=== PATIENT | female | born 1960 | race Two or more races ===

== ENCOUNTER 2025-06-08 12:53 | Inpatient (IN) | payer MEDICARE, MEDICAID ==
[2025-06-08] VITALS (7 sets, daily range): BP systolic 100–117; BP diastolic 58–71; PULSE 76–99; RESP 15–21; TEMP 97.5–98.2; O2SAT 94–99
[~2025-06-08] VITALS: Ht 160 cm; Wt 138.5 kg
[~2025-06-08 12:53] MED LIST: SILD20TA41 PO; TIMO0.5S32 EACHEYE; [UNRECOGNIZED DRUG - CODE] EACHEYE
--- NOTE | 2025-06-08 13:14 | ED.PDOC ---
SOB-HPI HPI Comments HPI: 65 year old female presents to the emergency department via EMS with a chief complaint of shortness of breath onset 1 month. Per EMS, patient has been experiencing shortness of breath for the past month as well as bilateral feet swelling, abdominal distention, worsens with exertion. Today, shortness of breath worsened, 911 was called. Upon EMS arrival, O2 sat was 85% on RA, was placed on 2L O2, sat improved to 97%. Patient experienced similar episode July 2024, was admitted for about 2 weeks. Denies chest pain, dizziness, fever, chills, cough, cold, congestion, numbness/tingling. No other symptoms or modifying factors present at this time. Initial Vitals BP: 105/60 HR: 70 RR: 17 O2 Sat: 97% on 2L Temp: 98.2 F Past Medical history: CHF, anemia, a-fib, pulmonary HTN Past Surgical history: Denies Medications: Lasix Social History: Denies smoking, ETOH, and drug use. Allergies: NKDA HPI: Poor Historian. REVIEW OF SYSTEMS: CONSTITUTIONAL: Denies acute: fever, diaphoresis, chills, generalized weakness. HEAD: Denies acute: headache, photophobia Eyes: Denies acute: Double vision, vision loss, eye pain, eye discharge. EARS: Denies acute: tinnitus, hearing loss, ear discharge, ear pain, THROAT: Denies acute: sore throat, swelling, difficulty swallowing , pain with swallowing, change in voice. NECK: Denies acute: neck pain, neck swelling, stiff neck. HEART: Denies acute : chest pain, palpitations, LUNGS: Denies acute: wheezing, cough, hemoptysis ABDOMEN: Denies acute: abdominal pain, Nausea, Vomiting, diarrhea, melena , hematemesis, hematochezia SKIN: Denies acute: rash, redness, lesions, itchiness. EXTREMITIES: Denies acute: calf pain, numbness, tingling, weakness, denies pain in extremity. Denies acute: Low back pain. Neuro: Denies acute: focal neurological deficit, motor or sensory focal neurological deficit, tremors, seizure like activity, confusion, dizziness, change in mental status, loss of bowel or bladder function, cauda equina like symptoms. : Denies acute: dysuria, hematuria, flank pain, increase in urinary frequency. PSYCH: Denies acute: hallucination, suicidal ideation, homicidal ideation. FEMALE: Denies acute: abnormal vaginal bleeding, foul odor, unusual discharge. PHYSICAL EXAM: General: ----moderate---acute distress, awake and alert. Head: normocephalic, atraumatic. Neck: supple, trachea is midline, no swelling. Throat: Normal phonation. Eyes:, no erythema, no purulent discharge, no proptosis, no icterus. Heart: regular rate, regular rhythm, mild murmur noted. Lungs: Moderate apparent respiratory distress, Able to speak in full sentences. No wheezing, no rhonchi, no crackles. No stridors Clear to auscultation bilaterally. Abdomen: non tender to palpation, non distended, soft, no guarding, no rebound, + bowel sounds. Obese Neuro: Awake, Alert, oriented to name, self, situation, follows commands GCS=15. Speech is normal. Skin: no petechia, no purpura, no cyanosis, non-pale, not jaundice. Lower extremities: --3/4 b/l - Pitting edema no deformity, no focal swelling, no calf TTP. Makes eye contact. moves all four extremities. Face: no apparent facial droop. ED COURSE: DISCLAIMER: This medical document was created using an electronic medical record system with voice recognition software and computerized dictation system. Although this document has been carefully reviewed, there might still be some phonetic and typographical errors. Occasional wrong-word or "sound-alike" substitutions may have occurred due to the inherent limitations of voice recognition software. These areas are purely typographical due to imperfections of the software programs and do not reflect any compromise in the patient's medical care. Please read the chart carefully and recognize, using context, where these substitutions have occurred. Time Seen by MD: 13:00 Reviewed notes: Medications, Allergies Information Source: Patient, Emergency Med Personnel Mode of Arrival: EMS Severity: Moderate Timing: Months Duration: Since onset Context: With Light Exertion PE Risk Factors: None History of: CHF Prehospital treatment: Oxygen Modifying Factors: Nothing Associated Signs and Symptoms: Leg Swelling Past Medical History PAST MEDICAL HISTORY: AFIB, Anemia, CHF Past Medical History (Other): pulmonary HTN Surgical History: Denies all surgeries COMPETITIVE INTELLIGENCE ANALYST History: No Pertinent COMPETITIVE INTELLIGENCE ANALYST History Family History Family History: Reviewed,noncontributory to illness, No family hx of Cancer, No family hx of DM, No family hx of Heart april, No family hx of HTN, No family hx ofKidney april, No family hx of Liver april, No family hx of Lung april, No family hx of Stroke Social History Smoker: Non-Smoker Alcohol: Denies ETOH Use Drugs: Denies Drug Use Lives In: Home Was a procedure done? Was a procedure done?: No Differential Dx Differential Diagnosis: Other (DDx include ACS, unstable angina, anxiety, PE, pneumothroax, neoplasm, cardiac ischemia, COPD, asthma, CHF, pleural effusion, tobacco abuse, pneumonia, hypoxia, hypercapnia, anemia., infection/sepsis., pulmonary edema. Asthma, Cardiac tamponade, infection.) X-Ray, Labs, Meds, VS Vital Signs Date Time Temp Pulse Resp B/P (MAP) Pulse Ox O2 Delivery O2 Flow Rate FiO2 06/08/25 15:30 99 15 115/58 (77) 95 06/08/25 14:15 111/44 06/08/25 13:39 96 Nasal Cannula* 2 28 06/08/25 13:20 82 21 96 Nasal Cannula* 2 28 06/08/25 13:20 98.0 82 21 106/55 (72) 96 98.0 06/08/25 12:59 88 06/08/25 12:55 98.2 70 17 105/60 97 98.2 Lab Test 06/08/25 14:41 06/08/25 14:17 06/08/25 13:24 Range/Units Troponin I High Sensitivity 21 25 </=34 ng/L Urine Color Light-yellow Yellow Urine Clarity Clear Clear Urine pH 5.5 5.0-9.0 Urine Specific [place] 1.013 1.001-1.035 Urine Protein Trace H Negative Urine Ketones Negative Negative Urine Blood Negative Negative /uL Urine Nitrite Negative Negative Urine Bilirubin Negative Negative Urine Urobilinogen Normal Negative mg/dL Urine Leukocyte Esterase Trace Negative /uL Urine RBC None seen 0 - 4 /hpf Urine Microscopic WBC 8 H 0-5 /HPF Urine Squamous Epithelial Cells Few <5 /hpf Urine Bacteria None seen None Seen /hpf Urine Glucose 3+ H Normal mg/dL Urine Opiates Screen Neg NEGATIVE Urine Fentanyl Screen Neg NEGATIVE Urine Barbiturates Screen Neg NEGATIVE Urine Phencyclidine Screen Neg NEGATIVE Urine Amphetamines Screen Neg NEGATIVE Urine Benzodiazepines Screen Neg NEGATIVE Urine Cocaine Screen Neg NEGATIVE Urine Cannabinoids Screen Neg NEGATIVE White Blood Count 2.2 L 4.4-10.8 10^3/uL Red Blood Count 3.18 L 4.0-5.20 10^6/uL Hemoglobin 7.9 L 12.2-16.2 g/dL Hematocrit 25.6 L 36.0-46.0 % Mean Corpuscular Volume 80.5 80.0-100.0 fL Mean Corpuscular Hemoglobin 24.7 L 28.0-32.0 pg Mean Corpuscular Hemoglobin Concent 30.7 L 32.0-36.0 g/dL Red Cell Distribution Width 17.4 H 11.8-14.3 % Platelet Count 55 L 140-450 10^3/uL Mean Platelet Volume 7.8 6.9-10.8 fL Neutrophils (%) (Auto) 65.5 37.0-80.0 % Lymphocytes (%) (Auto) 14.3 10.0-50.0 % Monocytes (%) (Auto) 17.2 H 0.0-12.0 % Eosinophils (%) (Auto) 2.7 0.0-7.0 % Basophils (%) (Auto) 0.3 0.0-2.0 % Neutrophils # (Auto) 1.5 L 1.6-8.6 10 ^3/uL Lymphocytes # (Auto) 0.3 L 0.4-5.4 10 ^3/uL Monocytes # (Auto) 0.4 0-1.3 10 ^3/uL Eosinophils # (Auto) 0.1 0-0.8 10 ^3/uL Basophils # (Auto) 0 0-0.2 10 ^3/uL Nucleated Red Blood Cells 0.0 % D-Dimer, Quantitative 1.69 H 0.0-0.49 mg/L FEU Sodium Level 140 136-145 mmol/L Potassium Level 5.2 H 3.5-5.1 mmol/L Chloride Level 107 98-107 mmol/L Carbon Dioxide Level 24 20-31 mmol/L Anion Gap 9 5-15 Blood Urea Nitrogen 57 H 9-23 mg/dL Creatinine 1.58 H 0.550-1.02 mg/dL Glomerular Filtration Rate Calc 36 >90 mL/min BUN/Creatinine Ratio 36.1 H 10.0-20.0 Serum Glucose 120 H 74-106 mg/dL Hemoglobin A1c < 3.8 <5.7 % A1C Calcium Level 8.9 8.7-10.4 mg/dL Magnesium Level 2.7 H 1.6-2.6 mg/dL Iron Level 30 L 50-170 ug/dL Total Iron Binding Capacity 440 H 250-425 ug/dL Percent Iron Saturation 6.8 L 15-50 % Ferritin 13.2 10-291 ng/mL Total Bilirubin 0.9 0.2-1.0 mg/dL Aspartate Amino Transferase (AST) 14 13-40 U/L Alanine Aminotransferase (ALT) < 9 7-40 U/L Alkaline Phosphatase 66 46-116 U/L B-Type Natriuretic Peptide 182.49 0-100 pg/mL Total Protein 7.6 5.7-8.2 g/dL Albumin 4.3 3.2-4.8 g/dL Triglycerides Level 80 < 150 mg/dL Cholesterol Level 93 < 200 mg/dL LDL Cholesterol 51 < 100 mg/dL HDL Cholesterol 33 L 40-59 mg/dL Vitamin B12 Level 1119 H 211-911 pg/mL Vitamin D 25-Hydroxy 59.1 30.0-100 ng/mL Folic Acid 10.69 >5.38 ng/mL Thyroid Stimulating Hormone (TSH) 2.81 0.55-4.78 uIU/mL [place] [id number] Ph: [phone] DIAGNOSTIC IMAGING Diagnostic Imaging Report : [id number] Signed PATIENT: RAIZA TUCKER ACCT: [id number] UNIT: [id number] : 1960 LOC: ER ROOM / BED: / AGE / SEX: 65 / F ADM STATUS: REG ER SERVICE 1254 ORDERING PHYSICIAN: NADEGE LICEA DO PROCEDURE(s): CXRP - CHEST PORTABLE REASON: sob ORDER NUMBER(s): [id number], ACCESSION NUMBER(s): [id number] EXAM: XY CHEST PORTABLE Indication: sob Technique: Single frontal view of the chest was obtained Comparison: None FINDINGS: Lines and Tubes: None Lungs: No focal consolidation. Pulmonary vascular congestion. Pleura: No effusion. No pneumothorax. Cardiomediastinal contours: Cardiomegaly. Bones: No acute osseous abnormality. IMPRESSION: Cardiomegaly with pulmonary vascular congestion. ATED BY: ODESSA HILL MD DICTATED DATE/TIME: 06/08/25 1342 SIGNED BY: ODESSA HILL MD SIGNED DATE/TIME: 06/08/25 1342 CC: Time of 1ST Reevaluation: 13:30 Reevaluation 1ST: Unchanged Patient Education/Counseling: Diagnosis, Treatment Family Education/Counseling: No Family Present Comments MDM: patient presented with the above HPI.---dyspnea--workup was initiated. patient was found with the above mentioned diagnosis. the following medications were ordered: please refer to order lists of meds and tests obtained by myself Dr. Licea. Patient ED course and VS have been stabilized. Patient has been reassessed in the ED and remained in a stable condition. Pertinent incidental findings were discussed with the patient and/or family. Patient/family voices understanding and is agreeable with plan. Patient has been observed in the ED adequate length of time to insure improvement/stability. Escalation of care considered: Consideration of escalation to observation or admission Patient was ADMITTED to the medicine team for further evaluation and treatment of their presentation. All the reports of any imaging studies that were ordered by myself were reviewed by myself. Departure 1 Departure Time of Disposition: 13:49 Impression: Primary Impression: CHF exacerbation Additional Impressions: Anemia Thrombocytopenia Hypoxemia Disposition: ADMITTED INPATIENT Admit to: Tele Condition: Guarded e-Prescriptions Ferrous Sulfate (FERROUS SULFATE) 325 Mg Tb 1 TAB PO DAILY for 30 Days, #30 TAB 1 Refill Prov: CHRIS ROQUE 06/12/25 Albuterol Sulfate (Albuterol Sulfate Hfa) 108 Mcg/Act Aer 108 MCG IN Q6HP PRN for 30 Days, #1 AER Prov: CHRIS ROQUE 06/12/25 Furosemide (Lasix) 40 Mg Tab 40 MG PO BID for 30 Days, #60 TAB Prov: CHRIS ROQUE 06/12/25 Discharged With: Self Critical Care Note Critical Care Time?: Yes (45 min-critical care time only) Heart Score Heart Score: Heart Score Response (Comments) Value History Slightly Suspicious 0 EKG Normal 0 Age >65 2 Risk Factors 1 or 2 risk factors 1 Troponin Normal limit 0 Total 3 I personally scribed for NADEGE LICEA DO ([email or web address]) on 06/08/25 at 13:14. Electronically submitted by Edith Bhagat ([email or web address]). I personally scribed for NADEGE LICEA DO ([email or web address]) on 06/08/25 at 14:00. Electronically submitted by Edith Bhagat ([email or web address]). NADEGE LICEA DO Jun 08, 2025 13:14
[2025-06-08 13:38] LABS: Mean Corpuscular Hemoglobin 24.7 pg (28.0-32.0)
[2025-06-08 13:40] LABS: Hematocrit 25.6 % (36.0-46.0); Hemoglobin 7.9 g/dL (12.2-16.2); Mean Corpuscular Volume 80.5 fL (80.0-100.0); Nucleated Red Blood Cells % 0.0 %
--- NOTE | 2025-06-08 13:44 | DVH ---
EXAM: XY CHEST PORTABLE Indication: sob Technique: Single frontal view of the chest was obtained Comparison: None FINDINGS: Lines and Tubes: None Lungs: No focal consolidation. Pulmonary vascular congestion. Pleura: No effusion. No pneumothorax. Cardiomediastinal contours: Cardiomegaly. Bones: No acute osseous abnormality. IMPRESSION: Cardiomegaly with pulmonary vascular congestion.
[2025-06-08 13:50] LABS: Albumin 4.3 g/dL (3.2-4.8); Alkaline Phosphatase 66 U/L (46-116); Anion Gap 9 (5-15); BUN/Creatinine Ratio 36.1 (10.0-20.0); Bilirubin, Total 0.9 mg/dL (0.2-1.0); Calcium 8.9 mg/dL (8.7-10.4); Carbon Dioxide 24 mmol/L (20-31); Chloride 107 mmol/L (98-107); Sodium 140 mmol/L (136-145); Total Protein 7.6 g/dL (5.7-8.2)
[2025-06-08 13:57] LABS: Blood Urea Nitrogen 57 mg/dL (9-23); Glucose 120 mg/dL (74-106); Potassium 5.2 mmol/L (3.5-5.1)
[2025-06-08 13:58] LABS: Alanine Aminotransferase < 9 U/L (7-40)
[2025-06-08] MEDS: FUROSEMIDE 100 MG/10ML VIAL IV ONE (14:15)
[2025-06-08 14:44] LABS: Urine Protein, UAD TRACE (Negative)
[2025-06-08] MEDS ORDERED: FUROSEMIDE 40 MG/4 ML VIAL IV SCH ×2 (16:15→16:30)
--- NOTE | 2025-06-08 16:23 | DVHHP2 ---
History of Present Illness History of Present Illness Patient is 65 years old female with past medical history of CHF, pulmonary hypertension, obstructive sleep apnea, use CPAP at night at home, atrial fibrillation not taking anticoagulant due to history of recurrent blood transfusion due to severe anemia, anemia came with a complaint of shortness of breaths. As per patient she has been having shortness of breaths for last 1-2 months which has been getting worse gradually. Patient also reported bilateral leg swelling that has been going for 3 months and also abdominal distention for the same duration. Patient reported she gets shortness of breaths when she goes from bedroom to the kitchen. Patient denied any chest pain, palpitation, diarrhea, PND or orthopnea. Patient uses CPAP at night at home. Patient reported history of several blood transfusion due to severe anemia, hemoglobin was as low as 4. Patient also mentioned that she saw hemato oncologist but hardik araiza could find out what was the reason for her pancytopenia/severe anemia. Patient also had a colonoscopy and endoscopy last year in July in 2023 at [facility], nothing abdominal noted as per patient. Patient also reported due to severe anemia patient could not be on Eliquis and her mounter and PCP took her off Eliquis. Initial lab workup revealed leukopenia with a WBC 2.2, thrombocytopenia with a platelet 55, [id number] anemia with a hemoglobin 7.9, RDW 17.4, potassium 4.2, serum creatinine 1.58, GFR 36, BUN 57, BNP 182, troponin I 25. Urinalysis glucose 3+, chest x-ray cardiomegaly with vascular congestion. PMH-CHF, pulmonary hypertension, atrial fibrillation not taking anticoagulant due to history of recurrent blood transfusion due to severe anemia, anemia PSH- x3 Allergy- NKDA Personal History/ Social History- denies smoking/alcoholism/drug abuse, lives at home with son. Review of other system Cardiovascular- deny acute cough or palpitation Gastrointestinal- denies any rectal bleeding, nausea or vomiting Musculoskeletal-denies acute joint swelling or tenderness or redness Neurological- denies acute dysarthria, dysphagia, change in vision Psychiatry- denies depression or SI or HI Skin- denies acute rash or purpura Review of Systems Allergies: Coded Allergies: NO KNOWN ALLERGIES (Unverified , 06/08/25) Medications Current Medications Medications Dose Ordered Sig/Erum Route Start Time Stop Time Status Last Admin Dose Admin Furosemide 40 mg BIDD IV 06/08/25 16:15 UNV Sildenafil Citrate 20 mg TID@08,14,20 PO 06/08/25 20:00 UNV Spironolactone 25 mg DAILY PO 06/09/25 10:00 UNV Pantoprazole Sodium 40 mg DAILY@0600 PO 06/09/25 06:00 UNV Carvedilol 6.25 mg Q12HR PO 06/08/25 22:00 UNV Exam Vital Signs Vital Signs Date Time Temp Pulse Resp B/P (MAP) Pulse Ox O2 Delivery O2 Flow Rate FiO2 06/08/25 15:30 99 15 115/58 (77) 95 06/08/25 13:39 Nasal Cannula* 2 28 06/08/25 13:20 98.0 98.0 Exam General examination- , mild respiratory distress HEENT- PEERLA, no acute nasal discharge Cardiovascular- S1-S2 audible, rate and rhythm irregular, no murmur Respiratory- bilateral lung crackles+ Gastrointestinal-nontender, bowel sound+. Nondistended Musculoskeletal-no acute joint swelling or tenderness or redness Lower extremity- bilateral leg edema+++, varicose vein bilaterally present Neurological- cranial nerves intact, no acute dysarthria or dysphagia Psychiatry- denies depression or SI or HI Skin- no acute rash or purpura Labs/Xrays Labs Test 06/08/25 14:41 06/08/25 14:17 06/08/25 13:24 Range/Units Troponin I High Sensitivity 21 </=34 ng/L Urine Color Light-yellow Yellow Urine Clarity Clear Clear Urine pH 5.5 5.0-9.0 Urine Specific [place] 1.013 1.001-1.035 Urine Protein Trace H Negative Urine Ketones Negative Negative Urine Blood Negative Negative /uL Urine Nitrite Negative Negative Urine Bilirubin Negative Negative Urine Urobilinogen Normal Negative mg/dL Urine Leukocyte Esterase Trace Negative /uL Urine RBC None seen 0 - 4 /hpf Urine Microscopic WBC 8 H 0-5 /HPF Urine Squamous Epithelial Cells Few <5 /hpf Urine Bacteria None seen None Seen /hpf Urine Glucose 3+ H Normal mg/dL White Blood Count 2.2 L 4.4-10.8 10^3/uL Red Blood Count 3.18 L 4.0-5.20 10^6/uL Hemoglobin 7.9 L 12.2-16.2 g/dL Hematocrit 25.6 L 36.0-46.0 % Mean Corpuscular Volume 80.5 80.0-100.0 fL Mean Corpuscular Hemoglobin 24.7 L 28.0-32.0 pg Mean Corpuscular Hemoglobin Concent 30.7 L 32.0-36.0 g/dL Red Cell Distribution Width 17.4 H 11.8-14.3 % Platelet Count 55 L 140-450 10^3/uL Mean Platelet Volume 7.8 6.9-10.8 fL Neutrophils (%) (Auto) 65.5 37.0-80.0 % Lymphocytes (%) (Auto) 14.3 10.0-50.0 % Monocytes (%) (Auto) 17.2 H 0.0-12.0 % Eosinophils (%) (Auto) 2.7 0.0-7.0 % Basophils (%) (Auto) 0.3 0.0-2.0 % Neutrophils # (Auto) 1.5 L 1.6-8.6 10 ^3/uL Lymphocytes # (Auto) 0.3 L 0.4-5.4 10 ^3/uL Monocytes # (Auto) 0.4 0-1.3 10 ^3/uL Eosinophils # (Auto) 0.1 0-0.8 10 ^3/uL Basophils # (Auto) 0 0-0.2 10 ^3/uL Nucleated Red Blood Cells 0.0 % Sodium Level 140 136-145 mmol/L Potassium Level 5.2 H 3.5-5.1 mmol/L Chloride Level 107 98-107 mmol/L Carbon Dioxide Level 24 20-31 mmol/L Anion Gap 9 5-15 Blood Urea Nitrogen 57 H 9-23 mg/dL Creatinine 1.58 H 0.550-1.02 mg/dL Glomerular Filtration Rate Calc 36 >90 mL/min BUN/Creatinine Ratio 36.1 H 10.0-20.0 Serum Glucose 120 H 74-106 mg/dL Calcium Level 8.9 8.7-10.4 mg/dL Total Bilirubin 0.9 0.2-1.0 mg/dL Aspartate Amino Transferase (AST) 14 13-40 U/L Alanine Aminotransferase (ALT) < 9 7-40 U/L Alkaline Phosphatase 66 46-116 U/L B-Type Natriuretic Peptide 182.49 0-100 pg/mL Total Protein 7.6 5.7-8.2 g/dL Albumin 4.3 3.2-4.8 g/dL SEPSIS Sepsis Screen Date sepsis recognized/suspect: Jun 08, 2025 Time Sepsis recognized/suspect: 1319 Recent Procedure: No On Antibiotic Therapy: No Respiratory Rate >20: Yes Heart Rate >90: No Temp<36 C (96.8 F) or >38.3 C: No SBP <90 or MAP <65 mmHG: No New Acute Mental Status Change: No Is the patient on CPAP, BIPAP,: No Physician Orders Remanufacturing Technician (06/08/25 ) Chest Portable (06/08/25 12:59) Electrocardigram (06/08/25 12:59) Troponin-I Hs (06/08/25 15:59) Electrocardigram (06/08/25 13:59) Electrocardigram (06/08/25 15:59) Admit (06/08/25 15:38) Allergies (06/08/25 15:38) Code Status (06/08/25 15:38) Renal Standard(2gna,3gk,Lopho) (06/08/25 Dinner) Complete Blood Count (06/09/25 04:00) Comprehensive Metabolic Panel (06/09/25 04:00) Cardiac Diet-2gna,Lofat,Lochol (06/08/25 Dinner) Condition: Unstable (06/08/25 15:38) Oxygen By Nasal Cannula (06/08/25 15:38) Notify Md Of Changes From Base (06/08/25 15:38) Crowning Hammer Operator For 24 Hours (06/08/25 15:38) * Cardiology Consult (06/08/25 15:59) Thyroid Stimulating Hormone (06/08/25 16:03) Lipid Panel (06/08/25 16:03) Hemoglobin A1c (06/08/25 16:03) Magnesium (06/08/25 16:03) Drug Screen (06/08/25 16:03) Furosemide Injection (Lasix Injection) (06/08/25 16:15) Sildenafil Citrate (Revatio) (06/08/25 20:00) Daily Weight (06/08/25 16:06) BIPAP (06/08/25 16:14) Spironolactone (Aldactone) (06/09/25 10:00) Pantoprazole Tablet (Protonix Tablet) (06/09/25 06:00) Bilat Lower Dvt (06/08/25 16:14) Carvedilol Tablet (Coreg Tablet) (06/08/25 22:00) Iron Panel (06/08/25 16:18) Ferritin (06/08/25 16:18) Swartz Stain Slide (06/08/25 16:18) Vitamin B12 (06/08/25 16:18) Vitamin D, 25-Hydroxy (06/08/25 16:18) Folate (Folic Acid) (06/08/25 16:18) Furosemide Injection (Lasix Injection) (06/08/25 16:30) Vital Signs Date Time Temp Pulse Resp B/P (MAP) Pulse Ox O2 Delivery O2 Flow Rate FiO2 06/08/25 15:30 99 15 115/58 (77) 95 06/08/25 14:15 111/44 06/08/25 13:39 96 Nasal Cannula* 2 28 06/08/25 13:20 82 21 96 Nasal Cannula* 2 28 06/08/25 13:20 98.0 82 21 106/55 (72) 96 98.0 06/08/25 12:59 88 06/08/25 12:55 98.2 70 17 105/60 97 98.2 Laboratory Tests Test 06/08/25 13:24 White Blood Count 2.2 10^3/uL (4.4-10.8) L Medications Medications Dose Ordered Sig/Erum Route Start Time Stop Time Status Last Admin Dose Admin Ceftriaxone Sodium 50 ml @ 100 mls/hr ONCE ONCE IV 06/08/25 15:30 06/08/25 15:59 DC 06/08/25 16:10 100 MLS/HR Furosemide 60 mg ONCE ONCE IV 06/08/25 13:00 06/08/25 13:01 DC 06/08/25 14:15 60 MG Assessment/Plan Assessment/Plan Assessment and plan # acute hypoxic respiratory failure likely due to CHF systolic versus diastolic # pulmonary hypertension # bilateral leg swelling, rule out DVT -continue Lasix 40 mg IV daily -carvedilol 6.25 mg p.o. b.i.d. -spironolactone 25 mg p.o. daily -sildenafil as prescribed -pending echo 2D -pending Doppler study of the lower extremity to rule out DVT -pending cardiology consult # atrial fibrillation with controlled ventricular rate -restarted home medication carvedilol -continue telemetry # pancytopenia # severe anemia under evaluation # leukopenia # thrombocytopenia -ordered stool for occult blood test -peripheral blood smear -iron profile -monitor CBC # obstetric sleep apnea -patient is a CPAP tonight at home -ordered BiPAP at night # RUDDY likely due to VMN -avoid dehydration and nephrotoxic drugs -monitor CMP Goals of care, Code status ; discussed with >15 minutes PUD prophylaxis: Pantoprazole DVT prophylaxis: SCD Plan discussed with Dr. Murphy , nursing staff, Total time spent on patient evaluation, chart review, assessment and plan, discussion discussion >35 minutes Plan discussed with: Patient, Other (RN) My Orders Orders - CHRIS ROQUE RESIDENT Procedure Category Date Status Time Admit ADMIT 06/08/25 Transmitted 15:38 Allergies GILDARDO 06/08/25 In Process 15:38 Code Status CODE 06/08/25 Transmitted 15:38 Renal DIET 06/08/25 Transmitted Standard(2gna,3gk,Lopho) Dinner Complete Blood Count LAB 06/09/25 Verified 04:00 Comprehensive LAB 06/09/25 Verified Metabolic Panel 04:00 Cardiac DIET 06/08/25 Transmitted Diet-2gna,Lofat,Lochol Dinner Condition: Unstable GILDARDO 06/08/25 In Process 15:38 Oxygen By Nasal RT 06/08/25 Transmitted Cannula 15:38 Notify Of Changes [facility] 06/08/25 In Process From Base 15:38 Crowning Hammer Operator For [facility] 06/08/25 In Process 24 Hours 15:38 * Cardiology Consult CONS 06/08/25 Transmitted 15:59 Furosemide Injection PHA 06/08/25 Logged (Lasix Injection) 16:15 Sildenafil Citrate PHA 06/08/25 Logged (Revatio) 20:00 Daily Weight GILDARDO 06/08/25 In Process 16:06 BIPAP RT 06/08/25 Logged 16:14 Spironolactone PHA 06/09/25 Logged (Aldactone) 10:00 Pantoprazole Tablet PHA 06/09/25 Logged (Protonix Tablet) 06:00 Bilat Lower Dvt US 06/08/25 Logged 16:14 Carvedilol Tablet PHA 06/08/25 Logged (Coreg Tablet) 22:00 Iron Panel LAB 06/08/25 Logged 16:18 Ferritin LAB 06/08/25 Logged 16:18 Swartz Stain Slide LAB 06/08/25 Logged 16:18 Vitamin B12 LAB 06/08/25 Logged 16:18 Vitamin D, 25-Hydroxy LAB 06/08/25 Logged 16:18 Folate (Folic Acid) LAB 06/08/25 Logged 16:18 Furosemide Injection PHA 06/08/25 Transmitted (Lasix Injection) 16:30 Date of Service: Jun 08, 2025 Billing Provider: MELISA MURPHY MD Common Visit Codes: 87551-[id number] INP/OBS CARE (HIGH) Secondary Visit Codes: 83316-[id number] CARE PLAN 30 MINUTES CHRIS ROQUE RESIDENT Jun 08, 2025 16:23
--- NOTE | 2025-06-08 16:59 | DVH ---
BILATERAL LOWER EXTREMITY VENOUS DUPLEX REASON FOR EXAMINATION: Bilateral lower extremity pain and edema. COMPARISON: None TECHNIQUE: Using real-time freeze-frame technique with a high-frequency transducer, multiple longitu dinal and transverse sections were obtained. Simultaneous color flow and spectral Doppler imaging wa s performed. FINDINGS: There is good visualization of the deep venous system with no intraluminal filling defects identified. Normal venous compressibility is seen and there is flow augmentation. Color flow Doppler imaging is unremarkable. There is a complex casper's cyst in the left popliteal fossa measuring 4.1 x 3.2 x 6.3 cm. IMPRESSION: NO EVIDENCE OF DEEP VENOUS THROMBOSIS.
--- NOTE | 2025-06-08 17:00 | DVHINCON2 ---
Date Seen: Jun 08, 2025 Referring Physician MD Breanne resident Reason for Consultation Shortness of breath, bilateral lower extremity edema History of Present Illness This is a 65-year-old female patient who presents to the emergency room with chief complaint of worsening shortness of breath and generalized edema for over one month. She now comes to the emergency room for further evaluation of symptoms. Cardiology has been consulted at this time. Initial twelve electrocardiogram reveals atrial fibrillation with artifact in multiple leads ( poor quality ECG). Patient remains in atrial fibrillation with controlled rate on monitoring coordinator at time of assessment. The patient denies any chest pain. Initial troponin level of 25ng/L. Significant past medical history includes congestive heart failure, atrial fibrillation (off anticoagulation), hypertension, pulmonary hypertension, obstructive sleep apnea with CPAP use at night, liver cirrhosis, chronic anemia, and obesity. The patient reports that she follows up with a care consultant at [facility]. She reports undergoing a coronary angiogram approximately 2-3 years ago without any catheter based intervention. She also reports that she was started on warfarin therapy for her atrial fibrillation but developed severe anemia requiring packed red blood cell transfusions and was subsequently taken off of warfarin therapy. Past Medical History Past medical history reviewed. No other significant than mentioned above. Past Surgical History Family History Family history reviewed. Social History Denies the use of tobacco, alcohol or illicit drugs. Allergies: Coded Allergies: NO KNOWN ALLERGIES (Unverified , 06/08/25) Home Meds Home medications reviewed. Current Medications Current Medications Medications (Trade) Dose Ordered Sig/Erum Route PRN Reason Start Time Stop Time Status Last Admin Furosemide (Lasix Injection) 40 mg BIDD IV 06/08/25 16:15 06/08/25 16:21 DC Sildenafil Citrate (Revatio) 20 mg TID@08,14,20 PO 06/08/25 20:00 UNV Spironolactone (Aldactone) 25 mg DAILY PO 06/09/25 10:00 UNV Pantoprazole Sodium (Protonix Tablet) 40 mg DAILY@0600 PO 06/09/25 06:00 UNV Carvedilol (Coreg Tablet) 6.25 mg Q12HR PO 06/08/25 22:00 UNV Furosemide (Lasix Injection) 40 mg DAILY IV 06/08/25 16:30 UNV Review of Systems Constitutional: No symptom reported Ears, Nose, & Throat: No symptom reported Eyes: No symptom reported Neurological: No symptoms reported Pulmonary/Respiratory: Shortness of breath Cardiovascular: Bilateral lower extremity edema Gastrointestinal: No symptom reported Genitourinary: No symptom reported Musculoskeletal: No symptom reported Skin: No symptom reported Psychiatric: No symptom reported Endocrine: No symptom reported Hematologic/Lymphatic: No symptom reported Vital Signs Vital Signs Date Time Temp Pulse Resp B/P (MAP) Pulse Ox O2 Delivery O2 Flow Rate FiO2 06/08/25 15:30 99 15 115/58 (77) 95 06/08/25 13:39 Nasal Cannula* 2 28 06/08/25 13:20 98.0 98.0 Physical Exam General Appearance: Cooperative. Morbidly obese Pulmonary/Respiratory: Diminished bilateral bases Cardiovascular/Chest: Irregularly irregular rate and rhythm. Peripheral Pulses: 2+ Radial (R). 2+ Radial (L). 2+ Pedal (R). 2+ Pedal (L) Abdominal Exam: Normal bowel sounds. Ankle Exam: 2+ pitting edema Lower extremities: 2+ pitting edema Neuro/Mental Status: A/OX4, coherent. Thoughts/Psych: Normal thought pattern. Appropriate mood and affect. Good judgment and insight. Appearance: No acute distress. Skin Exam: Normal inspection. Normal color. Warm and dry. BLE varicose veins noted. Labs/Diagnostic Data Labs Test 06/08/25 14:41 06/08/25 14:17 06/08/25 13:24 Range/Units Troponin I High Sensitivity 21 </=34 ng/L Urine Color Light-yellow Yellow Urine Clarity Clear Clear Urine pH 5.5 5.0-9.0 Urine Specific Roberts 1.013 1.001-1.035 Urine Protein Trace H Negative Urine Ketones Negative Negative Urine Blood Negative Negative /uL Urine Nitrite Negative Negative Urine Bilirubin Negative Negative Urine Urobilinogen Normal Negative mg/dL Urine Leukocyte Esterase Trace Negative /uL Urine RBC None seen 0 - 4 /hpf Urine Microscopic WBC 8 H 0-5 /HPF Urine Squamous Epithelial Cells Few <5 /hpf Urine Bacteria None seen None Seen /hpf Urine Glucose 3+ H Normal mg/dL White Blood Count 2.2 L 4.4-10.8 10^3/uL Red Blood Count 3.18 L 4.0-5.20 10^6/uL Hemoglobin 7.9 L 12.2-16.2 g/dL Hematocrit 25.6 L 36.0-46.0 % Mean Corpuscular Volume 80.5 80.0-100.0 fL Mean Corpuscular Hemoglobin 24.7 L 28.0-32.0 pg Mean Corpuscular Hemoglobin Concent 30.7 L 32.0-36.0 g/dL Red Cell Distribution Width 17.4 H 11.8-14.3 % Platelet Count 55 L 140-450 10^3/uL Mean Platelet Volume 7.8 6.9-10.8 fL Neutrophils (%) (Auto) 65.5 37.0-80.0 % Lymphocytes (%) (Auto) 14.3 10.0-50.0 % Monocytes (%) (Auto) 17.2 H 0.0-12.0 % Eosinophils (%) (Auto) 2.7 0.0-7.0 % Basophils (%) (Auto) 0.3 0.0-2.0 % Neutrophils # (Auto) 1.5 L 1.6-8.6 10 ^3/uL Lymphocytes # (Auto) 0.3 L 0.4-5.4 10 ^3/uL Monocytes # (Auto) 0.4 0-1.3 10 ^3/uL Eosinophils # (Auto) 0.1 0-0.8 10 ^3/uL Basophils # (Auto) 0 0-0.2 10 ^3/uL Nucleated Red Blood Cells 0.0 % Sodium Level 140 136-145 mmol/L Potassium Level 5.2 H 3.5-5.1 mmol/L Chloride Level 107 98-107 mmol/L Carbon Dioxide Level 24 20-31 mmol/L Anion Gap 9 5-15 Blood Urea Nitrogen 57 H 9-23 mg/dL Creatinine 1.58 H 0.550-1.02 mg/dL Glomerular Filtration Rate Calc 36 >90 mL/min BUN/Creatinine Ratio 36.1 H 10.0-20.0 Serum Glucose 120 H 74-106 mg/dL Calcium Level 8.9 8.7-10.4 mg/dL Total Bilirubin 0.9 0.2-1.0 mg/dL Aspartate Amino Transferase (AST) 14 13-40 U/L Alanine Aminotransferase (ALT) < 9 7-40 U/L Alkaline Phosphatase 66 46-116 U/L B-Type Natriuretic Peptide 182.49 0-100 pg/mL Total Protein 7.6 5.7-8.2 g/dL Albumin 4.3 3.2-4.8 g/dL Assessment Rule out structural heart disease Atrial fibrillation with controlled rate, unspecified type (off anticoagulation) Hypertension Pulmonary hypertension, severe degree Obstructive sleep apnea with CPAP use Acute on chronic anemia Thrombocytopenia Acute kidney injury Liver cirrhosis Morbid obesity Plan/Recommendation We will continue with the following plan/recommendations (Dr. Zhang): We will proceed with obtaining a transthoracic echocardiogram to evaluate cardiac function. Continue patient's home guideline directed medical therapy for CHF. We will recommend to hold spironolactone at this given borderline hyperkalemia and acute kidney injury. Strict intake and output, daily weights, maintain fluid restriction and low-sodium diet. [id number] VASc score: 4 points, HAS-BLED score: 3 points. Continue with beta-adalgisa for rate control. Avoid antiarrhythmic agent given unknown duration of atrial fibrillation. Unable to initiate anticoagulation at this time given anemia and thrombocytopenia. Patient reports previously being prescribed warfarin which caused active bleeding and required multiple red blood cell transfusions. Initiate SCDs while inpatient if lower extremity ultrasound negative for DVTs. Continue with close cardiac surveillance. Thank you for allowing us to care for this patient. Please call with any questions or concerns. Critical care time spent: 44 minutes This medical document was created using an electronic medical record system with voice recognition software and computerized dictation system. Although this document has been carefully reviewed, there might still be some phonetic and typographical errors. Occasional wrong-word or ``sound-alike substitutions may have occurred due to the inherent limitations of voice recognition software. These areas are purely typographical due to imperfections of the software programs and do not reflect any compromise in the patient's medical care. Please read the chart carefully and recognize, using context, where these substitutions have occurred. Plan discussed with: Patient NYHA Physical activity limitations: NA Date of Service: Jun 08, 2025 Billing Provider: IVKKI BABCOCK Cardiology Common Codes: [id number] INP/OBS CARE (High) Cardiology Consultation Codes: 26020-[id number] CONSULT <45MIN VIKKI BABCOCK Jun 08, 2025 17:00
[2025-06-08 17:06] LABS: Triglycerides 80.0 mg/dL (< 150)
[2025-06-08 17:07] LABS: Iron 30.0 ug/dL (50-170); Total Iron Binding Capacity 440.0 ug/dL (250-425)
[2025-06-08 17:08] LABS: Cholesterol 93.0 mg/dL (< 200)
[2025-06-08 17:13] LABS: HDL Cholesterol 33.0 mg/dL (40-59); Magnesium 2.7 mg/dL (1.6-2.6)
[2025-06-08 17:16] LABS: Ferritin 13.2 ng/mL (10-291)
[2025-06-08] MEDS: FUROSEMIDE 40 MG/4 ML VIAL IV SCH (18:19)
[2025-06-08] MEDS ORDERED: CARV6.2551 PO (18:21)
[2025-06-08] MEDS ORDERED: DAPA1TAB4 PO (18:21)
[2025-06-08] MEDS ORDERED: FURO40TA4 PO (18:21)
[2025-06-08] MEDS ORDERED: SPIR25TA8 PO (18:21)
[2025-06-08] MEDS ORDERED: AMBR5TAB3 PO (18:21)
[2025-06-08 19:33] LABS: Barbiturate Scree,Urine Neg (NEGATIVE); Benzodiazephine Screen, Urine Neg (NEGATIVE); Cannabinoid Screen, Urine Neg (NEGATIVE); Cocaine Screen, Urine Neg (NEGATIVE); Opiate Scree,Urine Neg (NEGATIVE); Phencyclidine Screen, Urine Neg (NEGATIVE)
[2025-06-08 20:03] LABS: Amphetamine Screen, Urine Neg (NEGATIVE)
[2025-06-08] MEDS: SILDENAFIL CITRATE 20 MG TAB PO SCH (20:42)
[2025-06-08] MEDS ORDERED: CARVEDILOL 3.125 MG TAB PO SCH (22:00)
[2025-06-08] MEDS: CARVEDILOL 3.125 MG TAB PO SCH (22:27)
[2025-06-09] VITALS (19 sets, daily range): BP systolic 99–120; BP diastolic 39–62; PULSE 62–87; RESP 17–22; TEMP 98–98.9; O2SAT 85–100
[2025-06-09] MEDS: PANTOPRAZOLE 40 MG TAB PO SCH (06:25)
--- NOTE | 2025-06-09 06:25 | ECG ---
[facility] Test Date: 2025-06-08 Test Time: 12:59:25 Pat Name: RAIZA TUCKER Department: [facility] ED Patient ID: [facility]-[id number] Room: 0287T Gender: F Supervisor Title: ER : 1960 Requested By: NADEGE LICEA Order Number: [id number] Reading MD: Dalton Zhang Measurements Intervals Economy Rate: 88 P: 0 NC: 0 QRS: 47 QRSD: 140 T: 83 QT: 391 QTc: 473 Interpretive Statements Atrial fibrillation IVCD, consider atypical RBBB Electronically Signed On 06-16-2025 21:34:03 PDT by Dalton Zhang Please click the below link to view image of tracing.
[2025-06-09 07:13] LABS: Hematocrit 21.9 % (36.0-46.0); Mean Corpuscular Hemoglobin 25.6 pg (28.0-32.0); Mean Corpuscular Volume 79.8 fL (80.0-100.0); Nucleated Red Blood Cells % 0.1 %
[2025-06-09 07:20] LABS: Hemoglobin 7.0 g/dL (12.2-16.2)
[2025-06-09 07:21] LABS: Alkaline Phosphatase 57 U/L (46-116); Calcium 8.8 mg/dL (8.7-10.4); Carbon Dioxide 24 mmol/L (20-31)
[2025-06-09 07:22] LABS: BUN/Creatinine Ratio 45.1 (10.0-20.0)
[2025-06-09 07:23] LABS: Anion Gap 9 (5-15)
[2025-06-09 07:25] LABS: Blood Urea Nitrogen 65 mg/dL (9-23); Chloride 105 mmol/L (98-107); Glucose 98 mg/dL (74-106); Potassium 5.5 mmol/L (3.5-5.1); Sodium 138 mmol/L (136-145)
[2025-06-09 07:27] LABS: Alanine Aminotransferase < 9 U/L (7-40); Albumin 4.1 g/dL (3.2-4.8); Bilirubin, Total 0.7 mg/dL (0.2-1.0); Magnesium 2.6 mg/dL (1.6-2.6); Total Protein 7.2 g/dL (5.7-8.2)
[2025-06-09] MEDS: IRON SUCROSE COMPLEX 110 ML IV ONE (07:27)
[2025-06-09] MEDS: EMPAGLIFLOZIN 10 MG TAB PO SCH ×2 (09:23→13:00)
[2025-06-09] MEDS: AMBRISENTAN 5 MG PO SCH (09:52)
[2025-06-09] MEDS ORDERED: SPIRONOLACTONE 25 MG TAB PO SCH (10:00)
[2025-06-09] MEDS ORDERED: ALBUTEROL SULF 2.5 MG/0.5ML(0.5%) NEB SOLN NEB SCH ×2 (10:15→12:00)
[2025-06-09] MEDS: METOCLOPRAMIDE HCL 5MG/ml INJ 2ml VIAL IV ONE (10:15)
[2025-06-09] MEDS ORDERED: IPRATROPIUM BROM 0.5 MG/2.5ML INH SOL NEB SCH ×2 (10:20→12:00)
--- NOTE | 2025-06-09 12:54 | DVHPNRES ---
Progress Note Date Seen: Jun 09, 2025 Resident Creating Document: CHRIS ROQUE RESIDENT Medical Necessity Reason Pt with a Central, PICC or Fol: No Subjective Review of Systems Patient is 65 years old female with past medical history of CHF, pulmonary hypertension, obstructive sleep apnea, use CPAP at night at home, atrial fibrillation not taking anticoagulant due to history of recurrent blood transfusion due to severe anemia, anemia came with a complaint of shortness of breaths. As per patient she has been having shortness of breaths for last 1-2 months which has been getting worse gradually. Patient also reported bilateral leg swelling that has been going for 3 months and also abdominal distention for the same duration. Patient reported she gets shortness of breaths when she goes from bedroom to the kitchen. Patient denied any chest pain, palpitation, diarrhea, PND or orthopnea. Patient uses CPAP at night at home. Patient reported history of several blood transfusion due to severe anemia, hemoglobin was as low as 4. Patient also mentioned that she saw hemato oncologist but nobody could find out what was the reason for her pancytopenia/severe anemia. Patient also had a colonoscopy and endoscopy last year in July in 2023 at [facility], nothing abdominal noted as per patient. Patient also reported due to severe anemia patient could not be on Eliquis and her medical planner and PCP took her off Eliquis. Initial lab workup revealed leukopenia with a WBC 2.2, thrombocytopenia with a platelet 55, [id number]-[id number] anemia with a hemoglobin 7.9, RDW 17.4, potassium 4.2, serum creatinine 1.58, GFR 36, BUN 57, BNP 182, troponin I 25. Urinalysis glucose 3+, chest x-ray cardiomegaly with vascular congestion. Lower extremity Doppler study negative for DVT PMH-CHF, pulmonary hypertension, atrial fibrillation not taking anticoagulant due to history of recurrent blood transfusion due to severe anemia, anemia PSH- x3 Allergy- NKDA Personal History/ Social History- denies smoking/alcoholism/drug abuse, lives at home with son. Patient was seen today at bedside. Labs and chart reviewed. Patient reported feeling better today. Patient was seen by Cardiology, recommendation reviewed and appreciated. Patient had vomiting after taking Jardiance, hold Jardiance for now. Pending echo 2D report. Patient's hemoglobin dropped down to 7.0, ordered 1 unit of blood transfusion. Patient's serum creatinine trending down. Objective vital signs Vital Sign Date Time Temp Pulse Resp B/P (MAP) Pulse Ox O2 Delivery O2 Flow Rate FiO2 06/09/25 12:40 71 18 100 06/09/25 11:14 98.9 104/39 98.9 06/09/25 08:00 Room Air* 0 21 Total Intake and Output 06/08/25 06/08/25 06/09/25 15:00 23:00 07:00 Intake Total 170 ml 650 ml Output Total 1000 ml 1700 ml Balance -830 ml -1050 ml medications Current Medications Medications Dose Ordered Sig/Erum Route Start Time Stop Time Status Last Admin Dose Admin Sildenafil Citrate 20 mg TID@08,14,20 PO 06/08/25 20:00 Hold 06/08/25 20:42 20 MG Pantoprazole Sodium 40 mg DAILY@0600 PO 06/09/25 06:00 06/09/25 06:25 40 MG Carvedilol 6.25 mg Q12HR PO 06/08/25 22:00 Cancel Furosemide 40 mg DAILY IV 06/08/25 16:30 Cancel Furosemide 40 mg BIDD IV 06/08/25 18:00 06/09/25 06:26 40 MG Carvedilol 3.125 mg Q12HR PO 06/08/25 22:00 06/09/25 09:23 3.125 MG Empaglifozin 10 mg DAILY PO 06/09/25 10:00 06/09/25 09:23 10 MG Patient Own Medication 5 mg DAILY PO 06/09/25 10:00 Albuterol 2.5 mg Q6H NEB 06/09/25 18:00 Ipratropium [place] 0.5 mg Q6H NEB 06/09/25 18:00 Examination General examination- , mild respiratory distress HEENT- PEERLA, no acute nasal discharge Cardiovascular- S1-S2 audible, rate and rhythm irregular, no murmur Respiratory- bilateral lung crackles+ Gastrointestinal-nontender, bowel sound+. Nondistended Musculoskeletal-no acute joint swelling or tenderness or redness Lower extremity- bilateral leg edema+++, varicose vein bilaterally present Neurological- cranial nerves intact, no acute dysarthria or dysphagia Psychiatry- denies depression or SI or HI Skin- no acute rash or purpura laboratory and microbiology Laboratory Tests 06/09/25 04:36 Test 06/09/25 04:36 Range/Units Serum Glucose 98 74-106 mg/dL Problem List/Assessment/Plan Problem List/Assessment/Plan Assessment/Plan-plan is to resume sildenafil after blood transfusion if no volume well. Assessment and plan # acute hypoxic respiratory failure likely due to CHF systolic versus diastolic # pulmonary hypertension # bilateral leg swelling, rule out DVT -continue Lasix 40 mg IV bid -carvedilol 6.25 mg p.o. b.i.d. -spironolactone 25 mg p.o. daily -sildenafil as prescribed -pending echo 2D report -Doppler study of the lower extremity negative for DVT - cardiology consult reviewed and appreciated -hold Jardiance as patient had vomiting could not tolerate Jardiance - will hold sildenafil for now # atrial fibrillation with controlled ventricular rate -restarted home medication carvedilol -continue telemetry # pancytopenia # severe anemia under evaluation # leukopenia # thrombocytopenia -ordered 1 unit of blood transfusion for severe anemia, hemoglobin 7.0 -ordered stool for occult blood test -peripheral blood smear -iron profile-serum iron 30, ferritin 13.2 -ordered IV iron 1 time -plan is to continue ferrous sulfate 325 mg p.o. daily -monitor CBC # obstetric sleep apnea -patient is a CPAP tonight at home -ordered BiPAP at night # RUDDY likely due to cardiorenal syndrome -avoid dehydration and nephrotoxic drugs -monitor CMP Goals of care, Code status ; discussed with >15 minutes PUD prophylaxis: Pantoprazole DVT prophylaxis: SCD Plan discussed with Dr. Pizano , nursing staff, Total time spent on patient evaluation, chart review, assessment and plan, discussion discussion >35 minutes Plan discussed with: Patient, Other (RN) Plan discussed with: Patient, Other (RN) My Orders My Orders Orders - CHRIS ROQUE RESIDENT Procedure Category Date Status Time Admit ADMIT 06/08/25 Transmitted 15:38 Allergies GILDARDO 06/08/25 In Process 15:38 Code Status CODE 06/08/25 Transmitted 15:38 Renal DIET 06/08/25 Transmitted Standard(2gna,3gk,Lopho) Dinner Cardiac DIET 06/08/25 Transmitted Diet-2gna,Lofat,Lochol Dinner Condition: Unstable GILDARDO 06/08/25 In Process 15:38 Oxygen By Nasal RT 06/08/25 Transmitted Cannula 15:38 Notify Of Changes GILDARDO 06/08/25 In Process From Base 15:38 Stemhole Borer And Topper For GILDARDO 06/08/25 In Process 24 Hours 15:38 * Cardiology Consult CONS 06/08/25 Transmitted 15:59 Sildenafil Citrate PHA 06/08/25 In Process (Revatio) 20:00 Daily Weight GILDARDO 06/08/25 In Process 16:06 BIPAP RT 06/08/25 Logged 16:14 Pantoprazole Tablet PHA 06/09/25 In Process (Protonix Tablet) 06:00 Bilat Lower Dvt US 06/08/25 Resulted 16:14 Stool Occult Blood LAB 06/08/25 Logged 16:31 (Nf) Ambrisentan PHA 06/09/25 In Process 10:00 Albuterol Medneb PHA 06/09/25 In Process (Ventolin Medneb) 18:00 Ipratropium Medneb PHA 06/09/25 In Process (Atrovent Medneb) 18:00 Date of Service: Jun 09, 2025 Billing Provider: MELISA PIZANO MD Common Visit Codes: [id number] INP/OBS CARE (HIGH) CHRIS ROQUE RESIDENT Jun 09, 2025 12:54 MELISA PIZANO MD Jun 15, 2025 22:49
[2025-06-09] MEDS: SODIUM ZIRCONIUM CYCL 10 GM PAK PO ONE (14:33)
[2025-06-09] MEDS: CALCIUM GLUC 1,000mg/50ml-NS 50 ML IV ONE (14:33)
[2025-06-09 17:56] LABS: Hematocrit 22.8 % (36.0-46.0); Hemoglobin 7.1 g/dL (12.2-16.2); Mean Corpuscular Hemoglobin 25.1 pg (28.0-32.0); Mean Corpuscular Volume 81.1 fL (80.0-100.0); Nucleated Red Blood Cells % 0.0 %
[2025-06-09] MEDS: ALBUTEROL SULF 2.5 MG/0.5ML(0.5%) NEB SOLN NEB SCH (18:34)
[2025-06-09] MEDS: IPRATROPIUM BROM 0.5 MG/2.5ML INH SOL NEB SCH (18:35)
[2025-06-09] MEDS: LACTULOSE 20Gm/30ML SOLN PO ONE (23:56)
[2025-06-10] VITALS (17 sets, daily range): BP systolic 108–125; BP diastolic 50–81; PULSE 64–98; RESP 16–19; TEMP 97.6–99; O2SAT 90–100
[2025-06-10 04:37] LABS: Hemoglobin 7.2 g/dL (12.2-16.2)
[2025-06-10 04:40] LABS: Hematocrit 22.3 % (36.0-46.0); Mean Corpuscular Hemoglobin 25.7 pg (28.0-32.0); Mean Corpuscular Volume 80.0 fL (80.0-100.0)
[2025-06-10 05:03] LABS: Alanine Aminotransferase < 9 U/L (7-40); Albumin 3.8 g/dL (3.2-4.8); Alkaline Phosphatase 55 U/L (46-116); Anion Gap 10 (5-15); BUN/Creatinine Ratio 42.5 (10.0-20.0); Bilirubin, Total 0.9 mg/dL (0.2-1.0); Blood Urea Nitrogen 65 mg/dL (9-23); Calcium 9.1 mg/dL (8.7-10.4); Carbon Dioxide 26 mmol/L (20-31); Chloride 105 mmol/L (98-107); Glucose 110 mg/dL (74-106); Magnesium 2.4 mg/dL (1.6-2.6); Potassium 4.6 mmol/L (3.5-5.1); Sodium 141 mmol/L (136-145); Total Protein 6.7 g/dL (5.7-8.2)
[2025-06-10 05:23] LABS: Total Cells Counted 100.0 (100)
[2025-06-10 05:24] LABS: Ovalocytes FEW
--- NOTE | 2025-06-10 09:05 | DVHPNRES ---
Progress Note Date Seen: Jun 10, 2025 Resident Creating Document: CHRIS ROQUE RESIDENT Medical Necessity Reason Pt with a Central, PICC or Fol: No Subjective Review of Systems Patient is 65 years old female with past medical history of CHF, pulmonary hypertension, obstructive sleep apnea, use CPAP at night at home, atrial fibrillation not taking anticoagulant due to history of recurrent blood transfusion due to severe anemia, anemia came with a complaint of shortness of breaths. As per patient she has been having shortness of breaths for last 1-2 months which has been getting worse gradually. Patient also reported bilateral leg swelling that has been going for 3 months and also abdominal distention for the same duration. Patient reported she gets shortness of breaths when she goes from bedroom to the kitchen. Patient denied any chest pain, palpitation, diarrhea, PND or orthopnea. Patient uses CPAP at night at home. Patient reported history of several blood transfusion due to severe anemia, hemoglobin was as low as 4. Patient also mentioned that she saw hemato oncologist but nobody could find out what was the reason for her pancytopenia/severe anemia. Patient also had a colonoscopy and endoscopy last year in July in 2023 at [facility], nothing abdominal noted as per patient. Patient also reported due to severe anemia patient could not be on Eliquis and her barrow worker and PCP took her off Eliquis. Initial lab workup revealed leukopenia with a WBC 2.2, thrombocytopenia with a platelet 55, [id number] anemia with a hemoglobin 7.9, RDW 17.4, potassium 4.2, serum creatinine 1.58, GFR 36, BUN 57, BNP 182, troponin I 25. Urinalysis glucose 3+, chest x-ray cardiomegaly with vascular congestion. Lower extremity Doppler study negative for DVT PMH-CHF, pulmonary hypertension, atrial fibrillation not taking anticoagulant due to history of recurrent blood transfusion due to severe anemia, anemia PSH- x3 Allergy- NKDA Personal History/ Social History- denies smoking/alcoholism/drug abuse, lives at home with son. Patient was seen today at bedside. Labs and chart reviewed. Patient reported feeling better today. Patient with pancytopenia, Hemoglobin 7.2, WBC 2.1, platelets 53. Serum creatinine mildly trending up today. 1.44> 1.53. Patient has a negative output balance of 3300 over last 24 hours. Hyperkalemia resolved. Stool occult blood test positive. Patient was seen by Cardiology, recommendation reviewed and appreciated. Objective vital signs Vital Sign Date Time Temp Pulse Resp B/P (MAP) Pulse Ox O2 Delivery O2 Flow Rate FiO2 06/10/25 05:59 108/60 06/10/25 04:50 97.8 75 18 92 97.8 06/09/25 20:53 Nasal Cannula* 2 28 Total Intake and Output 06/09/25 06/09/25 06/10/25 15:00 23:00 07:00 Intake Total 460 ml 1150 ml 125 ml Output Total 2400 ml 2650 ml Balance 460 ml -1250 ml -2525 ml medications Current Medications Medications Dose Ordered Sig/Erum Route Start Time Stop Time Status Last Admin Dose Admin Sildenafil Citrate 20 mg TID@08,14,20 PO 06/08/25 20:00 Hold 06/08/25 20:42 20 MG Pantoprazole Sodium 40 mg DAILY@0600 PO 06/09/25 06:00 06/10/25 05:58 40 MG Carvedilol 6.25 mg Q12HR PO 06/08/25 22:00 Cancel Furosemide 40 mg DAILY IV 06/08/25 16:30 Cancel Furosemide 40 mg BIDD IV 06/08/25 18:00 06/10/25 05:59 40 MG Carvedilol 3.125 mg Q12HR PO 06/08/25 22:00 06/09/25 21:20 3.125 MG Patient Own Medication 5 mg DAILY PO 06/09/25 10:00 Albuterol 2.5 mg Q6H NEB 06/09/25 18:00 06/10/25 00:22 2.5 MG Ipratropium [place] 0.5 mg Q6H NEB 06/09/25 18:00 06/10/25 00:23 0.5 MG Empaglifozin 10 mg DAILY PO 06/09/25 13:00 Hold Examination General examination- , mild respiratory distress HEENT- PEERLA, no acute nasal discharge Cardiovascular- S1-S2 audible, rate and rhythm irregular, no murmur Respiratory- bilateral lung crackles+ Gastrointestinal-nontender, bowel sound+. Nondistended Musculoskeletal-no acute joint swelling or tenderness or redness Lower extremity- bilateral leg edema+++, varicose vein bilaterally present Neurological- cranial nerves intact, no acute dysarthria or dysphagia Psychiatry- denies depression or SI or HI Skin- no acute rash or purpura laboratory and microbiology Laboratory Tests 06/10/25 04:02 Test 06/10/25 04:02 Range/Units Serum Glucose 110 H 74-106 mg/dL Problem List/Assessment/Plan Problem List/Assessment/Plan Assessment/Plan Assessment and plan # acute hypoxic respiratory failure likely due to CHF systolic versus diastolic # pulmonary hypertension # bilateral leg swelling, rule out DVT -continue Lasix 40 mg IV b.i.d. -carvedilol 6.25 mg p.o. b.i.d. -spironolactone 25 mg p.o. daily -sildenafil as prescribed -pending echo 2D report -Doppler study of the lower extremity negative for DVT - cardiology consult reviewed and appreciated -hold Jardiance as patient had vomiting could not tolerate Jardiance - will hold sildenafil for now # atrial fibrillation with controlled ventricular rate -restarted home medication carvedilol -cardiology recommendation reviewed and appreciated basilar-as per Cardiology Avoid antiarrhythmic agent given unknown duration of atrial fibrillation. [id number] VASc score: 4 points, HAS-BLED score: 3 points # pancytopenia # severe anemia under evaluation # leukopenia # thrombocytopenia -ordered another units of blood transfusion today - stool for occult blood test -peripheral blood smear -iron profile-serum iron 30, ferritin 13.2 -ordered IV iron 1 time -plan is to continue ferrous sulfate 325 mg p.o. daily -monitor CBC -continue current management # obstetric sleep apnea -patient is a CPAP tonight at home -ordered BiPAP at night # RUDDY likely due to cardiorenal syndrome -avoid dehydration and nephrotoxic drugs -monitor CMP Goals of care, Code status ; discussed with >15 minutes PUD prophylaxis: Pantoprazole DVT prophylaxis: SCD Plan discussed with Dr. Pizano , nursing staff, Total time spent on patient evaluation, chart review, assessment and plan, discussion discussion >35 minutes Plan discussed with: Patient, Other (RN) Plan discussed with: Other (RN) My Orders My Orders Orders - CHRIS ROQUE RESIDENT Procedure Category Date Status Time Albuterol Medneb PHA 06/09/25 In Process (Ventolin Medneb) 18:00 Ipratropium Medneb PHA 06/09/25 In Process (Atrovent Medneb) 18:00 Empagliflozin PHA 06/09/25 In Process (Jardiance) 13:00 Date of Service: Jun 10, 2025 Billing Provider: MELISA PIZANO MD Common Visit Codes: [id number] INP/OBS CARE(HIGH) CHRIS ROQUE RESIDENT Jun 10, 2025 09:05 MELISA PIZANO MD Jun 15, 2025 23:19
--- NOTE | 2025-06-10 12:50 | DVHSR ---
APPROVED REPORT EXAM: Two-dimensional and M-mode echocardiogram with Doppler and color Doppler. Blood Pressure: 111/44 mmHg INDICATION CHF RISK FACTORS Height: 63, Weight: 320 DIMENSIONS LVDd5.5 (3.8-5.7cm)LA (2D)5.8 (1.9-4.0cm)Aortic Root3.3 (2.0-3.7cm) LVDs3.5 (2.5-4.0cm)LA (MM) (1.9-4.0cm)Aortic Cusp Exc1.7 (1.5-2.0cm) EF (%) 65.0 (55-70%)Rt. Atrium6.3 (1.9-4.0cm)Asc. Aorta cm IVSd1.1 (0.7-1.1cm)RV (D) (1.8-2.4cm) PWd1.7 (0.7-1.1cm) Mitral Valve MitralMitral Stenosis E wave1.38m/sMV Mean GR.mmHg A wavem/sMV Peak GR.84mmHg E/A ratio0.02D MVAcm2 Aortic Valve Aortic ValveAortic Stenosis V11.05m/Jake Mean GR.6mmHg V21.64m/Jake Peak GR.11mmHg LVOT Diameter1.9 (1.8-2.4cm)Doppler AVA1.81cm2 Pulmonic Valve V21.05m/s Tricuspid Valve TR Velocity3.88m/s [id number] Conclusion Atrial fibrillation. Biatrial enlargement. Interventricular septal doming consistent with pulmonary hypertension and dila julieth inferior vena cava. Moderate thickening of the anterior and posterior mitral leaflets. Thickening of the papillary muscl es. The aortic and tricuspid are structurally normal. Left ventricular function appears preserved at 50% with normal RV function. Moderate mitral insufficiency. Severe tricuspid regurgitation. RVSP of 86 mmHg consistent with lawrence re No pericardial effusion masses or vegetations.
--- NOTE | 2025-06-10 13:12 | DVHPN2 ---
Consult Progress Note Date Seen: Jun 10, 2025 Subjective Review of Systems: CVS:Normal, RESPIRATORY:Normal, NEURO:Normal Objective vital signs Vital Sign Date Time Temp Pulse Resp B/P (MAP) Pulse Ox O2 Delivery O2 Flow Rate FiO2 06/10/25 12:02 71 18 100 06/10/25 11:54 Room Air* 0 21 06/10/25 09:39 117/50 06/10/25 09:00 98.1 98.1 Total Intake and Output 06/09/25 06/09/25 06/10/25 15:00 23:00 07:00 Intake Total 460 ml 1150 ml 125 ml Output Total 2400 ml 2650 ml Balance 460 ml -1250 ml -2525 ml medications Current Medications Medications Dose Ordered Sig/Erum Route Start Time Stop Time Status Last Admin Dose Admin Sildenafil Citrate 20 mg TID@08,14,20 PO 06/08/25 20:00 Hold 06/08/25 20:42 Pantoprazole Sodium 40 mg DAILY@0600 PO 06/09/25 06:00 06/10/25 05:58 Carvedilol 6.25 mg Q12HR PO 06/08/25 22:00 Cancel Furosemide 40 mg DAILY IV 06/08/25 16:30 Cancel Furosemide 40 mg BIDD IV 06/08/25 18:00 06/10/25 05:59 Carvedilol 3.125 mg Q12HR PO 06/08/25 22:00 06/10/25 09:39 Patient Own Medication 5 mg DAILY PO 06/09/25 10:00 Albuterol 2.5 mg Q6H NEB 06/09/25 18:00 06/10/25 11:53 Ipratropium [place] 0.5 mg Q6H NEB 06/09/25 18:00 06/10/25 11:53 Empaglifozin 10 mg DAILY PO 06/09/25 13:00 Hold Examination: LUNGS:Normal, CVS:Normal, MSK:Abnormal (RLE edema), NEURO:Normal laboratory and microbiology Laboratory Tests 06/10/25 04:02 Test 06/10/25 04:02 Range/Units Serum Glucose 110 H 74-106 mg/dL Problem List/Assessment/Plan Problem List/Assessment/Plan Atrial fibrillation with controlled rate, unspecified type (off anticoagulation) Pulmonary hypertension, severe degree Obstructive sleep apnea with CPAP use Acute on chronic anemia, +FOBT Thrombocytopenia Acute kidney injury Hypertension Liver cirrhosis Morbid obesity Plan/Recommendation (Dr. Zhang) Transthoracic echocardiogram revealed LVEF 50% with normal RV function. RVSP 86 mmHg consistent with severe pulmonary hypertension. Continue guideline directed medical therapy for CHF, avoid mineralocorticoid given high risk of hyperkalemia. Strict intake and output, daily weights, maintain fluid restriction and low-sodium diet. Continue with beta-adalgisa for rate control. Avoid antiarrhythmic agent given unknown duration of atrial fibrillation. [id number] VASc score: 4 points, HAS-BLED score: 3 points. Unable to initiate anticoagulation given severe anemia, thrombocytopenia, and positive FOBT. Patient is at high risk for a CVA, she can benefit from a left atrial appendage closure as outpatient. DVT/VTE prophylaxis: SCDs. There no further cardiac workup indicated at this time. Kindly call if in need to re-consult. Thank you for allowing us to care for this patient. This medical document was created using an electronic medical record system with voice recognition software and computerized dictation system. Although this document has been carefully reviewed, there might still be some phonetic and typographical errors. Occasional wrong-word or ``sound-alike substitutions may have occurred due to the inherent limitations of voice recognition software. These areas are purely typographical due to imperfections of the software programs and do not reflect any compromise in the patient's medical care. Please read the chart carefully and recognize, using context, where these substitutions have occurred. Plan discussed with: Patient, Other Date of Service: Jun 10, 2025 Billing Provider: RUBEN GIVENS Cardiology Common Codes: [id number] HOSP CARE(High RUBEN GIVENS Jun 10, 2025 13:12
[2025-06-10] MEDS: diphenhdrAMINE HCL 12.5 MG/5 ML UD PO ONE (17:01)
--- NOTE | 2025-06-10 17:06 | DVH ---
ABDOMINAL ULTRASOUND CLINICAL HISTORY: Cirrhosis of liver, looking for ascites TECHNIQUE: Multiple grayscale and color Doppler ultrasound images were obtained of the abdomen. WID: COMPARISON: None FINDINGS: Liver and Biliary System: Heterogeneous echotexture, increased echogenicity and nodular contour mild ly increased in size measuring 19.5 cm. No focal hepatic observations. No intrahepatic bile duct di latation. The common duct measures 0.65 cm at the nati hepatis. The gallbladder is contracted w ith mild wall thickening measuring 3.6 mm there is cholelithiasis. The main portal vein is patent dem onstrating hepatopetal blood flow. Pancreas: Visualized portions are unremarkable. Spleen: is within normal limits. Kidneys: The right kidney is 9.5 cm . No hydronephrosis, increased echogenicity, shadowing stone, o r focal lesion. Additional images were obtained of the pelvis which demonstrates a heterogeneous structure which is e nlarged measuring 10.7 x 10.4 x 12.2 cm. Distended IVC measures 5 cm. Mildly prominent main portal vein measuring 1.7 cm. Images of the quadra nts demonstrate no ascites. IMPRESSION: 1. Cirrhotic morphology of the liver. 2. Cholelithiasis. No biliary ductal dilatation or acute cholecystitis. 3. No ascites. 4. Enlarged heterogeneous structure in the lower abdomen and pelvis not optimally evaluated. This cou ld reflect an adenomatous or myomatous uterus. Consider obtaining contrast-enhanced CT abdomen and pe lvis or pelvic ultrasound for characterization.
[2025-06-10 23:09] LABS: Hemoglobin 7.6 g/dL (12.2-16.2); Mean Corpuscular Volume 80.6 fL (80.0-100.0)
[2025-06-10 23:12] LABS: Hematocrit 23.6 % (36.0-46.0); Mean Corpuscular Hemoglobin 25.9 pg (28.0-32.0); Nucleated Red Blood Cells % 0.1 %
[2025-06-11] VITALS (14 sets, daily range): BP systolic 97–148; BP diastolic 55–67; PULSE 62–83; RESP 16–20; TEMP 98.1–98.5; O2SAT 91–100
[2025-06-11 06:15] LABS: Hemoglobin 8.2 g/dL (12.2-16.2)
[2025-06-11 06:18] LABS: Hematocrit 25.4 % (36.0-46.0); Mean Corpuscular Hemoglobin 26.0 pg (28.0-32.0); Mean Corpuscular Volume 80.8 fL (80.0-100.0); Nucleated Red Blood Cells % 0.1 %
[2025-06-11 06:35] LABS: Albumin 4.1 g/dL (3.2-4.8); Alkaline Phosphatase 58 U/L (46-116); Anion Gap 12 (5-15); BUN/Creatinine Ratio 38.6 (10.0-20.0); Bilirubin, Total 1.0 mg/dL (0.2-1.0); Calcium 9.1 mg/dL (8.7-10.4); Carbon Dioxide 25 mmol/L (20-31); Chloride 103 mmol/L (98-107); Magnesium 2.3 mg/dL (1.6-2.6); Potassium 4.7 mmol/L (3.5-5.1); Sodium 140 mmol/L (136-145); Total Protein 7.3 g/dL (5.7-8.2)
[2025-06-11 06:37] LABS: Alanine Aminotransferase < 9 U/L (7-40); Blood Urea Nitrogen 56 mg/dL (9-23); Glucose 144 mg/dL (74-106)
--- NOTE | 2025-06-11 11:33 | DVH ---
INDICATION: mass TECHNIQUE: Multiple real-time grayscale transabdominal sonographic images along with color and duplex Doppler of the uterus and ovaries were obtained. COMPARISON: None FINDINGS: The uterus is not visualized. Right ovary is not visualized. Left ovary measures 6.9 x 5.0 x 4.7 cm with normal Doppler color flow. Heterogeneous soft-tissue structure in the midline of the pelvis measures 11.4 x 10.1 x 13.4 cm. Examination is limited secondary to patient body habitus. IMPRESSION: Heterogeneous soft-tissue structure in the midline of the pelvis measures 11.4 x 10.1 x 13.4 cm. This is nonspecific and may represent a large uterine fibroid or other mass. Recommend further evaluation with CT or MRI.
--- NOTE | 2025-06-11 15:38 | DVHPNRES ---
Progress Note Date Seen: Jun 11, 2025 Resident Creating Document: FAMILIA PETERS RESIDENT Medical Necessity Reason Pt with a Central, PICC or Fol: No Subjective Review of Systems Patient is 65 years old female with past medical history of CHF, pulmonary hypertension, obstructive sleep apnea, use CPAP at night at home, atrial fibrillation not taking anticoagulant due to history of recurrent blood transfusion due to severe anemia, anemia came with a complaint of shortness of breaths. As per patient she has been having shortness of breaths for last 1-2 months which has been getting worse gradually. Patient also reported bilateral leg swelling that has been going for 3 months and also abdominal distention for the same duration. Patient reported she gets shortness of breaths when she goes from bedroom to the kitchen. Patient denied any chest pain, palpitation, diarrhea, PND or orthopnea. Patient uses CPAP at night at home. Patient reported history of several blood transfusion due to severe anemia, hemoglobin was as low as 4. Patient also mentioned that she saw hemato oncologist but nobody could find out what was the reason for her pancytopenia/severe anemia. Patient also had a colonoscopy and endoscopy last year in July in 2023 at [facility], nothing abdominal noted as per patient. Patient also reported due to severe anemia patient could not be on Eliquis and her cylinder handler and PCP took her off Eliquis. Initial lab workup revealed leukopenia with a WBC 2.2, thrombocytopenia with a platelet 55, [id number] anemia with a hemoglobin 7.9, RDW 17.4, potassium 4.2, serum creatinine 1.58, GFR 36, BUN 57, BNP 182, troponin I 25. Urinalysis glucose 3+, chest x-ray cardiomegaly with vascular congestion. Lower extremity Doppler study negative for DVT PMH-CHF, pulmonary hypertension, atrial fibrillation not taking anticoagulant due to history of recurrent blood transfusion due to severe anemia, anemia PSH- x3 Allergy- NKDA Personal History/ Social History- denies smoking/alcoholism/drug abuse, lives at home with son. 06/10/2025 Patient was seen today at bedside. Labs and chart reviewed. Patient reported feeling better today. Patient with pancytopenia, Hemoglobin 7.2, WBC 2.1, platelets 53. Serum creatinine mildly trending up today. 1.44> 1.53. Patient has a negative output balance of 3300 over last 24 hours. Hyperkalemia resolved. Stool occult blood test positive. Patient was seen by Cardiology, recommendation reviewed and appreciated. 06/11/2025 was seen at the bedside today. Sildenafil was resumed. Ultrasound of the liver and ultrasound of the pelvis results reviewed. MRI of the pelvis has been ordered to further evaluate pelvic mass. Possible discharge tomorrow if reports are normal. Objective vital signs Vital Sign Date Time Temp Pulse Resp B/P (MAP) Pulse Ox O2 Delivery O2 Flow Rate FiO2 06/11/25 13:03 98.3 75 16 148/67 (94) 97 98.3 06/11/25 11:56 Room Air* 0 21 21 Total Intake and Output 06/10/25 06/10/25 06/11/25 15:00 23:00 07:00 Intake Total 556 ml 830 ml 0 ml Output Total 4200 ml Balance 556 ml 830 ml -4200 ml medications Current Medications Medications Dose Ordered Sig/Erum Route Start Time Stop Time Status Last Admin Dose Admin Sildenafil Citrate 20 mg TID@08,14,20 PO 06/08/25 20:00 06/11/25 08:42 20 MG Pantoprazole Sodium 40 mg DAILY@0600 PO 06/09/25 06:00 06/11/25 05:24 40 MG Carvedilol 6.25 mg Q12HR PO 06/08/25 22:00 Cancel Furosemide 40 mg DAILY IV 06/08/25 16:30 Cancel Furosemide 40 mg BIDD IV 06/08/25 18:00 06/11/25 05:24 40 MG Carvedilol 3.125 mg Q12HR PO 06/08/25 22:00 06/11/25 09:39 3.125 MG Patient Own Medication 5 mg DAILY PO 06/09/25 10:00 Albuterol 2.5 mg Q6H NEB 06/09/25 18:00 06/11/25 11:56 2.5 MG Ipratropium [place] 0.5 mg Q6H NEB 06/09/25 18:00 06/11/25 11:56 0.5 MG Empaglifozin 10 mg DAILY PO 06/09/25 13:00 Hold Examination General examination- , mild respiratory distress HEENT- PEERLA, no acute nasal discharge Cardiovascular- S1-S2 audible, rate and rhythm irregular, no murmur Respiratory- bilateral lung crackles+ Gastrointestinal-nontender, bowel sound+. Nondistended Musculoskeletal-no acute joint swelling or tenderness or redness Lower extremity- bilateral leg edema+++, varicose vein bilaterally present Neurological- cranial nerves intact, no acute dysarthria or dysphagia Psychiatry- denies depression or SI or HI Skin- no acute rash or purpura laboratory and microbiology Laboratory Tests 06/11/25 04:45 Test 06/11/25 04:45 Range/Units Serum Glucose 144 H 74-106 mg/dL Labs and/or images reviewed: Labs reviewed by me, Image(s) reviewed by me Problem List/Assessment/Plan Problem List/Assessment/Plan # acute hypoxic respiratory failure likely due to CHF systolic versus diastolic # pulmonary hypertension # bilateral leg swelling, rule out DVT -continue Lasix 40 mg IV b.i.d. -carvedilol 6.25 mg p.o. b.i.d. -spironolactone 25 mg p.o. daily -sildenafil as prescribed -pending echo 2D report -Doppler study of the lower extremity negative for DVT - cardiology consult reviewed and appreciated -hold Jardiance as patient had vomiting could not tolerate Jardiance - will hold sildenafil for now # atrial fibrillation with controlled ventricular rate -restarted home medication carvedilol -cardiology recommendation reviewed and appreciated basilar-as per Cardiology Avoid antiarrhythmic agent given unknown duration of atrial fibrillation. [id number] VASc score: 4 points, HAS-BLED score: 3 points # pancytopenia # severe anemia under evaluation # leukopenia # thrombocytopenia -ordered another units of blood transfusion today - stool for occult blood test -peripheral blood smear -iron profile-serum iron 30, ferritin 13.2 -ordered IV iron 1 time -plan is to continue ferrous sulfate 325 mg p.o. daily -monitor CBC -continue current management # obstetric sleep apnea -patient is a CPAP tonight at home -ordered BiPAP at night # RUDDY likely due to cardiorenal syndrome -avoid dehydration and nephrotoxic drugs -monitor CMP #Pelvic mass -seen on ultrasound liver: Enlarged heterogeneous structure in the lower abdomen and pelvis not optimally evaluated. This could reflect an adenomatous or myomatous uterus. Consider obtaining contrast-enhanced CT abdomen and pelvis or pelvic ultrasound for characterization. -ultrasound pelvis shows- Heterogeneous soft-tissue structure in the midline of the pelvis measures 11.4 x 10.1 x 13.4 cm. This is nonspecific and may represent a large uterine fibroid or other mass. Recommend further evaluation with CT or MRI. -follow up outpatient with obgyn -MRI of the pelvis, pending PUD prophylaxis: Pantoprazole DVT prophylaxis: SCD Plan discussed with Dr. Pizano , nursing staff, Total time spent on patient evaluation, chart review, assessment and plan, discussion discussion >35 minutes Plan discussed with: Patient Dietary Evaluation Review Recommendations by RD: Dietary education by RD Comments: 1) Continue cardiac diet. Encourage optimal PO intake 2) Refer to outpatient RD for weight management 3) Follow-up with cardiology, pulmonology, nephrology, and hematology 4) Continue to monitor I&O, labs, and skin integrity Expected Outcomes/Goals: 1) appetite and labs to improve 2) gradual wt loss 3) f/u in 3-5 days Date of Service: Jun 11, 2025 Billing Provider: MELISA PIZANO MD Common Visit Codes: [id number] INP/OBS CARE(HIGH) FAMILIA PETERS RESIDENT Jun 11, 2025 15:38 MELISA PIZANO MD Jun 15, 2025 23:37
[2025-06-12] VITALS (10 sets, daily range): BP systolic 100–169; BP diastolic 48–97; PULSE 72–110; RESP 16–21; TEMP 37.1; O2SAT 91–99
[2025-06-12 06:30] LABS: Hemoglobin 8.3 g/dL (12.2-16.2)
[2025-06-12 06:40] LABS: Anion Gap 9 (5-15); Carbon Dioxide 29 mmol/L (20-31); Chloride 104 mmol/L (98-107); Hematocrit 25.9 % (36.0-46.0); Mean Corpuscular Hemoglobin 26.0 pg (28.0-32.0); Mean Corpuscular Volume 81.4 fL (80.0-100.0); Nucleated Red Blood Cells % 0.1 %; Potassium 4.1 mmol/L (3.5-5.1); Sodium 142 mmol/L (136-145)
[2025-06-12 06:42] LABS: Calcium 9.1 mg/dL (8.7-10.4)
[2025-06-12 06:46] LABS: BUN/Creatinine Ratio 32.9 (10.0-20.0)
[2025-06-12 07:03] LABS: Blood Urea Nitrogen 57 mg/dL (9-23); Glucose 152 mg/dL (74-106)
--- NOTE | 2025-06-12 08:40 | DVH ---
EXAM: MRI PELVIS WO CONTRAST HISTORY: Week ultrasound shows mass COMPARISON: US PELVIC on DOS: 06/11/25 TECHNIQUE: Multiplanar, multisequence MRI was performed. FINDINGS: There is a 12 x 11 cm pedunculated fibroid arising from the uterine fundus extending superiorly into the lower half of the abdomen. Other smaller intramural fibroids are present under a cm in size. Endometrial thickness normal. No adnexal masses. No enlarged lymph nodes Abreu catheter in the urinary bladder. No free fluid. Large umbilical hernia containing fat. IMPRESSION: 1. Lower midline abdominal masses and pedunculated uterine fibroid off the uterine fundus 2. Incidental note made of a large umbilical hernia containing fat
--- NOTE | 2025-06-12 14:58 | DVHDSRES ---
Discharge Summary Date of Admission Resident Creating Document: FAMILIA PETERS RESIDENT Jun 08, 2025 at 15:38 Date of Discharge: Jun 12, 2025 Admitting Diagnosis Acute hypoxic respiratory failure Bilateral leg swelling Labs/Diagnostic Data: Laboratory Results Test 06/12/25 05:44 06/11/25 04:45 06/10/25 04:02 06/10/25 01:25 White Blood Count 2.0 10^3/uL (4.4-10.8) Red Blood Count 3.19 10^6/uL (4.0-5.20) Hemoglobin 8.3 g/dL (12.2-16.2) Hematocrit 25.9 % (36.0-46.0) Mean Corpuscular Volume 81.4 fL (80.0-100.0) Mean Corpuscular Hemoglobin 26.0 pg (28.0-32.0) Mean Corpuscular Hemoglobin Concent 31.9 g/dL (32.0-36.0) Red Cell Distribution Width 17.4 % (11.8-14.3) Platelet Count 58 10^3/uL (140-450) Mean Platelet Volume 8.2 fL (6.9-10.8) Neutrophils (%) (Auto) 60.9 % (37.0-80.0) Lymphocytes (%) (Auto) 18.7 % (10.0-50.0) Monocytes (%) (Auto) 15.6 % (0.0-12.0) Eosinophils (%) (Auto) 4.2 % (0.0-7.0) Basophils (%) (Auto) 0.6 % (0.0-2.0) Neutrophils # (Auto) 1.2 10 ^3/uL (1.6-8.6) Lymphocytes # (Auto) 0.4 10 ^3/uL (0.4-5.4) Monocytes # (Auto) 0.3 10 ^3/uL (0-1.3) Eosinophils # (Auto) 0.1 10 ^3/uL (0-0.8) Basophils # (Auto) 0 10 ^3/uL (0-0.2) Nucleated Red Blood Cells 0.1 % Sodium Level 142 mmol/L (136-145) Potassium Level 4.1 mmol/L (3.5-5.1) Chloride Level 104 mmol/L (98-107) Carbon Dioxide Level 29 mmol/L (20-31) Anion Gap 9 (5-15) Blood Urea Nitrogen 57 mg/dL (9-23) Creatinine 1.73 mg/dL (0.550-1.02) Glomerular Filtration Rate Calc 32 mL/min (>90) BUN/Creatinine Ratio 32.9 (10.0-20.0) Serum Glucose 152 mg/dL (74-106) Calcium Level 9.1 mg/dL (8.7-10.4) Magnesium Level 2.3 mg/dL (1.6-2.6) Total Bilirubin 1.0 mg/dL (0.2-1.0) Aspartate Amino Transferase (AST) 15 U/L (13-40) Alanine Aminotransferase (ALT) < 9 U/L (7-40) Alkaline Phosphatase 58 U/L (46-116) Total Protein 7.3 g/dL (5.7-8.2) Albumin 4.1 g/dL (3.2-4.8) Differential Total Cells Counted 100.0 (100) Neutrophils % (Manual) 65 (37.0-80.0) Band Neutrophils % (Manual) 0 Lymphocytes % (Manual) 16 (10.0-50.0) Monocytes % (Manual) 16 (0-12) Eosinophils % (Manual) 3 (0-7) Basophils % (Manual) 0 (0.0-2.0) Metamyelocytes % (manual) 0 Myelocytes % (Manual) 0 Promyelocytes % (Manual) 0 Blast Cells % (Manual) 0 Reactive Lymphocytes 0 Platelet Estimate Decreased Ovalocytes Few Stool Occult Blood Positive (Negative) Stool Occult Blood Sample #3 (Negative) Test 06/08/25 17:51 06/08/25 16:30 06/08/25 14:17 06/08/25 13:24 Lactic Acid Level 0.6 mmol/L (0.4-2.0) Troponin I High Sensitivity 23 ng/L (</=34) Urine Color Light-yellow (Yellow) Urine Clarity Clear (Clear) Urine pH 5.5 (5.0-9.0) Urine Specific [place] 1.013 (1.001-1.035) Urine Protein Trace (Negative) Urine Ketones Negative (Negative) Urine Blood Negative /uL (Negative) Urine Nitrite Negative (Negative) Urine Bilirubin Negative (Negative) Urine Urobilinogen Normal mg/dL (Negative) Urine Leukocyte Esterase Trace /uL (Negative) Urine RBC None seen /hpf (0 - 4) Urine Microscopic WBC 8 /HPF (0-5) Urine Squamous Epithelial Cells Few /hpf (<5) Urine Bacteria None seen /hpf (None Seen) Urine Glucose 3+ mg/dL (Normal) Urine Opiates Screen Neg (NEGATIVE) Urine Fentanyl Screen Neg (NEGATIVE) Urine Barbiturates Screen Neg (NEGATIVE) Urine Phencyclidine Screen Neg (NEGATIVE) Urine Amphetamines Screen Neg (NEGATIVE) Urine Benzodiazepines Screen Neg (NEGATIVE) Urine Cocaine Screen Neg (NEGATIVE) Urine Cannabinoids Screen Neg (NEGATIVE) D-Dimer, Quantitative 1.69 mg/L FEU (0.0-0.49) Hemoglobin A1c < 3.8 % A1C (<5.7) Iron Level 30 ug/dL (50-170) Total Iron Binding Capacity 440 ug/dL (250-425) Percent Iron Saturation 6.8 % (15-50) Ferritin 13.2 ng/mL (10-291) B-Type Natriuretic Peptide 182.49 pg/mL (0-100) Triglycerides Level 80 mg/dL (< 150) Cholesterol Level 93 mg/dL (< 200) LDL Cholesterol 51 mg/dL (< 100) HDL Cholesterol 33 mg/dL (40-59) Vitamin B12 Level 1119 pg/mL (211-911) Vitamin D 25-Hydroxy 59.1 ng/mL (30.0-100) Folic Acid 10.69 ng/mL (>5.38) Thyroid Stimulating Hormone (TSH) 2.81 uIU/mL (0.55-4.78) Other Laboratory Tests 06/12/25 05:44 Brief Hx & Hospital Course: Patient is 65 years old female with past medical history of CHF, pulmonary hypertension, obstructive sleep apnea, use CPAP at night at home, atrial fibrillation not taking anticoagulant due to history of recurrent blood transfusion due to severe anemia, anemia came with a complaint of shortness of breaths. As per patient she has been having shortness of breaths for last 1-2 months which has been getting worse gradually. Patient also reported bilateral leg swelling that has been going for 3 months and also abdominal distention for the same duration. Patient reported she gets shortness of breaths when she goes from bedroom to the kitchen. Patient denied any chest pain, palpitation, diarrhea, PND or orthopnea. Patient uses CPAP at night at home. Patient reported history of several blood transfusion due to severe anemia, hemoglobin was as low as 4. Patient also mentioned that she saw hemato oncologist but nobody could find out what was the reason for her pancytopenia/severe anemia. Patient also had a colonoscopy and endoscopy last year in July in 2023 at [facility], nothing abdominal noted as per patient. Patient also reported due to severe anemia patient could not be on Eliquis and her sheet rock sander and PCP took her off Eliquis. Initial lab workup revealed leukopenia with a WBC 2.2, thrombocytopenia with a platelet 55, [id number] anemia with a hemoglobin 7.9, RDW 17.4, potassium 4.2, serum creatinine 1.58, GFR 36, BUN 57, BNP 182, troponin I 25. Urinalysis glucose 3+, chest x-ray cardiomegaly with vascular congestion. Lower extremity Doppler study negative for DVT. Heterogeneous soft-tissue structure in the midline of the pelvis measures 11.4 x 10.1 x 13.4 cm. This is nonspecific and may represent a large uterine fibroid or other mass. MRI of the abdomen- Lower midline abdominal masses and pedunculated uterine fibroid off the uterine fundus. Incidental note made of a large umbilical hernia containing fat. Single organ ultrasound- Cirrhotic morphology of the liver. Cholelithiasis. No biliary ductal dilatation or acute cholecystitis. No ascites. Enlarged heterogeneous structure in the lower abdomen and pelvis not optimally evaluated. This could reflect an adenomatous or myomatous uterus. Patient is treated conservatively with IV Lasix. Patient also had 2 units of blood transfusion due to severe anemia from likely cirrhosis of liver with pancytopenia. Stool occult blood test was positive. Patient has cardiology consult, started patient on Jardiance but patient could not tolerated. Ultrasound of the abdomen revealed fibroid uterus. patient was advised to follow up with the turning machine set up operator for further evaluation and care of fibroid uterus. Patient's symptoms improved with conservative management. Patient patient was advised to follow up with the primary care physician and with sheet rock sander in 1-2 weeks for further evaluation and care. Patient also advised to follow up with the supervisor front in 1-2 weeks for further evaluation and care of cirrhosis of liver with pancytopenia. Patient was also advised to follow up with the discharge clinic on 06/17/2025. Patient's meds were sent to the pharmacy electronically. Patient was hemodynamically stable on discharge. Consults/Reason for consult Patient Name: RAIZA TUCKER Acct: [id number] Room: [address] [place] [address] /Bed: A Attending Physician: CHRIS ROQUE RESIDENT Loc: [facility] Unit: [id number] CONSULTATION REPORT . ................................................................................ ............................................................................... Date Seen: Jun 08, 2025 Referring Physician MD Breanne resident Reason for Consultation Shortness of breath, bilateral lower extremity edema History of Present Illness This is a 65-year-old female patient who presents to the emergency room with chief complaint of worsening shortness of breath and generalized edema for over one month. She now comes to the emergency room for further evaluation of symptoms. Cardiology has been consulted at this time. Initial twelve electrocardiogram reveals atrial fibrillation with artifact in multiple leads (poor quality ECG). Patient remains in atrial fibrillation with controlled rate on satellite project site monitor at time of assessment. The patient denies any chest pain. Initial troponin level of 25ng/L. Significant past medical history includes congestive heart failure, atrial fibrillation (off anticoagulation), hypertension, pulmonary hypertension, obstructive sleep apnea with CPAP use at night, liver cirrhosis, chronic anemia, and obesity. The patient reports that she follows up with a sheet rock sander at [facility]. She reports undergoing a coronary angiogram approximately 2-3 years ago without any catheter based intervention. She also reports that she was started on warfarin therapy for her atrial fibrillation but developed severe anemia requiring packed red blood cell transfusions and was subsequently taken off of warfarin therapy. Past Medical History Past medical history reviewed. No other significant than mentioned above. Past Surgical History Family History Family history reviewed. Social History Denies the use of tobacco, alcohol or illicit drugs. Allergies: Coded Allergies: NO KNOWN ALLERGIES (Unverified , 06/08/25) Home Meds Home medications reviewed. Current Medications Current Medications Medications (Trade) Dose Ordered Sig/Erum Route PRN Reason Start Time Stop Time Status Last Admin Furosemide (Lasix Injection) 40 mg BIDD IV 06/08/25 16:15 06/08/25 16:21 DC Sildenafil Citrate (Revatio) 20 mg TID@08,14,20 PO 06/08/25 20:00 UNV Spironolactone (Aldactone) 25 mg DAILY PO 06/09/25 10:00 UNV Pantoprazole Sodium (Protonix Tablet) 40 mg DAILY@0600 PO 06/09/25 06:00 UNV Carvedilol (Coreg Tablet) 6.25 mg Q12HR PO 06/08/25 22:00 UNV Furosemide (Lasix Injection) 40 mg DAILY IV 06/08/25 16:30 UNV Review of Systems Constitutional: No symptom reported Ears, Nose, & Throat: No symptom reported Eyes: No symptom reported Neurological: No symptoms reported Pulmonary/Respiratory: Shortness of breath Cardiovascular: Bilateral lower extremity edema Gastrointestinal: No symptom reported Genitourinary: No symptom reported Musculoskeletal: No symptom reported Skin: No symptom reported Psychiatric: No symptom reported Endocrine: No symptom reported Hematologic/Lymphatic: No symptom reported Vital Signs Vital Signs Date Time Temp Pulse Resp B/P (MAP) Pulse Ox O2 Delivery O2 Flow Rate FiO2 06/08/25 15:30 99 15 115/58 (77) 95 06/08/25 13:39 Nasal Cannula* 2 28 06/08/25 13:20 98.0 98.0 Physical Exam General Appearance: Cooperative. Morbidly obese Pulmonary/Respiratory: Diminished bilateral bases Cardiovascular/Chest: Irregularly irregular rate and rhythm. Peripheral Pulses: 2+ Radial (R). 2+ Radial (L). 2+ Pedal (R). 2+ Pedal (L) Abdominal Exam: Normal bowel sounds. Ankle Exam: 2+ pitting edema Lower extremities: 2+ pitting edema Neuro/Mental Status: A/OX4, coherent. Thoughts/Psych: Normal thought pattern. Appropriate mood and affect. Good judgment and insight. Appearance: No acute distress. Skin Exam: Normal inspection. Normal color. Warm and dry. BLE varicose veins noted. Labs/Diagnostic Data Labs Test 06/08/25 14:41 06/08/25 14:17 06/08/25 13:24 Range/Units Troponin I High Sensitivity 21 </=34 ng/L Urine Color Light-yellow Yellow Urine Clarity Clear Clear Urine pH 5.5 5.0-9.0 Urine Specific [place] 1.013 1.001-1.035 Urine Protein Trace H Negative Urine Ketones Negative Negative Urine Blood Negative Negative /uL Urine Nitrite Negative Negative Urine Bilirubin Negative Negative Urine Urobilinogen Normal Negative mg/dL Urine Leukocyte Esterase Trace Negative /uL Urine RBC None seen 0 - 4 /hpf Urine Microscopic WBC 8 H 0-5 /HPF Urine Squamous Epithelial Cells Few <5 /hpf Urine Bacteria None seen None Seen /hpf Urine Glucose 3+ H Normal mg/dL White Blood Count 2.2 L 4.4-10.8 10^3/uL Red Blood Count 3.18 L 4.0-5.20 10^6/uL Hemoglobin 7.9 L 12.2-16.2 g/dL Hematocrit 25.6 L 36.0-46.0 % Mean Corpuscular Volume 80.5 80.0-100.0 fL Mean Corpuscular Hemoglobin 24.7 L 28.0-32.0 pg Mean Corpuscular Hemoglobin Concent 30.7 L 32.0-36.0 g/dL Red Cell Distribution Width 17.4 H 11.8-14.3 % Platelet Count 55 L 140-450 10^3/uL Mean Platelet Volume 7.8 6.9-10.8 fL Neutrophils (%) (Auto) 65.5 37.0-80.0 % Lymphocytes (%) (Auto) 14.3 10.0-50.0 % Monocytes (%) (Auto) 17.2 H 0.0-12.0 % Eosinophils (%) (Auto) 2.7 0.0-7.0 % Basophils (%) (Auto) 0.3 0.0-2.0 % Neutrophils # (Auto) 1.5 L 1.6-8.6 10 ^3/uL Lymphocytes # (Auto) 0.3 L 0.4-5.4 10 ^3/uL Monocytes # (Auto) 0.4 0-1.3 10 ^3/uL Eosinophils # (Auto) 0.1 0-0.8 10 ^3/uL Basophils # (Auto) 0 0-0.2 10 ^3/uL Nucleated Red Blood Cells 0.0 % Sodium Level 140 136-145 mmol/L Potassium Level 5.2 H 3.5-5.1 mmol/L Chloride Level 107 98-107 mmol/L Carbon Dioxide Level 24 20-31 mmol/L Anion Gap 9 5-15 Blood Urea Nitrogen 57 H 9-23 mg/dL Creatinine 1.58 H 0.550-1.02 mg/dL Glomerular Filtration Rate Calc 36 >90 mL/min BUN/Creatinine Ratio 36.1 H 10.0-20.0 Serum Glucose 120 H 74-106 mg/dL Calcium Level 8.9 8.7-10.4 mg/dL Total Bilirubin 0.9 0.2-1.0 mg/dL Aspartate Amino Transferase (AST) 14 13-40 U/L Alanine Aminotransferase (ALT) < 9 7-40 U/L Alkaline Phosphatase 66 46-116 U/L B-Type Natriuretic Peptide 182.49 0-100 pg/mL Total Protein 7.6 5.7-8.2 g/dL Albumin 4.3 3.2-4.8 g/dL Assessment Rule out structural heart disease Atrial fibrillation with controlled rate, unspecified type (off anticoagulation) Hypertension Pulmonary hypertension, severe degree Obstructive sleep apnea with CPAP use Acute on chronic anemia Thrombocytopenia Acute kidney injury Liver cirrhosis Morbid obesity Plan/Recommendation We will continue with the following plan/recommendations (Dr. Richey): We will proceed with obtaining a transthoracic echocardiogram to evaluate cardiac function. Continue patient's home guideline directed medical therapy for CHF. We will recommend to hold spironolactone at this given borderline hyperkalemia and acute kidney injury. Strict intake and output, daily weights, maintain fluid restriction and low-sodium diet. [id number] VASc score: 4 points, HAS-BLED score: 3 points. Continue with beta-adalgisa for rate control. Avoid antiarrhythmic agent given unknown duration of atrial fibrillation. Unable to initiate anticoagulation at this time given anemia and thrombocytopenia. Patient reports previously being prescribed warfarin which caused active bleeding and required multiple red blood cell transfusions. Initiate SCDs while inpatient if lower extremity ultrasound negative for DVTs. Continue with close cardiac surveillance. Thank you for allowing us to care for this patient. Please call with any questions or concerns. Critical care time spent: 44 minutes This medical document was created using an electronic medical record system with voice recognition software and computerized dictation system. Although this document has been carefully reviewed, there might still be some phonetic and typographical errors. Occasional wrong-word or ``sound-alike substitutions may have occurred due to the inherent limitations of voice recognition software. These areas are purely typographical due to imperfections of the software programs and do not reflect any compromise in the patient's medical care. Please read the chart carefully and recognize, using context, where these substitutions have occurred. Plan discussed with: Patient NYHA 2 Physical activity limitations: NA Date of Service: Jun 08, 2025 Billing Provider: VIKKI BABCOCK Cardiology Common Codes: 21752-HNSSRTL INP/OBS CARE (High) Cardiology Consultation Codes: 43028-TWHPTAIJW CONSULT <45MIN VIKKI BABCOCK Jun 08, 2025 17:00 DICTATED BY:VIKKI BABCOCK DICTATED DATE/TIME:06/08/25 1700 ELECTRONICALLY SIGNED BY:VIKKI BABCOCK 06/08/25 1700 ELECTRONICALLY CO-SIGNED BY: [place] [id number] Ph: [phone] DIAGNOSTIC IMAGING Diagnostic Imaging Report : [id number] Signed PATIENT: RAIZA TUCKER ACCT: [id number] UNIT: [id number] : 1960 LOC: [facility] AGE / SEX: 65 / F ADM STATUS: ADM IN SERVICE 1538 ORDERING PHYSICIAN: CHRIS ROQUE RESIDENT PROCEDURE(s): ECIDC - ECHO 2D MODE CARDIAC DOP REASON: CHF ORDER NUMBER(s): [id number], ACCESSION NUMBER(s): [id number] APPROVED REPORT EXAM: Two-dimensional and M-mode echocardiogram with Doppler and color Doppler. Blood Pressure: 111/44 mmHg INDICATION CHF RISK FACTORS Height: 63, Weight: 320 DIMENSIONS LVDd 5.5 (3.8-5.7cm) LA (2D) 5.8 (1.9-4.0cm) Aortic Root 3.3 (2.0- 3.7cm) LVDs 3.5 (2.5-4.0cm) LA (MM) (1.9-4.0cm) Aortic Cusp Exc 1.7 (1.5- 2.0cm) EF (%) 65.0 (55-70%) Rt. Atrium 6.3 (1.9-4.0cm) Asc. Aorta cm IVSd 1.1 (0.7-1.1cm) RV (D) (1.8-2.4cm) PWd 1.7 (0.7-1.1cm) Mitral Valve Mitral Mitral Stenosis E wave 1.38m/s MV Mean GR. mmHg A wave m/s MV Peak GR. 84mmHg E/A ratio 0.0 2D MVA cm2 Aortic Valve Aortic Valve Aortic Stenosis V1 1.05m/s AO Mean GR. 6mmHg V2 1.64m/s AO Peak GR. 11mmHg LVOT Diameter 1.9 (1.8-2.4cm) Doppler ANDI 1.81cm2 Pulmonic Valve V2 1.05m/s Tricuspid Valve TR Velocity 3.88m/s RVSP 86mmHg Conclusion Atrial fibrillation. Biatrial enlargement. Interventricular septal doming consistent with pulmonary hypertension and dilated inferior vena cava. Moderate thickening of the anterior and posterior mitral leaflets. Thickening of the papillary muscles. The aortic and tricuspid are structurally normal. Left ventricular function appears preserved at 50% with normal RV function. Moderate mitral insufficiency. Severe tricuspid regurgitation. RVSP of 86 mmHg consistent with severe No pericardial effusion masses or vegetations. SIGNED BY: GEORGE RICHEY Sr., MD SIGNED DATE/TIME: 06/10/25 1250 CC: Operations or Procedures [place] [id number] Ph: [phone] DIAGNOSTIC IMAGING Diagnostic Imaging Report : [id number] Signed PATIENT: RAIZA TUCKER ACCT: [id number] UNIT: [id number] : 1960 LOC: [facility] AGE / SEX: 65 / F ADM STATUS: ADM IN SERVICE 1538 ORDERING PHYSICIAN: FAMILIA PETERS RESIDENT PROCEDURE(s): MPELV - PELVIS WO CONTRAST REASON: Week ultrasound shows mass ORDER NUMBER(s): [id number], ACCESSION NUMBER(s): [id number] EXAM: MRI PELVIS WO CONTRAST HISTORY: Week ultrasound shows mass COMPARISON: US PELVIC on DOS: 06/11/25 TECHNIQUE: Multiplanar, multisequence MRI was performed. FINDINGS: There is a 12 x 11 cm pedunculated fibroid arising from the uterine fundus extending superiorly into the lower half of the abdomen. Other smaller intramural fibroids are present under a cm in size. Endometrial thickness normal. No adnexal masses. No enlarged lymph nodes Abreu catheter in the urinary bladder. No free fluid. Large umbilical hernia containing fat. IMPRESSION: 1. Lower midline abdominal masses and pedunculated uterine fibroid off the uterine fundus 2. Incidental note made of a large umbilical hernia containing fat ATED BY: MATIAS KELLOGG MD DICTATED DATE/TIME: 06/12/25837 SIGNED BY: MATIAS KELLOGG MD SIGNED DATE/TIME: 06/12/25837 CC: [place] [id number] Ph: [phone] DIAGNOSTIC IMAGING Diagnostic Imaging Report : [id number] Signed PATIENT: RAIZA TUCKER ACCT: [id number] UNIT: [id number] : 1960 LOC: [facility] ROOM / BED: [address] [place] [address] A AGE / SEX: 65 / F ADM STATUS: ADM IN SERVICE 1538 ORDERING PHYSICIAN: FAMILIA PETERS RESIDENT PROCEDURE(s): MPELV - PELVIS WO CONTRAST REASON: Week ultrasound shows mass ORDER NUMBER(s): [id number], ACCESSION NUMBER(s): [id number] EXAM: MRI PELVIS WO CONTRAST HISTORY: Week ultrasound shows mass COMPARISON: US PELVIC on DOS: 06/11/25 TECHNIQUE: Multiplanar, multisequence MRI was performed. FINDINGS: There is a 12 x 11 cm pedunculated fibroid arising from the uterine fundus extending superiorly into the lower half of the abdomen. Other smaller intramural fibroids are present under a cm in size. Endometrial thickness normal. No adnexal masses. No enlarged lymph nodes Abreu catheter in the urinary bladder. No free fluid. Large umbilical hernia containing fat. IMPRESSION: 1. Lower midline abdominal masses and pedunculated uterine fibroid off the uterine fundus 2. Incidental note made of a large umbilical hernia containing fat ATED BY: MATIAS KELLOGG MD DICTATED DATE/TIME: 06/12/25837 SIGNED BY: MATIAS KELLOGG MD SIGNED DATE/TIME: 06/12/25837 CC: [place] [address] Ph: [phone] DIAGNOSTIC IMAGING Diagnostic Imaging Report : [id number] Signed PATIENT: RAIZA TUCKER ACCT: [id number] UNIT: [id number] : 1960 LOC: [facility]GE / SEX: 65 / F ADM STATUS: ADM IN SERVICE 1449 ORDERING PHYSICIAN: CHRIS ROQUE RESIDENT PROCEDURE(s): ABDL - ABDOMEN LIMITED REASON: Cirrhosis of liver, looking for ascites ORDER NUMBER(s): [id number], ACCESSION NUMBER(s): [id number] ABDOMINAL ULTRASOUND CLINICAL HISTORY: Cirrhosis of liver, looking for ascites TECHNIQUE: Multiple grayscale and color Doppler ultrasound images were obtained of the abdomen. WID: COMPARISON: None FINDINGS: Liver and Biliary System: Heterogeneous echotexture, increased echogenicity and nodular contour mildly increased in size measuring 19.5 cm. No focal hepatic observations. No intrahepatic bile duct dilatation. The common duct measures 0.65 cm at the nati hepatis. The gallbladder is contracted with mild wall thickening measuring 3.6 mm there is cholelithiasis. The main portal vein is patent demonstrating hepatopetal blood flow. Pancreas: Visualized portions are unremarkable. Spleen: is within normal limits. Kidneys: The right kidney is 9.5 cm . No hydronephrosis, increased echogenicity, shadowing stone, or focal lesion. Additional images were obtained of the pelvis which demonstrates a heterogeneous structure which is enlarged measuring 10.7 x 10.4 x 12.2 cm. Distended IVC measures 5 cm. Mildly prominent main portal vein measuring 1.7 cm. Images of the quadrants demonstrate no ascites. IMPRESSION: 1. Cirrhotic morphology of the liver. 2. Cholelithiasis. No biliary ductal dilatation or acute cholecystitis. 3. No ascites. 4. Enlarged heterogeneous structure in the lower abdomen and pelvis not optimally evaluated. This could reflect an adenomatous or myomatous uterus. Consider obtaining contrast-enhanced CT abdomen and pelvis or pelvic ultrasound for characterization. ATED BY: BROOKLYN SHEA MD DICTATED DATE/TIME: 06/10/251703 SIGNED BY: BROOKLYN SHEA MD SIGNED DATE/TIME: 06/10/251703 CC: [place] [id number] Ph: [phone] DIAGNOSTIC IMAGING Diagnostic Imaging Report : [id number] Signed PATIENT: RAIZA TUCKER ACCT: [id number] UNIT: [id number] : 1960 LOC: [facility] ROOM / BED: [address] [place] [address] AGE / SEX: 65 / F ADM STATUS: ADM IN SERVICE 13 ORDERING PHYSICIAN: CHRIS ROQUE RESIDENT PROCEDURE(s): BLDVT - BiLat Lower DVT REASON: LEG SWELLING ORDER NUMBER(s): [id number], ACCESSION NUMBER(s): [id number] BILATERAL LOWER EXTREMITY VENOUS DUPLEX REASON FOR EXAMINATION: Bilateral lower extremity pain and edema. COMPARISON: None TECHNIQUE: Using real-time freeze-frame technique with a high-frequency transducer, multiple longitudinal and transverse sections were obtained. Simultaneous color flow and spectral Doppler imaging was performed. FINDINGS: There is good visualization of the deep venous system with no intraluminal filling defects identified. Normal venous compressibility is seen and there is flow augmentation. Color flow Doppler imaging is unremarkable. There is a complex casper's cyst in the left popliteal fossa measuring 4.1 x 3.2 x 6.3 cm. IMPRESSION: NO EVIDENCE OF DEEP VENOUS THROMBOSIS. ATED BY: MARGARITA DONALD MD DICTATED DATE/TIME: 06/08/251656 SIGNED BY: MARGARITA DONALD MD SIGNED DATE/TIME: 06/08/251656 CC: [place] [id number] Ph: [phone] DIAGNOSTIC IMAGING Diagnostic Imaging Report : [id number] Signed PATIENT: RAIZA TUCKER ACCT: [id number] UNIT: [id number] : 1960 LOC: ER ROOM / BED: / AGE / SEX: 65 / F ADM STATUS: REG ER SERVICE 1259 ORDERING PHYSICIAN: NADEGE LICEA DO PROCEDURE(s): CXRP - CHEST PORTABLE REASON: sob ORDER NUMBER(s): [id number], ACCESSION NUMBER(s): [id number] EXAM: XY CHEST PORTABLE Indication: sob Technique: Single frontal view of the chest was obtained Comparison: None FINDINGS: Lines and Tubes: None Lungs: No focal consolidation. Pulmonary vascular congestion. Pleura: No effusion. No pneumothorax. Cardiomediastinal contours: Cardiomegaly. Bones: No acute osseous abnormality. IMPRESSION: Cardiomegaly with pulmonary vascular congestion. ATED BY: ODESSA MESA MD DICTATED DATE/TIME: 06/08/25 1342 SIGNED BY: ODESSA MESA MD SIGNED DATE/TIME: 06/08/25 1342 CC: Condition at Discharge: Stable Final Diagnosis/Problems List # acute hypoxic respiratory failure likely due to CHF systolic versus diastolic # pulmonary hypertension # bilateral leg swelling, ruleD out DVT # atrial fibrillation with controlled ventricular rate # pancytopenia # severe anemia # leukopenia # thrombocytopenia # obstetric sleep apnea # RUDDY likely due to cardiorenal syndrome # fibroid uterus # cirrhosis of liver # cholelithiasis, no acute cholecystitis Discharge Disposition: Home Discharge Instruct/Medications Diet: Consistent carbohydrate, Cardiac 2g Na,low cholest Follow Up/Referral: Please follow up with the primary care physician in 1 week Please follow up with the discharge clinic on 06/17/[address] Murphy Please follow up with the sheet rock sander in 1-2 weeks for further evaluation and care Please follow up with the supervisor front for cirrhosis of liver with pancytopenia also fecal occult blood test positive. Please follow up with the turning machine set up operator and social media content manager for fibroid uterus for further evaluation and care Avoid nephrotoxic drugs, avoid NSAIDs Medications: Lasix 40 mg p.o. b.i.d. Please resume home medication sildenafil and ambrisentan Carvedilol 3.125 mg p.o. q.12 hours Pantoprazole 20 mg p.o. daily Ferrous sulfate 325 mg p.o. daily Albuterol inhaler PRN Scheduled Ambrisentan (Ambrisentan), 5 MG PO DAILY, (Reported) Carvedilol (Carvedilol), 1 TAB PO DAILY, (Reported) Dapagliflozin Propanediol (Farxiga), 10 MG PO DAILY, (Reported) Ferrous Sulfate (Ferrous Sulfate), 1 TAB PO DAILY Furosemide (Furosemide), 40 MG PO DAILY, (Reported) Furosemide (Lasix), 40 MG PO BID Latanoprost-Timolol Maleate (Timolol/Latanoprost 0.005-0.5 %), 1 TAHMINA EACHEYE HS, (Reported) Sildenafil Citrate (Sildenafil Citrate), 1 TAB PO TID, (Reported) Spironolactone (Spironolactone), 1 TAB PO DAILY, (Reported) Timolol Maleate (Ophth) (Timolol Maleate), 1 DROP EACHEYE QAM, (Reported) Scheduled PRN Albuterol Sulfate (Albuterol Sulfate Hfa), 108 MCG IN Q6HP PRN Discharge Statement: "Patient was advised to return to the ER or call 911 if any headaches, dizziness, shortness of breath, chest pain, abdominal pain, bleeding, fevers, or worsening of medical condition. Patient was counseled about treatment plan, medications, possible side effects, patientverbalized understanding. All questions were answered to the best of my ability. This discharge took greater then 30 minutes in planning, reviewing documentation, counseling the patient, and discussing with other team members." ASSESSMENT ASSESSMENT Assessment Date of Service: Jun 12, 2025 Billing Provider: MELISA MURPHY MD Common Visit Codes: 42185-MRN/OBS DISCH DAY >30min CHRIS ROQUE Jun 12, 2025 14:58 MELISA MURPHY MD Jun 15, 2025 23:47
[2025-06-12] MEDS ORDERED: ALBU108A5 IN (15:40)
[2025-06-12] MEDS ORDERED: FURO1TAB31 PO (15:40)
[2025-06-12] MEDS ORDERED: FER325T PO (16:40)
== END 2025-06-12 16:55 | disposition home or self-care (01) | DRG 291 ==
LOC: EDBD 12:53 → ER 12:53 → OVERFLOW 15:38 → TELE-WESTW 17:09
PROVIDERS: ADMIT Student in an Organized Health Care Education/Training Program; ATTEND Student in an Organized Health Care Education/Training Program
PROC: 5A09357 Assistance with Respiratory Ventilation, Less than 24 Consecutive Hours, Continuous Positive Airway Pressure (ICD-10-PCS; 2025-06-08)
PROC: 30233N1 Transfusion of Nonautologous Red Blood Cells into Peripheral Vein, Percutaneous Approach (ICD-10-PCS; principal; 2025-06-09)
PROC: 5A09357 Assistance with Respiratory Ventilation, Less than 24 Consecutive Hours, Continuous Positive Airway Pressure (ICD-10-PCS; 2025-06-09)
PROC: 5A09357 Assistance with Respiratory Ventilation, Less than 24 Consecutive Hours, Continuous Positive Airway Pressure (ICD-10-PCS; 2025-06-11)
DX: I13.0 Hypertensive heart and chronic kidney disease with heart failure and stage 1 through stage 4 chronic kidney disease, or unspecified chronic kidney disease (principal); I50.43 Acute on chronic combined systolic (congestive) and diastolic (congestive) heart failure; J96.01 Acute respiratory failure with hypoxia; D61.818 Other pancytopenia; N17.9 Acute kidney failure, unspecified; Z68.43 Body mass index [BMI] 50.0-59.9, adult; Z79.899 Other long term (current) drug therapy; I27.20 Pulmonary hypertension, unspecified; I48.91 Unspecified atrial fibrillation; K74.60 Unspecified cirrhosis of liver; E66.01 Morbid (severe) obesity due to excess calories; G47.33 Obstructive sleep apnea (adult) (pediatric); E87.5 Hyperkalemia; D25.9 Leiomyoma of uterus, unspecified; K42.9 Umbilical hernia without obstruction or gangrene; K80.20 Calculus of gallbladder without cholecystitis without obstruction; N18.9 Chronic kidney disease, unspecified
CPT/HCPCS: 36415; 71045; 72195; 76705; 76856; 80048; 80053; 80061; 80307; 81001; 82270; 82306; 82607; 82728; 82746; 83036; 83540; 83550; 83605; 83735; 83880; 84132; 84443; 84484; 85007; 85025; 85027; 85379; 86850; 86900; 86901; 86920; 93005; 93306; 93970; 94640; 94660; 96365; 96375; G0378; J1756

== ENCOUNTER 2025-08-15 19:13 | Inpatient (IN) | payer MEDICARE, MEDICAID ==
[~2025-08-15] VITALS: Ht 160 cm; Wt 142.2 kg
[~2025-08-15 19:13] MED LIST changes: +ALBU108A5 IN; +AMBR5TAB3 PO; +CARV6.2551 PO; +DAPA1TAB4 PO; +FER325T PO; +FURO1TAB31 PO; +FURO40TA4 PO; +SPIR25TA8 PO
--- NOTE | 2025-08-15 19:23 | ECG ---
[facility] Test Date: 2025-08-15 Test Time: 19:12:56 Pat Name: RAIZA TUCKER Department: ED Room: [address] [place] [address] Gender: F Body Trimmer: SHALINI : 1960 Requested By: EMERGENCY EMERGENCY Order Number: [id number] Reading MD: Dalton Zhang Measurements Intervals [place] Rate: 88 P: 0 AL: 0 QRS: 148 QRSD: 145 T: 92 QT: 393 QTc: 476 Interpretive Statements Atrial fibrillation IVCD, consider atypical RBBB Electronically Signed On 08-16-2025 15:07:58 PST by Dalton Zhang Please click the below link to view image of tracing.
--- NOTE | 2025-08-15 19:45 | ED.PDOC ---
History of Present Illness HPI Comments 65-year-old, morbidly obese female is brought in by EMS from prior residence for chief complaint of constant shortness of breath and bilateral leg swelling. Per EMS personnel report, patient has a significant history for AFib, CHF - on spironolactone furosemide, and hypertension. She endorses 1 month history of symptoms, which has been progressively getting worse over the past 2 weeks amid compliancy with her medications. She was found with initial at home O2 sat of 90% on room air, with lung sounds clear to auscultation, bilaterally. No history of home oxygen use. She was placed on 2 L via nasal cannula, with O2 sat improving to 92% but dropping following mild, light exertion. Patient comments on her symptoms feeling similar to a CHF exacerbation. No recent changes to her medications, with the exception of her night dose of furosemide being changed from 40 mg to 20 mg at night (usually, takes 40 mg of the medication in the morning and night for a total daily dose of 80 mg). She denies any chest pain, fever, cough, nausea, vomiting, congestion, or further acute symptoms. Chief Complaint: Shortness of Breath Time Seen by MD: 19:30 Reviewed Notes: Nurses Notes, Pvc Loader Notes, Medications, Allergies Allergies: Coded Allergies: NO KNOWN ALLERGIES (Unverified , 06/08/25) Home Meds Active Scripts Ferrous Sulfate (FERROUS SULFATE) 325 Mg Tb, 1 TAB PO DAILY for 30 Days, #30 TAB 1 [facility]/12/25 Albuterol Sulfate (Albuterol Sulfate Hfa) 108 Mcg/Act Aer, 108 MCG IN Q6HP PRN for 30 Days, #1 [facility]ER Prov:[facility] 06/12/25 Furosemide (Lasix) 40 Mg Tab, 40 MG PO BID for 30 Days, #60 TAB Prov:[facility] 06/12/25 Reported Medications Sildenafil Citrate (Sildenafil Citrate) 20 Mg Tab, 1 TAB PO TID for 90 Days, #27 0 06/09/25 Timolol Maleate (Ophth) (Timolol Maleate) 0.5 % [place]mina, 1 DROP EACHEYE QAM for 50 Days, #5 06/09/25 Latanoprost-Timolol Maleate (Timolol/Latanoprost 0.005-0.5 %) 1 Tahmina Tahmina, 1 TAHMINA EACHEYE HS for 50 Days, #5 06/08/25 Ambrisentan (Ambrisentan) 5 Mg Tab, 5 MG PO DAILY, TAB 06/08/25 Furosemide (Furosemide) 40 Mg Tab, 40 MG PO DAILY for 30 Days 06/08/25 Spironolactone (Spironolactone) 25 Mg Tab, 1 TAB PO DAILY, #90 TAB 1 Refill 06/08/25 Dapagliflozin Propanediol (Farxiga) 10 Mg Tab, 10 MG PO DAILY, TAB 06/08/25 Carvedilol (Carvedilol) 6.25 Mg Tab, 1 TAB PO DAILY, #180 TAB 1 Refill 06/08/25 Information Source: Patient, Emergency Med Personnel Mode of Arrival: EMS Severity: Moderate Timing: Weeks Duration: Since onset Prehospital treatment: 12 Lead EKG, Accucheck (136), Content Editor, Oxygen (2 L/min) Past Medical History PAST MEDICAL HISTORY: AFIB, Anemia, CHF (on spironolactone and furosemide), HTN (On carvedilol) Past Medical History (Other): At home albuterol inhaler he has Surgical History: Denies all surgeries DOCK SUPERINTENDENT History: No Pertinent DOCK SUPERINTENDENT History Family History Family History: Reviewed,noncontributory to illness, No family hx of Cancer, No family hx of DM, No family hx of Heart april, No family hx of HTN, No family hx ofKidney april, No family hx of Liver april, No family hx of Lung april, No family hx of Stroke Social History Smoker: Non-Smoker Alcohol: Denies ETOH Use Drugs: Denies Drug Use Lives In: Home, Assisted Care All Other Systems: Reviewed and Negative (Comprehensive review of systems are negative unless otherwise stated in HPI) Physical Exam General Appearance: Mild Distress, Obese HEENT: Normal ENT Inspection, Pharynx Normal, TMs Normal Neck: Full Range of Motion, Non-Tender, Normal, Normal Inspection Respiratory: Chest Non-Tender, Lungs Clear, No Accessory Muscle Use, Normal Breath Sounds, Respiratory Distress (Moderate), Other (Tachypneic) Cardiovascular: Irregular (Irregularly, irregular heart rate), No Edema, No JVD, No Murmur, No Gallop, Normal Peripheral Pulses Breast Exam: Deferred Gastrointestinal: No Organomegaly, Non Tender, No Pulsatile Mass, Normal Bowel Sounds, Soft Genitalia: Deferred Pelvic: Deferred Rectal: Deferred Extremities: Leg edema (Anasarca to the thighs ), No calf tenderness, Normal capillary refill, Normal range of motion, Non-tender, Swelling (Anasarca to the thighs ) Musculoskeletal : Apperance: Normal Neurologic: Alert, rotor blade installer II-XII nml as Tested, No Motor Deficits, Normal Affect, Normal Mood, No Sensory Deficits Cerebellar Function: Normal Reflexes: Normal Skin: Dry, Normal Color, Warm Lymphatic: No Adenopathy Was a procedure done? Was a procedure done?: No EKG EKG : Pulse Rate (adult): 88 [place]: Normal Cardiac Rhythm: Afib Block: None Hypertrophy: None ST: Normal Differential Dx Considerations may include: Acute CHF exacerbation, fluid retention, [place], PE, ACS, URI, pneumonia, viral syndrome, arrhythmia, among others X-Ray, Labs, Meds, VS Vital Signs Date Time Temp Pulse Resp B/P (MAP) Pulse Ox O2 Delivery O2 Flow Rate FiO2 08/15/25 20:34 96 Nasal Cannula* 2 28 08/15/25 19:55 97.6 75 22 104/52 (69) 96 97.6 08/15/25 19:45 88 08/15/25 19:25 97.8 77 18 116/58 92 97.8 08/15/25 19:18 88 Lab Test 08/15/25 20:10 08/15/25 19:17 Range/Units Troponin I High Sensitivity 24 28 </=34 ng/L White Blood Count 1.9 L 4.4-10.8 10^3/uL Red Blood Count 2.79 L 4.0-5.20 10^6/uL Hemoglobin 7.1 L 12.2-16.2 g/dL Hematocrit 23.5 L 36.0-46.0 % Mean Corpuscular Volume 84.4 80.0-100.0 fL Mean Corpuscular Hemoglobin 25.6 L 28.0-32.0 pg Mean Corpuscular Hemoglobin Concent 30.3 L 32.0-36.0 g/dL Red Cell Distribution Width 22.4 H 11.8-14.3 % Platelet Count 52 L 140-450 10^3/uL Mean Platelet Volume 8.2 6.9-10.8 fL Neutrophils (%) (Auto) 69.2 37.0-80.0 % Lymphocytes (%) (Auto) 13.6 10.0-50.0 % Monocytes (%) (Auto) 14.1 H 0.0-12.0 % Eosinophils (%) (Auto) 2.6 0.0-7.0 % Basophils (%) (Auto) 0.5 0.0-2.0 % Neutrophils # (Auto) 1.3 L 1.6-8.6 10 ^3/uL Lymphocytes # (Auto) 0.3 L 0.4-5.4 10 ^3/uL Monocytes # (Auto) 0.3 0-1.3 10 ^3/uL Eosinophils # (Auto) 0 0-0.8 10 ^3/uL Basophils # (Auto) 0 0-0.2 10 ^3/uL Nucleated Red Blood Cells 0.3 % Platelet Estimate Decreased Anisocytosis (manual) Slight Sodium Level 141 136-145 mmol/L Potassium Level 6.3 *H 3.5-5.1 mmol/L Chloride Level 107 98-107 mmol/L Carbon Dioxide Level 25 20-31 mmol/L Anion Gap 9 5-15 Blood Urea Nitrogen 84 *H 9-23 mg/dL Creatinine 2.14 H 0.550-1.02 mg/dL Glomerular Filtration Rate Calc 25 >90 mL/min BUN/Creatinine Ratio 39.3 H 10.0-20.0 Serum Glucose 126 H 74-106 mg/dL Calcium Level 8.9 8.7-10.4 mg/dL B-Type Natriuretic Peptide 207.44 0-100 pg/mL Lipase 178 H 12-53 U/L Current Medications Medications (Trade) Dose Ordered Sig/Erum Route Start Time Stop Time Status Last Admin Insulin Human Regular (InsuLIN R) 5 units ONCE ONCE IV 08/15/25 20:30 08/15/25 20:31 DC 08/15/25 21:27 Dextrose 100 ml ONCE ONCE IV 08/15/25 20:30 08/15/25 20:31 DC 08/15/25 21:27 Sodium Bicarbonate 50 ml ONCE ONCE IV 08/15/25 20:30 08/15/25 20:31 DC 08/15/25 21:25 Albuterol (Ventolin Medneb) 5 mg ONCE ONCE NEB 08/15/25 20:30 08/15/25 20:31 DC 08/15/25 20:42 Furosemide (Lasix Injection) 40 mg ONCE ONCE IV 08/15/25 20:30 08/15/25 20:31 DC 08/15/25 22:07 Zirconium Oxide (Lokelma) 10 gm ONCE ONCE PO 08/15/25 20:30 08/15/25 20:31 DC 08/15/25 21:[address] [address] Ph: [phone] DIAGNOSTIC IMAGING Diagnostic Imaging Report : [id number] Signed PATIENT: RAIZA TUCKER ACCT: [id number] UNIT: [id number] : 1960 LOC: ER ROOM / BED: / AGE / SEX: 65 / F ADM STATUS: REG ER SERVICE 33 ORDERING PHYSICIAN: ZO SCHAFFER MD PROCEDURE(s): CXRP - CHEST PORTABLE REASON: SOB ORDER NUMBER(s): [id number], ACCESSION NUMBER(s): [id number] INDICATION: SOB TECHNIQUE: Frontal view of the chest. COMPARISON: XY CHEST PORTABLE on DOS: 06/08/25 FINDINGS/IMPRESSION: Hazy opacities are seen throughout the right lung. Unchanged enlargement of the cardiomediastinal silhouette. No pleural effusion or pneumothorax. No acute osseous abnormality. ATED BY: VAZQUEZ CEDEÑO MD DICTATED DATE/TIME: 08/15/251949 SIGNED BY: VAZQUEZ CEDEÑO MD SIGNED DATE/TIME: 08/15/251949 CC: X-Ray, Labs, Meds, VS Comment Patient presenting with shortness of breath and lower extremity edema in the setting of decrease Lasix dosage for the past month. Patient hypoxic on arrival in moderate respiratory distress and tachypneic. Lab work (CBC, BMP) to evaluate for evidence of severe anemia, electrolyte abnormality including hypokalemia, hyperkalemia, hypernatremia, hyponatremia, hyperglycemia, hypoglycemia, etc. EKG and troponin to evaluate for evidence of arrhythmia, ACS, AMI Chest x-ray to evaluate for pneumonia, pneumothorax with volume overload IV Lasix Re-evaluate Social determinant surveillance affecting care: Social determinants of health that will affect the patient's care: Poor health literacy (additional time provided an explanation) Poor access to outpatient care/followup (provided outpatient resources) Time of 1ST Reevaluation: 20:20 Reevaluation 1ST: Unchanged Patient Education/Counseling: Diagnosis, Treatment, Other (Need for hospital admission) Family Education/Counseling: No Family Present SEPSIS Sepsis Screen Date sepsis recognized/suspect: Aug 15, 2025 Time Sepsis recognized/suspect: 1916 Recent Procedure: No On Antibiotic Therapy: No Respiratory Rate >20: No Heart Rate >90: No Temp<36 C (96.8 F) or >38.3 C: No SBP <90 or MAP <65 mmHG: No New Acute Mental Status Change: No Is the patient on CPAP, BIPAP,: No Physician Orders Urinalysis (08/15/25 UNK) Chest Portable (08/15/25 19:34) Vital Signs Date Time Temp Pulse Resp B/P (MAP) Pulse Ox O2 Delivery O2 Flow Rate FiO2 08/15/25 20:34 96 Nasal Cannula* 2 28 08/15/25 19:55 97.6 75 22 104/52 (69) 96 97.6 08/15/25 19:45 88 08/15/25 19:25 97.8 77 18 116/58 92 97.8 08/15/25 19:18 88 Laboratory Tests Test 08/15/25 19:17 White Blood Count 1.9 10^3/uL (4.4-10.8) L Medications Medications Dose Ordered Sig/Erum Route Start Time Stop Time Status Last Admin Dose Admin Albuterol 5 mg ONCE ONCE NEB 08/15/25 20:30 08/15/25 20:31 DC 08/15/25 20:42 Dextrose 100 ml ONCE ONCE IV 08/15/25 20:30 08/15/25 20:31 DC 08/15/25 21:27 Furosemide 40 mg ONCE ONCE IV 08/15/25 20:30 08/15/25 20:31 DC 08/15/25 22:07 Insulin Human Regular 5 units ONCE ONCE IV 08/15/25 20:30 08/15/25 20:31 DC 08/15/25 21:27 Sodium Bicarbonate 50 ml ONCE ONCE IV 08/15/25 20:30 08/15/25 20:31 DC 08/15/25 21:25 Zirconium Oxide 10 gm ONCE ONCE PO 08/15/25 20:30 08/15/25 20:31 DC 08/15/25 21:25 Departure 1 Departure Time of Disposition: 20:32 (On reassessment, patient found to have an elevated creatinine, hyperkalemia, volume overload on chest x-ray. Given hyperkalemia cocktail and IV Lasix. We will admit for CHF exacerbation, hyperkalemia, acute renal failure.) Impression: Primary Impression: Acute on chronic heart failure Qualified Codes: I50.9 - Heart failure, unspecified Additional Impressions: Hypoxic respiratory failure Qualified Codes: J96.01 - Acute respiratory failure with hypoxia Acute renal failure Qualified Codes: N17.9 - Acute kidney failure, unspecified Acute hyperkalemia Acute dyspnea Anasarca Disposition: ADMITTED INPATIENT Admit to: Tele Condition: Guarded Critical Care Note Critical Care Time?: Yes (35 min-critical care time only) Critical care comment: Critical care time for hypoxia and CHF Stability Stability form required: No Heart Score Heart Score: Heart Score Response (Comments) Value History Moderate Suspicious 1 EKG Repolarization Disturb 1 Age >65 2 Risk Factors >3 or Hx ASHD 2 Troponin 1-2 x's Normal limit 1 Total 7 I personally scribed for ZO SCHAFFER MD ([email or web address]) on 08/15/25 at 19:45. Electronically submitted by Gamal White ([email or web address]). I personally scribed for ZO SCHAFFER MD ([email or web address]) on 08/15/25 at 20:32. Electronically submitted by Gamal White ([email or web address]). I personally scribed for ZO SCHAFFER MD ([email or web address]) on 08/15/25 at 20:48. Electronically submitted by Gamal White ([email or web address]). ZO SCHAFFER MD Aug 15, 2025 19:45
[2025-08-15 19:52] LABS: Sodium 141 mmol/L (136-145)
[2025-08-15 19:53] LABS: Anion Gap 9 (5-15); Calcium 8.9 mg/dL (8.7-10.4); Carbon Dioxide 25 mmol/L (20-31); Hemoglobin 7.1 g/dL (12.2-16.2); Mean Corpuscular Hemoglobin 25.6 pg (28.0-32.0)
--- NOTE | 2025-08-15 19:53 | DVH ---
INDICATION: SOB TECHNIQUE: Frontal view of the chest. COMPARISON: XY CHEST PORTABLE on DOS: 06/08/25 FINDINGS/IMPRESSION: Hazy opacities are seen throughout the right lung. Unchanged enlargement of the cardiomediastinal silhouette. No pleural effusion or pneumothorax. No acute osseous abnormality.
[2025-08-15 19:55] LABS: Hematocrit 23.5 % (36.0-46.0); Mean Corpuscular Volume 84.4 fL (80.0-100.0); Nucleated Red Blood Cells % 0.3 %
[2025-08-15 19:58] LABS: BUN/Creatinine Ratio 39.3 (10.0-20.0)
[2025-08-15 20:09] LABS: Chloride 107 mmol/L (98-107); Glucose 126 mg/dL (74-106); Lipase 178 U/L (12-53)
[2025-08-15 20:11] LABS: Potassium 6.3 mmol/L (3.5-5.1)
[2025-08-15 20:12] LABS: Blood Urea Nitrogen 84 mg/dL (9-23)
[2025-08-15 20:34] VITALS: O2SAT 96
[2025-08-15] MEDS: ALBUTEROL SULF 2.5 MG/0.5ML(0.5%) NEB SOLN NEB ONE (20:42)
[2025-08-15] MEDS ORDERED: NITROGLYCERIN 0.4 MG SL TAB SL PRN (20:45)
[2025-08-15] MEDS ORDERED: MORPHINE SULFATE INJ 2 MG/ml SYRG IV PRN (20:45)
[2025-08-15 20:55] LABS: Anisocytosis Slight
[2025-08-15] MEDS: ALBUMIN 25% 100 ML IV ONE (21:20)
[2025-08-15] MEDS: SODIUM ZIRCONIUM CYCL 10 GM PAK PO ONE (21:25)
[2025-08-15] MEDS: SODIUM BICARB 8.4% 50Meq/50ml SYR Vial IV ONE (21:25)
[2025-08-15] MEDS: InsuLIN REG 1unit/0.01ml Soln (100units/ml) IV ONE (21:27)
[2025-08-15] MEDS: DEXTROSE (50%) 50ML SYRG IV ONE (21:27)
[2025-08-15] MEDS: CARVEDILOL 3.125 MG TAB PO SCH (22:00)
[2025-08-15] MEDS: FUROSEMIDE 40 MG/4 ML VIAL IV ONE (22:07)
--- NOTE | 2025-08-15 22:18 | DVHHP2 ---
History of Present Illness Reason for Visit: Shortness for breath History of Present Illness 65-year-old female presents for evaluation of shortness for breath. Patient reports a two week history of worsening shortness for breath with associated lower extremity swelling. Denies chest pain or pressure. No fever or chills. Past Medical History Anemia, atrial fibrillation, congestive heart failure, hypertension, pulmonary hypertension Past Surgical History Denies Family History Noncontributory Smoke: No ALCOHOL: none Drugs: None Lives: with Family Review of Systems Review of Systems Review of systems are currently negative otherwise addressed in HPI. Allergies: Coded Allergies: NO KNOWN ALLERGIES (Unverified , 06/08/25) Medications Current Medications Medications Dose Ordered Sig/Erum Route Start Time Stop Time Status Last Admin Dose Admin Nitroglycerin 0.4 mg Q5MINP PRN SL 08/15/25 20:45 Morphine Sulfate 2 mg Q30M PRN IV 08/15/25 20:45 Furosemide 20 mg BIDD IV 08/16/25 06:00 UNV Carvedilol 6.25 mg Q12HR PO 08/15/25 22:00 UNV Sildenafil Citrate 20 mg TID@08,14,20 PO 08/16/25 08:00 UNV Ferrous Sulfate 325 mg BIDWM PO 08/16/25 08:00 UNV Albuterol 2.5 mg Q6HPRN PRN NEB 08/15/25 21:45 UNV Azithromycin 250 ml @ 125 mls/hr DAILY IV 08/16/25 10:00 UNV Ondansetron HCl 4 mg Q4HP PRN IV 08/15/25 22:15 UNV Acetaminophen 650 mg Q6HP PRN PO 08/15/25 22:15 UNV Exam Vital Signs Vital Signs Date Time Temp Pulse Resp B/P (MAP) Pulse Ox O2 Delivery O2 Flow Rate FiO2 08/15/25 22:07 112/51 08/15/25 22:00 79 13 95 08/15/25 20:43 Nasal Cannula* 2 28 08/15/25 19:55 97.6 97.6 Exam Gen: 65-year-old female in mild distress, morbidly obese Skin: Warm, dry, normal color and texture, no rash. HEENT: Normocephalic atraumatic, mucous membranes moist and pink. Neck: Cervical and supraclavicular nodes normal without enlargement, trachea is midline, thyroid gland is normal without masses. Pulmonary: Clear to auscultation and percussion bilaterally. Cardiac: Regular rate and rhythm. No murmur Abdomen: Soft, nontender, nondistended, bowel sounds present all 4 quadrants, no guarding, no rigidity, no organomegaly. Extremities: No cyanosis, clubbing, plus two bilateral Neuro: Cranial nerves II through XII grossly intact, normal affect and speech, no focal motor deficits. Labs/Xrays ORDERING PHYSICIAN: ZO SCHAFFER MD PROCEDURE(s): CXRP - CHEST PORTABLE REASON: SOB ORDER NUMBER(s): [id number], ACCESSION NUMBER(s): [id number] INDICATION: SOB TECHNIQUE: Frontal view of the chest. COMPARISON: XY CHEST PORTABLE on DOS: 06/08/25 FINDINGS/IMPRESSION: Hazy opacities are seen throughout the right lung. Unchanged enlargement of the cardiomediastinal silhouette. No pleural effusion or pneumothorax. No acute osseous abnormality. Labs Test 08/15/25 20:10 08/15/25 19:17 Range/Units Troponin I High Sensitivity 24 </=34 ng/L White Blood Count 1.9 L 4.4-10.8 10^3/uL Red Blood Count 2.79 L 4.0-5.20 10^6/uL Hemoglobin 7.1 L 12.2-16.2 g/dL Hematocrit 23.5 L 36.0-46.0 % Mean Corpuscular Volume 84.4 80.0-100.0 fL Mean Corpuscular Hemoglobin 25.6 L 28.0-32.0 pg Mean Corpuscular Hemoglobin Concent 30.3 L 32.0-36.0 g/dL Red Cell Distribution Width 22.4 H 11.8-14.3 % Platelet Count 52 L 140-450 10^3/uL Mean Platelet Volume 8.2 6.9-10.8 fL Neutrophils (%) (Auto) 69.2 37.0-80.0 % Lymphocytes (%) (Auto) 13.6 10.0-50.0 % Monocytes (%) (Auto) 14.1 H 0.0-12.0 % Eosinophils (%) (Auto) 2.6 0.0-7.0 % Basophils (%) (Auto) 0.5 0.0-2.0 % Neutrophils # (Auto) 1.3 L 1.6-8.6 10 ^3/uL Lymphocytes # (Auto) 0.3 L 0.4-5.4 10 ^3/uL Monocytes # (Auto) 0.3 0-1.3 10 ^3/uL Eosinophils # (Auto) 0 0-0.8 10 ^3/uL Basophils # (Auto) 0 0-0.2 10 ^3/uL Nucleated Red Blood Cells 0.3 % Platelet Estimate Decreased Anisocytosis (manual) Slight Sodium Level 141 136-145 mmol/L Potassium Level 6.3 *H 3.5-5.1 mmol/L Chloride Level 107 98-107 mmol/L Carbon Dioxide Level 25 20-31 mmol/L Anion Gap 9 5-15 Blood Urea Nitrogen 84 *H 9-23 mg/dL Creatinine 2.14 H 0.550-1.02 mg/dL Glomerular Filtration Rate Calc 25 >90 mL/min BUN/Creatinine Ratio 39.3 H 10.0-20.0 Serum Glucose 126 H 74-106 mg/dL Calcium Level 8.9 8.7-10.4 mg/dL B-Type Natriuretic Peptide 207.44 0-100 pg/mL Lipase 178 H 12-53 U/L SEPSIS Sepsis Screen Date sepsis recognized/suspect: Aug 15, 2025 Time Sepsis recognized/suspect: 2199 Recent Procedure: No On Antibiotic Therapy: No Respiratory Rate >20: Yes Heart Rate >90: No Temp<36 C (96.8 F) or >38.3 C: No SBP <90 or MAP <65 mmHG: No New Acute Mental Status Change: No Is the patient on CPAP, BIPAP,: No Physician Orders Urinalysis (08/15/25 UNK) Chest Portable (08/15/25 19:34) Admit (08/15/25 20:38) Nitroglycerin Sublingual (Ntrostat Subli (08/15/25 20:45) Morphine Sulfate Injection (08/15/25 20:45) Stat Ekg For Chest Pain (08/15/25 20:38) Notify Of Changes From Base (08/15/25 20:38) Motor Pool Clerk For 24 Hours (08/15/25 20:38) Emergency Dysrhythmia Protocol (08/15/25 20:38) Rhythm Strips Once Every Shift (08/15/25 20:38) Oxygen By Nasal Cannula (08/15/25 20:38) Lactic Acid W/ Reflex Order (08/15/25 21:36) Furosemide Injection (Lasix Injection) (08/16/25 06:00) Carvedilol Tablet (Coreg Tablet) (08/15/25 22:00) Sildenafil Citrate (Revatio) (08/16/25 08:00) Ferrous Sulfate Tablet (08/16/25 08:00) *Dr. Angelo [facility] (08/15/25 21:36) Basic Metabolic Panel (08/16/25 04:00) Albuterol Medneb (Ventolin Medneb) (08/15/25 21:45) Azithromycin 500mg/250ml (Zithromax 500m (08/16/25 10:00) Azithromycin 500mg/250ml (Zithromax 500m (08/15/25 21:45) Renal Standard(2gna,3gk,Lopho) (08/16/25 Breakfast) Ondansetron Hcl (Zofran) (08/15/25 22:15) Complete Blood Count (08/16/25 04:00) Condition: Fair (08/15/25 22:04) Acetaminophen Tablet (Tylenol Tablet) (08/15/25 22:15) Bedrest With Bathroom Privileg (08/15/25 22:04) Vital Signs Date Time Temp Pulse Resp B/P (MAP) Pulse Ox O2 Delivery O2 Flow Rate FiO2 08/15/25 22:07 112/51 08/15/25 22:00 79 13 112/51 (71) 95 08/15/25 20:43 14 95 Nasal Cannula* 2 28 08/15/25 20:34 96 Nasal Cannula* 2 28 08/15/25 19:55 97.6 75 22 104/52 (69) 96 97.6 08/15/25 19:45 88 08/15/25 19:25 97.8 77 18 116/58 92 97.8 08/15/25 19:18 88 Laboratory Tests Test 08/15/25 19:17 Lactic Acid Level Pending White Blood Count 1.9 10^3/uL (4.4-10.8) L Medications Medications Dose Ordered Sig/Erum Route Start Time Stop Time Status Last Admin Dose Admin Albumin Human 100 ml @ 100 mls/hr ONCE ONCE IV 08/15/25 21:00 08/15/25 21:59 DC 08/15/25 21:20 100 MLS/HR Albuterol 5 mg ONCE ONCE NEB 08/15/25 20:30 08/15/25 20:31 DC 08/15/25 20:42 5 MG Dextrose 100 ml ONCE ONCE IV 08/15/25 20:30 08/15/25 20:31 DC 08/15/25 21:27 100 ML Furosemide 40 mg ONCE ONCE IV 08/15/25 20:30 08/15/25 20:31 DC 08/15/25 22:07 40 MG Insulin Human Regular 5 units ONCE ONCE IV 08/15/25 20:30 08/15/25 20:31 DC 08/15/25 21:27 5 UNITS Sodium Bicarbonate 50 ml ONCE ONCE IV 08/15/25 20:30 08/15/25 20:31 DC 08/15/25 21:25 50 ML Zirconium Oxide 10 gm ONCE ONCE PO 08/15/25 20:30 08/15/25 20:31 DC 08/15/25 21:25 10 GM Assessment/Plan Assessment/Plan Assessment Acute on chronic respiratory failure Acute on chronic renal failure Pulmonary hypertension Heart failure secondary to the above Questionable pneumonia Morbid obesity Pancytopenia Plan Admit the patient to telemetry to the hospitalist Nephrology consultation IV Lasix Resume home medications Continue treatment per orders. Plan discussed with: Patient My Orders Orders - ALINA COVINGTON AGACNP Procedure Category Date Status Time Admit ADMIT 08/15/25 Transmitted 20:38 Nitroglycerin PHA 08/15/25 In Process Sublingual (Ntrostat 20:45 Morphine Sulfate PHA 08/15/25 In Process Injection 20:45 Stat Ekg For Chest GILDARDO 08/15/25 In Process Pain 20:38 Notify Of Changes GILDARDO 08/15/25 In Process From Base 20:38 Motor Pool Clerk For GILDARDO 08/15/25 In Process 24 Hours 20:38 Emergency Dysrhythmia GILDARDO 08/15/25 In Process Protocol 20:38 Rhythm Strips Once GILDARDO 08/15/25 In Process Every Shift 20:38 Oxygen By Nasal RT 08/15/25 Transmitted Cannula 20:38 Lactic Acid W/ Reflex LAB 08/15/25 In Process Order 21:36 Furosemide Injection PHA 08/16/25 Logged (Lasix Injection) 06:00 Carvedilol Tablet PHA 08/15/25 Logged (Coreg Tablet) 22:00 Sildenafil Citrate PHA 08/16/25 Logged (Revatio) 08:00 Ferrous Sulfate Tablet PHA 08/16/25 Logged 08:00 *Dr. Angelo [facility] CONS 08/15/25 Transmitted -[place] 21:36 Basic Metabolic Panel LAB 08/16/25 Verified 04:00 Albuterol Medneb PHA 08/15/25 Logged (Ventolin Medneb) 21:45 Azithromycin PHA 08/16/25 Logged 500mg/250ml 10:00 Azithromycin PHA 08/15/25 Logged 500mg/250ml 21:45 Renal DIET 08/16/25 Transmitted Standard(2gna,3gk,Lopho) Breakfast Ondansetron Hcl PHA 08/15/25 Logged (Zofran) 22:15 Complete Blood Count LAB 08/16/25 Verified 04:00 Condition: Fair GILDARDO 08/15/25 In Process 22:04 Acetaminophen Tablet PHA 08/15/25 Logged (Tylenol Tablet) 22:15 Bedrest With Bathroom GILDARDO 08/15/25 In Process Privileg 22:04 Date of Service: Aug 15, 2025 Billing Provider: ALINA COVINGTON Common Visit Codes: [id number] INP/OBS CARE (HIGH) ALINA COVINGTON Aug 15, 2025 22:18
[2025-08-15 22:28] VITALS: O2SAT 95
[2025-08-15 22:29] VITALS: BP 112/51; PULSE 79; RESP 13; TEMP 97.6; O2SAT 95
[2025-08-15] MEDS: AZITHROMYCIN 500MG/250ML 250 ML IV ONE (23:28)
[2025-08-16] VITALS (12 sets, daily range): BP systolic 109–178; BP diastolic 32–71; PULSE 75–91; RESP 12–20; TEMP 97.8–98.5; O2SAT 92–100
[2025-08-16] MEDS: ALBUTEROL SULF 2.5 MG/0.5ML(0.5%) NEB SOLN NEB PRN (00:17)
[2025-08-16 03:39] LABS: Hematocrit 21.5 % (36.0-46.0); Mean Corpuscular Volume 83.9 fL (80.0-100.0)
[2025-08-16 03:42] LABS: Mean Corpuscular Hemoglobin 25.6 pg (28.0-32.0)
[2025-08-16 03:51] LABS: Hemoglobin 6.5 g/dL (12.2-16.2)
[2025-08-16 03:59] LABS: Anion Gap 10 (5-15); Calcium 9.0 mg/dL (8.7-10.4); Carbon Dioxide 24 mmol/L (20-31); Chloride 107 mmol/L (98-107); Sodium 141 mmol/L (136-145)
[2025-08-16 04:05] LABS: BUN/Creatinine Ratio 39.6 (10.0-20.0)
[2025-08-16 04:09] LABS: Glucose 114 mg/dL (74-106)
[2025-08-16 04:11] LABS: Blood Urea Nitrogen 80 mg/dL (9-23); Potassium 6.0 mmol/L (3.5-5.1)
[2025-08-16 04:48] LABS: Urine Protein, UAD TRACE (Negative); Urine WBC Clumps PRESENT /hpf (None Seen)
[2025-08-16] MEDS: SODIUM ZIRCONIUM CYCL 10 GM PAK PO ONE (05:04)
[2025-08-16] MEDS: DEXTROSE (50%) 50ML SYRG IV ONE (05:04)
[2025-08-16] MEDS: CALCIUM GLUC 1,000mg/50ml-NS 50 ML IV ONE (05:04)
[2025-08-16] MEDS: SODIUM BICARB 8.4% 50Meq/50ml SYR Vial IV ONE (05:04)
[2025-08-16] MEDS: InsuLIN REG 1unit/0.01ml Soln (100units/ml) IV ONE (05:10)
[2025-08-16 05:20] LABS: Anisocytosis Slight; Ovalocytes FEW; Total Cells Counted 100.0 (100)
[2025-08-16] MEDS: PANTOPRAZOLE 40 MG TAB PO SCH (06:15)
[2025-08-16] MEDS: FUROSEMIDE 20 MG/2 ML VIAL IV SCH (06:15)
--- NOTE | 2025-08-16 08:50 | DVHINCON2 ---
Date of service: Aug 16, 2025 Referring Physician Librado Hubbard, nurse practitioner Reason for Consultation Acute kidney injury History of Present Illness Patient is 65-year-old morbidly obese female with past medical history significant for AFIB, Anemia, CHF, liver cirrhosis and HTN is admitted for progressive shortness of breath and bilateral lower extremity swelling. On admission patient found to have elevated BUN creatinine nephrology is consulted for acute kidney injury Past Medical History AFIB, Anemia, CHF, HTN Liver cirrhosis Past Surgical History Patient denies Allergies: Coded Allergies: NO KNOWN ALLERGIES (Unverified , 06/08/25) Home Meds Active Scripts Ferrous Sulfate (FERROUS SULFATE) 325 Mg Tb, 1 TAB PO DAILY for 30 Days, #30 TAB 1 Refill Prov:CHRIS ROQUE RESIDENT 06/12/25 Albuterol Sulfate (Albuterol Sulfate Hfa) 108 Mcg/Act Aer, 108 MCG IN Q6HP PRN for 30 Days, #1 AER Prov:CHRIS ROQUE RESIDENT 06/12/25 Furosemide (Lasix) 40 Mg Tab, 40 MG PO BID for 30 Days, #60 TAB Prov[facility] 06/12/25 Reported Medications Sildenafil Citrate (Sildenafil Citrate) 20 Mg Tab, 1 TAB PO TID for 90 Days, #2 70 06/09/25 Timolol Maleate (Ophth) (Timolol Maleate) 0.5 % Sara, 1 DROP EACHEYE QAM for 50 Days, #5 06/09/25 Latanoprost-Timolol Maleate (Timolol/Latanoprost 0.005-0.5 %) 1 Sara Sara, 1 SARA EACHEYE HS for 50 Days, #5 06/08/25 Ambrisentan (Ambrisentan) 5 Mg Tab, 5 MG PO DAILY, TAB 06/08/25 Furosemide (Furosemide) 40 Mg Tab, 40 MG PO DAILY for 30 Days 06/08/25 Spironolactone (Spironolactone) 25 Mg Tab, 1 TAB PO DAILY, #90 TAB 1 Refill 06/08/25 Dapagliflozin Propanediol (Farxiga) 10 Mg Tab, 10 MG PO DAILY, TAB 06/08/25 Carvedilol (Carvedilol) 6.25 Mg Tab, 1 TAB PO DAILY, #180 TAB 1 Refill 06/08/25 Current Medications Current Medications Medications (Trade) Dose Ordered Sig/Erum Route PRN Reason Start Time Stop Time Status Last Admin Nitroglycerin (Ntrostat Sublingual) 0.4 mg Q5MINP PRN SL FOR CHEST PAIN 08/15/25 20:45 Morphine Sulfate 2 mg Q30M PRN IV FOR CHEST PAIN 08/15/25 20:45 Furosemide (Lasix Injection) 20 mg BIDD IV 08/16/25 06:00 08/16/25 06:15 Carvedilol (Coreg Tablet) 6.25 mg Q12HR PO 08/15/25 22:00 08/16/25 09:01 Sildenafil Citrate (Revatio) 20 mg TID@08,14,20 PO 08/16/25 08:00 08/16/25 09:00 Ferrous Sulfate 325 mg BIDWM PO 08/16/25 08:00 08/16/25 09:02 Albuterol (Ventolin Medneb) 2.5 mg Q6HPRN PRN NEB SHORTNESS OF BREATH 08/15/25 21:45 08/16/25 00:17 Azithromycin 250 ml @ 125 mls/hr DAILY IV 08/16/25 10:00 08/16/25 09:01 Ondansetron HCl (Zofran) 4 mg Q4HP PRN IV NAUSEA / VOMITING 08/15/25 22:15 Acetaminophen (Tylenol Tablet) 650 mg Q6HP PRN PO PAIN SCALE 1-3 OR TEMP>100.4 08/15/25 22:15 Pantoprazole Sodium (Protonix Tablet) 40 mg DAILY@0600 PO 08/16/25 06:00 08/16/25 06:15 Dopamine HCl/ Dextrose 250 ml @ 9.975 mls/ hr Q24H IV 08/16/25 08:45 08/16/25 10:19 Albumin Human 100 ml @ 100 mls/hr Q8H IV 08/16/25 08:45 08/17/25 01:44 08/16/25 09:36 Octreotide Acetate (SandoSTATIN) 100 mcg TID SUBCUT 08/16/25 14:00 08/16/25 14:00 Midodrine (Proamatine Tablet) 10 mg TID@0600,1200,1800 PO 08/16/25 09:00 08/16/25 09:34 Bumetanide (Bumex Injection) 1 mg BIDD IV 08/16/25 11:00 08/16/25 11:00 Family History: Patient reports no known family medical history. Review of Systems All 12 item review of systems reviewed with the patient nonsignificant except what is mentioned in the history of present illness H&P Exam Vital Signs/I&O Vital Sign Date Time Temp Pulse Resp B/P (MAP) Pulse Ox O2 Delivery O2 Flow Rate FiO2 08/16/25 13:00 97.9 80 15 134/32 97.9 08/16/25 13:00 92 08/16/25 11:30 Nasal Cannula* 1 24 Intake and Output 08/15/25 08/16/25 19:00 07:00 Intake Total 350 ml Balance 350 ml Intake IV Total 350 ml Physical Exam Obese female O2 nasal cannula Lungs clear to auscultation bilaterally Cardiac exam regular rate and rhythm GI soft bowel sounds are present normal BS+ Extremity 1+ edema Neuro nonfocal Labs/Diagnostic Data Labs/Diagnostic Data Laboratory Tests Test 08/16/25 11:00 08/16/25 04:10 08/16/25 03:21 08/15/25 22:13 Range/Units Vitamin D 25-Hydroxy 59.6 30.0-100 ng/mL Urine Color Colorless Yellow Urine Clarity Turbid H Clear Urine pH 5.0 5.0-9.0 Urine Specific [place] 1.010 1.001-1.035 Urine Protein Trace H Negative Urine Ketones Negative Negative Urine Blood 2+ H Negative /uL Urine Nitrite Negative Negative Urine Bilirubin Negative Negative Urine Urobilinogen Normal Negative mg/dL Urine Leukocyte Esterase 3+ Negative /uL Urine RBC 243 0 - 4 /hpf Urine WBC Clumps Present None Seen /hpf Urine Microscopic WBC 285 H 0-5 /HPF Urine Squamous Epithelial Cells Few <5 /hpf Urine Bacteria Few H None Seen /hpf Urine Hyaline Casts Many 0 - 2 /lpf Urine Glucose Normal Normal mg/dL White Blood Count 1.9 L 4.4-10.8 10^3/uL Red Blood Count 2.56 L 4.0-5.20 10^6/uL Hemoglobin 6.5 *L 12.2-16.2 g/dL Hematocrit 21.5 L 36.0-46.0 % Mean Corpuscular Volume 83.9 80.0-100.0 fL Mean Corpuscular Hemoglobin 25.6 L 28.0-32.0 pg Mean Corpuscular Hemoglobin Concent 30.5 L 32.0-36.0 g/dL Red Cell Distribution Width 22.0 H 11.8-14.3 % Platelet Count 46 L 140-450 10^3/uL Mean Platelet Volume 7.8 6.9-10.8 fL Neutrophils (%) (Auto) 37.0-80.0 % Lymphocytes (%) (Auto) 10.0-50.0 % Monocytes (%) (Auto) 0.0-12.0 % Basophils (%) (Auto) 0.0-2.0 % Neutrophils # (Auto) 1.6-8.6 10 ^3/uL Lymphocytes # (Auto) 0.4-5.4 10 ^3/uL Monocytes # (Auto) 0-1.3 10 ^3/uL Differential Total Cells Counted 100.0 100 Neutrophils % (Manual) 62 37.0-80.0 Band Neutrophils % (Manual) 0 Lymphocytes % (Manual) 20 10.0-50.0 Monocytes % (Manual) 15 H 0-12 Eosinophils % (Manual) 2 0-7 Basophils % (Manual) 0 0.0-2.0 Metamyelocytes % (manual) 1 Myelocytes % (Manual) 0 Promyelocytes % (Manual) 0 Blast Cells % (Manual) 0 Reactive Lymphocytes 0 Platelet Estimate Decreased Anisocytosis (manual) Slight Ovalocytes Few Sodium Level 141 136-145 mmol/L Potassium Level 6.0 *H 3.5-5.1 mmol/L Chloride Level 107 98-107 mmol/L Carbon Dioxide Level 24 20-31 mmol/L Anion Gap 10 5-15 Blood Urea Nitrogen 80 *H 9-23 mg/dL Creatinine 2.02 H 0.550-1.02 mg/dL Glomerular Filtration Rate Calc 27 >90 mL/min BUN/Creatinine Ratio 39.6 H 10.0-20.0 Serum Glucose 114 H 74-106 mg/dL Calcium Level 9.0 8.7-10.4 mg/dL Phosphorus Level 5.0 2.4-5.1 mg/dL Magnesium Level 3.1 H 1.6-2.6 mg/dL Parathyroid Hormone (Intact) 186.8 H 18.4-80.1 pg/mL Lactic Acid Level 0.9 0.4-2.0 mmol/L Test 08/15/25 20:10 08/15/25 19:17 Range/Units Troponin I High Sensitivity 24 28 </=34 ng/L White Blood Count 1.9 L 4.4-10.8 10^3/uL Red Blood Count 2.79 L 4.0-5.20 10^6/uL Hemoglobin 7.1 L 12.2-16.2 g/dL Hematocrit 23.5 L 36.0-46.0 % Mean Corpuscular Volume 84.4 80.0-100.0 fL Mean Corpuscular Hemoglobin 25.6 L 28.0-32.0 pg Mean Corpuscular Hemoglobin Concent 30.3 L 32.0-36.0 g/dL Red Cell Distribution Width 22.4 H 11.8-14.3 % Platelet Count 52 L 140-450 10^3/uL Mean Platelet Volume 8.2 6.9-10.8 fL Neutrophils (%) (Auto) 69.2 37.0-80.0 % Lymphocytes (%) (Auto) 13.6 10.0-50.0 % Monocytes (%) (Auto) 14.1 H 0.0-12.0 % Eosinophils (%) (Auto) 2.6 0.0-7.0 % Basophils (%) (Auto) 0.5 0.0-2.0 % Neutrophils # (Auto) 1.3 L 1.6-8.6 10 ^3/uL Lymphocytes # (Auto) 0.3 L 0.4-5.4 10 ^3/uL Monocytes # (Auto) 0.3 0-1.3 10 ^3/uL Eosinophils # (Auto) 0 0-0.8 10 ^3/uL Basophils # (Auto) 0 0-0.2 10 ^3/uL Nucleated Red Blood Cells 0.3 % Platelet Estimate Decreased Anisocytosis (manual) Slight Sodium Level 141 136-145 mmol/L Potassium Level 6.3 *H 3.5-5.1 mmol/L Chloride Level 107 98-107 mmol/L Carbon Dioxide Level 25 20-31 mmol/L Anion Gap 9 5-15 Blood Urea Nitrogen 84 *H 9-23 mg/dL Creatinine 2.14 H 0.550-1.02 mg/dL Glomerular Filtration Rate Calc 25 >90 mL/min BUN/Creatinine Ratio 39.3 H 10.0-20.0 Serum Glucose 126 H 74-106 mg/dL Calcium Level 8.9 8.7-10.4 mg/dL B-Type Natriuretic Peptide 207.44 0-100 pg/mL Lipase 178 H 12-53 U/L Assessment Acute kidney injury superimposed Chronic Kidney Disease secondary hemodynamic mediated Congestive heart failure exacerbation Pancytopenia Liver cirrhosis Acute pancreatitis high BUN creatinine likely due to GI bleeding Hyperkalemia Recommendations Closely monitor fluid and electrolytes Avoid nephrotoxic medications Strict I&Os I agree with diuresis Albumin 25% IV piggyback Low-dose dopamine Octreotide Midodrine Emergent medical treatment for hyperkalemia Packed red blood cell transfusion as needed GI consult Hematology consult Check urine electrolytes and protein excretion Check kidney ultrasound We will continue to follow Patient seen and examined by myself in the ER. I discussed my plan of care with the patient and primary nurse at the bedside I would like to thank Librado for the consult, will follow up Plan discussed with: Patient RAYNA BLAIR MD Aug 16, 2025 08:50
[2025-08-16] MEDS: SILDENAFIL CITRATE 20 MG TAB PO SCH (09:00)
[2025-08-16] MEDS: AZITHROMYCIN 500MG/250ML 250 ML IV SCH (09:01)
[2025-08-16] MEDS: FERROUS SULFATE 325mg EC TAB PO SCH (09:02)
[2025-08-16] MEDS: MIDODRINE HCL 10 MG TAB PO SCH (09:34)
[2025-08-16] MEDS: ALBUMIN 25% 100 ML IV SCH (09:36)
--- NOTE | 2025-08-16 09:45 | DVH ---
INDICATION: ezekiel TECHNIQUE: Multiple real-time sonographic images of the abdomen were obtained. COMPARISON: US ABDOMEN LIMITED on DOS: 06/10/25 FINDINGS: The liver is homogenous in echogenicity. No intrahepatic biliary ductal dilatation is noted. No hepatic masses were seen. The gallbladder wall measures 0.3 cm and is normal in size. Gallstones are noted. The common duct measures nonvisualized. The right kidney measures 9cm and is normal in size. The right renal echogenicity, contour and cortical thickness are within normal limits. No hydronephrosis or large masses are seen. The left kidney measures 10cm and is normal in size. The left renal echogenicity, contour, and cortical thickness are within normal limits. No hydronephrosis or large masses are seen. The spleen measures 18cm, within normal limits. The echogenicity is within normal limits. The pancreas is not well visualized. The visualized portions of the IVC and aorta are grossly unremarkable. IMPRESSION: Mild asites . Hepatosplenomegaly. Gallstones.
[2025-08-16 10:04] LABS: Magnesium 3.1 mg/dL (1.6-2.6)
[2025-08-16] MEDS: DOPamine 1600MCG/ML D5W 250 ML IV SCH (10:19)
[2025-08-16] MEDS: BUMETANIDE 1mg/4ml VIAL (0.25mg/ml) IV SCH (11:00)
--- NOTE | 2025-08-16 13:48 | DVHPN2 ---
Subjective some sob Reviewed: H&P Changes from previous H/P or p: No Changes Objective Vitals Vital Signs Date Time Temp Pulse Resp B/P (MAP) Pulse Ox O2 Delivery O2 Flow Rate FiO2 08/16/25 13:00 97.9 80 15 134/32 97.9 08/16/25 13:00 92 08/16/25 08:06 Nasal Cannula* 1 24 Intake/Output Intake and Output 08/16/25 07:00 Intake Total 350 ml Balance 350 ml Intake IV Total 350 ml General Appearance: Alert, Oriented X3 HEENT: Atraumatic Cardiovascular: Regular rate, Normal S1, Normal S2 Medications Current Medications Medications Dose Ordered Sig/Erum Route Start Time Stop Time Status Last Admin Dose Admin Nitroglycerin 0.4 mg Q5MINP PRN SL 08/15/25 20:45 Morphine Sulfate 2 mg Q30M PRN IV 08/15/25 20:45 Furosemide 20 mg BIDD IV 08/16/25 06:00 08/16/25 06:15 20 MG Carvedilol 6.25 mg Q12HR PO 08/15/25 22:00 08/16/25 09:01 6.25 MG Sildenafil Citrate 20 mg TID@08,14,20 PO 08/16/25 08:00 08/16/25 09:00 20 MG Ferrous Sulfate 325 mg BIDWM PO 08/16/25 08:00 08/16/25 09:02 325 MG Albuterol 2.5 mg Q6HPRN PRN NEB 08/15/25 21:45 08/16/25 00:17 2.5 MG Azithromycin 250 ml @ 125 mls/hr DAILY IV 08/16/25 10:00 08/16/25 09:01 125 MLS/HR Ondansetron HCl 4 mg Q4HP PRN IV 08/15/25 22:15 Acetaminophen 650 mg Q6HP PRN PO 08/15/25 22:15 Pantoprazole Sodium 40 mg DAILY@0600 PO 08/16/25 06:00 08/16/25 06:15 40 MG Dopamine HCl/ Dextrose 250 ml @ 9.975 mls/ hr Q24H IV 08/16/25 08:45 08/16/25 10:19 9.975 MLS/HR Albumin Human 100 ml @ 100 mls/hr Q8H IV 08/16/25 08:45 08/17/25 01:44 08/16/25 09:36 100 MLS/HR Octreotide Acetate 100 mcg TID SUBCUT 08/16/25 14:00 Midodrine 10 mg TID@0600,1200,1800 PO 08/16/25 09:00 08/16/25 09:34 10 MG Bumetanide 1 mg BIDD IV 08/16/25 11:00 08/16/25 11:00 1 MG Laboratory Results Laboratory Tests 08/16/25 03:21 Chemistry Test 08/15/25 19:17 08/16/25 03:21 Calcium Level 8.9 mg/dL (8.7-10.4) 9.0 mg/dL (8.7-10.4) Magnesium Level 3.1 mg/dL (1.6-2.6) H Phosphorus Level 5.0 mg/dL (2.4-5.1) Lipid panel Test 08/15/25 19:17 Lipase 178 U/L (12-53) H Cardiac Markers Test 08/15/25 19:17 B-Type Natriuretic Peptide 207.44 pg/mL (0-100) Urinalysis Test 08/16/25 04:10 Urine Color Colorless (Yellow) Urine Clarity Turbid (Clear) H Urine pH 5.0 (5.0-9.0) Urine Specific [place] 1.010 (1.001-1.035) Urine Protein Trace (Negative) H Urine Ketones Negative (Negative) Urine Blood 2+ /uL (Negative) H Urine Nitrite Negative (Negative) Urine Bilirubin Negative (Negative) Urine Urobilinogen Normal mg/dL (Negative) Urine Leukocyte Esterase 3+ /uL (Negative) Urine RBC 243 /hpf (0 - 4) Urine WBC Clumps Present /hpf (None Seen) Urine Microscopic WBC 285 /HPF (0-5) H Urine Squamous Epithelial Cells Few /hpf (<5) Urine Bacteria Few /hpf (None Seen) H Urine Hyaline Casts Many /lpf (0 - 2) Urine Glucose Normal mg/dL (Normal) Assessment/Plan Assessment/Plan Acute on chronic respiratory failure Acute on chronic renal failure Pulmonary hypertension Heart failure secondary to the above Questionable pneumonia Morbid obesity Pancytopenia Plan Admit the patient to telemetry to the hospitalist Nephrology consultation IV Lasix Resume home medications Continue treatment per orders. Plan discussed with: Patient Date of Service: Aug 16, 2025 Billing Provider: DOMENIC UP MD Common Visit Codes: [id number] INP/OBS CARE(HIGH) DOMENIC UP MD Aug 16, 2025 13:48
[2025-08-16] MEDS: OCTREOTIDE ACETATE 100 MCG/ML VL SUBCUT SCH (14:00)
[2025-08-16] MEDS: ACETAMINOPHEN 325 MG TAB PO PRN (22:11)
[2025-08-17] VITALS (17 sets, daily range): BP systolic 95–110; BP diastolic 35–72; PULSE 77–93; RESP 12–20; TEMP 97.1–98.3; O2SAT 92–100
[2025-08-17 00:18] LABS: Protein, Urine 30.8 mg/dL (1-14)
[2025-08-17] MEDS: ONDANSETRON HCL 4 MG/2 ML VIAL IV PRN (02:28)
[2025-08-17 06:27] LABS: Hemoglobin 7.1 g/dL (12.2-16.2)
[2025-08-17 06:31] LABS: Hematocrit 23.4 % (36.0-46.0)
[2025-08-17 06:35] LABS: Anion Gap 8 (5-15); Carbon Dioxide 27 mmol/L (20-31); Sodium 142 mmol/L (136-145)
[2025-08-17 06:36] LABS: Calcium 9.3 mg/dL (8.7-10.4)
[2025-08-17 06:41] LABS: BUN/Creatinine Ratio 37.9 (10.0-20.0)
[2025-08-17 06:48] LABS: Chloride 107 mmol/L (98-107); Glucose 124 mg/dL (74-106); Magnesium 3.0 mg/dL (1.6-2.6)
[2025-08-17 06:50] LABS: Blood Urea Nitrogen 80 mg/dL (9-23); Potassium 6.2 mmol/L (3.5-5.1)
[2025-08-17] MEDS: FUROSEMIDE 40 MG/4 ML VIAL IV ONE ×3 (08:28→17:17)
[2025-08-17] MEDS: InsuLIN REG 1unit/0.01ml Soln (100units/ml) IV ONE ×3 (09:45→23:27)
--- NOTE | 2025-08-17 09:55 | DVHPN2 ---
Progress Note Date Seen: Aug 17, 2025 Medical Necessity Reason Pt with a Central, PICC or Fol: No Subjective Patient reports: No new complaints Other Systems: Patient seen and examined by myself today in follow-up Objective vital signs Vital Sign Date Time Temp Pulse Resp B/P (MAP) Pulse Ox O2 Delivery O2 Flow Rate FiO2 08/17/25 09:00 98.3 93 14 105/59 (74) 98 98.3 08/17/25 07:59 Nasal Cannula* 6 44 Total Intake and Output 08/16/25 08/16/25 08/17/25 15:00 23:00 07:00 Intake Total 425 ml 629.925 ml 480 ml Output Total 200 ml 800 ml Balance 425 ml 429.925 ml -320 ml medications Current Medications Medications Dose Ordered Sig/Erum Route Start Time Stop Time Status Last Admin Dose Admin Nitroglycerin 0.4 mg Q5MINP PRN SL 08/15/25 20:45 Morphine Sulfate 2 mg Q30M PRN IV 08/15/25 20:45 Carvedilol 6.25 mg Q12HR PO 08/15/25 22:00 08/16/25 22:07 6.25 MG Sildenafil Citrate 20 mg TID@08,14,20 PO 08/16/25 08:00 08/16/25 09:00 20 MG Ferrous Sulfate 325 mg BIDWM PO 08/16/25 08:00 08/16/25 09:02 325 MG Albuterol 2.5 mg Q6HPRN PRN NEB 08/15/25 21:45 08/17/25 04:21 2.5 MG Azithromycin 250 ml @ 125 mls/hr DAILY IV 08/16/25 10:00 08/16/25 09:01 125 MLS/HR Ondansetron HCl 4 mg Q4HP PRN IV 08/15/25 22:15 08/17/25 05:44 4 MG Acetaminophen 650 mg Q6HP PRN PO 08/15/25 22:15 Pantoprazole Sodium 40 mg DAILY@0600 PO 08/16/25 06:00 08/17/25 05:32 40 MG Dopamine HCl/ Dextrose 250 ml @ 9.975 mls/ hr Q24H IV 08/16/25 08:45 08/16/25 10:19 9.975 MLS/HR Octreotide Acetate 100 mcg TID SUBCUT 08/16/25 14:00 08/16/25 14:00 100 MCG Bumetanide 1 mg BIDD IV 08/16/25 11:00 08/17/25 05:32 1 MG Zirconium Oxide 10 gm TID PO 08/17/25 14:00 08/19/25 06:01 UNV Midodrine 15 mg TID@0600,1200,1800 PO 08/17/25 10:00 UNV Examination: LUNGS:Normal, CVS:Normal, MSK:Abnormal laboratory and microbiology Laboratory Tests 08/17/25 06:04 08/16/25 03:21 Test 08/17/25 06:04 Range/Units Serum Glucose 124 H 74-106 mg/dL Problem List/Assessment/Plan Problem List/Assessment/Plan Acute kidney injury superimposed Chronic Kidney Disease secondary hemodynamic mediated, FeNa > 2% Acute respiratory failure, high flow oxygen Congestive heart failure exacerbation Hepatic encephalopathy Pancytopenia Liver cirrhosis Acute pancreatitis high BUN/creatinine ratio likely due to GI bleeding Secondary hyperparathyroidism Hyperphosphatemia Hyperkalemia Recommendations Kidney function slightly worsened today Increased urine output Strict I&Os Bumex 1 mg IV b.i.d. Albumin 25% IV piggyback Low-dose dopamine Octreotide 100 mcg subQ t.i.d. Midodrine 15 mg p.o. t.i.d. Calcitriol 0.25 mcg p.o. q.day Renvela 800 mg p.o. t.i.d. with meals Lactulose Emergent medical treatment for hyperkalemia Packed red blood cell transfusion as needed GI consult Hematology consult kidney ultrasound reported normal kidneys We will continue to follow Plan discussed with: Patient My Orders My Orders Orders - RAYNA BLAIR MD Procedure Category Date Status Time Potassium LAB 08/17/25 Logged 13:43 Insulin R (Human) PHA 08/17/25 Logged (Insulin R) 09:45 Dextrose 50% Syringe PHA 08/17/25 Logged 09:45 Albuterol Medneb PHA 08/17/25 Logged (Ventolin Medneb) 09:45 Furosemide Injection PHA 08/17/25 Logged (Lasix Injection) 09:45 Calcium Gluc PHA 08/17/25 Logged 1,000mg/50ml-Ns 09:45 Sodium Zirconium PHA 08/17/25 Logged Cyclosilicate 14:00 Renal Specific DIET 08/17/25 Transmitted Diet(Renal) Lunch Midodrine Tablet PHA 08/17/25 Logged (Proamatine Tablet) 10:00 CC Plasma Assessment Blood Product Administration S: [id number] RAYNA BLAIR MD Aug 17, 2025 09:55
[2025-08-17] MEDS: CALCIUM GLUC 1,000mg/50ml-NS 50 ML IV ONE ×3 (10:28→22:34)
[2025-08-17] MEDS: DEXTROSE (50%) 50ML SYRG IV ONE ×3 (10:29→23:25)
[2025-08-17] MEDS: ALBUTEROL SULF 2.5 MG/0.5ML(0.5%) NEB SOLN NEB ONE ×2 (10:29→16:52)
[2025-08-17] MEDS: CALCITRIOL 0.25 MCG CAP PO SCH (10:49)
[2025-08-17] MEDS: SODIUM ZIRCONIUM CYCL 10 GM PAK PO SCH ×2 (10:49→22:00)
[2025-08-17] MEDS: MIDODRINE HCL 10 MG TAB PO SCH (12:37)
[2025-08-17] MEDS: SEVELAMER 800 MG TAB PO SCH (12:43)
--- NOTE | 2025-08-17 12:59 | DVHPN2 ---
Subjective some sob Reviewed: H&P Changes from previous H/P or p: No Changes Objective Vitals Vital Signs Date Time Temp Pulse Resp B/P (MAP) Pulse Ox O2 Delivery O2 Flow Rate FiO2 08/17/25 10:42 113/60 08/17/25 10:39 85 16 98 08/17/25 10:29 Nasal Cannula* 6 44 08/17/25 09:00 98.3 98.3 Intake/Output Intake and Output 08/17/25 05:00 Intake Total 1534.925 ml Output Total 1000 ml Balance 534.925 ml Intake Oral 480 ml IV Total 125 ml Tube Feeding 0 ml Blood Product 900 ml Other 29.925 ml Output Urine Total 1000 ml Stool Total 0 ml Urine/Stool Mix 0 ml Gastric Drainage Total 0 ml Emesis 0 ml Chest Tube Drainage Total 0 ml Drainage Total 0 ml Blood Draw 0 ml Other 0 ml General Appearance: Alert, Oriented X3 HEENT: Atraumatic Cardiovascular: Regular rate, Normal S1, Normal S2 Medications Current Medications Medications Dose Ordered Sig/Erum Route Start Time Stop Time Status Last Admin Dose Admin Nitroglycerin 0.4 mg Q5MINP PRN SL 08/15/25 20:45 Morphine Sulfate 2 mg Q30M PRN IV 08/15/25 20:45 Carvedilol 6.25 mg Q12HR PO 08/15/25 22:00 08/16/25 22:07 6.25 MG Sildenafil Citrate 20 mg TID@08,14,20 PO 08/16/25 08:00 08/16/25 09:00 20 MG Ferrous Sulfate 325 mg BIDWM PO 08/16/25 08:00 08/16/25 09:02 325 MG Albuterol 2.5 mg Q6HPRN PRN NEB 08/15/25 21:45 08/17/25 04:21 2.5 MG Azithromycin 250 ml @ 125 mls/hr DAILY IV 08/16/25 10:00 08/17/25 10:47 125 MLS/HR Ondansetron HCl 4 mg Q4HP PRN IV 08/15/25 22:15 08/17/25 05:44 4 MG Acetaminophen 650 mg Q6HP PRN PO 08/15/25 22:15 Pantoprazole Sodium 40 mg DAILY@0600 PO 08/16/25 06:00 08/17/25 05:32 40 MG Dopamine HCl/ Dextrose 250 ml @ 9.975 mls/ hr Q24H IV 08/16/25 08:45 08/16/25 10:19 9.975 MLS/HR Octreotide Acetate 100 mcg TID SUBCUT 08/16/25 14:00 08/16/25 14:00 100 MCG Bumetanide 1 mg BIDD IV 08/16/25 11:00 08/17/25 05:32 1 MG Zirconium Oxide 10 gm TID PO 08/17/25 14:00 08/19/25 06:01 08/17/25 10:49 10 GM Midodrine 15 mg TID@0600,1200,1800 PO 08/17/25 12:00 08/17/25 12:37 15 MG Sevelamer HCl 800 mg TIDWM PO 08/17/25 12:00 08/17/25 12:43 800 MG Calcitriol 0.25 mcg DAILY PO 08/17/25 10:00 08/17/25 10:49 0.25 MCG Laboratory Results Laboratory Tests 08/16/25 03:21 08/17/25 06:04 Chemistry Test 08/17/25 06:04 Calcium Level 9.3 mg/dL (8.7-10.4) Magnesium Level 3.0 mg/dL (1.6-2.6) H Urinalysis Test 08/16/25 04:10 Urine Color Colorless (Yellow) Urine Clarity Turbid (Clear) H Urine pH 5.0 (5.0-9.0) Urine Specific [place] 1.010 (1.001-1.035) Urine Protein Trace (Negative) H Urine Ketones Negative (Negative) Urine Blood 2+ /uL (Negative) H Urine Nitrite Negative (Negative) Urine Bilirubin Negative (Negative) Urine Urobilinogen Normal mg/dL (Negative) Urine Leukocyte Esterase 3+ /uL (Negative) Urine RBC 243 /hpf (0 - 4) Urine WBC Clumps Present /hpf (None Seen) Urine Microscopic WBC 285 /HPF (0-5) H Urine Squamous Epithelial Cells Few /hpf (<5) Urine Bacteria Few /hpf (None Seen) H Urine Hyaline Casts Many /lpf (0 - 2) Urine Creatinine 50.59 mg/dL (30.0-125.0) Urine Protein/Creatinine Ratio 0.61 Urine Sodium 46 mmol/L (40-220) Urine Glucose Normal mg/dL (Normal) Urine Total Protein 30.8 mg/dL (1-14) H Assessment/Plan Assessment/Plan Acute on chronic respiratory failure Acute on chronic renal failure Pulmonary hypertension Heart failure secondary to the above Questionable pneumonia Morbid obesity Pancytopenia Plan Nephrology consultation IV Lasix Resume home medications Continue treatment per orders. 08/17 hyperkalemia, getting lasix Plan discussed with: Patient Date of Service: Aug 17, 2025 Billing Provider: DOMENIC UP MD Common Visit Codes: [id number] INP/OBS CARE(HIGH) DOMENIC UP MD Aug 17, 2025 12:59
[2025-08-17] MEDS: SODIUM BICARB 8.4% 50Meq/50ml SYR INJ IV ONE (17:05)
[2025-08-17] MEDS: ALBUTEROL SULF 2.5 MG/0.5ML(0.5%) NEB SOLN ONE (17:05)
[2025-08-17] MEDS: BUMETANIDE 1mg/4ml VIAL (0.25mg/ml) IV SCH (17:14)
[2025-08-17] MEDS ORDERED: SODIUM ZIRCONIUM CYCL 10 GM PAK PO ONE (21:30)
[2025-08-17] MEDS: SODIUM BICARB 8.4% 50Meq/50ml SYR Vial IV ONE (22:18)
[2025-08-18] VITALS (68 sets, daily range): BP systolic 94–131; BP diastolic 20–101; PULSE 79–110; RESP 13–30; TEMP 97.4–99.1; O2SAT 88–98
[2025-08-18 09:43] LABS: Base Excess -3.8 mmol/L (-2.0-3.0)
[2025-08-18 09:54] LABS: Hemoglobin 7.3 g/dL (12.2-16.2); Mean Corpuscular Volume 87.6 fL (80.0-100.0); Nucleated Red Blood Cells % 0.1 %
[2025-08-18 09:57] LABS: Hematocrit 24.6 % (36.0-46.0); Mean Corpuscular Hemoglobin 26.0 pg (28.0-32.0)
[2025-08-18 10:16] LABS: Alkaline Phosphatase 53 U/L (46-116); Anion Gap 12 (5-15); BUN/Creatinine Ratio 25.2 (10.0-20.0); Calcium 9.4 mg/dL (8.7-10.4); Carbon Dioxide 24 mmol/L (20-31); Chloride 106 mmol/L (98-107); Sodium 142 mmol/L (136-145); Total Protein 7.8 g/dL (5.7-8.2)
[2025-08-18 10:17] LABS: Albumin 4.5 g/dL (3.2-4.8); Bilirubin, Total 0.9 mg/dL (0.2-1.0)
[2025-08-18 10:18] LABS: Alanine Aminotransferase < 9 U/L (7-40); Blood Urea Nitrogen 73 mg/dL (9-23); Glucose 114 mg/dL (74-106)
[2025-08-18 10:19] LABS: Potassium 6.1 mmol/L (3.5-5.1)
[2025-08-18 10:22] LABS: INR 1.29 (0.9-1.15); Partial Thromboplastin Time 28.1 SEC (24.5-34.5); Prothrombin Time 13.3 sec (9.3-11.8)
--- NOTE | 2025-08-18 12:04 | DVHPN2 ---
Progress Note Date Seen: Aug 18, 2025 Medical Necessity Reason Pt with a Central, PICC or Fol: No Subjective Review of Systems: RESPIRATORY:Abnormal Other Systems: Patient seen and examined by myself today in f/u Patient transferred to ICU on BiPAP Objective vital signs Vital Sign Date Time Temp Pulse Resp B/P (MAP) Pulse Ox O2 Delivery O2 Flow Rate FiO2 08/18/25 11:04 88 106/47 92 Facial BiPAP Mask 35 08/18/25 10:00 4.0 08/18/25 08:39 98.1 19 98.1 Total Intake and Output 08/17/25 08/17/25 08/18/25 15:00 23:00 07:00 Intake Total 300 ml 290 ml 0 ml Output Total 300 ml 200 ml Balance 300 ml -10 ml -200 ml medications Current Medications Medications Dose Ordered Sig/Erum Route Start Time Stop Time Status Last Admin Dose Admin Nitroglycerin 0.4 mg Q5MINP PRN SL 08/15/25 20:45 Hold Morphine Sulfate 2 mg Q30M PRN IV 08/15/25 20:45 Carvedilol 6.25 mg Q12HR PO 08/15/25 22:00 08/16/25 22:07 6.25 MG Sildenafil Citrate 20 mg TID@08,14,20 PO 08/16/25 08:00 08/17/25 15:13 20 MG Ferrous Sulfate 325 mg BIDWM PO 08/16/25 08:00 08/17/25 17:10 325 MG Albuterol 2.5 mg Q6HPRN PRN NEB 08/15/25 21:45 08/17/25 04:21 2.5 MG Azithromycin 250 ml @ 125 mls/hr DAILY IV 08/16/25 10:00 08/18/25 11:50 125 MLS/HR Ondansetron HCl 4 mg Q4HP PRN IV 08/15/25 22:15 08/17/25 05:44 4 MG Acetaminophen 650 mg Q6HP PRN PO 08/15/25 22:15 Pantoprazole Sodium 40 mg DAILY@0600 PO 08/16/25 06:00 08/17/25 05:32 40 MG Dopamine HCl/ Dextrose 250 ml @ 9.975 mls/ hr Q24H IV 08/16/25 08:45 08/18/25 08:51 9.975 MLS/HR Octreotide Acetate 100 mcg TID SUBCUT 08/16/25 14:00 08/17/25 15:13 100 MCG Midodrine 15 mg TID@0600,1200,1800 PO 08/17/25 12:00 08/17/25 17:08 15 MG Sevelamer HCl 800 mg TIDWM PO 08/17/25 12:00 08/17/25 17:08 800 MG Calcitriol 0.25 mcg DAILY PO 08/17/25 10:00 08/17/25 10:49 0.25 MCG Zirconium Oxide 10 gm TID PO 08/17/25 22:00 08/19/25 14:01 Bumetanide 2 mg BIDD IV 08/17/25 16:30 08/18/25 06:00 2 MG Examination: LUNGS:Normal, CVS:Normal, MSK:Abnormal laboratory and microbiology Laboratory Tests 08/18/25 09:35 Test 08/18/25 09:35 Range/Units Serum Glucose 114 H 74-106 mg/dL Microbiology Date/Time Source Procedure Growth Status 08/16/25 04:10 Urine - [place] Urine Culture - Preliminary Resulted Problem List/Assessment/Plan Problem List/Assessment/Plan Acute kidney injury superimposed Chronic Kidney Disease secondary hemodynamic mediated, FeNa > 2% Acute respiratory failure, BIPAP Congestive heart failure exacerbation Hepatic encephalopathy Pancytopenia Liver cirrhosis Acute pancreatitis high BUN/creatinine ratio likely due to GI bleeding Secondary hyperparathyroidism Hyperphosphatemia Hyperkalemia, Recommendations Kidney function slightly worsened today Increased urine output Consents for tunnel HD catheter and HD HD after catheter placement Strict I&Os Bumex 1 mg IV b.i.d. Albumin 25% IV piggyback Low-dose dopamine Octreotide 100 mcg subQ t.i.d. Midodrine 15 mg p.o. t.i.d. Calcitriol 0.25 mcg p.o. q.day Renvela 800 mg p.o. t.i.d. with meals Lactulose Emergent medical treatment for hyperkalemia Packed red blood cell transfusion as needed GI consult Hematology consult kidney ultrasound reported normal kidneys We will continue to follow Plan discussed with: Patient My Orders My Orders Orders - RAYNA BLAIR MD Procedure Category Date Status Time Sodium Zirconium PHA 08/17/25 In Process Cyclosilicate 22:00 Bumetanide Injection PHA 08/17/25 In Process (Bumex Injection) 16:30 Obtain Consent For: ORDERS 08/18/25 Transmitted 11:54 * Radiologist Consult CONS 08/18/25 Transmitted 11:54 Creatine Kinase LAB 08/18/25 Transmitted 11:54 CC Plasma Assessment Blood Product Administration S: [id number] RAYNA BLAIR MD Aug 18, 2025 12:04
[2025-08-18] MEDS: ALBUTEROL SULF 2.5 MG/0.5ML(0.5%) NEB SOLN NEB ONE ×2 (12:15→18:37)
[2025-08-18 12:17] LABS: Base Excess -3.3 mmol/L (-2.0-3.0)
[2025-08-18] MEDS: DEXTROSE (50%) 50ML SYRG IV ONE ×2 (12:52→17:38)
[2025-08-18] MEDS: SODIUM BICARB 8.4% 50Meq/50ml SYR INJ IV ONE (12:52)
[2025-08-18] MEDS: NOREPINEPHRINE 8 MG/250ML KIT 250 ML IV SCH ×2 (12:54→17:15)
[2025-08-18] MEDS: CALCIUM GLUC 1,000mg/50ml-NS 50 ML IV ONE (12:54)
[2025-08-18] MEDS: InsuLIN REG 1unit/0.01ml Soln (100units/ml) IV ONE ×2 (12:57→17:39)
[2025-08-18] MEDS: FUROSEMIDE 40 MG/4 ML VIAL IV ONE (13:31)
[2025-08-18 14:08] LABS: Base Excess -3.1 mmol/L (-2.0-3.0)
[2025-08-18] MEDS: SODIUM ZIRCONIUM CYCL 10 GM PAK PO SCH (14:37)
--- NOTE | 2025-08-18 15:21 | DVHPN2 ---
Subjective some sob and lethargic today Reviewed: H&P Changes from previous H/P or p: No Changes Objective Vitals Vital Signs Date Time Temp Pulse Resp B/P (MAP) Pulse Ox O2 Delivery O2 Flow Rate FiO2 08/18/25 13:31 112/56 08/18/25 12:50 81 23 92 08/18/25 12:25 Facial BiPAP Mask 30 08/18/25 10:00 4.0 08/18/25 08:39 98.1 98.1 Intake/Output Intake and Output 08/18/25 07:00 Intake Total 590 ml Output Total 500 ml Balance 90 ml Intake Oral 240 ml IV Total 350 ml Output Urine Total 500 ml General Appearance: Alert, Oriented X3 HEENT: Atraumatic Cardiovascular: Regular rate, Normal S1, Normal S2 Medications Current Medications Medications Dose Ordered Sig/Erum Route Start Time Stop Time Status Last Admin Dose Admin Nitroglycerin 0.4 mg Q5MINP PRN SL 08/15/25 20:45 Hold Morphine Sulfate 2 mg Q30M PRN IV 08/15/25 20:45 Carvedilol 6.25 mg Q12HR PO 08/15/25 22:00 Hold 08/16/25 22:07 6.25 MG Sildenafil Citrate 20 mg TID@08,14,20 PO 08/16/25 08:00 08/17/25 15:13 20 MG Ferrous Sulfate 325 mg BIDWM PO 08/16/25 08:00 08/17/25 17:10 325 MG Albuterol 2.5 mg Q6HPRN PRN NEB 08/15/25 21:45 08/17/25 04:21 2.5 MG Azithromycin 250 ml @ 125 mls/hr DAILY IV 08/16/25 10:00 08/18/25 11:50 125 MLS/HR Ondansetron HCl 4 mg Q4HP PRN IV 08/15/25 22:15 08/18/25 14:37 4 MG Acetaminophen 650 mg Q6HP PRN PO 08/15/25 22:15 Pantoprazole Sodium 40 mg DAILY@0600 PO 08/16/25 06:00 08/17/25 05:32 40 MG Dopamine HCl/ Dextrose 250 ml @ 9.975 mls/ hr Q24H IV 08/16/25 08:45 08/18/25 08:51 9.975 MLS/HR Octreotide Acetate 100 mcg TID SUBCUT 08/16/25 14:00 08/18/25 14:36 100 MCG Midodrine 15 mg TID@0600,1200,1800 PO 08/17/25 12:00 08/17/25 17:08 15 MG Sevelamer HCl 800 mg TIDWM PO 08/17/25 12:00 08/17/25 17:08 800 MG Calcitriol 0.25 mcg DAILY PO 08/17/25 10:00 08/17/25 10:49 0.25 MCG Bumetanide 2 mg BIDD IV 08/17/25 16:30 08/18/25 06:00 2 MG Norepinephrine Bitartrate 250 ml @ 3.75 mls/hr Q24H IV 08/18/25 12:15 08/18/25 12:54 3.75 MLS/HR Zirconium Oxide 10 gm TID PO 08/18/25 14:00 08/20/25 06:01 Laboratory Results Laboratory Tests 08/18/25 09:35 Chemistry Test 08/18/25 09:35 Albumin 4.5 g/dL (3.2-4.8) Calcium Level 9.4 mg/dL (8.7-10.4) Magnesium Level 3.1 mg/dL (1.6-2.6) H Total Protein 7.8 g/dL (5.7-8.2) Coagulation Test 08/18/25 09:35 Prothrombin Time 13.3 sec (9.3-11.8) H Prothrombin Time INR 1.29 (0.9-1.15) H Activated Partial Thromboplast Time 28.1 SEC (24.5-34.5) LFT Test 08/18/25 09:35 Alanine Aminotransferase (ALT) < 9 U/L (7-40) Alkaline Phosphatase 53 U/L (46-116) Aspartate Amino Transferase (AST) 17 U/L (13-40) Total Bilirubin 0.9 mg/dL (0.2-1.0) Urinalysis Test 08/16/25 04:10 Urine Color Colorless (Yellow) Urine Clarity Turbid (Clear) H Urine pH 5.0 (5.0-9.0) Urine Specific [place] 1.010 (1.001-1.035) Urine Protein Trace (Negative) H Urine Ketones Negative (Negative) Urine Blood 2+ /uL (Negative) H Urine Nitrite Negative (Negative) Urine Bilirubin Negative (Negative) Urine Urobilinogen Normal mg/dL (Negative) Urine Leukocyte Esterase 3+ /uL (Negative) Urine RBC 243 /hpf (0 - 4) Urine WBC Clumps Present /hpf (None Seen) Urine Microscopic WBC 285 /HPF (0-5) H Urine Squamous Epithelial Cells Few /hpf (<5) Urine Bacteria Few /hpf (None Seen) H Urine Hyaline Casts Many /lpf (0 - 2) Urine Creatinine 50.59 mg/dL (30.0-125.0) Urine Protein/Creatinine Ratio 0.61 Urine Sodium 46 mmol/L (40-220) Urine Glucose Normal mg/dL (Normal) Urine Total Protein 30.8 mg/dL (1-14) H Blood Gas Results Test 08/18/25 09:32 08/18/25 12:08 08/18/25 14:00 Arterial Blood pH 7.218 (7.350-7.450) 7.196 (7.350-7.450) 7.237 (7.350-7.450) FiO2 % 32.0 35.0 30.0 Microbiology Microbiology Date/Time Source Procedure Growth Status 08/16/25 04:10 Urine - [place] Urine Culture - Preliminary Resulted Assessment/Plan Assessment/Plan Acute on chronic respiratory failure Acute on chronic renal failure Pulmonary hypertension Heart failure secondary to the above Questionable pneumonia Morbid obesity Pancytopenia Plan Nephrology consultation IV Lasix Resume home medications Continue treatment per orders. 12 hyperkalemia, getting lasix 08/18 More hypoxic and lethargic, K 6.1 creat worse 2.9 transferred to ICU on bipap nephrology planning on HD emergently Consult pulmonary Critical care time 79 minutes Plan discussed with: Patient My Orders Orders - DOMENIC UP MD Procedure Category Date Status Time Transfer Orders XFER 08/18/25 Transmitted 09:32 BIPAP RT 08/18/25 Logged 11:00 Abg W/ Co-Ox RT 08/18/25 Logged 12:00 *Consult CONS 08/18/25 Transmitted 13:03 Mrsa Screen APRYL 08/18/25 In Process 10:55 Abg W/ Co-Ox RT 08/18/25 Logged 14:00 Date of Service: Aug 18, 2025 Billing Provider: DOMENIC UP MD Common Visit Codes: [id number] CARE 30-74 MIN DOMENIC UP MD Aug 18, 2025 15:21
[2025-08-18] MEDS: SODIUM BICARB 8.4% 50Meq/50ml SYR Vial IV ONE (17:37)
[2025-08-18] MEDS: BUMETANIDE INJECTION 12.5 MG in GIVE UN-DILUTED 0 ML IV SCH (18:21)
--- NOTE | 2025-08-18 23:59 | DVHPN2 ---
Subjective DOS: 08/18/2025 Patient seen and examined at bedside. Currently on BiPAP Overnight events reviewed. Reviewed: H&P Changes from previous H/P or p: No Changes Objective Vitals Vital Signs Date Time Temp Pulse Resp B/P (MAP) Pulse Ox O2 Delivery O2 Flow Rate FiO2 08/18/25 22:36 99 22 115/46 94 35.0 08/18/25 22:22 Nasal BiPAP Mask 35 08/18/25 16:15 98.2 98.2 Intake/Output Intake and Output 08/18/25 07:00 Intake Total 590 ml Output Total 500 ml Balance 90 ml Intake Oral 240 ml IV Total 350 ml Output Urine Total 500 ml Exam Gen.: Patient lying in bed in no apparent distress. On BiPAP Head: Normocephalic, atraumatic. Eyes: EOMI/PERRLA. Ears: Normal hearing. Normal anatomy. Neck/trachea: Trachea midline, supple. Nose: Normal external anatomy. Mouth: Moist mucous membranes. Chest: Decreased air entry bilaterally. No wheezing or rhonchi. Cardiovascular: Positive S1, positive S2. Regular rate and rhythm. Abdomen: Positive bowel sounds in all 4 quadrants. Soft, non-tender, non- distended. : Deferred. Rectal: Deferred. Skin: Warm, dry. Intact. Extremities: 2+ radial pulses bilaterally. No lower extremity edema. Neuro: Awake, alert, oriented x3. No gross motor or sensory deficits. Cranial nerves II through XII intact. Gait not assessed. General Appearance: Alert, Oriented X3 HEENT: Atraumatic Cardiovascular: Regular rate, Normal S1, Normal S2 Medications Current Medications Medications Dose Ordered Sig/Erum Route Start Time Stop Time Status Last Admin Dose Admin Nitroglycerin 0.4 mg Q5MINP PRN SL 08/15/25 20:45 Hold Morphine Sulfate 2 mg Q30M PRN IV 08/15/25 20:45 Carvedilol 6.25 mg Q12HR PO 08/15/25 22:00 Hold 08/16/25 22:07 6.25 MG Sildenafil Citrate 20 mg TID@08,14,20 PO 08/16/25 08:00 08/17/25 15:13 20 MG Ferrous Sulfate 325 mg BIDWM PO 08/16/25 08:00 08/17/25 17:10 325 MG Albuterol 2.5 mg Q6HPRN PRN NEB 08/15/25 21:45 08/17/25 04:21 2.5 MG Azithromycin 250 ml @ 125 mls/hr DAILY IV 08/16/25 10:00 08/18/25 11:50 125 MLS/HR Ondansetron HCl 4 mg Q4HP PRN IV 08/15/25 22:15 08/18/25 14:37 4 MG Acetaminophen 650 mg Q6HP PRN PO 08/15/25 22:15 Pantoprazole Sodium 40 mg DAILY@0600 PO 08/16/25 06:00 08/17/25 05:32 40 MG Dopamine HCl/ Dextrose 250 ml @ 9.975 mls/ hr Q24H IV 08/16/25 08:45 08/18/25 08:51 9.975 MLS/HR Octreotide Acetate 100 mcg TID SUBCUT 08/16/25 14:00 08/18/25 22:03 100 MCG Midodrine 15 mg TID@0600,1200,1800 PO 08/17/25 12:00 08/17/25 17:08 15 MG Sevelamer HCl 800 mg TIDWM PO 08/17/25 12:00 08/17/25 17:08 800 MG Calcitriol 0.25 mcg DAILY PO 08/17/25 10:00 08/17/25 10:49 0.25 MCG Zirconium Oxide 10 gm TID PO 08/18/25 14:00 08/20/25 06:01 Norepinephrine Bitartrate 250 ml @ 3.75 mls/hr Q24H IV 08/18/25 17:15 Bumetanide 12.5 mg/Miscellaneous 50 ml @ 2 mls/hr Q24H IV 08/18/25 17:15 08/18/25 18:21 2 MLS/HR Lactulose 300 ml Q6HR MS 08/19/25 00:00 Laboratory Results Laboratory Tests 08/18/25 09:35 08/18/25 21:33 Chemistry Test 08/18/25 09:35 Albumin 4.5 g/dL (3.2-4.8) Calcium Level 9.4 mg/dL (8.7-10.4) Magnesium Level 3.1 mg/dL (1.6-2.6) H Total Protein 7.8 g/dL (5.7-8.2) Coagulation Test 08/18/25 09:35 Prothrombin Time 13.3 sec (9.3-11.8) H Prothrombin Time INR 1.29 (0.9-1.15) H Activated Partial Thromboplast Time 28.1 SEC (24.5-34.5) LFT Test 08/18/25 09:35 Alanine Aminotransferase (ALT) < 9 U/L (7-40) Alkaline Phosphatase 53 U/L (46-116) Aspartate Amino Transferase (AST) 17 U/L (13-40) Total Bilirubin 0.9 mg/dL (0.2-1.0) Urinalysis Test 08/16/25 04:10 Urine Color Colorless (Yellow) Urine Clarity Turbid (Clear) H Urine pH 5.0 (5.0-9.0) Urine Specific [place] 1.010 (1.001-1.035) Urine Protein Trace (Negative) H Urine Ketones Negative (Negative) Urine Blood 2+ /uL (Negative) H Urine Nitrite Negative (Negative) Urine Bilirubin Negative (Negative) Urine Urobilinogen Normal mg/dL (Negative) Urine Leukocyte Esterase 3+ /uL (Negative) Urine RBC 243 /hpf (0 - 4) Urine WBC Clumps Present /hpf (None Seen) Urine Microscopic WBC 285 /HPF (0-5) H Urine Squamous Epithelial Cells Few /hpf (<5) Urine Bacteria Few /hpf (None Seen) H Urine Hyaline Casts Many /lpf (0 - 2) Urine Creatinine 50.59 mg/dL (30.0-125.0) Urine Protein/Creatinine Ratio 0.61 Urine Sodium 46 mmol/L (40-220) Urine Glucose Normal mg/dL (Normal) Urine Total Protein 30.8 mg/dL (1-14) H Blood Gas Results Test 08/18/25 09:32 08/18/25 12:08 08/18/25 14:00 Arterial Blood pH 7.218 (7.350-7.450) 7.196 (7.350-7.450) 7.237 (7.350-7.450) FiO2 % 32.0 35.0 30.0 Microbiology Microbiology Date/Time Source Procedure Growth Status 08/16/25 04:10 Urine - [place] Urine Culture - Preliminary Resulted Assessment/Plan Assessment/Plan Impression: Acute on chronic hypoxic respiratory failure On NIPPV Pulmonary hypertension Congestive heart failure Morbid obesity Acute on chronic renal failure Pancytopenia Plan: Patient is more hypoxic and lethargic Transferred to ICU on BiPAP Nephrology planning on HD emergently Continue on BiPAP Titrate to keep O2 sats above 92%. Monitor respiratory status closely ABG reviewed, notable for acidemia Continue bronchodilators. Continue antibiotics Follow up Nephrology recs - plan for HD Diurese with Lasix as tolerated Monitor renal function. Monitor electrolytes. Supplement as necessary. Monitor hyperkalemia - K 6.1 Monitor ins and outs. DVT prophylaxis. Prognosis: Poor given patient's multiple co-morbidities. Condition: Critical Rest of plan per hospitalist and other consultants. A total of 35 minutes of critical care time was spent reviewing the patient record, examining the patient, making a diagnostic and therapeutic plan, discussing this plan with the medical personnel, following up on diagnostic studies and following the patient for clinical stability excluding any and all procedures. At least 50% of this time was spent in direct, [id number] contact. Thank you, Dr. Longo, for allowing me to participate in this patient's care. Further recommendations will depend on the patient's clinical course. Please do not hesitate to contact me if you have any questions or concerns. This medical document was created using an electronic medical record system with [employer] computerized dictation system. Although these documentations are being carefully reviewed, there may still be some phonetic and typographical changes. The errors are purely typographical, due to imperfection on the software program, and do not reflect any compromise in the patient's medical care. Plan discussed with: Other (RYAN Bower) Visit Coding Pulmonary Billing Provider: SILVIA RIVAS MD Date of Service if different f: Aug 18, 2025 Common Visit Codes: [id number] INP/OBS CARE(HIGH), [id number] CARE 30-74 MIN SILVIA RIVAS MD Aug 18, 2025 23:59
[2025-08-19] VITALS (115 sets, daily range): BP systolic 62–135; BP diastolic 21–97; PULSE 81–139; RESP 9–27; TEMP 97.6–99; O2SAT 88–100
[2025-08-19] MEDS: LACTULOSE 10g/15ml SOLN 473ML PR SCH
[2025-08-19 04:11] LABS: Hematocrit 25.2 % (36.0-46.0); Hemoglobin 7.7 g/dL (12.2-16.2); Mean Corpuscular Hemoglobin 26.3 pg (28.0-32.0); Mean Corpuscular Volume 86.2 fL (80.0-100.0); Nucleated Red Blood Cells % 0.3 %
[2025-08-19 04:39] LABS: Albumin 4.3 g/dL (3.2-4.8); Alkaline Phosphatase 52 U/L (46-116); Anion Gap 13 (5-15); BUN/Creatinine Ratio 30.6 (10.0-20.0); Calcium 9.3 mg/dL (8.7-10.4); Carbon Dioxide 26 mmol/L (20-31); Chloride 105 mmol/L (98-107); Sodium 144 mmol/L (136-145); Total Protein 7.4 g/dL (5.7-8.2)
[2025-08-19 04:46] LABS: Alanine Aminotransferase < 9 U/L (7-40); Bilirubin, Total 1.3 mg/dL (0.2-1.0); Glucose 145 mg/dL (74-106); Magnesium 3.0 mg/dL (1.6-2.6)
[2025-08-19 04:47] LABS: Blood Urea Nitrogen 91 mg/dL (9-23); Potassium 5.8 mmol/L (3.5-5.1)
[2025-08-19] MEDS: MORPHINE SULFATE 4 MG/ML SYR/VIAL IV ONE (08:05)
[2025-08-19] MEDS: MORPHINE SULFATE INJ 2 MG/ml SYRG ONE (08:22)
--- NOTE | 2025-08-19 08:56 | DVHNC2 ---
Procedure - Temporary dialysis catheter placement After obtaining consent patient, attempt was made to place a temporary HD catheter right IJ while able to cannula length of vein, difficulty was advancing wire passed 15 cm. Patient also continued to move her right upper extremity procedure. Decision was made to attempt placement to right femoral vein. Severe difficulty found tremendous amount of adipose as well as macerated groin. After sterilizing the area and medication the patient with morphine 2 mg, patient continued to complain and move her lower extremity. Decision was made to abort Procedure given patient inability to maintain proper positioning and follow commands procedure. ALBINO STEVENS ASSOCIATE PROFESSOR OF GEOLOGY Aug 19, 2025 08:56
[2025-08-19] MEDS ORDERED: MORPHINE SULFATE 4 MG/ML SYR/VIAL IV PRN (09:15)
[2025-08-19] MEDS: BUMETANIDE INJECTION 12.5 MG in GIVE UN-DILUTED 0 ML IV SCH (09:30)
[2025-08-19] MEDS: PANTOPRAZOLE 40 MG/10 ML VIAL INJ IV SCH (10:00)
[2025-08-19 10:17] LABS: Base Excess -0.6 mmol/L (-2.0-3.0)
--- NOTE | 2025-08-19 11:23 | DVHPN2 ---
Progress Note Date Seen: Aug 19, 2025 Medical Necessity Reason Pt with a Central, PICC or Fol: No Subjective Review of Systems: RESPIRATORY:Abnormal Other Systems: Patient seen and examined by myself today in follow-up, patient remained high flow oxygen/BiPAP Objective vital signs Vital Sign Date Time Temp Pulse Resp B/P (MAP) Pulse Ox O2 Delivery O2 Flow Rate FiO2 08/19/25 10:47 97 Nasal Cannula 1.0 08/19/25 10:47 24 08/19/25 10:25 101 120/47 08/19/25 09:45 15 08/19/25 08:00 98.2 98.2 Total Intake and Output 08/18/25 08/18/25 08/19/25 15:00 23:00 07:00 Intake Total 336.375 ml 111.425 ml 70 ml Output Total 450 ml 1400 ml Balance 336.375 ml -338.575 ml -1330 ml medications Current Medications Medications Dose Ordered Sig/Erum Route Start Time Stop Time Status Last Admin Dose Admin Nitroglycerin 0.4 mg Q5MINP PRN SL 08/15/25 20:45 Hold Carvedilol 6.25 mg Q12HR PO 08/15/25 22:00 Hold 08/16/25 22:07 6.25 MG Sildenafil Citrate 20 mg TID@08,14,20 PO 08/16/25 08:00 08/17/25 15:13 20 MG Ferrous Sulfate 325 mg BIDWM PO 08/16/25 08:00 08/17/25 17:10 325 MG Albuterol 2.5 mg Q6HPRN PRN NEB 08/15/25 21:45 08/17/25 04:21 2.5 MG Azithromycin 250 ml @ 125 mls/hr DAILY IV 08/16/25 10:00 08/18/25 11:50 125 MLS/HR Ondansetron HCl 4 mg Q4HP PRN IV 08/15/25 22:15 08/19/25 06:35 4 MG Acetaminophen 650 mg Q6HP PRN PO 08/15/25 22:15 Dopamine HCl/ Dextrose 250 ml @ 9.975 mls/ hr Q24H IV 08/16/25 08:45 08/19/25 02:49 9.975 MLS/HR Octreotide Acetate 100 mcg TID SUBCUT 08/16/25 14:00 08/19/25 06:42 100 MCG Midodrine 15 mg TID@0600,1200,1800 PO 08/17/25 12:00 08/17/25 17:08 15 MG Sevelamer HCl 800 mg TIDWM PO 08/17/25 12:00 08/17/25 17:08 800 MG Calcitriol 0.25 mcg DAILY PO 08/17/25 10:00 08/17/25 10:49 0.25 MCG Zirconium Oxide 10 gm TID PO 08/18/25 14:00 08/20/25 06:01 Norepinephrine Bitartrate 250 ml @ 3.75 mls/hr Q24H IV 08/18/25 17:15 08/19/25 02:49 18.75 MLS/HR Lactulose 300 ml Q6HR NH 08/19/25 00:00 08/19/25 00:00 300 ML Morphine Sulfate 2 mg Q30M PRN IV 08/19/25 09:15 Pantoprazole Sodium 40 mg BID IV 08/19/25 10:00 Bumetanide 12.5 mg/Miscellaneous 50 ml @ 4 mls/hr [id number] IV 08/19/25 09:30 Examination: LUNGS:Normal, CVS:Normal, MSK:Abnormal laboratory and microbiology Laboratory Tests 08/19/25 03:25 Test 08/19/25 03:25 Range/Units Serum Glucose 145 H 74-106 mg/dL Microbiology Date/Time Source Procedure Growth Status 08/16/25 04:10 Urine - [place] Urine Culture - Preliminary Resulted Problem List/Assessment/Plan Problem List/Assessment/Plan Acute kidney injury superimposed Chronic Kidney Disease secondary hemodynamic mediated, FeNa > 2% Acute respiratory failure, BIPAP Congestive heart failure exacerbation Hepatic encephalopathy Pancytopenia Liver cirrhosis Acute pancreatitis high BUN/creatinine ratio likely due to GI bleeding Secondary hyperparathyroidism Hyperphosphatemia Persistent hyperkalemia resistant to medical treatment Recommendations Continue with gentle 1st hemodialysis Use no heparin Strict I&Os Discontinue Bumex drip Albumin 25% IV piggyback Low-dose dopamine Octreotide 100 mcg subQ t.i.d. Midodrine 15 mg p.o. t.i.d. Calcitriol 0.25 mcg p.o. q.day Renvela 800 mg p.o. t.i.d. with meals Lactulose Emergent medical treatment for hyperkalemia Packed red blood cell transfusion as needed GI consult Hematology consult kidney ultrasound reported normal kidneys We will continue to follow I discussed my plan of care with the son and the daughter at the bedside Plan discussed with: Patient, Daughter, Son My Orders My Orders Orders - RAYNA BLAIR MD Procedure Category Date Status Time Obtain Consent For: ORDERS 08/18/25 Transmitted 11:54 * Radiologist Consult CONS 08/18/25 Transmitted 11:54 Sodium Zirconium PHA 08/18/25 In Process Cyclosilicate 14:00 Corrosion Engineer: Obtain ORDERS 08/18/25 Transmitted Consent For: 15:59 Norepinephrine 8 PHA 08/18/25 In Process Mg/250ml Kit 17:15 Communication Order ORDERS 08/18/25 Transmitted 20:12 Give Un-Diluted PHA 08/19/25 In Process (Gi... W/Bumetanide 09:30 * Picc Line Consult CONS 08/19/25 Transmitted 10:17 CC Plasma Assessment Blood Product Administration S: [id number] RAYNA BLAIR MD Aug 19, 2025 11:23
--- NOTE | 2025-08-19 12:46 | DVHNC2 ---
Procedure - ULTRASOUND-GUIDED RIGHT Subclavian CENTRAL VENOUS CANNULATION for Jose M (Large Bore) Catheter placement CPT Codes: 86590 (ultrasound guidance) 63134 (insertion of non-tunneled centrally inserted central venous catheter) 32048 (CXR interpretation) DATE: 08/19/25 Time: 1145 am PHYSICIAN: Silvia Puga Applications Consultant: Dr Pacheco, PGY 1 PREOPERATIVE DIAGNOSIS: Acute renal failure, requiring hemodialysis POSTOPERATIVE DIAGNOSIS: Acute renal failure, requiring hemodialysis PROCEDURE PERFORMED: Limited Ultrasound-guided Right Subclavian large-bore central line (Jose M) placement. ANESTHESIA: 2 mL of 1% lidocaine plain. ESTIMATED BLOOD LOSS: less than 5 mL. SPECIMENS: None. COMPLICATIONS: None. INDICATIONS FOR PROCEDURE: The patient is in need of large bore IV access for hemodialysis due to acute renal failure DESCRIPTION OF PROCEDURE IN DETAIL: The patient was lying in the Trendelenburg position with head turned 30 degrees away from the insertion site. The skin was thoroughly sponged with chlorhexidine and allowed to dry. All persons involved were shielded with hair nets, face masks and sterile gowns. With sterile-gloved hands the right neck area was draped with the large disposable sterile field provided in the pre-manufactured kit. The skin and subcutaneous tissues superficial to the RIGHT Subclavian vein were anesthetized with 2 mL of 1% lidocaine. The RIGHT Subclavian vein was identified on ultrasound from the angle of the mandible down into the supraclavicular fossa using the linear ultrasound probe in the transverse orientation. The carotid artery was identified and avoided utilizing color-flow. The Subclavian vein was then placed in the center of the ultrasound field and compressed for patency. A movement artifact was identified as the needle was advanced through the skin and advanced toward the vessel. A real time hyperechoic signal revealed visualization of vascular needle entry into the lumen as blood was noted to flashback in the syringe. The needle was then held in place while the guide wire was advanced. The needle was then removed. Direct visualization of guide wire location within the vein was noted on ultrasound indicating proper placement and was documented in the electronic medical record chart. A skin dilator was advanced over the guidewire and removed. A larger bore skin dilator was advanced over the guidewire and removed. The double-lumen Jose M catheter was then advanced over the guide wire into proper position. The guide wire was removed and discarded. The ports were aspirated which showed good blood return and then carefully flushed with normal saline. Heparin 1.4 mL were placed into each port. The catheter was stabilized and sutured to the skin with 2-0 Prolene at 2 anchor points. A sterile bio-patch and dressing was placed over the catheter, including the insertion site. The patient tolerated the procedure well. A chest x-ray was ordered for position confirmation. I reviewed the image immediately after it was taken at bedside. Post-procedure chest x-ray demonstrates the Jose M catheter line in the superior vena and no evidence of any pneumothorax. An image print out of the guidewire within the lumen of the right Subclavian vein accompanies the chart. Visit Coding Pulmonary Billing Provider: SILVIA PUGA MD Date of Service if different f: Aug 19, 2025 Common Visit Codes: PROCEDURE ONLY Procedure Codes: [id number] NON-TUNNEL CV CATH, 94132-LE GUIDE VASCULAR ACCESS SILVIA PUGA MD Aug 19, 2025 12:46
--- NOTE | 2025-08-19 13:25 | DVH ---
CHEST RADIOGRAPH Indication: raissa catheter placement, r/o pneumothorax; Right SCV Technique: Single frontal view of the chest was obtained COMPARISON: XY CHEST PORTABLE on DOS: 08/15/25, XY CHEST PORTABLE on DOS: 06/08/25 FINDINGS: Lines and Tubes: Right central venous catheter in satisfactory position. Lungs: Unchanged pulmonary vascular congestion. Pleura: No effusion. No appreciable pneumothorax. Cardiomediastinal contours: Cardiomegaly. Bones: Unremarkable IMPRESSION: Right central venous catheter in satisfactory position. No appreciable pneumothorax.
[2025-08-19] MEDS: LIDOCAINE 1% (LOCAL ANESTH.) PF 5ml SDV ID ONE (14:10)
[2025-08-19] MEDS: ROCURONIUM 10MG/ML 10ML VIAL IV ONE ×2 (15:08→15:30)
[2025-08-19] MEDS: ETOMIDATE (2MG/ML) 20ML VIAL IV ONE ×2 (15:08→15:28)
--- NOTE | 2025-08-19 15:20 | DVH ---
CHEST RADIOGRAPH Indication: PICC Line Placement Technique: Single frontal view of the chest was obtained Comparison: XY CHEST XRAY 1 VIEW on DOS: 08/19/25, XY CHEST PORTABLE on DOS: 08/15/25, XY CHEST PORTABLE on DOS: 06/08/25 FINDINGS: Lines and Tubes: Right-sided central venous catheter at the cavoatrial junction significantly changed from earlier chest x-ray. There is now a PICC line in place from the right arm with the tip at the cavoatrial junction. Lungs: No focal consolidation. Pleura: No effusion. No pneumothorax. Cardiomediastinal contours: Cardiomegaly appears stable when compared to chest x-ray of 08/19/2025 at 1:01 p.m. Bones: No acute osseous abnormality. IMPRESSION: 1. Central venous catheter in place not significantly changed. 2. PICC line in place from the left arm with the tip at the cavoatrial junction
[2025-08-19] MEDS: PHENYLEPHRINE IV 250 ML IV ONE (15:23)
[2025-08-19] MEDS: VASOPRESSIN 20 UNIT/ML ONE (15:24)
[2025-08-19] MEDS ORDERED: VASOPRESSIN 40 UNITS in D5W 5% 198 ML IV SCH (15:30)
--- NOTE | 2025-08-19 15:35 | DVHPN2 ---
Subjective On bipap this morning had some dark stool this morning Reviewed: H&P Changes from previous H/P or p: No Changes Objective Vitals Vital Signs Date Time Temp Pulse Resp B/P (MAP) Pulse Ox O2 Delivery O2 Flow Rate FiO2 08/19/25 13:31 103 22 96 08/19/25 12:01 97.6 97.6 08/19/25 12:00 Bi-Pap+ 0 30 Oxymizer 30 Intake/Output Intake and Output 08/19/25 05:00 Intake Total 507.800 ml Output Total 450 ml Balance 57.800 ml Intake Oral 0 ml IV Total 507.800 ml Output Urine Total 450 ml Stool Total 0 ml General Appearance: Alert, moderate distress HEENT: Atraumatic Lungs: Clear to auscultation Cardiovascular: Regular rate, Normal S1, Normal S2 Abdomen: Normal bowel sounds Medications Current Medications Medications Dose Ordered Sig/Erum Route Start Time Stop Time Status Last Admin Dose Admin Nitroglycerin 0.4 mg Q5MINP PRN SL 08/15/25 20:45 Hold Carvedilol 6.25 mg Q12HR PO 08/15/25 22:00 Hold 08/16/25 22:07 6.25 MG Sildenafil Citrate 20 mg TID@08,14,20 PO 08/16/25 08:00 08/17/25 15:13 20 MG Ferrous Sulfate 325 mg BIDWM PO 08/16/25 08:00 08/17/25 17:10 325 MG Albuterol 2.5 mg Q6HPRN PRN NEB 08/15/25 21:45 08/19/25 12:47 2.5 MG Azithromycin 250 ml @ 125 mls/hr DAILY IV 08/16/25 10:00 08/18/25 11:50 125 MLS/HR Ondansetron HCl 4 mg Q4HP PRN IV 08/15/25 22:15 08/19/25 06:35 4 MG Acetaminophen 650 mg Q6HP PRN PO 08/15/25 22:15 Dopamine HCl/ Dextrose 250 ml @ 9.975 mls/ hr Q24H IV 08/16/25 08:45 08/19/25 02:49 9.975 MLS/HR Octreotide Acetate 100 mcg TID SUBCUT 08/16/25 14:00 08/19/25 06:42 100 MCG Midodrine 15 mg TID@0600,1200,1800 PO 08/17/25 12:00 08/17/25 17:08 15 MG Sevelamer HCl 800 mg TIDWM PO 08/17/25 12:00 08/17/25 17:08 800 MG Calcitriol 0.25 mcg DAILY PO 08/17/25 10:00 08/17/25 10:49 0.25 MCG Zirconium Oxide 10 gm TID PO 08/18/25 14:00 08/20/25 06:01 Norepinephrine Bitartrate 250 ml @ 3.75 mls/hr Q24H IV 08/18/25 17:15 08/19/25 02:49 18.75 MLS/HR Lactulose 300 ml Q6HR MN 08/19/25 00:00 08/19/25 00:00 300 ML Morphine Sulfate 2 mg Q30M PRN IV 08/19/25 09:15 Pantoprazole Sodium 40 mg BID IV 08/19/25 10:00 Bumetanide 12.5 mg/Miscellaneous 50 ml @ 4 mls/hr [id number] IV 08/19/25 09:30 Sodium Chloride 10 ml QSHIFT@10,22 IV 08/19/25 22:00 Phenylephrine HCl 250 ml @ 30 mls/hr Q8H20M IV 08/19/25 15:30 UNV Vasopressin 40 units/Dextrose 200 ml @ 60 mls/hr Q3H20M IV 08/19/25 15:30 UNV Laboratory Results Laboratory Tests 08/19/25 03:25 Chemistry Test 08/19/25 03:25 Albumin 4.3 g/dL (3.2-4.8) Calcium Level 9.3 mg/dL (8.7-10.4) Magnesium Level 3.0 mg/dL (1.6-2.6) H Total Protein 7.4 g/dL (5.7-8.2) LFT Test 08/19/25 03:25 Alanine Aminotransferase (ALT) < 9 U/L (7-40) Alkaline Phosphatase 52 U/L (46-116) Aspartate Amino Transferase (AST) 15 U/L (13-40) Total Bilirubin 1.3 mg/dL (0.2-1.0) H Urinalysis Test 08/16/25 04:10 Urine Color Colorless (Yellow) Urine Clarity Turbid (Clear) H Urine pH 5.0 (5.0-9.0) Urine Specific [place] 1.010 (1.001-1.035) Urine Protein Trace (Negative) H Urine Ketones Negative (Negative) Urine Blood 2+ /uL (Negative) H Urine Nitrite Negative (Negative) Urine Bilirubin Negative (Negative) Urine Urobilinogen Normal mg/dL (Negative) Urine Leukocyte Esterase 3+ /uL (Negative) Urine RBC 243 /hpf (0 - 4) Urine WBC Clumps Present /hpf (None Seen) Urine Microscopic WBC 285 /HPF (0-5) H Urine Squamous Epithelial Cells Few /hpf (<5) Urine Bacteria Few /hpf (None Seen) H Urine Hyaline Casts Many /lpf (0 - 2) Urine Creatinine 50.59 mg/dL (30.0-125.0) Urine Protein/Creatinine Ratio 0.61 Urine Sodium 46 mmol/L (40-220) Urine Glucose Normal mg/dL (Normal) Urine Total Protein 30.8 mg/dL (1-14) H Blood Gas Results Test 08/19/25 10:10 Arterial Blood pH 7.257 (7.350-7.450) FiO2 % 41.0 Microbiology Microbiology Date/Time Source Procedure Growth Status 08/18/25 10:55 Nose MRSA Screen - Final Complete 08/16/25 04:10 Urine - [place] [place] Urine Culture - Preliminary Escherichia coli - ESBL Resulted Assessment/Plan Assessment/Plan #Acute on chronic respiratory failure #Acute on chronic renal failure #Pulmonary hypertension #Heart failure secondary to the above #Pneumonia due to gram negative rods #Acute hypercapneic respiratory failure ABG showed Co2 retention On bipap and wean as able Repeat ABG #Acute GI bleeding PPI BID Transfuse 2 U PRBC Consult GI H and H q 6 hours #Acute hypovolemic shock Started pressors today with levophed #Acute kidney injury due to hypovolemic shock Creatinine worsening Consult nephrology>pending HD Morbid obesity Pancytopenia Critical care time 79 minutes Plan discussed with: Patient, Son My Orders Orders - DOMENIC UP MD Procedure Category Date Status Time * Radiologist Consult CONS 08/19/25 Transmitted 09:11 Stool Occult Blood LAB 08/19/25 Logged 09:11 Pantoprazole PHA 08/19/25 In Process (Protonix) 10:00 Abg W/ Co-Ox RT 08/19/25 Logged 10:09 Hemoglobin & LAB 08/19/25 Logged Hematocrit 14:54 Phenylephrine Iv PHA 08/19/25 Logged (Phenylephrine/Ns) 15:30 D5w 5% (Dextrose 5%) PHA 08/19/25 Logged W/Vasopressin 15:30 Date of Service: Aug 19, 2025 Billing Provider: DOMENIC UP MD Common Visit Codes: [id number] CARE 30-74 MIN DOMENIC UP MD Aug 19, 2025 15:35
--- NOTE | 2025-08-19 16:16 | DVHNC2 ---
Procedure - Procedure: Endotracheal Intubation INDICATION: Acute respiratory failure, accessory muscle usage Physician: Silvia Puga MD Clay Transporter: Rosita Jack RN, Dr Pacheco PGY1 CONSENT: Emergent procedure. Implied. Date: 08/19/2025 Time out time: 1533 pm. Patient medications and allergies reviewed. Patient identification and proposed procedure were verified prior to the procedure by the physician, and a nurse in the patient's room. The heart rate, respiratory rate, oxygen saturations, blood pressure, adequacy of pulmonary ventilation, and response to care were monitored throughout the procedure. The physical status of the patient was reassessed after the procedure. PROCEDURE SUMMARY: A time out was performed. My hands were washed immediately prior to the procedure. I wore a surgical cap, mask with protective eyewear, gown and gloves throughout the procedure. The patient was placed on a sap data analyst including continuous pulse oximetry. The patient received 16 mg Etomidate and 100 mg rocuronium for induction. Cricoid pressure was maintained from time induction agent was given to time of cuff balloon inflation. Using a MAC 4 GlideoScope and a size 8.0 endotracheal tube with stylet, the patient was intubated on the 1 attempt. The stylet was removed and cuff balloon was inflated. Appropriate endotracheal tube position was confirmed by direct visualization of vocal cord passage, fogging of the tube, CO2 colorimetric indicator and symmetric breath sounds. The tube was secured at 22 cm at the lips. Post intubation chest x-ray is demonstrates the ETT between 2-6 cm above the dex. CPT Code: 51716 Visit Coding Pulmonary Billing Provider: SILVIA PUGA MD Date of Service if different f: Aug 19, 2025 Common Visit Codes: PROCEDURE ONLY Procedure Codes: [id number] SILVIA PUGA MD Aug 19, 2025 16:16
[2025-08-19 16:26] LABS: Hematocrit 21.7 % (36.0-46.0)
[2025-08-19 16:28] LABS: Albumin 3.6 g/dL (3.2-4.8); Anion Gap 9 (5-15); BUN/Creatinine Ratio 32.4 (10.0-20.0); Calcium 8.8 mg/dL (8.7-10.4); Carbon Dioxide 29 mmol/L (20-31); Total Protein 6.2 g/dL (5.7-8.2)
[2025-08-19 16:29] LABS: Bilirubin, Total 1.1 mg/dL (0.2-1.0)
[2025-08-19 16:35] LABS: Alanine Aminotransferase < 9 U/L (7-40); Alkaline Phosphatase 44 U/L (46-116); Chloride 109 mmol/L (98-107); Glucose 142 mg/dL (74-106); Sodium 147 mmol/L (136-145)
[2025-08-19 16:36] LABS: Hemoglobin 7.0 g/dL (12.2-16.2)
[2025-08-19 16:36] LABS: Blood Urea Nitrogen 94 mg/dL (9-23); Potassium 5.9 mmol/L (3.5-5.1)
[2025-08-19] MEDS: SODIUM CHL 0.9% 1000 ML BAG XX ONE (16:37)
[2025-08-19] MEDS: PROPOFOL 100 ML IV ONE (16:41)
[2025-08-19] MEDS: PROPOFOL 100 ML IV SCH (16:44)
[2025-08-19] MEDS: fentaNYL Drip 2500mCg/250mlNS 250 ML IV SCH (16:45)
--- NOTE | 2025-08-19 16:50 | DVH ---
EXAM: XY CHEST PORTABLE HISTORY: INTUBATION TECHNIQUE: 1 view of the chest COMPARISON: XY CHEST PORTABLE on DOS: 08/19/25 FINDINGS/IMPRESSION: LUNGS: Central pulmonary vascular congestion . suprahilar cephalization. Volume overload. Retrocardiac possible opacification. MEDIASTINUM: [id number] cardiomegaly. BONES: No acute osseous abnormality. OTHER: Endotracheal tube 4 cm above the dex right-sided central venous catheter with distal tip of the cavoatrial junction.
[2025-08-19] MEDS: AMIODARONE BOLUS KIT 100 ML IV ONE ×2 (16:51→17:00)
[2025-08-19] MEDS: VASOPRESSIN 20 UNITS in SODIUM CHL 0.9% 99 ML IV SCH (17:05)
[2025-08-19] MEDS: PHENYLEPHRINE IV 250 ML IV SCH (17:22)
[2025-08-19 17:31] LABS: INR 1.43 (0.9-1.15); Partial Thromboplastin Time 26.5 SEC (24.5-34.5); Prothrombin Time 14.6 sec (9.3-11.8)
[2025-08-19] MEDS ORDERED: VASOPRESSIN 20 UNITS in SODIUM CHL 0.9% 99 ML IV SCH ×2 (17:45→18:15)
[2025-08-19] MEDS ORDERED: LACTULOSE 20Gm/30ML SOLN PO SCH (18:00)
[2025-08-19] MEDS: OCTREOTIDE ACETATE 100 MCG in SODIUM CHL 0.9% 50 ML IV ONE (18:30)
[2025-08-19] MEDS: OCTREOTIDE ACETATE 500 MCG in SODIUM CHL 0.9% 99 ML IV SCH (18:34)
[2025-08-19] MEDS: PANTOPRAZOLE 40mg/50ML NS AE 50 ML IV SCH (18:39)
--- NOTE | 2025-08-19 19:45 | DVHPN2 ---
Subjective DOS: 08/19/2025 Patient seen and examined at bedside. Sedated, intubated on mechanical ventilator. Overnight events reviewed. Reviewed: H&P Changes from previous H/P or p: Changes Objective Vitals Vital Signs Date Time Temp Pulse Resp B/P (MAP) Pulse Ox O2 Delivery O2 Flow Rate FiO2 08/19/25 18:20 97.6 110 20 127/53 97.6 08/19/25 18:00 100 08/19/25 18:00 90 08/19/25 18:00 Mechanical Ventilator+ 0 Intake/Output Intake and Output 08/19/25 07:00 Intake Total 517.800 ml Output Total 1850 ml Balance -1332.200 ml Intake Oral 0 ml IV Total 517.800 ml Output Urine Total 1850 ml Stool Total 0 ml Exam Gen.: Patient lying in bed in medical ICU. Sedated, intubated on mechanical ventilator. Head: Normocephalic, atraumatic. Eyes: PERRLA. Ears: Normal external anatomy. Throat: Endotracheal tube and orogastric tube in place. Neck: Supple, trachea midline. Chest: Transmitted breath sounds bilaterally. Decreased air entry bilaterally. No wheezing. Bibasilar crackles. Cardiovascular: Positive S1, positive S2. Regular rate and rhythm. Abdomen: Positive bowel sounds in all 4 quadrants. Soft, nontender, nondistended. : Abreu in place. Normal external genitalia. Rectal: Deferred. Skin: Warm, dry. Intact. Extremities: 2+ radial pulses bilaterally. No lower extremity edema. Neuro: Sedated. HEENT: Atraumatic Lungs: Other (On mechanical ventilator) Cardiovascular: Regular rate, Normal S1, Normal S2 Abdomen: Normal bowel sounds Medications Current Medications Medications Dose Ordered Sig/Erum Route Start Time Stop Time Status Last Admin Dose Admin Nitroglycerin 0.4 mg Q5MINP PRN SL 08/15/25 20:45 Hold Carvedilol 6.25 mg Q12HR PO 08/15/25 22:00 Hold 08/16/25 22:07 6.25 MG Sildenafil Citrate 20 mg TID@08,14,20 PO 08/16/25 08:00 08/17/25 15:13 20 MG Albuterol 2.5 mg Q6HPRN PRN NEB 08/15/25 21:45 08/19/25 12:47 2.5 MG Azithromycin 250 ml @ 125 mls/hr DAILY IV 08/16/25 10:00 08/18/25 11:50 125 MLS/HR Ondansetron HCl 4 mg Q4HP PRN IV 08/15/25 22:15 08/19/25 06:35 4 MG Acetaminophen 650 mg Q6HP PRN PO 08/15/25 22:15 Sevelamer HCl 800 mg TIDWM PO 08/17/25 12:00 08/17/25 17:08 800 MG Calcitriol 0.25 mcg DAILY PO 08/17/25 10:00 08/17/25 10:49 0.25 MCG Norepinephrine Bitartrate 250 ml @ 3.75 mls/hr Q24H IV 08/18/25 17:15 08/19/25 02:49 18.75 MLS/HR Morphine Sulfate 2 mg Q30M PRN IV 08/19/25 09:15 Sodium Chloride 10 ml QSHIFT@10,22 IV 08/19/25 22:00 Phenylephrine HCl 250 ml @ 30 mls/hr Q8H20M IV 08/19/25 15:30 08/19/25 17:22 30 MLS/HR Octreotide Acetate 500 mcg/ Sodium Chloride 100 ml @ 10 mls/hr Q10H IV 08/19/25 16:15 08/19/25 18:34 10 MLS/HR Propofol 100 ml @ 4.497 mls/ hr [id number] IV 08/19/25 16:45 08/19/25 16:44 4.497 MLS/HR Fentanyl Citrate 250 ml @ 2.5 mls/hr Q24H IV 08/19/25 16:45 Amiodarone HCl 250 ml @ 16.66 mls/ hr Q15H1M IV 08/19/25 23:00 Vasopressin 20 units/Sodium Chloride 100 ml @ 9 mls/hr Q11H7M IV 08/19/25 18:30 08/19/25 17:05 9 MLS/HR Pantoprazole Sodium 50 ml @ 10 mls/hr Q5H IV 08/19/25 18:30 08/19/25 18:39 10 MLS/HR Laboratory Results Laboratory Tests 08/19/25 03:25 08/19/25 14:57 08/19/25 16:00 Chemistry Test 08/19/25 03:25 08/19/25 14:57 Albumin 4.3 g/dL (3.2-4.8) 3.6 g/dL (3.2-4.8) Calcium Level 9.3 mg/dL (8.7-10.4) 8.8 mg/dL (8.7-10.4) Magnesium Level 3.0 mg/dL (1.6-2.6) H Total Protein 7.4 g/dL (5.7-8.2) 6.2 g/dL (5.7-8.2) Coagulation Test 08/19/25 16:00 Prothrombin Time 14.6 sec (9.3-11.8) H Prothrombin Time INR 1.43 (0.9-1.15) H Activated Partial Thromboplast Time 26.5 SEC (24.5-34.5) LFT Test 08/19/25 03:25 08/19/25 14:57 Alanine Aminotransferase (ALT) < 9 U/L (7-40) < 9 U/L (7-40) Alkaline Phosphatase 52 U/L (46-116) 44 U/L (46-116) L Aspartate Amino Transferase (AST) 15 U/L (13-40) 11 U/L (13-40) L Total Bilirubin 1.3 mg/dL (0.2-1.0) H 1.1 mg/dL (0.2-1.0) H Urinalysis Test 08/16/25 04:10 Urine Color Colorless (Yellow) Urine Clarity Turbid (Clear) H Urine pH 5.0 (5.0-9.0) Urine Specific [place] 1.010 (1.001-1.035) Urine Protein Trace (Negative) H Urine Ketones Negative (Negative) Urine Blood 2+ /uL (Negative) H Urine Nitrite Negative (Negative) Urine Bilirubin Negative (Negative) Urine Urobilinogen Normal mg/dL (Negative) Urine Leukocyte Esterase 3+ /uL (Negative) Urine RBC 243 /hpf (0 - 4) Urine WBC Clumps Present /hpf (None Seen) Urine Microscopic WBC 285 /HPF (0-5) H Urine Squamous Epithelial Cells Few /hpf (<5) Urine Bacteria Few /hpf (None Seen) H Urine Hyaline Casts Many /lpf (0 - 2) Urine Creatinine 50.59 mg/dL (30.0-125.0) Urine Protein/Creatinine Ratio 0.61 Urine Sodium 46 mmol/L (40-220) Urine Glucose Normal mg/dL (Normal) Urine Total Protein 30.8 mg/dL (1-14) H Blood Gas Results Test 08/19/25 10:10 Arterial Blood pH 7.257 (7.350-7.450) FiO2 % 41.0 Microbiology Microbiology Date/Time Source Procedure Growth Status 08/18/25 10:55 Nose MRSA Screen - Final Complete 08/16/25 04:10 Urine - [place]breu [place] Urine Culture - Final Escherichia coli - ESBL Complete Assessment/Plan Assessment/Plan Impression: Acute on chronic hypoxic respiratory failure On mechanical ventilator Pulmonary hypertension Congestive heart failure Morbid obesity Acute on chronic renal failure Pancytopenia Events: Patient was emergently intubated and placed on mechanical ventilator She was noted to have massive bloody bowel movement. Rapid transfusion of 2 units PRBC was performed. Right subclavian vein Jose M catheter placed. See separate procedure note for details. Continue to monitor hemoglobin Protonix BID Started on Sandostatin drip Consult GI for evaluation. Continue vent support On AC mode; RR 20, VT 450, PEEP 8, FiO2 100% Taper FiO2 as tolerated Pressors for hemodynamic support Levophed 20 mcg/min and vasopressin. Dopamine 2 mcg/min Titrate to keep mean arterial pressure greater than 65 mmHg. Hemodialysis planned. Continue bronchodilators. Continue antibiotics Plan: S/p intubation on mechanical ventilator. On AC mode; RR 20, VT 450, PEEP 8, FiO2 100% Titrate FIO2 to keep O2 saturation above 90%. VAP bundle. Daily ABG and CXR while intubated Sedate for ventilator synchrony Pressors for hemodynamic support Titrate to keep mean arterial pressure greater than 65 mmHg Continue bronchodilators. Continue antibiotics Follow up Nephrology recs HD per Nephrology Diurese to euvolemia Monitor renal function. Monitor electrolytes. Supplement as necessary. Monitor hyperkalemia; K 6.1 -->5.9 Monitor ins and outs. DVT prophylaxis. Prognosis: Poor given patient's multiple co-morbidities. Condition: Critical Rest of plan per hospitalist and other consultants. A total of 35 minutes of critical care time was spent reviewing the patient record, examining the patient, making a diagnostic and therapeutic plan, discussing this plan with the medical personnel, following up on diagnostic studies and following the patient for clinical stability excluding any and all procedures. At least 50% of this time was spent in direct, [id number] contact. Thank you, Dr. Longo, for allowing me to participate in this patient's care. Further recommendations will depend on the patient's clinical course. Please do not hesitate to contact me if you have any questions or concerns. This medical document was created using an electronic medical record system with [employer] dictation system. Although these documentations are being carefully reviewed, there may still be some phonetic and typographical changes. The errors are purely typographical, due to imperfection on the software program, and do not reflect any compromise in the patient's medical care. Plan discussed with: Other (RYAN Sarah/Rosita) My Orders Orders - SILVIA RIVAS MD Procedure Category Date Status Time Chest Xray 1 View XY 08/19/25 Resulted 12:43 Chest Portable XY 08/19/25 Resulted 15:36 Type And Screen BBK 08/19/25 In Process 15:46 Ventilator Setup RT 08/19/25 Logged 15:45 Abg W/ Co-Ox RT 08/19/25 Logged 16:30 Electrocardigram EKG 08/19/25 Logged 16:04 Sodium Chl 0.9% PHA 08/19/25 In Process (So... W/Octreotide 16:15 * [facility] [employer] CONS 08/19/25 Transmitted 16:05 Propofol (Diprivan) PHA 08/19/25 In Process 16:45 Fentanyl Drip PHA 08/19/25 In Process 2500mcg/250mlns 16:45 Communication Order ORDERS 08/19/25 Transmitted 16:38 Visit Coding Pulmonary Billing Provider: SILVIA RIVAS MD Date of Service if different f: Aug 19, 2025 Common Visit Codes: [id number] INP/OBS CARE(HIGH), [id number] CARE 30-74 MIN SILVIA RIVAS MD Aug 19, 2025 19:45
[2025-08-19 20:46] LABS: Base Excess -0.6 mmol/L (-2.0-3.0)
[2025-08-19] MEDS: EPOETIN ALFA-EPBX 10,000 UNIT/1ML VIAL SC ONE (21:05)
[2025-08-19] MEDS: SODIUM CHLOR 0.9% PF (SALINE LOCK) 10ML VIAL/SYR IV SCH (21:06)
[2025-08-19] MEDS ORDERED: PANTOPRAZOLE 40 MG/10 ML VIAL INJ IV SCH (22:00)
[2025-08-19 22:54] LABS: Nucleated Red Blood Cells % 0.2 %
[2025-08-19 22:57] LABS: Hematocrit 20.4 % (36.0-46.0); Mean Corpuscular Hemoglobin 27.1 pg (28.0-32.0); Mean Corpuscular Volume 84.5 fL (80.0-100.0)
[2025-08-19 22:59] LABS: Hemoglobin 6.6 g/dL (12.2-16.2)
[2025-08-19 23:13] LABS: Anion Gap 10 (5-15); BUN/Creatinine Ratio 32.2 (10.0-20.0); Carbon Dioxide 26 mmol/L (20-31); Chloride 107 mmol/L (98-107); Potassium 3.9 mmol/L (3.5-5.1); Sodium 143 mmol/L (136-145)
[2025-08-19 23:17] LABS: Alanine Aminotransferase < 9 U/L (7-40); Albumin 3.2 g/dL (3.2-4.8); Alkaline Phosphatase 41 U/L (46-116); Bilirubin, Total 1.8 mg/dL (0.2-1.0); Blood Urea Nitrogen 57 mg/dL (9-23); Calcium 7.4 mg/dL (8.7-10.4); Glucose 199 mg/dL (74-106); Total Protein 5.4 g/dL (5.7-8.2)
[2025-08-19] MEDS: NOREPINEPHRINE BITARTRATE 32 MG in SODIUM CHL 0.9% 218 ML IV SCH (23:30)
[2025-08-19] MEDS: PHENYLEPHRINE INJ 80 MG in SODIUM CHL 0.9% 242 ML IV SCH (23:30)
[2025-08-20] VITALS (126 sets, daily range): BP systolic 103–145; BP diastolic 23–67; PULSE 60–92; RESP 15–28; TEMP 98.1–99.5; O2SAT 67–100
[2025-08-20 07:10] LABS: Base Excess 0.2 mmol/L (-2.0-3.0)
[2025-08-20 09:22] LABS: Hematocrit 22.1 % (36.0-46.0); Hemoglobin 7.2 g/dL (12.2-16.2); Mean Corpuscular Hemoglobin 26.9 pg (28.0-32.0); Mean Corpuscular Volume 82.5 fL (80.0-100.0); Nucleated Red Blood Cells % 0.1 %
[2025-08-20 09:37] LABS: INR 1.45 (0.9-1.15); Partial Thromboplastin Time 26.5 SEC (24.5-34.5); Prothrombin Time 14.8 sec (9.3-11.8)
[2025-08-20 09:41] LABS: Alanine Aminotransferase 11 U/L (7-40); Albumin 3.6 g/dL (3.2-4.8); Alkaline Phosphatase 49 U/L (46-116); Anion Gap 13 (5-15); BUN/Creatinine Ratio 28.1 (10.0-20.0); Calcium 8.8 mg/dL (8.7-10.4); Carbon Dioxide 27 mmol/L (20-31); Chloride 105 mmol/L (98-107); Magnesium 2.3 mg/dL (1.6-2.6); Potassium 4.6 mmol/L (3.5-5.1); Sodium 145 mmol/L (136-145); Total Protein 6.2 g/dL (5.7-8.2)
[2025-08-20 09:43] LABS: Bilirubin, Total 2.1 mg/dL (0.2-1.0); Blood Urea Nitrogen 65 mg/dL (9-23); Glucose 159 mg/dL (74-106)
--- NOTE | 2025-08-20 10:13 | DVH ---
AP portable chest CLINICAL INDICATION: PLEURAL EFFUSIONS Comparison: 08/19/2025 FINDINGS: The heart size is enlarged. There is an endotracheal tube with its tip 4.5 cm above the dex. There is consolidation and effusion in the left lung base. IMPRESSION: 1. Compared to previous exam improving congestive changes. There is some consolidation and effusion in the left lung base
--- NOTE | 2025-08-20 10:39 | ECG ---
[facility] Test Date: 2025-08-19 Test Time: 16:02:24 Pat Name: RAIZA TUCKER Department: ICU Room: [address] [place] [address] A Gender: F Mems Engineer: SHEYLA : 1960 Requested By: SILVIA RIVAS Order Number: [id number] Reading MD: Dalton Zhang Measurements Intervals [place] Rate: 120 P: 0 DE: 0 QRS: 145 QRSD: 116 T: 58 QT: 349 QTc: 494 Interpretive Statements Atrial fibrillation IRBBB and LPFB Low voltage, precordial leads Electronically Signed On 08-25-2025 18:20:06 PST by Daltno Zhang Please click the below link to view image of tracing.
--- NOTE | 2025-08-20 10:41 | DVHPN2 ---
Progress Note Date Seen: Aug 20, 2025 Medical Necessity Reason Pt with a Central, PICC or Fol: No Subjective Review of Systems: RESPIRATORY:Abnormal Other Systems: Patient seen and examined by myself today in follow-up, patient intubated on ventilator Patient examined hemodialysis, blood pressure stable Objective vital signs Vital Sign Date Time Temp Pulse Resp B/P (MAP) Pulse Ox O2 Delivery O2 Flow Rate FiO2 08/20/25 10:00 50 08/20/25 09:00 130/55 08/20/25 08:14 72 26 98 08/20/25 07:33 98.9 98.9 08/20/25 05:32 Mechanical Ventilator+ 08/20/25 00:00 0 Total Intake and Output 08/19/25 08/19/25 08/20/25 15:00 23:00 07:00 Intake Total 79.2 ml 2073.42 ml 1824.809 ml Output Total 100 ml 325 ml Balance 79.2 ml 1973.42 ml 1499.809 ml medications Current Medications Medications Dose Ordered Sig/Erum Route Start Time Stop Time Status Last Admin Dose Admin Nitroglycerin 0.4 mg Q5MINP PRN SL 08/15/25 20:45 Hold Carvedilol 6.25 mg Q12HR PO 08/15/25 22:00 Hold 08/16/25 22:07 6.25 MG Sildenafil Citrate 20 mg TID@08,14,20 PO 08/16/25 08:00 08/17/25 15:13 20 MG Albuterol 2.5 mg Q6HPRN PRN NEB 08/15/25 21:45 08/19/25 12:47 2.5 MG Azithromycin 250 ml @ 125 mls/hr DAILY IV 08/16/25 10:00 08/20/25 08:45 125 MLS/HR Ondansetron HCl 4 mg Q4HP PRN IV 08/15/25 22:15 08/19/25 06:35 4 MG Acetaminophen 650 mg Q6HP PRN PO 08/15/25 22:15 Sevelamer HCl 800 mg TIDWM PO 08/17/25 12:00 08/17/25 17:08 800 MG Calcitriol 0.25 mcg DAILY PO 08/17/25 10:00 08/17/25 10:49 0.25 MCG Morphine Sulfate 2 mg Q30M PRN IV 08/19/25 09:15 Sodium Chloride 10 ml QSHIFT@10,22 IV 08/19/25 22:00 08/20/25 08:45 10 ML Octreotide Acetate 500 mcg/ Sodium Chloride 100 ml @ 10 mls/hr Q10H IV 08/19/25 16:15 08/20/25 01:38 10 MLS/HR Propofol 100 ml @ 4.497 mls/ hr [id number] IV 08/19/25 16:45 08/20/25 07:13 22.485 MLS/HR Fentanyl Citrate 250 ml @ 2.5 mls/hr Q24H IV 08/19/25 16:45 08/19/25 20:23 2.5 MLS/HR Amiodarone HCl 250 ml @ 16.66 mls/ hr Q15H1M IV 08/19/25 23:00 08/19/25 23:51 16.66 MLS/HR Vasopressin 20 units/Sodium Chloride 100 ml @ 9 mls/hr Q11H7M IV 08/19/25 18:30 08/20/25 09:00 12 MLS/HR Pantoprazole Sodium 50 ml @ 10 mls/hr Q5H IV 08/19/25 18:30 08/20/25 06:20 10 MLS/HR Phenylephrine HCl 80 mg/Sodium Chloride 250 ml @ 7.5 mls/hr Q24H IV 08/19/25 19:45 08/19/25 23:30 19.688 MLS/HR Norepinephrine Bitartrate 32 mg/ Sodium Chloride 250 ml @ 0.938 mls/ hr Q24H IV 08/19/25 19:45 08/19/25 23:30 14.063 MLS/HR Examination: LUNGS:Abnormal, CVS:Normal, MSK:Abnormal laboratory and microbiology Laboratory Tests 08/20/25 09:03 Test 08/20/25 09:03 Range/Units Serum Glucose 159 H 74-106 mg/dL Microbiology Date/Time Source Procedure Growth Status 08/18/25 10:55 Nose MRSA Screen - Final Complete 08/16/25 04:10 Urine - Abreu [place] Urine Culture - Final Escherichia coli - ESBL Complete Problem List/Assessment/Plan Problem List/Assessment/Plan Acute kidney injury superimposed Chronic Kidney Disease secondary hemodynamic mediated, FeNa > 2% Acute respiratory failure, patient intubated on ventilator Congestive heart failure exacerbation Hepatic encephalopathy GI bleeding Pancytopenia Liver cirrhosis Acute pancreatitis high BUN/creatinine ratio likely due to GI bleeding Secondary hyperparathyroidism Hyperphosphatemia Persistent hyperkalemia resistant to medical treatment, resolved Recommendations Continue with UF to 3 L as tolerated Albumin 25% p.r.n. hemodialysis Use no heparin Epogen 10064 subQ 3 times weekly Strict I&Os Discontinue Bumex drip Albumin 25% IV piggyback Low-dose dopamine Octreotide 100 mcg subQ t.i.d. Midodrine 15 mg p.o. t.i.d. Calcitriol 0.25 mcg p.o. q.day Renvela 800 mg p.o. t.i.d. with meals Lactulose Packed red blood cell transfusion as needed kidney ultrasound reported normal kidneys We will continue to follow I discussed my plan of care with the son and the daughter at the bedside Plan discussed with: Son, Other (Nurse) My Orders My Orders Orders - RAYNA BLAIR MD Procedure Category Date Status Time Hemodialysis Orders ORDERS 08/19/25 Transmitted 11:23 Dialysis Nursing [facility] 08/19/25 In Process Message 11:23 Document Fluid Input [facility] 08/19/25 In Process And Outpu 11:23 Chest Portable XY 08/19/25 Resulted 14:30 Change Dressing Prn [facility] 08/19/25 In Process 14:44 Sodium Chloride Lock PHA 08/19/25 In Process (Saline Lock Ns) 22:00 Do Not Use Picc For [facility] 08/19/25 In Process Blood Cult 14:44 May Draw Blood From [facility] 08/19/25 In Process Picc 14:44 Ok To Use Picc [facility] 08/19/25 In Process 14:44 Change Picc Dressing [facility] 08/19/25 In Process Q7 Days 14:44 Sodium Chl 0.9% PHA 08/19/25 In Process (So... W/Vasopressin 18:30 Hemodialysis Orders ORDERS 08/20/25 Verified 10:37 Dialysis Nursing [facility] 08/20/25 Verified Message 10:37 Heparin Sodium PHA 08/20/25 Verified (Porcine) 10:45 Sodium Chloride 0.9% PHA 08/20/25 Verified 10:45 Document Fluid Input [facility] 08/20/25 Verified And Outpu 10:37 Retacrit 10,000unit PHA 08/20/25 Verified Sc Xone 21:00 CC Plasma Assessment Blood Product Administration S: [id number] RAYNA BLAIR MD Aug 20, 2025 10:41
[2025-08-20] MEDS: SODIUM CHL 0.9% 1000 ML BAG XX ONE (10:45)
[2025-08-20] MEDS: ALBUMIN 25% 100 ML IV ONE (12:00)
[2025-08-20] MEDS: ALBUMIN 25% 200 ML IV ONE (12:11)
--- NOTE | 2025-08-20 12:20 | DVHINCON2 ---
Date of service: Aug 20, 2025 Reason for Consultation Rectal bleed History of Present Illness 65 y/o F pt with PMH of cirrhosis admitted with SOB and edema, acute resp failure, on vent. GI team consulted last evening with hematochezia. I spoke with RN in detail. Pt was being treated for acute resp failure, was on BiPAP, noted to have rectal bleed yesterday PM, I was contacted. Pt was intubated and on 3 pressors. No hematemesis or melena noted. Family unsure of previous GI procedures. Wishes to be full code. Chart reviewed Past Medical History Reviewed Past Surgical History Reviewed Family History: Patient reports no known family medical history. Allergies: Coded Allergies: NO KNOWN ALLERGIES (Unverified , 06/08/25) Home Meds Active Scripts Ferrous Sulfate (FERROUS SULFATE) 325 Mg Tb, 1 TAB PO DAILY for 30 Days, #30 TAB 1 [facility] 06/12/25 Albuterol Sulfate (Albuterol Sulfate Hfa) 108 Mcg/Act Aer, 108 MCG IN Q6HP PRN for 30 Days, #1 AER [facility] 06/12/25 Furosemide (Lasix) 40 Mg Tab, 40 MG PO BID for 30 Days, #60 TAB Prov:[facility] 06/12/25 Reported Medications Sildenafil Citrate (Sildenafil Citrate) 20 Mg Tab, 1 TAB PO BID for 90 Days, #270 06/09/25 Ambrisentan (Ambrisentan) 5 Mg Tab, 5 MG PO DAILY, TAB 06/08/25 Spironolactone (Spironolactone) 25 Mg Tab, 1 TAB PO DAILY, #90 TAB 1 Refill 06/08/25 Dapagliflozin Propanediol (Farxiga) 10 Mg Tab, 10 MG PO DAILY, TAB 06/08/25 Carvedilol (Carvedilol) 6.25 Mg Tab, 1 TAB PO DAILY, #180 TAB 1 Refill 06/08/25 Current Medications Current Medications Medications (Trade) Dose Ordered Sig/Erum Route PRN Reason Start Time Stop Time Status Last Admin Sodium Chloride (Saline Lock Ns) 10 ml QSHIFT@10,22 IV 08/19/25 22:00 08/20/25 08:45 Phenylephrine HCl 250 ml @ 30 mls/hr Q8H20M IV 08/19/25 15:30 08/20/25 02:47 DC 08/19/25 17:22 Vasopressin 40 units/Dextrose 200 ml @ 60 mls/hr Q3H20M IV 08/19/25 15:30 08/19/25 17:39 DC Pantoprazole Sodium (Protonix) 40 mg BID IV 08/19/25 22:00 08/19/25 18:31 DC Octreotide Acetate 500 mcg/ Sodium Chloride 100 ml @ 10 mls/hr Q10H IV 08/19/25 16:15 08/20/25 11:49 Propofol 100 ml @ 4.497 mls/ hr [id number] IV 08/19/25 16:45 08/20/25 07:13 Fentanyl Citrate 250 ml @ 2.5 mls/hr Q24H IV 08/19/25 16:45 08/19/25 20:23 Amiodarone HCl 250 ml @ 16.66 mls/ hr Q15H1M IV 08/19/25 23:00 08/19/25 23:51 Vasopressin 20 units/Sodium Chloride 100 ml @ 9 mls/hr Q11H7M IV 08/19/25 17:45 08/19/25 18:15 DC Lactulose 30 ml Q6HR PO 08/19/25 18:00 08/19/25 18:30 DC Vasopressin 20 units/Sodium Chloride 100 ml @ 9 mls/hr Q11H7M IV 08/19/25 18:15 08/19/25 18:25 DC Vasopressin 20 units/Sodium Chloride 100 ml @ 9 mls/hr Q11H7M IV 08/19/25 18:30 08/20/25 09:00 Pantoprazole Sodium 50 ml @ 10 mls/hr Q5H IV 08/19/25 18:30 08/20/25 06:20 Phenylephrine HCl 80 mg/Sodium Chloride 250 ml @ 7.5 mls/hr Q24H IV 08/19/25 19:45 08/19/25 23:30 Norepinephrine Bitartrate 32 mg/ Sodium Chloride 250 ml @ 0.938 mls/ hr Q24H IV 08/19/25 19:45 08/19/25 23:30 Review of Systems Unable to obtain due to clinical condition Vital Signs Vital Signs Date Time Temp Pulse Resp B/P (MAP) Pulse Ox O2 Delivery O2 Flow Rate FiO2 08/20/25 12:00 62 08/20/25 12:00 40 08/20/25 12:00 26 98 Mechanical Ventilator+ 0 08/20/25 11:15 117/34 (61) 08/20/25 08:00 98.9 98.9 Physical Exam GE: on vent and sedated CVS: S1S2+ Lungs: clear Abdomen: distended, non-tender, BS+ Labs/Diagnostic Data Labs Test 08/20/25 09:03 08/20/25 07:04 08/19/25 23:00 08/19/25 20:37 Range/Units White Blood Count 8.2 # 4.4-10.8 10^3/uL Red Blood Count 2.68 L 4.0-5.20 10^6/uL Hemoglobin 7.2 L 12.2-16.2 g/dL Hematocrit 22.1 L 36.0-46.0 % Mean Corpuscular Volume 82.5 80.0-100.0 fL Mean Corpuscular Hemoglobin 26.9 L 28.0-32.0 pg Mean Corpuscular Hemoglobin Concent 32.6 32.0-36.0 g/dL Red Cell Distribution Width 18.5 H 11.8-14.3 % Platelet Count 43 L 140-450 10^3/uL Mean Platelet Volume 7.2 6.9-10.8 fL Neutrophils (%) (Auto) 71.1 37.0-80.0 % Lymphocytes (%) (Auto) 11.0 10.0-50.0 % Monocytes (%) (Auto) 13.9 H 0.0-12.0 % Eosinophils (%) (Auto) 3.7 0.0-7.0 % Basophils (%) (Auto) 0.3 0.0-2.0 % Neutrophils # (Auto) 5.9 1.6-8.6 10 ^3/uL Lymphocytes # (Auto) 0.9 0.4-5.4 10 ^3/uL Monocytes # (Auto) 1.1 0-1.3 10 ^3/uL Eosinophils # (Auto) 0.3 0-0.8 10 ^3/uL Basophils # (Auto) 0 0-0.2 10 ^3/uL Nucleated Red Blood Cells 0.1 % Prothrombin Time 14.8 H 9.3-11.8 sec Prothrombin Time INR 1.45 H 0.9-1.15 Activated Partial Thromboplast Time 26.5 24.5-34.5 SEC Sodium Level 145 136-145 mmol/L Potassium Level 4.6 3.5-5.1 mmol/L Chloride Level 105 98-107 mmol/L Carbon Dioxide Level 27 20-31 mmol/L Anion Gap 13 5-15 Blood Urea Nitrogen 65 H 9-23 mg/dL Creatinine 2.31 #H 0.550-1.02 mg/dL Glomerular Filtration Rate Calc 23 >90 mL/min BUN/Creatinine Ratio 28.1 H 10.0-20.0 Serum Glucose 159 H 74-106 mg/dL Calcium Level 8.8 8.7-10.4 mg/dL Magnesium Level 2.3 1.6-2.6 mg/dL Total Bilirubin 2.1 H 0.2-1.0 mg/dL Aspartate Amino Transferase (AST) 20 13-40 U/L Alanine Aminotransferase (ALT) 11 7-40 U/L Alkaline Phosphatase 49 46-116 U/L Total Protein 6.2 5.7-8.2 g/dL Albumin 3.6 3.2-4.8 g/dL Blood Gas Specimen Type Arterial Blood Gas Sample Site Right radial Blood Gas Patient Temperature 37.0 Arterial Blood Date Drawn [id number] Arterial Blood pH 7.419 7.350-7.450 Arterial Blood Partial Pressure CO2 38.9 32.0-45.0 mmHg Arterial Blood Partial Pressure O2 184.2 H 83.0-108.0 mmHg Arterial Blood HCO3 24.6 21.0-28.0 mmol/L Arterial Blood Oxygen Saturation 99.0 H 94.0-98.0 % Arterial Blood Base Excess 0.2 -2.0-3.0 mmol/L Arterial Blood Oxyhemoglobin 97.6 94.0-98.0 % Arterial Blood Carboxyhemoglobin 1.1 0.5-1.5 % Arterial Blood Methemoglobin 0.3 0.0-1.5 % Arterial Blood Deoxyhemoglobin 1.0 0.0-5.0 % George Test Modified Blood Gas Total Hemoglobin 7.90 L 12.0-16.0 g/dL Blood Gas Set Respiration Rate 24.0 Blood Gas Modality Vent - ac FiO2 % 70.0 Blood Gas Tidal Volume 450.0 Blood Gas PEEP or CPAP 8.0 Stool Occult Blood Positive Negative Stool Occult Blood Sample #3 Negative Specimen Drawn By Blood Gas Critical Value Read Back yes Blood Gas Notified Whom jean bolden md Blood Gas Notified Time [id number] Blood Gas Notified By Test 08/19/25 16:00 08/19/25 10:10 08/18/25 14:00 08/18/25 09:35 Range/Units POC Glucose 153 H 70-106 mg/dl Lactic Acid Level 1.2 0.4-2.0 mmol/L Ammonia 355 *H 11-32 umol/L Blood Gas Liter Flow 4.00 Blood Gas Spontaneous Rate 24 Blood Gas Spontaneous Tidal Volume 417 Blood Gas EPAP 5 Blood Gas IPAP 18 Creatine Kinase 49 34-145 U/L Test 08/16/25 11:00 08/16/25 04:10 08/16/25 03:21 08/15/25 20:10 Range/Units Vitamin D 25-Hydroxy 59.6 30.0-100 ng/mL Urine Color Colorless Yellow Urine Clarity Turbid H Clear Urine pH 5.0 5.0-9.0 Urine Specific [place] 1.010 1.001-1.035 Urine Protein Trace H Negative Urine Ketones Negative Negative Urine Blood 2+ H Negative /uL Urine Nitrite Negative Negative Urine Bilirubin Negative Negative Urine Urobilinogen Normal Negative mg/dL Urine Leukocyte Esterase 3+ Negative /uL Urine RBC 243 0 - 4 /hpf Urine WBC Clumps Present None Seen /hpf Urine Microscopic WBC 285 H 0-5 /HPF Urine Squamous Epithelial Cells Few <5 /hpf Urine Bacteria Few H None Seen /hpf Urine Hyaline Casts Many 0 - 2 /lpf Urine Creatinine 50.59 30.0-125.0 mg/dL Urine Protein/Creatinine Ratio 0.61 Urine Sodium 46 40-220 mmol/L Urine Glucose Normal Normal mg/dL Urine Total Protein 30.8 H 1-14 mg/dL Differential Total Cells Counted 100.0 100 Neutrophils % (Manual) 62 37.0-80.0 Band Neutrophils % (Manual) 0 Lymphocytes % (Manual) 20 10.0-50.0 Monocytes % (Manual) 15 H 0-12 Eosinophils % (Manual) 2 0-7 Basophils % (Manual) 0 0.0-2.0 Metamyelocytes % (manual) 1 Myelocytes % (Manual) 0 Promyelocytes % (Manual) 0 Blast Cells % (Manual) 0 Reactive Lymphocytes 0 Platelet Estimate Decreased Anisocytosis (manual) Slight Ovalocytes Few Phosphorus Level 5.0 2.4-5.1 mg/dL Parathyroid Hormone (Intact) 186.8 H 18.4-80.1 pg/mL Troponin I High Sensitivity 24 </=34 ng/L Test 08/15/25 19:17 Range/Units B-Type Natriuretic Peptide 207.44 0-100 pg/mL Lipase 178 H 12-53 U/L Microbiology Date/Time Source Procedure Growth Status 08/18/25 10:55 Nose MRSA Screen - Final Complete 08/16/25 04:10 Urine - Abreu [place] Urine Culture - Final Escherichia coli - ESBL Complete Assessment #Hematochezia #Anemia #Hemorrhagic shock #Cirrhosis #Acute resp failure, on vent #ESRD on HD -Monitor Hb, keep >7. INR 1.5 and PLT >50K -Octreotide and PPI drip, IV Rocephin if not on any IV antibiotics -Pt is unstable for GI procedures yesterday and today. Continue supportive care. Check CTAP angio/mesenteric angiogram. Plan EGD to r/o variceal bleeding only if clinically stable. Poor prognosis. -Family wishes on full code for now -Nephrology team on board -Will follow. Care plan discussed in detail with RN over phone Thank you for the consult Plan discussed with: Other SHANON ARREOLA MD Aug 20, 2025 12:20
--- NOTE | 2025-08-20 13:49 | DVHPN2 ---
Subjective intubated and sedated Reviewed: H&P Changes from previous H/P or p: No Changes Objective Vitals Vital Signs Date Time Temp Pulse Resp B/P (MAP) Pulse Ox O2 Delivery O2 Flow Rate FiO2 08/20/25 13:08 126/46 08/20/25 12:19 71 26 99 40 08/20/25 12:00 Mechanical Ventilator+ 0 08/20/25 08:00 98.9 98.9 Intake/Output Intake and Output 08/20/25 07:00 Intake Total 3977.429 ml Output Total 425 ml Balance 3552.429 ml IV Total 935.429 ml Blood Product 2742 ml Other 300 ml Output Urine Total 425 ml # Bowel Movements 10 General Appearance: Other (intubated and sedated) HEENT: Atraumatic Lungs: Other (On mechanical ventilator) Cardiovascular: Regular rate, Normal S1, Normal S2 Abdomen: Normal bowel sounds Medications Current Medications Medications Dose Ordered Sig/Erum Route Start Time Stop Time Status Last Admin Dose Admin Nitroglycerin 0.4 mg Q5MINP PRN SL 08/15/25 20:45 Hold Carvedilol 6.25 mg Q12HR PO 08/15/25 22:00 Hold 08/16/25 22:07 6.25 MG Sildenafil Citrate 20 mg TID@08,14,20 PO 08/16/25 08:00 08/17/25 15:13 20 MG Albuterol 2.5 mg Q6HPRN PRN NEB 08/15/25 21:45 08/19/25 12:47 2.5 MG Azithromycin 250 ml @ 125 mls/hr DAILY IV 08/16/25 10:00 08/20/25 08:45 125 MLS/HR Ondansetron HCl 4 mg Q4HP PRN IV 08/15/25 22:15 08/19/25 06:35 4 MG Acetaminophen 650 mg Q6HP PRN PO 08/15/25 22:15 Sevelamer HCl 800 mg TIDWM PO 08/17/25 12:00 08/17/25 17:08 800 MG Calcitriol 0.25 mcg DAILY PO 08/17/25 10:00 08/17/25 10:49 0.25 MCG Morphine Sulfate 2 mg Q30M PRN IV 08/19/25 09:15 Sodium Chloride 10 ml QSHIFT@,22 IV 08/19/25 22:00 12/6/25 08:45 10 ML Octreotide Acetate 500 mcg/ Sodium Chloride 100 ml @ 10 mls/hr Q10H IV 08/19/25 16:15 08/20/25 11:49 10 MLS/HR Propofol 100 ml @ 4.497 mls/ hr [id number] IV 08/19/25 16:45 08/20/25 07:13 22.485 MLS/HR Fentanyl Citrate 250 ml @ 2.5 mls/hr Q24H IV 08/19/25 16:45 08/20/25 13:08 15 MLS/HR Amiodarone HCl 250 ml @ 16.66 mls/ hr Q15H1M IV 08/19/25 23:00 08/19/25 23:51 16.66 MLS/HR Vasopressin 20 units/Sodium Chloride 100 ml @ 9 mls/hr Q11H7M IV 08/19/25 18:30 08/20/25 09:00 12 MLS/HR Pantoprazole Sodium 50 ml @ 10 mls/hr Q5H IV 08/19/25 18:30 08/20/25 12:44 10 MLS/HR Phenylephrine HCl 80 mg/Sodium Chloride 250 ml @ 7.5 mls/hr Q24H IV 08/19/25 19:45 08/19/25 23:30 19.688 MLS/HR Norepinephrine Bitartrate 32 mg/ Sodium Chloride 250 ml @ 0.938 mls/ hr Q24H IV 08/19/25 19:45 08/19/25 23:30 14.063 MLS/HR Meropenem 50 ml @ 17 mls/hr Q8HR IV 08/20/25 14:00 UNV Laboratory Results Laboratory Tests 08/20/25 09:03 Chemistry Test 08/19/25 14:57 08/19/25 22:44 08/20/25 09:03 Albumin 3.6 g/dL (3.2-4.8) 3.2 g/dL (3.2-4.8) 3.6 g/dL (3.2-4.8) Calcium Level 8.8 mg/dL (8.7-10.4) 7.4 mg/dL (8.7-10.4) L 8.8 mg/dL (8.7-10.4) Total Protein 6.2 g/dL (5.7-8.2) 5.4 g/dL (5.7-8.2) L 6.2 g/dL (5.7-8.2) Magnesium Level 2.3 mg/dL (1.6-2.6) Coagulation Test 08/19/25 16:00 08/20/25 09:03 Prothrombin Time 14.6 sec (9.3-11.8) H 14.8 sec (9.3-11.8) H Prothrombin Time INR 1.43 (0.9-1.15) H 1.45 (0.9-1.15) H Activated Partial Thromboplast Time 26.5 SEC (24.5-34.5) 26.5 SEC (24.5-34.5) LFT Test 08/19/25 14:57 08/19/25 22:44 08/20/25 09:03 Alanine Aminotransferase (ALT) < 9 U/L (7-40) < 9 U/L (7-40) 11 U/L (7-40) Alkaline Phosphatase 44 U/L (46-116) L 41 U/L (46-116) L 49 U/L (46-116) Aspartate Amino Transferase (AST) 11 U/L (13-40) L 21 U/L (13-40) 20 U/L (13-40) Total Bilirubin 1.1 mg/dL (0.2-1.0) H 1.8 mg/dL (0.2-1.0) H 2.1 mg/dL (0.2-1.0) H Urinalysis Test 08/16/25 04:10 Urine Color Colorless (Yellow) Urine Clarity Turbid (Clear) H Urine pH 5.0 (5.0-9.0) Urine Specific [place] 1.010 (1.001-1.035) Urine Protein Trace (Negative) H Urine Ketones Negative (Negative) Urine Blood 2+ /uL (Negative) H Urine Nitrite Negative (Negative) Urine Bilirubin Negative (Negative) Urine Urobilinogen Normal mg/dL (Negative) Urine Leukocyte Esterase 3+ /uL (Negative) Urine RBC 243 /hpf (0 - 4) Urine WBC Clumps Present /hpf (None Seen) Urine Microscopic WBC 285 /HPF (0-5) H Urine Squamous Epithelial Cells Few /hpf (<5) Urine Bacteria Few /hpf (None Seen) H Urine Hyaline Casts Many /lpf (0 - 2) Urine Creatinine 50.59 mg/dL (30.0-125.0) Urine Protein/Creatinine Ratio 0.61 Urine Sodium 46 mmol/L (40-220) Urine Glucose Normal mg/dL (Normal) Urine Total Protein 30.8 mg/dL (1-14) H Blood Gas Results Test 08/19/25 20:37 08/20/25 07:04 Arterial Blood pH 7.226 (7.350-7.450) 7.419 (7.350-7.450) FiO2 % 100.0 70.0 Microbiology Microbiology Date/Time Source Procedure Growth Status 08/18/25 10:55 Nose MRSA Screen - Final Complete 08/16/25 04:10 Urine - [place] Urine Culture - Final Escherichia coli - ESBL Complete Assessment/Plan Assessment/Plan #Acute on chronic respiratory failure #Acute on chronic renal failure #Pulmonary hypertension #Heart failure secondary to the above #Pneumonia due to gram negative rods #Acute hypercapneic respiratory failure Intubated and sedated vent settings per information technology program manager IV abx #Acute GI bleeding #Acute blood loss anemia #Acute thrombocytopenia PPI BID IV octreotride s/p 3U PRBC 4 FFP and 1 platelets Hb stable continue to monitor q 6 hours GI consulted #Acute hypovolemic shock On vasopressin and levophed #Acute kidney injury due to hypovolemic shock Creatinine worsening Consult nephrology>on HD now and tolerating Morbid obesity Pancytopenia Critical care time 79 minutes Plan discussed with: Son My Orders Orders - DOMENIC UP MD Procedure Category Date Status Time Apply Z-Guard GILDARDO 08/19/25 In Process 11:36 * Dietary Consult CONS 08/19/25 Transmitted 19:05 Sodium Chl 0.9% PHA 08/19/25 In Process (Ns... 19:45 Sodium Chl 0.9% PHA 08/19/25 In Process (Ns... 19:45 Pheresis Platelets BBK 08/20/25 Logged 09:48 Pheresis Platelets BBK 08/20/25 Logged 10:05 Pheresis Platelets BBK 08/20/25 Logged 10:08 Npo (Nothing By DIET 08/20/25 Transmitted Mouth) Diet Lunch Date of Service: Aug 20, 2025 Billing Provider: DOMENIC UP MD Common Visit Codes: [id number] CARE 30-74 MIN DOMENIC UP MD Aug 20, 2025 13:49
[2025-08-20] MEDS: MEROPENEM 1GM IVPB 50 ML IV SCH (16:11)
[2025-08-20] MEDS: EPOETIN ALFA-EPBX 10,000 UNIT/1ML VIAL SC ONE (20:43)
--- NOTE | 2025-08-20 23:59 | DVHPN2 ---
Subjective DOS: 08/20/2025 Patient seen and examined at bedside. Sedated, intubated on mechanical ventilator. Overnight events reviewed. Reviewed: H&P Changes from previous H/P or p: No Changes Objective Vitals Vital Signs Date Time Temp Pulse Resp B/P (MAP) Pulse Ox O2 Delivery O2 Flow Rate FiO2 08/20/25 23:45 74 26 133/36 (68) 95 08/20/25 23:31 Mechanical Ventilator+ 0 35 35 08/20/25 20:15 99.5 99.5 Intake/Output Intake and Output 08/20/25 07:00 Intake Total 4023.089 ml Output Total 425 ml Balance 3598.089 ml IV Total 981.089 ml Blood Product 2742 ml Other 300 ml Output Urine Total 425 ml # Bowel Movements 10 Exam Gen.: Patient lying in bed in medical ICU. Sedated, intubated on mechanical ventilator. Head: Normocephalic, atraumatic. Eyes: PERRLA. Ears: Normal external anatomy. Throat: Endotracheal tube and orogastric tube in place. Neck: Supple, trachea midline. Chest: Transmitted breath sounds bilaterally. Decreased air entry bilaterally. No wheezing. Bibasilar crackles. Cardiovascular: Positive S1, positive S2. Regular rate and rhythm. Abdomen: Positive bowel sounds in all 4 quadrants. Soft, nontender, nondistended. : Abreu in place. Normal external genitalia. Rectal: Deferred. Skin: Warm, dry. Intact. Extremities: 2+ radial pulses bilaterally. No lower extremity edema. Neuro: Sedated. General Appearance: Other (intubated and sedated) HEENT: Atraumatic Lungs: Other (On mechanical ventilator) Cardiovascular: Regular rate, Normal S1, Normal S2 Abdomen: Normal bowel sounds Medications Current Medications Medications Dose Ordered Sig/Erum Route Start Time Stop Time Status Last Admin Dose Admin Nitroglycerin 0.4 mg Q5MINP PRN SL 08/15/25 20:45 Hold Carvedilol 6.25 mg Q12HR PO 08/15/25 22:00 Hold 08/16/25 22:07 6.25 MG Sildenafil Citrate 20 mg TID@08,14,20 PO 08/16/25 08:00 08/17/25 15:13 20 MG Albuterol 2.5 mg Q6HPRN PRN NEB 08/15/25 21:45 12//25 12:47 2.5 MG Azithromycin 250 ml @ 125 mls/hr DAILY IV 08/16/25 10:00 08/20/25 08:45 125 MLS/HR Ondansetron HCl 4 mg Q4HP PRN IV 08/15/25 22:15 08/19/25 06:35 4 MG Acetaminophen 650 mg Q6HP PRN PO 08/15/25 22:15 Sevelamer HCl 800 mg TIDWM PO 08/17/25 12:00 08/17/25 17:08 800 MG Calcitriol 0.25 mcg DAILY PO 08/17/25 10:00 08/17/25 10:49 0.25 MCG Morphine Sulfate 2 mg Q30M PRN IV 08/19/25 09:15 Sodium Chloride 10 ml QSHIFT@10,22 IV 08/19/25 22:00 08/20/25 20:43 10 ML Octreotide Acetate 500 mcg/ Sodium Chloride 100 ml @ 10 mls/hr Q10H IV 08/19/25 16:15 08/20/25 20:43 10 MLS/HR Propofol 100 ml @ 4.497 mls/ hr [id number] IV 08/19/25 16:45 08/20/25 07:13 22.485 MLS/HR Fentanyl Citrate 250 ml @ 2.5 mls/hr Q24H IV 08/19/25 16:45 08/20/25 13:08 15 MLS/HR Amiodarone HCl 250 ml @ 16.66 mls/ hr Q15H1M IV 08/19/25 23:00 08/20/25 18:15 16.66 MLS/HR Vasopressin 20 units/Sodium Chloride 100 ml @ 9 mls/hr Q11H7M IV 08/19/25 18:30 08/20/25 18:16 12 MLS/HR Pantoprazole Sodium 50 ml @ 10 mls/hr Q5H IV 08/19/25 18:30 08/20/25 21:36 10 MLS/HR Phenylephrine HCl 80 mg/Sodium Chloride 250 ml @ 7.5 mls/hr Q24H IV 08/19/25 19:45 08/19/25 23:30 19.688 MLS/HR Norepinephrine Bitartrate 32 mg/ Sodium Chloride 250 ml @ 0.938 mls/ hr Q24H IV 08/19/25 19:45 08/20/25 16:07 11.25 MLS/HR Meropenem 50 ml @ 17 mls/hr Q12HR IV 08/20/25 14:00 08/20/25 21:36 17 MLS/HR Laboratory Results Laboratory Tests 08/20/25 09:03 Chemistry Test 08/20/25 09:03 Albumin 3.6 g/dL (3.2-4.8) Calcium Level 8.8 mg/dL (8.7-10.4) Magnesium Level 2.3 mg/dL (1.6-2.6) Total Protein 6.2 g/dL (5.7-8.2) Coagulation Test 08/20/25 09:03 Prothrombin Time 14.8 sec (9.3-11.8) H Prothrombin Time INR 1.45 (0.9-1.15) H Activated Partial Thromboplast Time 26.5 SEC (24.5-34.5) LFT Test 08/20/25 09:03 Alanine Aminotransferase (ALT) 11 U/L (7-40) Alkaline Phosphatase 49 U/L (46-116) Aspartate Amino Transferase (AST) 20 U/L (13-40) Total Bilirubin 2.1 mg/dL (0.2-1.0) H Urinalysis Test 08/16/25 04:10 Urine Color Colorless (Yellow) Urine Clarity Turbid (Clear) H Urine pH 5.0 (5.0-9.0) Urine Specific [place] 1.010 (1.001-1.035) Urine Protein Trace (Negative) H Urine Ketones Negative (Negative) Urine Blood 2+ /uL (Negative) H Urine Nitrite Negative (Negative) Urine Bilirubin Negative (Negative) Urine Urobilinogen Normal mg/dL (Negative) Urine Leukocyte Esterase 3+ /uL (Negative) Urine RBC 243 /hpf (0 - 4) Urine WBC Clumps Present /hpf (None Seen) Urine Microscopic WBC 285 /HPF (0-5) H Urine Squamous Epithelial Cells Few /hpf (<5) Urine Bacteria Few /hpf (None Seen) H Urine Hyaline Casts Many /lpf (0 - 2) Urine Creatinine 50.59 mg/dL (30.0-125.0) Urine Protein/Creatinine Ratio 0.61 Urine Sodium 46 mmol/L (40-220) Urine Glucose Normal mg/dL (Normal) Urine Total Protein 30.8 mg/dL (1-14) H Blood Gas Results Test 08/20/25 07:04 Arterial Blood pH 7.419 (7.350-7.450) FiO2 % 70.0 Microbiology Microbiology Date/Time Source Procedure Growth Status 08/18/25 10:55 Nose MRSA Screen - Final Complete 08/16/25 04:10 Urine - [place] Urine Culture - Final Escherichia coli - ESBL Complete Assessment/Plan Assessment/Plan Impression: Acute on chronic hypoxic respiratory failure On mechanical ventilator Pulmonary hypertension Congestive heart failure Morbid obesity Acute on chronic renal failure Pancytopenia Events: Patient was emergently intubated and placed on mechanical ventilator on 08/19/25 She was noted to have massive bloody bowel movement; had rapid transfusion of 2 units PRBC Right subclavian vein Jose M catheter placed. See separate procedure note for details. Continue vent support On AC mode; RR 26, VT 450, PEEP 8, FiO2 100-->40% Taper FiO2 as tolerated; improved FiO2 requirements No further bloody bowel movements. Continue to monitor hemoglobin - 7.2 g/dL Protonix BID Sandostatin drip GI recs appreciated. S/p 1 unit of platelets transfusion. Pressors for hemodynamic support Levophed 26 mcg/min and vasopressin 0.04 units/min. Titrate to keep mean arterial pressure greater than 65 mmHg. Off Shankar-Synephrine Dopamine 2 mcg/min On amiodarone drip. Monitor heart rate Cardiology recs appreciated Hemodialysis planned for today. Continue bronchodilators. Continue antibiotics Plan: S/p intubation on mechanical ventilator. On AC mode; RR 26, VT 450, PEEP 8, FiO2 40% Titrate FIO2 to keep O2 saturation above 90%. VAP bundle. Daily ABG and CXR while intubated Sedate for ventilator synchrony Pressors for hemodynamic support Titrate to keep mean arterial pressure greater than 65 mmHg Continue bronchodilators. Continue antibiotics Follow up Nephrology recs HD per Nephrology Diurese to euvolemia Monitor renal function. Monitor electrolytes. Supplement as necessary. Hyperkalemia resolved Monitor ins and outs. DVT prophylaxis. Prognosis: Poor given patient's multiple co-morbidities. Condition: Critical Rest of plan per hospitalist and other consultants. A total of 35 minutes of critical care time was spent reviewing the patient record, examining the patient, making a diagnostic and therapeutic plan, discussing this plan with the medical personnel, following up on diagnostic studies and following the patient for clinical stability excluding any and all procedures. At least 50% of this time was spent in direct, [id number] contact. Thank you, Dr. Longo, for allowing me to participate in this patient's care. Further recommendations will depend on the patient's clinical course. Please do not hesitate to contact me if you have any questions or concerns. This medical document was created using an electronic medical record system with [employer] dictation system. Although these documentations are being carefully reviewed, there may still be some phonetic and typographical changes. The errors are purely typographical, due to imperfection on the software program, and do not reflect any compromise in the patient's medical care. Plan discussed with: Other (RYAN Castro) My Orders Orders - SILVIA RIVAS MD Procedure Category Date Status Time Abg W/ Co-Ox RT 08/20/25 Logged 07:00 Chest Portable XY 08/20/25 Resulted 08:26 Meropenem 1gm Ivpb PHA 08/20/25 In Process (Merrem 1gm/50ml) 14:00 Respiratory Culture APRYL 08/20/25 Logged W/ Gs 16:50 Chest Xray 1 View XY 08/21/25 Logged 04:00 Visit Coding Pulmonary Billing Provider: SILVIA RIVAS MD Date of Service if different f: Aug 20, 2025 Common Visit Codes: [id number] INP/OBS CARE(HIGH), [id number] CARE 30-74 MIN SILVIA RIVAS MD Aug 20, 2025 23:59
[2025-08-21] VITALS (126 sets, daily range): BP systolic 103–146; BP diastolic 26–104; PULSE 50–79; RESP 12–27; TEMP 96.9–98.9; O2SAT 92–100
[2025-08-21 03:41] LABS: Hematocrit 18.4 % (36.0-46.0); Mean Corpuscular Hemoglobin 28.0 pg (28.0-32.0); Mean Corpuscular Volume 82.4 fL (80.0-100.0); Nucleated Red Blood Cells % 0.0 %
[2025-08-21 03:54] LABS: Albumin 3.7 g/dL (3.2-4.8); Anion Gap 13 (5-15); BUN/Creatinine Ratio 26.4 (10.0-20.0); Calcium 8.7 mg/dL (8.7-10.4); Carbon Dioxide 29 mmol/L (20-31); Chloride 104 mmol/L (98-107); Magnesium 2.2 mg/dL (1.6-2.6); Potassium 3.8 mmol/L (3.5-5.1); Total Protein 6.2 g/dL (5.7-8.2)
[2025-08-21 05:01] LABS: Alanine Aminotransferase < 9 U/L (7-40); Alkaline Phosphatase 45 U/L (46-116); Bilirubin, Total 2.5 mg/dL (0.2-1.0); Blood Urea Nitrogen 48 mg/dL (9-23); Glucose 129 mg/dL (74-106); Sodium 146 mmol/L (136-145)
[2025-08-21 05:19] LABS: Hemoglobin 6.3 g/dL (12.2-16.2)
--- NOTE | 2025-08-21 05:52 | DVH ---
MEDICAL RECORDS NUMBER: [id number] PROCEDURE: XY CHEST XRAY 1 VIEW DATE: 08/21/2025 05:23 AM HISTORY: ON VENTILATOR Views:1 COMPARISON: XY CHEST PORTABLE on DOS: 08/20/25, XY CHEST PORTABLE on DOS: 08/19/25, XY CHEST PORTABLE on DOS: 08/19/25, XY CHEST XRAY 1 VIEW on DOS: 08/19/25, XY CHEST PORTABLE on DOS: 08/15/25 FINDINGS/IMPRESSION: Lungs: Bilateral infiltrates are questioned. No large consolidation is seen. Mediastinum: Mediastinal structures appear unremarkable.A endotracheal tube is seen with the tip projecting approximately 2 cm above the dex. NG tube courses through the films. Skeletal: The skeletal structures appear unremarkable.
--- NOTE | 2025-08-21 05:52 | DVH ---
Exam: US US GUIDED VASCULAR ACCESS Date: 08/19/2025 02:53 PM Clinical History: PICC Line insertion Comparison: None Findings: Targeted sonographic evaluation of the basilic vein was obtained utilizing grayscale and color Doppler imaging. IMPRESSION: Sonographic assistance for central line placement. Please refer to procedural report for detailed findings.
[2025-08-21 07:35] LABS: Ovalocytes FEW; Tear Drop Cells FEW
[2025-08-21 09:00] LABS: Base Excess -1.0 mmol/L (-2.0-3.0)
--- NOTE | 2025-08-21 12:40 | DVHPN2 ---
Progress Note Date Seen: Aug 21, 2025 Medical Necessity Reason Pt with a Central, PICC or Fol: No Subjective Review of Systems: RESPIRATORY:Abnormal Other Systems: Patient seen and examined by myself today in follow-up Patient remained intubated on the ventilator Objective vital signs Vital Sign Date Time Temp Pulse Resp B/P (MAP) Pulse Ox O2 Delivery O2 Flow Rate FiO2 08/21/25 12:15 62 26 127/43 (71) 98 30 08/21/25 12:00 Mechanical Ventilator+ 0 08/21/25 11:27 97.2 97.2 Total Intake and Output 08/20/25 08/20/25 08/21/25 15:00 23:00 07:00 Intake Total 1253.30 ml 2139.80 ml 290.713 ml Output Total 850 ml 750 ml Balance 1253.30 ml 1289.80 ml -459.287 ml medications Current Medications Medications Dose Ordered Sig/Erum Route Start Time Stop Time Status Last Admin Dose Admin Nitroglycerin 0.4 mg Q5MINP PRN SL 08/15/25 20:45 Hold Carvedilol 6.25 mg Q12HR PO 08/15/25 22:00 Hold 08/16/25 22:07 6.25 MG Sildenafil Citrate 20 mg TID@08,14,20 PO 08/16/25 08:00 08/17/25 15:13 20 MG Albuterol 2.5 mg Q6HPRN PRN NEB 08/15/25 21:45 08/19/25 12:47 2.5 MG Azithromycin 250 ml @ 125 mls/hr DAILY IV 08/16/25 10:00 08/21/25 09:01 125 MLS/HR Ondansetron HCl 4 mg Q4HP PRN IV 08/15/25 22:15 08/19/25 06:35 4 MG Acetaminophen 650 mg Q6HP PRN PO 08/15/25 22:15 Sevelamer HCl 800 mg TIDWM PO 08/17/25 12:00 08/17/25 17:08 800 MG Calcitriol 0.25 mcg DAILY PO 08/17/25 10:00 08/17/25 10:49 0.25 MCG Morphine Sulfate 2 mg Q30M PRN IV 08/19/25 09:15 Sodium Chloride 10 ml QSHIFT@,22 IV 08/19/25 22:00 127/25 10:22 10 ML Octreotide Acetate 500 mcg/ Sodium Chloride 100 ml @ 10 mls/hr Q10H IV 08/19/25 16:15 08/21/25 05:50 10 MLS/HR Propofol 100 ml @ 4.497 mls/ hr [id number] IV 08/19/25 16:45 08/21/25 10:08 22.485 MLS/HR Fentanyl Citrate 250 ml @ 2.5 mls/hr Q24H IV 08/19/25 16:45 08/21/25 02:33 20 MLS/HR Amiodarone HCl 250 ml @ 16.66 mls/ hr Q15H1M IV 08/19/25 23:00 08/20/25 18:15 16.66 MLS/HR Vasopressin 20 units/Sodium Chloride 100 ml @ 9 mls/hr Q11H7M IV 08/19/25 18:30 08/21/25 10:21 12 MLS/HR Pantoprazole Sodium 50 ml @ 10 mls/hr Q5H IV 08/19/25 18:30 08/21/25 10:18 10 MLS/HR Phenylephrine HCl 80 mg/Sodium Chloride 250 ml @ 7.5 mls/hr Q24H IV 08/19/25 19:45 08/19/25 23:30 19.688 MLS/HR Norepinephrine Bitartrate 32 mg/ Sodium Chloride 250 ml @ 0.938 mls/ hr Q24H IV 08/19/25 19:45 08/20/25 16:07 11.25 MLS/HR Meropenem 50 ml @ 17 mls/hr DAILY@2200 IV 08/21/25 22:00 Examination: LUNGS:Normal, CVS:Normal, MSK:Abnormal laboratory and microbiology Laboratory Tests 08/21/25 02:55 Test 08/21/25 02:55 Range/Units Serum Glucose 129 H 74-106 mg/dL Microbiology Date/Time Source Procedure Growth Status 08/18/25 10:55 Nose MRSA Screen - Final Complete 08/16/25 04:10 Urine - [place] Urine Culture - Final Escherichia coli - ESBL Complete Problem List/Assessment/Plan Problem List/Assessment/Plan Acute kidney injury superimposed Chronic Kidney Disease secondary hemodynamic mediated, FeNa > 2% Acute respiratory failure, patient intubated on ventilator Congestive heart failure exacerbation Hepatic encephalopathy GI bleeding Pancytopenia Liver cirrhosis Acute pancreatitis high BUN/creatinine ratio likely due to GI bleeding Secondary hyperparathyroidism Hyperphosphatemia Persistent hyperkalemia resistant to medical treatment, resolved Recommendations Dialysis tomorrow, use no heparin Albumin 25% p.r.n. hemodialysis Use no heparin Epogen 53742 subQ 3 times weekly Strict I&Os Discontinue Bumex drip Albumin 25% IV piggyback Low-dose dopamine Octreotide 100 mcg subQ t.i.d. Midodrine 15 mg p.o. t.i.d. Calcitriol 0.25 mcg p.o. q.day Renvela 800 mg p.o. t.i.d. with meals Lactulose Packed red blood cell transfusion as needed kidney ultrasound reported normal kidneys We will continue to follow I discussed my plan of care with the son and the daughter at the bedside Plan discussed with: Son, Other (Nurse) My Orders My Orders Orders - RAYNA BLAIR MD Procedure Category Date Status Time Hepatitis B Surface LAB 08/20/25 In Process Antigen 12:36 Hepatitis B Surface LAB 08/20/25 In Process Antibody 12:36 CC Plasma Assessment Blood Product Administration S: [id number] RAYNA BLAIR MD Aug 21, 2025 12:40
[2025-08-21 13:24] LABS: Hematocrit 18.4 % (36.0-46.0)
[2025-08-21 13:28] LABS: Hemoglobin 6.2 g/dL (12.2-16.2)
--- NOTE | 2025-08-21 14:29 | DVHPN2 ---
Subjective intubated and sedated no further bleeding in stool Reviewed: H&P Changes from previous H/P or p: No Changes Objective Vitals Vital Signs Date Time Temp Pulse Resp B/P (MAP) Pulse Ox O2 Delivery O2 Flow Rate FiO2 08/21/25 13:00 70 26 136/39 (71) 96 08/21/25 12:15 30 08/21/25 12:00 97.2 97.2 08/21/25 12:00 Mechanical Ventilator+ 0 Intake/Output Intake and Output 08/21/25 05:00 Intake Total 3756.123 ml Output Total 1175 ml Balance 2581.123 ml IV Total 1132.123 ml Blood Product 2016 ml Other 608 ml Output Urine Total 1175 ml General Appearance: Other (intubated and sedated) HEENT: Atraumatic Lungs: Other (On mechanical ventilator) Cardiovascular: Regular rate, Normal S1, Normal S2 Abdomen: Normal bowel sounds Medications Current Medications Medications Dose Ordered Sig/Erum Route Start Time Stop Time Status Last Admin Dose Admin Nitroglycerin 0.4 mg Q5MINP PRN SL 08/15/25 20:45 Hold Carvedilol 6.25 mg Q12HR PO 08/15/25 22:00 Hold 08/16/25 22:07 6.25 MG Sildenafil Citrate 20 mg TID@08,14,20 PO 08/16/25 08:00 08/17/25 15:13 20 MG Albuterol 2.5 mg Q6HPRN PRN NEB 08/15/25 21:45 08/19/25 12:47 2.5 MG Azithromycin 250 ml @ 125 mls/hr DAILY IV 08/16/25 10:00 08/21/25 09:01 125 MLS/HR Ondansetron HCl 4 mg Q4HP PRN IV 08/15/25 22:15 08/19/25 06:35 4 MG Acetaminophen 650 mg Q6HP PRN PO 08/15/25 22:15 Sevelamer HCl 800 mg TIDWM PO 08/17/25 12:00 08/17/25 17:08 800 MG Calcitriol 0.25 mcg DAILY PO 08/17/25 10:00 08/17/25 10:49 0.25 MCG Morphine Sulfate 2 mg Q30M PRN IV 08/19/25 09:15 Sodium Chloride 10 ml QSHIFT@,22 IV 08/19/25 22:00 08/21/25 10:22 10 ML Octreotide Acetate 500 mcg/ Sodium Chloride 100 ml @ 10 mls/hr Q10H IV 08/19/25 16:15 08/21/25 05:50 10 MLS/HR Propofol 100 ml @ 4.497 mls/ hr [id number] IV 08/19/25 16:45 08/21/25 14:09 22.485 MLS/HR Fentanyl Citrate 250 ml @ 2.5 mls/hr Q24H IV 08/19/25 16:45 08/21/25 14:10 20 MLS/HR Amiodarone HCl 250 ml @ 16.66 mls/ hr Q15H1M IV 08/19/25 23:00 08/20/25 18:15 16.66 MLS/HR Vasopressin 20 units/Sodium Chloride 100 ml @ 9 mls/hr Q11H7M IV 08/19/25 18:30 08/21/25 10:21 12 MLS/HR Pantoprazole Sodium 50 ml @ 10 mls/hr Q5H IV 08/19/25 18:30 08/21/25 10:18 10 MLS/HR Phenylephrine HCl 80 mg/Sodium Chloride 250 ml @ 7.5 mls/hr Q24H IV 08/19/25 19:45 08/19/25 23:30 19.688 MLS/HR Norepinephrine Bitartrate 32 mg/ Sodium Chloride 250 ml @ 0.938 mls/ hr Q24H IV 08/19/25 19:45 08/20/25 16:07 11.25 MLS/HR Meropenem 50 ml @ 17 mls/hr DAILY@2200 IV 08/21/25 22:00 Laboratory Results Laboratory Tests 08/21/25 02:55 08/21/25 13:04 Chemistry Test 08/21/25 02:55 Albumin 3.7 g/dL (3.2-4.8) Calcium Level 8.7 mg/dL (8.7-10.4) Magnesium Level 2.2 mg/dL (1.6-2.6) Total Protein 6.2 g/dL (5.7-8.2) LFT Test 08/21/25 02:55 Alanine Aminotransferase (ALT) < 9 U/L (7-40) Alkaline Phosphatase 45 U/L (46-116) L Aspartate Amino Transferase (AST) 21 U/L (13-40) Total Bilirubin 2.5 mg/dL (0.2-1.0) H Urinalysis Test 08/16/25 04:10 Urine Color Colorless (Yellow) Urine Clarity Turbid (Clear) H Urine pH 5.0 (5.0-9.0) Urine Specific [place] 1.010 (1.001-1.035) Urine Protein Trace (Negative) H Urine Ketones Negative (Negative) Urine Blood 2+ /uL (Negative) H Urine Nitrite Negative (Negative) Urine Bilirubin Negative (Negative) Urine Urobilinogen Normal mg/dL (Negative) Urine Leukocyte Esterase 3+ /uL (Negative) Urine RBC 243 /hpf (0 - 4) Urine WBC Clumps Present /hpf (None Seen) Urine Microscopic WBC 285 /HPF (0-5) H Urine Squamous Epithelial Cells Few /hpf (<5) Urine Bacteria Few /hpf (None Seen) H Urine Hyaline Casts Many /lpf (0 - 2) Urine Creatinine 50.59 mg/dL (30.0-125.0) Urine Protein/Creatinine Ratio 0.61 Urine Sodium 46 mmol/L (40-220) Urine Glucose Normal mg/dL (Normal) Urine Total Protein 30.8 mg/dL (1-14) H Blood Gas Results Test 08/21/25 06:47 Arterial Blood pH 7.465 (7.350-7.450) FiO2 % 35.0 Microbiology Microbiology Date/Time Source Procedure Growth Status 08/18/25 10:55 Nose MRSA Screen - Final Complete 08/16/25 04:10 Urine - [place] Urine Culture - Final Escherichia coli - ESBL Complete Assessment/Plan Assessment/Plan #Acute on chronic respiratory failure #Acute on chronic renal failure #Pulmonary hypertension #Heart failure secondary to the above #Pneumonia due to gram negative rods #Acute hypercapneic respiratory failure Intubated and sedated vent settings per chief librarian branch IV abx #Acute GI bleeding #Acute blood loss anemia #Acute thrombocytopenia PPI BID IV octreotride s/p 3U PRBC 4 FFP and 1 platelets Hb stable 6.2 today>transfuse 2 U PRBC continue to monitor q 6 hours GI consulted #Acute hypovolemic shock On vasopressin and levophed #Acute kidney injury due to hypovolemic shock Creatinine worsening Consult nephrology>on HD now and tolerating Morbid obesity Pancytopenia Critical care time 79 minutes Plan discussed with: Son Date of Service: Aug 21, 2025 Billing Provider: DOMENIC UP MD Common Visit Codes: 10101-[id number] CARE 30-74 MIN DOMENIC UP MD Aug 21, 2025 14:28
--- NOTE | 2025-08-21 21:03 | DVHPN2 ---
Progress Note - Dictate Date Seen: Aug 21, 2025 Medical Necessity Reason Pt with a Central, PICC or Fol: No Subjective No rectal bleed today. NGT was placed during intubated, to suction today showed no blood per RN. Remains on vent and pressors requirement improving vital signs Vital Sign Date Time Temp Pulse Resp B/P (MAP) Pulse Ox O2 Delivery O2 Flow Rate FiO2 08/21/25 20:31 63 22 131/54 (79) 95 30 08/21/25 18:00 Mechanical Ventilator+ 0 08/21/25 18:00 97.7 97.7 Total Intake and Output 08/20/25 08/20/25 08/21/25 15:00 23:00 07:00 Intake Total 1253.30 ml 2139.80 ml 314.463 ml Output Total 850 ml 750 ml Balance 1253.30 ml 1289.80 ml -435.537 ml medications Current Medications Medications Dose Ordered Sig/Erum Route Start Time Stop Time Status Last Admin Dose Admin Nitroglycerin 0.4 mg Q5MINP PRN SL 08/15/25 20:45 Hold Carvedilol 6.25 mg Q12HR PO 08/15/25 22:00 Hold 08/16/25 22:07 6.25 MG Sildenafil Citrate 20 mg TID@08,14,20 PO 08/16/25 08:00 08/17/25 15:13 20 MG Albuterol 2.5 mg Q6HPRN PRN NEB 08/15/25 21:45 08/21/25 16:11 2.5 MG Azithromycin 250 ml @ 125 mls/hr DAILY IV 08/16/25 10:00 08/21/25 09:01 125 MLS/HR Ondansetron HCl 4 mg Q4HP PRN IV 08/15/25 22:15 08/19/25 06:35 4 MG Acetaminophen 650 mg Q6HP PRN PO 08/15/25 22:15 Sevelamer HCl 800 mg TIDWM PO 08/17/25 12:00 08/17/25 17:08 800 MG Calcitriol 0.25 mcg DAILY PO 08/17/25 10:00 08/17/25 10:49 0.25 MCG Morphine Sulfate 2 mg Q30M PRN IV 08/19/25 09:15 Sodium Chloride 10 ml QSHIFT@10,22 IV 08/19/25 22:00 08/21/25 10:22 10 ML Octreotide Acetate 500 mcg/ Sodium Chloride 100 ml @ 10 mls/hr Q10H IV 08/19/25 16:15 08/21/25 15:55 10 MLS/HR Propofol 100 ml @ 4.497 mls/ hr [id number] IV 08/19/25 16:45 08/21/25 18:02 22.485 MLS/HR Fentanyl Citrate 250 ml @ 2.5 mls/hr Q24H IV 08/19/25 16:45 08/21/25 14:10 20 MLS/HR Amiodarone HCl 250 ml @ 16.66 mls/ hr Q15H1M IV 08/19/25 23:00 08/20/25 18:15 16.66 MLS/HR Vasopressin 20 units/Sodium Chloride 100 ml @ 9 mls/hr Q11H7M IV 08/19/25 18:30 08/21/25 15:56 12 MLS/HR Pantoprazole Sodium 50 ml @ 10 mls/hr Q5H IV 08/19/25 18:30 08/21/25 18:46 10 MLS/HR Phenylephrine HCl 80 mg/Sodium Chloride 250 ml @ 7.5 mls/hr Q24H IV 08/19/25 19:45 08/19/25 23:30 19.688 MLS/HR Norepinephrine Bitartrate 32 mg/ Sodium Chloride 250 ml @ 0.938 mls/ hr Q24H IV 08/19/25 19:45 08/20/25 16:07 11.25 MLS/HR Meropenem 50 ml @ 17 mls/hr DAILY@2200 IV 08/21/25 22:00 objective Remains on vent and sedated laboratory and microbiology Laboratory Tests 08/21/25 13:04 08/21/25 02:55 Test 08/21/25 02:55 Range/Units Serum Glucose 129 H 74-106 mg/dL Assessment/Plan #Hematochezia, likely lower GIB, r/o variceal bleed #Anemia #Hemorrhagic shock #Cirrhosis, MELD Na #Acute resp failure, on vent #ESRD on HD -Monitor Hb, keep >7. INR 1.5 and PLT >50K -Octreotide and switch PPI drip to IV BID, IV Rocephin if not on any IV antibiotics -Pt is unstable for GI procedures yesterday and today. Continue supportive care. Check CTAP angio/mesenteric angiogram if bleeding persists and unstable for GI intervention. Plan EGD to r/o variceal bleeding only if clinically stable. Guarded prognosis. -Family wishes on full code for now -Nephrology team on board -Care plan discussed in detail with RN. Dr Elena will follow from tomorrow and plan GI intervention, based on clinical condition and indication. Thank you for allowing me to participate in the care of this patient Plan discussed with: Other CC Plasma Assessment Blood Product Administration S: [id number] SHANON ARREOLA MD Aug 21, 2025 21:03
[2025-08-21] MEDS: EPOETIN ALFA-EPBX 10,000 UNIT/1ML VIAL IV ONE (22:25)
--- NOTE | 2025-08-21 23:23 | DVHPN2 ---
Subjective DOS: 08/21/2025 Patient seen and examined at bedside. Sedated, intubated on mechanical ventilator. Overnight events reviewed. Reviewed: H&P Changes from previous H/P or p: No Changes Objective Vitals Vital Signs Date Time Temp Pulse Resp B/P (MAP) Pulse Ox O2 Delivery O2 Flow Rate FiO2 08/21/25 22:46 98.0 64 22 131/42 98.0 08/21/25 22:36 97 30 08/21/25 20:00 Mechanical Ventilator+ 0 Intake/Output Intake and Output 08/21/25 07:00 Intake Total 3707.563 ml Output Total 1600 ml Balance 2107.563 ml IV Total 1083.563 ml Blood Product 2016 ml Other 608 ml Output Urine Total 1600 ml Exam Gen.: Patient lying in bed in medical ICU. Sedated, intubated on mechanical ventilator. Head: Normocephalic, atraumatic. Eyes: PERRLA. Ears: Normal external anatomy. Throat: Endotracheal tube and orogastric tube in place. Neck: Supple, trachea midline. Chest: Transmitted breath sounds bilaterally. Decreased air entry bilaterally. No wheezing. Bibasilar crackles. Cardiovascular: Positive S1, positive S2. Regular rate and rhythm. Abdomen: Positive bowel sounds in all 4 quadrants. Soft, nontender, nondistended. : Abreu in place. Normal external genitalia. Rectal: Deferred. Skin: Warm, dry. Intact. Extremities: 2+ radial pulses bilaterally. No lower extremity edema. Neuro: Sedated. General Appearance: Other (intubated and sedated) HEENT: Atraumatic Lungs: Other (On mechanical ventilator) Cardiovascular: Regular rate, Normal S1, Normal S2 Abdomen: Normal bowel sounds Medications Current Medications Medications Dose Ordered Sig/Erum Route Start Time Stop Time Status Last Admin Dose Admin Nitroglycerin 0.4 mg Q5MINP PRN SL 08/15/25 20:45 Hold Carvedilol 6.25 mg Q12HR PO 08/15/25 22:00 Hold 08/16/25 22:07 6.25 MG Sildenafil Citrate 20 mg TID@08,14,20 PO 08/16/25 08:00 08/17/25 15:13 20 MG Albuterol 2.5 mg Q6HPRN PRN NEB 08/15/25 21:45 08/21/25 16:11 2.5 MG Azithromycin 250 ml @ 125 mls/hr DAILY IV 08/16/25 10:00 08/21/25 09:01 125 MLS/HR Ondansetron HCl 4 mg Q4HP PRN IV 08/15/25 22:15 08/19/25 06:35 4 MG Acetaminophen 650 mg Q6HP PRN PO 08/15/25 22:15 Sevelamer HCl 800 mg TIDWM PO 08/17/25 12:00 08/17/25 17:08 800 MG Calcitriol 0.25 mcg DAILY PO 08/17/25 10:00 08/17/25 10:49 0.25 MCG Morphine Sulfate 2 mg Q30M PRN IV 08/19/25 09:15 Sodium Chloride 10 ml QSHIFT@10,22 IV 08/19/25 22:00 08/21/25 10:22 10 ML Octreotide Acetate 500 mcg/ Sodium Chloride 100 ml @ 10 mls/hr Q10H IV 08/19/25 16:15 08/21/25 15:55 10 MLS/HR Propofol 100 ml @ 4.497 mls/ hr [id number] IV 08/19/25 16:45 08/21/25 21:53 22.485 MLS/HR Fentanyl Citrate 250 ml @ 2.5 mls/hr Q24H IV 08/19/25 16:45 08/21/25 14:10 20 MLS/HR Amiodarone HCl 250 ml @ 16.66 mls/ hr Q15H1M IV 08/19/25 23:00 08/20/25 18:15 16.66 MLS/HR Vasopressin 20 units/Sodium Chloride 100 ml @ 9 mls/hr Q11H7M IV 08/19/25 18:30 08/21/25 15:56 12 MLS/HR Pantoprazole Sodium 50 ml @ 10 mls/hr Q5H IV 08/19/25 18:30 08/21/25 18:46 10 MLS/HR Phenylephrine HCl 80 mg/Sodium Chloride 250 ml @ 7.5 mls/hr Q24H IV 08/19/25 19:45 08/19/25 23:30 19.688 MLS/HR Norepinephrine Bitartrate 32 mg/ Sodium Chloride 250 ml @ 0.938 mls/ hr Q24H IV 08/19/25 19:45 08/20/25 16:07 11.25 MLS/HR Meropenem 50 ml @ 17 mls/hr DAILY@2200 IV 08/21/25 22:00 Laboratory Results Laboratory Tests 08/21/25 02:55 08/21/25 13:04 Chemistry Test 08/21/25 02:55 Albumin 3.7 g/dL (3.2-4.8) Calcium Level 8.7 mg/dL (8.7-10.4) Magnesium Level 2.2 mg/dL (1.6-2.6) Total Protein 6.2 g/dL (5.7-8.2) LFT Test 08/21/25 02:55 Alanine Aminotransferase (ALT) < 9 U/L (7-40) Alkaline Phosphatase 45 U/L (46-116) L Aspartate Amino Transferase (AST) 21 U/L (13-40) Total Bilirubin 2.5 mg/dL (0.2-1.0) H Urinalysis Test 08/16/25 04:10 Urine Color Colorless (Yellow) Urine Clarity Turbid (Clear) H Urine pH 5.0 (5.0-9.0) Urine Specific [place] 1.010 (1.001-1.035) Urine Protein Trace (Negative) H Urine Ketones Negative (Negative) Urine Blood 2+ /uL (Negative) H Urine Nitrite Negative (Negative) Urine Bilirubin Negative (Negative) Urine Urobilinogen Normal mg/dL (Negative) Urine Leukocyte Esterase 3+ /uL (Negative) Urine RBC 243 /hpf (0 - 4) Urine WBC Clumps Present /hpf (None Seen) Urine Microscopic WBC 285 /HPF (0-5) H Urine Squamous Epithelial Cells Few /hpf (<5) Urine Bacteria Few /hpf (None Seen) H Urine Hyaline Casts Many /lpf (0 - 2) Urine Creatinine 50.59 mg/dL (30.0-125.0) Urine Protein/Creatinine Ratio 0.61 Urine Sodium 46 mmol/L (40-220) Urine Glucose Normal mg/dL (Normal) Urine Total Protein 30.8 mg/dL (1-14) H Blood Gas Results Test 08/21/25 06:47 Arterial Blood pH 7.465 (7.350-7.450) FiO2 % 35.0 Microbiology Microbiology Date/Time Source Procedure Growth Status 08/18/25 10:55 Nose MRSA Screen - Final Complete 08/16/25 04:10 Urine - [place] Urine Culture - Final Escherichia coli - ESBL Complete Assessment/Plan Assessment/Plan Impression: Acute on chronic hypoxic respiratory failure On mechanical ventilator Pulmonary hypertension Congestive heart failure Morbid obesity Acute on chronic renal failure Pancytopenia Events: Patient was emergently intubated and placed on mechanical ventilator on 08/19/25 She was noted to have massive bloody bowel movement; had rapid transfusion of 2 units PRBC Right subclavian vein Jose M catheter placed. See separate procedure note for details. Continue vent support On AC mode; RR 26, VT 450, PEEP 8, FiO2 40-->30% Taper FiO2 as tolerated; improved FiO2 requirements ABG reviewed, notable for alkalemia. RR was reduced to 22. No further bloody bowel movements. Monitor hemoglobin - trended down to 6.3 g/dL Plan for 2 units PRBC transfusion. S/p 1 unit platelet transfusion yesterday. Protonix BID Sandostatin drip Follow up GI recs appreciated. Plan for hemodialysis today F/u Nephrology recs Pressors for hemodynamic support Levophed 26 mcg/min and vasopressin 0.04 units/min. Titrate to keep mean arterial pressure greater than 65 mmHg. Dopamine 2 mcg/min On amiodarone drip. Monitor heart rate Cardiology recs appreciated Continue bronchodilators. Continue antibiotics Plan: S/p intubation on mechanical ventilator. On AC mode; RR 26-->22, VT 450, PEEP 8, FiO2 30% Titrate FIO2 to keep O2 saturation above 90%. VAP bundle. Daily ABG and CXR while intubated Sedate for ventilator synchrony Pressors for hemodynamic support Titrate to keep mean arterial pressure greater than 65 mmHg Continue bronchodilators. Continue antibiotics Follow up Nephrology recs HD per Nephrology Diurese to euvolemia Monitor renal function. Monitor electrolytes. Supplement as necessary. Hyperkalemia resolved Monitor ins and outs. DVT prophylaxis. Prognosis: Poor given patient's multiple co-morbidities. Condition: Critical Rest of plan per hospitalist and other consultants. A total of 35 minutes of critical care time was spent reviewing the patient record, examining the patient, making a diagnostic and therapeutic plan, discussing this plan with the medical personnel, following up on diagnostic studies and following the patient for clinical stability excluding any and all procedures. At least 50% of this time was spent in direct, [id number] contact. Thank you, Dr. Longo, for allowing me to participate in this patient's care. Further recommendations will depend on the patient's clinical course. Please do not hesitate to contact me if you have any questions or concerns. This medical document was created using an electronic medical record system with [employer] dictation system. Although these documentations are being carefully reviewed, there may still be some phonetic and typographical changes. The errors are purely typographical, due to imperfection on the software program, and do not reflect any compromise in the patient's medical care. Plan discussed with: Other (RYAN Bedolla) My Orders Orders - SILVIA RIVAS MD Procedure Category Date Status Time Abg W/ Co-Ox RT 08/21/25 Logged 05:56 Meropenem 1gm Ivpb PHA 08/21/25 In Process (Merrem 1gm/50ml) 22:00 Ventilator Orders RT 08/21/25 Transmitted 17:15 Complete Blood Count LAB 08/22/25 Verified 04:00 Basic Metabolic Panel LAB 08/22/25 Verified 04:00 Chest Portable XY 08/22/25 Logged 04:00 Visit Coding Pulmonary Billing Provider: SILVIA RIVAS MD Date of Service if different f: Aug 21, 2025 Common Visit Codes: [id number] INP/OBS CARE(HIGH), [id number] CARE 30-74 MIN SILVIA RIVAS MD Aug 21, 2025 23:23
[2025-08-22] VITALS (100 sets, daily range): BP systolic 91–153; BP diastolic 25–90; PULSE 48–75; RESP 9–24; TEMP 97.8–98.2; O2SAT 94–100
[2025-08-22] MEDS: MEROPENEM 1GM IVPB 50 ML IV SCH ×2 (00:37→21:21)
--- NOTE | 2025-08-22 04:38 | DVH ---
CHEST RADIOGRAPH Indication: Acute resp failure Technique: Single frontal view of the chest was obtained COMPARISON: XY CHEST XRAY 1 VIEW on DOS: 08/21/25, XY CHEST PORTABLE on DOS: 08/20/25, XY CHEST PORTABLE on DOS: 08/19/25, XY CHEST PORTABLE on DOS: 08/19/25, XY CHEST XRAY 1 VIEW on DOS: 08/19/25 FINDINGS: Lines and Tubes: Unchanged. Lungs: Stable appearing diffuse Increased prominence of the pulmonary vasculature and small bilateral pleural effusions. No pneumothorax. Cardiomediastinal contours: Cardiomegaly. Bones: Unremarkable IMPRESSION: 1. Stable appearing pulmonary edema and small bilateral pleural effusions. 2. Cardiomegaly. 3. Lines and tubes unchanged.
[2025-08-22 05:00] LABS: Hematocrit 24.9 % (36.0-46.0); Hemoglobin 8.2 g/dL (12.2-16.2); Mean Corpuscular Hemoglobin 27.8 pg (28.0-32.0); Mean Corpuscular Volume 84.4 fL (80.0-100.0); Nucleated Red Blood Cells % 0.1 %
[2025-08-22 05:01] LABS: Chloride 103 mmol/L (98-107); Potassium 3.6 mmol/L (3.5-5.1); Sodium 145 mmol/L (136-145)
[2025-08-22 05:02] LABS: Anion Gap 12 (5-15); Calcium 8.6 mg/dL (8.7-10.4); Carbon Dioxide 30 mmol/L (20-31)
[2025-08-22 05:07] LABS: BUN/Creatinine Ratio 20.3 (10.0-20.0); Glucose 100 mg/dL (74-106)
[2025-08-22 05:12] LABS: Blood Urea Nitrogen 28 mg/dL (9-23)
[2025-08-22 07:27] LABS: Base Excess 2.3 mmol/L (-2.0-3.0)
[2025-08-22] MEDS: VASOPRESSIN 20 UNIT/ML ONE (08:36)
[2025-08-22 10:12] LABS: Hepatitis B Surface Antigen Negative (Negative)
[2025-08-22] MEDS: PANTOPRAZOLE 40 MG/10 ML VIAL INJ IV SCH (10:19)
--- NOTE | 2025-08-22 10:35 | DVHPNRES ---
Progress Note Date Seen: Aug 22, 2025 Resident Creating Document: DONAL KILLIAN RESIDENT Medical Necessity Reason Pt with a Central, PICC or Fol: Yes The following are medically ne: PICC Line, Abreu Catheter Subjective Review of Systems Ms. Worthington is a 65 year old female with prior medical history of HFrEF, liver cirrhosis, Chronic Atrial fibrillation, Anemia with multiple blood transfusions in the past, and pulmonary hypertension, who presented to [facility] via EMS due shortness of breath. At the time of evaluation the patient is sedated and intubated, history was taken by from her sons Shashank and Dalia at bedside and from previous medical record. Per her sons, the patient has had progressively worsening bilateral leg edema for the last month associated woth worsening shortness of breath for two weeks. They state that she is compliant with her medications, however, every few months they have to take their mom to the hospital for similar symptoms, with most recent hospitalization at this institution in late May 2025. She was seen by her home health nurse on Friday (08/15/2025) night, who told the family to call EMS. Per record, on scene she was found to have a saturation of 90% on room air, she placed on 2 L NC with improvement to 92% and brought to the emergency department. On initial evaluation in the ED, she was afebrile, normocardic, MAP within normal range, saturating adequeatly on 2L NC. She was found to have anasarca reaching up to her thighs. 12 lead EKG showed atrial fibrilation. Initial labs are significant for pancytopenia, hyperkalemia, BUN 84, creatinine 2.14, BNP 207, troponins negative, and lipase 178. UA is consistent with a UTI. Chest Xray significant for hazy opacities throughout the right lung, and stable cardiomediastinal enlargement. The patient was started on IV lasix, hyperkalemia protocol, IV antibiotics, and of 1 PRBC and was admitted for further work up and management. The patient was evaluated by nephrology who initially recommended diuresis, albumin and low dose dopamine, and midodrine, however, due to progressively worsening kidney function, dialysis was recommended. On 08/18/2025 patient was found lethargic and disoriented, blood gas showed hypoxic and hypercapneic respiratory failure, she was started on BiPAP and transferred to the ICU. Mentation continued to deteriorate and required intubation for airway protection and respiratory insuffiency. Patient presented two large bloody bowel movements requiring emergent transfusion of 2 PRBCs and vasopressors. She was evaluated by gastroenterology who recommended use of PPI, ocreotide, and transfusions as needed with endoscopy when stable. On my initial evaluation in ICU, the patiet is intubated, sedated, and mechanically ventilated. She continues of 2 pressors, with drips recommended by GI. Prior medical history: HFrEF, Liver cirrhosis, Chronic Atrial Fibrillation, Anemia s/p multiple blood transfusions, and pulmonary hypertension Prior surgical history: 3 c-sections Allergies: Deny Social: Sons deny any previous drug, tobacco, or alcohol use. She recently moved to the area to live with her son, Eli. Gilbertw of systems: Unable to obtain due to patient being sedated and intubated Objective vital signs Vital Sign Date Time Temp Pulse Resp B/P (MAP) Pulse Ox O2 Delivery O2 Flow Rate FiO2 08/22/25 10:30 125/48 08/22/25 09:51 59 22 97 30 08/22/25 08:00 Mechanical Ventilator+ 0 08/22/25 07:00 97.8 97.8 Total Intake and Output 08/21/25 08/21/25 08/22/25 15:00 23:00 07:00 Intake Total 1569.815 ml 2241.504 ml 461.504 ml Output Total 1075 ml 850 ml Balance 1569.815 ml 1166.504 ml -388.496 ml medications Current Medications Medications Dose Ordered Sig/Erum Route Start Time Stop Time Status Last Admin Dose Admin Nitroglycerin 0.4 mg Q5MINP PRN SL 08/15/25 20:45 Hold Carvedilol 6.25 mg Q12HR PO 08/15/25 22:00 Hold 08/16/25 22:07 6.25 MG Sildenafil Citrate 20 mg TID@08,14,20 PO 08/16/25 08:00 08/17/25 15:13 20 MG Albuterol 2.5 mg Q6HPRN PRN NEB 08/15/25 21:45 08/21/25 16:11 2.5 MG Azithromycin 250 ml @ 125 mls/hr DAILY IV 08/16/25 10:00 08/22/25 10:19 125 MLS/HR Ondansetron HCl 4 mg Q4HP PRN IV 08/15/25 22:15 08/19/25 06:35 4 MG Acetaminophen 650 mg Q6HP PRN PO 08/15/25 22:15 Sevelamer HCl 800 mg TIDWM PO 08/17/25 12:00 08/17/25 17:08 800 MG Calcitriol 0.25 mcg DAILY PO 08/17/25 10:00 08/17/25 10:49 0.25 MCG Morphine Sulfate 2 mg Q30M PRN IV 08/19/25 09:15 Sodium Chloride 10 ml QSHIFT@10,22 IV 08/19/25 22:00 08/22/25 10:19 10 ML Octreotide Acetate 500 mcg/ Sodium Chloride 100 ml @ 10 mls/hr Q10H IV 08/19/25 16:15 08/22/25 08:37 10 MLS/HR Propofol 100 ml @ 4.497 mls/ hr [id number] IV 08/19/25 16:45 08/22/25 10:30 17.988 MLS/HR Fentanyl Citrate 250 ml @ 2.5 mls/hr Q24H IV 08/19/25 16:45 08/22/25 02:43 20 MLS/HR Amiodarone HCl 250 ml @ 16.66 mls/ hr Q15H1M IV 08/19/25 23:00 08/20/25 18:15 16.66 MLS/HR Vasopressin 20 units/Sodium Chloride 100 ml @ 9 mls/hr Q11H7M IV 08/19/25 18:30 08/22/25 08:36 12 MLS/HR Phenylephrine HCl 80 mg/Sodium Chloride 250 ml @ 7.5 mls/hr Q24H IV 08/19/25 19:45 08/19/25 23:30 19.688 MLS/HR Norepinephrine Bitartrate 32 mg/ Sodium Chloride 250 ml @ 0.938 mls/ hr Q24H IV 08/19/25 19:45 08/22/25 02:41 1.875 MLS/HR Meropenem 50 ml @ 17 mls/hr DAILY@2200 IV 08/21/25 22:00 08/22/25 00:37 17 MLS/HR Pantoprazole Sodium 40 mg BID IV 08/22/25 10:00 128/25 10:19 40 MG Examination General: The patient intubated, sedated, and mechanically ventilated, on pressors. HEENT: Normocephalic, atraumatic, equal sluggish pupils, no EOM, pale conjunctiva, ET tube in place, OG-tube in place Respiratory/pulmonary: Bilateral chest expansion, clear lungs bilaterally, no associated crackles or wheezes, presence of Jose M catheter in right pectoral region Cardiovascular: Irregular rhythm Abdomen: Obese, Abdomen nondistended, normal bowel sounds, soft, there is no pain to palpation in any of the abdominal quadrants, no palpable masses. Extremities: No deformities, bilateral pitting edema worse in the calves 3+, pulses are present Skin: Bruising and skin tears noted on left arm Neurological: Unable to evaluate due to sedation laboratory and microbiology Laboratory Tests 08/22/25 04:30 Test 08/22/25 04:30 Range/Units Serum Glucose 100 74-106 mg/dL Microbiology Date/Time Source Procedure Growth Status 08/18/25 10:55 Nose MRSA Screen - Final Complete 08/16/25 04:10 Urine - Abreu Port Urine Culture - Final Escherichia coli - ESBL Complete Problem List/Assessment/Plan Problem List/Assessment/Plan Neurology # Acute metabolic encephalopathy likely due to hyperammonemia # Sedated - Propofol 20 mcg/kg/hr - Fentanyl 175 mcg/hr Cardiovascular # Acute on chronic HFpEF heart failure -Likely precipitated by fluid overload and sepsis -Echocardiogram: LVEF 50%. mild mitral regurgitation. mild tricuspid regurgitation. mild to moderate pulmonic regurgitation -Furosemide 40 IV daily, discontinued -Bumex drip, discontinued -Jardiance, Furosemide, and carvedilol held at this time #Chronic Atrial Fibrillation - Amiodarone # Severe Pulmonary Hypertension - Sildenfail - held - Ambrisentan 5 mg - held Respiratory # Acute hypoxic respiratory failure # Acute hypercapneic respiratory failure # Ventilator -Intubated (08/19/2025) -On [facility] vent : VCAC Mode RR 22 TV 450ml, PEEP Of 8 and FiO2 of 30% # Pulmonary Edema with bilateral pleural effusioins - Chest xray: Stable appearing pulmonary edema and small bilateral pleural effusions. # Pneumonia ruled out - Azithromycin discontinued GI # Acute hypovolemic shock likely due to Lower GI Bleed - 8 PRBC transfusions, 4 FFPs, 3 Platelet transfusions - Per GI: Patient will go for endoscopy once more stable - Sandostatin drip - Protonix 40 mg IV BID - Vasopressin 0.04 U/min - Quadlevo 6 mcg/min # Liver cirrhosis likely due to fatty liver disease # Cholelithaisis - Abdominal US: The gallbladder wall measures 0.3 cm and is normal in size. Gallstones are noted. # Peptic ulcer prophylaxis -Pantoprazole 40 mg IV daily # Abreu catheter present draining clear urine # Complicated UTI - Urine culture: E coli ESBL - Meropenem 1 g IV BID Nephrology # RUDDY on CKD likely due to VMN/hemodynamic requiring dialysis # Hyperkalemia, resolved - Monitor potassium levels # Hypernatremia - Monitor Infectious disease # Possible Septic Shock due to UTI - Meropenem 1 g IV BID - Urine Culture: E. Coli ESBL - Vasopressin 0.04 U/min - Quadlevo 6 mcg/min Hem/onc # Acute hypovolemic shock likely due to Lower GI Bleed - 8 PRBC transfusions, 4 FFPs, 3 Platelet transfusions - Per GI: Patient will go for endoscopy once more stable - Sandostatin drip - Protonix 40 mg IV BID # Pancytopenia - Possibly associated to liver disease DVT prophylaxis: SCDs Nutrition: Clinamix Lines -R PICC line 08/19 -Abreu catheter 08/19 -ET tube: 08/19 -Jose M catheter 08/19 Drips during mech ventilation Propofol 20 mcg/kg/min Fentanyl 175 mcg/hr Vasopressin 0.04 U/min Quadlevo 6 mcg/min Sandostatin 50 mcg/h Patient is in critical condition, all findings and implications have been relayed to her sons at bedside. Questions and concerns were thoroughly addressed, prognosis is poor. Critical care time 83 minutes excluding procedure. Code status discussed greater than 20 minutes: Full CODE STATUS. Family at bedside explained about the condition of the patient Plan discussed with Dr. Gallo Plan discussed with: Son, Other (Nurse (Keke)) My Orders My Orders Orders - DONAL KILLIAN Procedure Category Date Status Time Ammonia LAB 08/22/25 Logged 10:10 CC Plasma Assessment Blood Product Administration S: [id number] Visit Coding STANDARD RES Billing Provider: ALINA GALLO MD Date of Service if different f: Aug 22, 2025 Common Visit Codes: 94784-IHCZKKGC CARE 30-74 MIN, 49753-[id number] CARE-EACH +30MIN DONAL KILLIAN Aug 22, 2025 10:35 ALINA GALLO MD Aug 23, 2025 12:22
--- NOTE | 2025-08-22 14:08 | DVHPN2 ---
Progress Note Date Seen: Aug 22, 2025 Resident Creating Document: RANDY PANDA RESIDENT Medical Necessity Reason Pt with a Central, PICC or Fol: Yes The following are medically ne: PICC Line, Abreu Catheter Subjective Review of Systems 65 y/o F pt with PMH of cirrhosis admitted with SOB and edema, acute resp failure, on vent. GI team consulted last evening with hematochezia. I spoke with RN in detail. Pt was being treated for acute resp failure, was on BiPAP, noted to have rectal bleed yesterday PM, I was contacted. Pt was intubated and on 3 pressors. No hematemesis or melena noted. Family unsure of previous GI procedures. Wishes to be full code. Chart reviewed 08/22 - patient seen and examined, intubated, on 2 pressors. Abdomen hypoactive. Soft. Objective vital signs Vital Sign Date Time Temp Pulse Resp B/P (MAP) Pulse Ox O2 Delivery O2 Flow Rate FiO2 08/22/25 13:39 124/41 08/22/25 12:20 60 22 97 30 08/22/25 12:00 Mechanical Ventilator+ 0 08/22/25 07:00 97.8 97.8 Total Intake and Output 08/21/25 08/21/25 08/22/25 15:00 23:00 07:00 Intake Total 1569.815 ml 2241.504 ml 461.504 ml Output Total 1075 ml 850 ml Balance 1569.815 ml 1166.504 ml -388.496 ml medications Current Medications Medications Dose Ordered Sig/Erum Route Start Time Stop Time Status Last Admin Dose Admin Nitroglycerin 0.4 mg Q5MINP PRN SL 08/15/25 20:45 Hold Carvedilol 6.25 mg Q12HR PO 08/15/25 22:00 Hold 08/16/25 22:07 6.25 MG Sildenafil Citrate 20 mg TID@08,14,20 PO 08/16/25 08:00 08/17/25 15:13 20 MG Albuterol 2.5 mg Q6HPRN PRN NEB 08/15/25 21:45 08/21/25 16:11 2.5 MG Azithromycin 250 ml @ 125 mls/hr DAILY IV 08/16/25 10:00 08/22/25 10:19 125 MLS/HR Ondansetron HCl 4 mg Q4HP PRN IV 08/15/25 22:15 08/19/25 06:35 4 MG Acetaminophen 650 mg Q6HP PRN PO 08/15/25 22:15 Sevelamer HCl 800 mg TIDWM PO 08/17/25 12:00 08/17/25 17:08 800 MG Calcitriol 0.25 mcg DAILY PO 08/17/25 10:00 08/17/25 10:49 0.25 MCG Morphine Sulfate 2 mg Q30M PRN IV 08/19/25 09:15 Sodium Chloride 10 ml QSHIFT@10,22 IV 08/19/25 22:00 08/22/25 10:19 10 ML Octreotide Acetate 500 mcg/ Sodium Chloride 100 ml @ 10 mls/hr Q10H IV 08/19/25 16:15 08/22/25 08:37 10 MLS/HR Propofol 100 ml @ 4.497 mls/ hr [id number] IV 08/19/25 16:45 08/22/25 10:30 17.988 MLS/HR Fentanyl Citrate 250 ml @ 2.5 mls/hr Q24H IV 08/19/25 16:45 08/22/25 13:39 17.5 MLS/HR Amiodarone HCl 250 ml @ 16.66 mls/ hr Q15H1M IV 08/19/25 23:00 08/20/25 18:15 16.66 MLS/HR Vasopressin 20 units/Sodium Chloride 100 ml @ 9 mls/hr Q11H7M IV 08/19/25 18:30 08/22/25 08:36 12 MLS/HR Phenylephrine HCl 80 mg/Sodium Chloride 250 ml @ 7.5 mls/hr Q24H IV 08/19/25 19:45 08/19/25 23:30 19.688 MLS/HR Norepinephrine Bitartrate 32 mg/ Sodium Chloride 250 ml @ 0.938 mls/ hr Q24H IV 08/19/25 19:45 08/22/25 02:41 1.875 MLS/HR Meropenem 50 ml @ 17 mls/hr DAILY@2200 IV 08/21/25 22:00 08/22/25 00:37 17 MLS/HR Pantoprazole Sodium 40 mg BID IV 08/22/25 10:00 08/22/25 10:19 40 MG Examination Obese female lying in the bed, intubated and mechanically ventilated General: Obese, afebrile, palor, mucosae are moist Cardiovascular: Regular S1 and S2. No murmurs, gallops or rubs. No JVD elevation. Bilateral pedal edema. Respiratory: Decreased breath sounds heard on auscultation, intubated Abdomen: Soft, nontender, nondistended, hypoactive bowel sounds, no rebound tenderness, no organomegaly, no masses Genitourinary: Abreu catheter seen Neurological: Pupils are isocoric and reactive. Intact gag reflex laboratory and microbiology Laboratory Tests 08/22/25 04:30 Test 08/22/25 04:30 Range/Units Serum Glucose 100 74-106 mg/dL Microbiology Date/Time Source Procedure Growth Status 08/18/25 10:55 Nose MRSA Screen - Final Complete 08/16/25 04:10 Urine - Abreu Port Urine Culture - Final Escherichia coli - ESBL Complete Labs and/or images reviewed: Labs reviewed by me, Image(s) reviewed by me Problem List/Assessment/Plan Problem List/Assessment/Plan Acute blood loss anemia status post 8 RBC transfusions Anemia likely normocytic versus iron-deficiency Rule out esophageal varices Cirrhosis-unspecified Hepatic encephalopathy Hyperammonemia Acute hypoxic respiratory failure status intubation RUDDY superimposed on CKD requiring hemodialysis E coli ESBL UTI Pancytopenia Hyperkalemia Plan: Recommendation: Dr. Elena: Patient is currently unstable for any GI procedure at this time. We will consider EGD once medically stabilized to rule out variceal bleeding. Recommended medical management for now.. Continue NPO. Stool occult positive, continue Protonix 40 mg IV b.i.d. Monitor H&H, keep hemoglobin greater than 7 Delay iron studies were 40-72 hours after transfusion for accurate results Ammonia trending down Bilirubin trending up, monitor CMP. LFTs unremarkable Follow up with hepatitis panel, AFP, LARRY Patient had upper and lower endoscopy at [facility] 1 year back showed no active bleeding. Drips: Norepinephrine, vasopressin, octreotide Diet: Clinimix Plan discussed with the patient's son at bedside in which all questions have been answered Case discussed with Dr. Elena Plan discussed with: Son CC Plasma Assessment Blood Product Administration S: [id number] RANDY PANDA RESIDENT Aug 22, 2025 14:08
[2025-08-22] MEDS ORDERED: CLINIMIX PER PHARMACY 0 ML IV SCH (14:15)
[2025-08-22] MEDS: SODIUM CHL 0.9% 1000 ML BAG XX ONE (16:45)
[2025-08-22] MEDS ORDERED: ALBUMIN 25% 100 ML IV PRN (17:00)
[2025-08-22] MEDS: InsuLIN REG 1unit/0.01ml Soln (100units/ml) SC SCH (17:06)
[2025-08-22] MEDS: ACCU-CHEK COMFORT CURVE STRIP VI SCH (17:06)
[2025-08-22] MEDS: EPOETIN ALFA-EPBX 10,000 UNIT/1ML VIAL SC ONE (21:22)
[2025-08-22] MEDS: AMINO ACID INFUSION IN D10W 1,000 ML IV SCH (21:23)
[2025-08-23] VITALS (108 sets, daily range): BP systolic 84–155; BP diastolic 29–81; PULSE 43–85; RESP 3–24; TEMP 97.8–98.7; O2SAT 90–100
--- NOTE | 2025-08-23 04:25 | DVH ---
CHEST RADIOGRAPH Indication: Intubated Technique: Single frontal view of the chest was obtained COMPARISON: XY CHEST PORTABLE on DOS: 08/22/25, XY CHEST XRAY 1 VIEW on DOS: 08/21/25, XY CHEST PORTABLE on DOS: 08/20/25, XY CHEST PORTABLE on DOS: 08/19/25, XY CHEST PORTABLE on DOS: 08/19/25 FINDINGS: Lines and Tubes: Interval advancement of endotracheal tube such that the tip now projects 2.7 cm above the level of the dex. Remaining lines and tubes unchanged. Lungs:Moderate diffuse increased prominence of the pulmonary vasculature. Pleura: No effusion. No pneumothorax. Cardiomediastinal contours: Cardiomegaly. Bones: Unremarkable IMPRESSION: 1. Interval advancement of endotracheal tube such that the tip now projects 2.7 cm above the level of the dex. Remaining lines and tubes unchanged. 2. Cardiomegaly and pulmonary vascular congestion.
[2025-08-23 04:35] LABS: Hemoglobin 7.9 g/dL (12.2-16.2)
[2025-08-23 04:39] LABS: Hematocrit 24.1 % (36.0-46.0); Mean Corpuscular Hemoglobin 28.2 pg (28.0-32.0); Mean Corpuscular Volume 85.4 fL (80.0-100.0); Nucleated Red Blood Cells % 0.1 %
[2025-08-23 04:55] LABS: Albumin 3.4 g/dL (3.2-4.8); Alkaline Phosphatase 48 U/L (46-116); Anion Gap 11 (5-15); BUN/Creatinine Ratio 20.6 (10.0-20.0); Carbon Dioxide 31 mmol/L (20-31); Chloride 103 mmol/L (98-107); Magnesium 1.9 mg/dL (1.6-2.6); Potassium 3.6 mmol/L (3.5-5.1); Sodium 145 mmol/L (136-145); Total Protein 5.9 g/dL (5.7-8.2)
[2025-08-23 05:02] LABS: Alanine Aminotransferase < 9 U/L (7-40); Bilirubin, Total 2.0 mg/dL (0.2-1.0); Blood Urea Nitrogen 26 mg/dL (9-23); Calcium 8.4 mg/dL (8.7-10.4); Glucose 124 mg/dL (74-106)
[2025-08-23 05:35] LABS: Triglycerides 156 mg/dL (< 150)
--- NOTE | 2025-08-23 08:07 | DVHPN2 ---
Progress Note - Dictate Date Seen: Aug 23, 2025 Medical Necessity Reason Pt with a Central, PICC or Fol: Yes The following are medically ne: PICC Line, Abreu Catheter Subjective Tolerated dialysis yesterday, intermittent Trip dysrhythmia. vital signs Vital Sign Date Time Temp Pulse Resp B/P (MAP) Pulse Ox O2 Delivery O2 Flow Rate FiO2 08/23/25 07:00 53 120/52 (74) 97 08/23/25 06:00 22 30 08/23/25 06:00 Mechanical Ventilator+ 0 08/23/25 00:15 98.4 98.4 Total Intake and Output 08/22/25 08/22/25 08/23/25 15:00 23:00 07:00 Intake Total 412.504 ml 719.190 ml 870.125 ml Output Total 525 ml 450 ml Balance 412.504 ml 194.190 ml 420.125 ml medications Current Medications Medications Dose Ordered Sig/Erum Route Start Time Stop Time Status Last Admin Dose Admin Albuterol 2.5 mg Q6HPRN PRN NEB 08/15/25 21:45 08/21/25 16:11 2.5 MG Acetaminophen 650 mg Q6HP PRN PO 08/15/25 22:15 Sevelamer HCl 800 mg TIDWM PO 08/17/25 12:00 08/17/25 17:08 800 MG Calcitriol 0.25 mcg DAILY PO 08/17/25 10:00 08/17/25 10:49 0.25 MCG Morphine Sulfate 2 mg Q30M PRN IV 08/19/25 09:15 Sodium Chloride 10 ml QSHIFT@10,22 IV 08/19/25 22:00 08/22/25 21:23 10 ML Octreotide Acetate 500 mcg/ Sodium Chloride 100 ml @ 10 mls/hr Q10H IV 08/19/25 16:15 08/23/25 04:31 10 MLS/HR Propofol 100 ml @ 4.497 mls/ hr [id number] IV 08/19/25 16:45 08/23/25 07:00 17.988 MLS/HR Fentanyl Citrate 250 ml @ 2.5 mls/hr Q24H IV 08/19/25 16:45 08/23/25 04:30 15 MLS/HR Amiodarone HCl 250 ml @ 16.66 mls/ hr Q15H1M IV 08/19/25 23:00 08/20/25 18:15 16.66 MLS/HR Vasopressin 20 units/Sodium Chloride 100 ml @ 9 mls/hr Q11H7M IV 08/19/25 18:30 08/23/25 01:41 12 MLS/HR Phenylephrine HCl 80 mg/Sodium Chloride 250 ml @ 7.5 mls/hr Q24H IV 08/19/25 19:45 08/19/25 23:30 19.688 MLS/HR Norepinephrine Bitartrate 32 mg/ Sodium Chloride 250 ml @ 0.938 mls/ hr Q24H IV 08/19/25 19:45 08/22/25 02:41 1.875 MLS/HR Pantoprazole Sodium 40 mg BID IV 08/22/25 10:00 08/22/25 21:21 40 MG Amino Acids 0 ml @ 0 mls/hr PER PHARMACY IV 08/22/25 14:15 Diagnostic Test (Pha) 1 strip Q6HR 08/22/25 18:00 08/23/25 06:14 1 STRIP Insulin Human Regular FOLLOW SLIDING SCALE Q6HR SC 08/22/25 18:00 Dextrose 50 ml UD IV 08/22/25 16:00 Amino Acids/ Electrolytes/ Dextrose 1,000 ml @ 41 mls/hr DAILY@2200 IV 08/22/25 22:00 08/22/25 21:23 41 MLS/HR Albumin Human 100 ml @ 100 mls/hr PRN PRN IV 08/22/25 17:00 Meropenem 50 ml @ 17 mls/hr Q12HR IV 08/22/25 22:00 08/22/25 21:21 17 MLS/HR objective Gen: nad, intubated heent: nc/at, mmm lungs: cta anteriorly cvs: no rub abd: soft, bowel sounds audible ext: + edema laboratory and microbiology Laboratory Tests 08/23/25 04:05 Test 08/23/25 04:05 Range/Units Serum Glucose 124 H 74-106 mg/dL Assessment/Plan Problem List/Assessment/Plan Acute kidney injury superimposed Chronic Kidney Disease secondary hemodynamic mediated/ possible ischemic ATN FeNa > 2% Acute respiratory failure, patient intubated on ventilator Congestive heart failure exacerbation Hepatic encephalopathy GI bleeding Pancytopenia Liver cirrhosis Acute pancreatitis high BUN/creatinine ratio likely due to GI bleeding Secondary hyperparathyroidism Hyperphosphatemia Persistent hyperkalemia resistant to medical treatment, resolved Recommendations - daily evaluation for kidney replacement therapy - metabolic parameters acceptable today - we will continue to monitor for any signs of meaningful kidney recovery. Plan discussed with: Other CC Plasma Assessment Blood Product Administration S: 1245 PELON MINOR MD Aug 23, 2025 08:07
--- NOTE | 2025-08-23 08:20 | ECG ---
[facility] Test Date: 2025-08-21 Test Time: 06:02:41 Pat Name: RAIZA TUCKER Department: icu Room: [address] [place] [address] A Gender: F Renal Social Worker: jaxon : 1960 Requested By: AGUILA THOMPSON Order Number: [id number] Reading MD: Dalton Zhang Measurements Intervals [place] Rate: 67 P: 0 CO: 0 QRS: 86 QRSD: 114 T: 0 QT: 510 QTc: 539 Interpretive Statements Atrial fibrillation Incomplete right bundle branch block Low voltage, precordial leads Abnormal R-wave progression, late transition Nonspecific T abnormalities, lateral leads Prolonged QT interval Electronically Signed On 08-25-2025 18:25:17 PST by Dalton Zhang Please click the below link to view image of tracing.
--- NOTE | 2025-08-23 08:21 | DVHPNRES ---
Progress Note Date Seen: Aug 23, 2025 Resident Creating Document: DONAL KILLIAN RESIDENT Medical Necessity Reason Pt with a Central, PICC or Fol: Yes The following are medically ne: PICC Line, Abreu Catheter Subjective Review of Systems Ms. Worthington is a 65 year old female with prior medical history of HFrEF, liver cirrhosis, Chronic Atrial fibrillation, Anemia with multiple blood transfusions in the past, and pulmonary hypertension, who presented to [facility] via EMS due shortness of breath. At the time of evaluation the patient is sedated and intubated, history was taken by from her sons Shashank and Dalia at bedside and from previous medical record. Per her sons, the patient has had progressively worsening bilateral leg edema for the last month associated woth worsening shortness of breath for two weeks. They state that she is compliant with her medications, however, every few months they have to take their mom to the hospital for similar symptoms, with most recent hospitalization at this institution in late May 2025. She was seen by her home health nurse on Friday (08/15/2025) night, who told the family to call EMS. Per record, on scene she was found to have a saturation of 90% on room air, she placed on 2 L NC with improvement to 92% and brought to the emergency department. On initial evaluation in the ED, she was afebrile, normocardic, MAP within normal range, saturating adequeatly on 2L NC. She was found to have anasarca reaching up to her thighs. 12 lead EKG showed atrial fibrilation. Initial labs are significant for pancytopenia, hyperkalemia, BUN 84, creatinine 2.14, BNP 207, troponins negative, and lipase 178. UA is consistent with a UTI. Chest Xray significant for hazy opacities throughout the right lung, and stable cardiomediastinal enlargement. The patient was started on IV lasix, hyperkalemia protocol, IV antibiotics, and of 1 PRBC and was admitted for further work up and management. The patient was evaluated by nephrology who initially recommended diuresis, albumin and low dose dopamine, and midodrine, however, due to progressively worsening kidney function, dialysis was recommended. On 08/18/2025 patient was found lethargic and disoriented, blood gas showed hypoxic and hypercapneic respiratory failure, she was started on BiPAP and transferred to the ICU. Mentation continued to deteriorate and required intubation for airway protection and respiratory insuffiency. Patient presented two large bloody bowel movements requiring emergent transfusion of 2 PRBCs and vasopressors. She was evaluated by gastroenterology who recommended use of PPI, ocreotide, and transfusions as needed with endoscopy when stable. On my initial evaluation in ICU, the patiet is intubated, sedated, and mechanically ventilated. She continues of 2 pressors, with drips recommended by GI. Prior medical history: HFrEF, Liver cirrhosis, Chronic Atrial Fibrillation, Anemia s/p multiple blood transfusions, and pulmonary hypertension Prior surgical history: 3 c-sections Allergies: Deny Social: Sons deny any previous drug, tobacco, or alcohol use. She recently moved to the area to live with her son, Eli. Gilbertw of systems: Unable to obtain due to patient being sedated and intubated 08/23/2025: Patient seen in the ICU. She is intubated, sedated, and mechanically ventilated on pressors. Per nurse, overnight the patient presented sinus pauses however they could not be captured on EKG. Additionally refers one bloody bowel movement overnight described as dark burgundy. She is afebrile, bradycardic, normotensive on pressors. Labs show persistent leukopenia that continues to down trend, thrombocytopenia, and improved renal function post hemodialysis. We will transition the patient to TPN. Objective vital signs Vital Sign Date Time Temp Pulse Resp B/P (MAP) Pulse Ox O2 Delivery O2 Flow Rate FiO2 08/23/25 07:00 53 120/52 (74) 97 08/23/25 06:00 22 30 08/23/25 06:00 Mechanical Ventilator+ 0 08/23/25 00:15 98.4 98.4 Total Intake and Output 08/22/25 08/22/25 08/23/25 15:00 23:00 07:00 Intake Total 412.504 ml 719.190 ml 870.125 ml Output Total 525 ml 450 ml Balance 412.504 ml 194.190 ml 420.125 ml medications Current Medications Medications Dose Ordered Sig/Erum Route Start Time Stop Time Status Last Admin Dose Admin Albuterol 2.5 mg Q6HPRN PRN NEB 08/15/25 21:45 08/21/25 16:11 2.5 MG Acetaminophen 650 mg Q6HP PRN PO 08/15/25 22:15 Sevelamer HCl 800 mg TIDWM PO 08/17/25 12:00 08/17/25 17:08 800 MG Calcitriol 0.25 mcg DAILY PO 08/17/25 10:00 08/17/25 10:49 0.25 MCG Morphine Sulfate 2 mg Q30M PRN IV 08/19/25 09:15 Sodium Chloride 10 ml QSHIFT@10,22 IV 08/19/25 22:00 08/22/25 21:23 10 ML Octreotide Acetate 500 mcg/ Sodium Chloride 100 ml @ 10 mls/hr Q10H IV 08/19/25 16:15 08/23/25 04:31 10 MLS/HR Propofol 100 ml @ 4.497 mls/ hr [id number] IV 08/19/25 16:45 08/23/25 07:00 17.988 MLS/HR Fentanyl Citrate 250 ml @ 2.5 mls/hr Q24H IV 08/19/25 16:45 08/23/25 04:30 15 MLS/HR Amiodarone HCl 250 ml @ 16.66 mls/ hr Q15H1M IV 08/19/25 23:00 08/20/25 18:15 16.66 MLS/HR Vasopressin 20 units/Sodium Chloride 100 ml @ 9 mls/hr Q11H7M IV 08/19/25 18:30 08/23/25 01:41 12 MLS/HR Phenylephrine HCl 80 mg/Sodium Chloride 250 ml @ 7.5 mls/hr Q24H IV 08/19/25 19:45 08/19/25 23:30 19.688 MLS/HR Norepinephrine Bitartrate 32 mg/ Sodium Chloride 250 ml @ 0.938 mls/ hr Q24H IV 08/19/25 19:45 08/22/25 02:41 1.875 MLS/HR Pantoprazole Sodium 40 mg BID IV 08/22/25 10:00 08/22/25 21:21 40 MG Amino Acids 0 ml @ 0 mls/hr PER PHARMACY IV 08/22/25 14:15 Diagnostic Test (Pha) 1 strip Q6HR 08/22/25 18:00 08/23/25 06:14 1 STRIP Insulin Human Regular FOLLOW SLIDING SCALE Q6HR SC 08/22/25 18:00 Dextrose 50 ml UD IV 08/22/25 16:00 Amino Acids/ Electrolytes/ Dextrose 1,000 ml @ 41 mls/hr DAILY@2200 IV 08/22/25 22:00 08/22/25 21:23 41 MLS/HR Albumin Human 100 ml @ 100 mls/hr PRN PRN IV 08/22/25 17:00 Meropenem 50 ml @ 17 mls/hr Q12HR IV 08/22/25 22:00 08/22/25 21:21 17 MLS/HR Examination General: The patient intubated, sedated, and mechanically ventilated, on pressors. HEENT: Normocephalic, atraumatic, equal sluggish pupils, no EOM, pale conjunctiva, ET tube in place, OG-tube in place Respiratory/pulmonary: Bilateral chest expansion, clear lungs bilaterally, no associated crackles or wheezes, presence of Jose M catheter in right pectoral region Cardiovascular: Irregular rhythm Abdomen: Obese, Abdomen nondistended, normal bowel sounds, soft, there is no pain to palpation in any of the abdominal quadrants, no palpable masses. Extremities: No deformities, bilateral pitting edema worse in the calves 3+, pulses are present Skin: Bruising and skin tears noted on left arm Neurological: Unable to evaluate due to sedation laboratory and microbiology Laboratory Tests 08/23/25 04:05 Test 08/23/25 04:05 Range/Units Serum Glucose 124 H 74-106 mg/dL Microbiology Date/Time Source Procedure Growth Status 08/18/25 10:55 Nose MRSA Screen - Final Complete 08/16/25 04:10 Urine - Abreu Port Urine Culture - Final Escherichia coli - ESBL Complete Problem List/Assessment/Plan Problem List/Assessment/Plan Neurology # Acute metabolic encephalopathy likely due to hyperammonemia # Sedated - Propofol 20 mcg/kg/hr - Fentanyl 175 mcg/hr Cardiovascular # Acute on chronic HFpEF heart failure -Likely precipitated by fluid overload and sepsis -Echocardiogram: LVEF 50%. mild mitral regurgitation. mild tricuspid regurgitation. mild to moderate pulmonic regurgitation -Furosemide 40 IV daily, discontinued -Bumex drip, discontinued -Jardiance, Furosemide, and carvedilol held at this time #Chronic Atrial Fibrillation - Amiodarone - held due to bradycardia # Severe Pulmonary Hypertension - Sildenfail - held - Ambrisentan 5 mg - held Respiratory # Acute hypoxic respiratory failure # Acute hypercapneic respiratory failure # Ventilator -Intubated (08/19/2025) -On [facility] vent : VCAC Mode RR 22 TV 450ml, PEEP Of 8 and FiO2 of 30% # Pulmonary Edema with bilateral pleural effusioins - Chest xray: Stable appearing pulmonary edema and small bilateral pleural effusions. # Pneumonia ruled out - Azithromycin discontinued GI # Acute hypovolemic shock likely due to Lower GI Bleed - 8 PRBC transfusions, 4 FFPs, 3 Platelet transfusions - Per GI: Patient will go for endoscopy once more stable - Sandostatin drip - Protonix 40 mg IV BID - Vasopressin 0.04 U/min - Quadlevo 4 mcg/min # Liver cirrhosis likely due to fatty liver disease # Cholelithaisis - Abdominal US: The gallbladder wall measures 0.3 cm and is normal in size. Gallstones are noted. # Peptic ulcer prophylaxis -Pantoprazole 40 mg IV daily # Abreu catheter present draining clear urine # Complicated UTI - Urine culture: E coli ESBL - Meropenem 1 g IV BID - Repeat UA and UC have been ordered Nephrology # RUDDY on CKD likely due to VMN/hemodynamic requiring dialysis # Hyperkalemia, resolved - Monitor potassium levels # Hypernatremia - Monitor Infectious disease # Possible Septic Shock due to UTI - Meropenem 1 g IV BID - Urine Culture: E. Coli ESBL - Vasopressin 0.04 U/min - Quadlevo 4 mcg/min Hem/onc # Acute hypovolemic shock likely due to Lower GI Bleed - 8 PRBC transfusions, 4 FFPs, 3 Platelet transfusions - Per GI: Patient will go for endoscopy once more stable - Sandostatin drip - Protonix 40 mg IV BID # Pancytopenia - Possibly associated to liver disease DVT prophylaxis: SCDs Nutrition: TPN Lines -R PICC line 08/19 -Abreu catheter 08/19 -ET tube: 08/19 -Jose M catheter 08/19 Drips during [facility] ventilation Propofol 20 mcg/kg/min Fentanyl 175 mcg/hr Vasopressin 0.04 U/min Quadlevo 6 mcg/min Sandostatin 50 mcg/h Repeat CBC has been ordered for this evening, if Hb has dropped by 1g , platelet transfusion will be ordered. Patient is in critical condition, all findings and implications have been relayed to her sons at bedside. Questions and concerns were thoroughly addressed, prognosis is poor. Critical care time 84 minutes excluding procedure. Code status discussed greater than 20 minutes: Full CODE STATUS. Family at bedside explained about the condition of the patient Plan discussed with Dr. Gallo Plan discussed with: Son, Other (Nurse (Rosita)) My Orders My Orders Orders - DONAL KILLIAN RESIDENT Procedure Category Date Status Time Meropenem 1gm Ivpb PHA 08/22/25 In Process (Merrem 1gm/50ml) 22:00 Abg W/ Co-Ox RT 08/23/25 Logged 04:00 Chest Xray 1 View XY 08/23/25 Resulted 04:00 CC Plasma Assessment Blood Product Administration S: [id number] Visit Coding STANDARD RES Billing Provider: ALNIA GALLO MD Date of Service if different f: Aug 23, 2025 Common Visit Codes: 20815-FTIBPCKW CARE 30-74 MIN, 10331-HMAJRFCH CARE-EACH +30MIN Date of Service: Aug 24, 2025 Billing Provider: ALINA GALLO MD Common Visit Codes: 74325-QEWZKHIM CARE 30-74 MIN, 68293-ETHOBNLG CARE-EACH +30MIN DONAL KILLIAN Aug 23, 2025 08:21 ALINA GALLO MD Aug 24, 2025 15:18
[2025-08-23 08:24] LABS: Base Excess 4.4 mmol/L (-2.0-3.0)
[2025-08-23 11:07] LABS: Anti-Nuclear Antibody Direct Negative (Negative)
--- NOTE | 2025-08-23 13:08 | ECG ---
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
--- NOTE | 2025-08-23 15:55 | DVHPN2 ---
Progress Note Date Seen: Aug 23, 2025 Resident Creating Document: RANDY PANDA RESIDENT Medical Necessity Reason Pt with a Central, PICC or Fol: Yes The following are medically ne: PICC Line, Abreu Catheter Subjective Review of Systems 65 y/o F pt with PMH of cirrhosis admitted with SOB and edema, acute resp failure, on vent. GI team consulted last evening with hematochezia. I spoke with RN in detail. Pt was being treated for acute resp failure, was on BiPAP, noted to have rectal bleed yesterday PM, I was contacted. Pt was intubated and on 3 pressors. No hematemesis or melena noted. Family unsure of previous GI procedures. Wishes to be full code. Chart reviewed 08/22 - patient seen and examined, intubated, on 2 pressors. Abdomen hypoactive. Soft. 08/23-patient seen and examined. On Levophed and vaso. Abdomen normoactive. Overnight 1 bowel movement which was burgundy in color. Objective vital signs Vital Sign Date Time Temp Pulse Resp B/P (MAP) Pulse Ox O2 Delivery O2 Flow Rate FiO2 08/23/25 14:17 30 08/23/25 14:17 22 97 Mechanical Ventilator+ 08/23/25 13:59 57 116/52 (73) 08/23/25 08:30 98.2 98.2 08/23/25 06:00 0 Total Intake and Output 08/22/25 08/22/25 08/23/25 15:00 23:00 07:00 Intake Total 412.504 ml 719.190 ml 870.125 ml Output Total 525 ml 450 ml Balance 412.504 ml 194.190 ml 420.125 ml medications Current Medications Medications Dose Ordered Sig/Erum Route Start Time Stop Time Status Last Admin Dose Admin Albuterol 2.5 mg Q6HPRN PRN NEB 08/15/25 21:45 08/21/25 16:11 2.5 MG Acetaminophen 650 mg Q6HP PRN PO 08/15/25 22:15 Sevelamer HCl 800 mg TIDWM PO 08/17/25 12:00 08/17/25 17:08 800 MG Morphine Sulfate 2 mg Q30M PRN IV 08/19/25 09:15 Sodium Chloride 10 ml QSHIFT@ IV 08/19/25 22:00 08/23/25 09:58 10 ML Octreotide Acetate 500 mcg/ Sodium Chloride 100 ml @ 10 mls/hr Q10H IV 08/19/25 16:15 08/23/25 14:58 10 MLS/HR Propofol 100 ml @ 4.497 mls/ hr [id number] IV 08/19/25 16:45 08/23/25 12:33 17.988 MLS/HR Fentanyl Citrate 250 ml @ 2.5 mls/hr Q24H IV 08/19/25 16:45 08/23/25 04:30 15 MLS/HR Vasopressin 20 units/Sodium Chloride 100 ml @ 9 mls/hr Q11H7M IV 08/19/25 18:30 08/23/25 09:49 12 MLS/HR Phenylephrine HCl 80 mg/Sodium Chloride 250 ml @ 7.5 mls/hr Q24H IV 08/19/25 19:45 08/19/25 23:30 19.688 MLS/HR Norepinephrine Bitartrate 32 mg/ Sodium Chloride 250 ml @ 0.938 mls/ hr Q24H IV 08/19/25 19:45 08/23/25 09:50 1.875 MLS/HR Pantoprazole Sodium 40 mg BID IV 08/22/25 10:00 08/23/25 09:58 40 MG Amino Acids 0 ml @ 0 mls/hr PER PHARMACY IV 08/22/25 14:15 Diagnostic Test (Pha) 1 strip Q6HR 08/22/25 18:00 08/23/25 12:32 1 STRIP Insulin Human Regular FOLLOW SLIDING SCALE Q6HR SC 08/22/25 18:00 Dextrose 50 ml UD IV 08/22/25 16:00 Amino Acids/ Electrolytes/ Dextrose 1,000 ml @ 41 mls/hr DAILY@2200 IV 08/22/25 22:00 08/22/25 21:23 41 MLS/HR Albumin Human 100 ml @ 100 mls/hr PRN PRN IV 08/22/25 17:00 Meropenem 50 ml @ 17 mls/hr Q12HR IV 08/22/25 22:00 08/23/25 09:58 17 MLS/HR Examination Obese female lying in the bed, intubated and mechanically ventilated General: Obese, afebrile, palor, mucosae are moist Cardiovascular: Regular S1 and S2. No murmurs, gallops or rubs. No JVD elevation. Bilateral pedal edema. Respiratory: Decreased breath sounds heard on auscultation, intubated Abdomen: Soft, nontender, nondistended, hypoactive bowel sounds, no rebound tenderness, no organomegaly, no masses Genitourinary: Abreu catheter seen Neurological: Pupils are isocoric and reactive. Intact gag reflex laboratory and microbiology Laboratory Tests 08/23/25 04:05 Test 08/23/25 04:05 Range/Units Serum Glucose 124 H 74-106 mg/dL Microbiology Date/Time Source Procedure Growth Status 08/18/25 10:55 Nose MRSA Screen - Final Complete 08/16/25 04:10 Urine - Abreu Port Urine Culture - Final Escherichia coli - ESBL Complete Labs and/or images reviewed: Labs reviewed by me, Image(s) reviewed by me Problem List/Assessment/Plan Problem List/Assessment/Plan Acute blood loss anemia status post 8 RBC transfusions Anemia likely normocytic versus iron-deficiency Rule out esophageal varices Cirrhosis-unspecified Hepatic encephalopathy Hyperammonemia Acute hypoxic respiratory failure status intubation RUDDY superimposed on CKD requiring hemodialysis E coli ESBL UTI Pancytopenia Hyperkalemia Plan: Recommendation: Dr. Elena: Patient is currently unstable for any GI procedure at this time. We will consider EGD once medically stabilized to rule out variceal bleeding. Recommended medical management for now.. Continue NPO. Stool occult positive, continue Protonix 40 mg IV b.i.d, Sandostatin Monitor H&H, keep hemoglobin greater than 7 Delay iron studies were 40-72 hours after transfusion for accurate results. Iron panel and ferritin in a.m.. Consider CT angio abdomen and pelvis if active bleeding noted and RUDDY improves Ammonia trending down Bilirubin trending down, monitor CMP. LFTs unremarkable Hepatitis panel negative, AFP unremarkable, LARRY negative Patient had upper and lower endoscopy at [facility] 1 year back showed no active bleeding. Drips: Norepinephrine, vasopressin, octreotide Diet: Clinimix Plan discussed with the patient's son at bedside in which all questions have been answered Case discussed with Dr. Elena Plan discussed with: Other (Nurse slowly) My Orders My Orders Orders - RANDY PANDA RESIDENT Procedure Category Date Status Time Glucose Blood PHA 08/22/25 In Process (Accu-Chek Comfort 18:00 Insulin R (Human) PHA 08/22/25 In Process (Insulin R) 18:00 Dextrose 50% Syringe PHA 08/22/25 In Process 16:00 Amino Acid Infusion PHA 08/22/25 In Process In D10w (Clinimix 4. 22:00 CC Plasma Assessment Blood Product Administration S: 1245 RANDY PANDA RESIDENT Aug 23, 2025 15:55
[2025-08-23] MEDS ORDERED: TPN PER PHARMACY 0 ML IV SCH (16:30)
[2025-08-23] MEDS: POTASSIUM PHOSPHATE 11 MEQ in SODIUM CHL 0.9% 100 ML IV ONE (17:24)
[2025-08-23 17:54] LABS: Hematocrit 24.8 % (36.0-46.0); Hemoglobin 8.2 g/dL (12.2-16.2); Mean Corpuscular Hemoglobin 28.2 pg (28.0-32.0); Mean Corpuscular Volume 85.8 fL (80.0-100.0); Nucleated Red Blood Cells % 0.2 %
[2025-08-23 19:13] LABS: Anisocytosis Slight
[2025-08-23] MEDS: MEROPENEM 1GM IVPB 50 ML IV SCH (21:39)
[2025-08-23] MEDS: DOPamine 1600MCG/ML D5W 250 ML IV ONE (21:41)
[2025-08-23] MEDS ORDERED: DOPamine 1600MCG/ML D5W 250 ML IV SCH (21:45)
[2025-08-23] MEDS: DOPamine 1600MCG/ML D5W 250 ML IV SCH (22:05)
[2025-08-24] VITALS (108 sets, daily range): BP systolic 99–140; BP diastolic 37–72; PULSE 52–79; RESP 0–26; TEMP 96.9–98.7; O2SAT 91–100
[2025-08-24 05:08] LABS: Hematocrit 24.5 % (36.0-46.0); Hemoglobin 8.1 g/dL (12.2-16.2); Mean Corpuscular Hemoglobin 28.7 pg (28.0-32.0); Mean Corpuscular Volume 86.6 fL (80.0-100.0); Nucleated Red Blood Cells % 0.3 %
[2025-08-24 05:18] LABS: Albumin 3.3 g/dL (3.2-4.8); Alkaline Phosphatase 47 U/L (46-116); Anion Gap 7 (5-15); BUN/Creatinine Ratio 19.0 (10.0-20.0); Carbon Dioxide 31 mmol/L (20-31); Chloride 101 mmol/L (98-107); Magnesium 1.7 mg/dL (1.6-2.6); Sodium 139 mmol/L (136-145); Total Protein 5.7 g/dL (5.7-8.2)
[2025-08-24 05:19] LABS: Iron 59.0 ug/dL (50-170)
--- NOTE | 2025-08-24 05:20 | DVH ---
CHEST RADIOGRAPH INDICATION: Intubated TECHNIQUE: Single frontal view of the chest was obtained COMPARISON: XY CHEST XRAY 1 VIEW on DOS: 08/23/25, XY CHEST PORTABLE on DOS: 08/22/25, XY CHEST XRAY 1 VIEW on DOS: 08/21/25, XY CHEST PORTABLE on DOS: 08/20/25, XY CHEST PORTABLE on DOS: 08/19/25 FINDINGS: Lines and Tubes: Slight interval retraction of the endotracheal tube such that the tip now projects 4.7 cm above the level of the dex. Remaining lines and tubes unchanged. Lungs: Stable appearing diffuse Increased prominence of the pulmonary vasculature and small bilateral pleural effusions. No pneumothorax. Cardiomediastinal contours: Cardiomegaly. Bones: Unremarkable IMPRESSION: 1. Slight interval retraction of the endotracheal tube such that the tip now projects 4.7 cm above the level of the dex. Remaining lines and tubes unchanged. 2. Cardiomegaly, pulmonary vascular congestion and bilateral pleural effusions.
[2025-08-24 05:22] LABS: Total Iron Binding Capacity 286.0 ug/dL (250-425)
[2025-08-24 05:27] LABS: Alanine Aminotransferase < 9 U/L (7-40); Bilirubin, Total 1.9 mg/dL (0.2-1.0); Blood Urea Nitrogen 24 mg/dL (9-23); Calcium 7.7 mg/dL (8.7-10.4); Glucose 264 mg/dL (74-106); Potassium 3.4 mmol/L (3.5-5.1)
[2025-08-24] MEDS: POTASSIUM CHL 20MEQ/100ML 100 ML IV SCH (06:25)
[2025-08-24] MEDS: MAGNESIUM SULFATE 1GM/100ML 100 ML IV ONE (06:25)
[2025-08-24 07:24] LABS: Base Excess 4.4 mmol/L (-2.0-3.0)
--- NOTE | 2025-08-24 09:53 | DVHPNRES ---
Progress Note Date Seen: Aug 24, 2025 Resident Creating Document: DONAL KILLIAN RESIDENT Medical Necessity Reason Pt with a Central, PICC or Fol: Yes The following are medically ne: PICC Line, Abreu Catheter Subjective Review of Systems Ms. Worthington is a 65 year old female with prior medical history of HFrEF, liver cirrhosis, Chronic Atrial fibrillation, Anemia with multiple blood transfusions in the past, and pulmonary hypertension, who presented to [facility] via EMS due shortness of breath. At the time of evaluation the patient is sedated and intubated, history was taken by from her sons Shashank and Dalia at bedside and from previous medical record. Per her sons, the patient has had progressively worsening bilateral leg edema for the last month associated woth worsening shortness of breath for two weeks. They state that she is compliant with her medications, however, every few months they have to take their mom to the hospital for similar symptoms, with most recent hospitalization at this institution in late May 2025. She was seen by her home health nurse on Friday (08/15/2025) night, who told the family to call EMS. Per record, on scene she was found to have a saturation of 90% on room air, she placed on 2 L NC with improvement to 92% and brought to the emergency department. On initial evaluation in the ED, she was afebrile, normocardic, MAP within normal range, saturating adequeatly on 2L NC. She was found to have anasarca reaching up to her thighs. 12 lead EKG showed atrial fibrilation. Initial labs are significant for pancytopenia, hyperkalemia, BUN 84, creatinine 2.14, BNP 207, troponins negative, and lipase 178. UA is consistent with a UTI. Chest Xray significant for hazy opacities throughout the right lung, and stable cardiomediastinal enlargement. The patient was started on IV lasix, hyperkalemia protocol, IV antibiotics, and of 1 PRBC and was admitted for further work up and management. The patient was evaluated by nephrology who initially recommended diuresis, albumin and low dose dopamine, and midodrine, however, due to progressively worsening kidney function, dialysis was recommended. On 08/18/2025 patient was found lethargic and disoriented, blood gas showed hypoxic and hypercapneic respiratory failure, she was started on BiPAP and transferred to the ICU. Mentation continued to deteriorate and required intubation for airway protection and respiratory insuffiency. Patient presented two large bloody bowel movements requiring emergent transfusion of 2 PRBCs and vasopressors. She was evaluated by gastroenterology who recommended use of PPI, ocreotide, and transfusions as needed with endoscopy when stable. On my initial evaluation in ICU, the patiet is intubated, sedated, and mechanically ventilated. She continues of 2 pressors, with drips recommended by GI. Prior medical history: HFrEF, Liver cirrhosis, Chronic Atrial Fibrillation, Anemia s/p multiple blood transfusions, and pulmonary hypertension Prior surgical history: 3 c-sections Allergies: Deny Social: Sons deny any previous drug, tobacco, or alcohol use. She recently moved to the area to live with her son, Eli. Gilbertw of systems: Unable to obtain due to patient being sedated and intubated 08/24/2025: Patient seen in the ICU. She is intubated, sedated, and mechanically ventilated on pressors. Per nurse, the patient was bradycardic overnight with heart rate in the 30s, for which dopamine was started. Levophed was able to be discontinued. Additionally they report another frankly bloody bowel movements with clots. CBC from last night showed interval increase in Hb and platelets, which remained stable per morning labs. White count continued to decrease. Vasopressin will be discontinued. We will continue to monitor. 08/23/2025: Patient seen in the ICU. She is intubated, sedated, and mechanically ventilated on pressors. Per nurse, overnight the patient presented sinus pauses however they could not be captured on EKG. Additionally refers one bloody bowel movement overnight described as dark burgundy. She is afebrile, bradycardic, normotensive on pressors. Labs show persistent leukopenia that continues to down trend, thrombocytopenia, and improved renal function post hemodialysis. We will transition the patient to TPN. Objective vital signs Vital Sign Date Time Temp Pulse Resp B/P (MAP) Pulse Ox O2 Delivery O2 Flow Rate FiO2 08/24/25 09:47 62 23 119/57 (77) 96 30 08/24/25 06:00 Mechanical Ventilator+ 08/24/25 04:00 97.6 97.6 08/23/25 06:00 0 Total Intake and Output 08/23/25 08/23/25 08/24/25 15:00 23:00 07:00 Intake Total 512.063 ml 1088.620 ml 1044.965 ml Output Total 750 ml 1000 ml Balance 512.063 ml 338.620 ml 44.965 ml medications Current Medications Medications Dose Ordered Sig/Erum Route Start Time Stop Time Status Last Admin Dose Admin Albuterol 2.5 mg Q6HPRN PRN NEB 08/15/25 21:45 08/21/25 16:11 2.5 MG Acetaminophen 650 mg Q6HP PRN PO 08/15/25 22:15 Sevelamer HCl 800 mg TIDWM PO 08/17/25 12:00 08/24/25 09:40 800 MG Morphine Sulfate 2 mg Q30M PRN IV 08/19/25 09:15 Sodium Chloride 10 ml QSHIFT@10,22 IV 08/19/25 22:00 08/24/25 09:40 10 ML Octreotide Acetate 500 mcg/ Sodium Chloride 100 ml @ 10 mls/hr Q10H IV 08/19/25 16:15 08/24/25 02:10 10 MLS/HR Propofol 100 ml @ 4.497 mls/ hr [id number] IV 08/19/25 16:45 08/24/25 04:03 26.982 MLS/HR Fentanyl Citrate 250 ml @ 2.5 mls/hr Q24H IV 08/19/25 16:45 08/23/25 22:01 15 MLS/HR Vasopressin 20 units/Sodium Chloride 100 ml @ 9 mls/hr Q11H7M IV 08/19/25 18:30 08/24/25 02:20 12 MLS/HR Phenylephrine HCl 80 mg/Sodium Chloride 250 ml @ 7.5 mls/hr Q24H IV 08/19/25 19:45 08/19/25 23:30 19.688 MLS/HR Norepinephrine Bitartrate 32 mg/ Sodium Chloride 250 ml @ 0.938 mls/ hr Q24H IV 08/19/25 19:45 08/23/25 09:50 1.875 MLS/HR Pantoprazole Sodium 40 mg BID IV 08/22/25 10:00 08/24/25 09:38 40 MG Diagnostic Test (Pha) 1 strip Q6HR 08/22/25 18:00 08/24/25 05:50 1 STRIP Insulin Human Regular FOLLOW SLIDING SCALE Q6HR SC 08/22/25 18:00 08/24/25 05:51 2 UNITS Dextrose 50 ml UD IV 08/22/25 16:00 Amino Acids/ Electrolytes/ Dextrose 1,000 ml @ 41 mls/hr DAILY@2200 IV 08/22/25 22:00 08/24/25 21:59 08/23/25 21:40 41 MLS/HR Albumin Human 100 ml @ 100 mls/hr PRN PRN IV 08/22/25 17:00 Amino Acids 0 ml @ 0 mls/hr PER PHARMACY IV 08/23/25 16:30 Meropenem 50 ml @ 17 mls/hr Q8HR IV 08/23/25 22:00 08/24/25 05:50 17 MLS/HR Dopamine HCl/ Dextrose 250 ml @ 10.995 mls/ hr [id number] IV 08/23/25 22:00 08/23/25 22:05 10.995 MLS/HR Potassium Chloride 100 ml @ 50 mls/hr Q2H IV 08/24/25 06:15 08/24/25 10:14 08/24/25 09:40 50 MLS/HR Examination General: The patient intubated, sedated, and mechanically ventilated, on pressors. HEENT: Normocephalic, atraumatic, equal sluggish pupils, no EOM, pale conjunctiva, ET tube in place, OG-tube in place Respiratory/pulmonary: Bilateral chest expansion, clear lungs bilaterally, no associated crackles or wheezes, presence of Jose M catheter in right pectoral region Cardiovascular: Irregular rhythm Abdomen: Obese, Abdomen nondistended, normal bowel sounds, soft, there is no pain to palpation in any of the abdominal quadrants, no palpable masses. Extremities: No deformities, bilateral pitting edema worse in the calves 3+, pulses are present Skin: Bruising and skin tears noted on left arm, skin tears noted on the left calf Neurological: Unable to evaluate due to sedation laboratory and microbiology Laboratory Tests 08/24/25 03:50 Test 08/24/25 03:50 Range/Units Serum Glucose 264 H 74-106 mg/dL Microbiology Date/Time Source Procedure Growth Status 08/18/25 10:55 Nose MRSA Screen - Final Complete 08/16/25 04:10 Urine - Abreu Port Urine Culture - Final Escherichia coli - ESBL Complete Problem List/Assessment/Plan Problem List/Assessment/Plan Neurology # Acute metabolic encephalopathy likely due to hyperammonemia # Sedated - Propofol 20 mcg/kg/hr - Fentanyl 175 mcg/hr Cardiovascular # Acute on chronic HFpEF heart failure -Likely precipitated by fluid overload and sepsis -Echocardiogram: LVEF 50%. mild mitral regurgitation. mild tricuspid regurgitation. mild to moderate pulmonic regurgitation -Furosemide 40 IV daily, discontinued -Bumex drip, discontinued -Jardiance, Furosemide, and carvedilol held at this time - Furosemide 20 mg IV once #Chronic Atrial Fibrillation - Amiodarone - held due to bradycardia # Severe Pulmonary Hypertension - Sildenfail - held - Ambrisentan 5 mg - held Respiratory # Acute hypoxic respiratory failure # Acute hypercapneic respiratory failure # Ventilator -Intubated (08/19/2025) [facility] VCAC Mode RR 22 TV 450ml, PEEP Of 8 and FiO2 of 30% # Pulmonary Edema with bilateral pleural effusioins - Chest xray: Stable appearing pulmonary edema and small bilateral pleural effusions. # Pneumonia ruled out - Azithromycin discontinued GI # Acute hypovolemic shock likely due to Lower GI Bleed - 8 PRBC transfusions, 4 FFPs, 3 Platelet transfusions - Per GI: Patient will go for endoscopy once more stable - Sandostatin drip - Protonix 40 mg IV BID - Vasopressin 0.04 U/min - Quadlevo 4 mcg/min # Liver cirrhosis likely due to fatty liver disease # Cholelithaisis - Abdominal US: The gallbladder wall measures 0.3 cm and is normal in size. Gallstones are noted. # Peptic ulcer prophylaxis -Pantoprazole 40 mg IV daily # Abreu catheter present draining clear urine # Complicated UTI - Urine culture: E coli ESBL - Meropenem 1 g IV BID - Repeat UA and UC have been ordered Nephrology # RUDDY on CKD likely due to VMN/hemodynamic requiring dialysis # Hyperkalemia, resolved - Monitor potassium levels # Hypernatremia - Monitor Infectious disease # Possible Septic Shock due to UTI - Meropenem 1 g IV BID - Urine Culture: E. Coli ESBL - Vasopressin discontinued - Quadlevo discontinued Hem/onc # Acute hypovolemic shock likely due to Lower GI Bleed - 8 PRBC transfusions, 4 FFPs, 3 Platelet transfusions - Per GI: Patient will go for endoscopy once more stable - Sandostatin drip - Protonix 40 mg IV BID # Pancytopenia - Possibly associated to liver disease DVT prophylaxis: SCDs Nutrition: TPN Lines -R PICC line 08/19 -Abreu catheter 08/19 -ET tube: 08/19 -Jose M catheter 08/19 Drips during mech ventilation Propofol 20 mcg/kg/min Fentanyl 175 mcg/hr Vasopressin discontinued Quadlevo discontinued Sandostatin 50 mcg/h Patient is currently on vasopressin will be discontinued. SBP to be > 90. Dopamine is on for support of heart rate. Patient is in critical condition, all findings and implications have been relayed to her sons at bedside. Questions and concerns were thoroughly addressed, prognosis is poor. Critical care time 82 minutes excluding procedure. Code status discussed greater than 20 minutes: Full CODE STATUS. Family at bedside explained about the condition of the patient Plan discussed with Dr. Gallo Plan discussed with: Son, Other (Nurse (Kareen)) My Orders My Orders Orders - DONAL KILLIAN Procedure Category Date Status Time Urinalysis LAB 08/24/25 Logged 04:00 Urine Bacterial APRYL 08/24/25 In Process Culture 04:00 Abg W/ Co-Ox RT 08/24/25 Logged 04:00 Chest Xray 1 View XY 08/24/25 Resulted 04:00 Tpn Per Pharmacy PHA 08/23/25 In Process 16:30 Tpn Per Pharmacy GILDARDO 08/23/25 In Process 22:00 Meropenem 1gm Ivpb PHA 08/23/25 In Process (Merrem 1gm/50ml) 22:00 Dopamine 1600mcg/Ml PHA 08/23/25 In Process [id number] 22:00 CC Plasma Assessment Blood Product Administration S: [id number] Visit Coding STANDARD RES Billing Provider: ALINA GALLO MD Date of Service if different f: Aug 24, 2025 Common Visit Codes: 28879-UCBIDSBK CARE 30-74 MIN, 57485-KIYNIQLI CARE-EACH +30MIN DONAL KILLIAN Aug 24, 2025 09:53 ALINA GALLO MD Aug 25, 2025 11:10
[2025-08-24] MEDS: POTASSIUM PHOSPHATE 44 MEQ in D5W 5% 250 ML IV ONE (11:00)
[2025-08-24 15:47] LABS: Urine Protein, UAD TRACE (Negative)
[2025-08-24] MEDS: FUROSEMIDE 20 MG/2 ML VIAL IV ONE (16:38)
--- NOTE | 2025-08-24 17:06 | DVHPN2 ---
Progress Note Date Seen: Aug 24, 2025 Resident Creating Document: RANDY PANDA RESIDENT Medical Necessity Reason Pt with a Central, PICC or Fol: Yes The following are medically ne: PICC Line, Abreu Catheter Subjective Review of Systems 65 y/o F pt with PMH of cirrhosis admitted with SOB and edema, acute resp failure, on vent. GI team consulted last evening with hematochezia. I spoke with RN in detail. Pt was being treated for acute resp failure, was on BiPAP, noted to have rectal bleed yesterday PM, I was contacted. Pt was intubated and on 3 pressors. No hematemesis or melena noted. Family unsure of previous GI procedures. Wishes to be full code. Chart reviewed 08/22 - patient seen and examined, intubated, on 2 pressors. Abdomen hypoactive. Soft. 08/23-patient seen and examined. On Levophed and vaso. Abdomen normoactive. Overnight 1 bowel movement which was burgundy in color. 08/24 - patient seen and examined. Abdomen normoactive. NPO, NG tube in place. Overnight patient had moderate size bloody stool. Objective vital signs Vital Sign Date Time Temp Pulse Resp B/P (MAP) Pulse Ox O2 Delivery O2 Flow Rate FiO2 08/24/25 16:38 104/52 08/24/25 16:18 61 23 94 30 08/24/25 16:00 Mechanical Ventilator+ 08/24/25 04:00 97.6 97.6 08/23/25 06:00 0 Total Intake and Output 08/23/25 08/23/25 08/24/25 15:00 23:00 07:00 Intake Total 512.063 ml 1088.620 ml 1111.960 ml Output Total 750 ml 1000 ml Balance 512.063 ml 338.620 ml 111.960 ml medications Current Medications Medications Dose Ordered Sig/Erum Route Start Time Stop Time Status Last Admin Dose Admin Albuterol 2.5 mg Q6HPRN PRN NEB 08/15/25 21:45 08/21/25 16:11 2.5 MG Acetaminophen 650 mg Q6HP PRN PO 08/15/25 22:15 Morphine Sulfate 2 mg Q30M PRN IV 08/19/25 09:15 Sodium Chloride 10 ml QSHIFT@ IV 08/19/25 22:00 08/24/25 09:40 10 ML Octreotide Acetate 500 mcg/ Sodium Chloride 100 ml @ 10 mls/hr Q10H IV 08/19/25 16:15 08/24/25 02:10 10 MLS/HR Propofol 100 ml @ 4.497 mls/ hr [id number] IV 08/19/25 16:45 08/24/25 04:03 26.982 MLS/HR Fentanyl Citrate 250 ml @ 2.5 mls/hr Q24H IV 08/19/25 16:45 08/24/25 13:07 12.5 MLS/HR Vasopressin 20 units/Sodium Chloride 100 ml @ 9 mls/hr Q11H7M IV 08/19/25 18:30 08/24/25 02:20 12 MLS/HR Phenylephrine HCl 80 mg/Sodium Chloride 250 ml @ 7.5 mls/hr Q24H IV 08/19/25 19:45 08/19/25 23:30 19.688 MLS/HR Norepinephrine Bitartrate 32 mg/ Sodium Chloride 250 ml @ 0.938 mls/ hr Q24H IV 08/19/25 19:45 08/23/25 09:50 1.875 MLS/HR Pantoprazole Sodium 40 mg BID IV 08/22/25 10:00 08/24/25 09:38 40 MG Diagnostic Test (Pha) 1 strip Q6HR 08/22/25 18:00 08/24/25 12:00 1 STRIP Insulin Human Regular FOLLOW SLIDING SCALE Q6HR SC 08/22/25 18:00 08/24/25 05:51 2 UNITS Dextrose 50 ml UD IV 08/22/25 16:00 Amino Acids/ Electrolytes/ Dextrose 1,000 ml @ 41 mls/hr DAILY@2200 IV 08/22/25 22:00 08/24/25 21:59 08/23/25 21:40 41 MLS/HR Albumin Human 100 ml @ 100 mls/hr PRN PRN IV 08/22/25 17:00 Amino Acids 0 ml @ 0 mls/hr PER PHARMACY IV 08/23/25 16:30 Meropenem 50 ml @ 17 mls/hr Q8HR IV 08/23/25 22:00 08/24/25 14:39 17 MLS/HR Dopamine HCl/ Dextrose 250 ml @ 10.995 mls/ hr [id number] IV 08/23/25 22:00 08/23/25 22:05 10.995 MLS/HR Sodium Chloride 10 meq/Potassium Chloride 10 meq/ Calcium Gluconate 4.65 meq/ Magnesium Sulfate 4 meq/ Multivitamins 10 ml/Amino Acids/ Dextrose/Purified Water 1,028.5 ml @ 43 mls/hr [id number] IV 08/24/25 22:00 08/25/25 21:59 Examination Obese female lying in the bed, intubated and mechanically ventilated General: Obese, afebrile, palor, mucosae are moist Cardiovascular: Regular S1 and S2. No murmurs, gallops or rubs. No JVD elevation. Bilateral pedal edema. Respiratory: Decreased breath sounds heard on auscultation, intubated Abdomen: Soft, nontender, nondistended, hypoactive bowel sounds, no rebound tenderness, no organomegaly, no masses Genitourinary: Abreu catheter seen Neurological: Pupils are isocoric and reactive. Intact gag reflex laboratory and microbiology Laboratory Tests 08/24/25 03:50 Test 08/24/25 03:50 Range/Units Serum Glucose 264 H 74-106 mg/dL Microbiology Date/Time Source Procedure Growth Status 08/23/25 16:30 Urine - Abreu Port Urine Culture - Preliminary No growth Resulted 08/18/25 10:55 Nose MRSA Screen - Final Complete Labs and/or images reviewed: Labs reviewed by me, Image(s) reviewed by me Problem List/Assessment/Plan Problem List/Assessment/Plan Acute blood loss anemia status post 8 RBC transfusions Anemia likely normocytic versus iron-deficiency Rule out esophageal varices Cirrhosis-unspecified Hepatic encephalopathy Hyperammonemia Acute hypoxic respiratory failure status intubation RUDDY superimposed on CKD requiring hemodialysis E coli ESBL UTI Pancytopenia ? Cirrhosis related on isolation Hyperkalemia Plan: Recommendation: Dr. Elena: Patient is experiencing 1 bloody bowel movement every day. Pressor requirement trending down. We will consider EGD once medically stabilized to rule out variceal bleeding. Recommended medical management for now. Transfuse 1 unit platelets as the patient is actively bleeding Continue NPO. Stool occult positive, continue Protonix 40 mg IV b.i.d, Sandostatin Monitor H&H, keep hemoglobin greater than 7 Delay iron studies were 40-72 hours after transfusion for accurate results. Iron panel and ferritin in a.m.. Consider CT angio abdomen and pelvis if active bleeding noted and RUDDY improves Ammonia trending down Bilirubin trending down, monitor CMP. LFTs unremarkable Hepatitis panel negative, AFP unremarkable, LARRY negative Patient had upper and lower endoscopy at [facility] 1 year back showed no active bleeding. Drips: vasopressin, octreotide Diet: Clinimix, transition to TPN Plan discussed with the patient's son at bedside in which all questions have been answered Case discussed with Dr. Elena Plan discussed with: Other (Primary m.ute Marie) CC Plasma Assessment Blood Product Administration S: [id number] RANDY PANDA RESIDENT Aug 24, 2025 17:06
--- NOTE | 2025-08-24 19:07 | DVHPN2 ---
Progress Note - Dictate Date Seen: Aug 24, 2025 Medical Necessity Reason Pt with a Central, PICC or Fol: Yes The following are medically ne: PICC Line, Abreu Catheter Subjective seen earlier this morning. urine volumes non-oliguric vital signs Vital Sign Date Time Temp Pulse Resp B/P (MAP) Pulse Ox O2 Delivery O2 Flow Rate FiO2 08/24/25 18:38 64 26 103/53 (70) 100 30 08/24/25 16:00 98.7 98.7 08/24/25 16:00 Mechanical Ventilator+ 08/23/25 06:00 0 Total Intake and Output 08/23/25 08/23/25 08/24/25 15:00 23:00 07:00 Intake Total 512.063 ml 1088.620 ml 1111.960 ml Output Total 750 ml 1000 ml Balance 512.063 ml 338.620 ml 111.960 ml medications Current Medications Medications Dose Ordered Sig/Erum Route Start Time Stop Time Status Last Admin Dose Admin Albuterol 2.5 mg Q6HPRN PRN NEB 08/15/25 21:45 08/24/25 18:44 2.5 MG Acetaminophen 650 mg Q6HP PRN PO 08/15/25 22:15 Morphine Sulfate 2 mg Q30M PRN IV 08/19/25 09:15 Sodium Chloride 10 ml QSHIFT@10,22 IV 08/19/25 22:00 08/24/25 09:40 10 ML Octreotide Acetate 500 mcg/ Sodium Chloride 100 ml @ 10 mls/hr Q10H IV 08/19/25 16:15 08/24/25 02:10 10 MLS/HR Propofol 100 ml @ 4.497 mls/ hr [id number] IV 08/19/25 16:45 08/24/25 04:03 26.982 MLS/HR Fentanyl Citrate 250 ml @ 2.5 mls/hr Q24H IV 08/19/25 16:45 08/24/25 13:07 12.5 MLS/HR Phenylephrine HCl 80 mg/Sodium Chloride 250 ml @ 7.5 mls/hr Q24H IV 08/19/25 19:45 08/19/25 23:30 19.688 MLS/HR Norepinephrine Bitartrate 32 mg/ Sodium Chloride 250 ml @ 0.938 mls/ hr Q24H IV 08/19/25 19:45 08/23/25 09:50 1.875 MLS/HR Pantoprazole Sodium 40 mg BID IV 08/22/25 10:00 08/24/25 09:38 40 MG Diagnostic Test (Pha) 1 strip Q6HR 08/22/25 18:00 08/24/25 18:00 1 STRIP Insulin Human Regular FOLLOW SLIDING SCALE Q6HR SC 08/22/25 18:00 08/24/25 05:51 2 UNITS Dextrose 50 ml UD IV 08/22/25 16:00 Amino Acids/ Electrolytes/ Dextrose 1,000 ml @ 41 mls/hr DAILY@2200 IV 08/22/25 22:00 08/24/25 21:59 08/23/25 21:40 41 MLS/HR Albumin Human 100 ml @ 100 mls/hr PRN PRN IV 08/22/25 17:00 Amino Acids 0 ml @ 0 mls/hr PER PHARMACY IV 08/23/25 16:30 Meropenem 50 ml @ 17 mls/hr Q8HR IV 08/23/25 22:00 08/24/25 14:39 17 MLS/HR Dopamine HCl/ Dextrose 250 ml @ 10.995 mls/ hr [id number] IV 08/23/25 22:00 08/23/25 22:05 10.995 MLS/HR Sodium Chloride 10 meq/Potassium Chloride 10 meq/ Calcium Gluconate 4.65 meq/ Magnesium Sulfate 4 meq/ Multivitamins 10 ml/Amino Acids/ Dextrose/Purified Water 1,028.5 ml @ 43 mls/hr [id number] IV 08/24/25 22:00 08/25/25 21:59 Vasopressin 20 units/Sodium Chloride 100 ml @ 9 mls/hr Q11H7M IV 08/24/25 18:15 objective Gen: nad, intubated heent: nc/at, mmm lungs: cta anteriorly cvs: no rub abd: soft, bowel sounds audible ext: + edema laboratory and microbiology Laboratory Tests 08/24/25 03:50 Test 08/24/25 03:50 Range/Units Serum Glucose 264 H 74-106 mg/dL Assessment/Plan Problem List/Assessment/Plan Acute kidney injury superimposed Chronic Kidney Disease secondary hemodynamic mediated/ possible ischemic ATN FeNa > 2% Acute respiratory failure, patient intubated on ventilator Congestive heart failure exacerbation Hepatic encephalopathy GI bleeding Pancytopenia Liver cirrhosis Acute pancreatitis high BUN/creatinine ratio likely due to GI bleeding Secondary hyperparathyroidism Hyperphosphatemia Persistent hyperkalemia resistant to medical treatment, resolved Recommendations - currently without urgent indication for dialysis - will monitor for signs of RUDDY recovery- pt maintaing urine volumes Plan discussed with: Other CC Plasma Assessment Blood Product Administration S: [id number] PELON MINOR MD Aug 24, 2025 19:07
[2025-08-24] MEDS: VASOPRESSIN 20 UNITS in SODIUM CHL 0.9% 99 ML IV SCH (21:26)
[2025-08-25] VITALS (110 sets, daily range): BP systolic 84–148; BP diastolic 30–73; PULSE 48–82; RESP 0–25; TEMP 97.8–98.8; O2SAT 93–100
[2025-08-25 03:16] LABS: Hematocrit 24.8 % (36.0-46.0); Hemoglobin 8.0 g/dL (12.2-16.2)
[2025-08-25 03:18] LABS: Mean Corpuscular Hemoglobin 27.9 pg (28.0-32.0); Mean Corpuscular Volume 86.7 fL (80.0-100.0); Nucleated Red Blood Cells % 0.1 %
[2025-08-25 03:29] LABS: Albumin 3.4 g/dL (3.2-4.8); Alkaline Phosphatase 54 U/L (46-116); Anion Gap 6 (5-15); BUN/Creatinine Ratio 19.8 (10.0-20.0); Chloride 104 mmol/L (98-107); Magnesium 1.8 mg/dL (1.6-2.6); Potassium 4.0 mmol/L (3.5-5.1); Sodium 142 mmol/L (136-145); Total Protein 6.0 g/dL (5.7-8.2)
[2025-08-25 03:30] LABS: Alanine Aminotransferase < 9 U/L (7-40); Bilirubin, Total 2.1 mg/dL (0.2-1.0); Blood Urea Nitrogen 25 mg/dL (9-23); Calcium 8.0 mg/dL (8.7-10.4); Carbon Dioxide 32 mmol/L (20-31); Glucose 121 mg/dL (74-106)
[2025-08-25 03:48] LABS: INR 1.21 (0.9-1.15); Partial Thromboplastin Time 30.9 SEC (24.5-34.5); Prothrombin Time 12.6 sec (9.3-11.8)
[2025-08-25] MEDS: DEXTROSE (50%) 50ML SYRG IV SCH (06:09)
--- NOTE | 2025-08-25 06:22 | DVH ---
CHEST RADIOGRAPH INDICATION: Intubated TECHNIQUE: Single frontal view of the chest was obtained COMPARISON: XY CHEST XRAY 1 VIEW on DOS: 08/24/25. FINDINGS: Lines and Tubes: The endotracheal tube terminates 4.6 cm above the dex. The enteric tube courses below the left hemidiaphragm and the tip extends outside the field of view. There is a right central venous catheter with its tip terminating in the superior vena cava. Lungs: Increased interstitial prominence. No focal consolidation. Pleura: No effusion. No pneumothorax. Cardiomediastinal contours: Cardiomegaly. Bones: No acute osseous abnormality. IMPRESSION: 1. Cardiomegaly with increased interstitial prominence which may reflect pulmonary edema.
[2025-08-25 07:32] LABS: Base Excess 4.3 mmol/L (-2.0-3.0)
--- NOTE | 2025-08-25 10:58 | DVHPNRES ---
Progress Note Date Seen: Aug 25, 2025 Resident Creating Document: DONAL KILLIAN RESIDENT Medical Necessity Reason Pt with a Central, PICC or Fol: Yes The following are medically ne: PICC Line, Abreu Catheter Subjective Review of Systems Ms. Worthington is a 65 year old female with prior medical history of HFrEF, liver cirrhosis, Chronic Atrial fibrillation, Anemia with multiple blood transfusions in the past, and pulmonary hypertension, who presented to [facility] via EMS due shortness of breath. At the time of evaluation the patient is sedated and intubated, history was taken by from her sons Shashank and Dalia at bedside and from previous medical record. Per her sons, the patient has had progressively worsening bilateral leg edema for the last month associated woth worsening shortness of breath for two weeks. They state that she is compliant with her medications, however, every few months they have to take their mom to the hospital for similar symptoms, with most recent hospitalization at this institution in late May 2025. She was seen by her home health nurse on Friday (08/15/2025) night, who told the family to call EMS. Per record, on scene she was found to have a saturation of 90% on room air, she placed on 2 L NC with improvement to 92% and brought to the emergency department. On initial evaluation in the ED, she was afebrile, normocardic, MAP within normal range, saturating adequeatly on 2L NC. She was found to have anasarca reaching up to her thighs. 12 lead EKG showed atrial fibrilation. Initial labs are significant for pancytopenia, hyperkalemia, BUN 84, creatinine 2.14, BNP 207, troponins negative, and lipase 178. UA is consistent with a UTI. Chest Xray significant for hazy opacities throughout the right lung, and stable cardiomediastinal enlargement. The patient was started on IV lasix, hyperkalemia protocol, IV antibiotics, and of 1 PRBC and was admitted for further work up and management. The patient was evaluated by nephrology who initially recommended diuresis, albumin and low dose dopamine, and midodrine, however, due to progressively worsening kidney function, dialysis was recommended. On 08/18/2025 patient was found lethargic and disoriented, blood gas showed hypoxic and hypercapneic respiratory failure, she was started on BiPAP and transferred to the ICU. Mentation continued to deteriorate and required intubation for airway protection and respiratory insuffiency. Patient presented two large bloody bowel movements requiring emergent transfusion of 2 PRBCs and vasopressors. She was evaluated by gastroenterology who recommended use of PPI, ocreotide, and transfusions as needed with endoscopy when stable. On my initial evaluation in ICU, the patiet is intubated, sedated, and mechanically ventilated. She continues of 2 pressors, with drips recommended by GI. Prior medical history: HFrEF, Liver cirrhosis, Chronic Atrial Fibrillation, Anemia s/p multiple blood transfusions, and pulmonary hypertension Prior surgical history: 3 c-sections Allergies: Deny Social: Sons deny any previous drug, tobacco, or alcohol use. She recently moved to the area to live with her son, Eli. Gilbertw of systems: Unable to obtain due to patient being sedated and intubated 08/25/2025: Patient seen in the ICU. She is intubated, sedated, mechanically ventilated, on vasopressin. Per nurse, attempts were made to titrate down the vasopressin overnight guided by keeping SBP > 90, however, SBP dropped down to the 70s, requiring vaso to be titrated back up to 0.03. This morning she was titrated down to 0.02. Dopamine was titrated down to 1. Sedation has also been decreased. No further bradycardic episodes reported. 1 unit of platelets was transfused by GI. 08/24/2025: Patient seen in the ICU. She is intubated, sedated, and mechanically ventilated on pressors. Per nurse, the patient was bradycardic overnight with heart rate in the 30s, for which dopamine was started. Levophed was able to be discontinued. Additionally they report another frankly bloody bowel movements with clots. CBC from last night showed interval increase in Hb and platelets, which remained stable per morning labs. White count continued to decrease. Vasopressin will be discontinued. We will continue to monitor. 08/23/2025: Patient seen in the ICU. She is intubated, sedated, and mechanically ventilated on pressors. Per nurse, overnight the patient presented sinus pauses however they could not be captured on EKG. Additionally refers one bloody bowel movement overnight described as dark burgundy. She is afebrile, bradycardic, normotensive on pressors. Labs show persistent leukopenia that continues to down trend, thrombocytopenia, and improved renal function post hemodialysis. We will transition the patient to TPN. Objective vital signs Vital Sign Date Time Temp Pulse Resp B/P (MAP) Pulse Ox O2 Delivery O2 Flow Rate FiO2 08/25/25 09:20 65 22 97/46 (63) 96 30 08/25/25 08:00 Mechanical Ventilator+ 08/25/25 07:30 98.8 98.8 Total Intake and Output 08/24/25 08/24/25 08/25/25 15:00 23:00 07:00 Intake Total 521.960 ml 542.960 ml 524.960 ml Output Total 1055 ml 1120 ml Balance 521.960 ml -512.040 ml -595.040 ml medications Current Medications Medications Dose Ordered Sig/Erum Route Start Time Stop Time Status Last Admin Dose Admin Albuterol 2.5 mg Q6HPRN PRN NEB 08/15/25 21:45 08/25/25 02:20 2.5 MG Acetaminophen 650 mg Q6HP PRN PO 08/15/25 22:15 Morphine Sulfate 2 mg Q30M PRN IV 08/19/25 09:15 Sodium Chloride 10 ml QSHIFT@10,22 IV 08/19/25 22:00 08/25/25 09:40 10 ML Octreotide Acetate 500 mcg/ Sodium Chloride 100 ml @ 10 mls/hr Q10H IV 08/19/25 16:15 08/25/25 04:46 10 MLS/HR Propofol 100 ml @ 4.497 mls/ hr [id number] IV 08/19/25 16:45 08/25/25 07:51 8.994 MLS/HR Fentanyl Citrate 250 ml @ 2.5 mls/hr Q24H IV 08/19/25 16:45 08/25/25 04:48 15 MLS/HR Phenylephrine HCl 80 mg/Sodium Chloride 250 ml @ 7.5 mls/hr Q24H IV 08/19/25 19:45 08/19/25 23:30 19.688 MLS/HR Norepinephrine Bitartrate 32 mg/ Sodium Chloride 250 ml @ 0.938 mls/ hr Q24H IV 08/19/25 19:45 08/23/25 09:50 1.875 MLS/HR Pantoprazole Sodium 40 mg BID IV 08/22/25 10:00 08/25/25 09:39 40 MG Diagnostic Test (Pha) 1 strip Q6HR 08/22/25 18:00 08/25/25 06:01 1 STRIP Insulin Human Regular FOLLOW SLIDING SCALE Q6HR SC 08/22/25 18:00 08/24/25 05:51 2 UNITS Dextrose 50 ml UD IV 08/22/25 16:00 08/25/25 06:09 50 ML Albumin Human 100 ml @ 100 mls/hr PRN PRN IV 08/22/25 17:00 Amino Acids 0 ml @ 0 mls/hr PER PHARMACY IV 08/23/25 16:30 Meropenem 50 ml @ 17 mls/hr Q8HR IV 08/23/25 22:00 08/25/25 06:13 17 MLS/HR Dopamine HCl/ Dextrose 250 ml @ 10.995 mls/ hr [id number] IV 08/23/25 22:00 08/24/25 19:59 10.995 MLS/HR Sodium Chloride 10 meq/Potassium Chloride 10 meq/ Calcium Gluconate 4.65 meq/ Magnesium Sulfate 4 meq/ Multivitamins 10 ml/Amino Acids/ Dextrose/Purified Water 1,028.5 ml @ 43 mls/hr [id number] IV 08/24/25 22:00 08/25/25 21:59 08/24/25 22:07 43 MLS/HR Vasopressin 20 units/Sodium Chloride 100 ml @ 9 mls/hr Q11H7M IV 08/24/25 18:15 08/25/25 04:49 6 MLS/HR Examination General: The patient intubated, sedated, and mechanically ventilated, on pressors. HEENT: Normocephalic, atraumatic, equal sluggish pupils, no EOM, pale conjunctiva, ET tube in place, OG-tube in place Respiratory/pulmonary: Bilateral chest expansion, clear lungs bilaterally, no associated crackles or wheezes, presence of Jose M catheter in right pectoral region Cardiovascular: Irregular rhythm Abdomen: Obese, Abdomen nondistended, normal bowel sounds, soft, there is no pain to palpation in any of the abdominal quadrants, no palpable masses. Extremities: No deformities, bilateral pitting edema worse in the calves 3+, pulses are present Skin: Bruising and skin tears noted on left arm, skin tears noted on the left calf Neurological: Unable to evaluate due to sedation laboratory and microbiology Laboratory Tests 08/25/25 02:51 Test 08/25/25 02:51 Range/Units Serum Glucose 121 H 74-106 mg/dL Microbiology Date/Time Source Procedure Growth Status 08/23/25 16:30 Urine - Abreu Port Urine Culture - Preliminary No growth Resulted 08/18/25 10:55 Nose MRSA Screen - Final Complete Problem List/Assessment/Plan Problem List/Assessment/Plan Neurology # Acute metabolic encephalopathy likely due to hyperammonemia # Sedated - Propofol 20 mcg/kg/hr - Fentanyl 175 mcg/hr Cardiovascular # Acute on chronic HFpEF heart failure -Likely precipitated by fluid overload and sepsis -Echocardiogram: LVEF 50%. mild mitral regurgitation. mild tricuspid regurgitation. mild to moderate pulmonic regurgitation -Furosemide 40 IV daily, discontinued -Bumex drip, discontinued -Jardiance, Furosemide, and carvedilol held at this time - Furosemide 20 mg IV once #Chronic Atrial Fibrillation - Amiodarone - held due to bradycardia # Severe Pulmonary Hypertension - Sildenfail - held - Ambrisentan 5 mg - held # Bradycardia - Midodrine 10 mg TID - Dopamine 2 mcg Respiratory # Acute hypoxic respiratory failure # Acute hypercapneic respiratory failure # Ventilator -Intubated (08/19/2025) -On [facility] vent : VCAC Mode RR 22 TV 450ml, PEEP Of 8 and FiO2 of 30% # Pulmonary Edema with bilateral pleural effusioins - Chest xray: Stable appearing pulmonary edema and small bilateral pleural effusions. # Pneumonia ruled out - Azithromycin discontinued GI # Acute hypovolemic shock likely due to Lower GI Bleed - 8 PRBC transfusions, 4 FFPs, 3 Platelet transfusions - Per GI: Patient will go for endoscopy once more stable - Sandostatin drip - Protonix 40 mg IV BID - Vasopressin discontinued - Quadlevo discontinued # Liver cirrhosis likely due to fatty liver disease # Cholelithaisis - Abdominal US: The gallbladder wall measures 0.3 cm and is normal in size. Gallstones are noted. # Peptic ulcer prophylaxis -Pantoprazole 40 mg IV daily # Abreu catheter present draining clear urine # Complicated UTI - Urine culture: E coli ESBL - Meropenem 1 g IV q8 hrs - UA shows signs of improved infection - UC preliminary shows no growth Nephrology # RUDDY on CKD likely due to VMN/hemodynamic requiring dialysis # Hyperkalemia, resolved - Monitor potassium levels # Hypernatremia - Monitor Infectious disease # Possible Septic Shock due to UTI - Meropenem 1 g IV BID - Urine Culture: E. Coli ESBL - Vasopressin discontinued - Quadlevo discontinued Hem/onc # Acute hypovolemic shock likely due to Lower GI Bleed - 8 PRBC transfusions, 4 FFPs, 3 Platelet transfusions - Per GI: Patient will go for endoscopy once more stable - Sandostatin drip - Protonix 40 mg IV BID # Pancytopenia - Possibly associated to liver disease DVT prophylaxis: SCDs Nutrition: TPN Lines -R PICC line 08/19 -Abreu catheter 08/19 -ET tube: 08/19 -Jose M catheter 08/19 Drips during mech ventilation Propofol 15 mcg/kg/min Fentanyl 150 mcg/hr Vasopressin discontinued Dopamine 2 Quadlevo discontinued Sandostatin 50 mcg/h Patient is currently on vasopressin will be discontinued. SBP to be > 90. Dopamine is on for support of heart rate. Patient is in critical condition, all findings and implications have been relayed to her sons at bedside. Questions and concerns were thoroughly addressed, prognosis is poor. Critical care time 82 minutes excluding procedure. Code status discussed greater than 20 minutes: Full CODE STATUS. Family at bedside explained about the condition of the patient Plan discussed with Dr. Gallo Plan discussed with: Son, Other My Orders My Orders Orders - DONAL KILLIAN Procedure Category Date Status Time Abg W/ Co-Ox RT 08/25/25 Logged 04:00 Chest Xray 1 View XY 08/25/25 Resulted 04:00 CC Plasma Assessment Blood Product Administration S: 1245 Visit Coding STANDARD RES Billing Provider: ALINA GALLO MD Date of Service if different f: Aug 25, 2025 Common Visit Codes: 70751-[id number] CARE 30-74 MIN, 81299-ZAOOXANK CARE-EACH +30MIN DONAL KILLIAN Aug 25, 2025 10:58 ALINA GALLO MD Aug 27, 2025 11:53
--- NOTE | 2025-08-25 11:56 | DVHPN2 ---
Progress Note Date Seen: Aug 25, 2025 Resident Creating Document: RANDY PANDA RESIDENT Medical Necessity Reason Pt with a Central, PICC or Fol: Yes The following are medically ne: PICC Line, Abreu Catheter Subjective Review of Systems 65 y/o F pt with PMH of cirrhosis admitted with SOB and edema, acute resp failure, on vent. GI team consulted last evening with hematochezia. I spoke with RN in detail. Pt was being treated for acute resp failure, was on BiPAP, noted to have rectal bleed yesterday PM, I was contacted. Pt was intubated and on 3 pressors. No hematemesis or melena noted. Family unsure of previous GI procedures. Wishes to be full code. Chart reviewed 08/22 - patient seen and examined, intubated, on 2 pressors. Abdomen hypoactive. Soft. 08/23-patient seen and examined. On Levophed and vaso. Abdomen normoactive. Overnight 1 bowel movement which was burgundy in color. 08/24 - patient seen and examined. Abdomen normoactive. NPO, NG tube in place. Overnight patient had moderate size bloody stool. 08/25-abdomen normoactive. On vasopressin. NG to LIS, draining around 50 cc of blackish secretions. Objective vital signs Vital Sign Date Time Temp Pulse Resp B/P (MAP) Pulse Ox O2 Delivery O2 Flow Rate FiO2 08/25/25 11:41 97.8 62 12 97/37 97.8 08/25/25 09:20 96 30 08/25/25 08:00 Mechanical Ventilator+ Total Intake and Output 08/24/25 08/24/25 08/25/25 15:00 23:00 07:00 Intake Total 521.960 ml 542.960 ml 524.960 ml Output Total 1055 ml 1120 ml Balance 521.960 ml -512.040 ml -595.040 ml medications Current Medications Medications Dose Ordered Sig/Erum Route Start Time Stop Time Status Last Admin Dose Admin Albuterol 2.5 mg Q6HPRN PRN NEB 08/15/25 21:45 08/25/25 02:20 2.5 MG Acetaminophen 650 mg Q6HP PRN PO 08/15/25 22:15 Morphine Sulfate 2 mg Q30M PRN IV 08/19/25 09:15 Sodium Chloride 10 ml QSHIFT@,22 IV 08/19/25 22:00 08/25/25 09:40 10 ML Octreotide Acetate 500 mcg/ Sodium Chloride 100 ml @ 10 mls/hr Q10H IV 08/19/25 16:15 08/25/25 04:46 10 MLS/HR Propofol 100 ml @ 4.497 mls/ hr [id number] IV 08/19/25 16:45 08/25/25 07:51 8.994 MLS/HR Fentanyl Citrate 250 ml @ 2.5 mls/hr Q24H IV 08/19/25 16:45 08/25/25 04:48 15 MLS/HR Norepinephrine Bitartrate 32 mg/ Sodium Chloride 250 ml @ 0.938 mls/ hr Q24H IV 08/19/25 19:45 08/23/25 09:50 1.875 MLS/HR Pantoprazole Sodium 40 mg BID IV 08/22/25 10:00 08/25/25 09:39 40 MG Diagnostic Test (Pha) 1 strip Q6HR 08/22/25 18:00 08/25/25 06:01 1 STRIP Insulin Human Regular FOLLOW SLIDING SCALE Q6HR SC 08/22/25 18:00 08/24/25 05:51 2 UNITS Dextrose 50 ml UD IV 08/22/25 16:00 08/25/25 06:09 50 ML Albumin Human 100 ml @ 100 mls/hr PRN PRN IV 08/22/25 17:00 Amino Acids 0 ml @ 0 mls/hr PER PHARMACY IV 08/23/25 16:30 Meropenem 50 ml @ 17 mls/hr Q8HR IV 08/23/25 22:00 08/25/25 06:13 17 MLS/HR Dopamine HCl/ Dextrose 250 ml @ 10.995 mls/ hr [id number] IV 08/23/25 22:00 08/24/25 19:59 10.995 MLS/HR Sodium Chloride 10 meq/Potassium Chloride 10 meq/ Calcium Gluconate 4.65 meq/ Magnesium Sulfate 4 meq/ Multivitamins 10 ml/Amino Acids/ Dextrose/Purified Water 1,028.5 ml @ 43 mls/hr [id number] IV 08/24/25 22:00 08/25/25 21:59 08/24/25 22:07 43 MLS/HR Vasopressin 20 units/Sodium Chloride 100 ml @ 9 mls/hr Q11H7M IV 08/24/25 18:15 08/25/25 04:49 6 MLS/HR Potassium Chloride 10 meq/ Potassium Phosphate 10 meq/ Calcium Gluconate 4.65 meq/ Magnesium Sulfate 8 meq/ Multivitamins 10 ml/Amino Acids/ Dextrose/Purified Water 1,029.2727 ml @ 43 mls/hr [id number] IV 08/25/25 22:00 08/26/25 21:59 Examination Obese female lying in the bed, intubated and mechanically ventilated General: Obese, afebrile, palor, mucosae are moist Cardiovascular: Regular S1 and S2. No murmurs, gallops or rubs. No JVD elevation. Bilateral pedal edema. Respiratory: Decreased breath sounds heard on auscultation, intubated Abdomen: Soft, nontender, nondistended, hypoactive bowel sounds, no rebound tenderness, no organomegaly, no masses Genitourinary: Abreu catheter seen Neurological: Pupils are isocoric and reactive. Intact gag reflex laboratory and microbiology Laboratory Tests 08/25/25 02:51 Test 08/25/25 02:51 Range/Units Serum Glucose 121 H 74-106 mg/dL Microbiology Date/Time Source Procedure Growth Status 08/23/25 16:30 Urine - Abreu Port Urine Culture - Preliminary No growth Resulted 08/18/25 10:55 Nose MRSA Screen - Final Complete Labs and/or images reviewed: Labs reviewed by me, Image(s) reviewed by me Problem List/Assessment/Plan Problem List/Assessment/Plan Acute blood loss anemia status post 8 RBC transfusions Anemia likely normocytic versus iron-deficiency Rule out esophageal varices Cirrhosis-unspecified Hepatic encephalopathy Hyperammonemia Acute hypoxic respiratory failure status intubation RUDDY superimposed on CKD requiring hemodialysis E coli ESBL UTI Pancytopenia ? Cirrhosis related on isolation Hyperkalemia Plan: Recommendation: Dr. Elena: Patient is experiencing 1 bloody bowel movement every day. Pressor requirement trending down. We will consider EGD once medically stabilized to rule out variceal bleeding. Recommended medical management for now. Please Transfuse 1 unit platelets as the patient is actively bleeding, order pending since 08/24 Continue NPO. Stool occult positive, continue Protonix 40 mg IV b.i.d, Sandostatin Monitor H&H, keep hemoglobin greater than 7 Delay iron studies were 40-72 hours after transfusion for accurate results. Iron panel and ferritin in a.m.. Consider CT angio abdomen and pelvis if active bleeding noted and RUDDY improves Ammonia trending down Bilirubin trending down, monitor CMP. LFTs unremarkable Hepatitis panel negative, AFP unremarkable, LARRY negative Patient had upper and lower endoscopy at [facility] 1 year back showed no active bleeding. Drips: vasopressin, octreotide Diet: Clinimix, transition to TPN Plan discussed with the patient's son at bedside in which all questions have been answered Case discussed with Dr. Elena Plan discussed with: Son (At bedside) CC Plasma Assessment Blood Product Administration S: [id number] RANDY PANDA RESIDENT Aug 25, 2025 11:56
[2025-08-25] MEDS: MIDODRINE HCL 10 MG TAB NG ONE (14:00)
--- NOTE | 2025-08-25 16:29 | DVHPN2 ---
Progress Note - Dictate Date Seen: Aug 25, 2025 Medical Necessity Reason Pt with a Central, PICC or Fol: Yes The following are medically ne: PICC Line, Abreu Catheter Subjective Patient seen earlier this morning, late entry. Clinically unchanged vital signs Vital Sign Date Time Temp Pulse Resp B/P (MAP) Pulse Ox O2 Delivery O2 Flow Rate FiO2 08/25/25 15:36 63 22 130/73 (92) 95 30 08/25/25 13:55 97.8 97.8 08/25/25 12:00 Mechanical Ventilator+ Total Intake and Output 08/24/25 08/24/25 08/25/25 14:59 22:59 06:59 Intake Total 523.960 ml 521.960 ml 584.960 ml Output Total 1055 ml 1120 ml Balance 523.960 ml -533.040 ml -535.040 ml medications Current Medications Medications Dose Ordered Sig/Erum Route Start Time Stop Time Status Last Admin Dose Admin Albuterol 2.5 mg Q6HPRN PRN NEB 08/15/25 21:45 08/25/25 02:20 2.5 MG Acetaminophen 650 mg Q6HP PRN PO 08/15/25 22:15 Morphine Sulfate 2 mg Q30M PRN IV 08/19/25 09:15 Sodium Chloride 10 ml QSHIFT@10,22 IV 08/19/25 22:00 08/25/25 09:40 10 ML Octreotide Acetate 500 mcg/ Sodium Chloride 100 ml @ 10 mls/hr Q10H IV 08/19/25 16:15 08/25/25 04:46 10 MLS/HR Propofol 100 ml @ 4.497 mls/ hr [id number] IV 08/19/25 16:45 08/25/25 07:51 8.994 MLS/HR Fentanyl Citrate 250 ml @ 2.5 mls/hr Q24H IV 08/19/25 16:45 08/25/25 04:48 15 MLS/HR Norepinephrine Bitartrate 32 mg/ Sodium Chloride 250 ml @ 0.938 mls/ hr Q24H IV 08/19/25 19:45 08/23/25 09:50 1.875 MLS/HR Pantoprazole Sodium 40 mg BID IV 08/22/25 10:00 08/25/25 09:39 40 MG Diagnostic Test (Pha) 1 strip Q6HR 08/22/25 18:00 08/25/25 12:00 1 STRIP Insulin Human Regular FOLLOW SLIDING SCALE Q6HR SC 08/22/25 18:00 08/24/25 05:51 2 UNITS Dextrose 50 ml UD IV 08/22/25 16:00 08/25/25 06:09 50 ML Albumin Human 100 ml @ 100 mls/hr PRN PRN IV 08/22/25 17:00 Amino Acids 0 ml @ 0 mls/hr PER PHARMACY IV 08/23/25 16:30 Meropenem 50 ml @ 17 mls/hr Q8HR IV 08/23/25 22:00 08/25/25 14:00 17 MLS/HR Dopamine HCl/ Dextrose 250 ml @ 10.995 mls/ hr [id number] IV 08/23/25 22:00 08/24/25 19:59 10.995 MLS/HR Sodium Chloride 10 meq/Potassium Chloride 10 meq/ Calcium Gluconate 4.65 meq/ Magnesium Sulfate 4 meq/ Multivitamins 10 ml/Amino Acids/ Dextrose/Purified Water 1,028.5 ml @ 43 mls/hr [id number] IV 08/24/25 22:00 08/25/25 21:59 08/24/25 22:07 43 MLS/HR Vasopressin 20 units/Sodium Chloride 100 ml @ 9 mls/hr Q11H7M IV 08/24/25 18:15 08/25/25 04:49 6 MLS/HR Potassium Chloride 10 meq/ Potassium Phosphate 10 meq/ Calcium Gluconate 4.65 meq/ Magnesium Sulfate 8 meq/ Multivitamins 10 ml/Amino Acids/ Dextrose/Purified Water 1,029.2727 ml @ 43 mls/hr [id number] IV 08/25/25 22:00 08/26/25 21:59 Midodrine 10 mg TID@0600,1200,1800 NG 08/25/25 18:00 objective Gen: nad, intubated heent: nc/at, mmm lungs: cta anteriorly cvs: no rub abd: soft, bowel sounds audible ext: + edema laboratory and microbiology Laboratory Tests 08/25/25 02:51 Test 08/25/25 02:51 Range/Units Serum Glucose 121 H 74-106 mg/dL Assessment/Plan Problem List/Assessment/Plan Acute kidney injury superimposed Chronic Kidney Disease secondary hemodynamic mediated/ possible ischemic ATN FeNa > 2% Acute respiratory failure, patient intubated on ventilator Congestive heart failure exacerbation Hepatic encephalopathy GI bleeding Pancytopenia Liver cirrhosis Acute pancreatitis high BUN/creatinine ratio likely due to GI bleeding Secondary hyperparathyroidism Hyperphosphatemia Persistent hyperkalemia resistant to medical treatment, resolved Recommendations - GFR, essentially unchanged/ holding steady without dialysis. - suspect recovery from acute kidney injury, will continue to monitor - loop diuretic on an as-needed basis Plan discussed with: Other CC Plasma Assessment Blood Product Administration S: [id number] PELON MINOR MD Aug 25, 2025 16:29
[2025-08-25] MEDS: MIDODRINE HCL 10 MG TAB NG SCH (18:16)
[2025-08-25 18:24] LABS: Hemoglobin 8.3 g/dL (12.2-16.2)
[2025-08-25 18:26] LABS: Hematocrit 26.7 % (36.0-46.0); Mean Corpuscular Hemoglobin 28.5 pg (28.0-32.0); Mean Corpuscular Volume 91.2 fL (80.0-100.0)
[2025-08-25 19:21] LABS: Total Cells Counted 100.0 (100)
[2025-08-25 19:22] LABS: Anisocytosis Slight
[2025-08-26] VITALS (106 sets, daily range): BP systolic 97–138; BP diastolic 28–59; PULSE 50–77; RESP 0–22; TEMP 98.1–98.6; O2SAT 89–100
[2025-08-26 03:46] LABS: Hematocrit 24.9 % (36.0-46.0); Hemoglobin 8.2 g/dL (12.2-16.2); Mean Corpuscular Hemoglobin 28.6 pg (28.0-32.0); Mean Corpuscular Volume 87.2 fL (80.0-100.0); Nucleated Red Blood Cells % 0.2 %
[2025-08-26 04:09] LABS: Alkaline Phosphatase 55 U/L (46-116); Anion Gap 8 (5-15); BUN/Creatinine Ratio 22.9 (10.0-20.0); Carbon Dioxide 30 mmol/L (20-31); Chloride 102 mmol/L (98-107); Magnesium 1.8 mg/dL (1.6-2.6); Potassium 3.6 mmol/L (3.5-5.1); Sodium 140 mmol/L (136-145)
[2025-08-26 04:16] LABS: Alanine Aminotransferase < 9 U/L (7-40); Albumin 3.0 g/dL (3.2-4.8); Bilirubin, Total 2.0 mg/dL (0.2-1.0); Blood Urea Nitrogen 27 mg/dL (9-23); Calcium 7.7 mg/dL (8.7-10.4); Glucose 158 mg/dL (74-106); Total Protein 5.3 g/dL (5.7-8.2)
[2025-08-26] MEDS: MAGNESIUM SULFATE 1GM/100ML 100 ML IV ONE (05:40)
--- NOTE | 2025-08-26 06:01 | DVH ---
CHEST RADIOGRAPH Indication: intubated Technique: Single frontal view of the chest was obtained COMPARISON: XY CHEST XRAY 1 VIEW on DOS: 08/25/25, XY CHEST XRAY 1 VIEW on DOS: 08/24/25, XY CHEST XRAY 1 VIEW on DOS: 08/23/25, XY CHEST PORTABLE on DOS: 08/22/25, XY CHEST XRAY 1 VIEW on DOS: 08/21/25 FINDINGS: Lines and Tubes: Endotracheal tube, enteric catheter and left PICC in satisfactory position. Right central venous catheter in satisfactory position. Lungs: Pulmonary vascular congestion. Pleura: No effusion. No pneumothorax. Cardiomediastinal contours: Unchanged cardiomegaly. Bones: Unremarkable IMPRESSION: Lines and tubes in satisfactory position. No significant interval change.
[2025-08-26 08:30] LABS: Base Excess 3.4 mmol/L (-2.0-3.0)
[2025-08-26] MEDS: POTASSIUM PHOSPHATE 44 MEQ in D5W 5% 250 ML IV ONE (09:12)
--- NOTE | 2025-08-26 11:33 | DVHPNRES ---
Progress Note Date Seen: Aug 26, 2025 Resident Creating Document: DONAL KILLIAN RESIDENT Medical Necessity Reason Pt with a Central, PICC or Fol: Yes The following are medically ne: PICC Line, Abreu Catheter Subjective Review of Systems Ms. Worthington is a 65 year old female with prior medical history of HFrEF, liver cirrhosis, Chronic Atrial fibrillation, Anemia with multiple blood transfusions in the past, and pulmonary hypertension, who presented to [facility] via EMS due shortness of breath. At the time of evaluation the patient is sedated and intubated, history was taken by from her sons Shashank and Dalia at bedside and from previous medical record. Per her sons, the patient has had progressively worsening bilateral leg edema for the last month associated woth worsening shortness of breath for two weeks. They state that she is compliant with her medications, however, every few months they have to take their mom to the hospital for similar symptoms, with most recent hospitalization at this institution in late May 2025. She was seen by her home health nurse on Friday (08/15/2025) night, who told the family to call EMS. Per record, on scene she was found to have a saturation of 90% on room air, she placed on 2 L NC with improvement to 92% and brought to the emergency department. On initial evaluation in the ED, she was afebrile, normocardic, MAP within normal range, saturating adequeatly on 2L NC. She was found to have anasarca reaching up to her thighs. 12 lead EKG showed atrial fibrilation. Initial labs are significant for pancytopenia, hyperkalemia, BUN 84, creatinine 2.14, BNP 207, troponins negative, and lipase 178. UA is consistent with a UTI. Chest Xray significant for hazy opacities throughout the right lung, and stable cardiomediastinal enlargement. The patient was started on IV lasix, hyperkalemia protocol, IV antibiotics, and of 1 PRBC and was admitted for further work up and management. The patient was evaluated by nephrology who initially recommended diuresis, albumin and low dose dopamine, and midodrine, however, due to progressively worsening kidney function, dialysis was recommended. On 08/18/2025 patient was found lethargic and disoriented, blood gas showed hypoxic and hypercapneic respiratory failure, she was started on BiPAP and transferred to the ICU. Mentation continued to deteriorate and required intubation for airway protection and respiratory insuffiency. Patient presented two large bloody bowel movements requiring emergent transfusion of 2 PRBCs and vasopressors. She was evaluated by gastroenterology who recommended use of PPI, ocreotide, and transfusions as needed with endoscopy when stable. On my initial evaluation in ICU, the patiet is intubated, sedated, and mechanically ventilated. She continues of 2 pressors, with drips recommended by GI. Prior medical history: HFrEF, Liver cirrhosis, Chronic Atrial Fibrillation, Anemia s/p multiple blood transfusions, and pulmonary hypertension Prior surgical history: 3 c-sections Allergies: Deny Social: Sons deny any previous drug, tobacco, or alcohol use. She recently moved to the area to live with her son, Eli. Shukla of systems: Unable to obtain due to patient being sedated and intubated 08/26/2025: Patient seen in the ICU. She is intubated, sedated, and mechanically ventilated. Vasopressin was discontinued, with SBP staying > 90. She is afebrile, HR is low borderline normal, and SBP remains over 90. Labs are stable, ammonia continues to downtrend. Per GI, they will perform bedside EGD. She will have one unit of platelets transfused. 08/25/2025: Patient seen in the ICU. She is intubated, sedated, mechanically ventilated, on vasopressin. Per nurse, attempts were made to titrate down the vasopressin overnight guided by keeping SBP > 90, however, SBP dropped down to the 70s, requiring vaso to be titrated back up to 0.03. This morning she was titrated down to 0.02. Dopamine was titrated down to 1. Sedation has also been decreased. No further bradycardic episodes reported. 1 unit of platelets was transfused by GI. 08/24/2025: Patient seen in the ICU. She is intubated, sedated, and mechanically ventilated on pressors. Per nurse, the patient was bradycardic overnight with heart rate in the 30s, for which dopamine was started. Levophed was able to be discontinued. Additionally they report another frankly bloody bowel movements with clots. CBC from last night showed interval increase in Hb and platelets, which remained stable per morning labs. White count continued to decrease. Vasopressin will be discontinued. We will continue to monitor. 08/23/2025: Patient seen in the ICU. She is intubated, sedated, and mechanically ventilated on pressors. Per nurse, overnight the patient presented sinus pauses however they could not be captured on EKG. Additionally refers one bloody bowel movement overnight described as dark burgundy. She is afebrile, bradycardic, normotensive on pressors. Labs show persistent leukopenia that continues to down trend, thrombocytopenia, and improved renal function post hemodialysis. We will transition the patient to TPN. Objective vital signs Vital Sign Date Time Temp Pulse Resp B/P (MAP) Pulse Ox O2 Delivery O2 Flow Rate FiO2 08/26/25 10:00 22 97 Mechanical Ventilator+ 30 30 08/26/25 08:15 66 116/44 (68) 08/26/25 04:00 98.5 98.5 Total Intake and Output 08/25/25 08/25/25 08/26/25 15:00 23:00 07:00 Intake Total 422.986 ml 1356.960 ml 732.865 ml Output Total 650 ml 500 ml Balance 422.986 ml 706.960 ml 232.865 ml medications Current Medications Medications Dose Ordered Sig/Erum Route Start Time Stop Time Status Last Admin Dose Admin Albuterol 2.5 mg Q6HPRN PRN NEB 08/15/25 21:45 08/25/25 02:20 2.5 MG Acetaminophen 650 mg Q6HP PRN PO 08/15/25 22:15 Morphine Sulfate 2 mg Q30M PRN IV 08/19/25 09:15 Sodium Chloride 10 ml QSHIFT@10,22 IV 08/19/25 22:00 08/26/25 09:12 10 ML Octreotide Acetate 500 mcg/ Sodium Chloride 100 ml @ 10 mls/hr Q10H IV 08/19/25 16:15 08/26/25 10:09 10 MLS/HR Propofol 100 ml @ 4.497 mls/ hr [id number] IV 08/19/25 16:45 08/26/25 05:40 8.994 MLS/HR Fentanyl Citrate 250 ml @ 2.5 mls/hr Q24H IV 08/19/25 16:45 08/25/25 22:31 12.5 MLS/HR Norepinephrine Bitartrate 32 mg/ Sodium Chloride 250 ml @ 0.938 mls/ hr Q24H IV 08/19/25 19:45 08/23/25 09:50 1.875 MLS/HR Pantoprazole Sodium 40 mg BID IV 08/22/25 10:00 08/26/25 09:12 40 MG Diagnostic Test (Pha) 1 strip Q6HR 08/22/25 18:00 08/26/25 06:15 1 STRIP Insulin Human Regular FOLLOW SLIDING SCALE Q6HR SC 08/22/25 18:00 08/25/25 18:25 2 UNITS Dextrose 50 ml UD IV 08/22/25 16:00 08/25/25 06:09 50 ML Albumin Human 100 ml @ 100 mls/hr PRN PRN IV 08/22/25 17:00 Amino Acids 0 ml @ 0 mls/hr PER PHARMACY IV 08/23/25 16:30 Meropenem 50 ml @ 17 mls/hr Q8HR IV 08/23/25 22:00 08/26/25 05:40 17 MLS/HR Dopamine HCl/ Dextrose 250 ml @ 10.995 mls/ hr [id number] IV 08/23/25 22:00 08/25/25 22:32 10.995 MLS/HR Vasopressin 20 units/Sodium Chloride 100 ml @ 9 mls/hr Q11H7M IV 08/24/25 18:15 08/25/25 04:49 6 MLS/HR Potassium Chloride 10 meq/ Potassium Phosphate 10 meq/ Calcium Gluconate 4.65 meq/ Magnesium Sulfate 8 meq/ Multivitamins 10 ml/Amino Acids/ Dextrose/Purified Water 1,029.2727 ml @ 43 mls/hr [id number] IV 08/25/25 22:00 08/26/25 21:59 08/25/25 21:32 43 MLS/HR Midodrine 10 mg TID@0600,1200,1800 NG 08/25/25 18:00 08/26/25 05:41 10 MG Examination General: The patient intubated, sedated, and mechanically ventilated, on pressors. HEENT: Normocephalic, atraumatic, equal sluggish pupils, no EOM, pale conjunctiva, ET tube in place, OG-tube in place Respiratory/pulmonary: Bilateral chest expansion, clear lungs bilaterally, no associated crackles or wheezes, presence of Jose M catheter in right pectoral region Cardiovascular: Irregular rhythm Abdomen: Obese, Abdomen nondistended, normal bowel sounds, soft, there is no pain to palpation in any of the abdominal quadrants, no palpable masses. Extremities: No deformities, bilateral pitting edema worse in the calves 3+, pulses are present Skin: Bruising and skin tears noted on left arm, skin tears noted on the left calf Neurological: Unable to evaluate due to sedation laboratory and microbiology Laboratory Tests 08/26/25 03:00 Test 08/26/25 03:00 Range/Units Serum Glucose 158 H 74-106 mg/dL Microbiology Date/Time Source Procedure Growth Status 08/23/25 16:30 Urine - Abreu Port Urine Culture - Final Complete 08/18/25 10:55 Nose MRSA Screen - Final Complete Problem List/Assessment/Plan Problem List/Assessment/Plan Neurology # Acute metabolic encephalopathy likely due to hyperammonemia # Sedated - Propofol 10 mcg/kg/hr - Fentanyl 150 mcg/hr Cardiovascular # Acute on chronic HFpEF heart failure -Likely precipitated by fluid overload and sepsis -Echocardiogram: LVEF 50%. mild mitral regurgitation. mild tricuspid regurgitation. mild to moderate pulmonic regurgitation -Furosemide 40 IV daily, discontinued -Bumex drip, discontinued -Jardiance, Furosemide, and carvedilol held at this time - Furosemide 20 mg IV once #Chronic Atrial Fibrillation - Amiodarone - held due to bradycardia # Severe Pulmonary Hypertension - Sildenfil - held - Ambrisentan 5 mg - held # Bradycardia - Midodrine 10 mg TID - Dopamine 2 mcg Respiratory # Acute hypoxic respiratory failure # Acute hypercapneic respiratory failure # Ventilator -Intubated (08/19/2025) -On [facility] vent : VCAC Mode RR 22 TV 450ml, PEEP Of 8 and FiO2 of 30% # Pulmonary Edema with bilateral pleural effusioins - Chest xray: Stable appearing pulmonary edema and small bilateral pleural effusions. # Pneumonia ruled out - Azithromycin discontinued GI # Acute hypovolemic shock likely due to Lower GI Bleed - 8 PRBC transfusions, 4 FFPs, 5 Platelet transfusions - Per GI: Patient will undergo EGD today - Sandostatin drip - Protonix 40 mg IV BID - Vasopressin discontinued - Quadlevo discontinued # Liver cirrhosis likely due to fatty liver disease # Cholelithaisis - Abdominal US: The gallbladder wall measures 0.3 cm and is normal in size. Gallstones are noted. # Peptic ulcer prophylaxis -Pantoprazole 40 mg IV BID # Abreu catheter present draining clear urine # Complicated UTI - Urine culture: E coli ESBL - Meropenem 1 g IV q8 hrs - UA shows signs of improved infection - UC: No growth after 48 hours Nephrology # RUDDY on CKD likely due to VMN/hemodynamic requiring dialysis - Per nephrology, renal function is improving. Dialysis is being held at this time. # Hyperkalemia, resolved - Monitor potassium levels # Hypernatremia - Monitor Infectious disease # Possible Septic Shock due to UTI - Meropenem 1 g IV BID - Urine Culture: E. Coli ESBL - Follow up UA shows improvement follow up UC shows no growth at 48 hours - Vasopressin discontinued - Quadlevo discontinued Hem/onc # Acute hypovolemic shock likely due to Lower GI Bleed - 8 PRBC transfusions, 4 FFPs, 5 Platelet transfusions - Per GI: Patient will go for endoscopy once more stable - Sandostatin drip - Protonix 40 mg IV BID # Pancytopenia - Possibly associated to liver disease DVT prophylaxis: SCDs Nutrition: TPN Lines -R PICC line 08/19 -Abreu catheter 08/19 -ET tube: 08/19 -Jose M catheter 08/19 Drips during mech ventilation Propofol 10 mcg/kg/min Fentanyl 150 mcg/hr Vasopressin discontinued Dopamine 2 Quadlevo discontinued Sandostatin 50 mcg/h Patient is currently on vasopressin will be discontinued. SBP to be > 90. Dopamine is on for support of heart rate. Patient is in critical condition, all findings and implications have been relayed to her sons at bedside. Questions and concerns were thoroughly addressed, prognosis is poor. Critical care time 81 minutes excluding procedure. Code status discussed greater than 20 minutes: Full CODE STATUS. Family at bedside explained about the condition of the patient Plan discussed with Dr. Puga Plan discussed with: Son, Other (Nurse (Mikki)) My Orders My Orders Orders - DONAL KILLIAN Procedure Category Date Status Time Amino Acid PHA 08/25/25 In Process Infusion... 22:00 Tpn Per Pharmacy GILDARDO 08/25/25 In Process 22:00 Midodrine Tablet PHA 08/25/25 In Process (Proamatine Tablet) 18:00 Chest Xray 1 View XY 08/26/25 Resulted 04:00 Abg W/ Co-Ox RT 08/26/25 Logged 04:00 Pheresis Platelets BBK 08/26/25 Logged 09:43 CC Plasma Assessment Blood Product Administration S: [id number] Visit Coding STANDARD RES Billing Provider: SILVIA PUGA MD Date of Service if different f: Aug 26, 2025 Common Visit Codes: 55826-[id number] CARE 30-74 MIN, [id number] CARE-EACH +30MIN DONAL KILLIAN RESIDENT Aug 26, 2025 11:33
[2025-08-26] MEDS ORDERED: EPINEPHrine HCL 1 MG/10 ML SYRG ONE (12:13)
[2025-08-26] MEDS ORDERED: SODIUM CHLORIDE LOCK 10 ML ONE (12:13)
[2025-08-26] MEDS ORDERED: MIDAZOLAM HCL 5 MG/ML-1ML VIAL ONE (12:14)
[2025-08-26] MEDS: MIDAZOLAM HCL 5 MG/ML-1ML VIAL IV ONE (12:52)
--- NOTE | 2025-08-26 14:34 | DVHOP2 ---
Operative Report DATE OF OPERATION: 08/26/25 PROCEDURE: Upper Endoscopy with biopsy PREOPERATIVE INDICATION: The patient is a 65 -year-old female undergoing endoscopy for GI bleed POSTOPERATIVE DIAGNOSES: 1. 1-2 cm sliding-type hiatal hernia with no significant erosive esophagitis 2. Mild gastritis involving the antrum and body of the stomach with some linear gastric erosions PROCEDURE PERFORMED BY: Stephanie Elena GI NURSE: Abbey SCOPE: Olympus videoendoscope. ASA CLASS: 3. PREOPERATIVE MEDICATIONS: Versed 2 mg, patient intubated on a fentanyl drip I administered moderate sedation throughout this _10_ minutes procedure. An independent trained observer pushed medications at my direction, and monitored the patient's level of consciousness and physiological status throughout. PROCEDURE IN DETAIL: After obtaining an informed consent, the patient was placed on left lateral decubitus position. The patient was then sedated with the above medications. A PDA bite block was placed between her teeth. The endoscope was then passed through the oropharynx, into the esophagus, and through the stomach and pylorus up to the second and third part of the duodenum. The endoscope was then withdrawn. The 2nd and 3rd part of the duodenum and the duodenal bulb were normal. There was good bile drainage The pre-pyloric area and antrum showed mild gastritis. There were linear gastric erosions in the body of stomach On retroflexion the fundus and cardia were normal. There was no fresh or old blood in the upper GI tract. Gastric biopsies were obtained The endoscope was then withdrawn into distal esophagus where the patient had a 2 cm sliding-type hiatal hernia with no significant erosive esophagitis Remaining distal and proximal esophagus and oropharynx were unremarkable The patient tolerated the procedure well without difficulty. COMPLICATIONS : None SPECIMENS: Gastric biopsies DISPOSITION: Stable Continue to monitor in ICU PLAN: 1. Await for biopsy result 2. Will place pt on Protonix 40 mg bid IV 3. Discontinue IV Sandostatin drip 4. Continue to monitor labs and transfuse if hemoglobin drops below seven 5. Elective colonoscopy once medically stabilized STEPHANIE ELENA MD Aug 26, 2025 14:34
--- NOTE | 2025-08-26 18:21 | DVHPN2 ---
Progress Note - Dictate Date Seen: Aug 26, 2025 Medical Necessity Reason Pt with a Central, PICC or Fol: Yes The following are medically ne: PICC Line, Abreu Catheter Subjective intubated vital signs Vital Sign Date Time Temp Pulse Resp B/P (MAP) Pulse Ox O2 Delivery O2 Flow Rate FiO2 08/26/25 17:55 100/31 08/26/25 16:03 57 22 96 30 08/26/25 16:00 Mechanical Ventilator+ 08/26/25 15:45 98.3 98.3 Total Intake and Output 08/25/25 08/25/25 08/26/25 14:59 22:59 06:59 Intake Total 430.983 ml 1291.463 ml 749.960 ml Output Total 650 ml 500 ml Balance 430.983 ml 641.463 ml 249.960 ml medications Current Medications Medications Dose Ordered Sig/Erum Route Start Time Stop Time Status Last Admin Dose Admin Albuterol 2.5 mg Q6HPRN PRN NEB 08/15/25 21:45 08/25/25 02:20 2.5 MG Acetaminophen 650 mg Q6HP PRN PO 08/15/25 22:15 Morphine Sulfate 2 mg Q30M PRN IV 08/19/25 09:15 Sodium Chloride 10 ml QSHIFT@10,22 IV 08/19/25 22:00 08/26/25 09:12 10 ML Fentanyl Citrate 250 ml @ 2.5 mls/hr Q24H IV 08/19/25 16:45 08/26/25 14:05 15 MLS/HR Norepinephrine Bitartrate 32 mg/ Sodium Chloride 250 ml @ 0.938 mls/ hr Q24H IV 08/19/25 19:45 08/23/25 09:50 1.875 MLS/HR Pantoprazole Sodium 40 mg BID IV 08/22/25 10:00 08/26/25 09:12 40 MG Albumin Human 100 ml @ 100 mls/hr PRN PRN IV 08/22/25 17:00 Meropenem 50 ml @ 17 mls/hr Q8HR IV 08/23/25 22:00 08/26/25 14:32 17 MLS/HR Dopamine HCl/ Dextrose 250 ml @ 10.995 mls/ hr [id number] IV 08/23/25 22:00 08/26/25 17:55 10.995 MLS/HR Vasopressin 20 units/Sodium Chloride 100 ml @ 9 mls/hr Q11H7M IV 08/24/25 18:15 08/25/25 04:49 6 MLS/HR Potassium Chloride 10 meq/ Potassium Phosphate 10 meq/ Calcium Gluconate 4.65 meq/ Magnesium Sulfate 8 meq/ Multivitamins 10 ml/Amino Acids/ Dextrose/Purified Water 1,029.2727 ml @ 43 mls/hr [id number] IV 08/25/25 22:00 08/26/25 21:59 08/25/25 21:32 43 MLS/HR Midodrine 10 mg TID@0600,1200,1800 NG 08/25/25 18:00 08/26/25 17:55 10 MG Sodium Chloride 10 meq/Potassium Chloride 10 meq/ Calcium Gluconate 6.3 meq/Magnesium Sulfate 10 meq/ Multivitamins 10 ml/Potassium Phosphate 20 meq/ Amino Acids/ Dextrose/Purified Water 1,038.0938 ml @ 43 mls/hr Q24H9M IV 08/26/25 22:00 08/27/25 21:59 Cancel Enteral Nutritional Formula 1,000 ml 30ML/HR GT 08/26/25 15:00 objective Gen: nad, intubated heent: nc/at, mmm lungs: cta anteriorly cvs: no rub abd: soft, bowel sounds audible ext: + edema laboratory and microbiology Laboratory Tests 08/26/25 03:00 Test 08/26/25 03:00 Range/Units Serum Glucose 158 H 74-106 mg/dL Assessment/Plan Problem List/Assessment/Plan Acute kidney injury superimposed Chronic Kidney Disease secondary hemodynamic mediated/ possible ischemic ATN FeNa > 2% Acute respiratory failure, patient intubated on ventilator Congestive heart failure exacerbation Hepatic encephalopathy GI bleeding Pancytopenia Liver cirrhosis Acute pancreatitis high BUN/creatinine ratio likely due to GI bleeding Secondary hyperparathyroidism Hyperphosphatemia Persistent hyperkalemia resistant to medical treatment, resolved Recommendations - removal of dialysis catheter - RUDDY resolving, no new recommendations from Nephrology perspective. I will sign off her case. Please reconsult as needed. Thank you. Plan discussed with: Other CC Plasma Assessment Blood Product Administration S: [id number] PELON MINOR MD Aug 26, 2025 18:21
[2025-08-26] MEDS: PROPOFOL 100 ML IV SCH (21:25)
[2025-08-26] MEDS: Nepro With Carb Steady 1 Liter Bottle GT SCH (21:26)
--- NOTE | 2025-08-26 21:31 | DVH ---
CHEST RADIOGRAPH INDICATION: NG TUBE PLACEMENT TECHNIQUE: Single frontal view of the chest was obtained COMPARISON: XY CHEST XRAY 1 VIEW on DOS: 08/26/25, XY CHEST XRAY 1 VIEW on DOS: 08/25/25, XY CHEST XRAY 1 VIEW on DOS: 08/24/25 FINDINGS: Lines and Tubes: Endotracheal tube is noted to be in place at 5:28 a.m. On 08/26/2025 is not visualized on the current study. There is no enteric tube noted in the thoracic esophagus. Consider repositioning and repeat chest x-ray Lungs: No focal consolidation. Pleura: No effusion. No pneumothorax. Cardiomediastinal contours: Unremarkable Bones: No acute osseous abnormality. IMPRESSION: 1. Enteric tube not visualized. 2. Consider repositioning and repeat chest x-ray. 3. Study has been windowed at various levels unsuccessful visualization of enteric tube.
[2025-08-26] MEDS ORDERED: TPN PER PHARMACY IV NR (22:00)
[2025-08-27] VITALS (85 sets, daily range): BP systolic 73–134; BP diastolic 27–69; PULSE 57–102; RESP 13–30; TEMP 98.2–98.9; O2SAT 86–100
--- NOTE | 2025-08-27 | DVHPN2 ---
Subjective DOS: 08/26/2025 Patient seen and examined at bedside. Sedated, intubated on mechanical ventilator. Overnight events reviewed. Reviewed: H&P Changes from previous H/P or p: No Changes Objective Vitals Vital Signs Date Time Temp Pulse Resp B/P (MAP) Pulse Ox O2 Delivery O2 Flow Rate FiO2 08/26/25 23:00 69 21 116/45 (68) 100 08/26/25 22:00 30 08/26/25 22:00 Mechanical Ventilator+ 08/26/25 20:00 98.6 98.6 Intake/Output Intake and Output 08/27/25 07:00 Intake Total 1560.896 ml Output Total 850 ml Balance 710.896 ml IV Total 864.896 ml Blood Product 696 ml Output Urine Total 750 ml Gastric Drainage Total 100 ml Exam Gen.: Patient lying in bed in medical ICU. Sedated, intubated on mechanical ventilator. Head: Normocephalic, atraumatic. Eyes: PERRLA. Ears: Normal external anatomy. Throat: Endotracheal tube and orogastric tube in place. Neck: Supple, trachea midline. Chest: Transmitted breath sounds bilaterally. Decreased air entry bilaterally. No wheezing. Bibasilar crackles. Cardiovascular: Positive S1, positive S2. Regular rate and rhythm. Abdomen: Positive bowel sounds in all 4 quadrants. Soft, nontender, nondistended. : Abreu in place. Normal external genitalia. Rectal: Deferred. Skin: Warm, dry. Intact. Extremities: 2+ radial pulses bilaterally. No lower extremity edema. Neuro: Sedated. General Appearance: Other (intubated and sedated) HEENT: Atraumatic Lungs: Other (On mechanical ventilator) Cardiovascular: Regular rate, Normal S1, Normal S2 Abdomen: Normal bowel sounds Medications Current Medications Medications Dose Ordered Sig/Erum Route Start Time Stop Time Status Last Admin Dose Admin Albuterol 2.5 mg Q6HPRN PRN NEB 08/15/25 21:45 08/25/25 02:20 2.5 MG Acetaminophen 650 mg Q6HP PRN PO 08/15/25 22:15 Morphine Sulfate 2 mg Q30M PRN IV 08/19/25 09:15 Sodium Chloride 10 ml QSHIFT@10,22 IV 08/19/25 22:00 08/26/25 21:26 10 ML Fentanyl Citrate 250 ml @ 2.5 mls/hr Q24H IV 08/19/25 16:45 08/26/25 14:05 15 MLS/HR Norepinephrine Bitartrate 32 mg/ Sodium Chloride 250 ml @ 0.938 mls/ hr Q24H IV 08/19/25 19:45 08/23/25 09:50 1.875 MLS/HR Pantoprazole Sodium 40 mg BID IV 08/22/25 10:00 08/26/25 21:25 40 MG Albumin Human 100 ml @ 100 mls/hr PRN PRN IV 08/22/25 17:00 Meropenem 50 ml @ 17 mls/hr Q8HR IV 08/23/25 22:00 08/26/25 21:25 17 MLS/HR Dopamine HCl/ Dextrose 250 ml @ 10.995 mls/ hr [id number] IV 08/23/25 22:00 08/26/25 17:55 10.995 MLS/HR Vasopressin 20 units/Sodium Chloride 100 ml @ 9 mls/hr Q11H7M IV 08/24/25 18:15 08/25/25 04:49 6 MLS/HR Midodrine 10 mg TID@0600,1200,1800 NG 08/25/25 18:00 08/26/25 17:55 10 MG Sodium Chloride 10 meq/Potassium Chloride 10 meq/ Calcium Gluconate 6.3 meq/Magnesium Sulfate 10 meq/ Multivitamins 10 ml/Potassium Phosphate 20 meq/ Amino Acids/ Dextrose/Purified Water 1,038.0938 ml @ 43 mls/hr Q24H9M IV 08/26/25 22:00 08/27/25 21:59 Cancel Enteral Nutritional Formula 1,000 ml 30ML/HR GT 08/26/25 15:00 08/26/25 21:26 1,000 ML Propofol 100 ml @ 4.404 mls/ hr [id number] IV 08/26/25 21:15 08/26/25 21:25 8.808 MLS/HR Laboratory Results Laboratory Tests 08/26/25 03:00 Chemistry Test 08/26/25 03:00 Albumin 3.0 g/dL (3.2-4.8) L Calcium Level 7.7 mg/dL (8.7-10.4) L Magnesium Level 1.8 mg/dL (1.6-2.6) Phosphorus Level 2.2 mg/dL (2.4-5.1) L Total Protein 5.3 g/dL (5.7-8.2) L LFT Test 08/26/25 03:00 Alanine Aminotransferase (ALT) < 9 U/L (7-40) Alkaline Phosphatase 55 U/L (46-116) Aspartate Amino Transferase (AST) 26 U/L (13-40) Total Bilirubin 2.0 mg/dL (0.2-1.0) H Urinalysis Test 08/16/25 04:10 08/24/25 15:20 Urine WBC Clumps Present /hpf (None Seen) Urine Creatinine 50.59 mg/dL (30.0-125.0) Urine Protein/Creatinine Ratio 0.61 Urine Sodium 46 mmol/L (40-220) Urine Total Protein 30.8 mg/dL (1-14) H Urine Color Yellow (Yellow) Urine Clarity Turbid (Clear) H Urine pH 5.5 (5.0-9.0) Urine Specific Alpha 1.017 (1.001-1.035) Urine Protein Trace (Negative) H Urine Ketones Negative (Negative) Urine Blood Negative /uL (Negative) Urine Nitrite Negative (Negative) Urine Bilirubin Negative (Negative) Urine Urobilinogen 2 mg/dL (Negative) H Urine Leukocyte Esterase 2+ /uL (Negative) Urine RBC <1 /hpf (0 - 4) Urine Microscopic WBC 25 /HPF (0-5) H Urine Squamous Epithelial Cells Mod /hpf (<5) Urine Bacteria None seen /hpf (None Seen) Urine Hyaline Casts Few /lpf (0 - 2) Urine Mucus Few (None Seen) Urine Glucose Normal mg/dL (Normal) Blood Gas Results Test 08/26/25 08:24 Arterial Blood pH 7.425 (7.350-7.450) FiO2 % 30.0 Microbiology Microbiology Date/Time Source Procedure Growth Status 08/23/25 16:30 Urine - Abreu Port Urine Culture - Final Complete 08/18/25 10:55 Nose MRSA Screen - Final Complete Assessment/Plan Assessment/Plan Impression: Acute on chronic hypoxic respiratory failure On mechanical ventilator Pulmonary hypertension Congestive heart failure Morbid obesity Acute on chronic renal failure Pancytopenia Events: Patient was emergently intubated and placed on mechanical ventilator on 12/5/25 She was noted to have massive bloody bowel movement; had rapid transfusion of 2 units PRBC Right subclavian vein Jose M catheter placed. See separate procedure note for details. Continue vent support On AC mode; RR 22, VT 450, PEEP 8, FiO2 30% Taper FiO2 as tolerated No further bloody bowel movements. Monitor hemoglobin - currently stable. Plan for platelet transfusion, Protonix BID Sandostatin drip GI recs appreciated. Plan for EGD per GI. Hemodialysis per Nephrology Nephrology recs appreciated Off pressors since yesterday, hemodynamically stable. On Dopamine 2 mcg/min Continue bronchodilators. Continue antibiotics Monitor blood pressure -midodrine for BP support Labs and imaging reviewed. Plan: S/p intubation on mechanical ventilator. On AC mode; RR 22, VT 450, PEEP 8, FiO2 30% Titrate FIO2 to keep O2 saturation above 90%. VAP bundle. Daily ABG and CXR while intubated Sedate for ventilator synchrony Pressors for hemodynamic support Titrate to keep mean arterial pressure greater than 65 mmHg Continue bronchodilators. Continue antibiotics Follow up Nephrology recs HD per Nephrology Diurese to euvolemia Monitor renal function. Monitor electrolytes. Supplement as necessary. Hyperkalemia resolved Monitor ins and outs. DVT prophylaxis. Prognosis: Poor given patient's multiple co-morbidities. Condition: Critical Rest of plan per hospitalist and other consultants. A total of 35 minutes of critical care time was spent reviewing the patient record, examining the patient, making a diagnostic and therapeutic plan, discussing this plan with the medical personnel, following up on diagnostic studies and following the patient for clinical stability excluding any and all procedures. At least 50% of this time was spent in direct, [id number] contact. Thank you, Dr. Longo, for allowing me to participate in this patient's care. Further recommendations will depend on the patient's clinical course. Please do not hesitate to contact me if you have any questions or concerns. This medical document was created using an electronic medical record system with [employer] system. Although these documentations are being carefully reviewed, there may still be some phonetic and typographical changes. The errors are purely typographical, due to imperfection on the software program, and do not reflect any compromise in the patient's medical care. Plan discussed with: Other (RN) My Orders Orders - SILVIA RIVAS MD Procedure Category Date Status Time Propofol (Diprivan) PHA 08/26/25 In Process 21:15 Rass Sedation Scale GILDARDO 08/26/25 In Process 21:12 Visit Coding Pulmonary Billing Provider: SILVIA RIVAS MD Date of Service if different f: Aug 26, 2025 Common Visit Codes: [id number] INP/OBS CARE(HIGH), [id number] CARE 30-74 MIN SILVIA RIVAS MD Aug 27, 2025 00:00
[2025-08-27 03:59] LABS: Hemoglobin 8.7 g/dL (12.2-16.2); Mean Corpuscular Hemoglobin 27.8 pg (28.0-32.0)
[2025-08-27 04:02] LABS: Hematocrit 27.0 % (36.0-46.0); Mean Corpuscular Volume 86.3 fL (80.0-100.0)
[2025-08-27 04:50] LABS: Alanine Aminotransferase 11 U/L (7-40); Alkaline Phosphatase 65 U/L (46-116); Anion Gap 8 (5-15); BUN/Creatinine Ratio 20.8 (10.0-20.0); Carbon Dioxide 31 mmol/L (20-31); Chloride 103 mmol/L (98-107); Glucose 102 mg/dL (74-106); Potassium 4.2 mmol/L (3.5-5.1); Sodium 142 mmol/L (136-145); Total Cells Counted 100.0 (100); Total Protein 5.9 g/dL (5.7-8.2)
[2025-08-27 04:51] LABS: Albumin 3.1 g/dL (3.2-4.8); Bilirubin, Total 2.4 mg/dL (0.2-1.0); Blood Urea Nitrogen 27 mg/dL (9-23); Calcium 8.1 mg/dL (8.7-10.4)
--- NOTE | 2025-08-27 06:05 | DVH ---
CHEST RADIOGRAPH Indication: intubated Technique: Single frontal view of the chest was obtained COMPARISON: XY CHEST PORTABLE on DOS: 08/26/25, XY CHEST XRAY 1 VIEW on DOS: 08/26/25, XY CHEST XRAY 1 VIEW on DOS: 08/25/25, XY CHEST XRAY 1 VIEW on DOS: 08/24/25, XY CHEST XRAY 1 VIEW on DOS: 08/23/25 FINDINGS: Lines and Tubes: Endotracheal tube and enteric catheter in satisfactory position. Left PICC in satisfactory position. Right central venous catheter in satisfactory position. Lungs: Increased pulmonary vascular congestion. Pleura: No effusion.No pneumothorax. Cardiomediastinal contours: Unremarkable Bones: Unremarkable IMPRESSION: Increased pulmonary vascular congestion.
[2025-08-27 08:14] LABS: Base Excess 2.2 mmol/L (-2.0-3.0)
[2025-08-27] MEDS: FUROSEMIDE 20 MG/2 ML VIAL IV ONE (10:52)
--- NOTE | 2025-08-27 10:53 | DVHPN2 ---
Progress Note Date Seen: Aug 27, 2025 Resident Creating Document: RANDY PANDA RESIDENT Medical Necessity Reason Pt with a Central, PICC or Fol: Yes The following are medically ne: PICC Line, Abreu Catheter Subjective Review of Systems 65 y/o F pt with PMH of cirrhosis admitted with SOB and edema, acute resp failure, on vent. GI team consulted last evening with hematochezia. I spoke with RN in detail. Pt was being treated for acute resp failure, was on BiPAP, noted to have rectal bleed yesterday PM, I was contacted. Pt was intubated and on 3 pressors. No hematemesis or melena noted. Family unsure of previous GI procedures. Wishes to be full code. Chart reviewed 08/22 - patient seen and examined, intubated, on 2 pressors. Abdomen hypoactive. Soft. 08/23-patient seen and examined. On Levophed and vaso. Abdomen normoactive. Overnight 1 bowel movement which was burgundy in color. 08/24 - patient seen and examined. Abdomen normoactive. NPO, NG tube in place. Overnight patient had moderate size bloody stool. 08/25-abdomen normoactive. On vasopressin. NG to LIS, draining around 50 cc of blackish secretions. 08/27-patient seen and examined, abdomen hypoactive, on tube feedings. No bowel movement since 08/24. Started lactulose. Objective vital signs Vital Sign Date Time Temp Pulse Resp B/P (MAP) Pulse Ox O2 Delivery O2 Flow Rate FiO2 08/27/25 10:22 85 23 111/49 (69) 99 30 08/27/25 10:00 Mechanical Ventilator+ 08/27/25 03:15 98.3 98.3 Total Intake and Output 08/26/25 08/26/25 08/27/25 15:00 23:00 07:00 Intake Total 576.7 ml 984.196 ml 405.424 ml Output Total 850 ml 350 ml Balance 576.7 ml 134.196 ml 55.424 ml medications Current Medications Medications Dose Ordered Sig/Erum Route Start Time Stop Time Status Last Admin Dose Admin Albuterol 2.5 mg Q6HPRN PRN NEB 08/15/25 21:45 08/25/25 02:20 2.5 MG Acetaminophen 650 mg Q6HP PRN PO 08/15/25 22:15 Morphine Sulfate 2 mg Q30M PRN IV 08/19/25 09:15 Sodium Chloride 10 ml QSHIFT@10,22 IV 08/19/25 22:00 08/27/25 09:48 10 ML Fentanyl Citrate 250 ml @ 2.5 mls/hr Q24H IV 08/19/25 16:45 08/27/25 03:02 15 MLS/HR Norepinephrine Bitartrate 32 mg/ Sodium Chloride 250 ml @ 0.938 mls/ hr Q24H IV 08/19/25 19:45 08/23/25 09:50 1.875 MLS/HR Pantoprazole Sodium 40 mg BID IV 08/22/25 10:00 08/27/25 09:47 40 MG Albumin Human 100 ml @ 100 mls/hr PRN PRN IV 08/22/25 17:00 Meropenem 50 ml @ 17 mls/hr Q8HR IV 08/23/25 22:00 08/27/25 05:38 17 MLS/HR Dopamine HCl/ Dextrose 250 ml @ 10.995 mls/ hr [id number] IV 08/23/25 22:00 08/27/25 02:57 10.995 MLS/HR Vasopressin 20 units/Sodium Chloride 100 ml @ 9 mls/hr Q11H7M IV 08/24/25 18:15 08/25/25 04:49 6 MLS/HR Midodrine 10 mg TID@0600,1200,1800 NG 08/25/25 18:00 08/27/25 05:37 10 MG Sodium Chloride 10 meq/Potassium Chloride 10 meq/ Calcium Gluconate 6.3 meq/Magnesium Sulfate 10 meq/ Multivitamins 10 ml/Potassium Phosphate 20 meq/ Amino Acids/ Dextrose/Purified Water 1,038.0938 ml @ 43 mls/hr Q24H9M IV 08/26/25 22:00 08/27/25 21:59 Cancel Enteral Nutritional Formula 1,000 ml 30ML/HR GT 08/26/25 15:00 08/26/25 21:26 1,000 ML Propofol 100 ml @ 4.404 mls/ hr [id number] IV 08/26/25 21:15 08/27/25 02:57 8.808 MLS/HR Lactulose 30 ml DAILY PO 08/28/25 10:00 Examination Obese female lying in the bed, intubated and mechanically ventilated General: Obese, afebrile, palor, mucosae are moist Cardiovascular: Regular S1 and S2. No murmurs, gallops or rubs. No JVD elevation. Bilateral pedal edema. Respiratory: Decreased breath sounds heard on auscultation, intubated Abdomen: Soft, nontender, nondistended, hypoactive bowel sounds, no rebound tenderness, no organomegaly, no masses Genitourinary: Abreu catheter seen Neurological: Pupils are isocoric and reactive. Intact gag reflex laboratory and microbiology Laboratory Tests 08/27/25 03:00 Test 08/27/25 03:00 Range/Units Serum Glucose 102 74-106 mg/dL Microbiology Date/Time Source Procedure Growth Status 08/23/25 16:30 Urine - Abreu Port Urine Culture - Final Complete 08/18/25 10:55 Nose MRSA Screen - Final Complete Labs and/or images reviewed: Labs reviewed by me, Image(s) reviewed by me Problem List/Assessment/Plan Problem List/Assessment/Plan Acute blood loss anemia status post 8 RBC transfusions Anemia likely normocytic versus iron-deficiency Ruled out esophageal varices Likely lower GI bleeding Cirrhosis-unspecified Hepatic encephalopathy Hyperammonemia Acute hypoxic respiratory failure status intubation RUDDY superimposed on CKD requiring hemodialysis E coli ESBL UTI Pancytopenia ? Cirrhosis related on isolation Hyperkalemia POSTOPERATIVE DIAGNOSES: 1. 1-2 cm sliding-type hiatal hernia with no significant erosive esophagitis 2. Mild gastritis involving the antrum and body of the stomach with some linear gastric erosions Plan: Recommendation: Dr. Elena: Patient is experiencing 1 bloody bowel movement every day. Patient is off pressors. Upper EGD 08/26 ruled out esophageal varices at this time. Discontinued octreotide Status post 2 platelets transfusion Continue tube feedings as tolerated, lactulose 30 mL daily Elective colonoscopy once stabilized Stool occult positive, continue Protonix 40 mg IV b.i.d, discontinued Sandostatin Monitor H&H, keep hemoglobin greater than 7 Monitor ammonia in a.m. Bilirubin trending down, monitor CMP. LFTs unremarkable Hepatitis panel negative, AFP unremarkable, LARRY negative Patient had upper and lower endoscopy at [facility] 1 year back showed no active bleeding. Diet: Tube feedings Plan discussed with the patient's son at bedside in which all questions have been answered Case discussed with Dr. Ulices Plan discussed with: Other (Nurse) My Orders My Orders Orders - RANDY PANDA Procedure Category Date Status Time Obtain Consent For: ORDERS 08/26/25 Transmitted 11:13 Obtain Consent For GILDARDO 08/26/25 In Process Anesthesia 11:13 Lactulose Oral PHA 08/28/25 In Process 10:00 CC Plasma Assessment Blood Product Administration S: [id number] RANDY PANDA RESIDENT Aug 27, 2025 10:53
--- NOTE | 2025-08-27 16:18 | DVHPNRES ---
Progress Note Date Seen: Aug 27, 2025 Resident Creating Document: DONAL KILLIAN RESIDENT Medical Necessity Reason Pt with a Central, PICC or Fol: Yes The following are medically ne: PICC Line, Abreu Catheter Subjective Review of Systems Ms. Worthington is a 65 year old female with prior medical history of HFrEF, liver cirrhosis, Chronic Atrial fibrillation, Anemia with multiple blood transfusions in the past, and pulmonary hypertension, who presented to [facility] via EMS due shortness of breath. At the time of evaluation the patient is sedated and intubated, history was taken by from her sons Shashank and Dalia at bedside and from previous medical record. Per her sons, the patient has had progressively worsening bilateral leg edema for the last month associated woth worsening shortness of breath for two weeks. They state that she is compliant with her medications, however, every few months they have to take their mom to the hospital for similar symptoms, with most recent hospitalization at this institution in late May 2025. She was seen by her home health nurse on Friday (08/15/2025) night, who told the family to call EMS. Per record, on scene she was found to have a saturation of 90% on room air, she placed on 2 L NC with improvement to 92% and brought to the emergency department. On initial evaluation in the ED, she was afebrile, normocardic, MAP within normal range, saturating adequeatly on 2L NC. She was found to have anasarca reaching up to her thighs. 12 lead EKG showed atrial fibrilation. Initial labs are significant for pancytopenia, hyperkalemia, BUN 84, creatinine 2.14, BNP 207, troponins negative, and lipase 178. UA is consistent with a UTI. Chest Xray significant for hazy opacities throughout the right lung, and stable cardiomediastinal enlargement. The patient was started on IV lasix, hyperkalemia protocol, IV antibiotics, and of 1 PRBC and was admitted for further work up and management. The patient was evaluated by nephrology who initially recommended diuresis, albumin and low dose dopamine, and midodrine, however, due to progressively worsening kidney function, dialysis was recommended. On 08/18/2025 patient was found lethargic and disoriented, blood gas showed hypoxic and hypercapneic respiratory failure, she was started on BiPAP and transferred to the ICU. Mentation continued to deteriorate and required intubation for airway protection and respiratory insuffiency. Patient presented two large bloody bowel movements requiring emergent transfusion of 2 PRBCs and vasopressors. She was evaluated by gastroenterology who recommended use of PPI, ocreotide, and transfusions as needed with endoscopy when stable. On my initial evaluation in ICU, the patiet is intubated, sedated, and mechanically ventilated. She continues of 2 pressors, with drips recommended by GI. Prior medical history: HFrEF, Liver cirrhosis, Chronic Atrial Fibrillation, Anemia s/p multiple blood transfusions, and pulmonary hypertension Prior surgical history: 3 c-sections Allergies: Deny Social: Sons deny any previous drug, tobacco, or alcohol use. She recently moved to the area to live with her son, Eli. Gilbertw of systems: Unable to obtain due to patient being sedated and intubated 08/27/2025: Patient seen in the ICU. She is intubated, sedated, mechanically ventilated. Vasopressin has been discontinued. Dopamine is currently at 2 mcg, attempts to decrease has resulted in decreases in SBP below 90 mmHg. Labs were stable, have increase secondary to yesterday's transfusion. EGD from yesterday showed sliding-type hiatal hernia without significant erosive esophagitis and mild gastritis involving the antrum and body of the stomach with some linear gastric erosions. Per Nephrology, be signing off at this moment in time, however due to thrombocytopenia, we will hold the removal of subclavian Jose M catheter until she is more stable. Congestion seen in chest x-ray, Lasix 20 mg once was given. 08/26/2025: Patient seen in the ICU. She is intubated, sedated, and mechanically ventilated. Vasopressin was discontinued, with SBP staying > 90. She is afebrile, HR is low borderline normal, and SBP remains over 90. Labs are stable, ammonia continues to downtrend. Per GI, they will perform bedside EGD. She will have one unit of platelets transfused. 08/25/2025: Patient seen in the ICU. She is intubated, sedated, mechanically ventilated, on vasopressin. Per nurse, attempts were made to titrate down the vasopressin overnight guided by keeping SBP > 90, however, SBP dropped down to the 70s, requiring vaso to be titrated back up to 0.03. This morning she was titrated down to 0.02. Dopamine was titrated down to 1. Sedation has also been decreased. No further bradycardic episodes reported. 1 unit of platelets was transfused by GI. 08/24/2025: Patient seen in the ICU. She is intubated, sedated, and mechanically ventilated on pressors. Per nurse, the patient was bradycardic overnight with heart rate in the 30s, for which dopamine was started. Levophed was able to be discontinued. Additionally they report another frankly bloody bowel movements with clots. CBC from last night showed interval increase in Hb and platelets, which remained stable per morning labs. White count continued to decrease. Vasopressin will be discontinued. We will continue to monitor. 08/23/2025: Patient seen in the ICU. She is intubated, sedated, and mechanically ventilated on pressors. Per nurse, overnight the patient presented sinus pauses however they could not be captured on EKG. Additionally refers one bloody bowel movement overnight described as dark burgundy. She is afebrile, bradycardic, normotensive on pressors. Labs show persistent leukopenia that continues to down trend, thrombocytopenia, and improved renal function post hemodialysis. We will transition the patient to TPN. Objective vital signs Vital Sign Date Time Temp Pulse Resp B/P (MAP) Pulse Ox O2 Delivery O2 Flow Rate FiO2 08/27/25 15:30 67 22 106/41 (62) 96 30 08/27/25 14:00 Mechanical Ventilator+ 08/27/25 07:30 98.7 98.7 Total Intake and Output 08/26/25 08/26/25 08/27/25 15:00 23:00 07:00 Intake Total 576.7 ml 984.196 ml 405.424 ml Output Total 850 ml 350 ml Balance 576.7 ml 134.196 ml 55.424 ml medications Current Medications Medications Dose Ordered Sig/Erum Route Start Time Stop Time Status Last Admin Dose Admin Albuterol 2.5 mg Q6HPRN PRN NEB 08/15/25 21:45 08/25/25 02:20 2.5 MG Acetaminophen 650 mg Q6HP PRN PO 08/15/25 22:15 Morphine Sulfate 2 mg Q30M PRN IV 08/19/25 09:15 Sodium Chloride 10 ml QSHIFT@,22 IV 08/19/25 22:00 08/27/25 09:48 10 ML Fentanyl Citrate 250 ml @ 2.5 mls/hr Q24H IV 08/19/25 16:45 08/27/25 03:02 15 MLS/HR Norepinephrine Bitartrate 32 mg/ Sodium Chloride 250 ml @ 0.938 mls/ hr Q24H IV 08/19/25 19:45 08/23/25 09:50 1.875 MLS/HR Pantoprazole Sodium 40 mg BID IV 08/22/25 10:00 08/27/25 09:47 40 MG Albumin Human 100 ml @ 100 mls/hr PRN PRN IV 08/22/25 17:00 Meropenem 50 ml @ 17 mls/hr Q8HR IV 08/23/25 22:00 08/27/25 15:10 17 MLS/HR Dopamine HCl/ Dextrose 250 ml @ 10.995 mls/ hr [id number] IV 08/23/25 22:00 08/27/25 02:57 10.995 MLS/HR Vasopressin 20 units/Sodium Chloride 100 ml @ 9 mls/hr Q11H7M IV 08/24/25 18:15 08/25/25 04:49 6 MLS/HR Midodrine 10 mg TID@0600,1200,1800 NG 08/25/25 18:00 08/27/25 12:46 10 MG Sodium Chloride 10 meq/Potassium Chloride 10 meq/ Calcium Gluconate 6.3 meq/Magnesium Sulfate 10 meq/ Multivitamins 10 ml/Potassium Phosphate 20 meq/ Amino Acids/ Dextrose/Purified Water 1,038.0938 ml @ 43 mls/hr Q24H9M IV 08/26/25 22:00 08/27/25 21:59 Cancel Enteral Nutritional Formula 1,000 ml 30ML/HR GT 08/26/25 15:00 08/26/25 21:26 1,000 ML Propofol 100 ml @ 4.404 mls/ hr [id number] IV 08/26/25 21:15 08/27/25 10:43 8.808 MLS/HR Lactulose 30 ml DAILY PO 08/28/25 10:00 Examination General: The patient intubated, sedated, and mechanically ventilated HEENT: Normocephalic, atraumatic, equal sluggish pupils, no EOM, pale conjunctiva, ET tube in place, OG-tube in place Respiratory/pulmonary: Bilateral chest expansion, clear lungs bilaterally, no associated crackles or wheezes, presence of Jose M catheter in right pectoral region Cardiovascular: Irregular rhythm Abdomen: Obese, Abdomen nondistended, normal bowel sounds, soft, there is no pain to palpation in any of the abdominal quadrants, no palpable masses. Extremities: No deformities, bilateral pitting edema worse in the calves 3+, pulses are present Skin: Bruising and skin tears noted on left arm, skin tears noted on the left calf Neurological: Unable to evaluate due to sedation laboratory and microbiology Laboratory Tests 08/27/25 03:00 Test 08/27/25 03:00 Range/Units Serum Glucose 102 74-106 mg/dL Microbiology Date/Time Source Procedure Growth Status 08/23/25 16:30 Urine - Abreu Port Urine Culture - Final Complete 08/18/25 10:55 Nose MRSA Screen - Final Complete Problem List/Assessment/Plan Problem List/Assessment/Plan Neurology # Acute metabolic encephalopathy likely due to hyperammonemia # Sedated - Propofol 10 mcg/kg/hr - Fentanyl 150 mcg/hr Cardiovascular # Acute on chronic HFpEF heart failure -Likely precipitated by fluid overload and sepsis -Echocardiogram: LVEF 50%. mild mitral regurgitation. mild tricuspid regurgitation. mild to moderate pulmonic regurgitation -Furosemide 40 IV daily, discontinued -Bumex drip, discontinued -Jardiance, Furosemide, and carvedilol held at this time - Furosemide 20 mg IV once #Chronic Atrial Fibrillation - Amiodarone - held due to bradycardia # Severe Pulmonary Hypertension - Sildenfil - held - Ambrisentan 5 mg - held # Bradycardia - Midodrine 10 mg TID - Dopamine 2 mcg Respiratory # Acute hypoxic respiratory failure # Acute hypercapneic respiratory failure # Ventilator -Intubated (08/19/2025) -On [facility] vent : VCAC Mode RR 22 TV 450ml, PEEP Of 8 and FiO2 of 30% # Pulmonary Edema with bilateral pleural effusioins - Chest xray: Stable appearing pulmonary edema and small bilateral pleural effusions. # Pneumonia ruled out - Azithromycin discontinued GI # Acute hypovolemic shock likely due to Lower GI Bleed - 8 PRBC transfusions, 4 FFPs, 5 Platelet transfusions - Per GI: Patient will undergo EGD today - Sandostatin drip - Protonix 40 mg IV BID - Vasopressin discontinued - Quadlevo discontinued # Liver cirrhosis likely due to fatty liver disease # Cholelithaisis - Abdominal US: The gallbladder wall measures 0.3 cm and is normal in size. Gallstones are noted. # 2 cm sliding type hiatal hernia # Mild gastritis - EGD 08/26/2025: Cm sliding-type hiatal hernia with no significant erosive esophagitis, mild gastritis involving the antrum and body of the stomach with some linear gastric erosions -recommendations per Gastroenterology: For biopsy resolved, place patient on Protonix 40 mg b.i.d. IV, discontinue IV Sandostatin drip, continue to monitor labs and transfuse if hemoglobin drops below 7, an elective colonoscopy once medically stabilized # Peptic ulcer prophylaxis -Pantoprazole 40 mg IV BID # Abreu catheter present draining clear urine # Complicated UTI - Urine culture: E coli ESBL - Meropenem 1 g IV q8 hrs - UA shows signs of improved infection - UC: No growth after 48 hours Nephrology # RUDDY on CKD likely due to VMN/hemodynamic requiring dialysis - Per nephrology, renal function is improving. Dialysis is being held at this time. - for Nephrology, they will be signing off at this time. However due to thrombocytopenia, they recommend that Jose M catheter remain in its place until patient is more stabilized. # Hyperkalemia, resolved - Monitor potassium levels # Hypernatremia - Monitor Infectious disease # Possible Septic Shock due to UTI - Meropenem 1 g IV BID - Urine Culture: E. Coli ESBL - Follow up UA shows improvement follow up UC shows no growth at 48 hours - Vasopressin discontinued - Quadlevo discontinued Hem/onc # Acute hypovolemic shock likely due to Lower GI Bleed - 8 PRBC transfusions, 4 FFPs, 5 Platelet transfusions - Per GI: Patient will go for endoscopy once more stable - Sandostatin drip - Protonix 40 mg IV BID # Pancytopenia - Possibly associated to liver disease DVT prophylaxis: SCDs Nutrition: TPN Lines -R PICC line 08/19 -Abreu catheter 08/19 -ET tube: 08/19 -Jose M catheter 08/19 Drips during mech ventilation Propofol 10 mcg/kg/min Fentanyl 150 mcg/hr Vasopressin discontinued Dopamine 2 Quadlevo discontinued Sandostatin discontinued Patient is currently on vasopressin will be discontinued. SBP to be > 90. Dopamine is on for support of heart rate. Patient is in critical condition, all findings and implications have been relayed to her sons at bedside. Questions and concerns were thoroughly addressed, prognosis is poor. Critical care time 75 minutes excluding procedure. Code status discussed greater than 20 minutes: Full CODE STATUS. Family at bedside explained about the condition of the patient Plan discussed with Dr. Puga Plan discussed with: Son, Other (Nurse ( Kareen)) My Orders My Orders Orders - DONAL KILLIAN Procedure Category Date Status Time Chest Portable XY 08/26/25 Resulted 20:52 Abg W/ Co-Ox RT 08/27/25 Logged 05:00 Complete Blood Count LAB 08/28/25 Verified 04:00 Comprehensive LAB 08/28/25 Verified Metabolic Panel 04:00 Abg W/ Co-Ox RT 08/28/25 Logged 04:00 Chest Xray 1 View XY 08/28/25 Logged 04:00 Magnesium LAB 08/28/25 Verified 04:00 Phosphorus LAB 08/28/25 Verified 04:00 Ammonia LAB 08/28/25 Verified 04:00 CC Plasma Assessment Blood Product Administration S: 1245 Visit Coding STANDARD RES Billing Provider: SILVIA PUGA MD Date of Service if different f: Aug 27, 2025 Common Visit Codes: 49864-NBATDCRI CARE 30-74 MIN, 50741-SPHGAVNL CARE-EACH +30MIN DONAL KILLIAN RESIDENT Aug 27, 2025 16:18
--- NOTE | 2025-08-27 22:58 | DVHPN2 ---
Subjective DOS: 08/27/2025 Patient seen and examined at bedside. Sedated, intubated on mechanical ventilator. Overnight events reviewed. Reviewed: H&P Changes from previous H/P or p: No Changes Objective Vitals Vital Signs Date Time Temp Pulse Resp B/P (MAP) Pulse Ox O2 Delivery O2 Flow Rate FiO2 08/27/25 22:30 62 22 122/40 (67) 96 08/27/25 22:20 30 08/27/25 22:00 Mechanical Ventilator+ 08/27/25 20:00 98.9 98.9 Intake/Output Intake and Output 08/27/25 07:00 Intake Total 1966.320 ml Output Total 1200 ml Balance 766.320 ml IV Total 1193.320 ml Tube Feeding 77 ml Blood Product 696 ml Output Urine Total 1100 ml Gastric Drainage Total 100 ml Exam Gen.: Patient lying in bed in medical ICU. Sedated, intubated on mechanical ventilator. Head: Normocephalic, atraumatic. Eyes: PERRLA. Ears: Normal external anatomy. Throat: Endotracheal tube and orogastric tube in place. Neck: Supple, trachea midline. Chest: Transmitted breath sounds bilaterally. Decreased air entry bilaterally. No wheezing. Bibasilar crackles. Cardiovascular: Positive S1, positive S2. Regular rate and rhythm. Abdomen: Positive bowel sounds in all 4 quadrants. Soft, nontender, nondistended. : Abreu in place. Normal external genitalia. Rectal: Deferred. Skin: Warm, dry. Intact. Extremities: 2+ radial pulses bilaterally. No lower extremity edema. Neuro: Sedated. General Appearance: Other (intubated and sedated) HEENT: Atraumatic Lungs: Other (On mechanical ventilator) Cardiovascular: Regular rate, Normal S1, Normal S2 Abdomen: Normal bowel sounds Medications Current Medications Medications Dose Ordered Sig/Erum Route Start Time Stop Time Status Last Admin Dose Admin Albuterol 2.5 mg Q6HPRN PRN NEB 08/15/25 21:45 08/25/25 02:20 2.5 MG Acetaminophen 650 mg Q6HP PRN PO 08/15/25 22:15 Morphine Sulfate 2 mg Q30M PRN IV 08/19/25 09:15 Sodium Chloride 10 ml QSHIFT@10,22 IV 08/19/25 22:00 08/27/25 21:27 10 ML Fentanyl Citrate 250 ml @ 2.5 mls/hr Q24H IV 08/19/25 16:45 08/27/25 18:03 15 MLS/HR Norepinephrine Bitartrate 32 mg/ Sodium Chloride 250 ml @ 0.938 mls/ hr Q24H IV 08/19/25 19:45 08/23/25 09:50 1.875 MLS/HR Pantoprazole Sodium 40 mg BID IV 08/22/25 10:00 08/27/25 21:27 40 MG Albumin Human 100 ml @ 100 mls/hr PRN PRN IV 08/22/25 17:00 Meropenem 50 ml @ 17 mls/hr Q8HR IV 08/23/25 22:00 08/27/25 21:27 17 MLS/HR Dopamine HCl/ Dextrose 250 ml @ 10.995 mls/ hr [id number] IV 08/23/25 22:00 08/27/25 22:20 10.995 MLS/HR Vasopressin 20 units/Sodium Chloride 100 ml @ 9 mls/hr Q11H7M IV 08/24/25 18:15 08/25/25 04:49 6 MLS/HR Midodrine 10 mg TID@0600,1200,1800 NG 08/25/25 18:00 08/27/25 17:58 10 MG Sodium Chloride 10 meq/Potassium Chloride 10 meq/ Calcium Gluconate 6.3 meq/Magnesium Sulfate 10 meq/ Multivitamins 10 ml/Potassium Phosphate 20 meq/ Amino Acids/ Dextrose/Purified Water 1,038.0938 ml @ 43 mls/hr Q24H9M IV 08/26/25 22:00 08/27/25 21:59 Cancel Enteral Nutritional Formula 1,000 ml 30ML/HR GT 08/26/25 15:00 08/26/25 21:26 1,000 ML Propofol 100 ml @ 4.404 mls/ hr [id number] IV 08/26/25 21:15 08/27/25 21:11 8.808 MLS/HR Lactulose 30 ml DAILY PO 08/28/25 10:00 Laboratory Results Laboratory Tests 08/27/25 03:00 Chemistry Test 08/27/25 03:00 Albumin 3.1 g/dL (3.2-4.8) L Calcium Level 8.1 mg/dL (8.7-10.4) L Total Protein 5.9 g/dL (5.7-8.2) LFT Test 08/27/25 03:00 Alanine Aminotransferase (ALT) 11 U/L (7-40) Alkaline Phosphatase 65 U/L (46-116) Aspartate Amino Transferase (AST) 27 U/L (13-40) Total Bilirubin 2.4 mg/dL (0.2-1.0) H Urinalysis Test 08/16/25 04:10 08/24/25 15:20 Urine WBC Clumps Present /hpf (None Seen) Urine Creatinine 50.59 mg/dL (30.0-125.0) Urine Protein/Creatinine Ratio 0.61 Urine Sodium 46 mmol/L (40-220) Urine Total Protein 30.8 mg/dL (1-14) H Urine Color Yellow (Yellow) Urine Clarity Turbid (Clear) H Urine pH 5.5 (5.0-9.0) Urine Specific [place] 1.017 (1.001-1.035) Urine Protein Trace (Negative) H Urine Ketones Negative (Negative) Urine Blood Negative /uL (Negative) Urine Nitrite Negative (Negative) Urine Bilirubin Negative (Negative) Urine Urobilinogen 2 mg/dL (Negative) H Urine Leukocyte Esterase 2+ /uL (Negative) Urine RBC <1 /hpf (0 - 4) Urine Microscopic WBC 25 /HPF (0-5) H Urine Squamous Epithelial Cells Mod /hpf (<5) Urine Bacteria None seen /hpf (None Seen) Urine Hyaline Casts Few /lpf (0 - 2) Urine Mucus Few (None Seen) Urine Glucose Normal mg/dL (Normal) Blood Gas Results Test 08/27/25 07:40 Arterial Blood pH 7.379 (7.350-7.450) FiO2 % 30.0 Microbiology Microbiology Date/Time Source Procedure Growth Status 08/23/25 16:30 Urine - Abreu Port Urine Culture - Final Complete 08/18/25 10:55 Nose MRSA Screen - Final Complete Assessment/Plan Assessment/Plan Impression: Acute on chronic hypoxic respiratory failure On mechanical ventilator Pulmonary hypertension Congestive heart failure Morbid obesity Acute on chronic renal failure Pancytopenia Events: Patient was emergently intubated and placed on mechanical ventilator on 08/19/25 She was noted to have massive bloody bowel movement; had rapid transfusion of 2 units PRBC Continue vent support On AC mode; RR 22, VT 450, PEEP 8, FiO2 30% Taper FiO2 as tolerated ABG reviewed, compensated. Chest x-ray reveals congestion. Sedated on Propofol, Fentanyl. Plan to remove right subclavian vein Jose M catheter No further bloody bowel movements. Monitor hemoglobin - currently stable. Platelet transfusion as necessary. Protonix BID EGD from yesterday showed sliding-type hiatal hernia. GI recs appreciated. Hemodialysis per Nephrology Nephrology recs appreciated Remains off pressors, monitor hemodynamics On Dopamine 2 mcg/min Continue bronchodilators. Continue antibiotics Monitor blood pressure -midodrine for BP support Tube feeds for nutritional support Labs and imaging reviewed. Plan: S/p intubation on mechanical ventilator. On AC mode; RR 22, VT 450, PEEP 8, FiO2 30% Titrate FIO2 to keep O2 saturation above 90%. VAP bundle. Daily ABG and CXR while intubated Sedate for ventilator synchrony Pressors for hemodynamic support Titrate to keep mean arterial pressure greater than 65 mmHg Continue bronchodilators. Continue antibiotics Follow up Nephrology recs HD per Nephrology Diurese to euvolemia Monitor renal function. Monitor electrolytes. Supplement as necessary. Hyperkalemia resolved Monitor ins and outs. DVT prophylaxis. Prognosis: Poor given patient's multiple co-morbidities. Condition: Critical Rest of plan per hospitalist and other consultants. A total of 35 minutes of critical care time was spent reviewing the patient record, examining the patient, making a diagnostic and therapeutic plan, discussing this plan with the medical personnel, following up on diagnostic studies and following the patient for clinical stability excluding any and all procedures. At least 50% of this time was spent in direct, [id number] contact. Thank you, Dr. Longo, for allowing me to participate in this patient's care. Further recommendations will depend on the patient's clinical course. Please do not hesitate to contact me if you have any questions or concerns. This medical document was created using an electronic medical record system with [employer] system. Although these documentations are being carefully reviewed, there may still be some phonetic and typographical changes. The errors are purely typographical, due to imperfection on the software program, and do not reflect any compromise in the patient's medical care. Plan discussed with: Other (RYAN Mathur) Visit Coding Pulmonary Billing Provider: SILVIA RIVAS MD Date of Service if different f: Aug 27, 2025 Common Visit Codes: [id number] INP/OBS CARE(HIGH), 38516-[id number] CARE 30-74 MIN SILVIA RIVAS MD Aug 27, 2025 22:58
[2025-08-28] VITALS (106 sets, daily range): BP systolic 89–168; BP diastolic 25–77; PULSE 54–83; RESP 15–24; TEMP 97.8–98.8; O2SAT 93–100
[2025-08-28 04:44] LABS: Hematocrit 24.9 % (36.0-46.0)
[2025-08-28 04:48] LABS: Hemoglobin 8.5 g/dL (12.2-16.2); Mean Corpuscular Hemoglobin 29.7 pg (28.0-32.0); Mean Corpuscular Volume 86.6 fL (80.0-100.0)
[2025-08-28 05:03] LABS: Alanine Aminotransferase 10 U/L (7-40); Alkaline Phosphatase 75 U/L (46-116); Anion Gap 6 (5-15); BUN/Creatinine Ratio 30.1 (10.0-20.0); Carbon Dioxide 29 mmol/L (20-31); Chloride 101 mmol/L (98-107); Magnesium 1.8 mg/dL (1.6-2.6); Potassium 3.8 mmol/L (3.5-5.1); Sodium 136 mmol/L (136-145)
[2025-08-28 05:06] LABS: Albumin 2.8 g/dL (3.2-4.8); Bilirubin, Total 2.3 mg/dL (0.2-1.0); Blood Urea Nitrogen 34 mg/dL (9-23); Calcium 7.5 mg/dL (8.7-10.4); Glucose 165 mg/dL (74-106); Total Protein 5.1 g/dL (5.7-8.2)
[2025-08-28 05:21] LABS: Total Cells Counted 100.0 (100)
--- NOTE | 2025-08-28 06:53 | DVH ---
CHEST RADIOGRAPH INDICATION: Intubated TECHNIQUE: Single frontal view of the chest was obtained COMPARISON: XY CHEST XRAY 1 VIEW on DOS: 08/27/25, XY CHEST PORTABLE on DOS: 08/26/25, XY CHEST XRAY 1 VIEW on DOS: 08/26/25, XY CHEST XRAY 1 VIEW on DOS: 08/25/25, XY CHEST XRAY 1 VIEW on DOS: 08/24/25, XY CHEST XRAY 1 VIEW on DOS: 08/27/25 FINDINGS: Lines and Tubes: Endotracheal tube and enteric catheter in satisfactory position. Left PICC in satisfactory position. Right central venous catheter in satisfactory position. Lungs: Increased pulmonary vascular congestion. Pleura: No effusion.No pneumothorax. Cardiomediastinal contours: Unremarkable Bones: Unremarkable IMPRESSION: 1. Increased pulmonary vascular congestion.
[2025-08-28 08:06] LABS: Base Excess 4.8 mmol/L (-2.0-3.0)
[2025-08-28] MEDS: LACTULOSE 20Gm/30ML SOLN PO SCH (10:16)
--- NOTE | 2025-08-28 11:33 | DVHPNRES ---
Progress Note Date Seen: Aug 28, 2025 Resident Creating Document: SHWETA DURAN RESIDENT Has the PT tested + for MRSA If YES, has PT been informed?: No Medical Necessity Reason Pt with a Central, PICC or Fol: Yes The following are medically ne: PICC Line, Abreu Catheter Subjective Review of Systems Ms. Worthington is a 65 year old female with prior medical history of HFrEF, liver cirrhosis, Chronic Atrial fibrillation, Anemia with multiple blood transfusions in the past, and pulmonary hypertension, who presented to [facility] via EMS due shortness of breath. At the time of evaluation the patient is sedated and intubated, history was taken by from her sons Shashank and Dalia at bedside and from previous medical record. Per her sons, the patient has had progressively worsening bilateral leg edema for the last month associated woth worsening shortness of breath for two weeks. They state that she is compliant with her medications, however, every few months they have to take their mom to the hospital for similar symptoms, with most recent hospitalization at this institution in late May 2025. She was seen by her home health nurse on Friday (08/15/2025) night, who told the family to call EMS. Per record, on scene she was found to have a saturation of 90% on room air, she placed on 2 L NC with improvement to 92% and brought to the emergency department. On initial evaluation in the ED, she was afebrile, normocardic, MAP within normal range, saturating adequeatly on 2L NC. She was found to have anasarca reaching up to her thighs. 12 lead EKG showed atrial fibrilation. Initial labs are significant for pancytopenia, hyperkalemia, BUN 84, creatinine 2.14, BNP 207, troponins negative, and lipase 178. UA is consistent with a UTI. Chest Xray significant for hazy opacities throughout the right lung, and stable cardiomediastinal enlargement. The patient was started on IV lasix, hyperkalemia protocol, IV antibiotics, and of 1 PRBC and was admitted for further work up and management. The patient was evaluated by nephrology who initially recommended diuresis, albumin and low dose dopamine, and midodrine, however, due to progressively worsening kidney function, dialysis was recommended. On 08/18/2025 patient was found lethargic and disoriented, blood gas showed hypoxic and hypercapneic respiratory failure, she was started on BiPAP and transferred to the ICU. Mentation continued to deteriorate and required intubation for airway protection and respiratory insuffiency. Patient presented two large bloody bowel movements requiring emergent transfusion of 2 PRBCs and vasopressors. She was evaluated by gastroenterology who recommended use of PPI, ocreotide, and transfusions as needed with endoscopy when stable. On my initial evaluation in ICU, the patiet is intubated, sedated, and mechanically ventilated. She continues of 2 pressors, with drips recommended by GI. Prior medical history: HFrEF, Liver cirrhosis, Chronic Atrial Fibrillation, Anemia s/p multiple blood transfusions, and pulmonary hypertension Prior surgical history: 3 c-sections Allergies: Deny Social: Sons deny any previous drug, tobacco, or alcohol use. She recently moved to the area to live with her son, Dalia. Maggiivew of systems: Unable to obtain due to patient being sedated and intubated 08/29/2025 The patient was evaluated at bedside today in the ICU. Over the past 24 hours, she remains critically ill. Laboratory studies today demonstrate persistent pancytopenia (WBC 2.8, Hgb 8.5, platelets 62), improving renal function, and ongoing hepatic dysfunction with hyperbilirubinemia and hyperammonemia, Chest X-ray today shows stable line and tube positioning without new infiltrates. GI service initiated lactulose and IV iron. Nephrology has signed off, with plans to remove the dialysis catheter once platelet count improves and patient stability allows. 08/27/2025: Patient seen in the ICU. She is intubated, sedated, mechanically ventilated. Vasopressin has been discontinued. Dopamine is currently at 2 mcg, attempts to decrease has resulted in decreases in SBP below 90 mmHg. Labs were stable, have increase secondary to yesterday's transfusion. EGD from yesterday showed sliding-type hiatal hernia without significant erosive esophagitis and mild gastritis involving the antrum and body of the stomach with some linear gastric erosions. Per Nephrology, be signing off at this moment in time, however due to thrombocytopenia, we will hold the removal of subclavian Jose M catheter until she is more stable. Congestion seen in chest x-ray, Lasix 20 mg once was given. 08/26/2025: Patient seen in the ICU. She is intubated, sedated, and mechanically ventilated. Vasopressin was discontinued, with SBP staying > 90. She is afebrile, HR is low borderline normal, and SBP remains over 90. Labs are stable, ammonia continues to downtrend. Per GI, they will perform bedside EGD. She will have one unit of platelets transfused. 08/25/2025: Patient seen in the ICU. She is intubated, sedated, mechanically ventilated, on vasopressin. Per nurse, attempts were made to titrate down the vasopressin overnight guided by keeping SBP > 90, however, SBP dropped down to the 70s, requiring vaso to be titrated back up to 0.03. This morning she was titrated down to 0.02. Dopamine was titrated down to 1. Sedation has also been decreased. No further bradycardic episodes reported. 1 unit of platelets was transfused by GI. 08/24/2025: Patient seen in the ICU. She is intubated, sedated, and mechanically ventilated on pressors. Per nurse, the patient was bradycardic overnight with heart rate in the 30s, for which dopamine was started. Levophed was able to be discontinued. Additionally they report another frankly bloody bowel movements with clots. CBC from last night showed interval increase in Hb and platelets, which remained stable per morning labs. White count continued to decrease. Vasopressin will be discontinued. We will continue to monitor. 08/23/2025: Patient seen in the ICU. She is intubated, sedated, and mechanically ventilated on pressors. Per nurse, overnight the patient presented sinus pauses however they could not be captured on EKG. Additionally refers one bloody bowel movement overnight described as dark burgundy. She is afebrile, bradycardic, normotensive on pressors. Labs show persistent leukopenia that continues to down trend, thrombocytopenia, and improved renal function post hemodialysis. We will transition the patient to TPN. Objective vital signs Vital Sign Date Time Temp Pulse Resp B/P (MAP) Pulse Ox O2 Delivery O2 Flow Rate FiO2 08/28/25 10:13 77 22 119/58 (78) 96 30 08/28/25 10:00 Mechanical Ventilator+ 08/28/25 04:00 98.6 98.6 Total Intake and Output 08/27/25 08/27/25 08/28/25 15:00 23:00 07:00 Intake Total 278.424 ml 623.616 ml 538.020 ml Output Total 750 ml 650 ml Balance 278.424 ml -126.384 ml -111.980 ml medications Current Medications Medications Dose Ordered Sig/Erum Route Start Time Stop Time Status Last Admin Dose Admin Albuterol 2.5 mg Q6HPRN PRN NEB 08/15/25 21:45 08/25/25 02:20 2.5 MG Acetaminophen 650 mg Q6HP PRN PO 08/15/25 22:15 Morphine Sulfate 2 mg Q30M PRN IV 08/19/25 09:15 Sodium Chloride 10 ml QSHIFT@10,22 IV 08/19/25 22:00 08/28/25 10:16 10 ML Fentanyl Citrate 250 ml @ 2.5 mls/hr Q24H IV 08/19/25 16:45 08/28/25 09:23 15 MLS/HR Norepinephrine Bitartrate 32 mg/ Sodium Chloride 250 ml @ 0.938 mls/ hr Q24H IV 08/19/25 19:45 08/23/25 09:50 1.875 MLS/HR Pantoprazole Sodium 40 mg BID IV 08/22/25 10:00 08/28/25 10:16 40 MG Albumin Human 100 ml @ 100 mls/hr PRN PRN IV 08/22/25 17:00 Meropenem 50 ml @ 17 mls/hr Q8HR IV 08/23/25 22:00 08/28/25 06:47 17 MLS/HR Dopamine HCl/ Dextrose 250 ml @ 10.995 mls/ hr [id number] IV 08/23/25 22:00 08/27/25 22:20 10.995 MLS/HR Vasopressin 20 units/Sodium Chloride 100 ml @ 9 mls/hr Q11H7M IV 08/24/25 18:15 08/25/25 04:49 6 MLS/HR Midodrine 10 mg TID@0600,1200,1800 NG 08/25/25 18:00 08/28/25 06:47 10 MG Sodium Chloride 10 meq/Potassium Chloride 10 meq/ Calcium Gluconate 6.3 meq/Magnesium Sulfate 10 meq/ Multivitamins 10 ml/Potassium Phosphate 20 meq/ Amino Acids/ Dextrose/Purified Water 1,038.0938 ml @ 43 mls/hr Q24H9M IV 08/26/25 22:00 08/27/25 21:59 Cancel Enteral Nutritional Formula 1,000 ml 30ML/HR GT 08/26/25 15:00 08/28/25 08:54 1,000 ML Propofol 100 ml @ 4.404 mls/ hr [id number] IV 08/26/25 21:15 08/27/25 21:11 8.808 MLS/HR Lactulose 30 ml DAILY PO 08/28/25 10:00 08/28/25 10:16 30 ML Examination General: The patient intubated, sedated, and mechanically ventilated HEENT: Normocephalic, atraumatic, equal sluggish pupils, no EOM, pale conjunctiva, ET tube in place, OG-tube in place Respiratory/pulmonary: Bilateral chest expansion, clear lungs bilaterally, no associated crackles or wheezes, presence of Jose M catheter in right pectoral region Cardiovascular: Irregular rhythm Abdomen: Obese, Abdomen nondistended, normal bowel sounds, soft, there is no pain to palpation in any of the abdominal quadrants, no palpable masses. Extremities: No deformities, bilateral pitting edema worse in the calves 3+, pulses are present Skin: Bruising and skin tears noted on left arm, skin tears noted on the left calf Neurological: Unable to evaluate due to sedation laboratory and microbiology Laboratory Tests 08/28/25 04:20 Test 08/28/25 04:20 Range/Units Serum Glucose 165 H 74-106 mg/dL Microbiology Date/Time Source Procedure Growth Status 08/23/25 16:30 Urine - Abreu Port Urine Culture - Final Complete 08/18/25 10:55 Nose MRSA Screen - Final Complete Problem List/Assessment/Plan Problem List/Assessment/Plan Neurology # Acute metabolic encephalopathy likely due to hyperammonemia # Sedated - Propofol 10 mcg/kg/hr - Fentanyl 150 mcg/hr Cardiovascular # Acute on chronic HFpEF heart failure -Likely precipitated by fluid overload and sepsis -Echocardiogram: LVEF 50%. mild mitral regurgitation. mild tricuspid regurgitation. mild to moderate pulmonic regurgitation -Furosemide 40 IV daily, discontinued -Bumex drip, discontinued -Jardiance, Furosemide, and carvedilol held at this time - Furosemide 20 mg IV once #Chronic Atrial Fibrillation - Amiodarone - held due to bradycardia # Severe Pulmonary Hypertension - Sildenfil - held - Ambrisentan 5 mg - held # Bradycardia - Midodrine 10 mg TID - Dopamine 2 mcg Respiratory # Acute hypoxic respiratory failure # Acute hypercapneic respiratory failure # Ventilator -Intubated (08/19/2025) -On [facility] vent : VCAC Mode RR 22 TV 450ml, PEEP Of 8 and FiO2 of 30% # Pulmonary Edema with bilateral pleural effusioins - Chest xray: Stable appearing pulmonary edema and small bilateral pleural effusions. # Pneumonia ruled out - Azithromycin discontinued GI # Acute hypovolemic shock likely due to Lower GI Bleed segmental ischemic colitis or diverticular disease - 8 PRBC transfusions, 4 FFPs, 5 Platelet transfusions - Per GI: EGD Findings Stool occult positive, discontinued Sandostatin - Protonix 40 mg IV BID - Vasopressin discontinued - Quadlevo discontinued # Liver cirrhosis likely due to fatty liver disease # Cholelithaisis - Abdominal US: The gallbladder wall measures 0.3 cm and is normal in size. Gallstones are noted. # 2 cm sliding type hiatal hernia # Mild gastritis - EGD 08/26/2025: Cm sliding-type hiatal hernia with no significant erosive esophagitis, mild gastritis involving the antrum and body of the stomach with some linear gastric erosions -recommendations per Gastroenterology: For biopsy resolved, place patient on Protonix 40 mg b.i.d. IV, discontinue IV Sandostatin drip, continue to monitor labs and transfuse if hemoglobin drops below 7, an elective colonoscopy once medically stabilized Start IV iron therapy CT scan of the abdomen pelvis when patient is more stable # Peptic ulcer prophylaxis -Pantoprazole 40 mg IV BID # Abreu catheter present draining clear urine # Complicated UTI - Urine culture: E coli ESBL - Meropenem 1 g IV q8 hrs - UA shows signs of improved infection - UC: No growth after 48 hours Nephrology # RUDDY on CKD likely due to VMN/hemodynamic requiring dialysis - Per nephrology, renal function is improving. Dialysis is being held at this time. - for Nephrology, they will be signing off at this time. However due to thrombocytopenia, they recommend that Jose M catheter remain in its place until patient is more stabilized. # Hyperkalemia, resolved - Monitor potassium levels # Hypernatremia - Monitor Infectious disease # Possible Septic Shock due to UTI - Meropenem 1 g IV BID - Urine Culture: E. Coli ESBL - Follow up UA shows improvement follow up UC shows no growth at 48 hours - Vasopressin discontinued - Quadlevo discontinued Hem/onc # Acute hypovolemic shock likely due to Lower GI Bleed - 8 PRBC transfusions, 4 FFPs, 5 Platelet transfusions - Per GI: Patient will go for endoscopy once more stable - Sandostatin drip - Protonix 40 mg IV BID # Pancytopenia - Possibly associated to liver disease DVT prophylaxis: SCDs Nutrition: TPN Lines -R PICC line 08/19 -Abreu catheter 08/19 -ET tube: 08/19 -Jose M catheter 08/19 Drips during mech ventilation Propofol 10 mcg/kg/min Fentanyl 150 mcg/hr Vasopressin discontinued Dopamine 2 Quadlevo discontinued Sandostatin discontinued Patient is currently on vasopressin will be discontinued. SBP to be > 90. Dopamine is on for support of heart rate. Patient is in critical condition, all findings and implications have been relayed to her sons at bedside. Questions and concerns were thoroughly addressed, prognosis is poor. Critical care time 75 minutes excluding procedure. Code status discussed greater than 20 minutes: Full CODE STATUS. Family at bedside explained about the condition of the patient Plan discussed with Dr. Puga Plan discussed with: Son, Other (RN) CC Plasma Assessment Blood Product Administration S: [id number] Visit Coding STANDARD RES Billing Provider: SILVIA PUGA MD Date of Service if different f: Aug 28, 2025 SHWETA DURAN RESIDENT Aug 28, 2025 11:33
--- NOTE | 2025-08-28 18:46 | DVHPN2 ---
Progress Note - Dictate Date Seen: Aug 28, 2025 Has the PT tested + for MRSA If YES, has PT been informed?: No Medical Necessity Reason Pt with a Central, PICC or Fol: Yes The following are medically ne: PICC Line, Abreu Catheter Subjective Patient seen and examined at bedside. Sedated, intubated on mechanical ventilator. No active GI bleeding, EGD was negative, small hiatal hernia mild gastritis no bleeding vital signs Vital Sign Date Time Temp Pulse Resp B/P (MAP) Pulse Ox O2 Delivery O2 Flow Rate FiO2 08/28/25 18:30 74 22 111/32 (58) 96 08/28/25 18:00 Mechanical Ventilator+ 30 30 08/28/25 16:00 97.8 97.8 Total Intake and Output 08/27/25 08/27/25 08/28/25 15:00 23:00 07:00 Intake Total 278.424 ml 623.616 ml 538.020 ml Output Total 750 ml 650 ml Balance 278.424 ml -126.384 ml -111.980 ml medications Current Medications Medications Dose Ordered Sig/Erum Route Start Time Stop Time Status Last Admin Dose Admin Albuterol 2.5 mg Q6HPRN PRN NEB 08/15/25 21:45 08/28/25 18:00 2.5 MG Acetaminophen 650 mg Q6HP PRN PO 08/15/25 22:15 Sodium Chloride 10 ml QSHIFT@10,22 IV 08/19/25 22:00 08/28/25 10:16 10 ML Fentanyl Citrate 250 ml @ 2.5 mls/hr Q24H IV 08/19/25 16:45 08/28/25 09:23 15 MLS/HR Norepinephrine Bitartrate 32 mg/ Sodium Chloride 250 ml @ 0.938 mls/ hr Q24H IV 08/19/25 19:45 08/23/25 09:50 1.875 MLS/HR Pantoprazole Sodium 40 mg BID IV 08/22/25 10:00 08/28/25 10:16 40 MG Albumin Human 100 ml @ 100 mls/hr PRN PRN IV 08/22/25 17:00 Meropenem 50 ml @ 17 mls/hr Q8HR IV 08/23/25 22:00 08/28/25 13:23 17 MLS/HR Dopamine HCl/ Dextrose 250 ml @ 10.995 mls/ hr [id number] IV 08/23/25 22:00 08/27/25 22:20 10.995 MLS/HR Vasopressin 20 units/Sodium Chloride 100 ml @ 9 mls/hr Q11H7M IV 08/24/25 18:15 08/25/25 04:49 6 MLS/HR Midodrine 10 mg TID@0600,1200,1800 NG 08/25/25 18:00 08/28/25 18:03 10 MG Sodium Chloride 10 meq/Potassium Chloride 10 meq/ Calcium Gluconate 6.3 meq/Magnesium Sulfate 10 meq/ Multivitamins 10 ml/Potassium Phosphate 20 meq/ Amino Acids/ Dextrose/Purified Water 1,038.0938 ml @ 43 mls/hr Q24H9M IV 08/26/25 22:00 08/27/25 21:59 Cancel Enteral Nutritional Formula 1,000 ml 30ML/HR GT 08/26/25 15:00 08/28/25 08:54 1,000 ML Propofol 100 ml @ 4.404 mls/ hr [id number] IV 08/26/25 21:15 08/28/25 18:03 8.808 MLS/HR Lactulose 30 ml DAILY PO 08/28/25 10:00 08/28/25 10:16 30 ML objective General: Obese, afebrile, palor, mucosae are moist Cardiovascular: Regular S1 and S2. No murmurs, gallops or rubs. No JVD elevation. Bilateral pedal edema. Respiratory: Decreased breath sounds heard on auscultation, intubated Abdomen: Soft, nontender, nondistended, hypoactive bowel sounds, no rebound tenderness, no organomegaly, no masses Genitourinary: Abreu catheter seen Neurological: Pupils are isocoric and reactive. laboratory and microbiology Laboratory Tests 08/28/25 04:20 Test 08/28/25 04:20 Range/Units Serum Glucose 165 H 74-106 mg/dL Abd USG IMPRESSION: Mild asites . Hepatosplenomegaly. Gallstones. Problems(with codes): (1) Rectal bleeding (2) Acute hyperkalemia (3) Acute renal failure (4) Hypoxic respiratory failure (5) Acute on chronic heart failure (6) CHF exacerbation (7) Thrombocytopenia (8) Anemia (9) Hypoxemia Prognosis Plan Continue supportive care IV Protonix 40 mg daily Taper off the octreotide drip Start IV iron therapy Monitor labs Recommend CT scan of the abdomen pelvis when patient is more stable I suspect likely source of bleeding was either segmental ischemic colitis or diverticular disease Plan discussed with: Other (ICU Nurse) CC Plasma Assessment Blood Product Administration S: [id number] STEPHANIE CLAYTON MD Aug 28, 2025 18:46
[2025-08-29] VITALS (105 sets, daily range): BP systolic 60–158; BP diastolic 21–59; PULSE 63–143; RESP 14–27; TEMP 98.4–101; O2SAT 91–100
--- NOTE | 2025-08-29 00:29 | DVHPN2 ---
Subjective DOS: 08/28/2025 Patient seen and examined at bedside. Sedated, intubated on mechanical ventilator. Overnight events reviewed. Reviewed: H&P Changes from previous H/P or p: No Changes Objective Vitals Vital Signs Date Time Temp Pulse Resp B/P (MAP) Pulse Ox O2 Delivery O2 Flow Rate FiO2 08/29/25 00:20 78 22 158/51 (86) 95 30 08/28/25 22:00 Mechanical Ventilator+ 08/28/25 20:00 98.6 98.6 Intake/Output Intake and Output 08/29/25 07:00 Intake Total 896.595 ml Output Total 550 ml Balance 346.595 ml Intake Oral 60 ml IV Total 533.595 ml Tube Feeding 303 ml Output Urine Total 550 ml Exam Gen.: Patient lying in bed in medical ICU. Sedated, intubated on mechanical ventilator. Head: Normocephalic, atraumatic. Eyes: PERRLA. Ears: Normal external anatomy. Throat: Endotracheal tube and orogastric tube in place. Neck: Supple, trachea midline. Chest: Transmitted breath sounds bilaterally. Decreased air entry bilaterally. No wheezing. Bibasilar crackles. Cardiovascular: Positive S1, positive S2. Regular rate and rhythm. Abdomen: Positive bowel sounds in all 4 quadrants. Soft, nontender, nondistended. : Abreu in place. Normal external genitalia. Rectal: Deferred. Skin: Warm, dry. Intact. Extremities: 2+ radial pulses bilaterally. No lower extremity edema. Neuro: Sedated. General Appearance: Other (intubated and sedated) HEENT: Atraumatic Lungs: Other (On mechanical ventilator) Cardiovascular: Regular rate, Normal S1, Normal S2 Abdomen: Normal bowel sounds Medications Current Medications Medications Dose Ordered Sig/Erum Route Start Time Stop Time Status Last Admin Dose Admin Albuterol 2.5 mg Q6HPRN PRN NEB 08/15/25 21:45 08/28/25 18:00 2.5 MG Acetaminophen 650 mg Q6HP PRN PO 08/15/25 22:15 Sodium Chloride 10 ml QSHIFT@10,22 IV 08/19/25 22:00 08/28/25 22:17 10 ML Fentanyl Citrate 250 ml @ 2.5 mls/hr Q24H IV 08/19/25 16:45 08/28/25 09:23 15 MLS/HR Norepinephrine Bitartrate 32 mg/ Sodium Chloride 250 ml @ 0.938 mls/ hr Q24H IV 08/19/25 19:45 08/23/25 09:50 1.875 MLS/HR Pantoprazole Sodium 40 mg BID IV 08/22/25 10:00 08/28/25 22:17 40 MG Albumin Human 100 ml @ 100 mls/hr PRN PRN IV 08/22/25 17:00 Meropenem 50 ml @ 17 mls/hr Q8HR IV 08/23/25 22:00 08/28/25 22:18 17 MLS/HR Dopamine HCl/ Dextrose 250 ml @ 10.995 mls/ hr [id number] IV 08/23/25 22:00 08/27/25 22:20 10.995 MLS/HR Vasopressin 20 units/Sodium Chloride 100 ml @ 9 mls/hr Q11H7M IV 08/24/25 18:15 08/25/25 04:49 6 MLS/HR Midodrine 10 mg TID@0600,1200,1800 NG 08/25/25 18:00 08/28/25 18:03 10 MG Sodium Chloride 10 meq/Potassium Chloride 10 meq/ Calcium Gluconate 6.3 meq/Magnesium Sulfate 10 meq/ Multivitamins 10 ml/Potassium Phosphate 20 meq/ Amino Acids/ Dextrose/Purified Water 1,038.0938 ml @ 43 mls/hr Q24H9M IV 08/26/25 22:00 08/27/25 21:59 Cancel Enteral Nutritional Formula 1,000 ml 30ML/HR GT 08/26/25 15:00 08/28/25 08:54 1,000 ML Propofol 100 ml @ 4.404 mls/ hr [id number] IV 08/26/25 21:15 08/28/25 18:03 8.808 MLS/HR Lactulose 30 ml DAILY PO 08/28/25 10:00 08/28/25 10:16 30 ML Iron Sucrose 110 ml @ 110 mls/hr DAILY@1200 IV 08/29/25 12:00 09/02/25 11:59 Laboratory Results Laboratory Tests 08/28/25 04:20 Chemistry Test 08/28/25 04:20 Albumin 2.8 g/dL (3.2-4.8) L Calcium Level 7.5 mg/dL (8.7-10.4) L Magnesium Level 1.8 mg/dL (1.6-2.6) Phosphorus Level 2.4 mg/dL (2.4-5.1) Total Protein 5.1 g/dL (5.7-8.2) L LFT Test 08/28/25 04:20 Alanine Aminotransferase (ALT) 10 U/L (7-40) Alkaline Phosphatase 75 U/L (46-116) Aspartate Amino Transferase (AST) 30 U/L (13-40) Total Bilirubin 2.3 mg/dL (0.2-1.0) H Urinalysis Test 08/16/25 04:10 08/24/25 15:20 Urine WBC Clumps Present /hpf (None Seen) Urine Creatinine 50.59 mg/dL (30.0-125.0) Urine Protein/Creatinine Ratio 0.61 Urine Sodium 46 mmol/L (40-220) Urine Total Protein 30.8 mg/dL (1-14) H Urine Color Yellow (Yellow) Urine Clarity Turbid (Clear) H Urine pH 5.5 (5.0-9.0) Urine Specific [place] 1.017 (1.001-1.035) Urine Protein Trace (Negative) H Urine Ketones Negative (Negative) Urine Blood Negative /uL (Negative) Urine Nitrite Negative (Negative) Urine Bilirubin Negative (Negative) Urine Urobilinogen 2 mg/dL (Negative) H Urine Leukocyte Esterase 2+ /uL (Negative) Urine RBC <1 /hpf (0 - 4) Urine Microscopic WBC 25 /HPF (0-5) H Urine Squamous Epithelial Cells Mod /hpf (<5) Urine Bacteria None seen /hpf (None Seen) Urine Hyaline Casts Few /lpf (0 - 2) Urine Mucus Few (None Seen) Urine Glucose Normal mg/dL (Normal) Blood Gas Results Test 08/28/25 07:13 Arterial Blood pH 7.443 (7.350-7.450) FiO2 % 30.0 Microbiology Microbiology Date/Time Source Procedure Growth Status 08/23/25 16:30 Urine - Aberu Port Urine Culture - Final Complete 08/18/25 10:55 Nose MRSA Screen - Final Complete Assessment/Plan Assessment/Plan Impression: Acute on chronic hypoxic respiratory failure On mechanical ventilator Pulmonary hypertension Congestive heart failure Morbid obesity Acute on chronic renal failure Pancytopenia Events: Patient was emergently intubated and placed on mechanical ventilator on 08/19/25 She was noted to have massive bloody bowel movement; had rapid transfusion of 2 units PRBC Continue vent support On AC mode; RR 22, VT 450, PEEP 8, FiO2 30% Taper FiO2 as tolerated ABG reviewed, compensated. Chest x-ray reveals increased pulmonary vascular congestion. Sedated on Propofol, Fentanyl. Nephrology recs appreciated Plan to remove right subclavian vein Jose M catheter as platelets remain stable. No further bloody bowel movements. Monitor hemoglobin - currently stable. Protonix BID EGD reviewed, showed sliding-type hiatal hernia. GI recs appreciated. Hemodialysis per Nephrology Nephrology recs appreciated Remains off pressors, monitor hemodynamics Off Dopamine 2 mcg/min Continue bronchodilators. Continue antibiotics Monitor blood pressure -midodrine for BP support Continue lactulose due to elevated ammonia. Tube feeds for nutritional support Labs and imaging reviewed. Plan: S/p intubation on mechanical ventilator. On AC mode; RR 22, VT 450, PEEP 8, FiO2 30% Titrate FIO2 to keep O2 saturation above 90%. VAP bundle. Daily ABG and CXR while intubated Sedate for ventilator synchrony Pressors for hemodynamic support Titrate to keep mean arterial pressure greater than 65 mmHg Continue bronchodilators. Continue antibiotics Follow up Nephrology recs HD per Nephrology Dimercedeze to euvolemia Monitor renal function. Monitor electrolytes. Supplement as necessary. Hyperkalemia resolved Monitor ins and outs. DVT prophylaxis. Prognosis: Poor given patient's multiple co-morbidities. Condition: Critical Rest of plan per hospitalist and other consultants. A total of 35 minutes of critical care time was spent reviewing the patient record, examining the patient, making a diagnostic and therapeutic plan, discussing this plan with the medical personnel, following up on diagnostic studies and following the patient for clinical stability excluding any and all procedures. At least 50% of this time was spent in direct, [id number] contact. Thank you, Dr. Longo, for allowing me to participate in this patient's care. Further recommendations will depend on the patient's clinical course. Please do not hesitate to contact me if you have any questions or concerns. This medical document was created using an electronic medical record system with [employer] system. Although these documentations are being carefully reviewed, there may still be some phonetic and typographical changes. The errors are purely typographical, due to imperfection on the software program, and do not reflect any compromise in the patient's medical care. Plan discussed with: Other (RYAN Hawkins) Visit Coding Pulmonary Billing Provider: SILVIA RIVAS MD Date of Service if different f: Aug 28, 2025 Common Visit Codes: 21483-[id number] INP/OBS CARE(HIGH), [id number] CARE 30-74 MIN SILVIA RIVAS MD Aug 29, 2025 00:29
[2025-08-29 04:39] LABS: Hemoglobin 8.3 g/dL (12.2-16.2); Nucleated Red Blood Cells % 0.1 %
[2025-08-29 04:41] LABS: Hematocrit 25.3 % (36.0-46.0); Mean Corpuscular Hemoglobin 28.1 pg (28.0-32.0); Mean Corpuscular Volume 85.7 fL (80.0-100.0)
[2025-08-29 05:09] LABS: Alanine Aminotransferase 11 U/L (7-40); Alkaline Phosphatase 93 U/L (46-116); Anion Gap 7 (5-15); BUN/Creatinine Ratio 27.4 (10.0-20.0); Carbon Dioxide 30 mmol/L (20-31); Chloride 106 mmol/L (98-107); Glucose 101 mg/dL (74-106); Magnesium 1.9 mg/dL (1.6-2.6); Potassium 4.1 mmol/L (3.5-5.1); Sodium 143 mmol/L (136-145)
[2025-08-29 05:12] LABS: Albumin 2.8 g/dL (3.2-4.8); Bilirubin, Total 2.5 mg/dL (0.2-1.0); Blood Urea Nitrogen 37 mg/dL (9-23); Calcium 7.9 mg/dL (8.7-10.4); Total Protein 5.5 g/dL (5.7-8.2)
--- NOTE | 2025-08-29 05:29 | DVH ---
CHEST RADIOGRAPH Indication: Acute hypoxic respiratory failure Technique: Single frontal view of the chest was obtained COMPARISON: XY CHEST XRAY 1 VIEW on DOS: 08/28/25, XY CHEST XRAY 1 VIEW on DOS: 08/27/25, XY CHEST PORTABLE on DOS: 08/26/25, XY CHEST XRAY 1 VIEW on DOS: 08/26/25, XY CHEST XRAY 1 VIEW on DOS: 08/25/25 FINDINGS: Lines and Tubes: Endotracheal tube, enteric catheter in satisfactory position. Lungs: Unchanged pulmonary edema. Pleura: Small bilateral pleural effusionsNo pneumothorax. Cardiomediastinal contours: Cardiomegaly. Bones: Unremarkable IMPRESSION: Lines and tubes in satisfactory position. No significant interval change.
[2025-08-29 07:06] LABS: Base Excess 2.1 mmol/L (-2.0-3.0)
--- NOTE | 2025-08-29 11:13 | DVH ---
EXAM: CT CT AB PEL WO CON-NO ORAL OR IV HISTORY: GI hemorrhage COMPARISON STUDY: US ABDOMEN COMPLETE SONOGRAM on DOS: 08/16/25, MRI PELVIS WO CONTRAST on DOS: 06/12/25, US PELVIC on DOS: 06/11/25, US ABDOMEN LIMITED on DOS: 06/10/25 TECHNIQUE: Multidetector CT of the abdomen and pelvis was performed from lung bases to pubic symphysis. Imaging was performed without IV contrast. Axial, coronal, and sagittal multiplanar reformats were obtained from the axial data set by the technologist. RADIATION DOSE: CTDI vol 27.9 mGy. DLP 1911.7 mGy.cm FINDINGS: Limited evaluation of the solid organs in the absence of IV contrast. Lungs: Incompletely assessed small bilateral pleural effusions with adjacent dense opacity. Small pericardial effusion. Liver: Nodular hepatic contour. Spleen: Splenomegaly measuring up to 16.6 cm. Pancreas: Unremarkable. Gallbladder: Contracted in appearance. Cholelithiasis. Adrenals: Unremarkable Kidneys: Unremarkable. Pelvic Viscera: Enlargement of the uterus with a lobulated contour and scattered calcifications, possibly referable to fibroids. Vasculature: Atherosclerotic aortoiliac calcification. Retroperitoneum: Small abdominopelvic ascites. Bowel: No bowel obstruction. Nasogastric tube is noted. Musculoskeletal: Unremarkable. Soft tissues: Diffuse subcutaneous edema. IMPRESSION: 1. Cirrhosis with stigmata of pulmonary hypertension as detailed. 2. Enlargement of the uterus with lobulated contour and scattered calcification, pelvic ultrasound or pelvic MRI is suggested in further assessment. 3. Dense bilateral lower lobe opacities may be referable to atelectasis, though superimposed infectious / inflammatory process cannot be excluded in the appropriate clinical setting. 4. Please note, evaluation for active bleeding is suboptimal in the absence of IV contrast and if clinically indicated, dedicated CTA may be beneficial in further assessment.
[2025-08-29] MEDS: IRON SUCROSE COMPLEX 110 ML IV SCH (12:37)
[2025-08-29] MEDS ORDERED: SODIUM CHLORIDE 0.9% 500 ML IV SCH (15:15)
[2025-08-29] MEDS: ALBUMIN 25% 50 ML IV ONE (15:42)
[2025-08-29] MEDS: SODIUM CHLORIDE 0.9% 500 ML IV ONE (15:45)
[2025-08-29 15:49] LABS: Hematocrit 25.9 % (36.0-46.0); Hemoglobin 8.5 g/dL (12.2-16.2); Mean Corpuscular Hemoglobin 28.5 pg (28.0-32.0); Mean Corpuscular Volume 86.9 fL (80.0-100.0); Nucleated Red Blood Cells % 0.1 %
--- NOTE | 2025-08-29 16:11 | DVHPNRES ---
Progress Note Date Seen: Aug 29, 2025 Resident Creating Document: KLAUDIA LOWE RESIDENT Has the PT tested + for MRSA If YES, has PT been informed?: No Medical Necessity Reason Pt with a Central, PICC or Fol: Yes The following are medically ne: PICC Line, Abreu Catheter Subjective Review of Systems Ms. Worthington is a 65 year old female with past medical history of HFpEF liver cirrhosis, chronic atrial fibrillation, anemia with multiple blood transfusions in the past, and pulmonary hypertension, who presented to [facility] via EMS due shortness of breath. Per her sons, the patient has had progressively worsening bilateral leg edema for the last month associated with worsening shortness of breath for two weeks. They state that she is compliant with her medications, however, every few months they have to take their mom to the hospital for similar symptoms, with most recent hospitalization in late May 2025. She was seen by her home health nurse on Friday (08/15/2025) night, who told the family to call EMS. As per records, on scene she was found to have a saturation of 90% on room air, she placed on 2 L NC with improvement to 92% and brought to the emergency department. On initial evaluation in the ER, she was afebrile, normocardic, MAP within normal range, saturating adequeatly on 2L NC. She was found to have anasarca reaching up to her thighs. 12 lead EKG showed atrial fibrilation. Initial labs are significant for pancytopenia, hyperkalemia, BUN 84, creatinine 2.14, BNP 207, troponins negative, and lipase 178. UA is consistent with a UTI. Chest Xray significant for hazy opacities throughout the right lung, and stable cardiomediastinal enlargement. The patient was started on IV lasix, hyperkalemia protocol, IV antibiotics, and of 1 PRBC and was admitted for further work up and management. The patient was evaluated by nephrology who initially recommended diuresis, albumin and low dose dopamine, and midodrine, however, due to progressively worsening kidney function, dialysis was recommended. On 08/18/2025 patient was found lethargic and disoriented, blood gas showed hypoxic and hypercapneic respiratory failure, she was started on BiPAP and transferred to the ICU. Mentation continued to deteriorate and required intubation for airway protection and respiratory insufficiency. Patient presented two large bloody bowel movements requiring emergent transfusion of 2 PRBCs and vasopressors. She was evaluated by gastroenterology who recommended use of PPI, ocreotide, and transfusions as needed with endoscopy when stable. Prior medical history: HFrEF, Liver cirrhosis, Chronic Atrial Fibrillation, Anemia s/p multiple blood transfusions, and pulmonary hypertension Prior surgical history: 3 c-sections Social: Sons deny any previous drug, tobacco, or alcohol use. She recently moved to the area to live with her son, Eli. Gilbertw of systems: Unobtainable in context of sedation & intubation. 08/29/25: Patient was seen at [facility] today. Patient is sedated and mechanically ventilated. Son Shashank was present in the bedside on bedside. After overnight patient had bradycardia and soft blood pressure, patient's vitalized somewhat in the morning. She underwent CT Abdomen as per GI recommendations. Eventually, patient was tachycardic, dopamine drip discontinued. Levophed started to maintain BP. Patient also exhibited another episode of bloody bowel movement; H&H remained stable. Objective vital signs Vital Sign Date Time Temp Pulse Resp B/P (MAP) Pulse Ox O2 Delivery O2 Flow Rate FiO2 08/29/25 15:33 105 22 95/32 (53) 99 35 08/29/25 12:00 Mechanical Ventilator+ 08/29/25 08:00 98.4 98.4 Total Intake and Output 08/28/25 08/28/25 08/29/25 15:00 23:00 07:00 Intake Total 280.646 ml 615.949 ml 624.641 ml Output Total 550 ml 400 ml Balance 280.646 ml 65.949 ml 224.641 ml medications Current Medications Medications Dose Ordered Sig/Erum Route Start Time Stop Time Status Last Admin Dose Admin Albuterol 2.5 mg Q6HPRN PRN NEB 08/15/25 21:45 08/29/25 11:17 2.5 MG Acetaminophen 650 mg Q6HP PRN PO 08/15/25 22:15 Sodium Chloride 10 ml QSHIFT@10,22 IV 08/19/25 22:00 08/29/25 10:54 10 ML Fentanyl Citrate 250 ml @ 2.5 mls/hr Q24H IV 08/19/25 16:45 08/29/25 05:21 2.5 MLS/HR Norepinephrine Bitartrate 32 mg/ Sodium Chloride 250 ml @ 0.938 mls/ hr Q24H IV 08/19/25 19:45 08/29/25 14:51 0.938 MLS/HR Pantoprazole Sodium 40 mg BID IV 08/22/25 10:00 08/29/25 10:00 40 MG Albumin Human 100 ml @ 100 mls/hr PRN PRN IV 08/22/25 17:00 Meropenem 50 ml @ 17 mls/hr Q8HR IV 08/23/25 22:00 08/29/25 14:15 17 MLS/HR Vasopressin 20 units/Sodium Chloride 100 ml @ 9 mls/hr Q11H7M IV 08/24/25 18:15 08/25/25 04:49 6 MLS/HR Midodrine 10 mg TID@0600,1200,1800 NG 08/25/25 18:00 08/29/25 12:36 10 MG Sodium Chloride 10 meq/Potassium Chloride 10 meq/ Calcium Gluconate 6.3 meq/Magnesium Sulfate 10 meq/ Multivitamins 10 ml/Potassium Phosphate 20 meq/ Amino Acids/ Dextrose/Purified Water 1,038.0938 ml @ 43 mls/hr Q24H9M IV 08/26/25 22:00 08/27/25 21:59 Cancel Enteral Nutritional Formula 1,000 ml 30ML/HR GT 08/26/25 15:00 08/29/25 04:00 1,000 ML Propofol 100 ml @ 4.404 mls/ hr [id number] IV 08/26/25 21:15 08/29/25 11:05 17.616 MLS/HR Lactulose 30 ml DAILY PO 08/28/25 10:00 08/29/25 10:46 30 ML Iron Sucrose 110 ml @ 110 mls/hr DAILY@1200 IV 08/29/25 12:00 09/02/25 11:59 08/29/25 12:37 110 MLS/HR Examination General: Patient sedated, intubated. HEENT: Pupils B/L equal and reactive to light. Normocephalic, atraumatic. Respiratory/pulmonary: Coarse breath sounds. Cardiovascular: Tachycardia, irregular heart sounds. Abdomen: Abdomen nondistended, normal bowel sounds heard. Extremities: Warm bilateral extremities. B/L upper arm ecchymosis. Grade 1 pitting edema in B/L lower limbs. Peripheral Pulses: 3+ Radial (R). 3+ Radial (L). 3+ Dorsalis pedis (R). 3+ Dorsalis pedis(L) Skin: Small partial thickness linear skin tears approximately 0.5X1 cm in abdominal folds, left arm and left lower leg. laboratory and microbiology Laboratory Tests 08/29/25 15:34 08/29/25 03:50 Test 08/29/25 03:50 Range/Units Serum Glucose 101 74-106 mg/dL Microbiology Date/Time Source Procedure Growth Status 08/23/25 16:30 Urine - Abreu Port Urine Culture - Final Complete 08/18/25 10:55 Nose MRSA Screen - Final Complete Problem List/Assessment/Plan Problem List/Assessment/Plan Neurology # Sedation, Analgesia Propofol 10 mcg/kg/hr Fentanyl 150 mcg/hr # Acute metabolic encephalopathy likely due to hyperammonemia Ammonia levels have normalized. Cardiovascular # Acute on chronic HFpEF heart failure Likely precipitated by fluid overload and sepsis Echocardiogram: LVEF 50%. mild mitral regurgitation. mild tricuspid regurgitation. mild to moderate pulmonic regurgitation Bumex drip, discontinued Jardiance, Furosemide, and carvedilol held at this time Furosemide 20 mg IV once # Chronic Atrial Fibrillation Amiodarone - held due to bradycardia # Severe Pulmonary Hypertension Sildenfil - held Ambrisentan 5 mg - held # Bradycardia Midodrine 10 mg TID Discontinued Dopamine 2 mcg d/t tachycardia Respiratory # Ventilator Intubated (08/19/2025) On [facility] ventilation: AC-VC TV of 450ml, PEEP Of 8 and FiO2 of 30% # Acute hypoxic respiratory failure # Acute hypercapneic respiratory failure S/p intubation Blood gas show normalization of pH, pCO2, pO2 # Pulmonary Edema with bilateral pleural effusioins Chest xray: Stable appearing pulmonary edema and small bilateral pleural effusions. # Pneumonia, ruled out Azithromycin discontinued Gastrointestinal # Acute hypovolemic shock likely due to Lower GI Bleed # Liver cirrhosis likely due to fatty liver disease # Segmental ischemic colitis or diverticular disease, possible # Hypoalbuminemia 8 PRBC transfusions, 4 FFPs, 5 Platelet transfusions Stool occult positive, discontinued Sandostatin Protonix 40 mg IV BID Vasopressin discontinued Quadlevo discontinued H&H stable; continue monitoring Dopamine switched to Levophed d/t Tachycardia; NS 250 cc bolus given Albumin supplementation ordered # Cholelithaisis Abdominal US: The gallbladder wall measures 0.3 cm and is normal in size. Gallstones are noted. # 2 cm sliding type hiatal hernia # Mild gastritis EGD 08/26/2025: 1-2 cm sliding-type hiatal hernia with no significant erosive esophagitis, mild gastritis involving the antrum and body of the stomach with some linear gastric erosions GI recommended Protonix 40 mg b.i.d. IV, discontinue IV Sandostatin drip, continue to monitor labs and transfuse if hemoglobin drops below 7, elective colonoscopy once medically stabilized Continue IV iron therapy CT scan of the abdomen pelvis shows liver cirrhosis, splenomegaly. Pulmonary hypertension, B/L LL opacities. Enlargement of the uterus with a lobulated contour and scattered calcifications, possibly referable to fibroids. Genitourinary # Abreu catheter present draining clear urine # Complicated UTI Urine culture: E coli ESBL Meropenem 1 g IV q8 hrs UA shows signs of improved infection UC: No growth after 48 hours Nephrology # RUDDY on CKD likely due to hemodynamically mediated (d/t VMN) Per nephrology, renal function is improving, dialysis is being held at this time. Jose M catheter remain in its place due to thrombocytopenia until patient is more stabilized. # Hyperkalemia, resolved # Hypernatremia Monitor BMP Infectious disease # Possible Septic Shock due to UTI Meropenem 1 g IV BID Urine Culture: E. Coli ESBL Follow up UA shows improvement; Follow up UC shows no growth at 48 hours Vasopressin discontinued Quadlevo discontinued Hem/onc # Acute hypovolemic shock likely due to Lower GI Bleed Managed w/ 8 PRBC transfusions, 4 FFPs, 5 Platelet transfusions D/c Sandostatin drip Protonix 40 mg IV BID Dopamine switched to Levophed d/t Tachycardia # Pancytopenia Possibly associated to liver cirrhosis DVT prophylaxis: SCDs Peptic ulcer prophylaxis: Pantoprazole 40 mg IV BID Nutrition: TPN Lines -R PICC line 08/19 -Abreu catheter 08/19 -ET tube: 08/19 -Jose M catheter 08[facility]: Propofol 10 mcg/kg/min Fentanyl 150 mcg/hr Vasopressin Quadlevo discontinued Sandostatin discontinued Dopamine discontinued Levophed started (08/29/25) Patient is currently on vasopressin, Levophed will be discontinued. SBP to be > 90. Dopamine discontinued d/t elevated heart rate. Patient is in critical condition, all findings and care plan discussed with her son at bedside. Questions and concerns were thoroughly addressed, prognosis is poor. Critical care time 81 minutes excluding procedure. Code status discussed greater than 20 minutes: Full CODE STATUS. Family at bedside explained about the condition of the patient Plan discussed with Dr. Malin Plan discussed with: Patient My Orders My Orders Orders - KLAUDIA LOWE Procedure Category Date Status Time Ct Ab Pel Wo Con-No CT 08/29/25 Resulted Oral Or Iv 08:14 CC Plasma Assessment Blood Product Administration S: 1245 Date of Service: Aug 29, 2025 Billing Provider: ALINA GALLO MD Common Visit Codes: 52937-[id number] CARE 30-74 MIN, [id number] CARE-EACH +30MIN KLAUDIA LOWE Aug 29, 2025 16:11 ALINA GALLO MD Aug 30, 2025 15:59
[2025-08-29 16:52] LABS: INR 1.17 (0.9-1.15); Partial Thromboplastin Time 32.4 SEC (24.5-34.5); Prothrombin Time 12.2 sec (9.3-11.8)
[2025-08-29 21:51] LABS: Hematocrit 27.3 % (36.0-46.0); Hemoglobin 8.9 g/dL (12.2-16.2); Mean Corpuscular Hemoglobin 28.5 pg (28.0-32.0); Mean Corpuscular Volume 87.7 fL (80.0-100.0); Nucleated Red Blood Cells % 0.0 %
[2025-08-30] VITALS (110 sets, daily range): BP systolic 94–143; BP diastolic 22–78; PULSE 62–108; RESP 10–24; TEMP 97.9–98.9; O2SAT 92–99
[2025-08-30 04:24] LABS: Hematocrit 27.8 % (36.0-46.0); Hemoglobin 8.9 g/dL (12.2-16.2); Mean Corpuscular Hemoglobin 28.0 pg (28.0-32.0); Mean Corpuscular Volume 87.7 fL (80.0-100.0); Nucleated Red Blood Cells % 0.1 %
[2025-08-30 04:43] LABS: Alanine Aminotransferase 12 U/L (7-40); Albumin 3.5 g/dL (3.2-4.8); Alkaline Phosphatase 115 U/L (46-116); Anion Gap 12 (5-15); BUN/Creatinine Ratio 23.7 (10.0-20.0); Carbon Dioxide 26 mmol/L (20-31); Chloride 104 mmol/L (98-107); Potassium 4.5 mmol/L (3.5-5.1); Sodium 142 mmol/L (136-145); Total Protein 6.7 g/dL (5.7-8.2)
[2025-08-30 04:53] LABS: Bilirubin, Total 3.5 mg/dL (0.2-1.0); Blood Urea Nitrogen 40 mg/dL (9-23); Calcium 8.5 mg/dL (8.7-10.4); Glucose 125 mg/dL (74-106)
--- NOTE | 2025-08-30 05:17 | DVH ---
CHEST RADIOGRAPH INDICATION: s/p Intubation TECHNIQUE: Single frontal view of the chest was obtained COMPARISON: XY CHEST XRAY 1 VIEW on DOS: 08/29/25 FINDINGS: Lines and Tubes: The endotracheal tube terminates 4.7 cm above the dex. The enteric tube courses below the left hemidiaphragm and the tip extends outside the field of view. Left PICC and right central venous catheter are unchanged. Lungs: Bilateral opacities are similar to prior study. Pleura: No effusion. No pneumothorax. Cardiomediastinal contours: Stable cardiomediastinal silhouette. Bones: No acute osseous abnormality. IMPRESSION: 1. Similar position of the support lines and tubes. 2. No significant change in pulmonary edema and cardiomegaly.
[2025-08-30 08:03] LABS: Base Excess 0.6 mmol/L (-2.0-3.0)
[2025-08-30] MEDS: ALBUMIN 25% 100 ML IV ONE (16:13)
--- NOTE | 2025-08-30 16:17 | DVHPN2 ---
Progress Note Date Seen: Aug 30, 2025 Resident Creating Document: LAURA SEE RESIDENT Has the PT tested + for MRSA If YES, has PT been informed?: No Medical Necessity Reason Pt with a Central, PICC or Fol: Yes The following are medically ne: PICC Line, Abreu Catheter Subjective Review of Systems Patient seen and examined at bedside. Sedated, intubated on mechanical ventilator. today an episode of bloody diarrhea EGD was negative, small hiatal hernia mild gastritis no bleeding Objective vital signs Vital Sign Date Time Temp Pulse Resp B/P (MAP) Pulse Ox O2 Delivery O2 Flow Rate FiO2 08/30/25 16:14 70 22 110/49 (69) 98 30 08/30/25 14:00 Mechanical Ventilator+ 08/30/25 12:00 98.7 98.7 Total Intake and Output 08/29/25 08/29/25 08/30/25 15:00 23:00 07:00 Intake Total 375.995 ml 990.169 ml 488.934 ml Output Total 225 ml 300 ml Balance 375.995 ml 765.169 ml 188.934 ml medications Current Medications Medications Dose Ordered Sig/Erum Route Start Time Stop Time Status Last Admin Dose Admin Albuterol 2.5 mg Q6HPRN PRN NEB 08/15/25 21:45 08/29/25 11:17 2.5 MG Acetaminophen 650 mg Q6HP PRN PO 08/15/25 22:15 Sodium Chloride 10 ml QSHIFT@10,22 IV 08/19/25 22:00 08/30/25 08:40 10 ML Fentanyl Citrate 250 ml @ 2.5 mls/hr Q24H IV 08/19/25 16:45 08/30/25 05:08 10 MLS/HR Norepinephrine Bitartrate 32 mg/ Sodium Chloride 250 ml @ 0.938 mls/ hr Q24H IV 08/19/25 19:45 08/29/25 14:51 0.938 MLS/HR Pantoprazole Sodium 40 mg BID IV 08/22/25 10:00 08/30/25 08:40 40 MG Albumin Human 100 ml @ 100 mls/hr PRN PRN IV 08/22/25 17:00 Vasopressin 20 units/Sodium Chloride 100 ml @ 9 mls/hr Q11H7M IV 08/24/25 18:15 08/25/25 04:49 6 MLS/HR Midodrine 10 mg TID@0600,1200,1800 NG 08/25/25 18:00 08/30/25 12:11 10 MG Sodium Chloride 10 meq/Potassium Chloride 10 meq/ Calcium Gluconate 6.3 meq/Magnesium Sulfate 10 meq/ Multivitamins 10 ml/Potassium Phosphate 20 meq/ Amino Acids/ Dextrose/Purified Water 1,038.0938 ml @ 43 mls/hr Q24H9M IV 08/26/25 22:00 08/27/25 21:59 Cancel Enteral Nutritional Formula 1,000 ml 30ML/HR GT 08/26/25 15:00 08/29/25 04:00 1,000 ML Propofol 100 ml @ 4.404 mls/ hr [id number] IV 08/26/25 21:15 08/30/25 14:00 26.424 MLS/HR Lactulose 30 ml DAILY PO 08/28/25 10:00 08/30/25 09:21 30 ML Iron Sucrose 110 ml @ 110 mls/hr DAILY@1200 IV 08/29/25 12:00 09/02/25 11:59 08/30/25 12:12 110 MLS/HR Meropenem 50 ml @ 17 mls/hr Q12HR IV 08/30/25 22:00 Examination General: Obese, afebrile, palor, mucosae are moist Cardiovascular: Regular S1 and S2. No murmurs, gallops or rubs. No JVD elevation. Bilateral pedal edema. Respiratory: Decreased breath sounds heard on auscultation, intubated Abdomen: Soft, nontender, nondistended, hypoactive bowel sounds, no rebound tenderness, no organomegaly, no masses Genitourinary: Abreu catheter seen Neurological: Pupils are isocoric and reactive laboratory and microbiology Laboratory Tests 08/30/25 03:30 Test 08/30/25 03:30 Range/Units Serum Glucose 125 H 74-106 mg/dL Microbiology Date/Time Source Procedure Growth Status 08/23/25 16:30 Urine - Abreu Port Urine Culture - Final Complete 08/18/25 10:55 Nose MRSA Screen - Final Complete Problem List/Assessment/Plan Problem List/Assessment/Plan Acute blood loss anemia status post 8 RBC transfusions Anemia likely normocytic versus iron-deficiency Ruled out esophageal varices lower GI bleeding, possible ischemic colitis Cirrhosis-unspecified Hepatic encephalopathy Hyperammonemia Acute hypoxic respiratory failure status intubation RUDDY superimposed on CKD requiring hemodialysis E coli ESBL UTI Pancytopenia ? Cirrhosis related on isolation Hyperkalemia Prognosis Plan Continue supportive care IV Protonix 40 mg daily continue IV iron therapy Monitor labs CT scan of the abdomen pelvis: Cirrhosis with stigmata of pulmonary hypertension as detailed. likely source of bleeding can be segmental ischemic colitis we will continue to f/u and will be stand by if colonoscopy is needed, right now the blood in todays BM can be old blood Case discussed with Dr Elena Plan discussed with: Other (rn) CC Plasma Assessment Blood Product Administration S: [id number] LAURA SEE RESIDENT Aug 30, 2025 16:17
[2025-08-30] MEDS: FUROSEMIDE 40 MG/4 ML VIAL IV ONE (16:52)
--- NOTE | 2025-08-30 19:15 | DVHPNRES ---
Progress Note Date Seen: Aug 30, 2025 Resident Creating Document: KLAUDIA LOWE RESIDENT Has the PT tested + for MRSA If YES, has PT been informed?: No Medical Necessity Reason Pt with a Central, PICC or Fol: Yes The following are medically ne: PICC Line, Abreu Catheter Subjective Review of Systems Ms. Worthington is a 65 year old female with past medical history of HFpEF liver cirrhosis, chronic atrial fibrillation, anemia with multiple blood transfusions in the past, and pulmonary hypertension, who presented to [facility] via EMS due shortness of breath. As per her sons, the patient has had progressively worsening bilateral leg edema for the last month associated with worsening shortness of breath for two weeks. They state that she is compliant with her medications, however, every few months they have to take their mom to the hospital for similar symptoms, with most recent hospitalization in late May 2025. She was seen by her home health nurse on Friday (08/15/2025) night, who told the family to call EMS. As per records, on scene she was found to have a saturation of 90% on room air, she placed on 2 L NC with improvement to 92% and brought to the emergency department. On initial evaluation in the ER, she was afebrile, MAP within normal range, saturating adequately on 2L NC. She was found to have anasarca reaching up to her thighs. 12 lead EKG showed atrial fibrillation. Initial labs are significant for pancytopenia, hyperkalemia, BUN 84, creatinine 2.14, BNP 207, troponins negative, and lipase 178. UA is consistent with a UTI. Chest Xray significant for hazy opacities throughout the right lung, and stable cardiomediastinal enlargement. The patient was started on IV Lasix, hyperkalemia protocol, IV antibiotics, and of 1 PRBC and was admitted for further work up and management. The patient was evaluated by nephrology who initially recommended diuresis, albumin and low dose dopamine, and midodrine, however, due to progressively worsening kidney function, dialysis was recommended. On 08/18/2025 patient was found lethargic and disoriented, blood gas showed hypoxic and hypercapnic respiratory failure, she was started on BiPAP and transferred to the ICU. Mentation continued to deteriorate and required intubation for airway protection and respiratory insufficiency. Patient presented two large bloody bowel movements requiring emergent transfusion of 2 PRBCs and vasopressors. She was evaluated by gastroenterology who recommended use of PPI, octreotide, and transfusions as needed with endoscopy when stable. Prior medical history: HFrEF, Liver cirrhosis, Chronic Atrial Fibrillation, Anemia s/p multiple blood transfusions, and pulmonary hypertension Prior surgical history: 3 c-sections Social: Sons deny any previous drug, tobacco, or alcohol use. She recently moved to the area to live with her son, Dalia. 08/29/25: Patient was seen at bedside. Patient is sedated and mechanically ventilated. Son Shashank was present in the bedside on bedside. After overnight patient had bradycardia and soft blood pressure, patient's vitalized somewhat in the morning. She underwent CT Abdomen as per GI recommendations. Eventually, patient was tachycardic, dopamine drip discontinued. Levophed started to maintain BP. Patient also exhibited another episode of bloody bowel movement; H&H remained stable. 08/30/25: Patient was seen at bedside. Patient is sedated and mechanically ventilated. No significant overnight events. Patient had two burgundy red bowel movements yesterday and one today. H&H has remained stable. Discussed trial of CPAP and tapering vasopressor support with aim SBP of above 90 (instead of MAP goals in context of low DBP). Discussed plan and goals of care in detail with patient's son. Objective vital signs Vital Sign Date Time Temp Pulse Resp B/P (MAP) Pulse Ox O2 Delivery O2 Flow Rate FiO2 08/30/25 18:30 65 23 97/38 (57) 96 08/30/25 18:00 30 08/30/25 18:00 Mechanical Ventilator+ 08/30/25 16:00 97.9 97.9 Total Intake and Output 08/29/25 08/29/25 08/30/25 15:00 23:00 07:00 Intake Total 375.995 ml 990.169 ml 488.934 ml Output Total 225 ml 300 ml Balance 375.995 ml 765.169 ml 188.934 ml medications Current Medications Medications Dose Ordered Sig/Erum Route Start Time Stop Time Status Last Admin Dose Admin Albuterol 2.5 mg Q6HPRN PRN NEB 08/15/25 21:45 08/29/25 11:17 2.5 MG Acetaminophen 650 mg Q6HP PRN PO 08/15/25 22:15 Sodium Chloride 10 ml QSHIFT@10,22 IV 08/19/25 22:00 08/30/25 08:40 10 ML Fentanyl Citrate 250 ml @ 2.5 mls/hr Q24H IV 08/19/25 16:45 08/30/25 05:08 10 MLS/HR Norepinephrine Bitartrate 32 mg/ Sodium Chloride 250 ml @ 0.938 mls/ hr Q24H IV 08/19/25 19:45 08/29/25 14:51 0.938 MLS/HR Pantoprazole Sodium 40 mg BID IV 08/22/25 10:00 08/30/25 08:40 40 MG Albumin Human 100 ml @ 100 mls/hr PRN PRN IV 08/22/25 17:00 Vasopressin 20 units/Sodium Chloride 100 ml @ 9 mls/hr Q11H7M IV 08/24/25 18:15 08/25/25 04:49 6 MLS/HR Midodrine 10 mg TID@0600,1200,1800 NG 08/25/25 18:00 08/30/25 18:14 10 MG Sodium Chloride 10 meq/Potassium Chloride 10 meq/ Calcium Gluconate 6.3 meq/Magnesium Sulfate 10 meq/ Multivitamins 10 ml/Potassium Phosphate 20 meq/ Amino Acids/ Dextrose/Purified Water 1,038.0938 ml @ 43 mls/hr Q24H9M IV 08/26/25 22:00 08/27/25 21:59 Cancel Enteral Nutritional Formula 1,000 ml 30ML/HR GT 08/26/25 15:00 08/29/25 04:00 1,000 ML Propofol 100 ml @ 4.404 mls/ hr [id number] IV 08/26/25 21:15 08/30/25 14:00 26.424 MLS/HR Lactulose 30 ml DAILY PO 08/28/25 10:00 08/30/25 09:21 30 ML Iron Sucrose 110 ml @ 110 mls/hr DAILY@1200 IV 08/29/25 12:00 09/02/25 11:59 08/30/25 12:12 110 MLS/HR Meropenem 50 ml @ 17 mls/hr Q12HR IV 08/30/25 22:00 Examination General: Patient sedated, intubated. HEENT: Pupils B/L equal and reactive to light. Normocephalic, atraumatic. Respiratory/pulmonary: B/L breath sounds heard with low pitched wheeze in right lower lung. Cardiovascular: S1, S2 heard w/o murmurs Abdomen: Abdomen nondistended, normal bowel sounds heard. Extremities: Warm bilateral extremities. B/L upper arm ecchymosis. Grade 1 pitting edema in B/L lower limbs. Grade 2 pitting edema in B/L upper extremities extending upto arms. Peripheral Pulses: 3+ Radial (R). 3+ Radial (L). 3+ Dorsalis pedis (R). 3+ Dorsalis pedis(L) Skin: Small partial thickness linear skin tears approximately 0.5X1 cm in abdominal folds, left arm and left lower leg. laboratory and microbiology Laboratory Tests 08/30/25 03:30 Test 08/30/25 03:30 Range/Units Serum Glucose 125 H 74-106 mg/dL Microbiology Date/Time Source Procedure Growth Status 08/23/25 16:30 Urine - Abreu Port Urine Culture - Final Complete 08/18/25 10:55 Nose MRSA Screen - Final Complete Problem List/Assessment/Plan Problem List/Assessment/Plan Neurology # Sedation, Analgesia Propofol 10 mcg/kg/hr Fentanyl 150 mcg/hr # Acute metabolic encephalopathy likely due to hyperammonemia Ammonia levels have normalized. Ordered ammonia levels Cardiovascular # Acute on chronic HFpEF heart failure Likely precipitated by fluid overload and sepsis Echocardiogram: LVEF 50%. mild mitral regurgitation. mild tricuspid regurgitation. mild to moderate pulmonic regurgitation Bumex drip, Furosemide 20 mg IV discontinued Jardiance, Furosemide, and carvedilol held at this time Ordered Furosemide 40 mg IV once before trial of extubation # Chronic Atrial Fibrillation Amiodarone - held due to bradycardia # Severe Pulmonary Hypertension Sildenafil - held Ambrisentan 5 mg - held # Bradycardia Midodrine 10 mg TID Discontinued Dopamine 2 mcg d/t tachycardia Respiratory # Ventilator Intubated (08/19/2025) On [facility] ventilation: AC-VC TV of 450ml, PEEP Of 8 and FiO2 of 30% # Acute hypoxic respiratory failure # Acute hypercapnic respiratory failure S/p intubation Blood gas show normalization of pH, pCO2, pO2 # Pulmonary Edema with bilateral pleural effusions Chest xray: Stable appearing pulmonary edema and small bilateral pleural effusions. # Pneumonia, ruled out Azithromycin discontinued Gastrointestinal # Acute hypovolemic shock likely due to Lower GI Bleed # Segmental ischemic colitis or diverticular disease, possible # Hypoalbuminemia 8 PRBC transfusions, 4 FFPs, 5 Platelet transfusions Stool occult positive, discontinued Sandostatin Protonix 40 mg IV BID Vasopressin (holding off for now) Quadlevo continued Dopamine switched to Levophed d/t Tachycardia; NS 250 cc bolus given Albumin supplementation H&H stable; continue monitoring # Liver cirrhosis likely due to fatty liver disease # Acute metabolic encephalopathy likely due to hyperammonemia MELD score 26 Continue lactulose Monitor ammonia # Cholelithaisis Abdominal US: The gallbladder wall measures 0.3 cm and is normal in size. Gallstones are noted. # 2 cm sliding type hiatal hernia # Mild gastritis EGD 08/26/2025: 1-2 cm sliding-type hiatal hernia with no significant erosive esophagitis, mild gastritis involving the antrum and body of the stomach with some linear gastric erosions GI recommended Protonix 40 mg b.i.d. IV, discontinue IV Sandostatin drip, continue to monitor labs and transfuse if hemoglobin drops below 7, elective colonoscopy once medically stabilized Continue IV iron therapy CT scan of the abdomen pelvis shows liver cirrhosis, splenomegaly. Pulmonary hypertension, B/L LL opacities. Enlargement of the uterus with a lobulated contour and scattered calcifications, possibly referable to fibroids. Genitourinary # Abreu catheter present draining clear urine # Complicated UTI Urine culture: E coli ESBL Meropenem 1 g IV q8 hrs UA shows signs of improved infection UC: No growth after 48 hours Nephrology # RUDDY on CKD likely due to hemodynamically mediated (d/t VMN) Per nephrology, renal function is improving, dialysis is being held at this time. Jose M catheter remain in its place due to thrombocytopenia until patient is more stabilized. # Hyperkalemia, resolved # Hypernatremia Monitor BMP Infectious disease # Possible Septic Shock due to UTI Meropenem 1 g IV BID Urine Culture: E. Coli ESBL Follow up UA shows improvement; Follow up UC shows no growth at 48 hours Vasopressin (holding off for now) Quadlevo continued Hem/onc # Acute hypovolemic shock likely due to Lower GI Bleed Managed w/ 8 PRBC transfusions, 4 FFPs, 5 Platelet transfusions D/c Sandostatin drip Protonix 40 mg IV BID Dopamine switched to Levophed d/t Tachycardia (08/29/25) # Pancytopenia Possibly associated to liver cirrhosis DVT prophylaxis: SCDs Peptic ulcer prophylaxis: Pantoprazole 40 mg IV BID Nutrition: TPN Lines -R PICC line 08/19 -Abreu catheter 08/19 -ET tube: 08/19 -Jose M catheter 08/19 Drips during [facility] ventilation: Propofol 10 mcg/kg/min Fentanyl 150 mcg/hr Vasopressin Quadlevo discontinued Sandostatin discontinued Dopamine discontinued Levophed started (08/29/25) Patient on vasopressin (holding off for now), Levophed. BP goals of SBP> 90. Dopamine discontinued d/t elevated heart rate. Patient is in critical condition, all findings and care plan discussed with her son at bedside. Questions and concerns were thoroughly addressed, prognosis is poor. Critical care time 62 minutes excluding procedure. Code status discussed greater than 20 minutes: Full CODE STATUS. Family at bedside explained about the condition of the patient Plan discussed with Dr. Malin Plan discussed with: Son, Other (nurses) My Orders My Orders Orders - KLAUDIA LOWE Procedure Category Date Status Time Chest Portable XY 08/30/25 Resulted 04:00 Ammonia LAB 08/31/25 Verified 04:00 Chest Portable XY 08/31/25 Logged 04:00 Abg W/ Co-Ox RT 08/31/25 Logged 04:00 Complete Blood Count LAB 08/31/25 Verified 04:00 Comprehensive LAB 08/31/25 Verified Metabolic Panel 04:00 Magnesium LAB 08/31/25 Verified 04:00 CC Plasma Assessment Blood Product Administration S: [id number] Date of Service: Aug 30, 2025 Billing Provider: ALINA GALLO MD Common Visit Codes: 48734-[id number] CARE 30-74 MIN KLAUDIA LOWE Aug 30, 2025 19:15 ALINA GALLO MD Aug 31, 2025 13:57
[2025-08-30] MEDS: MEROPENEM 1GM IVPB 50 ML IV SCH (21:29)
[2025-08-31] VITALS (106 sets, daily range): BP systolic 92–134; BP diastolic 29–62; PULSE 60–102; RESP 9–25; TEMP 97.8–98.2; O2SAT 93–100
[2025-08-31 03:58] LABS: Mean Corpuscular Hemoglobin 29.1 pg (28.0-32.0)
[2025-08-31 04:01] LABS: Hematocrit 24.4 % (36.0-46.0); Hemoglobin 8.3 g/dL (12.2-16.2); Mean Corpuscular Volume 85.8 fL (80.0-100.0); Nucleated Red Blood Cells % 0.1 %
[2025-08-31 04:31] LABS: Alanine Aminotransferase 10 U/L (7-40); Albumin 3.3 g/dL (3.2-4.8); Alkaline Phosphatase 90 U/L (46-116); Anion Gap 10 (5-15); BUN/Creatinine Ratio 26.5 (10.0-20.0); Carbon Dioxide 28 mmol/L (20-31); Chloride 105 mmol/L (98-107); Glucose 99 mg/dL (74-106); Magnesium 2.2 mg/dL (1.6-2.6); Potassium 3.9 mmol/L (3.5-5.1); Sodium 143 mmol/L (136-145); Total Protein 6.3 g/dL (5.7-8.2)
[2025-08-31 04:48] LABS: Bilirubin, Total 1.8 mg/dL (0.2-1.0); Blood Urea Nitrogen 39 mg/dL (9-23); Calcium 8.6 mg/dL (8.7-10.4)
--- NOTE | 2025-08-31 05:01 | DVH ---
CHEST RADIOGRAPH Indication: Intubated pt Technique: Single frontal view of the chest was obtained COMPARISON: XY CHEST PORTABLE on DOS: 08/30/25, XY CHEST XRAY 1 VIEW on DOS: 08/29/25, XY CHEST XRAY 1 VIEW on DOS: 08/28/25, XY CHEST XRAY 1 VIEW on DOS: 08/27/25, XY CHEST PORTABLE on DOS: 08/26/25 FINDINGS: Lines and Tubes: Endotracheal tube, right and left central catheter is in satisfactory position. Lungs: Unchanged pulmonary edema Pleura: No effusion. No pneumothorax. Cardiomediastinal contours: Cardiomegaly. Bones: Unremarkable IMPRESSION: Unchanged pulmonary edema.
[2025-08-31 07:19] LABS: Base Excess 1.2 mmol/L (-2.0-3.0)
--- NOTE | 2025-08-31 14:31 | DVHPN2 ---
Progress Note Date Seen: Aug 31, 2025 Resident Creating Document: LAURA SEE RESIDENT Has the PT tested + for MRSA If YES, has PT been informed?: No Medical Necessity Reason Pt with a Central, PICC or Fol: Yes The following are medically ne: PICC Line, Abreu Catheter Subjective Review of Systems Patient seen and examined at bedside. Sedated, intubated on mechanical ventilator. 2 episodes of bloody diarrhea EGD was negative, small hiatal hernia mild gastritis no bleeding Objective vital signs Vital Sign Date Time Temp Pulse Resp B/P (MAP) Pulse Ox O2 Delivery O2 Flow Rate FiO2 08/31/25 14:24 62 22 121/41 (67) 97 30 08/31/25 14:00 Mechanical Ventilator+ 08/31/25 12:00 97.9 97.9 Total Intake and Output 08/30/25 08/30/25 08/31/25 15:00 23:00 07:00 Intake Total 281.532 ml 602.464 ml 609.187 ml Output Total 500 ml 700 ml Balance 281.532 ml 102.464 ml -90.813 ml medications Current Medications Medications Dose Ordered Sig/Erum Route Start Time Stop Time Status Last Admin Dose Admin Albuterol 2.5 mg Q6HPRN PRN NEB 08/15/25 21:45 08/29/25 11:17 2.5 MG Acetaminophen 650 mg Q6HP PRN PO 08/15/25 22:15 Sodium Chloride 10 ml QSHIFT@10,22 IV 08/19/25 22:00 08/31/25 10:38 10 ML Fentanyl Citrate 250 ml @ 2.5 mls/hr Q24H IV 08/19/25 16:45 08/31/25 01:42 10 MLS/HR Norepinephrine Bitartrate 32 mg/ Sodium Chloride 250 ml @ 0.938 mls/ hr Q24H IV 08/19/25 19:45 08/29/25 14:51 0.938 MLS/HR Pantoprazole Sodium 40 mg BID IV 08/22/25 10:00 08/31/25 10:37 40 MG Albumin Human 100 ml @ 100 mls/hr PRN PRN IV 08/22/25 17:00 Vasopressin 20 units/Sodium Chloride 100 ml @ 9 mls/hr Q11H7M IV 08/24/25 18:15 08/25/25 04:49 6 MLS/HR Midodrine 10 mg TID@0600,1200,1800 NG 08/25/25 18:00 08/31/25 12:26 10 MG Sodium Chloride 10 meq/Potassium Chloride 10 meq/ Calcium Gluconate 6.3 meq/Magnesium Sulfate 10 meq/ Multivitamins 10 ml/Potassium Phosphate 20 meq/ Amino Acids/ Dextrose/Purified Water 1,038.0938 ml @ 43 mls/hr Q24H9M IV 08/26/25 22:00 08/27/25 21:59 Cancel Enteral Nutritional Formula 1,000 ml 30ML/HR GT 08/26/25 15:00 08/31/25 02:43 1,000 ML Propofol 100 ml @ 4.404 mls/ hr [id number] IV 08/26/25 21:15 08/31/25 13:44 17.616 MLS/HR Lactulose 30 ml DAILY PO 08/28/25 10:00 08/30/25 09:21 30 ML Iron Sucrose 110 ml @ 110 mls/hr DAILY@1200 IV 08/29/25 12:00 09/02/25 11:59 08/31/25 12:26 110 MLS/HR Meropenem 50 ml @ 17 mls/hr Q12HR IV 08/30/25 22:00 08/31/25 10:00 17 MLS/HR Albumin Human 50 ml @ 100 mls/hr Q8H IV 08/31/25 13:45 09/01/25 06:14 Furosemide 40 mg BIDD IV 08/31/25 18:00 Examination General: Obese, afebrile, palor, mucosae are moist Cardiovascular: Regular S1 and S2. No murmurs, gallops or rubs. No JVD elevation. Bilateral pedal edema. Respiratory: Decreased breath sounds heard on auscultation, intubated Abdomen: Soft, nontender, nondistended, hypoactive bowel sounds, no rebound tenderness, no organomegaly, no masses Genitourinary: Abreu catheter seen Neurological: Pupils are isocoric and reactive laboratory and microbiology Laboratory Tests 08/31/25 03:12 Test 08/31/25 03:12 Range/Units Serum Glucose 99 74-106 mg/dL Microbiology Date/Time Source Procedure Growth Status 08/23/25 16:30 Urine - Abreu Port Urine Culture - Final Complete 08/18/25 10:55 Nose MRSA Screen - Final Complete Problem List/Assessment/Plan Problem List/Assessment/Plan Acute blood loss anemia status post 8 RBC transfusions Anemia likely normocytic versus iron-deficiency Ruled out esophageal varices lower GI bleeding, possible ischemic colitis Cirrhosis-unspecified Hepatic encephalopathy Hyperammonemia Acute hypoxic respiratory failure status intubation RUDDY superimposed on CKD requiring hemodialysis E coli ESBL UTI Pancytopenia ? Cirrhosis related on isolation Hyperkalemia Prognosis Plan Continue supportive care IV Protonix 40 mg daily continue IV iron therapy Monitor labs CT scan of the abdomen pelvis: Cirrhosis with stigmata of pulmonary hypertension as detailed. likely source of bleeding can be segmental ischemic colitis we will continue to f/u, probably colonoscopy on friday Case discussed with Dr Elena Plan discussed with: Other (rn) CC Plasma Assessment Blood Product Administration S: [id number] LAURA SEE RESIDENT Aug 31, 2025 14:31
[2025-08-31] MEDS: ALBUMIN 25% 50 ML IV SCH (15:14)
[2025-08-31] MEDS: FUROSEMIDE 40 MG/4 ML VIAL IV ONE (15:15)
--- NOTE | 2025-08-31 16:47 | DVHPNRES ---
Progress Note Date Seen: Aug 31, 2025 Resident Creating Document: KLAUDIA LOWE RESIDENT Has the PT tested + for MRSA If YES, has PT been informed?: No Medical Necessity Reason Pt with a Central, PICC or Fol: Yes The following are medically ne: PICC Line, Abreu Catheter Subjective Review of Systems Ms. Worthington is a 65 year old female with past medical history of HFpEF liver cirrhosis, chronic atrial fibrillation, anemia with multiple blood transfusions in the past, and pulmonary hypertension, who presented to [facility] via EMS due shortness of breath. As per her sons, the patient has had progressively worsening bilateral leg edema for the last month associated with worsening shortness of breath for two weeks. They state that she is compliant with her medications, however, every few months they have to take their mom to the hospital for similar symptoms, with most recent hospitalization in late May 2025. She was seen by her home health nurse on Friday (08/15/2025) night, who told the family to call EMS. As per records, on scene she was found to have a saturation of 90% on room air, she placed on 2 L NC with improvement to 92% and brought to the emergency department. On initial evaluation in the ER, she was afebrile, MAP within normal range, saturating adequately on 2L NC. She was found to have anasarca reaching up to her thighs. 12 lead EKG showed atrial fibrillation. Initial labs are significant for pancytopenia, hyperkalemia, BUN 84, creatinine 2.14, BNP 207, troponins negative, and lipase 178. UA is consistent with a UTI. Chest Xray significant for hazy opacities throughout the right lung, and stable cardiomediastinal enlargement. The patient was started on IV Lasix, hyperkalemia protocol, IV antibiotics, and of 1 PRBC and was admitted for further work up and management. The patient was evaluated by nephrology who initially recommended diuresis, albumin and low dose dopamine, and midodrine, however, due to progressively worsening kidney function, dialysis was recommended. On 08/18/2025 patient was found lethargic and disoriented, blood gas showed hypoxic and hypercapnic respiratory failure, she was started on BiPAP and transferred to the ICU. Mentation continued to deteriorate and required intubation for airway protection and respiratory insufficiency. Patient presented two large bloody bowel movements requiring emergent transfusion of 2 PRBCs and vasopressors. She was evaluated by gastroenterology who recommended use of PPI, octreotide, and transfusions as needed with endoscopy when stable. Prior medical history: HFrEF, Liver cirrhosis, Chronic Atrial Fibrillation, Anemia s/p multiple blood transfusions, and pulmonary hypertension Prior surgical history: 3 c-sections Social: Sons deny any previous drug, tobacco, or alcohol use. She recently moved to the area to live with her son, Dalia. 08/29/25: Patient was seen at bedside. Patient is sedated and mechanically ventilated. Son Shashank was present in the bedside on bedside. After overnight patient had bradycardia and soft blood pressure, patient's vitalized somewhat in the morning. She underwent CT Abdomen as per GI recommendations. Eventually, patient was tachycardic, dopamine drip discontinued. Levophed started to maintain BP. Patient also exhibited another episode of bloody bowel movement; H&H remained stable. 08/30/25: Patient was seen at bedside. Patient is sedated and mechanically ventilated. No significant overnight events. Patient had two burgundy red bowel movements yesterday and one today. H&H has remained stable. Discussed trial of CPAP and tapering vasopressor support with aim SBP of above 90 (instead of MAP goals in context of low DBP). Discussed plan and goals of care in detail with patient's son. 08/31/2025; patient was seen at bedside today. Patient is sedated and mechanically ventilated. Two large dark red loose bowel movements last night, holding off lactulose. Her H&H has remained stable. Patient's chemistry showed creatinine and BUN elevated with elevated BUN to creatinine ratio. Ammonia and T bilirubin has normalized. Patient's I&O shows positive balance, we will increase Lasix dose to 40 mg IV b.i.d. along with albumin supplementation. Trial to wean off sedation and CPAP tomorrow. Discussed going down on propofol and starting Precedex. Objective vital signs Vital Sign Date Time Temp Pulse Resp B/P (MAP) Pulse Ox O2 Delivery O2 Flow Rate FiO2 08/31/25 16:28 88 22 95/29 (51) 94 30 08/31/25 16:00 Mechanical Ventilator+ 08/31/25 12:00 97.9 97.9 Total Intake and Output 08/30/25 08/30/25 08/31/25 15:00 23:00 07:00 Intake Total 281.532 ml 602.464 ml 609.187 ml Output Total 500 ml 700 ml Balance 281.532 ml 102.464 ml -90.813 ml medications Current Medications Medications Dose Ordered Sig/Erum Route Start Time Stop Time Status Last Admin Dose Admin Albuterol 2.5 mg Q6HPRN PRN NEB 08/15/25 21:45 08/29/25 11:17 2.5 MG Acetaminophen 650 mg Q6HP PRN PO 08/15/25 22:15 Sodium Chloride 10 ml QSHIFT@10,22 IV 08/19/25 22:00 08/31/25 10:38 10 ML Fentanyl Citrate 250 ml @ 2.5 mls/hr Q24H IV 08/19/25 16:45 08/31/25 01:42 10 MLS/HR Norepinephrine Bitartrate 32 mg/ Sodium Chloride 250 ml @ 0.938 mls/ hr Q24H IV 08/19/25 19:45 08/29/25 14:51 0.938 MLS/HR Pantoprazole Sodium 40 mg BID IV 08/22/25 10:00 08/31/25 10:37 40 MG Albumin Human 100 ml @ 100 mls/hr PRN PRN IV 08/22/25 17:00 Vasopressin 20 units/Sodium Chloride 100 ml @ 9 mls/hr Q11H7M IV 08/24/25 18:15 08/25/25 04:49 6 MLS/HR Midodrine 10 mg TID@0600,1200,1800 NG 08/25/25 18:00 08/31/25 12:26 10 MG Sodium Chloride 10 meq/Potassium Chloride 10 meq/ Calcium Gluconate 6.3 meq/Magnesium Sulfate 10 meq/ Multivitamins 10 ml/Potassium Phosphate 20 meq/ Amino Acids/ Dextrose/Purified Water 1,038.0938 ml @ 43 mls/hr Q24H9M IV 08/26/25 22:00 08/27/25 21:59 Cancel Enteral Nutritional Formula 1,000 ml 30ML/HR GT 08/26/25 15:00 08/31/25 02:43 1,000 ML Propofol 100 ml @ 4.404 mls/ hr [id number] IV 08/26/25 21:15 08/31/25 13:44 17.616 MLS/HR Lactulose 30 ml DAILY PO 08/28/25 10:00 08/30/25 09:21 30 ML Iron Sucrose 110 ml @ 110 mls/hr DAILY@1200 IV 08/29/25 12:00 09/02/25 11:59 08/31/25 12:26 110 MLS/HR Meropenem 50 ml @ 17 mls/hr Q12HR IV 08/30/25 22:00 08/31/25 10:00 17 MLS/HR Albumin Human 50 ml @ 100 mls/hr Q8H IV 08/31/25 13:45 09/01/25 06:14 08/31/25 15:14 100 MLS/HR Furosemide 40 mg BIDD IV 08/31/25 18:00 Examination General: Patient sedated, intubated. HEENT: Pupils B/L equal and reactive to light. Normocephalic, atraumatic. Respiratory/pulmonary: B/L breath sounds heard. Cardiovascular: Irregular heart rate Abdomen: Abdomen nondistended, normal bowel sounds heard. Extremities: Warm bilateral extremities. B/L upper arm ecchymosis. Grade 2 pitting edema in B/L lower limbs (up to knees). Grade 3 pitting edema in B/L upper extremities extending upto arms. Peripheral Pulses: 3+ Radial (R). 3+ Radial (L). 3+ Dorsalis pedis (R). 3+ Dorsalis pedis(L) Skin: Small partial thickness linear skin tears approximately 0.5X1 cm in abdominal folds, left arm and left lower leg. laboratory and microbiology Laboratory Tests 08/31/25 03:12 Test 08/31/25 03:12 Range/Units Serum Glucose 99 74-106 mg/dL Microbiology Date/Time Source Procedure Growth Status 08/23/25 16:30 Urine - Abreu Port Urine Culture - Final Complete 08/18/25 10:55 Nose MRSA Screen - Final Complete Problem List/Assessment/Plan Problem List/Assessment/Plan Neurology # Sedation, Analgesia Propofol 10 mcg/kg/hr Fentanyl 150 mcg/hr Trial to wean off sedation, titer down propofol, ordered Precedex # Acute metabolic encephalopathy likely due to hyperammonemia Ammonia levels have normalized. Cardiovascular # Acute on chronic HFpEF heart failure Likely precipitated by fluid overload and sepsis Echocardiogram: LVEF 50%. mild mitral regurgitation. mild tricuspid regurgitation. mild to moderate pulmonic regurgitation Bumex drip, Furosemide 20 mg IV discontinued Jardiance, Furosemide, and carvedilol held at this time Positive balance I&O with Furosemide 40 mg IV once; Increase dose to 40 mg IV b.i.d. # Chronic Atrial Fibrillation Amiodarone - held due to bradycardia # Severe Pulmonary Hypertension Sildenafil held Ambrisentan 5 mg held # Bradycardia Midodrine 10 mg TID Discontinued Dopamine 2 mcg d/t tachycardia Respiratory # Ventilator Intubated (08/19/2025) On [facility] ventilation: AC-VC TV of 450ml, PEEP Of 8 and FiO2 of 30% # Acute hypoxic respiratory failure # Acute hypercapnic respiratory failure S/p intubation Blood gas show normalization of pH, pCO2, pO2 Possible CPAP trial tomorrow # Pulmonary Edema with bilateral pleural effusions Chest xray: Stable appearing pulmonary edema and small bilateral pleural effusions. # Pneumonia, ruled out Azithromycin discontinued Gastrointestinal # Acute hypovolemic shock likely due to Lower GI Bleed # Segmental ischemic colitis or diverticular disease, possible # Hypoalbuminemia 8 PRBC transfusions, 4 FFPs, 5 Platelet transfusions Stool occult positive, discontinued Sandostatin Protonix 40 mg IV BID Vasopressin (holding off for now) Quadlevo continued Dopamine switched to Levophed d/t Tachycardia; NS 250 cc bolus given Albumin supplementation H&H stable; continue monitoring # Liver cirrhosis likely due to fatty liver disease # Acute metabolic encephalopathy likely due to hyperammonemia MELD score 26 Continue lactulose Monitor ammonia # Cholelithaisis Abdominal US: The gallbladder wall measures 0.3 cm and is normal in size. Gallstones are noted. # 2 cm sliding type hiatal hernia # Mild gastritis EGD 08/26/2025: 1-2 cm sliding-type hiatal hernia with no significant erosive esophagitis, mild gastritis involving the antrum and body of the stomach with some linear gastric erosions GI recommended Protonix 40 mg b.i.d. IV, discontinue IV Sandostatin drip, continue to monitor labs and transfuse if hemoglobin drops below 7, elective colonoscopy once medically stabilized Continue IV iron therapy CT scan of the abdomen pelvis shows liver cirrhosis, splenomegaly. Pulmonary hypertension, B/L LL opacities. Enlargement of the uterus with a lobulated contour and scattered calcifications, possibly referable to fibroids. Genitourinary # Abreu catheter present draining clear urine # Complicated UTI Urine culture: E coli ESBL Meropenem 1 g IV q8 hrs UA shows signs of improved infection UC: No growth after 48 hours Nephrology # RUDDY on CKD likely due to hemodynamically mediated (d/t VMN) Per nephrology, renal function is improving, dialysis is being held at this time. Jose M catheter remain in its place due to thrombocytopenia until patient is more stabilized. # Hyperkalemia, resolved # Hypernatremia Monitor BMP Infectious disease # Possible Septic Shock due to UTI Meropenem 1 g IV BID Urine Culture: E. Coli ESBL Follow up UA shows improvement; Follow up UC shows no growth at 48 hours Vasopressin (holding off for now) Quadlevo continued Hem/onc # Acute hypovolemic shock likely due to Lower GI Bleed Managed w/ 8 PRBC transfusions, 4 FFPs, 5 Platelet transfusions D/c Sandostatin drip Protonix 40 mg IV BID Dopamine switched to Levophed d/t Tachycardia (08/29/25) # Pancytopenia Possibly associated to liver cirrhosis DVT prophylaxis: SCDs Peptic ulcer prophylaxis: Pantoprazole 40 mg IV BID Nutrition: TPN Lines -R PICC line 08/19 -Abreu catheter 08/19 -ET tube: 08/19 -Jose M catheter 08[facility]: Propofol 10 mcg/kg/min Fentanyl 150 mcg/hr Vasopressin Quadlevo discontinued Sandostatin discontinued Dopamine discontinued Levophed started (08/29/25) Patient on vasopressin (holding off for now), Levophed. BP goals of SBP> 90. Dopamine discontinued d/t elevated heart rate. Patient is in critical condition, all findings and care plan discussed with her son at bedside. Questions and concerns were thoroughly addressed, prognosis is poor. Critical care time 81 minutes excluding procedure. Code status discussed greater than 20 minutes: Full CODE STATUS. Family at bedside explained about the condition of the patient. Goals of care discussed with son on bedside. Plan discussed with Dr. Malin Plan discussed with: Son My Orders My Orders Orders - KLAUDIA LOWE RESIDENT Procedure Category Date Status Time Precedex Drip Rass 0 PHA 08/31/25 Transmitted 16:45 Complete Blood Count LAB 09/01/25 Verified 04:00 Comprehensive LAB 09/01/25 Verified Metabolic Panel 04:00 Abg W/ Co-Ox RT 09/01/25 Transmitted 04:00 Chest Portable XY 09/01/25 Transmitted 04:00 CC Plasma Assessment Blood Product Administration S: [id number] Date of Service: Aug 31, 2025 Billing Provider: ALINA GALLO MD Common Visit Codes: 45737-XRYLBWLJ CARE 30-74 MIN, 43990-MMXSRCKT CARE-EACH +30MIN KLAUDIA LOWE RESIDENT Aug 31, 2025 16:47 ALINA GALLO MD Sep 01, 2025 11:44
[2025-08-31] MEDS: FUROSEMIDE 40 MG/4 ML VIAL IV SCH (18:21)
[2025-08-31] MEDS: MEROPENEM 1GM IVPB 50 ML IV SCH (18:23)
[2025-08-31] MEDS: DEXMEDETOMIDINE HCL IN D5W 100 ML IV SCH (20:05)
[2025-09-01] VITALS (105 sets, daily range): BP systolic 87–152; BP diastolic 33–85; PULSE 55–96; RESP 16–25; TEMP 96.9–99.1; O2SAT 96–100
[2025-09-01 03:44] LABS: Hematocrit 25.2 % (36.0-46.0); Hemoglobin 8.4 g/dL (12.2-16.2); Mean Corpuscular Hemoglobin 29.1 pg (28.0-32.0); Mean Corpuscular Volume 87.5 fL (80.0-100.0); Nucleated Red Blood Cells % 0.1 %
[2025-09-01 03:53] LABS: Alkaline Phosphatase 91 U/L (46-116); Anion Gap 9 (5-15); BUN/Creatinine Ratio 30.1 (10.0-20.0); Calcium 8.8 mg/dL (8.7-10.4); Carbon Dioxide 29 mmol/L (20-31); Chloride 105 mmol/L (98-107); Glucose 95 mg/dL (74-106); Potassium 3.7 mmol/L (3.5-5.1); Sodium 143 mmol/L (136-145); Total Protein 6.5 g/dL (5.7-8.2)
[2025-09-01 03:54] LABS: Albumin 3.4 g/dL (3.2-4.8)
[2025-09-01 04:02] LABS: Alanine Aminotransferase < 9 U/L (7-40); Bilirubin, Total 1.6 mg/dL (0.2-1.0); Blood Urea Nitrogen 40 mg/dL (9-23)
[2025-09-01 06:19] LABS: Base Excess 1.1 mmol/L (-2.0-3.0)
--- NOTE | 2025-09-01 06:22 | DVH ---
CHEST RADIOGRAPH INDICATION: Intubation TECHNIQUE: Single frontal view of the chest was obtained COMPARISON: XY CHEST PORTABLE on DOS: 08/31/25, XY CHEST PORTABLE on DOS: 08/30/25, XY CHEST XRAY 1 VIEW on DOS: 08/29/25, XY CHEST XRAY 1 VIEW on DOS: 08/28/25, XY CHEST XRAY 1 VIEW on DOS: 08/27/25 FINDINGS: Lines and Tubes: Unchanged. Lungs: Progressive right hemithoracic opacification secondary to increasing pleural effusion and/or developing pulmonary airspace disease. No pneumothorax. Cardiomediastinal contours: Cardiomegaly. Bones: Unremarkable IMPRESSION: 1. Progressive right hemithoracic opacification secondary to increasing pleural effusion and/or developing pulmonary airspace disease. 2. Cardiomegaly. 3. Lines and tubes unchanged.
--- NOTE | 2025-09-01 10:48 | DVHPN2 ---
Progress Note Date Seen: Sep 01, 2025 Resident Creating Document: LAURA SEE RESIDENT Has the PT tested + for MRSA If YES, has PT been informed?: No Medical Necessity Reason Pt with a Central, PICC or Fol: Yes The following are medically ne: PICC Line, Abreu Catheter Subjective Review of Systems Patient seen and examined at bedside. Sedated, intubated on mechanical ventilator. EGD was negative, small hiatal hernia mild gastritis no bleeding Objective vital signs Vital Sign Date Time Temp Pulse Resp B/P (MAP) Pulse Ox O2 Delivery O2 Flow Rate FiO2 09/01/25 09:34 65 22 142/61 (88) 99 30 09/01/25 08:00 Mechanical Ventilator+ 09/01/25 04:00 97.9 97.9 Total Intake and Output 08/31/25 08/31/25 09/01/25 15:00 23:00 07:00 Intake Total 215.928 ml 701.243 ml 487.794 ml Output Total 725 ml 1600 ml Balance 215.928 ml -23.757 ml -1112.206 ml medications Current Medications Medications Dose Ordered Sig/Erum Route Start Time Stop Time Status Last Admin Dose Admin Albuterol 2.5 mg Q6HPRN PRN NEB 08/15/25 21:45 08/29/25 11:17 2.5 MG Acetaminophen 650 mg Q6HP PRN PO 08/15/25 22:15 Sodium Chloride 10 ml QSHIFT@10,22 IV 08/19/25 22:00 09/01/25 09:40 10 ML Fentanyl Citrate 250 ml @ 2.5 mls/hr Q24H IV 08/19/25 16:45 09/01/25 03:29 7.5 MLS/HR Norepinephrine Bitartrate 32 mg/ Sodium Chloride 250 ml @ 0.938 mls/ hr Q24H IV 08/19/25 19:45 09/01/25 02:43 1.875 MLS/HR Pantoprazole Sodium 40 mg BID IV 08/22/25 10:00 09/01/25 09:42 40 MG Albumin Human 100 ml @ 100 mls/hr PRN PRN IV 08/22/25 17:00 Vasopressin 20 units/Sodium Chloride 100 ml @ 9 mls/hr Q11H7M IV 08/24/25 18:15 08/25/25 04:49 6 MLS/HR Midodrine 10 mg TID@0600,1200,1800 NG 08/25/25 18:00 09/01/25 05:31 10 MG Sodium Chloride 10 meq/Potassium Chloride 10 meq/ Calcium Gluconate 6.3 meq/Magnesium Sulfate 10 meq/ Multivitamins 10 ml/Potassium Phosphate 20 meq/ Amino Acids/ Dextrose/Purified Water 1,038.0938 ml @ 43 mls/hr Q24H9M IV 08/26/25 22:00 08/27/25 21:59 Cancel Enteral Nutritional Formula 1,000 ml 30ML/HR GT 08/26/25 15:00 09/01/25 01:39 1,000 ML Propofol 100 ml @ 4.404 mls/ hr [id number] IV 08/26/25 21:15 09/01/25 05:03 8.808 MLS/HR Lactulose 30 ml DAILY PO 08/28/25 10:00 09/01/25 09:40 30 ML Iron Sucrose 110 ml @ 110 mls/hr DAILY@1200 IV 08/29/25 12:00 09/02/25 11:59 08/31/25 12:26 110 MLS/HR Furosemide 40 mg BIDD IV 08/31/25 18:00 09/01/25 05:31 40 MG Meropenem 50 ml @ 17 mls/hr Q8H IV 08/31/25 18:00 09/01/25 09:40 17 MLS/HR Examination General: Obese, afebrile, palor, mucosae are moist Cardiovascular: Regular S1 and S2. No murmurs, gallops or rubs. No JVD elevation. Bilateral pedal edema. Respiratory: Decreased breath sounds heard on auscultation, intubated Abdomen: Soft, nontender, nondistended, hypoactive bowel sounds, no rebound tenderness, no organomegaly, no masses Genitourinary: Abreu catheter seen Neurological: Pupils are isocoric and reactive laboratory and microbiology Laboratory Tests 09/01/25 03:01 Test 09/01/25 03:01 Range/Units Serum Glucose 95 74-106 mg/dL Microbiology Date/Time Source Procedure Growth Status 08/23/25 16:30 Urine - Abreu Port Urine Culture - Final Complete 08/18/25 10:55 Nose MRSA Screen - Final Complete Problem List/Assessment/Plan Problem List/Assessment/Plan Acute blood loss anemia status post 8 RBC transfusions Anemia likely normocytic versus iron-deficiency Ruled out esophageal varices lower GI bleeding, possible ischemic colitis Cirrhosis-unspecified Hepatic encephalopathy Hyperammonemia Acute hypoxic respiratory failure status intubation RUDDY superimposed on CKD requiring hemodialysis E coli ESBL UTI Pancytopenia ? Cirrhosis related on isolation Hyperkalemia Prognosis Plan Continue supportive care IV Protonix 40 mg daily continue IV iron therapy Monitor labs CT scan of the abdomen pelvis: Cirrhosis with stigmata of pulmonary hypertension as detailed. likely source of bleeding can be segmental ischemic colitis Please place rectal tube start colonoscopy preparation, colonoscopy will be done tomorrow Case discussed with Dr Elena Plan discussed with: Other (rn) CC Plasma Assessment Blood Product Administration S: [id number] LAURA SEE RESIDENT Sep 01, 2025 10:48
--- NOTE | 2025-09-01 12:56 | DVHPNRES ---
Progress Note Date Seen: Sep 01, 2025 Resident Creating Document: KLAUDIA LOWE RESIDENT Has the PT tested + for MRSA If YES, has PT been informed?: No Medical Necessity Reason Pt with a Central, PICC or Fol: Yes The following are medically ne: PICC Line, Abreu Catheter Subjective Review of Systems Ms. Worthington is a 65 year old female with past medical history of HFpEF liver cirrhosis, chronic atrial fibrillation, anemia with multiple blood transfusions in the past, and pulmonary hypertension, who presented to [facility] via EMS due shortness of breath. As per her sons, the patient has had progressively worsening bilateral leg edema for the last month associated with worsening shortness of breath for two weeks. They state that she is compliant with her medications, however, every few months they have to take their mom to the hospital for similar symptoms, with most recent hospitalization in late May 2025. She was seen by her home health nurse on Friday (08/15/2025) night, who told the family to call EMS. As per records, on scene she was found to have a saturation of 90% on room air, she placed on 2 L NC with improvement to 92% and brought to the emergency department. On initial evaluation in the ER, she was afebrile, MAP within normal range, saturating adequately on 2L NC. She was found to have anasarca reaching up to her thighs. 12 lead EKG showed atrial fibrillation. Initial labs are significant for pancytopenia, hyperkalemia, BUN 84, creatinine 2.14, BNP 207, troponins negative, and lipase 178. UA is consistent with a UTI. Chest Xray significant for hazy opacities throughout the right lung, and stable cardiomediastinal enlargement. The patient was started on IV Lasix, hyperkalemia protocol, IV antibiotics, and of 1 PRBC and was admitted for further work up and management. The patient was evaluated by nephrology who initially recommended diuresis, albumin and low dose dopamine, and midodrine, however, due to progressively worsening kidney function, dialysis was recommended. On 08/18/2025 patient was found lethargic and disoriented, blood gas showed hypoxic and hypercapnic respiratory failure, she was started on BiPAP and transferred to the ICU. Mentation continued to deteriorate and required intubation for airway protection and respiratory insufficiency. Patient presented two large bloody bowel movements requiring emergent transfusion of 2 PRBCs and vasopressors. She was evaluated by gastroenterology who recommended use of PPI, octreotide, and transfusions as needed with endoscopy when stable. Prior medical history: HFrEF, Liver cirrhosis, Chronic Atrial Fibrillation, Anemia s/p multiple blood transfusions, and pulmonary hypertension Prior surgical history: 3 c-sections Social: Sons deny any previous drug, tobacco, or alcohol use. She recently moved to the area to live with her son, Dalia. 08/29/25: Patient was seen at bedside. Patient is sedated and mechanically ventilated. Son Shashank was present in the bedside on bedside. After overnight patient had bradycardia and soft blood pressure, patient's vitalized somewhat in the morning. She underwent CT Abdomen as per GI recommendations. Eventually, patient was tachycardic, dopamine drip discontinued. Levophed started to maintain BP. Patient also exhibited another episode of bloody bowel movement; H&H remained stable. 08/30/25: Patient was seen at bedside. Patient is sedated and mechanically ventilated. No significant overnight events. Patient had two burgundy red bowel movements yesterday and one today. H&H has remained stable. Discussed trial of CPAP and tapering vasopressor support with aim SBP of above 90 (instead of MAP goals in context of low DBP). Discussed plan and goals of care in detail with patient's son. 08/31/2025: Patient was seen at bedside. Patient is sedated and mechanically ventilated. Two large dark red loose bowel movements last night, holding off lactulose. Her H&H has remained stable. Patient's chemistry showed creatinine and BUN elevated with elevated BUN to creatinine ratio. Ammonia and T bilirubin has normalized. Patient's I&O shows positive balance, we will increase Lasix dose to 40 mg IV b.i.d. along with albumin supplementation. Trial to wean off sedation and CPAP tomorrow. Discussed going down on propofol and starting Precedex. 09/01/25: Patient was seen at bedside. Patient is sedated and mechanically ventilated. Yesterday PEEP reduced from 7 to 5. GI recommended bedside colonoscopy with bowel prep with rectal tube. Can consider adding propofol for sedation. CXR show increased right hemithorax pleural opacification. Closely monitoring I&O with IV lasix, trial of CPAP. Objective vital signs Vital Sign Date Time Temp Pulse Resp B/P (MAP) Pulse Ox O2 Delivery O2 Flow Rate FiO2 09/01/25 11:30 84 22 145/77 (99) 99 09/01/25 11:15 30 09/01/25 10:00 Mechanical Ventilator+ 09/01/25 07:30 96.9 96.9 Total Intake and Output 08/31/25 08/31/25 09/01/25 15:00 23:00 07:00 Intake Total 215.928 ml 701.243 ml 487.794 ml Output Total 725 ml 1600 ml Balance 215.928 ml -23.757 ml -1112.206 ml medications Current Medications Medications Dose Ordered Sig/Erum Route Start Time Stop Time Status Last Admin Dose Admin Albuterol 2.5 mg Q6HPRN PRN NEB 08/15/25 21:45 08/29/25 11:17 2.5 MG Acetaminophen 650 mg Q6HP PRN PO 08/15/25 22:15 Sodium Chloride 10 ml QSHIFT@10,22 IV 08/19/25 22:00 09/01/25 09:40 10 ML Fentanyl Citrate 250 ml @ 2.5 mls/hr Q24H IV 08/19/25 16:45 09/01/25 03:29 7.5 MLS/HR Norepinephrine Bitartrate 32 mg/ Sodium Chloride 250 ml @ 0.938 mls/ hr Q24H IV 08/19/25 19:45 09/01/25 02:43 1.875 MLS/HR Pantoprazole Sodium 40 mg BID IV 08/22/25 10:00 09/01/25 09:42 40 MG Albumin Human 100 ml @ 100 mls/hr PRN PRN IV 08/22/25 17:00 Vasopressin 20 units/Sodium Chloride 100 ml @ 9 mls/hr Q11H7M IV 08/24/25 18:15 08/25/25 04:49 6 MLS/HR Midodrine 10 mg TID@0600,1200,1800 NG 08/25/25 18:00 09/01/25 05:31 10 MG Sodium Chloride 10 meq/Potassium Chloride 10 meq/ Calcium Gluconate 6.3 meq/Magnesium Sulfate 10 meq/ Multivitamins 10 ml/Potassium Phosphate 20 meq/ Amino Acids/ Dextrose/Purified Water 1,038.0938 ml @ 43 mls/hr Q24H9M IV 08/26/25 22:00 08/27/25 21:59 Cancel Enteral Nutritional Formula 1,000 ml 30ML/HR GT 08/26/25 15:00 09/01/25 01:39 1,000 ML Propofol 100 ml @ 4.404 mls/ hr [id number] IV 08/26/25 21:15 09/01/25 05:03 8.808 MLS/HR Lactulose 30 ml DAILY PO 08/28/25 10:00 09/01/25 09:40 30 ML Iron Sucrose 110 ml @ 110 mls/hr DAILY@1200 IV 08/29/25 12:00 09/02/25 11:59 08/31/25 12:26 110 MLS/HR Furosemide 40 mg BIDD IV 08/31/25 18:00 09/01/25 05:31 40 MG Meropenem 50 ml @ 17 mls/hr Q8H IV 08/31/25 18:00 09/01/25 09:40 17 MLS/HR Examination General: Patient sedated, intubated. HEENT: Pupils B/L equal and reactive to light. Normocephalic, atraumatic. Respiratory/pulmonary: B/L breath sounds heard. Cardiovascular: Irregular heart rate Abdomen: Abdomen nondistended, normal bowel sounds heard. Extremities: Warm bilateral extremities. B/L upper arm ecchymosis. Grade 2 pitting edema in right lower limb (up to knees) Grade 3 in left lower limb upto the knee. Grade 3 pitting edema in B/L upper extremities extending upto arms. Peripheral Pulses: 3+ Radial (R). 3+ Radial (L). 3+ Dorsalis pedis (R). 3+ Dorsalis pedis(L) Skin: Small partial thickness linear skin tears approximately 0.5X1 cm in abdominal folds, left arm and left lower leg. laboratory and microbiology Laboratory Tests 09/01/25 03:01 Test 09/01/25 03:01 Range/Units Serum Glucose 95 74-106 mg/dL Microbiology Date/Time Source Procedure Growth Status 08/23/25 16:30 Urine - Abreu Port Urine Culture - Final Complete 08/18/25 10:55 Nose MRSA Screen - Final Complete Problem List/Assessment/Plan Problem List/Assessment/Plan Neurology # Sedation, Analgesia Propofol 10 mcg/kg/hr Fentanyl 150 mcg/hr Can consider adding propofol for sedation. # Acute metabolic encephalopathy likely due to hyperammonemia Ammonia levels have normalized. Cardiovascular # Acute on chronic HFpEF heart failure Likely precipitated by fluid overload and sepsis Echocardiogram: LVEF 50%. mild mitral regurgitation. mild tricuspid regurgitation. mild to moderate pulmonic regurgitation Bumex drip, Furosemide 20 mg IV discontinued Jardiance, Furosemide, and carvedilol held at this time Continue diuresis with Furosemide 40 mg IV b.i.d. CXR show increased right hemithorax pleural opacification. Closely monitoring I&O with IV lasix, trial of CPAP. # Chronic Atrial Fibrillation Amiodarone - held due to bradycardia # Severe Pulmonary Hypertension Sildenafil held Ambrisentan 5 mg held # Bradycardia Midodrine 10 mg TID Discontinued Dopamine 2 mcg d/t tachycardia Respiratory # Ventilator Intubated (08/19/2025) On [facility] ventilation: AC-VC TV of 450ml, PEEP Of 8 and FiO2 of 30% # Acute hypoxic respiratory failure # Acute hypercapnic respiratory failure S/p intubation Blood gas show normalization of pH, pCO2, pO2 Possible CPAP trial tomorrow # Pulmonary Edema with bilateral pleural effusions Chest xray: Stable appearing pulmonary edema and small bilateral pleural effusions. # Pneumonia, ruled out Azithromycin discontinued Gastrointestinal # Acute hypovolemic shock likely due to Lower GI Bleed # Segmental ischemic colitis or diverticular disease, possible 8 PRBC transfusions, 4 FFPs, 5 Platelet transfusions Stool occult positive, discontinued Sandostatin Protonix 40 mg IV BID Vasopressin (holding off for now) Quadlevo continued Dopamine switched to Levophed d/t Tachycardia; NS 250 cc bolus given H&H stable; continue monitoring GI recommended bedside colonoscopy tomorrow. Patient to undergo bowel prep with rectal tube. # Liver cirrhosis likely due to fatty liver disease # Acute metabolic encephalopathy likely due to hyperammonemia # Hypoalbuminemia MELD score 26 Continue lactulose Monitor ammonia Continue Albumin supplementation Continue diuresis with Furosemide 40 mg IV b.i.d. CXR show increased right hemithorax pleural opacification. Closely monitoring I&O with IV lasix, trial of CPAP. # Cholelithaisis Abdominal US: The gallbladder wall measures 0.3 cm and is normal in size. Gallstones are noted. # 2 cm sliding type hiatal hernia # Mild gastritis EGD 08/26/2025: 1-2 cm sliding-type hiatal hernia with no significant erosive esophagitis, mild gastritis involving the antrum and body of the stomach with some linear gastric erosions GI recommended Protonix 40 mg b.i.d. IV, discontinue IV Sandostatin drip, continue to monitor labs and transfuse if hemoglobin drops below 7, elective colonoscopy once medically stabilized Continue IV iron therapy CT scan of the abdomen pelvis shows liver cirrhosis, splenomegaly. Pulmonary hypertension, B/L LL opacities. Enlargement of the uterus with a lobulated contour and scattered calcifications, possibly referable to fibroids. Genitourinary # Abreu catheter present draining clear urine # Complicated UTI Urine culture: E coli ESBL Meropenem 1 g IV q8 hrs UA shows signs of improved infection UC: No growth after 48 hours Nephrology # RUDDY on CKD likely due to hemodynamically mediated (d/t VMN) Per nephrology, renal function is improving, dialysis is being held at this time. Jose M catheter remain in its place due to thrombocytopenia until patient is more stabilized. # Hyperkalemia, resolved # Hypernatremia Monitor BMP Infectious disease # Possible Septic Shock due to UTI Meropenem 1 g IV BID Urine Culture: E. Coli ESBL Follow up UA shows improvement; Follow up UC shows no growth at 48 hours Vasopressin (holding off for now) Quadlevo continued Hem/onc # Acute hypovolemic shock likely due to Lower GI Bleed Managed w/ 8 PRBC transfusions, 4 FFPs, 5 Platelet transfusions D/c Sandostatin drip Protonix 40 mg IV BID Dopamine switched to Levophed d/t Tachycardia (08/29/25) # Pancytopenia Possibly associated to liver cirrhosis DVT prophylaxis: SCDs Peptic ulcer prophylaxis: Pantoprazole 40 mg IV BID Nutrition: TPN Lines -R PICC line 08/19 -Abreu catheter 08/19 -ET tube: 08/19 -Jose M catheter 08/19 Drips during [facility] ventilation: Propofol 10 mcg/kg/min Fentanyl 150 mcg/hr Vasopressin Quadlevo discontinued Sandostatin discontinued Dopamine discontinued Levophed started (08/29/25) Patient on vasopressin (holding off for now), Levophed. BP goals of SBP> 90. Dopamine discontinued d/t elevated heart rate. Patient is in critical condition, all findings and care plan discussed with her son at bedside. Questions and concerns were thoroughly addressed, prognosis is poor. Critical care time 57 minutes excluding procedure. Code status discussed greater than 20 minutes: Full CODE STATUS. Family at bedside explained about the condition of the patient. Goals of care discussed with son on bedside. Plan discussed with Dr. Malin Plan discussed with: Son, Other (nurses) My Orders My Orders Orders - KLAUDIA OLWE Procedure Category Date Status Time Dexmedetomidine Hcl PHA 08/31/25 In Process In D5w (Precedex) 16:45 Chest Portable XY 09/01/25 Resulted 04:00 Complete Blood Count LAB 09/02/25 Verified 04:00 Comprehensive LAB 09/02/25 Verified Metabolic Panel 04:00 Abg W/ Co-Ox RT 09/02/25 Verified 04:00 Chest Portable XY 09/02/25 Verified 04:00 Ammonia LAB 09/02/25 Verified 04:00 CC Plasma Assessment Blood Product Administration S: [id number] Date of Service: Sep 01, 2025 Billing Provider: ALINA GALLO MD Common Visit Codes: 66655-PERFYROH CARE 30-74 MIN KLAUDIA LOWE RESIDENT Sep 01, 2025 12:56 ALINA GALLO MD Sep 04, 2025 11:14
[2025-09-01] MEDS: GOLYTELY 4L KIT PO ONE (21:00)
[2025-09-02] VITALS (108 sets, daily range): BP systolic 88–146; BP diastolic 33–99; PULSE 55–145; RESP 9–97; TEMP 97.9–98.3; O2SAT 68–100
[2025-09-02 04:22] LABS: Hematocrit 26.2 % (36.0-46.0); Hemoglobin 8.6 g/dL (12.2-16.2); Mean Corpuscular Hemoglobin 28.5 pg (28.0-32.0); Mean Corpuscular Volume 86.8 fL (80.0-100.0); Nucleated Red Blood Cells % 0.1 %
[2025-09-02 04:35] LABS: Albumin 3.2 g/dL (3.2-4.8); Alkaline Phosphatase 103 U/L (46-116); Anion Gap 11 (5-15); BUN/Creatinine Ratio 28.8 (10.0-20.0); Calcium 8.7 mg/dL (8.7-10.4); Carbon Dioxide 30 mmol/L (20-31); Chloride 104 mmol/L (98-107); Glucose 92 mg/dL (74-106); Potassium 3.7 mmol/L (3.5-5.1); Total Protein 6.2 g/dL (5.7-8.2)
[2025-09-02 04:38] LABS: INR 1.24 (0.9-1.15); Partial Thromboplastin Time 35.7 SEC (24.5-34.5); Prothrombin Time 12.9 sec (9.3-11.8)
[2025-09-02 04:50] LABS: Alanine Aminotransferase < 9 U/L (7-40); Bilirubin, Total 2.2 mg/dL (0.2-1.0); Blood Urea Nitrogen 30 mg/dL (9-23); Sodium 145 mmol/L (136-145)
[2025-09-02 04:54] LABS: Magnesium 1.7 mg/dL (1.6-2.6)
[2025-09-02] MEDS: MAGNESIUM CITRATE SOLUTION 300 ML BTL PO ONE (04:57)
[2025-09-02] MEDS: FUROSEMIDE 40 MG/4 ML VIAL IV ONE (06:00)
--- NOTE | 2025-09-02 06:06 | DVH ---
CHEST RADIOGRAPH INDICATION: intubation TECHNIQUE: Single frontal view of the chest was obtained COMPARISON: XY CHEST PORTABLE on DOS: 09/01/25, XY CHEST PORTABLE on DOS: 08/31/25, XY CHEST PORTABLE on DOS: 08/30/25, XY CHEST XRAY 1 VIEW on DOS: 08/29/25, XY CHEST XRAY 1 VIEW on DOS: 08/28/25 FINDINGS: Lines and Tubes: Unchanged. Lungs: Interval decrease in extensive multifocal consolidative appearing right hemithoracic pulmonary airspace disease. Stable small bilateral pleural effusions. No pneumothorax. Cardiomediastinal contours: Cardiomegaly. Bones: Unremarkable IMPRESSION: 1. Interval decrease in extensive multifocal consolidative appearing right hemithoracic pulmonary airspace disease. 2. Stable small bilateral pleural effusions. 3. Cardiomegaly. 4. Lines and tubes unchanged.
[2025-09-02] MEDS: GOLYTELY 4L KIT PO ONE (06:46)
[2025-09-02] MEDS: MAGNESIUM SULFATE 1GM/100ML 100 ML IV ONE (07:30)
[2025-09-02 07:52] LABS: Base Excess 2.6 mmol/L (-2.0-3.0)
--- NOTE | 2025-09-02 11:07 | DVHPNRES ---
Progress Note Date Seen: Sep 02, 2025 Resident Creating Document: KLAUDIA LOWE RESIDENT Has the PT tested + for MRSA If YES, has PT been informed?: No Medical Necessity Reason Pt with a Central, PICC or Fol: Yes The following are medically ne: PICC Line, Abreu Catheter Subjective Review of Systems Ms. Worthington is a 65 year old female with past medical history of HFpEF liver cirrhosis, chronic atrial fibrillation, anemia with multiple blood transfusions in the past, and pulmonary hypertension, who presented to [facility] via EMS due shortness of breath. As per her sons, the patient has had progressively worsening bilateral leg edema for the last month associated with worsening shortness of breath for two weeks. They state that she is compliant with her medications, however, every few months they have to take their mom to the hospital for similar symptoms, with most recent hospitalization in late May 2025. She was seen by her home health nurse on Friday (08/15/2025) night, who told the family to call EMS. As per records, on scene she was found to have a saturation of 90% on room air, she placed on 2 L NC with improvement to 92% and brought to the emergency department. On initial evaluation in the ER, she was afebrile, MAP within normal range, saturating adequately on 2L NC. She was found to have anasarca reaching up to her thighs. 12 lead EKG showed atrial fibrillation. Initial labs are significant for pancytopenia, hyperkalemia, BUN 84, creatinine 2.14, BNP 207, troponins negative, and lipase 178. UA is consistent with a UTI. Chest Xray significant for hazy opacities throughout the right lung, and stable cardiomediastinal enlargement. The patient was started on IV Lasix, hyperkalemia protocol, IV antibiotics, and of 1 PRBC and was admitted for further work up and management. The patient was evaluated by nephrology who initially recommended diuresis, albumin and low dose dopamine, and midodrine, however, due to progressively worsening kidney function, dialysis was recommended. On 08/18/2025 patient was found lethargic and disoriented, blood gas showed hypoxic and hypercapnic respiratory failure, she was started on BiPAP and transferred to the ICU. Mentation continued to deteriorate and required intubation for airway protection and respiratory insufficiency. Patient presented two large bloody bowel movements requiring emergent transfusion of 2 PRBCs and vasopressors. She was evaluated by gastroenterology who recommended use of PPI, octreotide, and transfusions as needed with endoscopy when stable. Prior medical history: HFrEF, Liver cirrhosis, Chronic Atrial Fibrillation, Anemia s/p multiple blood transfusions, and pulmonary hypertension Prior surgical history: 3 c-sections Social: Sons deny any previous drug, tobacco, or alcohol use. She recently moved to the area to live with her son, Dalia. 08/29/25: Patient was seen at bedside. Patient is sedated and mechanically ventilated. Son Shashank was present in the bedside on bedside. After overnight patient had bradycardia and soft blood pressure, patient's vitalized somewhat in the morning. She underwent CT Abdomen as per GI recommendations. Eventually, patient was tachycardic, dopamine drip discontinued. Levophed started to maintain BP. Patient also exhibited another episode of bloody bowel movement; H&H remained stable. 08/30/25: Patient was seen at bedside. Patient is sedated and mechanically ventilated. No significant overnight events. Patient had two burgundy red bowel movements yesterday and one today. H&H has remained stable. Discussed trial of CPAP and tapering vasopressor support with aim SBP of above 90 (instead of MAP goals in context of low DBP). Discussed plan and goals of care in detail with patient's son. 08/31/2025: Patient was seen at bedside. Patient is sedated and mechanically ventilated. Two large dark red loose bowel movements last night, holding off lactulose. Her H&H has remained stable. Patient's chemistry showed creatinine and BUN elevated with elevated BUN to creatinine ratio. Ammonia and T bilirubin has normalized. Patient's I&O shows positive balance, we will increase Lasix dose to 40 mg IV b.i.d. along with albumin supplementation. Trial to wean off sedation and CPAP tomorrow. Discussed going down on propofol and starting Precedex. 09/01/25: Patient was seen at bedside. Patient is sedated and mechanically ventilated. Yesterday PEEP reduced from 7 to 5. GI recommended bedside colonoscopy with bowel prep with rectal tube. Can consider adding propofol for sedation. CXR show increased right hemithorax pleural opacification. Closely monitoring I&O with IV lasix, trial of CPAP. 09/02/25: Patient was seen at bedside. Patient is sedated and ventilated. Patient underwent bowel prep, bedside colonoscopy scheduled for today. No significant overnight events. We will continue Lasix at once daily dosing. Trial of CPAP. Objective vital signs Vital Sign Date Time Temp Pulse Resp B/P (MAP) Pulse Ox O2 Delivery O2 Flow Rate FiO2 09/02/25 10:25 65 22 115/50 (71) 98 30 09/02/25 10:00 Mechanical Ventilator+ 09/02/25 04:00 97.9 97.9 Total Intake and Output 09/01/25 09/01/25 09/02/25 15:00 23:00 07:00 Intake Total 99.488 ml 220.353 ml 3538.904 ml Output Total 4225 ml 4450 ml Balance 99.488 ml -4004.647 ml -911.096 ml medications Current Medications Medications Dose Ordered Sig/Erum Route Start Time Stop Time Status Last Admin Dose Admin Albuterol 2.5 mg Q6HPRN PRN NEB 08/15/25 21:45 08/29/25 11:17 2.5 MG Acetaminophen 650 mg Q6HP PRN PO 08/15/25 22:15 Sodium Chloride 10 ml QSHIFT@10,22 IV 08/19/25 22:00 09/02/25 09:43 10 ML Fentanyl Citrate 250 ml @ 2.5 mls/hr Q24H IV 08/19/25 16:45 09/01/25 03:29 7.5 MLS/HR Norepinephrine Bitartrate 32 mg/ Sodium Chloride 250 ml @ 0.938 mls/ hr Q24H IV 08/19/25 19:45 09/01/25 02:43 1.875 MLS/HR Pantoprazole Sodium 40 mg BID IV 08/22/25 10:00 09/02/25 09:43 40 MG Albumin Human 100 ml @ 100 mls/hr PRN PRN IV 08/22/25 17:00 Vasopressin 20 units/Sodium Chloride 100 ml @ 9 mls/hr Q11H7M IV 08/24/25 18:15 08/25/25 04:49 6 MLS/HR Midodrine 10 mg TID@0600,1200,1800 NG 08/25/25 18:00 09/02/25 04:53 10 MG Sodium Chloride 10 meq/Potassium Chloride 10 meq/ Calcium Gluconate 6.3 meq/Magnesium Sulfate 10 meq/ Multivitamins 10 ml/Potassium Phosphate 20 meq/ Amino Acids/ Dextrose/Purified Water 1,038.0938 ml @ 43 mls/hr Q24H9M IV 08/26/25 22:00 08/27/25 21:59 Cancel Enteral Nutritional Formula 1,000 ml 30ML/HR GT 08/26/25 15:00 09/01/25 01:39 1,000 ML Propofol 100 ml @ 4.404 mls/ hr [id number] IV 08/26/25 21:15 09/02/25 02:55 13.212 MLS/HR Lactulose 30 ml DAILY PO 08/28/25 10:00 09/01/25 09:40 30 ML Iron Sucrose 110 ml @ 110 mls/hr DAILY@1200 IV 08/29/25 12:00 09/02/25 11:59 09/01/25 13:22 110 MLS/HR Meropenem 50 ml @ 17 mls/hr Q8H IV 08/31/25 18:00 09/02/25 09:42 17 MLS/HR Furosemide 40 mg ONCE IV 09/03/25 06:00 UNV Examination General: Patient sedated, intubated. HEENT: Pupils B/L equal and reactive to light. Normocephalic, atraumatic. Respiratory/pulmonary: B/L breath sounds heard. Cardiovascular: Irregular heart rate Abdomen: Hyperactive bowel sounds Extremities: Warm bilateral extremities. B/L upper arm ecchymosis. Grade 1 pitting edema in B/L lower limbs in bilateral feet. Grade 2 pitting edema in B/L upper extremities. Skin: Small partial thickness linear skin tears approximately 0.5X1 cm in abdominal folds, left arm and left lower leg. laboratory and microbiology Laboratory Tests 09/02/25 03:43 Test 09/02/25 03:43 Range/Units Serum Glucose 92 74-106 mg/dL Microbiology Date/Time Source Procedure Growth Status 08/23/25 16:30 Urine - Abreu Port Urine Culture - Final Complete 08/18/25 10:55 Nose MRSA Screen - Final Complete Problem List/Assessment/Plan Problem List/Assessment/Plan Neurology # Sedation, Analgesia Propofol 10 mcg/kg/hr Fentanyl 150 mcg/hr Can consider adding propofol for sedation. # Acute metabolic encephalopathy likely due to hyperammonemia Ammonia levels have normalized. Cardiovascular # Acute on chronic HFpEF heart failure Likely precipitated by fluid overload and sepsis Echocardiogram: LVEF 50%. mild mitral regurgitation. mild tricuspid regurgitation. mild to moderate pulmonic regurgitation Bumex drip, Furosemide 20 mg IV discontinued Jardiance, Furosemide, and carvedilol held at this time CXR on 09/01/2025 show increased right hemithorax pleural opacification. Reduce Furosemide 40 mg IV from b.i.d. dosing to once daily Closely monitoring I&O with IV lasix, trial of CPAP. # Chronic Atrial Fibrillation Amiodarone - held due to bradycardia # Severe Pulmonary Hypertension Sildenafil held Ambrisentan 5 mg held # Bradycardia Midodrine 10 mg TID Discontinued Dopamine 2 mcg d/t tachycardia Respiratory # Ventilator Intubated (08/19/2025) On [facility] ventilation: AC-VC TV of 450ml, PEEP Of 8 and FiO2 of 30% # Acute hypoxic respiratory failure # Acute hypercapnic respiratory failure S/p intubation Blood gas show normalization of pH, pCO2, pO2 Spontaneous breathing trial today, held CPAP trial tomorrow # Pulmonary Edema with bilateral pleural effusions Chest xray: Stable appearing pulmonary edema and small bilateral pleural effusions. # Pneumonia, ruled out Azithromycin discontinued Gastrointestinal # Acute hypovolemic shock likely due to Lower GI Bleed # Segmental ischemic colitis or diverticular disease, possible 8 PRBC transfusions, 4 FFPs, 5 Platelet transfusions Stool occult positive, discontinued Sandostatin Protonix 40 mg IV BID Vasopressin (holding off for now) Quadlevo continued Dopamine switched to Levophed d/t Tachycardia; NS 250 cc bolus given H&H stable; continue monitoring Completed Bedside colonoscopy today. As per GI specialist, patient has diverticulosis, likely the source of GI bleed. No active bleed seen. # Liver cirrhosis likely due to fatty liver disease # Acute metabolic encephalopathy likely due to hyperammonemia # Hypoalbuminemia MELD score 26 Continue lactulose Monitor ammonia Albumin supplemented Continue diuresis with Furosemide 40 mg IV daily Closely monitoring I&O with IV lasix, trial of CPAP. # Cholelithaisis Abdominal US: The gallbladder wall measures 0.3 cm and is normal in size. Gallstones are noted. # 2 cm sliding type hiatal hernia # Mild gastritis EGD 08/26/2025: 1-2 cm sliding-type hiatal hernia with no significant erosive esophagitis, mild gastritis involving the antrum and body of the stomach with some linear gastric erosions GI recommended Protonix 40 mg b.i.d. IV, discontinue IV Sandostatin drip, continue to monitor labs and transfuse if hemoglobin drops below 7, elective colonoscopy once medically stabilized Continue IV iron therapy CT scan of the abdomen pelvis shows liver cirrhosis, splenomegaly. Pulmonary hypertension, B/L LL opacities. Enlargement of the uterus with a lobulated contour and scattered calcifications, possibly referable to fibroids. Genitourinary # Abreu catheter present draining clear urine # Complicated UTI Urine culture: E coli ESBL Meropenem 1 g IV q8 hrs UA shows signs of improved infection UC: No growth after 48 hours Nephrology # RUDDY on CKD likely due to hemodynamically mediated (d/t VMN) Per nephrology, renal function is improving, dialysis is being held at this time. Jose M catheter remain in its place due to thrombocytopenia until patient is more stabilized. # Hyperkalemia, resolved # Hypernatremia Monitor BMP Infectious disease # Possible Septic Shock due to UTI Meropenem 1 g IV BID Urine Culture: E. Coli ESBL Follow up UA shows improvement; Follow up UC shows no growth at 48 hours Vasopressin (holding off for now) Quadlevo continued Hem/onc # Acute hypovolemic shock likely due to Lower GI Bleed Managed w/ 8 PRBC transfusions, 4 FFPs, 5 Platelet transfusions D/c Sandostatin drip Protonix 40 mg IV BID Dopamine switched to Levophed d/t Tachycardia (08/29/25) # Pancytopenia Possibly associated to liver cirrhosis DVT prophylaxis: SCDs Peptic ulcer prophylaxis: Pantoprazole 40 mg IV BID Nutrition: TPN Lines -R PICC line 12/ -Abreu catheter 08/19 -ET tube: 12 -Jose M catheter 12/ Drips during [facility] ventilation: Propofol 10 mcg/kg/min Fentanyl 150 mcg/hr Vasopressin held Quadlevo discontinued Sandostatin discontinued Dopamine discontinued Levophed started (08/29/25) Patient on vasopressin (holding off for now), Levophed. BP goals of SBP> 90. Dopamine discontinued d/t elevated heart rate. Patient is in critical condition, all findings and care plan discussed with her son at bedside. Questions and concerns were thoroughly addressed, prognosis is poor. Critical care time 75 minutes excluding procedure. Code status discussed greater than 20 minutes: Full CODE STATUS. Family at bedside explained about the condition of the patient. Goals of care discussed with son on bedside. Plan discussed with Dr. Puga Plan discussed with: Son My Orders My Orders Orders - KLAUDIA LOWE RESIDENT Procedure Category Date Status Time Abg W/ Co-Ox RT 09/02/25 Logged 04:00 Chest Portable XY 09/02/25 Resulted 04:00 Furosemide Injection PHA 09/03/25 Logged (Lasix Injection) 06:00 CC Plasma Assessment Blood Product Administration S: [id number] KLAUDIA LOWE RESIDENT Sep 02, 2025 11:07
[2025-09-02] MEDS ORDERED: NALOXONE HCL 0.4 MG/ML VIAL ONE (11:11)
[2025-09-02] MEDS ORDERED: FLUMAZENIL 0.1 MG/ML INJ 10ML MDV IV ONE (11:11)
[2025-09-02] MEDS ORDERED: EPINEPHrine HCL 1 MG/10 ML SYRG ONE (11:12)
[2025-09-02] MEDS ORDERED: MIDAZOLAM HCL 5 MG/ML-1ML VIAL ONE (11:12)
[2025-09-02] MEDS ORDERED: fentaNYL CITRATE 100 MCG/2 ML VL ONE (11:13)
[2025-09-02] MEDS ORDERED: diphenhydrAMINE HCL 50 MG/1 ML VL ONE (11:13)
[2025-09-02] MEDS ORDERED: SODIUM CHLORIDE LOCK 0 ML ONE (11:14)
--- NOTE | 2025-09-02 14:33 | DVHOP2 ---
Operative Report DATE OF OPERATION: 09/02/25 PROCEDURE: Diagnostic Colonoscopy. PREOPERATIVE INDICATION: The patient is a 65 -year-old female undergoing colonoscopy for rectal bleeding POSTOPERATIVE DIAGNOSES: 1. Moderate scattered diverticular disease with no active bleeding at this time 2. Patient had a superficial AVM in the hepatic flexure but no active bleeding 3. 1+ internal hemorrhoids without bleeding otherwise completely normal colo noscopy examination up to the cecum PROCEDURE PERFORMED BY: Stephanie Elena M.D. SCOPE: Olympus videocolonoscope. ASA CLASS: 3. PREOPERATIVE MEDICATIONS: Patient is intubated on a fentanyl drip PROCEDURE IN DETAIL: After obtaining an informed consent, the patient was placed on left lateral decubitus position. She was then sedated with the above medications. A rectal examination was performed that was normal. The colonoscope was then passed through the anus into the rectosigmoid and through the descending, transverse, and ascending colon up to the cecum with visualization of the appendiceal orifice, base of the cecum and the ileocecal valve. The colonoscope was then withdrawn. No polyps or masses were seen. There was no colitis. There was no fresh or old blood in the colon. Patient had a superficial AVM at the hepatic flexure Patient had scattered diverticular disease more prominent in the sigmoid colon. On retroflexion and straight on view patient had 1+ internal hemorrhoids The patient tolerated the procedure well without difficulty. WITHDRAWAL TIME: 8 minutes QUALITY OF THE PREP: [place] Bowel Prep score: 9. COMPLICATIONS : None SPECIMENS: None DISPOSITION: Stable Continue to monitor in ICU PLAN: 1. Repeat colonoscopy in 10 years 2. Continue supportive care, monitor labs 3. CPAP trial 4. Resume NG-tube feedings 5. Hold blood thinner STEPHANIE ELENA MD Sep 02, 2025 14:33
--- NOTE | 2025-09-02 22:05 | DVHPN2 ---
Subjective DOS: 09/02/2025 Patient seen and examined at bedside. Sedated, intubated on mechanical ventilator. Overnight events reviewed. Reviewed: H&P Changes from previous H/P or p: No Changes Objective Vitals Vital Signs Date Time Temp Pulse Resp B/P (MAP) Pulse Ox O2 Delivery O2 Flow Rate FiO2 09/02/25 20:25 77 22 112/38 (62) 98 30 09/02/25 20:00 Mechanical Ventilator+ 09/02/25 14:00 97.3 97.3 Intake/Output Intake and Output 09/02/25 07:00 Intake Total 3858.745 ml Output Total 8675 ml Balance -4816.255 ml Intake Oral 3360 ml IV Total 498.745 ml Tube Feeding 0 ml Output Urine Total 7975 ml Stool Total 700 ml Exam Gen.: Patient lying in bed in medical ICU. Sedated, intubated on mechanical ventilator. Head: Normocephalic, atraumatic. Eyes: PERRLA. Ears: Normal external anatomy. Throat: Endotracheal tube and orogastric tube in place. Neck: Supple, trachea midline. Chest: Transmitted breath sounds bilaterally. Decreased air entry bilaterally. No wheezing. Bibasilar crackles. Cardiovascular: Positive S1, positive S2. Regular rate and rhythm. Abdomen: Positive bowel sounds in all 4 quadrants. Soft, nontender, nondistended. : Abreu in place. Normal external genitalia. Rectal: Deferred. Skin: Warm, dry. Intact. Extremities: 2+ radial pulses bilaterally. No lower extremity edema. Neuro: Sedated. General Appearance: Other (intubated and sedated) HEENT: Atraumatic Lungs: Other (On mechanical ventilator) Cardiovascular: Regular rate, Normal S1, Normal S2 Abdomen: Normal bowel sounds Medications Current Medications Medications Dose Ordered Sig/Erum Route Start Time Stop Time Status Last Admin Dose Admin Albuterol 2.5 mg Q6HPRN PRN NEB 08/15/25 21:45 08/29/25 11:17 2.5 MG Acetaminophen 650 mg Q6HP PRN PO 08/15/25 22:15 Sodium Chloride 10 ml QSHIFT@10,22 IV 08/19/25 22:00 09/02/25 21:57 10 ML Fentanyl Citrate 250 ml @ 2.5 mls/hr Q24H IV 08/19/25 16:45 09/01/25 03:29 7.5 MLS/HR Norepinephrine Bitartrate 32 mg/ Sodium Chloride 250 ml @ 0.938 mls/ hr Q24H IV 08/19/25 19:45 09/01/25 02:43 1.875 MLS/HR Pantoprazole Sodium 40 mg BID IV 08/22/25 10:00 09/02/25 21:57 40 MG Albumin Human 100 ml @ 100 mls/hr PRN PRN IV 08/22/25 17:00 Vasopressin 20 units/Sodium Chloride 100 ml @ 9 mls/hr Q11H7M IV 08/24/25 18:15 08/25/25 04:49 6 MLS/HR Midodrine 10 mg TID@0600,1200,1800 NG 08/25/25 18:00 09/02/25 18:00 10 MG Sodium Chloride 10 meq/Potassium Chloride 10 meq/ Calcium Gluconate 6.3 meq/Magnesium Sulfate 10 meq/ Multivitamins 10 ml/Potassium Phosphate 20 meq/ Amino Acids/ Dextrose/Purified Water 1,038.0938 ml @ 43 mls/hr Q24H9M IV 08/26/25 22:00 08/27/25 21:59 Cancel Enteral Nutritional Formula 1,000 ml 30ML/HR GT 08/26/25 15:00 09/01/25 01:39 1,000 ML Lactulose 30 ml DAILY PO 08/28/25 10:00 09/01/25 09:40 30 ML Meropenem 50 ml @ 17 mls/hr Q8H IV 08/31/25 18:00 09/02/25 18:00 17 MLS/HR Laboratory Results Laboratory Tests 09/02/25 03:43 Chemistry Test 09/02/25 03:43 Albumin 3.2 g/dL (3.2-4.8) Calcium Level 8.7 mg/dL (8.7-10.4) Magnesium Level 1.7 mg/dL (1.6-2.6) Phosphorus Level 2.9 mg/dL (2.4-5.1) Total Protein 6.2 g/dL (5.7-8.2) Coagulation Test 09/02/25 03:43 Prothrombin Time 12.9 sec (9.3-11.8) H Prothrombin Time INR 1.24 (0.9-1.15) H Activated Partial Thromboplast Time 35.7 SEC (24.5-34.5) H LFT Test 09/02/25 03:43 Alanine Aminotransferase (ALT) < 9 U/L (7-40) Alkaline Phosphatase 103 U/L (46-116) Aspartate Amino Transferase (AST) 26 U/L (13-40) Total Bilirubin 2.2 mg/dL (0.2-1.0) H Urinalysis Test 08/16/25 04:10 08/24/25 15:20 Urine WBC Clumps Present /hpf (None Seen) Urine Creatinine 50.59 mg/dL (30.0-125.0) Urine Protein/Creatinine Ratio 0.61 Urine Sodium 46 mmol/L (40-220) Urine Total Protein 30.8 mg/dL (1-14) H Urine Color Yellow (Yellow) Urine Clarity Turbid (Clear) H Urine pH 5.5 (5.0-9.0) Urine Specific [place] 1.017 (1.001-1.035) Urine Protein Trace (Negative) H Urine Ketones Negative (Negative) Urine Blood Negative /uL (Negative) Urine Nitrite Negative (Negative) Urine Bilirubin Negative (Negative) Urine Urobilinogen 2 mg/dL (Negative) H Urine Leukocyte Esterase 2+ /uL (Negative) Urine RBC <1 /hpf (0 - 4) Urine Microscopic WBC 25 /HPF (0-5) H Urine Squamous Epithelial Cells Mod /hpf (<5) Urine Bacteria None seen /hpf (None Seen) Urine Hyaline Casts Few /lpf (0 - 2) Urine Mucus Few (None Seen) Urine Glucose Normal mg/dL (Normal) Blood Gas Results Test 09/02/25 07:39 Arterial Blood pH 7.413 (7.350-7.450) FiO2 % 30.0 Microbiology Microbiology Date/Time Source Procedure Growth Status 08/23/25 16:30 Urine - Abreu Port Urine Culture - Final Complete 08/18/25 10:55 Nose MRSA Screen - Final Complete Assessment/Plan Assessment/Plan Impression: Acute on chronic hypoxic respiratory failure On mechanical ventilator Pulmonary hypertension Congestive heart failure Morbid obesity Acute on chronic renal failure Pancytopenia Events: Patient was emergently intubated and placed on mechanical ventilator on 08/19/25 She was noted to have massive bloody bowel movement; had rapid transfusion of 2 units PRBC Continue vent support On AC mode; RR 22, VT 450, PEEP 5, FiO2 30% Taper FiO2 as tolerated ABG reviewed, compensated. Chest x-ray reveals interval decrease in extensive multifocal consolidative appearing right hemithoracic pulmonary airspace disease. Stable small bilateral pleural effusions. Cardiomegaly.. On Fentanyl drip Nephrology recs appreciated Plan to remove right subclavian vein Jose M catheter as platelets remain stable. No further bloody bowel movements. Monitor hemoglobin - currently stable. Protonix BID EGD reviewed, showed sliding-type hiatal hernia. S/p colonoscopy - showed diverticulosis and hemorrhoids. GI recs appreciated. Hemodialysis per Nephrology Nephrology recs appreciated Diurese with Lasix Monitor renal function. Monitor electrolytes. Supplement as necessary. Monitor ins and outs. Remains off pressors, monitor hemodynamics Off Dopamine 2 mcg/min Continue bronchodilators. Continue antibiotics Monitor blood pressure -midodrine for BP support Continue lactulose due to elevated ammonia. Tube feeds for nutritional support Labs and imaging reviewed. Plan: S/p intubation on mechanical ventilator. On AC mode; RR 22, VT 450, PEEP 5, FiO2 30% Titrate FIO2 to keep O2 saturation above 90%. VAP bundle. Daily ABG and CXR while intubated Sedate for ventilator synchrony Pressors for hemodynamic support Titrate to keep mean arterial pressure greater than 65 mmHg Continue bronchodilators. Continue antibiotics Follow up Nephrology recs HD per Nephrology Diurese to euvolemia Monitor renal function. Monitor electrolytes. Supplement as necessary. Hyperkalemia resolved Monitor ins and outs. DVT prophylaxis. Prognosis: Poor given patient's multiple co-morbidities. Condition: Critical Rest of plan per hospitalist and other consultants. A total of 35 minutes of critical care time was spent reviewing the patient record, examining the patient, making a diagnostic and therapeutic plan, discussing this plan with the medical personnel, following up on diagnostic studies and following the patient for clinical stability excluding any and all procedures. At least 50% of this time was spent in direct, [id number] contact. Thank you, Dr. Longo, for allowing me to participate in this patient's care. Further recommendations will depend on the patient's clinical course. Please do not hesitate to contact me if you have any questions or concerns. This medical document was created using an electronic medical record system with [employer] system. Although these documentations are being carefully reviewed, there may still be some phonetic and typographical changes. The errors are purely typographical, due to imperfection on the software program, and do not reflect any compromise in the patient's medical care. Plan discussed with: Other (RN) Visit Coding Pulmonary Billing Provider: SILVIA RIVAS MD Date of Service if different f: Sep 02, 2025 Common Visit Codes: 76070-[id number] INP/OBS CARE(HIGH), 48403-[id number] CARE 30-74 MIN SILVIA RIVAS MD Sep 02, 2025 22:05
[2025-09-02] MEDS: PROPOFOL 100 ML IV SCH (23:56)
[2025-09-02] MEDS: PROPOFOL 100 ML IV ONE (23:56)
[2025-09-03] VITALS (108 sets, daily range): BP systolic 87–161; BP diastolic 20–76; PULSE 53–146; RESP 11–26; TEMP 98.3–99; O2SAT 95–100
[2025-09-03 03:29] LABS: Hematocrit 24.7 % (36.0-46.0); Hemoglobin 8.1 g/dL (12.2-16.2); Mean Corpuscular Hemoglobin 28.7 pg (28.0-32.0); Mean Corpuscular Volume 87.1 fL (80.0-100.0); Nucleated Red Blood Cells % 0.2 %
[2025-09-03 03:49] LABS: Alkaline Phosphatase 96 U/L (46-116); Anion Gap 13 (5-15); Carbon Dioxide 29 mmol/L (20-31); Chloride 105 mmol/L (98-107); Glucose 78 mg/dL (74-106); Total Protein 5.9 g/dL (5.7-8.2)
[2025-09-03 03:50] LABS: Alanine Aminotransferase < 9 U/L (7-40); Albumin 3.1 g/dL (3.2-4.8); Calcium 8.6 mg/dL (8.7-10.4); Potassium 3.5 mmol/L (3.5-5.1); Sodium 147 mmol/L (136-145)
[2025-09-03 03:57] LABS: BUN/Creatinine Ratio 33.3 (10.0-20.0)
[2025-09-03 04:00] LABS: Bilirubin, Total 1.4 mg/dL (0.2-1.0); Blood Urea Nitrogen 31 mg/dL (9-23)
--- NOTE | 2025-09-03 06:08 | DVH ---
CHEST RADIOGRAPH Indication: Intubation Technique: Single frontal view of the chest was obtained COMPARISON: XY CHEST PORTABLE on DOS: 09/02/25, XY CHEST PORTABLE on DOS: 09/01/25, XY CHEST PORTABLE on DOS: 08/31/25, XY CHEST PORTABLE on DOS: 08/30/25, XY CHEST XRAY 1 VIEW on DOS: 08/29/25 FINDINGS: Lines and Tubes: Endotracheal tube, enteric catheter and left PICC in satisfactory position. Lungs: Unchanged pulmonary vascular congestion Pleura: No effusion. No pneumothorax. Cardiomediastinal contours: Unchanged cardiomegaly Bones: Unremarkable IMPRESSION: Lines and tubes in satisfactory position. No significant interval change.
[2025-09-03 08:00] LABS: Base Excess 2.6 mmol/L (-2.0-3.0)
[2025-09-03] MEDS: FUROSEMIDE 40 MG/4 ML VIAL IV ONE (09:43)
--- NOTE | 2025-09-03 15:07 | DVHPNRES ---
Progress Note Date Seen: Sep 03, 2025 Resident Creating Document: LEIAL ALBARRAN RESIDENT Has the PT tested + for MRSA If YES, has PT been informed?: No Medical Necessity Reason Pt with a Central, PICC or Fol: Yes The following are medically ne: PICC Line, Abreu Catheter Subjective Review of Systems Ms. Worthington is a 65 year old female with past medical history of HFpEF liver cirrhosis, chronic atrial fibrillation, anemia with multiple blood transfusions in the past, and pulmonary hypertension, who presented to [facility] via EMS due shortness of breath. As per her sons, the patient has had progressively worsening bilateral leg edema for the last month associated with worsening shortness of breath for two weeks. They state that she is compliant with her medications, however, every few months they have to take their mom to the hospital for similar symptoms, with most recent hospitalization in late May 2025. She was seen by her home health nurse on Friday (08/15/2025) night, who told the family to call EMS. As per records, on scene she was found to have a saturation of 90% on room air, she placed on 2 L NC with improvement to 92% and brought to the emergency department. On initial evaluation in the ER, she was afebrile, MAP within normal range, saturating adequately on 2L NC. She was found to have anasarca reaching up to her thighs. 12 lead EKG showed atrial fibrillation. Initial labs are significant for pancytopenia, hyperkalemia, BUN 84, creatinine 2.14, BNP 207, troponins negative, and lipase 178. UA is consistent with a UTI. Chest Xray significant for hazy opacities throughout the right lung, and stable cardiomediastinal enlargement. The patient was started on IV Lasix, hyperkalemia protocol, IV antibiotics, and of 1 PRBC and was admitted for further work up and management. The patient was evaluated by nephrology who initially recommended diuresis, albumin and low dose dopamine, and midodrine, however, due to progressively worsening kidney function, dialysis was recommended. On 08/18/2025 patient was found lethargic and disoriented, blood gas showed hypoxic and hypercapnic respiratory failure, she was started on BiPAP and transferred to the ICU. Mentation continued to deteriorate and required intubation for airway protection and respiratory insufficiency. Patient presented two large bloody bowel movements requiring emergent transfusion of 2 PRBCs and vasopressors. She was evaluated by gastroenterology who recommended use of PPI, octreotide, and transfusions as needed with endoscopy when stable. 09/03/2025: Patient seen and examined at bedside, remained on CPAP trial today, however, parameters were not entirely at an acceptable limit. Put out 4 L of urine output over last 24 hours, continues to have 1-2 +pitting edema up to the knees, IV Lasix 40 mg once scheduled for tomorrow a.m.. Continues on meropenem. CPAP trial again tomorrow; 28/01, adjust pressure support to as high as 20 to achieve tidal volumes of 400-500. Objective vital signs Vital Sign Date Time Temp Pulse Resp B/P (MAP) Pulse Ox O2 Delivery O2 Flow Rate FiO2 09/03/25 12:00 30 09/03/25 12:00 22 96 Mechanical Ventilator+ 09/03/25 12:00 84 09/03/25 11:45 98.7 98.7 Total Intake and Output 09/02/25 09/02/25 09/03/25 15:00 23:00 07:00 Intake Total 105.345 ml 126.308 ml 240.3 ml Output Total 3425 ml 575 ml Balance 105.345 ml -3298.692 ml -334.7 ml medications Current Medications Medications Dose Ordered Sig/Erum Route Start Time Stop Time Status Last Admin Dose Admin Albuterol 2.5 mg Q6HPRN PRN NEB 08/15/25 21:45 08/29/25 11:17 2.5 MG Acetaminophen 650 mg Q6HP PRN PO 08/15/25 22:15 Sodium Chloride 10 ml QSHIFT@10,22 IV 08/19/25 22:00 09/03/25 09:39 10 ML Fentanyl Citrate 250 ml @ 2.5 mls/hr Q24H IV 08/19/25 16:45 09/01/25 03:29 7.5 MLS/HR Norepinephrine Bitartrate 32 mg/ Sodium Chloride 250 ml @ 0.938 mls/ hr Q24H IV 08/19/25 19:45 09/01/25 02:43 1.875 MLS/HR Pantoprazole Sodium 40 mg BID IV 08/22/25 10:00 09/03/25 09:39 40 MG Albumin Human 100 ml @ 100 mls/hr PRN PRN IV 08/22/25 17:00 Vasopressin 20 units/Sodium Chloride 100 ml @ 9 mls/hr Q11H7M IV 08/24/25 18:15 08/25/25 04:49 6 MLS/HR Midodrine 10 mg TID@0600,1200,1800 NG 08/25/25 18:00 09/03/25 06:03 10 MG Sodium Chloride 10 meq/Potassium Chloride 10 meq/ Calcium Gluconate 6.3 meq/Magnesium Sulfate 10 meq/ Multivitamins 10 ml/Potassium Phosphate 20 meq/ Amino Acids/ Dextrose/Purified Water 1,038.0938 ml @ 43 mls/hr Q24H9M IV 08/26/25 22:00 08/27/25 21:59 Cancel Enteral Nutritional Formula 1,000 ml 30ML/HR GT 08/26/25 15:00 09/02/25 22:24 1,000 ML Lactulose 30 ml DAILY PO 08/28/25 10:00 09/01/25 09:40 30 ML Meropenem 50 ml @ 17 mls/hr Q8H IV 08/31/25 18:00 09/03/25 09:39 17 MLS/HR Propofol 100 ml @ 4.431 mls/ hr [id number] IV 09/03/25 00:00 09/02/25 23:56 13.293 MLS/HR Examination General: Patient sedated, intubated. HEENT: Pupils B/L equal and reactive to light. Normocephalic, atraumatic. Respiratory/pulmonary: B/L breath sounds heard. Cardiovascular: Irregular heart rate Abdomen: Hyperactive bowel sounds Extremities: Warm bilateral extremities. B/L upper arm ecchymosis. Grade 1 pitting edema in B/L lower limbs in bilateral feet. Grade 2 pitting edema in B/L upper extremities. Skin: Small partial thickness linear skin tears approximately 0.5X1 cm in abdominal folds, left arm and left lower leg. laboratory and microbiology Laboratory Tests 09/03/25 03:03 Test 09/03/25 03:03 Range/Units Serum Glucose 78 74-106 mg/dL Microbiology Date/Time Source Procedure Growth Status 08/23/25 16:30 Urine - Abreu Port Urine Culture - Final Complete 08/18/25 10:55 Nose MRSA Screen - Final Complete Labs and/or images reviewed: Labs reviewed by me, Image(s) reviewed by me Problem List/Assessment/Plan Problem List/Assessment/Plan Neurology # Sedation, Analgesia Propofol 10 mcg/kg/hr Fentanyl 150 mcg/hr Can consider adding propofol for sedation. # Acute metabolic encephalopathy likely due to hyperammonemia Ammonia levels have normalized. Cardiovascular # Acute on chronic HFpEF heart failure Likely precipitated by fluid overload and sepsis Echocardiogram: LVEF 50%. mild mitral regurgitation. mild tricuspid regurgitation. mild to moderate pulmonic regurgitation Bumex drip, Furosemide 20 mg IV discontinued Jardiance, Furosemide, and carvedilol held at this time CXR on 09/01/2025 show increased right hemithorax pleural opacification. Reduce Furosemide 40 mg IV from b.i.d. dosing to once daily Closely monitoring I&O with IV lasix, trial of CPAP. # Chronic Atrial Fibrillation Amiodarone - held due to bradycardia # Severe Pulmonary Hypertension Sildenafil held Ambrisentan 5 mg held # Bradycardia Midodrine 10 mg TID Discontinued Dopamine 2 mcg d/t tachycardia Respiratory # Ventilator Intubated (08/19/2025) On [facility] ventilation: AC-VC TV of 450ml, PEEP Of 8 and FiO2 of 30% # Acute hypoxic respiratory failure # Acute hypercapnic respiratory failure S/p intubation Blood gas show normalization of pH, pCO2, pO2 Spontaneous breathing trial today, held CPAP trial tomorrow # Pulmonary Edema with bilateral pleural effusions Chest xray: Stable appearing pulmonary edema and small bilateral pleural effusions. # Pneumonia, ruled out Azithromycin discontinued Gastrointestinal # Acute hypovolemic shock likely due to Lower GI Bleed # Segmental ischemic colitis or diverticular disease, possible 8 PRBC transfusions, 4 FFPs, 5 Platelet transfusions Stool occult positive, discontinued Sandostatin Protonix 40 mg IV BID Vasopressin (holding off for now) Quadlevo continued Dopamine switched to Levophed d/t Tachycardia; NS 250 cc bolus given H&H stable; continue monitoring Completed Bedside colonoscopy today. As per GI specialist, patient has diverticulosis, likely the source of GI bleed. No active bleed seen. # Liver cirrhosis likely due to fatty liver disease # Acute metabolic encephalopathy likely due to hyperammonemia # Hypoalbuminemia MELD score 26 Continue lactulose Monitor ammonia Albumin supplemented Continue diuresis with Furosemide 40 mg IV daily Closely monitoring I&O with IV lasix, trial of CPAP. # Cholelithaisis Abdominal US: The gallbladder wall measures 0.3 cm and is normal in size. Gallstones are noted. # 2 cm sliding type hiatal hernia # Mild gastritis EGD 08/26/2025: 1-2 cm sliding-type hiatal hernia with no significant erosive esophagitis, mild gastritis involving the antrum and body of the stomach with some linear gastric erosions GI recommended Protonix 40 mg b.i.d. IV, discontinue IV Sandostatin drip, continue to monitor labs and transfuse if hemoglobin drops below 7, elective colonoscopy once medically stabilized Continue IV iron therapy CT scan of the abdomen pelvis shows liver cirrhosis, splenomegaly. Pulmonary hypertension, B/L LL opacities. Enlargement of the uterus with a lobulated contour and scattered calcifications, possibly referable to fibroids. Genitourinary # Abreu catheter present draining clear urine # Complicated UTI Urine culture: E coli ESBL Meropenem 1 g IV q8 hrs UA shows signs of improved infection UC: No growth after 48 hours Nephrology # RUDDY on CKD likely due to hemodynamically mediated (d/t VMN) Per nephrology, renal function is improving, dialysis is being held at this time. Jose M catheter remain in its place due to thrombocytopenia until patient is more stabilized. # Hyperkalemia, resolved # Hypernatremia Monitor BMP Infectious disease # Possible Septic Shock due to UTI Meropenem 1 g IV BID Urine Culture: E. Coli ESBL Follow up UA shows improvement; Follow up UC shows no growth at 48 hours Vasopressin (holding off for now) Quadlevo continued Hem/onc # Acute hypovolemic shock likely due to Lower GI Bleed Managed w/ 8 PRBC transfusions, 4 FFPs, 5 Platelet transfusions D/c Sandostatin drip Protonix 40 mg IV BID Dopamine switched to Levophed d/t Tachycardia (08/29/25) # Pancytopenia Possibly associated to liver cirrhosis DVT prophylaxis: SCDs Peptic ulcer prophylaxis: Pantoprazole 40 mg IV BID Nutrition: TPN Lines -R PICC line 08/19 -Abreu catheter 08/19 -ET tube: 08/19 -Jose M [facility]: Prop[facility]ol 10 mcg/kg/min Fentanyl 150 mcg/hr Vasopressin held Quadlevo discontinued Sandostatin discontinued Dopamine discontinued Levophed started (08/29/25) Patient on vasopressin (holding off for now), Levophed. BP goals of SBP> 90. Dopamine discontinued d/t elevated heart rate. Patient is in critical condition, all findings and care plan discussed with her son at bedside. Questions and concerns were thoroughly addressed, prognosis is poor. Critical care time 75 minutes excluding procedure. Code status discussed greater than 20 minutes: Full CODE STATUS. Family at bedside explained about the condition of the patient. Goals of care discussed with son on bedside. Plan discussed with Dr. Puga Plan discussed with: Patient, Son, Other (RN) My Orders My Orders Orders - LEILA ALBARRAN Procedure Category Date Status Time Cpap Trial For Am ORDERS 09/03/25 Transmitted 07:56 Furosemide Injection PHA 09/04/25 In Process (Lasix Injection) 04:00 CC Plasma Assessment Blood Product Administration S: 1245 Visit Coding STANDARD RES Billing Provider: SILVIA PUGA MD Date of Service if different f: Sep 03, 2025 Common Visit Codes: 99920-[id number] CARE 30-74 MIN, [id number] CARE-EACH +30MIN LEILA ALBARRAN Sep 03, 2025 15:07
--- NOTE | 2025-09-03 22:51 | DVHPN2 ---
Subjective DOS: 09/03/2025 Patient seen and examined at bedside. Sedated, intubated on mechanical ventilator. Overnight events reviewed. Reviewed: H&P Changes from previous H/P or p: No Changes Objective Vitals Vital Signs Date Time Temp Pulse Resp B/P (MAP) Pulse Ox O2 Delivery O2 Flow Rate FiO2 09/03/25 22:20 94 22 107/45 (65) 95 30 09/03/25 18:00 Mechanical Ventilator+ 09/03/25 11:45 98.7 98.7 Intake/Output Intake and Output 09/03/25 07:00 Intake Total 471.953 ml Output Total 4000 ml Balance -3528.047 ml Intake Oral 120 ml IV Total 315.953 ml Tube Feeding 36 ml Output Urine Total 2600 ml Stool Total 1400 ml Exam Gen.: Patient lying in bed in medical ICU. Sedated, intubated on mechanical ventilator. Head: Normocephalic, atraumatic. Eyes: PERRLA. Ears: Normal external anatomy. Throat: Endotracheal tube and orogastric tube in place. Neck: Supple, trachea midline. Chest: Transmitted breath sounds bilaterally. Decreased air entry bilaterally. No wheezing. Bibasilar crackles. Cardiovascular: Positive S1, positive S2. Regular rate and rhythm. Abdomen: Positive bowel sounds in all 4 quadrants. Soft, nontender, nondistended. : Abreu in place. Normal external genitalia. Rectal: Deferred. Skin: Warm, dry. Intact. Extremities: 2+ radial pulses bilaterally. No lower extremity edema. Neuro: Sedated. General Appearance: Other (intubated and sedated) HEENT: Atraumatic Lungs: Other (On mechanical ventilator) Cardiovascular: Regular rate, Normal S1, Normal S2 Abdomen: Normal bowel sounds Medications Current Medications Medications Dose Ordered Sig/Erum Route Start Time Stop Time Status Last Admin Dose Admin Albuterol 2.5 mg Q6HPRN PRN NEB 08/15/25 21:45 08/29/25 11:17 2.5 MG Acetaminophen 650 mg Q6HP PRN PO 08/15/25 22:15 Sodium Chloride 10 ml QSHIFT@10,22 IV 08/19/25 22:00 09/03/25 09:39 10 ML Fentanyl Citrate 250 ml @ 2.5 mls/hr Q24H IV 08/19/25 16:45 09/03/25 17:17 2.5 MLS/HR Norepinephrine Bitartrate 32 mg/ Sodium Chloride 250 ml @ 0.938 mls/ hr Q24H IV 08/19/25 19:45 09/01/25 02:43 1.875 MLS/HR Pantoprazole Sodium 40 mg BID IV 08/22/25 10:00 09/03/25 09:39 40 MG Albumin Human 100 ml @ 100 mls/hr PRN PRN IV 08/22/25 17:00 Vasopressin 20 units/Sodium Chloride 100 ml @ 9 mls/hr Q11H7M IV 08/24/25 18:15 08/25/25 04:49 6 MLS/HR Midodrine 10 mg TID@0600,1200,1800 NG 08/25/25 18:00 09/03/25 17:17 10 MG Sodium Chloride 10 meq/Potassium Chloride 10 meq/ Calcium Gluconate 6.3 meq/Magnesium Sulfate 10 meq/ Multivitamins 10 ml/Potassium Phosphate 20 meq/ Amino Acids/ Dextrose/Purified Water 1,038.0938 ml @ 43 mls/hr Q24H9M IV 08/26/25 22:00 08/27/25 21:59 Cancel Enteral Nutritional Formula 1,000 ml 30ML/HR GT 08/26/25 15:00 09/02/25 22:24 1,000 ML Lactulose 30 ml DAILY PO 08/28/25 10:00 09/01/25 09:40 30 ML Meropenem 50 ml @ 17 mls/hr Q8H IV 08/31/25 18:00 09/03/25 18:07 17 MLS/HR Propofol 100 ml @ 4.431 mls/ hr [id number] IV 09/03/25 00:00 09/03/25 17:18 4.431 MLS/HR Laboratory Results Laboratory Tests 09/03/25 03:03 Chemistry Test 09/03/25 03:03 Albumin 3.1 g/dL (3.2-4.8) L Calcium Level 8.6 mg/dL (8.7-10.4) L Total Protein 5.9 g/dL (5.7-8.2) LFT Test 09/03/25 03:03 Alanine Aminotransferase (ALT) < 9 U/L (7-40) Alkaline Phosphatase 96 U/L (46-116) Aspartate Amino Transferase (AST) 25 U/L (13-40) Total Bilirubin 1.4 mg/dL (0.2-1.0) H Urinalysis Test 08/16/25 04:10 08/24/25 15:20 Urine WBC Clumps Present /hpf (None Seen) Urine Creatinine 50.59 mg/dL (30.0-125.0) Urine Protein/Creatinine Ratio 0.61 Urine Sodium 46 mmol/L (40-220) Urine Total Protein 30.8 mg/dL (1-14) H Urine Color Yellow (Yellow) Urine Clarity Turbid (Clear) H Urine pH 5.5 (5.0-9.0) Urine Specific Nichols 1.017 (1.001-1.035) Urine Protein Trace (Negative) H Urine Ketones Negative (Negative) Urine Blood Negative /uL (Negative) Urine Nitrite Negative (Negative) Urine Bilirubin Negative (Negative) Urine Urobilinogen 2 mg/dL (Negative) H Urine Leukocyte Esterase 2+ /uL (Negative) Urine RBC <1 /hpf (0 - 4) Urine Microscopic WBC 25 /HPF (0-5) H Urine Squamous Epithelial Cells Mod /hpf (<5) Urine Bacteria None seen /hpf (None Seen) Urine Hyaline Casts Few /lpf (0 - 2) Urine Mucus Few (None Seen) Urine Glucose Normal mg/dL (Normal) Blood Gas Results Test 09/03/25 07:48 Arterial Blood pH 7.427 (7.350-7.450) FiO2 % 30.0 Microbiology Microbiology Date/Time Source Procedure Growth Status 08/23/25 16:30 Urine - Abreu Port Urine Culture - Final Complete 08/18/25 10:55 Nose MRSA Screen - Final Complete Assessment/Plan Assessment/Plan Impression: Acute on chronic hypoxic respiratory failure On mechanical ventilator Pulmonary hypertension Congestive heart failure Morbid obesity Acute on chronic renal failure Pancytopenia Events: Patient was emergently intubated and placed on mechanical ventilator on 08/19/25 She was noted to have massive bloody bowel movement; had rapid transfusion of 2 units PRBC Continue vent support On AC mode; RR 22, VT 450, PEEP 5, FiO2 30% Taper FiO2 as tolerated ABG reviewed, compensated. Chest x-ray reveals unchanged pulmonary vascular congestion. Cardiomegaly. Devices in place. Consult Cardiology for management of atrial fibrillation. Continue bronchodilators. Continue antibiotics Monitor blood pressure -midodrine for BP support Remains off pressors, monitor hemodynamics Nephrology recs appreciated Remove right subclavian vein Jose M catheter as platelets remain stable. No further bloody bowel movements. Monitor hemoglobin - currently stable. Protonix BID EGD reviewed, showed sliding-type hiatal hernia. S/p colonoscopy - showed diverticulosis and hemorrhoids. GI recs appreciated. Hemodialysis per Nephrology Nephrology recs appreciated Diurese with Lasix Monitor renal function. Monitor electrolytes. Supplement as necessary. Monitor ins and outs. Tube feeds for nutritional support Labs and imaging reviewed. Plan: S/p intubation on mechanical ventilator. On AC mode; RR 22, VT 450, PEEP 5, FiO2 30% Titrate FIO2 to keep O2 saturation above 90%. VAP bundle. Daily ABG and CXR while intubated Sedate for ventilator synchrony Pressors for hemodynamic support Titrate to keep mean arterial pressure greater than 65 mmHg Continue bronchodilators. Continue antibiotics Follow up Nephrology recs HD per Nephrology Diurese to euvolemia Monitor renal function. Monitor electrolytes. Supplement as necessary. Hyperkalemia resolved Monitor ins and outs. DVT prophylaxis. Prognosis: Poor given patient's multiple co-morbidities. Condition: Critical Rest of plan per hospitalist and other consultants. A total of 35 minutes of critical care time was spent reviewing the patient record, examining the patient, making a diagnostic and therapeutic plan, discussing this plan with the medical personnel, following up on diagnostic studies and following the patient for clinical stability excluding any and all procedures. At least 50% of this time was spent in direct, [id number] contact. Thank you, Dr. Longo, for allowing me to participate in this patient's care. Further recommendations will depend on the patient's clinical course. Please do not hesitate to contact me if you have any questions or concerns. This medical document was created using an electronic medical record system with [employer] dictation system. Although these documentations are being carefully reviewed, there may still be some phonetic and typographical changes. The errors are purely typographical, due to imperfection on the software program, and do not reflect any compromise in the patient's medical care. Plan discussed with: Other (RYAN Mathur) My Orders Orders - SILVIA RIVAS MD Procedure Category Date Status Time Propofol (Diprivan) PHA 09/03/25 In Process 00:00 Visit Coding Pulmonary Billing Provider: SILVIA RIVAS MD Date of Service if different f: Sep 03, 2025 Common Visit Codes: [id number] INP/OBS CARE(HIGH), [id number] CARE 30-74 MIN SILVIA RIVAS MD Sep 03, 2025 22:51
[2025-09-03] MEDS: MAGNESIUM SULFATE 1GM/100ML 100 ML IV SCH (23:47)
[2025-09-03] MEDS: POTASSIUM CHL 20MEQ/100ML 100 ML IV SCH (23:59)
[2025-09-04] VITALS (108 sets, daily range): BP systolic 91–151; BP diastolic 27–78; PULSE 71–120; RESP 12–31; TEMP 98–98.9; O2SAT 94–100
[2025-09-04 04:13] LABS: Hematocrit 24.9 % (36.0-46.0); Hemoglobin 8.3 g/dL (12.2-16.2); Mean Corpuscular Hemoglobin 29.1 pg (28.0-32.0); Mean Corpuscular Volume 87.6 fL (80.0-100.0); Nucleated Red Blood Cells % 0.1 %
[2025-09-04] MEDS: FUROSEMIDE 40 MG/4 ML VIAL IV ONE (04:45)
--- NOTE | 2025-09-04 06:26 | DVH ---
CHEST RADIOGRAPH INDICATION: intubated TECHNIQUE: Single frontal view of the chest was obtained COMPARISON: XY CHEST PORTABLE on DOS: 09/03/25, XY CHEST PORTABLE on DOS: 09/02/25, XY CHEST PORTABLE on DOS: 09/01/25, XY CHEST PORTABLE on DOS: 08/31/25, XY CHEST PORTABLE on DOS: 08/30/25, XY CHEST PORTABLE on DOS: 09/03/25 FINDINGS: Lines and Tubes: Endotracheal tube, enteric catheter and left PICC in satisfactory position. Lungs: Unchanged pulmonary vascular congestion Pleura: No effusion. No pneumothorax. Cardiomediastinal contours: Unchanged cardiomegaly Bones: Unremarkable IMPRESSION: Lines and tubes in satisfactory position. No significant interval change.
[2025-09-04 08:24] LABS: Alanine Aminotransferase 11 U/L (7-40); Albumin 3.3 g/dL (3.2-4.8); Alkaline Phosphatase 97 U/L (46-116); Anion Gap 12 (5-15); BUN/Creatinine Ratio 21.5 (10.0-20.0); Calcium 9.0 mg/dL (8.7-10.4); Chloride 105 mmol/L (98-107); Magnesium 2.1 mg/dL (1.6-2.6); Potassium 3.8 mmol/L (3.5-5.1); Total Protein 6.5 g/dL (5.7-8.2)
[2025-09-04 08:25] LABS: Bilirubin, Total 1.4 mg/dL (0.2-1.0); Blood Urea Nitrogen 23 mg/dL (9-23); Carbon Dioxide 31 mmol/L (20-31); Glucose 115 mg/dL (74-106); Sodium 148 mmol/L (136-145)
[2025-09-04 10:39] LABS: Base Excess 5.6 mmol/L (-2.0-3.0)
--- NOTE | 2025-09-04 10:44 | MEDREC ---
[facility] Intervention Section I [facility] Intervention: Review courses of therapy (16 DAYS ON MEROPENEM - RECOMMENDED DURATION OF THERAPY FOR UTI 5 TO 7 DAYS - PLEASE CONSIDER D/C MEROPENEM IN ABSENCE OF OTHER SITE(S) OF INFECTION) GUNNAR LARA PHARMACIST Sep 04, 2025 10:44
[2025-09-04] MEDS: ALBUTEROL SULF 2.5 MG/0.5ML(0.5%) NEB SOLN NEB PRN (10:52)
--- NOTE | 2025-09-04 12:59 | DVHPNRES ---
Progress Note Date Seen: Sep 04, 2025 Resident Creating Document: KLAUDIA LOWE RESIDENT Has the PT tested + for MRSA If YES, has PT been informed?: No Medical Necessity Reason Pt with a Central, PICC or Fol: Yes The following are medically ne: PICC Line, Abreu Catheter Subjective Review of Systems Ms. Worthington is a 65 year old female with past medical history of HFpEF liver cirrhosis, chronic atrial fibrillation, anemia with multiple blood transfusions in the past, and pulmonary hypertension, who presented to [facility] via EMS due shortness of breath. As per her sons, the patient has had progressively worsening bilateral leg edema for the last month associated with worsening shortness of breath for two weeks. They state that she is compliant with her medications, however, every few months they have to take their mom to the hospital for similar symptoms, with most recent hospitalization in late May 2025. She was seen by her home health nurse on Friday (08/15/2025) night, who told the family to call EMS. As per records, on scene she was found to have a saturation of 90% on room air, she placed on 2 L NC with improvement to 92% and brought to the emergency department. On initial evaluation in the ER, she was afebrile, MAP within normal range, saturating adequately on 2L NC. She was found to have anasarca reaching up to her thighs. 12 lead EKG showed atrial fibrillation. Initial labs are significant for pancytopenia, hyperkalemia, BUN 84, creatinine 2.14, BNP 207, troponins negative, and lipase 178. UA is consistent with a UTI. Chest Xray significant for hazy opacities throughout the right lung, and stable cardiomediastinal enlargement. The patient was started on IV Lasix, hyperkalemia protocol, IV antibiotics, and of 1 PRBC and was admitted for further work up and management. The patient was evaluated by nephrology who initially recommended diuresis, albumin and low dose dopamine, and midodrine, however, due to progressively worsening kidney function, dialysis was recommended. On 08/18/2025 patient was found lethargic and disoriented, blood gas showed hypoxic and hypercapnic respiratory failure, she was started on BiPAP and transferred to the ICU. Mentation continued to deteriorate and required intubation for airway protection and respiratory insufficiency. Patient presented two large bloody bowel movements requiring emergent transfusion of 2 PRBCs and vasopressors. She was evaluated by gastroenterology who recommended use of PPI, octreotide, and transfusions as needed with endoscopy when stable. Prior medical history: HFrEF, Liver cirrhosis, Chronic Atrial Fibrillation, Anemia s/p multiple blood transfusions, and pulmonary hypertension Prior surgical history: 3 c-sections Social: Sons deny any previous drug, tobacco, or alcohol use. She recently moved to the area to live with her son, Dalia. 09/04/2025: Patient was seen at bedside. Patient is intubated and ventilated. Patient failed CPAP trial yesterday. No significant overnight events. Her blood pressure has been on a higher side, holding midodrine. Failed CPAP trial today. Objective vital signs Vital Sign Date Time Temp Pulse Resp B/P (MAP) Pulse Ox O2 Delivery O2 Flow Rate FiO2 09/04/25 12:40 127/45 09/04/25 11:45 92 23 97 09/04/25 10:00 30 09/04/25 10:00 Mechanical Ventilator+ 09/04/25 08:00 98.9 98.9 Total Intake and Output 09/03/25 09/03/25 09/04/25 15:00 23:00 07:00 Intake Total 53.2 ml 197.5 ml 349.5 ml Output Total 2100 ml 1550 ml Balance 53.2 ml -1902.5 ml -1200.5 ml medications Current Medications Medications Dose Ordered Sig/Erum Route Start Time Stop Time Status Last Admin Dose Admin Acetaminophen 650 mg Q6HP PRN PO 08/15/25 22:15 Sodium Chloride 10 ml QSHIFT@10,22 IV 08/19/25 22:00 09/04/25 10:09 10 ML Fentanyl Citrate 250 ml @ 2.5 mls/hr Q24H IV 08/19/25 16:45 09/03/25 17:17 2.5 MLS/HR Norepinephrine Bitartrate 32 mg/ Sodium Chloride 250 ml @ 0.938 mls/ hr Q24H IV 08/19/25 19:45 09/01/25 02:43 1.875 MLS/HR Pantoprazole Sodium 40 mg BID IV 08/22/25 10:00 09/04/25 10:09 40 MG Albumin Human 100 ml @ 100 mls/hr PRN PRN IV 08/22/25 17:00 Vasopressin 20 units/Sodium Chloride 100 ml @ 9 mls/hr Q11H7M IV 08/24/25 18:15 08/25/25 04:49 6 MLS/HR Midodrine 10 mg TID@0600,1200,1800 NG 08/25/25 18:00 Hold 09/04/25 05:37 10 MG Sodium Chloride 10 meq/Potassium Chloride 10 meq/ Calcium Gluconate 6.3 meq/Magnesium Sulfate 10 meq/ Multivitamins 10 ml/Potassium Phosphate 20 meq/ Amino Acids/ Dextrose/Purified Water 1,038.0938 ml @ 43 mls/hr Q24H9M IV 08/26/25 22:00 08/27/25 21:59 Cancel Enteral Nutritional Formula 1,000 ml 30ML/HR GT 08/26/25 15:00 09/02/25 22:24 1,000 ML Lactulose 30 ml DAILY PO 08/28/25 10:00 09/01/25 09:40 30 ML Meropenem 50 ml @ 17 mls/hr Q8H IV 08/31/25 18:00 09/04/25 10:09 17 MLS/HR Propofol 100 ml @ 4.431 mls/ hr Q24V99S IV 09/03/25 00:00 09/04/25 12:40 13.293 MLS/HR Albuterol 2.5 mg Q4HP PRN NEB 09/04/25 09:45 09/04/25 10:52 2.5 MG Examination General: Patient intubated. Mildly sedated; Opens eyes spontaneously. HEENT: Pupils B/L equal and reactive to light. Normocephalic, atraumatic. Respiratory/pulmonary: Coarse bilateral breath sounds. Cardiovascular: Tachycardia. Irregular heart rate Abdomen: Hyperactive bowel sounds Extremities: Warm bilateral extremities. B/L upper arm ecchymosis. Trace pitting edema in B/L ankles. Grade 2 pitting edema in B/L hands. Skin: Small partial thickness linear skin tears approximately 0.5X1 cm in abdominal folds, left arm and left lower leg, reduced from baseline. laboratory and microbiology Laboratory Tests 09/04/25 08:01 09/04/25 03:30 Test 09/04/25 08:01 Range/Units Serum Glucose 115 H 74-106 mg/dL Microbiology Date/Time Source Procedure Growth Status 08/23/25 16:30 Urine - Abreu Port Urine Culture - Final Complete 08/18/25 10:55 Nose MRSA Screen - Final Complete Problem List/Assessment/Plan Problem List/Assessment/Plan Neurology # Sedation, Analgesia Propofol 10 mcg/kg/hr Fentanyl 150 mcg/hr # Acute metabolic encephalopathy likely due to hyperammonemia Ammonia levels have normalized. Cardiovascular # Acute on chronic HFpEF heart failure Likely precipitated by fluid overload and sepsis Echocardiogram: LVEF 50%. mild mitral regurgitation. mild tricuspid regurgitation. mild to moderate pulmonic regurgitation Bumex drip, Furosemide 20 mg IV discontinued Jardiance, Furosemide, and carvedilol held at this time CXR on 09/01/2025 show increased right hemithorax pleural opacification. Reduce Furosemide 40 mg IV from b.i.d. dosing to once daily. Closely monitoring I&O with IV lasix, trial of CPAP. # Chronic Atrial Fibrillation Amiodarone - held due to bradycardia # Severe Pulmonary Hypertension Sildenafil held Ambrisentan 5 mg held # Bradycardia Midodrine 10 mg TID Discontinued Dopamine 2 mcg d/t tachycardia Respiratory # Ventilator Intubated (08/19/2025) On [facility] ventilation: AC-VC TV of 450ml, PEEP Of 8 and FiO2 of 30% # Acute hypoxic respiratory failure # Acute hypercapnic respiratory failure S/p intubation Blood gas show normalization of pH, pCO2, pO2 Spontaneous breathing trial today, held Failed CPAP trial # Pulmonary Edema with bilateral pleural effusions Chest xray: Stable appearing pulmonary edema and small bilateral pleural effusions. # Pneumonia, ruled out Azithromycin discontinued Gastrointestinal # Acute hypovolemic shock likely due to Lower GI Bleed # Segmental ischemic colitis or diverticular disease, possible 8 PRBC transfusions, 4 FFPs, 5 Platelet transfusions Stool occult positive, discontinued Sandostatin Protonix 40 mg IV BID Vasopressin (holding off for now) Quadlevo discontinued Dopamine switched to Levophed d/t Tachycardia; NS 250 cc bolus given H&H stable; continue monitoring Completed Bedside colonoscopy today. As per GI specialist, patient has diverticulosis, likely the source of GI bleed. No active bleed seen. # Liver cirrhosis likely due to fatty liver disease # Acute metabolic encephalopathy likely due to hyperammonemia # Hypoalbuminemia MELD score 26 Continue lactulose Monitor ammonia Albumin supplemented Continue diuresis with Furosemide 40 mg IV daily as above Closely monitoring I&O with IV lasix, we will repeat CPAP trial tomorrow. # Cholelithaisis Abdominal US: The gallbladder wall measures 0.3 cm and is normal in size. Gallstones are noted. # 2 cm sliding type hiatal hernia # Mild gastritis EGD 08/26/2025: 1-2 cm sliding-type hiatal hernia with no significant erosive esophagitis, mild gastritis involving the antrum and body of the stomach with some linear gastric erosions GI recommended Protonix 40 mg b.i.d. IV, discontinue IV Sandostatin drip, continue to monitor labs and transfuse if hemoglobin drops below 7, elective colonoscopy once medically stabilized Continue IV iron therapy CT scan of the abdomen pelvis shows liver cirrhosis, splenomegaly. Pulmonary hypertension, B/L LL opacities. Enlargement of the uterus with a lobulated contour and scattered calcifications, possibly referable to fibroids. Genitourinary # Abreu catheter present draining clear urine # Complicated UTI Urine culture: E coli ESBL Meropenem 1 g IV q8 hrs UA shows signs of improved infection UC: No growth after 48 hours Nephrology # RUDDY on CKD likely due to hemodynamically mediated (d/t VMN) Per nephrology, renal function is improving, dialysis is being held at this time. Jose M catheter remain in its place due to thrombocytopenia until patient is more stabilized. # Hyperkalemia, resolved # Hypernatremia Monitor BMP Infectious disease # Possible Septic Shock due to UTI Meropenem 1 g IV BID Urine Culture: E. Coli ESBL Follow up UA shows improvement; Follow up UC shows no growth at 48 hours Vasopressin (holding off for now) Quadlevo discontinued Hem/onc # Acute hypovolemic shock likely due to Lower GI Bleed Managed w/ 8 PRBC transfusions, 4 FFPs, 5 Platelet transfusions D/c Sandostatin drip Protonix 40 mg IV BID Dopamine switched to Levophed d/t Tachycardia (08/29/25); Levophed discontinued in context of SBP> 90 # Pancytopenia Possibly associated to liver cirrhosis DVT prophylaxis: SCDs Peptic ulcer prophylaxis: Pantoprazole 40 mg IV BID Nutrition: TPN Lines -R PICC line 08/19 -Abreu catheter 08/19 -ET tube: 08/19 -Jose M catheter 08/19 [facility]: Propofol 10 mcg/kg/min Fentanyl 150 mcg/hr Vasopressin held Quadlevo discontinued Sandostatin discontinued Dopamine discontinued Levophed started (08/29/25) held Patient on vasopressin (holding off for now), Levophed discontinued in context of SBP> 90. Dopamine discontinued d/t elevated heart rate. Patient is in critical condition, all findings and care plan discussed with her son at bedside. Questions and concerns were thoroughly addressed, prognosis is poor. Critical care time 77 minutes excluding procedure. Code status discussed greater than 20 minutes: Full CODE STATUS. Family at bedside explained about the condition of the patient. Goals of care discussed with son on bedside. Plan discussed with Dr. Puga Plan discussed with: Son, Other (Nurses) My Orders My Orders Orders - KLAUDIA LOWE RESIDENT Procedure Category Date Status Time Albuterol Medneb PHA 09/04/25 In Process (Ventolin Medneb) 09:45 Cpap Trial For Am ORDERS 09/04/25 Transmitted 09:45 Complete Blood Count LAB 09/05/25 Verified 04:00 Comprehensive LAB 09/05/25 Verified Metabolic Panel 04:00 Abg W/ Co-Ox RT 09/05/25 Logged 04:00 Chest Portable XY 09/05/25 Logged 04:00 CC Plasma Assessment Blood Product Administration S: [id number] KLAUDIA LOWE RESIDENT Sep 04, 2025 12:59
[2025-09-04] MEDS: fentaNYL Drip 2500mCg/250mlNS 250 ML IV SCH (22:45)
--- NOTE | 2025-09-04 23:56 | DVHPN2 ---
Subjective DOS: 09/04/2025 Patient seen and examined at bedside. Sedated, intubated on mechanical ventilator. Overnight events reviewed. Reviewed: H&P Changes from previous H/P or p: No Changes Objective Vitals Vital Signs Date Time Temp Pulse Resp B/P (MAP) Pulse Ox O2 Delivery O2 Flow Rate FiO2 09/04/25 23:15 78 22 127/58 (81) 98 09/04/25 22:00 Mechanical Ventilator+ 30 30 09/04/25 20:00 98.0 98.0 Intake/Output Intake and Output 09/04/25 07:00 Intake Total 600.2 ml Output Total 3650 ml Balance -3049.8 ml Intake Oral 120 ml IV Total 126.2 ml Tube Feeding 354 ml Output Urine Total 3650 ml Exam Gen.: Patient lying in bed in medical ICU. Sedated, intubated on mechanical ventilator. Head: Normocephalic, atraumatic. Eyes: PERRLA. Ears: Normal external anatomy. Throat: Endotracheal tube and orogastric tube in place. Neck: Supple, trachea midline. Chest: Transmitted breath sounds bilaterally. Decreased air entry bilaterally. No wheezing. Bibasilar crackles. Cardiovascular: Positive S1, positive S2. Regular rate and rhythm. Abdomen: Positive bowel sounds in all 4 quadrants. Soft, nontender, nondistended. : Abreu in place. Normal external genitalia. Rectal: Deferred. Skin: Warm, dry. Intact. Extremities: 2+ radial pulses bilaterally. No lower extremity edema. Neuro: Sedated. General Appearance: Other (intubated and sedated) HEENT: Atraumatic Lungs: Other (On mechanical ventilator) Cardiovascular: Regular rate, Normal S1, Normal S2 Abdomen: Normal bowel sounds Medications Current Medications Medications Dose Ordered Sig/Erum Route Start Time Stop Time Status Last Admin Dose Admin Acetaminophen 650 mg Q6HP PRN PO 08/15/25 22:15 Sodium Chloride 10 ml QSHIFT@10,22 IV 08/19/25 22:00 09/04/25 21:52 10 ML Norepinephrine Bitartrate 32 mg/ Sodium Chloride 250 ml @ 0.938 mls/ hr Q24H IV 08/19/25 19:45 09/01/25 02:43 1.875 MLS/HR Pantoprazole Sodium 40 mg BID IV 08/22/25 10:00 09/04/25 21:53 40 MG Albumin Human 100 ml @ 100 mls/hr PRN PRN IV 08/22/25 17:00 Vasopressin 20 units/Sodium Chloride 100 ml @ 9 mls/hr Q11H7M IV 08/24/25 18:15 08/25/25 04:49 6 MLS/HR Midodrine 10 mg TID@0600,1200,1800 NG 08/25/25 18:00 Hold 09/04/25 05:37 10 MG Sodium Chloride 10 meq/Potassium Chloride 10 meq/ Calcium Gluconate 6.3 meq/Magnesium Sulfate 10 meq/ Multivitamins 10 ml/Potassium Phosphate 20 meq/ Amino Acids/ Dextrose/Purified Water 1,038.0938 ml @ 43 mls/hr Q24H9M IV 08/26/25 22:00 08/27/25 21:59 Cancel Enteral Nutritional Formula 1,000 ml 30ML/HR GT 08/26/25 15:00 09/04/25 18:39 1,000 ML Lactulose 30 ml DAILY PO 08/28/25 10:00 09/01/25 09:40 30 ML Meropenem 50 ml @ 17 mls/hr Q8H IV 08/31/25 18:00 09/04/25 17:48 17 MLS/HR Propofol 100 ml @ 4.431 mls/ hr [id number] IV 09/03/25 00:00 09/04/25 21:50 22.155 MLS/HR Albuterol 2.5 mg Q4HP PRN NEB 09/04/25 09:45 09/04/25 14:18 2.5 MG Fentanyl Citrate 250 ml @ 2.5 mls/hr Q24H IV 09/04/25 22:45 Laboratory Results Laboratory Tests 09/04/25 03:30 09/04/25 08:01 Chemistry Test 09/04/25 08:01 Albumin 3.3 g/dL (3.2-4.8) Calcium Level 9.0 mg/dL (8.7-10.4) Magnesium Level 2.1 mg/dL (1.6-2.6) Total Protein 6.5 g/dL (5.7-8.2) LFT Test 09/04/25 08:01 Alanine Aminotransferase (ALT) 11 U/L (7-40) Alkaline Phosphatase 97 U/L (46-116) Aspartate Amino Transferase (AST) 25 U/L (13-40) Total Bilirubin 1.4 mg/dL (0.2-1.0) H Urinalysis Test 08/16/25 04:10 08/24/25 15:20 Urine WBC Clumps Present /hpf (None Seen) Urine Creatinine 50.59 mg/dL (30.0-125.0) Urine Protein/Creatinine Ratio 0.61 Urine Sodium 46 mmol/L (40-220) Urine Total Protein 30.8 mg/dL (1-14) H Urine Color Yellow (Yellow) Urine Clarity Turbid (Clear) H Urine pH 5.5 (5.0-9.0) Urine Specific [place] 1.017 (1.001-1.035) Urine Protein Trace (Negative) H Urine Ketones Negative (Negative) Urine Blood Negative /uL (Negative) Urine Nitrite Negative (Negative) Urine Bilirubin Negative (Negative) Urine Urobilinogen 2 mg/dL (Negative) H Urine Leukocyte Esterase 2+ /uL (Negative) Urine RBC <1 /hpf (0 - 4) Urine Microscopic WBC 25 /HPF (0-5) H Urine Squamous Epithelial Cells Mod /hpf (<5) Urine Bacteria None seen /hpf (None Seen) Urine Hyaline Casts Few /lpf (0 - 2) Urine Mucus Few (None Seen) Urine Glucose Normal mg/dL (Normal) Blood Gas Results Test 09/04/25 08:00 Arterial Blood pH 7.460 (7.350-7.450) FiO2 % 30.0 Microbiology Microbiology Date/Time Source Procedure Growth Status 08/23/25 16:30 Urine - Abreu Port Urine Culture - Final Complete 08/18/25 10:55 Nose MRSA Screen - Final Complete Assessment/Plan Assessment/Plan Impression: Acute on chronic hypoxic respiratory failure On mechanical ventilator Pulmonary hypertension Congestive heart failure Morbid obesity Acute on chronic renal failure Pancytopenia Events: Patient was emergently intubated and placed on mechanical ventilator on 08/19/25 She was noted to have massive bloody bowel movement; had rapid transfusion of 2 units PRBC Continue vent support On AC mode; RR 22, VT 450, PEEP 5, FiO2 30% Taper FiO2 as tolerated Patient did not tolerate CPAP trial today. Sedated on Propofol, Fentanyl. On Precedex drip. ABG reviewed, compensated. Chest x-ray reveals unchanged pulmonary vascular congestion. Cardiomegaly. Devices in place. Follow up Cardiology recs for management of atrial fibrillation. Continue bronchodilators. Continue antibiotics Monitor blood pressure -midodrine for BP support Remains off pressors, monitor hemodynamics Nephrology recs appreciated Remove right subclavian vein Jose M catheter as platelets remain stable. No further bloody bowel movements. Monitor hemoglobin - currently stable. Protonix BID EGD reviewed, showed sliding-type hiatal hernia. S/p colonoscopy - showed diverticulosis and hemorrhoids. GI recs appreciated. Hemodialysis per Nephrology Nephrology recs appreciated Diurese with Lasix Monitor renal function. Monitor electrolytes. Supplement as necessary. Monitor ins and outs. Tube feeds for nutritional support Labs and imaging reviewed. Plan: S/p intubation on mechanical ventilator. On AC mode; RR 22, VT 450, PEEP 5, FiO2 30% Titrate FIO2 to keep O2 saturation above 90%. VAP bundle. Daily ABG and CXR while intubated Sedate for ventilator synchrony Pressors for hemodynamic support Titrate to keep mean arterial pressure greater than 65 mmHg Continue bronchodilators. Continue antibiotics Follow up Nephrology recs HD per Nephrology Diurese to euvolemia Monitor renal function. Monitor electrolytes. Supplement as necessary. Hyperkalemia resolved Monitor ins and outs. DVT prophylaxis. Prognosis: Poor given patient's multiple co-morbidities. Condition: Critical Rest of plan per hospitalist and other consultants. A total of 35 minutes of critical care time was spent reviewing the patient record, examining the patient, making a diagnostic and therapeutic plan, discussing this plan with the medical personnel, following up on diagnostic studies and following the patient for clinical stability excluding any and all procedures. At least 50% of this time was spent in direct, [id number] contact. Thank you, Dr. Longo, for allowing me to participate in this patient's care. Further recommendations will depend on the patient's clinical course. Please do not hesitate to contact me if you have any questions or concerns. This medical document was created using an electronic medical record system with [employer] system. Although these documentations are being carefully reviewed, there may still be some phonetic and typographical changes. The errors are purely typographical, due to imperfection on the software program, and do not reflect any compromise in the patient's medical care. Plan discussed with: Other (RYAN Ford) My Orders Orders - SILVIA RIVAS MD Procedure Category Date Status Time Fentanyl Drip PHA 09/04/25 In Process 2500mcg/250mlns 22:45 Rass Sedation Scale GILDARDO 09/04/25 In Process 22:37 Visit Coding Pulmonary Billing Provider: SILVIA RIVAS MD Date of Service if different f: Sep 04, 2025 Common Visit Codes: [id number] INP/OBS CARE(HIGH), [id number] CARE 30-74 MIN SILVIA RIVAS MD Sep 04, 2025 23:56
[2025-09-05] VITALS (100 sets, daily range): BP systolic 90–173; BP diastolic 32–76; PULSE 65–145; RESP 21–27; TEMP 97.9–99; O2SAT 93–100
[2025-09-05 03:31] LABS: Hematocrit 26.9 % (36.0-46.0); Hemoglobin 8.7 g/dL (12.2-16.2); Mean Corpuscular Hemoglobin 29.1 pg (28.0-32.0); Mean Corpuscular Volume 89.6 fL (80.0-100.0); Nucleated Red Blood Cells % 0.3 %
[2025-09-05 03:44] LABS: Albumin 3.2 g/dL (3.2-4.8); Alkaline Phosphatase 95 U/L (46-116); Anion Gap 13 (5-15); Calcium 8.8 mg/dL (8.7-10.4); Chloride 104 mmol/L (98-107); Potassium 3.6 mmol/L (3.5-5.1); Total Protein 6.3 g/dL (5.7-8.2)
[2025-09-05 03:47] LABS: Alanine Aminotransferase < 9 U/L (7-40); Bilirubin, Total 1.4 mg/dL (0.2-1.0); Carbon Dioxide 31 mmol/L (20-31); Glucose 111 mg/dL (74-106); Sodium 148 mmol/L (136-145)
[2025-09-05 03:53] LABS: BUN/Creatinine Ratio 16.5 (10.0-20.0); Blood Urea Nitrogen 17 mg/dL (9-23)
--- NOTE | 2025-09-05 04:41 | DVH ---
CHEST RADIOGRAPH INDICATION: intubated TECHNIQUE: Single frontal view of the chest was obtained COMPARISON: XY CHEST PORTABLE on DOS: 09/04/25, XY CHEST PORTABLE on DOS: 09/03/25, XY CHEST PORTABLE on DOS: 09/02/25, XY CHEST PORTABLE on DOS: 09/01/25, XY CHEST PORTABLE on DOS: 08/31/25 FINDINGS: Lines and Tubes: Slight interval advancement of the endotracheal tube such that the tip now projects 2.9 cm above the level of the dex. Remaining lines and tubes unchanged. Lungs: Moderate diffuse increased prominence of the pulmonary vasculature, right basilar pulmonary airspace disease and small bilateral pleural effusions. No pneumothorax. Cardiomediastinal contours: Cardiomegaly Bones: Unremarkable IMPRESSION: 1. Slight interval advancement of the endotracheal tube such that the tip now projects 2.9 cm above the level of the dex. Lines and tubes unchanged. 2. Stable appearing pulmonary vascular congestion, right basilar pulmonary airspace disease and small right pleural effusion. 3. Cardiomegaly.
[2025-09-05 07:19] LABS: Base Excess 4.9 mmol/L (-2.0-3.0)
[2025-09-05 12:26] LABS: Base Excess 8.4 mmol/L (-2.0-3.0)
--- NOTE | 2025-09-05 16:54 | DVHPNRES ---
Progress Note Date Seen: Sep 05, 2025 Resident Creating Document: KLAUDIA LOWE RESIDENT Has the PT tested + for MRSA If YES, has PT been informed?: No Medical Necessity Reason Pt with a Central, PICC or Fol: Yes The following are medically ne: PICC Line, Abreu Catheter Subjective Review of Systems Ms. Worthington is a 65 year old female with past medical history of HFpEF liver cirrhosis, chronic atrial fibrillation, anemia with multiple blood transfusions in the past, and pulmonary hypertension, who presented to [facility] via EMS due shortness of breath. As per her sons, the patient has had progressively worsening bilateral leg edema for the last month associated with worsening shortness of breath for two weeks. They state that she is compliant with her medications, however, every few months they have to take their mom to the hospital for similar symptoms, with most recent hospitalization in late May 2025. She was seen by her home health nurse on Friday (08/15/2025) night, who told the family to call EMS. As per records, on scene she was found to have a saturation of 90% on room air, she placed on 2 L NC with improvement to 92% and brought to the emergency department. On initial evaluation in the ER, she was afebrile, MAP within normal range, saturating adequately on 2L NC. She was found to have anasarca reaching up to her thighs. 12 lead EKG showed atrial fibrillation. Initial labs are significant for pancytopenia, hyperkalemia, BUN 84, creatinine 2.14, BNP 207, troponins negative, and lipase 178. UA is consistent with a UTI. Chest Xray significant for hazy opacities throughout the right lung, and stable cardiomediastinal enlargement. The patient was started on IV Lasix, hyperkalemia protocol, IV antibiotics, and of 1 PRBC and was admitted for further work up and management. The patient was evaluated by nephrology who initially recommended diuresis, albumin and low dose dopamine, and midodrine, however, due to progressively worsening kidney function, dialysis was recommended. On 08/18/2025 patient was found lethargic and disoriented, blood gas showed hypoxic and hypercapnic respiratory failure, she was started on BiPAP and transferred to the ICU. Mentation continued to deteriorate and required intubation for airway protection and respiratory insufficiency. Patient presented two large bloody bowel movements requiring emergent transfusion of 2 PRBCs and vasopressors. She was evaluated by gastroenterology who recommended use of PPI, octreotide, and transfusions as needed with endoscopy when stable. Prior medical history: HFrEF, Liver cirrhosis, Chronic Atrial Fibrillation, Anemia s/p multiple blood transfusions, and pulmonary hypertension Prior surgical history: 3 c-sections Social: Sons deny any previous drug, tobacco, or alcohol use. She recently moved to the area to live with her son, Dalia. 09/05/2025: Patient was seen at bedside. Patient failed CPAP trial yesterday due to low tidal volume, tachycardia, tachypnea. Patient was diuresing very well with output -2056. Holding off IV Lasix, discontinued meropenem. Repeat urine analysis ordered. Patient is day 17 of intubation, discussed tracheostomy option with family if CPAP trial fails. Patient's son, who is the POA demonstrated understanding, we will continue this discussion after CPAP trial tomorrow. Objective vital signs Vital Sign Date Time Temp Pulse Resp B/P (MAP) Pulse Ox O2 Delivery O2 Flow Rate FiO2 09/05/25 16:04 92 22 109/43 (65) 97 30 09/05/25 14:00 Mechanical Ventilator+ 09/05/25 07:15 98.8 98.8 Total Intake and Output 09/04/25 09/04/25 09/05/25 14:59 22:59 06:59 Intake Total 123.7 ml 82.72 ml 360.8 ml Output Total 1850 ml 775 ml Balance 123.7 ml -1767.28 ml -414.2 ml medications Current Medications Medications Dose Ordered Sig/Erum Route Start Time Stop Time Status Last Admin Dose Admin Acetaminophen 650 mg Q6HP PRN PO 08/15/25 22:15 Sodium Chloride 10 ml QSHIFT@10,22 IV 08/19/25 22:00 09/05/25 10:14 10 ML Norepinephrine Bitartrate 32 mg/ Sodium Chloride 250 ml @ 0.938 mls/ hr Q24H IV 08/19/25 19:45 09/01/25 02:43 1.875 MLS/HR Pantoprazole Sodium 40 mg BID IV 08/22/25 10:00 09/05/25 09:02 40 MG Albumin Human 100 ml @ 100 mls/hr PRN PRN IV 08/22/25 17:00 Vasopressin 20 units/Sodium Chloride 100 ml @ 9 mls/hr Q11H7M IV 08/24/25 18:15 08/25/25 04:49 6 MLS/HR Sodium Chloride 10 meq/Potassium Chloride 10 meq/ Calcium Gluconate 6.3 meq/Magnesium Sulfate 10 meq/ Multivitamins 10 ml/Potassium Phosphate 20 meq/ Amino Acids/ Dextrose/Purified Water 1,038.0938 ml @ 43 mls/hr Q24H9M IV 08/26/25 22:00 08/27/25 21:59 Cancel Enteral Nutritional Formula 1,000 ml 30ML/HR GT 08/26/25 15:00 09/04/25 18:39 1,000 ML Lactulose 30 ml DAILY PO 08/28/25 10:00 09/01/25 09:40 30 ML Propofol 100 ml @ 4.431 mls/ hr [id number] IV 09/03/25 00:00 09/05/25 09:02 13.293 MLS/HR Albuterol 2.5 mg Q4HP PRN NEB 09/04/25 09:45 09/04/25 14:18 2.5 MG Fentanyl Citrate 250 ml @ 2.5 mls/hr Q24H IV 09/04/25 22:45 Examination General: Patient intubated. Mildly sedated; Opens eyes spontaneously. HEENT: Pupils B/L equal and reactive to light. Normocephalic, atraumatic. Respiratory/pulmonary: Clear bilateral breath sounds. Cardiovascular: Tachycardia. Irregular heart rate Abdomen: Soft abdomen on palpation, normal bowel sounds Extremities: Warm bilateral extremities. B/L upper arm ecchymosis. Trace pitting edema in B/L ankles. Grade 2 pitting edema in B/L hands. Skin: Small partial thickness linear skin tears (healing with scabs) approximately 0.5X1 cm in abdominal folds, left arm and left lower leg, reduced from baseline. laboratory and microbiology Laboratory Tests 09/05/25 02:33 Test 09/05/25 02:33 Range/Units Serum Glucose 111 H 74-106 mg/dL Microbiology Date/Time Source Procedure Growth Status 08/23/25 16:30 Urine - Abreu Port Urine Culture - Final Complete 08/18/25 10:55 Nose MRSA Screen - Final Complete Problem List/Assessment/Plan Problem List/Assessment/Plan Neurology # Sedation, Analgesia Propofol 10 mcg/kg/hr Fentanyl 150 mcg/hr # Acute metabolic encephalopathy likely due to hyperammonemia Ammonia levels have normalized. Cardiovascular # Acute on chronic HFpEF heart failure Likely precipitated by fluid overload and sepsis Echocardiogram: LVEF 50%. mild mitral regurgitation. mild tricuspid regurgitation. mild to moderate pulmonic regurgitation Bumex drip, Furosemide 20 mg IV discontinued Jardiance, Furosemide, and carvedilol held at this time CXR on 09/01/2025 show increased right hemithorax pleural opacification. Reduce Furosemide 40 mg IV from b.i.d. dosing to once daily. Holding off IV Lasix # Chronic Atrial Fibrillation Amiodarone - held due to bradycardia # Severe Pulmonary Hypertension Sildenafil held Ambrisentan 5 mg held # Bradycardia Midodrine 10 mg TID Discontinued Dopamine 2 mcg d/t tachycardia # Septic shock (POA Unable to determine) Holding Levophed Respiratory # Ventilator Intubated (08/19/2025) On [facility] ventilation: AC-VC TV of 450ml, PEEP Of 8 and FiO2 of 30% # Acute hypoxic respiratory failure # Acute hypercapnic respiratory failure S/p intubation Blood gas show normalization of pH, pCO2, pO2 CPAP trial tomorrow # Pulmonary Edema with bilateral pleural effusions Chest xray: Stable appearing pulmonary edema and small bilateral pleural effusions. # Pneumonia, ruled out Azithromycin discontinued Gastrointestinal # Acute hypovolemic shock likely due to Lower GI Bleed # Segmental ischemic colitis or diverticular disease, possible 8 PRBC transfusions, 4 FFPs, 5 Platelet transfusions Stool occult positive, discontinued Sandostatin Protonix 40 mg IV BID Vasopressin (holding off for now) Quadlevo discontinued Dopamine switched to Levophed d/t Tachycardia; NS 250 cc bolus given H&H stable; continue monitoring Completed Bedside colonoscopy today. As per GI specialist, patient has diverticulosis, likely the source of GI bleed. No active bleed seen. # Liver cirrhosis likely due to fatty liver disease # Acute metabolic encephalopathy likely due to hyperammonemia # Hypoalbuminemia MELD score 26 Continue lactulose Monitor ammonia Albumin supplemented Holding off furosemide We will repeat CPAP trial tomorrow. # Cholelithaisis Abdominal US: The gallbladder wall measures 0.3 cm and is normal in size. Gallstones are noted. # 2 cm sliding type hiatal hernia # Mild gastritis EGD 08/26/2025: 1-2 cm sliding-type hiatal hernia with no significant erosive esophagitis, mild gastritis involving the antrum and body of the stomach with some linear gastric erosions GI recommended Protonix 40 mg b.i.d. IV, discontinue IV Sandostatin drip, continue to monitor labs and transfuse if hemoglobin drops below 7, elective colonoscopy once medically stabilized Continue IV iron therapy CT scan of the abdomen pelvis shows liver cirrhosis, splenomegaly. Pulmonary hypertension, B/L LL opacities. Enlargement of the uterus with a lobulated contour and scattered calcifications, possibly referable to fibroids. Genitourinary # Abreu catheter present draining clear urine # Complicated UTI Urine culture: E coli ESBL Discontinued Meropenem UA shows signs of improved infection UC: No growth after 48 hours Repeat urine analysis Nephrology # RUDDY on CKD likely due to hemodynamically mediated (d/t VMN) Per nephrology, renal function is improving, dialysis is being held at this time. Jose M catheter remain in its place due to thrombocytopenia until patient is more stabilized. # Hyperkalemia, resolved # Hypernatremia Monitor BMP Infectious disease # Sepsis d/t below (POA Unable to determine) # Possible Septic Shock due to below (POA Unable to determine) # Complicated ESBL UTI D/c'd Meropenem 1 g IV BID Urine Culture: E. Coli ESBL Follow up UA shows improvement; Follow up UC shows no growth at 48 hours Vasopressin (holding off for now) Quadlevo discontinued Hem/onc # Acute hypovolemic shock likely due to Lower GI Bleed Managed w/ 8 PRBC transfusions, 4 FFPs, 5 Platelet transfusions D/c Sandostatin drip Protonix 40 mg IV BID Dopamine switched to Levophed d/t Tachycardia (08/29/25); Levophed discontinued in context of SBP> 90 # Pancytopenia Possibly associated to liver cirrhosis DVT prophylaxis: SCDs Peptic ulcer prophylaxis: Pantoprazole 40 mg IV BID Nutrition: TPN Lines -R PICC line 08/19 -Abreu catheter 08/19 -ET tube: 08/19 -Jose M catheter 08/19 Drips during [facility] ventilation: Propofol 10 mcg/kg/min Fentanyl 150 mcg/hr Vasopressin held Quadlevo discontinued Sandostatin discontinued Dopamine discontinued Levophed started (08/29/25) held Patient on vasopressin (holding off for now), Levophed discontinued in context of SBP> 90. Dopamine discontinued d/t elevated heart rate. Patient is in critical condition, all findings and care plan discussed with her son at bedside. Questions and concerns were thoroughly addressed, prognosis is poor. Critical care time 67 minutes excluding procedure. Code status discussed greater than 20 minutes: Full CODE STATUS. Family at bedside explained about the condition of the patient. Goals of care discussed with son on bedside. Plan discussed with Dr. Gallo Plan discussed with: Son, Other (nurses) My Orders My Orders Orders - KLAUDIA LOWE Procedure Category Date Status Time Urinalysis LAB 09/05/25 Logged 16:15 CC Plasma Assessment Blood Product Administration S: [id number] Visit Coding STANDARD RES Billing Provider: ALINA GALLO MD Date of Service if different f: Sep 05, 2025 Common Visit Codes: 63635-OFWFGRBO CARE 30-74 MIN KLAUDIA LOWE Sep 05, 2025 16:54 ALINA GALLO MD Sep 06, 2025 16:16
--- NOTE | 2025-09-05 18:23 | DVHPN2 ---
Progress Note - Dictate Date Seen: Sep 05, 2025 Has the PT tested + for MRSA If YES, has PT been informed?: No Medical Necessity Reason Pt with a Central, PICC or Fol: Yes The following are medically ne: PICC Line, Abreu Catheter Subjective Failed CPAP trial Sedated, intubated on mechanical ventilator. No active GI bleeding, EGD was negative, small hiatal hernia mild gastritis no bleeding Colonoscopy showed diverticulosis vital signs Vital Sign Date Time Temp Pulse Resp B/P (MAP) Pulse Ox O2 Delivery O2 Flow Rate FiO2 09/05/25 18:00 70 09/05/25 18:00 22 99 Mechanical Ventilator+ 30 30 09/05/25 16:04 109/43 (65) 09/05/25 07:15 98.8 98.8 Total Intake and Output 09/04/25 09/04/25 09/05/25 15:00 23:00 07:00 Intake Total 126.2 ml 87.82 ml 360.865 ml Output Total 1850 ml 775 ml Balance 126.2 ml -1762.18 ml -414.135 ml medications Current Medications Medications Dose Ordered Sig/Erum Route Start Time Stop Time Status Last Admin Dose Admin Acetaminophen 650 mg Q6HP PRN PO 08/15/25 22:15 Sodium Chloride 10 ml QSHIFT@10,22 IV 08/19/25 22:00 09/05/25 10:14 10 ML Norepinephrine Bitartrate 32 mg/ Sodium Chloride 250 ml @ 0.938 mls/ hr Q24H IV 08/19/25 19:45 09/01/25 02:43 1.875 MLS/HR Pantoprazole Sodium 40 mg BID IV 08/22/25 10:00 09/05/25 09:02 40 MG Albumin Human 100 ml @ 100 mls/hr PRN PRN IV 08/22/25 17:00 Vasopressin 20 units/Sodium Chloride 100 ml @ 9 mls/hr Q11H7M IV 08/24/25 18:15 08/25/25 04:49 6 MLS/HR Sodium Chloride 10 meq/Potassium Chloride 10 meq/ Calcium Gluconate 6.3 meq/Magnesium Sulfate 10 meq/ Multivitamins 10 ml/Potassium Phosphate 20 meq/ Amino Acids/ Dextrose/Purified Water 1,038.0938 ml @ 43 mls/hr Q24H9M IV 08/26/25 22:00 12/13/25 21:59 Cancel Enteral Nutritional Formula 1,000 ml 30ML/HR GT 08/26/25 15:00 09/04/25 18:39 1,000 ML Lactulose 30 ml DAILY PO 08/28/25 10:00 09/01/25 09:40 30 ML Propofol 100 ml @ 4.431 mls/ hr [id number] IV 09/03/25 00:00 09/05/25 17:42 13.293 MLS/HR Albuterol 2.5 mg Q4HP PRN NEB 09/04/25 09:45 09/04/25 14:18 2.5 MG Fentanyl Citrate 250 ml @ 2.5 mls/hr Q24H IV 09/04/25 22:45 objective General: Obese, afebrile, palor, mucosae are moist Cardiovascular: Regular S1 and S2. No murmurs, gallops or rubs. No JVD elevation. Bilateral pedal edema. Respiratory: Decreased breath sounds heard on auscultation, intubated Abdomen: Soft, nontender, nondistended, hypoactive bowel sounds, no rebound tenderness, no organomegaly, no masses Genitourinary: Abreu catheter seen Neurological: Pupils are isocoric and reactive. laboratory and microbiology Laboratory Tests 09/05/25 02:33 Test 09/05/25 02:33 Range/Units Serum Glucose 111 H 74-106 mg/dL Problems(with codes): (1) CHF exacerbation (2) Rectal bleeding (3) Thrombocytopenia (4) Anemia (5) Acute renal failure (6) Acute dyspnea (7) Hypoxic respiratory failure Prognosis PLAN Patient failed CPAP trial yesterday due to low tidal volume, tachycardia, tachypnea. Patient was diuresing very well with output -2056. Holding off IV Lasix, discontinued meropenem. Repeat urine analysis ordered. Patient is day 17 of intubation, discussed tracheostomy option with family if CPAP trial fails. Patient's son, who is the POA demonstrated understanding, we will continue this discussion after CPAP trial tomorrow. CONTINUE TUBE FEEDINGS AND NUTRITIONAL SUPPORT Plan discussed with: Other (Nurse) CC Plasma Assessment Blood Product Administration S: [id number] STEPHANIE CLAYTON MD Sep 05, 2025 18:23
[2025-09-06] VITALS (97 sets, daily range): BP systolic 82–160; BP diastolic 33–107; PULSE 65–144; RESP 12–30; TEMP 97.9–99.1; O2SAT 95–100
[2025-09-06 04:41] LABS: Hemoglobin 8.9 g/dL (12.2-16.2)
[2025-09-06 04:43] LABS: Hematocrit 26.9 % (36.0-46.0); Mean Corpuscular Hemoglobin 29.1 pg (28.0-32.0); Mean Corpuscular Volume 87.8 fL (80.0-100.0)
[2025-09-06 05:01] LABS: Alkaline Phosphatase 86 U/L (46-116); Anion Gap 9 (5-15); BUN/Creatinine Ratio 20.5 (10.0-20.0); Blood Urea Nitrogen 18 mg/dL (9-23); Calcium 8.9 mg/dL (8.7-10.4); Potassium 3.5 mmol/L (3.5-5.1); Total Protein 6.3 g/dL (5.7-8.2)
[2025-09-06 05:05] LABS: Alanine Aminotransferase < 9 U/L (7-40); Albumin 3.2 g/dL (3.2-4.8); Bilirubin, Total 1.4 mg/dL (0.2-1.0); Carbon Dioxide 32 mmol/L (20-31); Chloride 108 mmol/L (98-107); Glucose 116 mg/dL (74-106); Sodium 149 mmol/L (136-145)
[2025-09-06 05:11] LABS: Urine Protein, UAD 1+ (Negative)
--- NOTE | 2025-09-06 05:25 | DVH ---
CHEST RADIOGRAPH INDICATION: Intubation TECHNIQUE: Single frontal view of the chest was obtained COMPARISON: XY CHEST PORTABLE on DOS: 09/05/25. FINDINGS: Lines and Tubes: The tip of the endotracheal tube is not well visualized and may be obscured by the enteric tube. The endotracheal tube is seen to the level of the 1st thoracic vertebral body, about 7.8 cm above the dex. Attention on follow-up is recommended. There is a left upper extremity PICC with its tip terminating in the superior vena cava. Lungs: Bilateral pulmonary opacities are similar to prior study. Pleura: Similar bilateral pleural effusions. No pneumothorax. Cardiomediastinal contours: Cardiomegaly. Bones: No acute osseous abnormality. IMPRESSION: 1. Tip of the endotracheal tube not visualized and may be obscured by the endotracheal tube. Attention on follow-up recommended. 2. Similar bilateral opacities which may reflect congestion. Pneumonia not excluded. 3. Bilateral pleural effusions similar to prior study. 4. Cardiomegaly.
[2025-09-06 06:55] LABS: Anisocytosis Slight; Total Cells Counted 100.0 (100)
[2025-09-06 07:02] LABS: Base Excess 5.3 mmol/L (-2.0-3.0)
--- NOTE | 2025-09-06 13:50 | DVHPN2 ---
Progress Note - Dictate Date Seen: Sep 06, 2025 Has the PT tested + for MRSA If YES, has PT been informed?: No Medical Necessity Reason Pt with a Central, PICC or Fol: Yes The following are medically ne: PICC Line, Abreu Catheter Subjective Patient was on CPAP trial for 3 hours Patient became tachypneic and the trial was ended and placed back on ventilator No active GI bleeding, normal brown stool, hemoglobin stable at 8.9 Patient has mild neutropenia EGD was negative, small hiatal hernia mild gastritis no bleeding Colonoscopy showed diverticulosis vital signs Vital Sign Date Time Temp Pulse Resp B/P (MAP) Pulse Ox O2 Delivery O2 Flow Rate FiO2 09/06/25 13:15 73 22 126/66 (86) 98 30 09/06/25 12:00 Mechanical Ventilator+ 09/06/25 07:00 98.8 98.8 Total Intake and Output 09/05/25 09/05/25 09/06/25 15:00 23:00 07:00 Intake Total 49.823 ml 180 ml 378.665 ml Output Total 850 ml 650 ml Balance 49.823 ml -670 ml -271.335 ml medications Current Medications Medications Dose Ordered Sig/Erum Route Start Time Stop Time Status Last Admin Dose Admin Acetaminophen 650 mg Q6HP PRN PO 08/15/25 22:15 Sodium Chloride 10 ml QSHIFT@10,22 IV 08/19/25 22:00 09/06/25 09:29 10 ML Norepinephrine Bitartrate 32 mg/ Sodium Chloride 250 ml @ 0.938 mls/ hr Q24H IV 08/19/25 19:45 09/01/25 02:43 1.875 MLS/HR Pantoprazole Sodium 40 mg BID IV 08/22/25 10:00 09/06/25 09:27 40 MG Albumin Human 100 ml @ 100 mls/hr PRN PRN IV 08/22/25 17:00 Vasopressin 20 units/Sodium Chloride 100 ml @ 9 mls/hr Q11H7M IV 08/24/25 18:15 08/25/25 04:49 6 MLS/HR Sodium Chloride 10 meq/Potassium Chloride 10 meq/ Calcium Gluconate 6.3 meq/Magnesium Sulfate 10 meq/ Multivitamins 10 ml/Potassium Phosphate 20 meq/ Amino Acids/ Dextrose/Purified Water 1,038.0938 ml @ 43 mls/hr Q24H9M IV 08/26/25 22:00 08/27/25 21:59 Cancel Enteral Nutritional Formula 1,000 ml 30ML/HR GT 08/26/25 15:00 09/04/25 18:39 1,000 ML Lactulose 30 ml DAILY PO 08/28/25 10:00 09/06/25 09:28 30 ML Propofol 100 ml @ 4.431 mls/ hr [id number] IV 09/03/25 00:00 09/06/25 05:09 17.724 MLS/HR Albuterol 2.5 mg Q4HP PRN NEB 09/04/25 09:45 09/04/25 14:18 2.5 MG Fentanyl Citrate 250 ml @ 2.5 mls/hr Q24H IV 09/04/25 22:45 objective General: Obese, afebrile, palor, mucosae are moist Cardiovascular: Regular S1 and S2. No murmurs, gallops or rubs. No JVD elevation. Bilateral pedal edema. Respiratory: Decreased breath sounds heard on auscultation, intubated Abdomen: Soft, nontender, nondistended, hypoactive bowel sounds, no rebound tenderness, no organomegaly, no masses Genitourinary: Abreu catheter seen Neurological: Pupils are isocoric and reactive. laboratory and microbiology Laboratory Tests 09/06/25 03:48 Test 09/06/25 03:48 Range/Units Serum Glucose 116 H 74-106 mg/dL Problems(with codes): (1) Rectal bleeding (2) Thrombocytopenia (3) Acute hyperkalemia (4) CHF exacerbation (5) Acute renal failure (6) Anasarca Prognosis Plan Continue attempts at CPAP trial Continue supportive care from GI point of view Blood thinners are on hold Patient on IV antibiotics Monitor labs Plan discussed with: Other (ICU nurse) CC Plasma Assessment Blood Product Administration S: [id number] STEPHANIE CLAYTON MD Sep 06, 2025 13:50
--- NOTE | 2025-09-06 17:34 | DVHPNRES ---
Progress Note Date Seen: Sep 06, 2025 Resident Creating Document: KLAUDIA LOWE RESIDENT Has the PT tested + for MRSA If YES, has PT been informed?: No Medical Necessity Reason Pt with a Central, PICC or Fol: Yes The following are medically ne: PICC Line, Abreu Catheter Subjective Review of Systems Ms. Worthington is a 65 year old female with past medical history of HFpEF liver cirrhosis, chronic atrial fibrillation, anemia with multiple blood transfusions in the past, and pulmonary hypertension, who presented to [facility] via EMS due shortness of breath. As per her sons, the patient has had progressively worsening bilateral leg edema for the last month associated with worsening shortness of breath for two weeks. They state that she is compliant with her medications, however, every few months they have to take their mom to the hospital for similar symptoms, with most recent hospitalization in late May 2025. She was seen by her home health nurse on Friday (08/15/2025) night, who told the family to call EMS. As per records, on scene she was found to have a saturation of 90% on room air, she placed on 2 L NC with improvement to 92% and brought to the emergency department. On initial evaluation in the ER, she was afebrile, MAP within normal range, saturating adequately on 2L NC. She was found to have anasarca reaching up to her thighs. 12 lead EKG showed atrial fibrillation. Initial labs are significant for pancytopenia, hyperkalemia, BUN 84, creatinine 2.14, BNP 207, troponins negative, and lipase 178. UA is consistent with a UTI. Chest Xray significant for hazy opacities throughout the right lung, and stable cardiomediastinal enlargement. The patient was started on IV Lasix, hyperkalemia protocol, IV antibiotics, and of 1 PRBC and was admitted for further work up and management. The patient was evaluated by nephrology who initially recommended diuresis, albumin and low dose dopamine, and midodrine, however, due to progressively worsening kidney function, dialysis was recommended. On 08/18/2025 patient was found lethargic and disoriented, blood gas showed hypoxic and hypercapnic respiratory failure, she was started on BiPAP and transferred to the ICU. Mentation continued to deteriorate and required intubation for airway protection and respiratory insufficiency. Patient presented two large bloody bowel movements requiring emergent transfusion of 2 PRBCs and vasopressors. She was evaluated by gastroenterology who recommended use of PPI, octreotide, and transfusions as needed with endoscopy when stable. Prior medical history: HFrEF, Liver cirrhosis, Chronic Atrial Fibrillation, Anemia s/p multiple blood transfusions, and pulmonary hypertension Prior surgical history: 3 c-sections Social: Sons deny any previous drug, tobacco, or alcohol use. She recently moved to the area to live with her son, Dalia. 09/05/2025: Patient was seen at bedside. Patient failed CPAP trial yesterday due to low tidal volume, tachycardia, tachypnea. Patient was diuresing very well with output -2056. Holding off IV Lasix, discontinued meropenem. Repeat urine analysis ordered. Patient is day 17 of intubation, discussed tracheostomy option with family if CPAP trial fails. Patient's son, who is the POA demonstrated understanding, we will continue this discussion after CPAP trial tomorrow. 09/06/2025: Today, CPAP trial stopped after 3-1/2 hours due to tachypnea, low tidal volume and accessory muscle use. Labs show elevated sodium, ordered free water. IV spironolactone before CPAP trial in morning tomorrow. Objective vital signs Vital Sign Date Time Temp Pulse Resp B/P (MAP) Pulse Ox O2 Delivery O2 Flow Rate FiO2 09/06/25 15:57 94 22 96/53 (67) 96 30 09/06/25 14:00 Mechanical Ventilator+ 09/06/25 12:15 97.9 97.9 Total Intake and Output 09/05/25 09/05/25 09/06/25 15:00 23:00 07:00 Intake Total 49.823 ml 180 ml 378.665 ml Output Total 850 ml 650 ml Balance 49.823 ml -670 ml -271.335 ml medications Current Medications Medications Dose Ordered Sig/Erum Route Start Time Stop Time Status Last Admin Dose Admin Acetaminophen 650 mg Q6HP PRN PO 08/15/25 22:15 Sodium Chloride 10 ml QSHIFT@10,22 IV 08/19/25 22:00 09/06/25 09:29 10 ML Norepinephrine Bitartrate 32 mg/ Sodium Chloride 250 ml @ 0.938 mls/ hr Q24H IV 08/19/25 19:45 09/01/25 02:43 1.875 MLS/HR Pantoprazole Sodium 40 mg BID IV 08/22/25 10:00 09/06/25 09:27 40 MG Albumin Human 100 ml @ 100 mls/hr PRN PRN IV 08/22/25 17:00 Vasopressin 20 units/Sodium Chloride 100 ml @ 9 mls/hr Q11H7M IV 08/24/25 18:15 08/25/25 04:49 6 MLS/HR Sodium Chloride 10 meq/Potassium Chloride 10 meq/ Calcium Gluconate 6.3 meq/Magnesium Sulfate 10 meq/ Multivitamins 10 ml/Potassium Phosphate 20 meq/ Amino Acids/ Dextrose/Purified Water 1,038.0938 ml @ 43 mls/hr Q24H9M IV 08/26/25 22:00 08/27/25 21:59 Cancel Enteral Nutritional Formula 1,000 ml 30ML/HR GT 08/26/25 15:00 09/04/25 18:39 1,000 ML Lactulose 30 ml DAILY PO 08/28/25 10:00 09/06/25 09:28 30 ML Propofol 100 ml @ 4.431 mls/ hr [id number] IV 09/03/25 00:00 09/06/25 05:09 17.724 MLS/HR Albuterol 2.5 mg Q4HP PRN NEB 09/04/25 09:45 09/04/25 14:18 2.5 MG Fentanyl Citrate 250 ml @ 2.5 mls/hr Q24H IV 09/04/25 22:45 Purified Water 100 ml Q6HR GT 09/06/25 18:00 Spironolactone 50 mg DAILY PO 09/07/25 10:00 Examination General: Patient intubated. A&O x3; Opens eyes spontaneously. HEENT: Pupils B/L equal and reactive to light. Normocephalic, atraumatic. Respiratory/pulmonary: Clear bilateral breath sounds. Cardiovascular: Irregular heart rate Abdomen: Soft abdomen on palpation, normal bowel sounds Extremities: Warm bilateral extremities. B/L upper arm ecchymosis. Trace pitting edema in B/L ankles, left hand. Grade 2 pitting edema in right hands. Skin: Small partial thickness linear skin tears (healing with scabs) approximately 0.5X1 cm in abdominal folds, left arm and left lower leg, reduced from baseline. Neurological: Patient is A&O x3, following commands. Motor strength / laboratory and microbiology Laboratory Tests 09/06/25 03:48 Test 09/06/25 03:48 Range/Units Serum Glucose 116 H 74-106 mg/dL Microbiology Date/Time Source Procedure Growth Status 08/23/25 16:30 Urine - Abreu Port Urine Culture - Final Complete 08/18/25 10:55 Nose MRSA Screen - Final Complete Problem List/Assessment/Plan Problem List/Assessment/Plan Neurology # Sedation, Analgesia Propofol 10 mcg/kg/hr Fentanyl 150 mcg/hr # Acute metabolic encephalopathy likely due to hyperammonemia Ammonia levels have normalized. Cardiovascular # Acute on chronic HFpEF heart failure Likely precipitated by fluid overload and sepsis Echocardiogram: LVEF 50%. mild mitral regurgitation. mild tricuspid regurgitation. mild to moderate pulmonic regurgitation Bumex drip, Furosemide 20 mg IV discontinued Jardiance, Furosemide, and carvedilol held at this time CXR on 09/01/2025 show increased right hemithorax pleural opacification. Reduce Furosemide 40 mg IV from b.i.d. dosing to once daily. Holding off IV Lasix # Chronic Atrial Fibrillation Amiodarone - held due to bradycardia # Severe Pulmonary Hypertension Sildenafil held Ambrisentan 5 mg held # Bradycardia Midodrine 10 mg TID Discontinued Dopamine 2 mcg d/t tachycardia # Septic shock (POA Unable to determine) Holding Levophed Respiratory # Ventilator Intubated (08/19/2025) On [facility] ventilation: AC-VC TV of 450ml, PEEP Of 8 and FiO2 of 30% # Acute hypoxic respiratory failure # Acute hypercapnic respiratory failure S/p intubation Blood gas show normalization of pH, pCO2, pO2 Failed CPAP trial due to tachypnea, low tidal volume and accessory muscle use. CPAP trial tomorrow # Pulmonary Edema with bilateral pleural effusions Chest xray: Stable appearing pulmonary edema and small bilateral pleural effusions. # Pneumonia, ruled out Azithromycin discontinued Gastrointestinal # Acute hypovolemic shock likely due to Lower GI Bleed # Segmental ischemic colitis or diverticular disease, possible 8 PRBC transfusions, 4 FFPs, 5 Platelet transfusions Stool occult positive, discontinued Sandostatin Protonix 40 mg IV BID Vasopressin (holding off for now) Quadlevo discontinued Dopamine switched to Levophed d/t Tachycardia; NS 250 cc bolus given H&H stable; continue monitoring Completed Bedside colonoscopy today. As per GI specialist, patient has diverticulosis, likely the source GI bleed. No active bleed seen. # Liver cirrhosis likely due to fatty liver disease # Acute metabolic encephalopathy likely due to hyperammonemia # Hypoalbuminemia MELD score 26 Continue lactulose Monitor ammonia Albumin supplemented Holding off furosemide Ordered spironolactone Repeat CPAP trial tomorrow. # Cholelithaisis Abdominal US: The gallbladder wall measures 0.3 cm and is normal in size. Gallstones are noted. # 2 cm sliding type hiatal hernia # Mild gastritis EGD 08/26/2025: 1-2 cm sliding-type hiatal hernia with no significant erosive esophagitis, mild gastritis involving the antrum and body of the stomach with some linear gastric erosions GI recommended Protonix 40 mg b.i.d. IV, discontinue IV Sandostatin drip, continue to monitor labs and transfuse if hemoglobin drops below 7, elective colonoscopy once medically stabilized Continue IV iron therapy CT scan of the abdomen pelvis shows liver cirrhosis, splenomegaly. Pulmonary hypertension, B/L LL opacities. Enlargement of the uterus with a lobulated contour and scattered calcifications, possibly referable to fibroids. Genitourinary # Abreu catheter present draining clear urine # Complicated UTI Urine culture: E coli ESBL Discontinued Meropenem UA shows signs of improved infection UC: No growth after 48 hours Urine analysis from 09/06/25 negative for UTI Nephrology # RUDDY on CKD likely due to hemodynamically mediated (d/t VMN) Per nephrology, renal function is improving, dialysis is being held at this time. Jose M catheter remain in its place due to thrombocytopenia until patient is more stabilized. # Hyperkalemia, resolved # Hypernatremia Monitor BMP Free water ordered Infectious disease # Sepsis d/t below (POA Unable to determine) # Possible Septic Shock due to below (POA Unable to determine) # Complicated ESBL UTI D/c'd Meropenem 1 g IV BID Urine Culture: E. Coli ESBL Follow up UA shows improvement; Follow up UC shows no growth at 48 hours Vasopressin (holding off for now) Quadlevo discontinued Hem/onc # Acute hypovolemic shock likely due to Lower GI Bleed Managed w/ 8 PRBC transfusions, 4 FFPs, 5 Platelet transfusions D/c Sandostatin drip Protonix 40 mg IV BID Dopamine switched to Levophed d/t Tachycardia (08/29/25); Levophed discontinued in context of SBP> 90 # Pancytopenia Possibly associated to liver cirrhosis Endocrinology # Morbid Obesity BMI 57.4 DVT prophylaxis: SCDs Peptic ulcer prophylaxis: Pantoprazole 40 mg IV BID Nutrition: TPN Lines -R PICC line 08/19 -Abreu catheter 08/19 -ET tube: 08/19 -Jose M catheter 08/19 Drips during [facility] ventilation: Propofol 10 mcg/kg/min Fentanyl 150 mcg/hr Vasopressin held Quadlevo discontinued Sandostatin discontinued Dopamine discontinued Levophed started (08/29/25) held Patient on vasopressin (holding off for now), Levophed discontinued in context of SBP> 90. Dopamine discontinued d/t elevated heart rate. Patient is in critical condition, all findings and care plan discussed with her son at bedside. Questions and concerns were thoroughly addressed, prognosis is poor. Critical care time 92 minutes including cpap trial excluding procedure. Code status discussed greater than 20 minutes: Full CODE STATUS. Family at bedside explained about the condition of the patient. Goals of care discussed with son on bedside. Plan discussed with Dr. Gallo Plan discussed with: Son, Other (nurses) My Orders My Orders Orders - KLAUDIA LOWE RESIDENT Procedure Category Date Status Time Complete Blood Count LAB 09/07/25 Verified 04:00 Comprehensive LAB 09/07/25 Verified Metabolic Panel 04:00 Ammonia LAB 09/07/25 Verified 04:00 Chest Portable XY 09/07/25 Logged 04:00 Abg W/ Co-Ox RT 09/07/25 Logged 04:00 CC Plasma Assessment Blood Product Administration S: 1245 Visit Coding STANDARD RES Billing Provider: ALINA GALLO MD Date of Service if different f: Sep 06, 2025 Common Visit Codes: 80261-TBFFLOEC CARE 30-74 MIN, 72486-XJIZPSPA CARE-EACH +30MIN KLAUDIA LOWE Sep 06, 2025 17:34 ALINA GALLO MD Sep 07, 2025 13:57
[2025-09-06] MEDS: SPIRONOLACTONE 25 MG TAB PO ONE (17:48)
[2025-09-06] MEDS: FREE WATER GT SCH (17:48)
[2025-09-06] MEDS: FUROSEMIDE 20 MG/2 ML VIAL IV ONE (17:48)
[2025-09-07] VITALS (103 sets, daily range): BP systolic 82–146; BP diastolic 28–92; PULSE 63–182; RESP 12–66; TEMP 97.8–99; O2SAT 92–100
[2025-09-07 03:53] LABS: Hematocrit 25.8 % (36.0-46.0); Hemoglobin 8.8 g/dL (12.2-16.2); Mean Corpuscular Hemoglobin 29.8 pg (28.0-32.0); Mean Corpuscular Volume 88.0 fL (80.0-100.0)
[2025-09-07 04:12] LABS: Alkaline Phosphatase 82 U/L (46-116); Anion Gap 9 (5-15); BUN/Creatinine Ratio 19.8 (10.0-20.0); Blood Urea Nitrogen 16 mg/dL (9-23); Total Protein 6.1 g/dL (5.7-8.2)
[2025-09-07 04:18] LABS: Carbon Dioxide 33 mmol/L (20-31); Chloride 108 mmol/L (98-107); Glucose 110 mg/dL (74-106); Potassium 3.3 mmol/L (3.5-5.1); Sodium 150 mmol/L (136-145)
[2025-09-07 04:19] LABS: Alanine Aminotransferase < 9 U/L (7-40); Albumin 3.1 g/dL (3.2-4.8); Bilirubin, Total 1.4 mg/dL (0.2-1.0); Calcium 8.7 mg/dL (8.7-10.4)
[2025-09-07 05:23] LABS: Anisocytosis Slight; Total Cells Counted 100.0 (100)
[2025-09-07] MEDS: POTASSIUM CHL 20MEQ/100ML 100 ML IV SCH (05:23)
--- NOTE | 2025-09-07 05:43 | DVH ---
CHEST RADIOGRAPH INDICATION: Intubated TECHNIQUE: Single frontal view of the chest was obtained COMPARISON: XY CHEST PORTABLE on DOS: 09/06/25, XY CHEST PORTABLE on DOS: 09/05/25, XY CHEST PORTABLE on DOS: 09/04/25, XY CHEST PORTABLE on DOS: 09/03/25, XY CHEST PORTABLE on DOS: 09/02/25 FINDINGS: Lines and Tubes: Unchanged. Lungs: Diffuse increased prominence of the pulmonary vasculature and small bilateral pleural effusions. No pneumothorax. Cardiomediastinal contours: Cardiomegaly. Bones: Unremarkable IMPRESSION: 1. Cardiomegaly and pulmonary vascular congestion. 2. Lines and tubes unchanged.
--- NOTE | 2025-09-07 07:13 | ECG ---
[facility] Test Date: 2025-09-03 Test Time: 22:36:27 Pat Name: RAIZA TUCKER Department: ICU Room: 0201T Gender: F [employer] Pl[employer] Inspector: RYAN : 1960 Requested By: MELINA LAURENT Order Number: [id number] Reading MD: Dalton Zhang Measurements Intervals Rumely Rate: 166 P: 0 AL: 0 QRS: 150 QRSD: 105 T: 202 QT: 277 QTc: 461 Interpretive Statements Atrial fibrillation with rapid V-rate Probable right ventricular hypertrophy Repolarization abnormality, prob rate related Electronically Signed On 09-09-2025 10:34:17 PST by Dalton Zhang Please click the below link to view image of tracing.
[2025-09-07] MEDS: POTASSIUM CHL 20MEQ/100ML 100 ML IV ONE (07:15)
[2025-09-07 09:29] LABS: Base Excess 5.1 mmol/L (-2.0-3.0)
--- NOTE | 2025-09-07 16:32 | DVHPNRES ---
Progress Note Date Seen: Sep 07, 2025 Resident Creating Document: KLAUDIA LOWE RESIDENT Has the PT tested + for MRSA If YES, has PT been informed?: No Medical Necessity Reason Pt with a Central, PICC or Fol: Yes The following are medically ne: PICC Line, Abreu Catheter Subjective Review of Systems Ms. Worthington is a 65 year old female with past medical history of HFpEF liver cirrhosis, chronic atrial fibrillation, anemia with multiple blood transfusions in the past, and pulmonary hypertension, who presented to [facility] via EMS due shortness of breath. As per her sons, the patient has had progressively worsening bilateral leg edema for the last month associated with worsening shortness of breath for two weeks. They state that she is compliant with her medications, however, every few months they have to take their mom to the hospital for similar symptoms, with most recent hospitalization in late May 2025. She was seen by her home health nurse on Friday (08/15/2025) night, who told the family to call EMS. As per records, on scene she was found to have a saturation of 90% on room air, she placed on 2 L NC with improvement to 92% and brought to the emergency department. On initial evaluation in the ER, she was afebrile, MAP within normal range, saturating adequately on 2L NC. She was found to have anasarca reaching up to her thighs. 12 lead EKG showed atrial fibrillation. Initial labs are significant for pancytopenia, hyperkalemia, BUN 84, creatinine 2.14, BNP 207, troponins negative, and lipase 178. UA is consistent with a UTI. Chest Xray significant for hazy opacities throughout the right lung, and stable cardiomediastinal enlargement. The patient was started on IV Lasix, hyperkalemia protocol, IV antibiotics, and of 1 PRBC and was admitted for further work up and management. The patient was evaluated by nephrology who initially recommended diuresis, albumin and low dose dopamine, and midodrine, however, due to progressively worsening kidney function, dialysis was recommended. On 08/18/2025 patient was found lethargic and disoriented, blood gas showed hypoxic and hypercapnic respiratory failure, she was started on BiPAP and transferred to the ICU. Mentation continued to deteriorate and required intubation for airway protection and respiratory insufficiency. Patient presented two large bloody bowel movements requiring emergent transfusion of 2 PRBCs and vasopressors. She was evaluated by gastroenterology who recommended use of PPI, octreotide, and transfusions as needed with endoscopy when stable. Prior medical history: HFrEF, Liver cirrhosis, Chronic Atrial Fibrillation, Anemia s/p multiple blood transfusions, and pulmonary hypertension Prior surgical history: 3 c-sections Social: Sons deny any previous drug, tobacco, or alcohol use. She recently moved to the area to live with her son, Dalia. 09/05/2025: Patient was seen at bedside. Patient failed CPAP trial yesterday due to low tidal volume, tachycardia, tachypnea. Patient was diuresing very well with output -2056. Holding off IV Lasix, discontinued meropenem. Repeat urine analysis ordered. Patient is day 17 of intubation, discussed tracheostomy option with family if CPAP trial fails. Patient's son, who is the POA demonstrated understanding, we will continue this discussion after CPAP trial tomorrow. 09/06/2025: Today, CPAP trial stopped after 3-1/2 hours due to tachypnea, low tidal volume and accessory muscle use. Labs show elevated sodium, ordered free water. IV spironolactone before CPAP trial in morning tomorrow. 09/07/2025: Patient was seen at bedside. No significant overnight events. CPAP trial today in morning further on 04/19 pressures. Patient was eventually extubated. Ordered folic acid, Lasix 20. We will try feeding tomorrow. Patient had low-sodium, supplemented. Continue free water in context of hypernatremia. Objective vital signs Vital Sign Date Time Temp Pulse Resp B/P (MAP) Pulse Ox O2 Delivery O2 Flow Rate FiO2 09/07/25 14:16 97 Nasal Cannula* 2 28 09/07/25 14:00 26 09/07/25 14:00 96 09/07/25 12:00 98.2 98.2 Total Intake and Output 09/06/25 09/06/25 09/07/25 15:00 23:00 07:00 Intake Total 38.325 ml 499.164 ml 395.831 ml Output Total 1800 ml 1375 ml Balance 38.325 ml -1300.836 ml -979.169 ml medications Current Medications Medications Dose Ordered Sig/Erum Route Start Time Stop Time Status Last Admin Dose Admin Acetaminophen 650 mg Q6HP PRN PO 08/15/25 22:15 Sodium Chloride 10 ml QSHIFT@10,22 IV 08/19/25 22:00 09/07/25 10:00 10 ML Pantoprazole Sodium 40 mg BID IV 08/22/25 10:00 09/07/25 10:00 40 MG Albumin Human 100 ml @ 100 mls/hr PRN PRN IV 08/22/25 17:00 Sodium Chloride 10 meq/Potassium Chloride 10 meq/ Calcium Gluconate 6.3 meq/Magnesium Sulfate 10 meq/ Multivitamins 10 ml/Potassium Phosphate 20 meq/ Amino Acids/ Dextrose/Purified Water 1,038.0938 ml @ 43 mls/hr Q24H9M IV 08/26/25 22:00 08/27/25 21:59 Cancel Enteral Nutritional Formula 1,000 ml 30ML/HR GT 08/26/25 15:00 09/04/25 18:39 1,000 ML Lactulose 30 ml DAILY PO 08/28/25 10:00 09/06/25 09:28 30 ML Albuterol 2.5 mg Q4HP PRN NEB 09/04/25 09:45 09/07/25 00:35 2.5 MG Purified Water 100 ml Q6HR GT 09/06/25 18:00 09/07/25 12:00 100 ML Spironolactone 50 mg DAILY PO 09/07/25 10:00 Folic Acid 1 mg/ Dextrose 50.2 ml @ 200.8 mls/ hr DAILY INJ 09/08/25 10:00 Examination General: Patient intubated. A&O x3; Opens eyes spontaneously. HEENT: Pupils B/L equal and reactive to light. Normocephalic, atraumatic. Respiratory/pulmonary: Clear bilateral breath sounds. Cardiovascular: Irregular heart rate Abdomen: Soft abdomen on palpation, normal bowel sounds Extremities: Warm bilateral extremities. B/L upper arm ecchymosis. Trace pitting edema in B/L upper and lower extremities. Skin: Small partial thickness linear skin tears (healing with scabs) approximately 0.5X1 cm in abdominal folds, left arm and left lower leg, reduced from baseline. Neurological: Patient is A&O x3, following commands. Motor strength 3/5 laboratory and microbiology Laboratory Tests 09/07/25 14:35 09/07/25 03:15 Test 09/07/25 03:15 Range/Units Serum Glucose 110 H 74-106 mg/dL Microbiology Date/Time Source Procedure Growth Status 08/23/25 16:30 Urine - Abreu Port Urine Culture - Final Complete 08/18/25 10:55 Nose MRSA Screen - Final Complete Problem List/Assessment/Plan Problem List/Assessment/Plan Neurology # Sedation, Analgesia Propofol 10 mcg/kg/hr Fentanyl 150 mcg/hr # Acute metabolic encephalopathy likely due to hyperammonemia Ammonia levels have normalized. Cardiovascular # Acute on chronic HFpEF heart failure Likely precipitated by fluid overload and sepsis Echocardiogram: LVEF 50%. mild mitral regurgitation. mild tricuspid regurgitation. mild to moderate pulmonic regurgitation Bumex drip, Furosemide 20 mg IV discontinued Jardiance, Furosemide, and carvedilol held at this time CXR on 09/01/2025 show increased right hemithorax pleural opacification. Reduce Furosemide 40 mg IV from b.i.d. dosing to once daily. Holding off IV Lasix # Chronic Atrial Fibrillation Amiodarone - held due to bradycardia # Severe Pulmonary Hypertension Sildenafil held Ambrisentan 5 mg held # Bradycardia Midodrine 10 mg TID Discontinued Dopamine 2 mcg d/t tachycardia # Septic shock (POA Unable to determine) Holding Levophed Respiratory # Ventilator Intubated (08/19/2025) Extubated on 09/07/2025 # Acute hypoxic respiratory failure # Acute hypercapnic respiratory failure S/p intubation Blood gas show normalization of pH, pCO2, pO2 CPAP trial done today. Patient was successfully extubated # Pulmonary Edema with bilateral pleural effusions Chest xray: Stable appearing pulmonary edema and small bilateral pleural effusions. # Pneumonia, ruled out Azithromycin discontinued Gastrointestinal # Acute hypovolemic shock likely due to Lower GI Bleed # Segmental ischemic colitis or diverticular disease, possible 8 PRBC transfusions, 4 FFPs, 5 Platelet transfusions Stool occult positive, discontinued Sandostatin Protonix 40 mg IV BID Vasopressin (holding off for now) Quadlevo discontinued Dopamine switched to Levophed d/t Tachycardia; NS 250 cc bolus given H&H stable; continue monitoring Completed Bedside colonoscopy today. As per GI specialist, patient has diverticulosis, likely the source GI bleed. No active bleed seen. # Liver cirrhosis likely due to fatty liver disease # Acute metabolic encephalopathy likely due to hyperammonemia # Hypoalbuminemia MELD score 26 Continue lactulose Monitor ammonia Albumin supplemented IV Lasix 20 mg given Continue spironolactone # Cholelithaisis Abdominal US: The gallbladder wall measures 0.3 cm and is normal in size. Gallstones are noted. # 2 cm sliding type hiatal hernia # Mild gastritis EGD 08/26/2025: 1-2 cm sliding-type hiatal hernia with no significant erosive esophagitis, mild gastritis involving the antrum and body of the stomach with some linear gastric erosions GI recommended Protonix 40 mg b.i.d. IV, discontinue IV Sandostatin drip, continue to monitor labs and transfuse if hemoglobin drops below 7, elective colonoscopy once medically stabilized Continue IV iron therapy CT scan of the abdomen pelvis shows liver cirrhosis, splenomegaly. Pulmonary hypertension, B/L LL opacities. Enlargement of the uterus with a lobulated contour and scattered calcifications, possibly referable to fibroids. Genitourinary # Abreu catheter present draining clear urine # Complicated UTI Urine culture: E coli ESBL Discontinued Meropenem UA shows signs of improved infection UC: No growth after 48 hours Urine analysis from 09/06/25 negative for UTI Nephrology # RUDDY on CKD likely due to hemodynamically mediated (d/t VMN) Per nephrology, renal function is improving, dialysis is being held at this time. Jose M catheter remain in its place due to thrombocytopenia until patient is more stabilized. # Hyperkalemia, resolved # Hypernatremia Monitor BMP Free water ordered Infectious disease # Sepsis d/t below (POA Unable to determine) # Possible Septic Shock due to below (POA Unable to determine) # Complicated ESBL UTI D/c'd Meropenem 1 g IV BID Urine Culture: E. Coli ESBL Follow up UA shows improvement; Follow up UC shows no growth at 48 hours Vasopressin (holding off for now) Quadlevo discontinued Hem/onc # Acute hypovolemic shock likely due to Lower GI Bleed Managed w/ 8 PRBC transfusions, 4 FFPs, 5 Platelet transfusions D/c Sandostatin drip Protonix 40 mg IV BID Dopamine switched to Levophed d/t Tachycardia (08/29/25); Levophed discontinued in context of SBP> 90 # Pancytopenia Possibly associated to liver cirrhosis Endocrinology # Morbid Obesity BMI 57.4 DVT prophylaxis: SCDs Peptic ulcer prophylaxis: Pantoprazole 40 mg IV BID Nutrition: Holding NG nutrition Start p.o. diet tomorrow, ordered mechanical soft diet Lines -R PICC line 08/19 -Abreu catheter 08/19 -ET tube: 08/19 -Jose M catheter 08/19 Drips during [facility] ventilation: Propofol 10 mcg/kg/min Fentanyl 150 mcg/hr Vasopressin held Quadlevo discontinued Sandostatin discontinued Dopamine discontinued Levophed started (08/29/25) held Patient on vasopressin (holding off for now), Levophed discontinued in context of SBP> 90. Dopamine discontinued d/t elevated heart rate. Patient is in critical condition, all findings and care plan discussed with her son at bedside. Questions and concerns were thoroughly addressed, prognosis is poor. Critical care time 97 minutes including cpap trial and extubation and excluding procedure. Code status discussed greater than 20 minutes: Full CODE STATUS. Family at bedside explained about the condition of the patient. Goals of care discussed with son on bedside. Plan discussed with Dr. Gallo Plan discussed with: Son, Other (nurses) My Orders My Orders Orders - KLAUDIA LOWE Procedure Category Date Status Time Complete Blood Count LAB 09/08/25 Verified 04:00 Comprehensive LAB 09/08/25 Verified Metabolic Panel 04:00 Chest Portable XY 09/08/25 Logged 04:00 Abg W/ Co-Ox RT 09/08/25 Logged 04:00 Cardiac DIET 09/08/25 Transmitted Diet-2gna,Lofat,Lochol Dinner CC Plasma Assessment Blood Product Administration S: [id number] Visit Coding STANDARD RES Billing Provider: ALINA GALLO MD Date of Service if different f: Sep 07, 2025 Common Visit Codes: 58188-KDCURDRJ CARE 30-74 MIN, 36093-IOCQUYLK CARE-EACH +30MIN KLAUDIA LOWE Sep 07, 2025 16:32 ALINA GALLO MD Sep 11, 2025 11:26
[2025-09-07] MEDS: FUROSEMIDE 20 MG/2 ML VIAL IV ONE (17:04)
[2025-09-07] MEDS: SPIRONOLACTONE 25 MG TAB PO SCH (17:05)
--- NOTE | 2025-09-07 17:53 | DVHPN2 ---
Progress Note - Dictate Date Seen: Sep 07, 2025 Has the PT tested + for MRSA If YES, has PT been informed?: No Medical Necessity Reason Pt with a Central, PICC or Fol: Yes The following are medically ne: PICC Line, Abreu Catheter Subjective Patient got extubated this evening now on nasal cannula No active GI bleeding, normal brown stool, hemoglobin stable at 8.8 Patient has mild neutropenia EGD was negative, small hiatal hernia mild gastritis no bleeding Colonoscopy showed diverticulosis vital signs Vital Sign Date Time Temp Pulse Resp B/P (MAP) Pulse Ox O2 Delivery O2 Flow Rate FiO2 09/07/25 17:04 109/61 09/07/25 16:00 88 09/07/25 16:00 32 97 Nasal Cannula* 8 30 Cool Aerosol 30 09/07/25 12:00 98.2 98.2 Total Intake and Output 09/06/25 09/06/25 09/07/25 15:00 23:00 07:00 Intake Total 38.325 ml 499.164 ml 395.831 ml Output Total 1800 ml 1375 ml Balance 38.325 ml -1300.836 ml -979.169 ml medications Current Medications Medications Dose Ordered Sig/Erum Route Start Time Stop Time Status Last Admin Dose Admin Acetaminophen 650 mg Q6HP PRN PO 08/15/25 22:15 Sodium Chloride 10 ml QSHIFT@10,22 IV 08/19/25 22:00 09/07/25 10:00 10 ML Pantoprazole Sodium 40 mg BID IV 08/22/25 10:00 09/07/25 10:00 40 MG Albumin Human 100 ml @ 100 mls/hr PRN PRN IV 08/22/25 17:00 Sodium Chloride 10 meq/Potassium Chloride 10 meq/ Calcium Gluconate 6.3 meq/Magnesium Sulfate 10 meq/ Multivitamins 10 ml/Potassium Phosphate 20 meq/ Amino Acids/ Dextrose/Purified Water 1,038.0938 ml @ 43 mls/hr Q24H9M IV 08/26/25 22:00 08/27/25 21:59 Cancel Enteral Nutritional Formula 1,000 ml 30ML/HR GT 08/26/25 15:00 09/04/25 18:39 1,000 ML Lactulose 30 ml DAILY PO 08/28/25 10:00 09/06/25 09:28 30 ML Albuterol 2.5 mg Q4HP PRN NEB 12/21/25 09:45 09/07/25 00:35 2.5 MG Purified Water 100 ml Q6HR GT 09/06/25 18:00 09/07/25 17:05 100 ML Spironolactone 50 mg DAILY PO 09/07/25 10:00 09/07/25 17:05 50 MG Folic Acid 1 mg/ Dextrose 50.2 ml @ 200.8 mls/ hr DAILY INJ 09/08/25 10:00 objective General: Obese, afebrile, palor, mucosae are moist Cardiovascular: Regular S1 and S2. No murmurs, gallops or rubs. No JVD elevation. Bilateral pedal edema. Respiratory: Decreased breath sounds heard on auscultation, extubated on 2 L nasal cannula Abdomen: Soft, nontender, nondistended, hypoactive bowel sounds, no rebound tenderness, no organomegaly, no masses Genitourinary: Abreu catheter seen Neurological: Pupils are isocoric and reactive. laboratory and microbiology Laboratory Tests 09/07/25 14:35 09/07/25 03:15 Test 09/07/25 03:15 Range/Units Serum Glucose 110 H 74-106 mg/dL Problems(with codes): (1) Neutropenia (2) CHF exacerbation (3) Rectal bleeding (4) Thrombocytopenia (5) Anemia (6) Acute hyperkalemia (7) Acute dyspnea (8) Acute renal failure (9) Hypoxic respiratory failure Prognosis Plan Awaiting swallow evaluation by speech therapist Continue supportive care from GI point of view Blood thinners are on hold Patient on IV antibiotics Monitor labs Plan discussed with: Other (Nurse) CC Plasma Assessment Blood Product Administration S: [id number] STEPHANIE CLAYTON MD Sep 07, 2025 17:53
[2025-09-07] MEDS: FOLIC ACID 1 MG in D5W 5% 50 ML INJ ONE (18:00)
[2025-09-07] MEDS: AMIODARONE BOLUS KIT 100 ML IV ONE ×2 (18:50→19:00)
[2025-09-07] MEDS: METOPROLOL TARTRATE 1MG/1ML-5ML VIAL IV ONE (20:25)
[2025-09-08] VITALS (112 sets, daily range): BP systolic 98–134; BP diastolic 35–84; PULSE 87–156; RESP 17–52; TEMP 98–98.9; O2SAT 89–100
[2025-09-08] MEDS: FUROSEMIDE 20 MG/2 ML VIAL IV ONE ×3 (01:00→15:54)
[2025-09-08] MEDS: IPRATROPIUM BROM 0.5 MG/2.5ML INH SOL NEB PRN (02:12)
[2025-09-08 02:46] LABS: Hematocrit 30.9 % (36.0-46.0); Hemoglobin 10.2 g/dL (12.2-16.2); Mean Corpuscular Hemoglobin 29.3 pg (28.0-32.0); Mean Corpuscular Volume 88.8 fL (80.0-100.0); Nucleated Red Blood Cells % 0.1 %
[2025-09-08 03:00] LABS: Albumin 3.7 g/dL (3.2-4.8); Alkaline Phosphatase 96 U/L (46-116); Anion Gap 11 (5-15); BUN/Creatinine Ratio 16.3 (10.0-20.0); Blood Urea Nitrogen 15 mg/dL (9-23); Calcium 9.3 mg/dL (8.7-10.4); Carbon Dioxide 29 mmol/L (20-31); Potassium 4.1 mmol/L (3.5-5.1); Total Protein 7.5 g/dL (5.7-8.2)
[2025-09-08 03:04] LABS: Alanine Aminotransferase < 9 U/L (7-40); Bilirubin, Total 1.8 mg/dL (0.2-1.0); Chloride 107 mmol/L (98-107); Glucose 124 mg/dL (74-106); Sodium 147 mmol/L (136-145)
[2025-09-08 03:18] LABS: Base Excess 3.2 mmol/L (-2.0-3.0)
--- NOTE | 2025-09-08 03:24 | DVH ---
CHEST RADIOGRAPH INDICATION: SOB TECHNIQUE: Single frontal view of the chest was obtained COMPARISON: XY CHEST PORTABLE on DOS: 09/07/25, XY CHEST PORTABLE on DOS: 09/06/25, XY CHEST PORTABLE on DOS: 09/05/25, XY CHEST PORTABLE on DOS: 09/04/25, XY CHEST PORTABLE on DOS: 09/03/25 FINDINGS: Lines and Tubes: Unchanged. Lungs: Stable appearing bilateral pleural effusions, bibasilar pulmonary airspace disease and diffuse increased prominence of the pulmonary vasculature. No pneumothorax. Cardiomediastinal contours: Cardiomegaly. Bones: Unremarkable IMPRESSION: 1. Staple pulmonary vascular congestion, bilateral pleural effusions and bibasilar pulmonary airspace disease. 2. Cardiomegaly. 3. Lines and tubes unchanged.
[2025-09-08 07:25] LABS: Base Excess 2.7 mmol/L (-2.0-3.0)
[2025-09-08] MEDS: FOLIC ACID 1 MG in D5W 5% 50 ML INJ SCH (09:55)
--- NOTE | 2025-09-08 15:34 | DVHPNRES ---
Progress Note Date Seen: Sep 08, 2025 Resident Creating Document: KLAUDIA LOWE RESIDENT Has the PT tested + for MRSA If YES, has PT been informed?: No Medical Necessity Reason Pt with a Central, PICC or Fol: Yes The following are medically ne: PICC Line, Abreu Catheter Subjective Review of Systems Ms. Worthington is a 65 year old female with past medical history of HFpEF liver cirrhosis, chronic atrial fibrillation, anemia with multiple blood transfusions in the past, and pulmonary hypertension, who presented to [facility] via EMS due shortness of breath. As per her sons, the patient has had progressively worsening bilateral leg edema for the last month associated with worsening shortness of breath for two weeks. They state that she is compliant with her medications, however, every few months they have to take their mom to the hospital for similar symptoms, with most recent hospitalization in late May 2025. She was seen by her home health nurse on Friday (08/15/2025) night, who told the family to call EMS. As per records, on scene she was found to have a saturation of 90% on room air, she placed on 2 L NC with improvement to 92% and brought to the emergency department. On initial evaluation in the ER, she was afebrile, MAP within normal range, saturating adequately on 2L NC. She was found to have anasarca reaching up to her thighs. 12 lead EKG showed atrial fibrillation. Initial labs are significant for pancytopenia, hyperkalemia, BUN 84, creatinine 2.14, BNP 207, troponins negative, and lipase 178. UA is consistent with a UTI. Chest Xray significant for hazy opacities throughout the right lung, and stable cardiomediastinal enlargement. The patient was started on IV Lasix, hyperkalemia protocol, IV antibiotics, and of 1 PRBC and was admitted for further work up and management. The patient was evaluated by nephrology who initially recommended diuresis, albumin and low dose dopamine, and midodrine, however, due to progressively worsening kidney function, dialysis was recommended. On 08/18/2025 patient was found lethargic and disoriented, blood gas showed hypoxic and hypercapnic respiratory failure, she was started on BiPAP and transferred to the ICU. Mentation continued to deteriorate and required intubation for airway protection and respiratory insufficiency. Patient presented two large bloody bowel movements requiring emergent transfusion of 2 PRBCs and vasopressors. She was evaluated by gastroenterology who recommended use of PPI, octreotide, and transfusions as needed with endoscopy when stable. Prior medical history: HFrEF, Liver cirrhosis, Chronic Atrial Fibrillation, Anemia s/p multiple blood transfusions, and pulmonary hypertension Prior surgical history: 3 c-sections Social: Sons deny any previous drug, tobacco, or alcohol use. She recently moved to the area to live with her son, Dalia. 09/05/2025: Patient was seen at bedside. Patient failed CPAP trial yesterday due to low tidal volume, tachycardia, tachypnea. Patient was diuresing very well with output -2056. Holding off IV Lasix, discontinued meropenem. Repeat urine analysis ordered. Patient is day 17 of intubation, discussed tracheostomy option with family if CPAP trial fails. Patient's son, who is the POA demonstrated understanding, we will continue this discussion after CPAP trial tomorrow. 09/06/2025: Today, CPAP trial stopped after 3-1/2 hours due to tachypnea, low tidal volume and accessory muscle use. Labs show elevated sodium, ordered free water. IV spironolactone before CPAP trial in morning tomorrow. 09/07/2025: Patient was seen at bedside. No significant overnight events. CPAP trial today in morning further on 04/19 pressures. Patient was eventually extubated. Ordered folic acid, Lasix 20. We will try feeding tomorrow. Patient had low-sodium, supplemented. Continue free water in context of hypernatremia. 09/08/2025: Patient was seen at bedside. Patient was extubated yesterday. Tachypnea overnight, required BiPAP. Patient had low-grade fever overnight. Patient had tachycardia overnight, switched p.o. amiodarone to drip. On 2 L oxygen with nasal cannula during daytime. As the day progressed patient started getting dyspneic, started on BiPAP. Pressure setting changed, FiO2 reduced to 30%, EPAP 8. ABG and CXR ordered. Continue on nightly BiPAP. We will continue Lasix p.r.n.. We will closely monitor WBC count. Objective vital signs Vital Sign Date Time Temp Pulse Resp B/P (MAP) Pulse Ox O2 Delivery O2 Flow Rate FiO2 09/08/25 14:45 108 33 111/56 (74) 99 09/08/25 13:49 Nasal Cannula* 4 36 09/08/25 11:45 98.6 98.6 Total Intake and Output 09/07/25 09/07/25 09/08/25 15:00 23:00 07:00 Intake Total 45.980 ml 299.99 ml 466.64 ml Output Total 850 ml 550 ml Balance 45.980 ml -550.01 ml -83.36 ml medications Current Medications Medications Dose Ordered Sig/Erum Route Start Time Stop Time Status Last Admin Dose Admin Acetaminophen 650 mg Q6HP PRN PO 08/15/25 22:15 Sodium Chloride 10 ml QSHIFT@10,22 IV 08/19/25 22:00 09/08/25 07:35 10 ML Pantoprazole Sodium 40 mg BID IV 08/22/25 10:00 09/08/25 07:35 40 MG Albumin Human 100 ml @ 100 mls/hr PRN PRN IV 08/22/25 17:00 Sodium Chloride 10 meq/Potassium Chloride 10 meq/ Calcium Gluconate 6.3 meq/Magnesium Sulfate 10 meq/ Multivitamins 10 ml/Potassium Phosphate 20 meq/ Amino Acids/ Dextrose/Purified Water 1,038.0938 ml @ 43 mls/hr Q24H9M IV 08/26/25 22:00 08/27/25 21:59 Cancel Enteral Nutritional Formula 1,000 ml 30ML/HR GT 08/26/25 15:00 09/04/25 18:39 1,000 ML Lactulose 30 ml DAILY PO 08/28/25 10:00 09/08/25 07:35 30 ML Albuterol 2.5 mg Q4HP PRN NEB 09/04/25 09:45 09/08/25 02:12 2.5 MG Purified Water 100 ml Q6HR GT 09/06/25 18:00 09/08/25 12:13 100 ML Spironolactone 50 mg DAILY PO 09/07/25 10:00 09/08/25 07:36 50 MG Folic Acid 1 mg/ Dextrose 50.2 ml @ 200.8 mls/ hr DAILY INJ 09/08/25 10:00 09/08/25 09:55 200.8 MLS/HR Ipratropium [place] 0.5 mg Q4HPRN PRN NEB 09/08/25 01:45 09/08/25 02:12 0.5 MG Amiodarone HCl 250 ml @ 33.33 mls/ hr Q7H31M IV 09/08/25 03:30 09/08/25 11:00 33.33 MLS/HR Examination General: A&O x3; Opens eyes spontaneously. HEENT: Pupils B/L equal and reactive to light. Normocephalic, atraumatic. Respiratory/pulmonary: Coarse bilateral breath sounds with crackles. Cardiovascular: Irregular heart rate Abdomen: Soft abdomen on palpation, normal bowel sounds Extremities: Warm bilateral extremities. B/L upper arm ecchymosis. Trace pitting edema in B/L upper and lower extremities. Skin: Small partial thickness linear skin tears (healing with scabs) approximately 0.5X1 cm in abdominal folds, left arm and left lower leg, healing with scabs. Neurological: Patient is A&O x3, following commands. Motor strength 3/5 laboratory and microbiology Laboratory Tests 09/08/25 02:15 Test 09/08/25 02:15 Range/Units Serum Glucose 124 H 74-106 mg/dL Microbiology Date/Time Source Procedure Growth Status 08/23/25 16:30 Urine - Abreu Port Urine Culture - Final Complete 08/18/25 10:55 Nose MRSA Screen - Final Complete Problem List/Assessment/Plan Problem List/Assessment/Plan Neurology # Sedation, Analgesia Propofol 10 mcg/kg/hr Fentanyl 150 mcg/hr # Acute metabolic encephalopathy likely due to hyperammonemia Ammonia levels have normalized. Cardiovascular # Acute on chronic HFpEF heart failure Likely precipitated by fluid overload and sepsis Echocardiogram: LVEF 50%. mild mitral regurgitation. mild tricuspid regurgitation. mild to moderate pulmonic regurgitation Bumex drip, Furosemide 20 mg IV discontinued Jardiance, Furosemide, and carvedilol held at this time CXR on 09/01/2025 show increased right hemithorax pleural opacification. Reduce Furosemide 40 mg IV from b.i.d. dosing to once daily. Holding off IV Lasix # Chronic Atrial Fibrillation Amiodarone - held due to bradycardia # Severe Pulmonary Hypertension Sildenafil held Ambrisentan 5 mg held # Bradycardia Midodrine 10 mg TID Discontinued Dopamine 2 mcg d/t tachycardia # Septic shock (POA Unable to determine) Holding Levophed Respiratory # Ventilator Intubated (08/19/2025) Extubated on 09/07/2025 # Acute hypoxic respiratory failure # Acute hypercapnic respiratory failure # Sleep apnea, possible # Obesity hyperventilation syndrome, possible S/p extubation Blood gas show normalization of pH, pCO2, pO2 On 2 L oxygen with nasal cannula during daytime. Started on BiPAP d/t respiratory distress. Pressure settings changed, FiO2 reduced to 30%, EPAP 8. ABG and CXR ordered. Continue on nightly BiPAP. # Pulmonary Edema with bilateral pleural effusions Chest xray: Stable appearing pulmonary edema and small bilateral pleural effusions. # Pneumonia, ruled out Azithromycin discontinued Gastrointestinal # Acute hypovolemic shock likely due to Lower GI Bleed # Segmental ischemic colitis or diverticular disease, possible 8 PRBC transfusions, 4 FFPs, 5 Platelet transfusions Stool occult positive, discontinued Sandostatin Protonix 40 mg IV BID Vasopressin (holding off for now) Quadlevo discontinued Dopamine switched to Levophed d/t Tachycardia; NS 250 cc bolus given H&H stable; continue monitoring Completed Bedside colonoscopy today. As per GI specialist, patient has diverticulosis, likely the source GI bleed. No active bleed seen. # Liver cirrhosis likely due to fatty liver disease # Acute metabolic encephalopathy likely due to hyperammonemia # Hypoalbuminemia MELD score 26 Continue lactulose Monitor ammonia Albumin supplemented Continue IV Lasix 20 mg PRN Continue spironolactone # Cholelithaisis Abdominal US: The gallbladder wall measures 0.3 cm and is normal in size. Gallstones are noted. # 2 cm sliding type hiatal hernia # Mild gastritis EGD 08/26/2025: 1-2 cm sliding-type hiatal hernia with no significant erosive esophagitis, mild gastritis involving the antrum and body of the stomach with some linear gastric erosions GI recommended Protonix 40 mg b.i.d. IV, discontinue IV Sandostatin drip, continue to monitor labs and transfuse if hemoglobin drops below 7, elective colonoscopy once medically stabilized Continue IV iron therapy CT scan of the abdomen pelvis shows liver cirrhosis, splenomegaly. Pulmonary hypertension, B/L LL opacities. Enlargement of the uterus with a lobulated contour and scattered calcifications, possibly referable to fibroids. Genitourinary # Abreu catheter present draining clear urine # Complicated UTI Urine culture: E coli ESBL Discontinued Meropenem UA shows signs of improved infection UC: No growth after 48 hours Urine analysis from 09/06/25 negative for UTI Nephrology # RUDDY on CKD likely due to hemodynamically mediated (d/t VMN) Per nephrology, renal function is improving, dialysis is being held at this time. Jose M catheter remain in its place due to thrombocytopenia until patient is more stabilized. # Hyperkalemia, resolved # Hypernatremia Monitor BMP Free water ordered Infectious disease # Sepsis d/t below (POA Unable to determine) # Possible Septic Shock due to below (POA Unable to determine) # Complicated ESBL UTI D/c'd Meropenem 1 g IV BID Urine Culture: E. Coli ESBL Follow up UA shows improvement; Follow up UC shows no growth at 48 hours Vasopressin (holding off for now) Quadlevo discontinued Hem/onc # Acute hypovolemic shock likely due to Lower GI Bleed Managed w/ 8 PRBC transfusions, 4 FFPs, 5 Platelet transfusions D/c Sandostatin drip Protonix 40 mg IV BID Dopamine switched to Levophed d/t Tachycardia (08/29/25); Levophed discontinued in context of SBP> 90 # Pancytopenia Possibly associated to liver cirrhosis We will closely monitor WBC count. Endocrinology # Morbid Obesity BMI 57.4 DVT prophylaxis: SCDs Peptic ulcer prophylaxis: Pantoprazole 40 mg IV BID Nutrition: Holding NG nutrition Continue NG tube feeding until swallow eval completed Lines -R PICC line 08/19 -Abreu catheter 08/19 -ET tube: 08/19 -Jose M [facility]: Propofol 10 mcg/kg/min Fentanyl 150 mcg/hr Vasopressin held Quadlevo discontinued Sandostatin discontinued Dopamine discontinued Levophed started (08/29/25) held Patient on vasopressin (holding off for now), Levophed discontinued in context of SBP> 90. Dopamine discontinued d/t elevated heart rate. Patient is in critical condition, all findings and care plan discussed with her son at bedside. Questions and concerns were thoroughly addressed, prognosis is poor. Critical care time 89 minutes excluding procedure. Code status discussed greater than 20 minutes: Full CODE STATUS. Family at bedside explained about the condition of the patient. Goals of care discussed with son on bedside. Plan discussed with Dr. Puga Plan discussed with: Son, Other (Nurses) My Orders My Orders Orders - KLAUDIA LOWE RESIDENT Procedure Category Date Status Time Complete Blood Count LAB 09/09/25 Verified 04:00 Comprehensive LAB 09/09/25 Verified Metabolic Panel 04:00 CC Plasma Assessment Blood Product Administration S: 1245 Visit Coding STANDARD RES Billing Provider: SILVIA PUGA MD Date of Service if different f: Sep 08, 2025 Common Visit Codes: 15022-ALYCERRQ CARE 30-74 MIN, 03368-[id number] CARE-EACH +30MIN KLAUDIA LOWE RESIDENT Sep 08, 2025 15:34
[2025-09-08 19:49] LABS: Base Excess 4.0 mmol/L (-2.0-3.0)
--- NOTE | 2025-09-08 23:28 | DVHINCON2 ---
Date of service: Sep 08, 2025 Referring Physician Zach Reason for Consultation A Fib with RVR. History of Present Illness This is a 65 year old female with a PMH of liver cirrhosis who was admitted with respiratory failure on 08.15. Patient presented with c/o SOB and BLE swelling on 08/15. Patient was intubated for respiratory failure and was extubated 09/07. Patient now on BI-PAP. Patient is in A FIb with RVR, therefore cardiology is asked to see this patient. Family History: Patient reports no known family medical history. Allergies: Coded Allergies: NO KNOWN ALLERGIES (Unverified , 06/08/25) Home Meds Active Scripts Ferrous Sulfate (FERROUS SULFATE) 325 Mg Tb, 1 TAB PO DAILY for 30 Days, #30 TAB 1 Refill Prov:CHRIS ROQUE 06/12/25 Albuterol Sulfate (Albuterol Sulfate Hfa) 108 Mcg/Act Aer, 108 MCG IN Q6HP PRN for 30 Days, #1 AER Prov:CHRIS ROQUE RESIDENT 06/12/25 Furosemide (Lasix) 40 Mg Tab, 40 MG PO BID for 30 Days, #60 TAB Prov:[facility] RESIDENT 06/12/25 Reported Medications Sildenafil Citrate (Sildenafil Citrate) 20 Mg Tab, 1 TAB PO BID for 90 Days, #270 06/09/25 Ambrisentan (Ambrisentan) 5 Mg Tab, 5 MG PO DAILY, TAB 06/08/25 Spironolactone (Spironolactone) 25 Mg Tab, 1 TAB PO DAILY, #90 TAB 1 Refill 06/08/25 Dapagliflozin Propanediol (Farxiga) 10 Mg Tab, 10 MG PO DAILY, TAB 06/08/25 Carvedilol (Carvedilol) 6.25 Mg Tab, 1 TAB PO DAILY, #180 TAB 1 Refill 06/08/25 Current Medications Current Medications Medications (Trade) Dose Ordered Sig/Erum Route PRN Reason Start Time Stop Time Status Last Admin Folic Acid 1 mg/ Dextrose 50.2 ml @ 200.8 mls/ hr DAILY INJ 09/08/25 10:00 09/08/25 09:55 Amiodarone HCl 250 ml @ 16.66 mls/ hr Q15H1M IV 09/08/25 01:00 09/07/25 20:33 DC Ipratropium [place] (Atrovent Medneb) 0.5 mg Q4HPRN PRN NEB SHORTNESS OF BREATH 09/08/25 01:45 09/08/25 18:58 Amiodarone HCl 250 ml @ 33.33 mls/ hr Q7H31M IV 09/08/25 03:30 09/08/25 17:30 Review of Systems All 12 item review of systems reviewed with the patient nonsignificant except what is mentioned in the history of present illness Vital Signs Vital Signs Date Time Temp Pulse Resp B/P (MAP) Pulse Ox O2 Delivery O2 Flow Rate FiO2 09/08/25 20:15 118 32 111/54 (73) 99 09/08/25 20:00 98.4 98.4 09/08/25 20:00 Nasal Cannula* 2 28 Physical Exam GENERAL: Alert and oriented x 3. Ill appearing, morbidly obese. EYES: PERRL, EOMI. Anicteric. HENT: Moist mucous membranes. LUNGS: Decreased breath sounds. CARDIOVASCULAR: Irregular rate and rhythm. ABDOMEN: Soft, non-tender and non-distended. EXTREMITIES: No edema. NEUROLOGIC: No focal neurological deficits. SKIN: Warm, dry. Labs/Diagnostic Data Labs Test 09/08/25 19:42 09/08/25 16:17 09/08/25 02:15 09/07/25 09:16 Range/Units Blood Gas Specimen Type Arterial Blood Gas Sample Site Left radial Blood Gas Patient Temperature 37.0 Arterial Blood Date Drawn [id number] Arterial Blood pH 7.430 7.350-7.450 Arterial Blood Partial Pressure CO2 44.3 32.0-45.0 mmHg Arterial Blood Partial Pressure O2 75.0 L 83.0-108.0 mmHg Arterial Blood HCO3 28.7 H 21.0-28.0 mmol/L Arterial Blood Oxygen Saturation 93.8 L 94.0-98.0 % Arterial Blood Base Excess 4.0 H -2.0-3.0 mmol/L Arterial Blood Oxyhemoglobin 92.8 L 94.0-98.0 % Arterial Blood Carboxyhemoglobin 1.0 0.5-1.5 % Arterial Blood Methemoglobin 0.1 0.0-1.5 % Arterial Blood Deoxyhemoglobin 6.1 H 0.0-5.0 % George Test Yes Blood Gas Total Hemoglobin 9.70 L 12.0-16.0 g/dL Blood Gas Liter Flow 2.00 Blood Gas Modality Nasal cannula FiO2 % 28.0 POC Glucose 110 H 70-106 mg/dl White Blood Count 4.1 #L 4.4-10.8 10^3/uL Red Blood Count 3.48 L 4.0-5.20 10^6/uL Hemoglobin 10.2 #L 12.2-16.2 g/dL Hematocrit 30.9 #L 36.0-46.0 % Mean Corpuscular Volume 88.8 80.0-100.0 fL Mean Corpuscular Hemoglobin 29.3 28.0-32.0 pg Mean Corpuscular Hemoglobin Concent 33.0 32.0-36.0 g/dL Red Cell Distribution Width 21.4 H 11.8-14.3 % Platelet Count 86 L 140-450 10^3/uL Mean Platelet Volume 8.3 6.9-10.8 fL Neutrophils (%) (Auto) 69.5 37.0-80.0 % Lymphocytes (%) (Auto) 15.6 10.0-50.0 % Monocytes (%) (Auto) 12.0 0.0-12.0 % Eosinophils (%) (Auto) 2.6 0.0-7.0 % Basophils (%) (Auto) 0.3 0.0-2.0 % Neutrophils # (Auto) 2.8 1.6-8.6 10 ^3/uL Lymphocytes # (Auto) 0.6 0.4-5.4 10 ^3/uL Monocytes # (Auto) 0.5 0-1.3 10 ^3/uL Eosinophils # (Auto) 0.1 0-0.8 10 ^3/uL Basophils # (Auto) 0 0-0.2 10 ^3/uL Nucleated Red Blood Cells 0.1 % Sodium Level 147 H 136-145 mmol/L Potassium Level 4.1 3.5-5.1 mmol/L Chloride Level 107 98-107 mmol/L Carbon Dioxide Level 29 20-31 mmol/L Anion Gap 11 5-15 Blood Urea Nitrogen 15 9-23 mg/dL Creatinine 0.92 0.550-1.02 mg/dL Glomerular Filtration Rate Calc 68 >90 mL/min BUN/Creatinine Ratio 16.3 10.0-20.0 Serum Glucose 124 H 74-106 mg/dL Calcium Level 9.3 8.7-10.4 mg/dL Magnesium Level 2.0 1.6-2.6 mg/dL Total Bilirubin 1.8 H 0.2-1.0 mg/dL Aspartate Amino Transferase (AST) 28 13-40 U/L Alanine Aminotransferase (ALT) < 9 7-40 U/L Alkaline Phosphatase 96 46-116 U/L Total Protein 7.5 5.7-8.2 g/dL Albumin 3.7 3.2-4.8 g/dL Blood Gas Spontaneous Rate 24 Blood Gas Spontaneous Tidal Volume 443 Blood Gas Pressure Support 8 Blood Gas PEEP or CPAP 5.0 Test 09/07/25 03:15 09/07/25 03:12 09/06/25 06:48 09/06/25 04:00 Range/Units Differential Total Cells Counted 100.0 100 Neutrophils % (Manual) 63 37.0-80.0 Band Neutrophils % (Manual) 0 Lymphocytes % (Manual) 24 10.0-50.0 Monocytes % (Manual) 7 0-12 Eosinophils % (Manual) 6 0-7 Basophils % (Manual) 0 0.0-2.0 Metamyelocytes % (manual) 0 Myelocytes % (Manual) 0 Promyelocytes % (Manual) 0 Blast Cells % (Manual) 0 Reactive Lymphocytes 0 Platelet Estimate Decreased Anisocytosis (manual) Slight Ammonia 25 11-32 umol/L Blood Gas Set Respiration Rate 22.0 Blood Gas Tidal Volume 450.0 Urine Color Yellow Yellow Urine Clarity Clear Clear Urine pH 7.5 5.0-9.0 Urine Specific [place] 1.016 1.001-1.035 Urine Protein 1+ H Negative Urine Ketones Trace Negative Urine Blood Negative Negative /uL Urine Nitrite Negative Negative Urine Bilirubin Negative Negative Urine Urobilinogen 4 H Negative mg/dL Urine Leukocyte Esterase Negative Negative /uL Urine RBC 2 0 - 4 /hpf Urine Microscopic WBC 5 0-5 /HPF Urine Squamous Epithelial Cells Mod <5 /hpf Urine Bacteria None seen None Seen /hpf Urine Glucose Normal Normal mg/dL Test 09/02/25 03:43 08/24/25 15:20 08/24/25 03:50 08/23/25 04:05 Range/Units Prothrombin Time 12.9 H 9.3-11.8 sec Prothrombin Time INR 1.24 H 0.9-1.15 Activated Partial Thromboplast Time 35.7 H 24.5-34.5 SEC Phosphorus Level 2.9 2.4-5.1 mg/dL Urine Hyaline Casts Few 0 - 2 /lpf Urine Mucus Few None Seen Iron Level 59 50-170 ug/dL Total Iron Binding Capacity 286 250-425 ug/dL Percent Iron Saturation 20.6 15-50 % Ferritin 38.2 10-291 ng/mL Triglycerides Level 156 H < 150 mg/dL Test 08/22/25 15:13 08/21/25 02:55 08/20/25 15:46 08/19/25 23:00 Range/Units Tumor Marker Alpha Fetoprotein 2.0 0.0-9.2 ng/mL Anti-Nuclear Antibody Screen Negative Negative Hepatitis C Antibody Negative Negative Poikilocytosis (manual) Slight Tear Drop Cells Few Ovalocytes Few Schistocytes Few Hepatitis B Surface Antigen Negative Negative Hepatitis B Surface Antibody Positive H Negative Stool Occult Blood Positive Negative Stool Occult Blood Sample #3 Negative Test 08/19/25 20:37 08/19/25 16:00 08/18/25 14:00 08/18/25 09:35 Range/Units Specimen Drawn By Blood Gas Critical Value Read Back yes Blood Gas Notified Whom jean bolden md Blood Gas Notified Time [id number] Blood Gas Notified By Lactic Acid Level 1.2 0.4-2.0 mmol/L Blood Gas EPAP 5 Blood Gas IPAP 18 Creatine Kinase 49 34-145 U/L Test 08/16/25 11:00 08/16/25 04:10 08/16/25 03:21 08/15/25 20:10 Range/Units Vitamin D 25-Hydroxy 59.6 30.0-100 ng/mL Urine WBC Clumps Present None Seen /hpf Urine Creatinine 50.59 30.0-125.0 mg/dL Urine Protein/Creatinine Ratio 0.61 Urine Sodium 46 40-220 mmol/L Urine Total Protein 30.8 H 1-14 mg/dL Parathyroid Hormone (Intact) 186.8 H 18.4-80.1 pg/mL Troponin I High Sensitivity 24 </=34 ng/L Test 08/15/25 19:17 Range/Units B-Type Natriuretic Peptide 207.44 0-100 pg/mL Lipase 178 H 12-53 U/L Microbiology Date/Time Source Procedure Growth Status 08/23/25 16:30 Urine - Abreu Port Urine Culture - Final Complete 08/18/25 10:55 Nose MRSA Screen - Final Complete Assessment Acute metabolic encephalopathy. Acute on chronic HFpEF heart failure. Atrial Fibrillation with RVR. Severe Pulmonary Hypertension. Bradycardia. Septic shock. Acute hypoxic and hypercapnic respiratory failure. Sleep apnea. Acute hypovolemic shock. Liver cirrhosis likely due to fatty liver disease. Hypoalbuminemia. Complicated UTI . RUDDY on CKD. Hypernatremia. Pancytopenia. Morbid Obesity. Plan/Recommendation I agree with your ongoing assessment and care of plan. IV Amiodarone. Diuretics with Lasix. GI prophylactics. Additional plan as per the hospital course. Critical care time of 90 minutes provided to include time spent evaluation of patient at bedside, when appropriate patient/family education for diagnosis, treatment plan, review of pertinent medical information and discussion of care with specialty providers and PCP. Plan discussed with: Patient KATELYN ARTHUR MD Sep 08, 2025 23:28
--- NOTE | 2025-09-08 23:43 | DVHPN2 ---
Subjective DOS: 09/08/2025 Patient seen and examined at bedside. S/p extubation, on BiPAP Overnight events reviewed Reviewed: H&P Changes from previous H/P or p: Changes Objective Vitals Vital Signs Date Time Temp Pulse Resp B/P (MAP) Pulse Ox O2 Delivery O2 Flow Rate FiO2 09/08/25 20:15 118 32 111/54 (73) 99 09/08/25 20:00 98.4 98.4 09/08/25 20:00 Nasal Cannula* 2 28 Intake/Output Intake and Output 09/08/25 07:00 Intake Total 812.610 ml Output Total 1400 ml Balance -587.390 ml Intake Oral 400 ml IV Total 412.610 ml Output Urine Total 1400 ml Exam Gen.: Patient lying in bed in no apparent distress. On BiPAP Head: Normocephalic, atraumatic. Eyes: EOMI/PERRLA. Ears: Normal hearing. Normal anatomy. Neck/trachea: Trachea midline, supple. Nose: Normal external anatomy. Mouth: Moist mucous membranes. Chest: Decreased air entry bilaterally. No wheezing or rhonchi. Cardiovascular: Positive S1, positive S2. Regular rate and rhythm. Abdomen: Positive bowel sounds in all 4 quadrants. Soft, non-tender, non- distended. : Deferred. Rectal: Deferred. Skin: Warm, dry. Intact. Extremities: 2+ radial pulses bilaterally. No lower extremity edema. Neuro: Awake, alert, oriented x3. No gross motor or sensory deficits. Cranial nerves II through XII intact. Gait not assessed. General Appearance: Other (intubated and sedated) HEENT: Atraumatic Cardiovascular: Regular rate, Normal S1, Normal S2 Abdomen: Normal bowel sounds Medications Current Medications Medications Dose Ordered Sig/Erum Route Start Time Stop Time Status Last Admin Dose Admin Acetaminophen 650 mg Q6HP PRN PO 08/15/25 22:15 Sodium Chloride 10 ml QSHIFT@10,22 IV 08/19/25 22:00 09/08/25 21:33 10 ML Pantoprazole Sodium 40 mg BID IV 08/22/25 10:00 09/08/25 21:33 40 MG Albumin Human 100 ml @ 100 mls/hr PRN PRN IV 08/22/25 17:00 Sodium Chloride 10 meq/Potassium Chloride 10 meq/ Calcium Gluconate 6.3 meq/Magnesium Sulfate 10 meq/ Multivitamins 10 ml/Potassium Phosphate 20 meq/ Amino Acids/ Dextrose/Purified Water 1,038.0938 ml @ 43 mls/hr Q24H9M IV 08/26/25 22:00 08/27/25 21:59 Cancel Enteral Nutritional Formula 1,000 ml 30ML/HR GT 08/26/25 15:00 09/08/25 19:27 1,000 ML Lactulose 30 ml DAILY PO 08/28/25 10:00 09/08/25 07:35 30 ML Albuterol 2.5 mg Q4HP PRN NEB 09/04/25 09:45 09/08/25 18:58 2.5 MG Purified Water 100 ml Q6HR GT 09/06/25 18:00 09/08/25 16:56 100 ML Spironolactone 50 mg DAILY PO 09/07/25 10:00 09/08/25 07:36 50 MG Folic Acid 1 mg/ Dextrose 50.2 ml @ 200.8 mls/ hr DAILY INJ 09/08/25 10:00 09/08/25 09:55 200.8 MLS/HR Ipratropium [place] 0.5 mg Q4HPRN PRN NEB 09/08/25 01:45 09/08/25 18:58 0.5 MG Amiodarone HCl 250 ml @ 33.33 mls/ hr Q7H31M IV 09/08/25 03:30 09/08/25 17:30 33.33 MLS/HR Laboratory Results Laboratory Tests 09/08/25 02:15 Chemistry Test 09/08/25 02:15 Albumin 3.7 g/dL (3.2-4.8) Calcium Level 9.3 mg/dL (8.7-10.4) Magnesium Level 2.0 mg/dL (1.6-2.6) Total Protein 7.5 g/dL (5.7-8.2) LFT Test 09/08/25 02:15 Alanine Aminotransferase (ALT) < 9 U/L (7-40) Alkaline Phosphatase 96 U/L (46-116) Aspartate Amino Transferase (AST) 28 U/L (13-40) Total Bilirubin 1.8 mg/dL (0.2-1.0) H Urinalysis Test 08/16/25 04:10 08/24/25 15:20 09/06/25 04:00 Urine WBC Clumps Present /hpf (None Seen) Urine Creatinine 50.59 mg/dL (30.0-125.0) Urine Protein/Creatinine Ratio 0.61 Urine Sodium 46 mmol/L (40-220) Urine Total Protein 30.8 mg/dL (1-14) H Urine Hyaline Casts Few /lpf (0 - 2) Urine Mucus Few (None Seen) Urine Color Yellow (Yellow) Urine Clarity Clear (Clear) Urine pH 7.5 (5.0-9.0) Urine Specific [place] 1.016 (1.001-1.035) Urine Protein 1+ (Negative) H Urine Ketones Trace (Negative) Urine Blood Negative /uL (Negative) Urine Nitrite Negative (Negative) Urine Bilirubin Negative (Negative) Urine Urobilinogen 4 mg/dL (Negative) H Urine Leukocyte Esterase Negative /uL (Negative) Urine RBC 2 /hpf (0 - 4) Urine Microscopic WBC 5 /HPF (0-5) Urine Squamous Epithelial Cells Mod /hpf (<5) Urine Bacteria None seen /hpf (None Seen) Urine Glucose Normal mg/dL (Normal) Blood Gas Results Test 09/08/25 02:39 09/08/25 07:08 09/08/25 19:42 Arterial Blood pH 7.386 (7.350-7.450) 7.440 (7.350-7.450) 7.430 (7.350-7.450) FiO2 % 80.0 36.0 28.0 Microbiology Microbiology Date/Time Source Procedure Growth Status 08/23/25 16:30 Urine - Abreu Port Urine Culture - Final Complete 08/18/25 10:55 Nose MRSA Screen - Final Complete Assessment/Plan Assessment/Plan Impression: Acute on chronic hypoxic respiratory failure Pulmonary hypertension Congestive heart failure Morbid obesity Acute on chronic renal failure Pancytopenia Events: Patient tolerated CPAP, underwent uneventful extubation yesterday Increased O2 requirements - currently on BiPAP with IPAP 14, EPAP 8, FiO2 40% Taper as tolerated Cardiology consult for arrhythmia. Amiodarone drip Follow up Cardiology recs. Obtain CXR and ABG to assess for interval changes. Continue bronchodilators. Continue antibiotics Monitor WBC. Monitor blood pressure -midodrine for BP support Remains off pressors, monitor hemodynamics No further bloody bowel movements. Monitor hemoglobin - currently stable. Protonix BID EGD reviewed, showed sliding-type hiatal hernia. S/p colonoscopy - showed diverticulosis and hemorrhoids. GI recs appreciated. Hemodialysis per Nephrology Nephrology recs appreciated Diurese with Lasix PRN Monitor renal function. Monitor electrolytes. Supplement as necessary. Monitor ins and outs. Tube feeds for nutritional support Labs and imaging reviewed. Plan: S/p extubation on 09/07 On BiPAP Titrate to keep O2 sats above 92%. Monitor respiratory status closely due to increased O2 requirements. Pressors as necessary for hemodynamic support Titrate to keep mean arterial pressure greater than 65 mmHg Continue bronchodilators. Continue antibiotics Amiodarone for AFib Follow up Cardiology recs Follow up Nephrology recs HD per Nephrology Diurese to euvolemia Monitor renal function. Monitor electrolytes. Supplement as necessary. Hyperkalemia resolved Monitor ins and outs. DVT prophylaxis. Prognosis: Poor given patient's multiple co-morbidities. Condition: Critical Rest of plan per hospitalist and other consultants. A total of 35 minutes of critical care time was spent reviewing the patient record, examining the patient, making a diagnostic and therapeutic plan, discussing this plan with the medical personnel, following up on diagnostic studies and following the patient for clinical stability excluding any and all procedures. At least 50% of this time was spent in direct, [id number] contact. Thank you, Dr. Longo, for allowing me to participate in this patient's care. Further recommendations will depend on the patient's clinical course. Please do not hesitate to contact me if you have any questions or concerns. This medical document was created using an electronic medical record system with [employer] dictation system. Although these documentations are being carefully reviewed, there may still be some phonetic and typographical changes. The errors are purely typographical, due to imperfection on the software program, and do not reflect any compromise in the patient's medical care. Plan discussed with: Other (RN) Visit Coding Pulmonary Billing Provider: SILVIA RIVAS MD Date of Service if different f: Sep 08, 2025 Common Visit Codes: [id number] INP/OBS CARE(HIGH), [id number] CARE 30-74 MIN SILVIA RIVAS MD Sep 08, 2025 23:42
[2025-09-09] VITALS (40 sets, daily range): BP systolic 108–146; BP diastolic 44–84; PULSE 62–120; RESP 15–32; TEMP 98–99.5; O2SAT 93–100
[2025-09-09 04:22] LABS: Hematocrit 26.2 % (36.0-46.0); Hemoglobin 8.7 g/dL (12.2-16.2); Mean Corpuscular Hemoglobin 29.7 pg (28.0-32.0); Mean Corpuscular Volume 89.7 fL (80.0-100.0); Nucleated Red Blood Cells % 0.1 %
[2025-09-09 04:43] LABS: Albumin 3.4 g/dL (3.2-4.8); Alkaline Phosphatase 83 U/L (46-116); Anion Gap 10 (5-15); BUN/Creatinine Ratio 15.8 (10.0-20.0); Blood Urea Nitrogen 16 mg/dL (9-23); Calcium 9.0 mg/dL (8.7-10.4); Carbon Dioxide 30 mmol/L (20-31); Chloride 107 mmol/L (98-107); Magnesium 1.9 mg/dL (1.6-2.6); Potassium 3.7 mmol/L (3.5-5.1); Total Protein 6.8 g/dL (5.7-8.2)
[2025-09-09 04:44] LABS: Alanine Aminotransferase < 9 U/L (7-40); Bilirubin, Total 1.6 mg/dL (0.2-1.0); Glucose 108 mg/dL (74-106); Sodium 147 mmol/L (136-145)
--- NOTE | 2025-09-09 05:01 | DVH ---
CHEST RADIOGRAPH Indication: SOB Technique: Single frontal view of the chest was obtained COMPARISON: XY CHEST XRAY 1 VIEW on DOS: 09/08/25, XY CHEST PORTABLE on DOS: 09/07/25, XY CHEST PORTABLE on DOS: 09/06/25, XY CHEST PORTABLE on DOS: 09/05/25, XY CHEST PORTABLE on DOS: 09/04/25 FINDINGS: Lines and Tubes: Endotracheal tube and enteric catheter in satisfactory position. Left PICC in satisfactory position. Lungs: Increased interstitial prominence. This may represent pulmonary vascular congestion and/or viral pneumonia. Pleura: No effusion. No pneumothorax. Cardiomediastinal contours: Cardiomegaly. Bones: Unremarkable IMPRESSION: Lines and tubes in satisfactory position. Increased interstitial prominence. This may represent pulmonary vascular congestion and/or viral pneumonia.
--- NOTE | 2025-09-09 13:16 | DVHPNRES ---
Progress Note Date Seen: Sep 09, 2025 Resident Creating Document: KLAUDIA LOWE RESIDENT Has the PT tested + for MRSA If YES, has PT been informed?: No Medical Necessity Reason Pt with a Central, PICC or Fol: Yes The following are medically ne: PICC Line, Abreu Catheter Subjective Review of Systems Ms. Worthington is a 65 year old female with past medical history of HFpEF liver cirrhosis, chronic atrial fibrillation, anemia with multiple blood transfusions in the past, and pulmonary hypertension, who presented to [facility] via EMS due shortness of breath. As per her sons, the patient has had progressively worsening bilateral leg edema for the last month associated with worsening shortness of breath for two weeks. They state that she is compliant with her medications, however, every few months they have to take their mom to the hospital for similar symptoms, with most recent hospitalization in late May 2025. She was seen by her home health nurse on Friday (08/15/2025) night, who told the family to call EMS. As per records, on scene she was found to have a saturation of 90% on room air, she placed on 2 L NC with improvement to 92% and brought to the emergency department. On initial evaluation in the ER, she was afebrile, MAP within normal range, saturating adequately on 2L NC. She was found to have anasarca reaching up to her thighs. 12 lead EKG showed atrial fibrillation. Initial labs are significant for pancytopenia, hyperkalemia, BUN 84, creatinine 2.14, BNP 207, troponins negative, and lipase 178. UA is consistent with a UTI. Chest Xray significant for hazy opacities throughout the right lung, and stable cardiomediastinal enlargement. The patient was started on IV Lasix, hyperkalemia protocol, IV antibiotics, and of 1 PRBC and was admitted for further work up and management. The patient was evaluated by nephrology who initially recommended diuresis, albumin and low dose dopamine, and midodrine, however, due to progressively worsening kidney function, dialysis was recommended. On 08/18/2025 patient was found lethargic and disoriented, blood gas showed hypoxic and hypercapnic respiratory failure, she was started on BiPAP and transferred to the ICU. Mentation continued to deteriorate and required intubation for airway protection and respiratory insufficiency. Patient presented two large bloody bowel movements requiring emergent transfusion of 2 PRBCs and vasopressors. She was evaluated by gastroenterology who recommended use of PPI, octreotide, and transfusions as needed with endoscopy when stable. Prior medical history: HFrEF, Liver cirrhosis, Chronic Atrial Fibrillation, Anemia s/p multiple blood transfusions, and pulmonary hypertension Prior surgical history: 3 c-sections Social: Sons deny any previous drug, tobacco, or alcohol use. She recently moved to the area to live with her son, Dalia. 09/05/2025: Patient was seen at bedside. Patient failed CPAP trial yesterday due to low tidal volume, tachycardia, tachypnea. Patient was diuresing very well with output -2056. Holding off IV Lasix, discontinued meropenem. Repeat urine analysis ordered. Patient is day 17 of intubation, discussed tracheostomy option with family if CPAP trial fails. Patient's son, who is the POA demonstrated understanding, we will continue this discussion after CPAP trial tomorrow. 09/06/2025: Today, CPAP trial stopped after 3-1/2 hours due to tachypnea, low tidal volume and accessory muscle use. Labs show elevated sodium, ordered free water. IV spironolactone before CPAP trial in morning tomorrow. 09/07/2025: Patient was seen at bedside. No significant overnight events. CPAP trial today in morning further on 04/19 pressures. Patient was eventually extubated. Ordered folic acid, Lasix 20. We will try feeding tomorrow. Patient had low-sodium, supplemented. Continue free water in context of hypernatremia. 09/08/2025: Patient was seen at bedside. Patient was extubated yesterday. Tachypnea overnight, required BiPAP. Patient had low-grade fever overnight. Patient had tachycardia overnight, switched p.o. amiodarone to drip. On 2 L oxygen with nasal cannula during daytime. As the day progressed patient started getting dyspneic, started on BiPAP. Pressure setting changed, FiO2 reduced to 30%, EPAP 8. ABG and CXR ordered. Continue on nightly BiPAP. We will continue Lasix p.r.n.. We will closely monitor WBC count. Discharge planning based on PT recommendations. 09/09/2025: Patient was seen at bedside. No significant overnight events. Patient was transferred to telemetry. Chest x-ray shows increased pulmonary vascular congestion. Physical therapy on board. Per nurse, physical therapy was unable to work with patient due to tachycardia with RVR. Objective vital signs Vital Sign Date Time Temp Pulse Resp B/P (MAP) Pulse Ox O2 Delivery O2 Flow Rate FiO2 09/09/25 10:30 99 Nasal Cannula 2.0 09/09/25 10:30 28 09/09/25 10:00 18 09/09/25 09:00 99.5 105 139/70 (93) 99.5 Total Intake and Output 09/08/25 09/08/25 09/09/25 15:00 23:00 07:00 Intake Total 316.84 ml 516.64 ml 399.98 ml Output Total 600 ml 710 ml Balance 316.84 ml -83.36 ml -310.02 ml medications Current Medications Medications Dose Ordered Sig/Erum Route Start Time Stop Time Status Last Admin Dose Admin Acetaminophen 650 mg Q6HP PRN PO 08/15/25 22:15 Sodium Chloride 10 ml QSHIFT@10,22 IV 08/19/25 22:00 09/09/25 10:08 10 ML Pantoprazole Sodium 40 mg BID IV 08/22/25 10:00 09/09/25 10:08 40 MG Albumin Human 100 ml @ 100 mls/hr PRN PRN IV 08/22/25 17:00 Sodium Chloride 10 meq/Potassium Chloride 10 meq/ Calcium Gluconate 6.3 meq/Magnesium Sulfate 10 meq/ Multivitamins 10 ml/Potassium Phosphate 20 meq/ Amino Acids/ Dextrose/Purified Water 1,038.0938 ml @ 43 mls/hr Q24H9M IV 08/26/25 22:00 08/27/25 21:59 Cancel Enteral Nutritional Formula 1,000 ml 30ML/HR GT 08/26/25 15:00 09/08/25 19:27 1,000 ML Lactulose 30 ml DAILY PO 08/28/25 10:00 09/09/25 10:08 30 ML Albuterol 2.5 mg Q4HP PRN NEB 09/04/25 09:45 09/08/25 18:58 2.5 MG Purified Water 100 ml Q6HR GT 09/06/25 18:00 09/09/25 10:11 100 ML Spironolactone 50 mg DAILY PO 09/07/25 10:00 09/09/25 10:11 50 MG Folic Acid 1 mg/ Dextrose 50.2 ml @ 200.8 mls/ hr DAILY INJ 09/08/25 10:00 09/09/25 10:10 200.8 MLS/HR Ipratropium [place] 0.5 mg Q4HPRN PRN NEB 09/08/25 01:45 09/08/25 18:58 0.5 MG Amiodarone HCl 250 ml @ 33.33 mls/ hr Q7H31M IV 09/08/25 03:30 09/09/25 10:09 33.33 MLS/HR Examination General: A&O x3; Opens eyes spontaneously. HEENT: Pupils B/L equal and reactive to light. Normocephalic, atraumatic. Whispering. Respiratory/pulmonary: Clear bilateral breath sounds. Cardiovascular: Irregular heart rate Abdomen: Soft abdomen on palpation, normal bowel sounds Extremities: Warm bilateral extremities. B/L upper arm ecchymosis. Trace pitting edema in B/L upper and lower extremities. Skin: Small partial thickness linear skin tears (healing with scabs) approximately 0.5X1 cm in abdominal folds, left arm and left lower leg, healing with scabs. Neurological: Patient is A&O x3, following commands. Motor strength 3/5 laboratory and microbiology Laboratory Tests 09/09/25 03:56 Test 09/09/25 03:56 Range/Units Serum Glucose 108 H 74-106 mg/dL Microbiology Date/Time Source Procedure Growth Status 08/23/25 16:30 Urine - Abreu Port Urine Culture - Final Complete 08/18/25 10:55 Nose MRSA Screen - Final Complete Problem List/Assessment/Plan Problem List/Assessment/Plan Neurology # Sedation, Analgesia Propofol 10 mcg/kg/hr Fentanyl 150 mcg/hr # Acute metabolic encephalopathy likely due to hyperammonemia Ammonia levels have normalized. Cardiovascular # Acute on chronic HFpEF heart failure Likely precipitated by fluid overload and sepsis Echocardiogram: LVEF 50%. mild mitral regurgitation. mild tricuspid regurgitation. mild to moderate pulmonic regurgitation Bumex drip, Furosemide 20 mg IV discontinued Jardiance, Furosemide, and carvedilol held at this time CXR on 09/01/2025 show increased right hemithorax pleural opacification. Reduce Furosemide 40 mg IV from b.i.d. dosing to once daily. Holding off IV Lasix Cardiology on board. Per cardiology, IV amiodarone, diuretics with Lasix, GI prophylaxis. # Chronic Atrial Fibrillation Amiodarone - held due to bradycardia # Severe Pulmonary Hypertension Sildenafil held Ambrisentan 5 mg held # Bradycardia Midodrine 10 mg TID Discontinued Dopamine 2 mcg d/t tachycardia # Septic shock (POA Unable to determine) Holding Levophed Respiratory # Ventilator Intubated (08/19/2025) Extubated on 09/07/2025 # Acute hypoxic respiratory failure # Acute hypercapnic respiratory failure # Sleep apnea, possible # Obesity hyperventilation syndrome, possible S/p extubation Blood gas show normalization of pH, pCO2, pO2 On 2 L oxygen with nasal cannula during daytime. Started on BiPAP d/t respiratory distress. Pressure settings changed, FiO2 reduced to 30%, EPAP 8. ABG and CXR ordered. Continue on nightly BiPAP. # Pulmonary Edema with bilateral pleural effusions Chest xray: Stable appearing pulmonary edema and small bilateral pleural effusions. # Pneumonia, ruled out Azithromycin discontinued Gastrointestinal # Acute hypovolemic shock likely due to Lower GI Bleed # Segmental ischemic colitis or diverticular disease, possible 8 PRBC transfusions, 4 FFPs, 5 Platelet transfusions Stool occult positive, discontinued Sandostatin Protonix 40 mg IV BID Vasopressin (holding off for now) Quadlevo discontinued Dopamine switched to Levophed d/t Tachycardia; NS 250 cc bolus given H&H stable; continue monitoring Completed Bedside colonoscopy today. As per GI specialist, patient has diverticulosis, likely the source GI bleed. No active bleed seen. # Liver cirrhosis likely due to fatty liver disease # Acute metabolic encephalopathy likely due to hyperammonemia # Hypoalbuminemia MELD score 26 Continue lactulose Monitor ammonia Albumin supplemented Continue IV Lasix 20 mg PRN Continue spironolactone # Cholelithaisis Abdominal US: The gallbladder wall measures 0.3 cm and is normal in size. Gallstones are noted. # 2 cm sliding type hiatal hernia # Mild gastritis EGD 08/26/2025: 1-2 cm sliding-type hiatal hernia with no significant erosive esophagitis, mild gastritis involving the antrum and body of the stomach with some linear gastric erosions GI recommended Protonix 40 mg b.i.d. IV, discontinue IV Sandostatin drip, continue to monitor labs and transfuse if hemoglobin drops below 7, elective colonoscopy once medically stabilized Continue IV iron therapy CT scan of the abdomen pelvis shows liver cirrhosis, splenomegaly. Pulmonary hypertension, B/L LL opacities. Enlargement of the uterus with a lobulated contour and scattered calcifications, possibly referable to fibroids. Genitourinary # Abreu catheter present draining clear urine # Complicated UTI Urine culture: E coli ESBL Discontinued Meropenem UA shows signs of improved infection UC: No growth after 48 hours Urine analysis from 09/06/25 negative for UTI Nephrology # RUDDY on CKD likely due to hemodynamically mediated (d/t VMN) Per nephrology, renal function is improving, dialysis is being held at this time. Jose M catheter remain in its place due to thrombocytopenia until patient is more stabilized. # Hyperkalemia, resolved # Hypernatremia Monitor BMP D5 given Infectious disease # Sepsis d/t below (POA Unable to determine) # Possible Septic Shock due to below (POA Unable to determine) # Complicated ESBL UTI D/c'd Meropenem 1 g IV BID Urine Culture: E. Coli ESBL Follow up UA shows improvement; Follow up UC shows no growth at 48 hours Vasopressin (holding off for now) Quadlevo discontinued Hem/onc # Acute hypovolemic shock likely due to Lower GI Bleed Managed w/ 8 PRBC transfusions, 4 FFPs, 5 Platelet transfusions D/c Sandostatin drip Protonix 40 mg IV BID Dopamine switched to Levophed d/t Tachycardia (08/29/25); Levophed discontinued in context of SBP> 90 # Pancytopenia Possibly associated to liver cirrhosis We will closely monitor WBC count. Endocrinology # Morbid Obesity BMI 57.4 DVT prophylaxis: SCDs Peptic ulcer prophylaxis: Pantoprazole 40 mg IV BID Nutrition: Passed bedside swallow eval, trial of p.o nutrition with close supervision. Aspiration precautions ordered Lines -R PICC line 08/19 -Abreu catheter 08/19 -ET tube: 08/19 -Jose M catheter 08/19 [facility]: Propofol 10 mcg/kg/min Fentanyl 150 mcg/hr Vasopressin held Quadlevo discontinued Sandostatin discontinued Dopamine discontinued Levophed started (08/29/25) held Patient on vasopressin (holding off for now), Levophed discontinued in context of SBP> 90. Dopamine discontinued d/t elevated heart rate. Patient is in critical condition, all findings and care plan discussed with her son at bedside. Questions and concerns were thoroughly addressed, prognosis is poor. Critical care time 49 minutes excluding procedure. Code status discussed greater than 20 minutes: Full CODE STATUS. Family at bedside explained about the condition of the patient. Goals of care discussed with son on bedside. Plan discussed with Dr. Puga Plan discussed with: Daughter, Son, Other (nurses) My Orders My Orders Orders - KLAUDIA LOWE RESIDENT Procedure Category Date Status Time Chest Portable XY 09/09/25 Resulted 04:00 * Cardiology Consult CONS 09/08/25 Transmitted 19:09 Communication Order ORDERS 09/08/25 Transmitted 19:09 Abg W/ Co-Ox RT 09/08/25 Logged 20:00 Strict Aspiration GILDARDO 09/09/25 In Process Precautions 06:53 Consult Care CONS 09/09/25 Transmitted Coordinator Cardiac DIET 09/09/25 Transmitted Diet-2gna,Lofat,Lochol Lunch CC Plasma Assessment Blood Product Administration S: 1245 Visit Coding STANDARD RES Billing Provider: SILVIA PUGA MD Date of Service if different f: Sep 09, 2025 Common Visit Codes: [id number] INP/OBS CARE(HIGH) Secondary Visit Codes: [id number] CARE PLAN 30 MINUTES KLAUDIA LOWE RESIDENT Sep 09, 2025 13:16
--- NOTE | 2025-09-09 16:14 | DVHPN2 ---
Progress Note - Dictate Date Seen: Sep 09, 2025 Has the PT tested + for MRSA If YES, has PT been informed?: No Medical Necessity Reason Pt with a Central, PICC or Fol: Yes The following are medically ne: PICC Line, Abreu Catheter Subjective Patient was seen and evaluated in follow up. Patient was downgraded to tele bed. Patient is complaining of a productive cough. Patient passed swallow eval. Patient remains on Amiodarone drip. WBC 2.2, HGB 8.7, HCT 26.2, NA 147. Chest x- ray shows increased interstitial prominence. Telemetry reviewed. vital signs Vital Sign Date Time Temp Pulse Resp B/P (MAP) Pulse Ox O2 Delivery O2 Flow Rate FiO2 09/09/25 10:30 99 Nasal Cannula 2.0 09/09/25 10:30 28 09/09/25 10:00 18 09/09/25 09:00 99.5 105 139/70 (93) 99.5 Total Intake and Output 09/08/25 09/08/25 09/09/25 15:00 23:00 07:00 Intake Total 316.84 ml 516.64 ml 399.98 ml Output Total 600 ml 710 ml Balance 316.84 ml -83.36 ml -310.02 ml medications Current Medications Medications Dose Ordered Sig/Erum Route Start Time Stop Time Status Last Admin Dose Admin Acetaminophen 650 mg Q6HP PRN PO 08/15/25 22:15 Sodium Chloride 10 ml QSHIFT@10,22 IV 08/19/25 22:00 09/09/25 10:08 10 ML Pantoprazole Sodium 40 mg BID IV 08/22/25 10:00 09/09/25 10:08 40 MG Albumin Human 100 ml @ 100 mls/hr PRN PRN IV 08/22/25 17:00 Sodium Chloride 10 meq/Potassium Chloride 10 meq/ Calcium Gluconate 6.3 meq/Magnesium Sulfate 10 meq/ Multivitamins 10 ml/Potassium Phosphate 20 meq/ Amino Acids/ Dextrose/Purified Water 1,038.0938 ml @ 43 mls/hr Q24H9M IV 08/26/25 22:00 08/27/25 21:59 Cancel Enteral Nutritional Formula 1,000 ml 30ML/HR GT 08/26/25 15:00 09/08/25 19:27 1,000 ML Lactulose 30 ml DAILY PO 08/28/25 10:00 09/09/25 10:08 30 ML Albuterol 2.5 mg Q4HP PRN NEB 09/04/25 09:45 09/08/25 18:58 2.5 MG Purified Water 100 ml Q6HR GT 09/06/25 18:00 09/09/25 10:11 100 ML Spironolactone 50 mg DAILY PO 09/07/25 10:00 09/09/25 10:11 50 MG Folic Acid 1 mg/ Dextrose 50.2 ml @ 200.8 mls/ hr DAILY INJ 09/08/25 10:00 09/09/25 10:10 200.8 MLS/HR Ipratropium [place] 0.5 mg Q4HPRN PRN NEB 09/08/25 01:45 09/08/25 18:58 0.5 MG Amiodarone HCl 250 ml @ 33.33 mls/ hr Q7H31M IV 09/08/25 03:30 09/09/25 10:09 33.33 MLS/HR objective GENERAL: Alert and oriented x 3. Ill appearing, morbidly obese. EYES: PERRL, EOMI. Anicteric. HENT: Moist mucous membranes. LUNGS: Decreased breath sounds. CARDIOVASCULAR: Irregular rate and rhythm. ABDOMEN: Soft, non-tender and non-distended. EXTREMITIES: No edema. NEUROLOGIC: No focal neurological deficits. SKIN: Warm, dry. laboratory and microbiology Laboratory Tests 09/09/25 03:56 Test 09/09/25 03:56 Range/Units Serum Glucose 108 H 74-106 mg/dL Problem List Acute metabolic encephalopathy. Acute on chronic HFpEF heart failure. Atrial Fibrillation with RVR. Severe Pulmonary Hypertension. Bradycardia. Septic shock. Acute hypoxic and hypercapnic respiratory failure. Sleep apnea. Acute hypovolemic shock. Liver cirrhosis likely due to fatty liver disease. Hypoalbuminemia. Complicated UTI . RUDDY on CKD. Hypernatremia. Pancytopenia. Morbid Obesity. Assessment/Plan Continued all current supportive medical care. IV Amiodarone. GI prophylactics. Nebulized breathing treatments. Additional plan as per the hospital course. Plan discussed with: Patient CC Plasma Assessment Blood Product Administration S: [id number] KATELYN ARTHUR MD Sep 09, 2025 13:09
--- NOTE | 2025-09-09 18:35 | DVHPN2 ---
Progress Note - Dictate Date Seen: Sep 09, 2025 Has the PT tested + for MRSA If YES, has PT been informed?: No Medical Necessity Reason Pt with a Central, PICC or Fol: Yes The following are medically ne: PICC Line, Abreu Catheter Subjective Patient extubated and downgraded to the floor on nasal cannula No active GI bleeding, normal brown stool, hemoglobin stable at 8.7 Patient has mild neutropenia improving EGD was negative, small hiatal hernia mild gastritis no bleeding Colonoscopy showed diverticulosis Patient is complaining of a productive cough. Patient passed swallow eval. Patient remains on Amiodarone drip. Chest x-ray shows increased interstitial prominence. vital signs Vital Sign Date Time Temp Pulse Resp B/P (MAP) Pulse Ox O2 Delivery O2 Flow Rate FiO2 09/09/25 16:00 20 97 Nasal Cannula* 2 28 09/09/25 13:00 98.7 102 146/79 (101) 98.7 Total Intake and Output 09/08/25 09/08/25 09/09/25 15:00 23:00 07:00 Intake Total 316.84 ml 516.64 ml 399.98 ml Output Total 600 ml 710 ml Balance 316.84 ml -83.36 ml -310.02 ml medications Current Medications Medications Dose Ordered Sig/Erum Route Start Time Stop Time Status Last Admin Dose Admin Acetaminophen 650 mg Q6HP PRN PO 08/15/25 22:15 Sodium Chloride 10 ml QSHIFT@10,22 IV 08/19/25 22:00 09/09/25 10:08 10 ML Pantoprazole Sodium 40 mg BID IV 08/22/25 10:00 09/09/25 10:08 40 MG Albumin Human 100 ml @ 100 mls/hr PRN PRN IV 08/22/25 17:00 Sodium Chloride 10 meq/Potassium Chloride 10 meq/ Calcium Gluconate 6.3 meq/Magnesium Sulfate 10 meq/ Multivitamins 10 ml/Potassium Phosphate 20 meq/ Amino Acids/ Dextrose/Purified Water 1,038.0938 ml @ 43 mls/hr Q24H9M IV 08/26/25 22:00 08/27/25 21:59 Cancel Enteral Nutritional Formula 1,000 ml 30ML/HR GT 08/26/25 15:00 09/08/25 19:27 1,000 ML Lactulose 30 ml DAILY PO 08/28/25 10:00 09/09/25 10:08 30 ML Albuterol 2.5 mg Q4HP PRN NEB 09/04/25 09:45 09/08/25 18:58 2.5 MG Purified Water 100 ml Q6HR GT 09/06/25 18:00 09/09/25 18:10 100 ML Spironolactone 50 mg DAILY PO 09/07/25 10:00 09/09/25 10:11 50 MG Folic Acid 1 mg/ Dextrose 50.2 ml @ 200.8 mls/ hr DAILY INJ 09/08/25 10:00 09/09/25 10:10 200.8 MLS/HR Ipratropium [place] 0.5 mg Q4HPRN PRN NEB 09/08/25 01:45 09/08/25 18:58 0.5 MG Amiodarone HCl 250 ml @ 33.33 mls/ hr Q7H31M IV 09/08/25 03:30 09/09/25 16:54 33.33 MLS/HR objective General: Obese, afebrile, palor, mucosae are moist Cardiovascular: Regular S1 and S2. No murmurs, gallops or rubs. No JVD elevation. Bilateral pedal edema. Respiratory: Decreased breath sounds heard on auscultation, extubated on 2 L nasal cannula Abdomen: Soft, nontender, nondistended, hypoactive bowel sounds, no rebound tenderness, no organomegaly, no masses Genitourinary: Abreu catheter seen Neurological: Pupils are isocoric and reactive. laboratory and microbiology Laboratory Tests 09/09/25 03:56 Test 09/09/25 03:56 Range/Units Serum Glucose 108 H 74-106 mg/dL Problems(with codes): (1) Neutropenia (2) CHF exacerbation (3) Rectal bleeding (4) Thrombocytopenia (5) Hypoxemia (6) Anemia (7) Acute dyspnea (8) Acute renal failure (9) Hypoxic respiratory failure (10) Acute on chronic heart failure (11) Anasarca Prognosis Plan Continue tube feedings via the NG tube Monitor labs Continued all current supportive medical care. IV Amiodarone. GI prophylactics. Nebulized breathing treatments. Additional plan as per the hospital course. Plan discussed with: Patient CC Plasma Assessment Blood Product Administration S: 12:45 STEPHANIE CLAYTON MD Sep 09, 2025 18:35
--- NOTE | 2025-09-09 22:19 | DVHPN2 ---
Subjective DOS: 09/09/2025 Patient seen and examined at bedside. Currently on supplemental oxygen Overnight events reviewed Reviewed: H&P Changes from previous H/P or p: No Changes Objective Vitals Vital Signs Date Time Temp Pulse Resp B/P (MAP) Pulse Ox O2 Delivery O2 Flow Rate FiO2 09/09/25 16:00 20 97 Nasal Cannula* 2 28 09/09/25 13:00 98.7 102 146/79 (101) 98.7 Intake/Output Intake and Output 09/09/25 07:00 Intake Total 1233.46 ml Output Total 1310 ml Balance -76.54 ml Intake Oral 450 ml IV Total 783.46 ml Output Urine Total 1310 ml # Bowel Movements 2 Exam Gen.: Patient lying in bed in no apparent distress. On supplemental oxygen Head: Normocephalic, atraumatic. Eyes: EOMI/PERRLA. Ears: Normal hearing. Normal anatomy. Neck/trachea: Trachea midline, supple. Nose: Normal external anatomy. Mouth: Moist mucous membranes. Chest: Decreased air entry bilaterally. No wheezing or rhonchi. Cardiovascular: Positive S1, positive S2. Regular rate and rhythm. Abdomen: Positive bowel sounds in all 4 quadrants. Soft, non-tender, non- distended. : Deferred. Rectal: Deferred. Skin: Warm, dry. Intact. Extremities: 2+ radial pulses bilaterally. No lower extremity edema. Neuro: Awake, alert, oriented x3. No gross motor or sensory deficits. Cranial nerves II through XII intact. Gait not assessed. General Appearance: Other (intubated and sedated) HEENT: Atraumatic Cardiovascular: Regular rate, Normal S1, Normal S2 Abdomen: Normal bowel sounds Medications Current Medications Medications Dose Ordered Sig/Erum Route Start Time Stop Time Status Last Admin Dose Admin Acetaminophen 650 mg Q6HP PRN PO 08/15/25 22:15 Sodium Chloride 10 ml QSHIFT@,22 IV 08/19/25 22:00 09/09/25 10:08 10 ML Pantoprazole Sodium 40 mg BID IV 08/22/25 10:00 09/09/25 10:08 40 MG Albumin Human 100 ml @ 100 mls/hr PRN PRN IV 08/22/25 17:00 Sodium Chloride 10 meq/Potassium Chloride 10 meq/ Calcium Gluconate 6.3 meq/Magnesium Sulfate 10 meq/ Multivitamins 10 ml/Potassium Phosphate 20 meq/ Amino Acids/ Dextrose/Purified Water 1,038.0938 ml @ 43 mls/hr Q24H9M IV 08/26/25 22:00 08/27/25 21:59 Cancel Enteral Nutritional Formula 1,000 ml 30ML/HR GT 08/26/25 15:00 09/08/25 19:27 1,000 ML Lactulose 30 ml DAILY PO 08/28/25 10:00 09/09/25 10:08 30 ML Albuterol 2.5 mg Q4HP PRN NEB 09/04/25 09:45 09/08/25 18:58 2.5 MG Purified Water 100 ml Q6HR GT 09/06/25 18:00 09/09/25 18:10 100 ML Spironolactone 50 mg DAILY PO 09/07/25 10:00 09/09/25 10:11 50 MG Folic Acid 1 mg/ Dextrose 50.2 ml @ 200.8 mls/ hr DAILY INJ 09/08/25 10:00 09/09/25 10:10 200.8 MLS/HR Ipratropium [place] 0.5 mg Q4HPRN PRN NEB 09/08/25 01:45 09/08/25 18:58 0.5 MG Amiodarone HCl 250 ml @ 33.33 mls/ hr Q7H31M IV 09/08/25 03:30 09/09/25 16:54 33.33 MLS/HR Laboratory Results Laboratory Tests 09/09/25 03:56 Chemistry Test 09/09/25 03:56 Albumin 3.4 g/dL (3.2-4.8) Calcium Level 9.0 mg/dL (8.7-10.4) Magnesium Level 1.9 mg/dL (1.6-2.6) Total Protein 6.8 g/dL (5.7-8.2) LFT Test 09/09/25 03:56 Alanine Aminotransferase (ALT) < 9 U/L (7-40) Alkaline Phosphatase 83 U/L (46-116) Aspartate Amino Transferase (AST) 25 U/L (13-40) Total Bilirubin 1.6 mg/dL (0.2-1.0) H Urinalysis Test 08/16/25 04:10 08/24/25 15:20 09/06/25 04:00 Urine WBC Clumps Present /hpf (None Seen) Urine Creatinine 50.59 mg/dL (30.0-125.0) Urine Protein/Creatinine Ratio 0.61 Urine Sodium 46 mmol/L (40-220) Urine Total Protein 30.8 mg/dL (1-14) H Urine Hyaline Casts Few /lpf (0 - 2) Urine Mucus Few (None Seen) Urine Color Yellow (Yellow) Urine Clarity Clear (Clear) Urine pH 7.5 (5.0-9.0) Urine Specific [place] 1.016 (1.001-1.035) Urine Protein 1+ (Negative) H Urine Ketones Trace (Negative) Urine Blood Negative /uL (Negative) Urine Nitrite Negative (Negative) Urine Bilirubin Negative (Negative) Urine Urobilinogen 4 mg/dL (Negative) H Urine Leukocyte Esterase Negative /uL (Negative) Urine RBC 2 /hpf (0 - 4) Urine Microscopic WBC 5 /HPF (0-5) Urine Squamous Epithelial Cells Mod /hpf (<5) Urine Bacteria None seen /hpf (None Seen) Urine Glucose Normal mg/dL (Normal) Microbiology Microbiology Date/Time Source Procedure Growth Status 08/23/25 16:30 Urine - Abreu Port Urine Culture - Final Complete 08/18/25 10:55 Nose MRSA Screen - Final Complete Assessment/Plan Assessment/Plan Impression: Acute on chronic hypoxic respiratory failure Pulmonary hypertension Congestive heart failure Morbid obesity Acute on chronic renal failure Pancytopenia Events: Patient is currently on supplemental O2 On 2 LPM NC Taper O2 as tolerated BiPAP at night Patient is complaining of a productive cough. CTAB on exam Patient passed swallow eval. HOB elevation Aspiration precautions Diet is puree diet. Recommend PT, SNF Placement Labs reviewed; WBC 2.2, HGB 8.7, HCT 26.2, NA 147. Chest x-ray shows increased interstitial prominence ABG reviewed, compensated Cardiology consulted for arrhythmia. Remains on amiodarone drip Cardiology recs appreciated Continue bronchodilators. Completed antibiotics Monitor WBC. Sodium of 147 IV fluids with D5W for 12 hours Monitor blood pressure -midodrine for BP support Remains off pressors, monitor hemodynamics No further bloody bowel movements. Monitor hemoglobin - currently stable. Protonix BID EGD reviewed, showed sliding-type hiatal hernia. S/p colonoscopy - showed diverticulosis and hemorrhoids. GI recs appreciated. Hemodialysis per Nephrology Nephrology recs appreciated Diurese with Lasix PRN Monitor renal function. Monitor electrolytes. Supplement as necessary. Monitor ins and outs. Tube feeds for nutritional support Labs and imaging reviewed. Plan: Supplemental oxygen Titrate to keep O2 sats above 92%. BiPAP at nighttime Pressors as necessary for hemodynamic support Titrate to keep mean arterial pressure greater than 65 mmHg Continue bronchodilators. Continue antibiotics Amiodarone for AFib Follow up Cardiology recs Follow up Nephrology recs HD per Nephrology Diurese to euvolemia Monitor renal function. Monitor electrolytes. Supplement as necessary. Hyperkalemia resolved Monitor ins and outs. DVT prophylaxis. Prognosis: Poor given patient's multiple co-morbidities. Rest of plan per hospitalist and other consultants. Thank you, Dr. Longo, for allowing me to participate in this patient's care. Further recommendations will depend on the patient's clinical course. Please do not hesitate to contact me if you have any questions or concerns. This medical document was created using an electronic medical record system with [employer] dictation system. Although these documentations are being carefully reviewed, there may still be some phonetic and typographical changes. The errors are purely typographical, due to imperfection on the software program, and do not reflect any compromise in the patient's medical care. Plan discussed with: Other (RYAN Prater) Visit Coding Pulmonary Billing Provider: SILVIA RIVAS MD Date of Service if different f: Sep 09, 2025 Common Visit Codes: 97982-[id number] INP/OBS CARE(HIGH) SILVIA RIVAS MD Sep 09, 2025 22:19
[2025-09-10] VITALS (19 sets, daily range): BP systolic 114–147; BP diastolic 64–83; PULSE 78–117; RESP 17–39; TEMP 97.6–98.7; O2SAT 84–100
[2025-09-10 06:39] LABS: Hematocrit 27.5 % (36.0-46.0); Hemoglobin 9.1 g/dL (12.2-16.2); Mean Corpuscular Hemoglobin 29.4 pg (28.0-32.0); Mean Corpuscular Volume 89.4 fL (80.0-100.0); Nucleated Red Blood Cells % 0.0 %
[2025-09-10 06:44] LABS: Albumin 3.7 g/dL (3.2-4.8); Alkaline Phosphatase 85 U/L (46-116); Anion Gap 14 (5-15); BUN/Creatinine Ratio 11.6 (10.0-20.0); Blood Urea Nitrogen 11 mg/dL (9-23); Calcium 9.0 mg/dL (8.7-10.4); Carbon Dioxide 26 mmol/L (20-31); Chloride 107 mmol/L (98-107); Glucose 103 mg/dL (74-106); Potassium 3.6 mmol/L (3.5-5.1); Total Protein 7.3 g/dL (5.7-8.2)
[2025-09-10 06:53] LABS: Bilirubin, Total 1.6 mg/dL (0.2-1.0); Sodium 147 mmol/L (136-145)
[2025-09-10 07:09] LABS: Alanine Aminotransferase < 9 U/L (7-40)
--- NOTE | 2025-09-10 09:57 | ECG ---
[facility] Test Date: 2025-09-06 Test Time: 18:07:28 Pat Name: RAIZA TUCKER Department: icu Room: 0201T A Gender: F [employer]: [place] : 1960 Requested By: ALINA GALLO Order Number: [id number] Reading MD: Dalton Zhang Measurements Intervals [place] Rate: 150 P: 0 NV: 0 QRS: 114 QRSD: 111 T: 183 QT: 309 QTc: 489 Interpretive Statements Atrial fibrillation Low voltage, precordial leads Consider right ventricular hypertrophy Repolarization abnormality, prob rate related Electronically Signed On 09-15-2025 15:57:23 PST by Dalton Zhang Please click the below link to view image of tracing.
--- NOTE | 2025-09-10 15:52 | DVHPNRES ---
Progress Note Date Seen: Sep 10, 2025 Resident Creating Document: KLAUDIA LOWE RESIDENT Has the PT tested + for MRSA If YES, has PT been informed?: No Medical Necessity Reason Pt with a Central, PICC or Fol: Yes The following are medically ne: PICC Line, Abreu Catheter Subjective Review of Systems Ms. Worthington is a 65 year old female with past medical history of HFpEF liver cirrhosis, chronic atrial fibrillation, anemia with multiple blood transfusions in the past, and pulmonary hypertension, who presented to [facility] via EMS due shortness of breath. As per her sons, the patient has had progressively worsening bilateral leg edema for the last month associated with worsening shortness of breath for two weeks. They state that she is compliant with her medications, however, every few months they have to take their mom to the hospital for similar symptoms, with most recent hospitalization in late May 2025. She was seen by her home health nurse on Friday (08/15/2025) night, who told the family to call EMS. As per records, on scene she was found to have a saturation of 90% on room air, she placed on 2 L NC with improvement to 92% and brought to the emergency department. On initial evaluation in the ER, she was afebrile, MAP within normal range, saturating adequately on 2L NC. She was found to have anasarca reaching up to her thighs. 12 lead EKG showed atrial fibrillation. Initial labs are significant for pancytopenia, hyperkalemia, BUN 84, creatinine 2.14, BNP 207, troponins negative, and lipase 178. UA is consistent with a UTI. Chest Xray significant for hazy opacities throughout the right lung, and stable cardiomediastinal enlargement. The patient was started on IV Lasix, hyperkalemia protocol, IV antibiotics, and of 1 PRBC and was admitted for further work up and management. The patient was evaluated by nephrology who initially recommended diuresis, albumin and low dose dopamine, and midodrine, however, due to progressively worsening kidney function, dialysis was recommended. On 08/18/2025 patient was found lethargic and disoriented, blood gas showed hypoxic and hypercapnic respiratory failure, she was started on BiPAP and transferred to the ICU. Mentation continued to deteriorate and required intubation for airway protection and respiratory insufficiency. Patient presented two large bloody bowel movements requiring emergent transfusion of 2 PRBCs and vasopressors. She was evaluated by gastroenterology who recommended use of PPI, octreotide, and transfusions as needed with endoscopy when stable. Prior medical history: HFrEF, Liver cirrhosis, Chronic Atrial Fibrillation, Anemia s/p multiple blood transfusions, and pulmonary hypertension Prior surgical history: 3 c-sections Social: Sons deny any previous drug, tobacco, or alcohol use. She recently moved to the area to live with her son, Dalia. 09/05/2025: Patient was seen at bedside. Patient failed CPAP trial yesterday due to low tidal volume, tachycardia, tachypnea. Patient was diuresing very well with output -2056. Holding off IV Lasix, discontinued meropenem. Repeat urine analysis ordered. Patient is day 17 of intubation, discussed tracheostomy option with family if CPAP trial fails. Patient's son, who is the POA demonstrated understanding, we will continue this discussion after CPAP trial tomorrow. 09/06/2025: Today, CPAP trial stopped after 3-1/2 hours due to tachypnea, low tidal volume and accessory muscle use. Labs show elevated sodium, ordered free water. IV spironolactone before CPAP trial in morning tomorrow. 09/07/2025: Patient was seen at bedside. No significant overnight events. CPAP trial today in morning further on 04/19 pressures. Patient was eventually extubated. Ordered folic acid, Lasix 20. We will try feeding tomorrow. Patient had low-sodium, supplemented. Continue free water in context of hypernatremia. 09/08/2025: Patient was seen at bedside. Patient was extubated yesterday. Tachypnea overnight, required BiPAP. Patient had low-grade fever overnight. Patient had tachycardia overnight, switched p.o. amiodarone to drip. On 2 L oxygen with nasal cannula during daytime. As the day progressed patient started getting dyspneic, started on BiPAP. Pressure setting changed, FiO2 reduced to 30%, EPAP 8. ABG and CXR ordered. Continue on nightly BiPAP. We will continue Lasix p.r.n.. We will closely monitor WBC count. Discharge planning based on PT recommendations. 09/09/2025: Patient was seen at bedside. No significant overnight events. Patient was transferred to telemetry. Chest x-ray shows increased pulmonary vascular congestion. Physical therapy on board. Per nurse, physical therapy was unable to work with patient due to tachycardia with RVR. 09/10/2025: Patient seen on bedside. Patient was sleepy and tired. Currently on 2 L room air. A&O x3, no new complaints. PT on board. Objective vital signs Vital Sign Date Time Temp Pulse Resp B/P (MAP) Pulse Ox O2 Delivery O2 Flow Rate FiO2 09/10/25 14:00 78 09/10/25 12:57 98.5 19 114/64 (81) 99 98.5 09/10/25 08:00 Nasal Cannula* 2 28 Total Intake and Output 09/09/25 09/09/25 09/10/25 15:00 23:00 07:00 Intake Total 150.2 ml 399.96 ml 516 ml Output Total 350 ml 350 ml Balance 150.2 ml 49.96 ml 166 ml medications Current Medications Medications Dose Ordered Sig/Erum Route Start Time Stop Time Status Last Admin Dose Admin Acetaminophen 650 mg Q6HP PRN PO 08/15/25 22:15 Sodium Chloride 10 ml QSHIFT@10,22 IV 08/19/25 22:00 09/10/25 09:41 10 ML Pantoprazole Sodium 40 mg BID IV 08/22/25 10:00 09/10/25 09:41 40 MG Albumin Human 100 ml @ 100 mls/hr PRN PRN IV 08/22/25 17:00 Sodium Chloride 10 meq/Potassium Chloride 10 meq/ Calcium Gluconate 6.3 meq/Magnesium Sulfate 10 meq/ Multivitamins 10 ml/Potassium Phosphate 20 meq/ Amino Acids/ Dextrose/Purified Water 1,038.0938 ml @ 43 mls/hr Q24H9M IV 08/26/25 22:00 08/27/25 21:59 Cancel Enteral Nutritional Formula 1,000 ml 30ML/HR GT 08/26/25 15:00 09/08/25 19:27 1,000 ML Lactulose 30 ml DAILY PO 08/28/25 10:00 09/10/25 09:41 30 ML Albuterol 2.5 mg Q4HP PRN NEB 09/04/25 09:45 09/10/25 05:53 2.5 MG Spironolactone 50 mg DAILY PO 09/07/25 10:00 09/10/25 09:43 50 MG Folic Acid 1 mg/ Dextrose 50.2 ml @ 200.8 mls/ hr DAILY INJ 09/08/25 10:00 09/10/25 09:42 200.8 MLS/HR Ipratropium [place] 0.5 mg Q4HPRN PRN NEB 09/08/25 01:45 09/08/25 18:58 0.5 MG Amiodarone HCl 250 ml @ 33.33 mls/ hr Q7H31M IV 09/08/25 03:30 09/10/25 08:07 33.33 MLS/HR Examination General: A&O x3; Opens eyes spontaneously. HEENT: Pupils B/L equal and reactive to light. Normocephalic, atraumatic. Whispering. Respiratory/pulmonary: Crackles in bilateral breath sounds. Cardiovascular: Irregular heart rate Abdomen: Soft abdomen on palpation, normal bowel sounds Extremities: Warm bilateral extremities. B/L upper arm ecchymosis. Trace pitting edema in B/L upper and lower extremities. Skin: Small partial thickness linear skin tears (healing with scabs) approximately 0.5X1 cm in abdominal folds, left arm and left lower leg, healing with scabs. Neurological: Patient is A&O x3, following commands. Motor strength 3/5 laboratory and microbiology Laboratory Tests 09/10/25 04:24 Test 09/10/25 04:24 Range/Units Serum Glucose 103 74-106 mg/dL Microbiology Date/Time Source Procedure Growth Status 08/23/25 16:30 Urine - Abreu Port Urine Culture - Final Complete 08/18/25 10:55 Nose MRSA Screen - Final Complete Problem List/Assessment/Plan Problem List/Assessment/Plan Neurology # Sedation, Analgesia Propofol 10 mcg/kg/hr Fentanyl 150 mcg/hr # Acute metabolic encephalopathy likely due to hyperammonemia Ammonia levels have normalized. Cardiovascular # Acute on chronic HFpEF heart failure Likely precipitated by fluid overload and sepsis Echocardiogram: LVEF 50%. mild mitral regurgitation. mild tricuspid regurgitation. mild to moderate pulmonic regurgitation Bumex drip, Furosemide 20 mg IV discontinued Jardiance, Furosemide, and carvedilol held at this time CXR on 09/01/2025 show increased right hemithorax pleural opacification. Reduce Furosemide 40 mg IV from b.i.d. dosing to once daily. Holding off IV Lasix Cardiology on board. Per cardiology, IV amiodarone, diuretics with Lasix, GI prophylaxis. # Chronic Atrial Fibrillation Amiodarone - held due to bradycardia # Severe Pulmonary Hypertension Sildenafil held Ambrisentan 5 mg held # Bradycardia Midodrine 10 mg TID Discontinued Dopamine 2 mcg d/t tachycardia # Septic shock (POA Unable to determine) Holding Levophed Respiratory # Ventilator Intubated (08/19/2025) Extubated on 09/07/2025 # Acute hypoxic respiratory failure # Acute hypercapnic respiratory failure # Sleep apnea, possible # Obesity hyperventilation syndrome, possible S/p extubation Blood gas show normalization of pH, pCO2, pO2 On 2 L oxygen with nasal cannula during daytime. ABG and CXR ordered. Continue on nightly BiPAP. Patient on CPAP at home # Pulmonary Edema with bilateral pleural effusions Chest xray: Stable appearing pulmonary edema and small bilateral pleural effusions. # Pneumonia, ruled out Azithromycin discontinued Gastrointestinal # Acute hypovolemic shock likely due to Lower GI Bleed # Segmental ischemic colitis or diverticular disease, possible 8 PRBC transfusions, 4 FFPs, 5 Platelet transfusions Stool occult positive, discontinued Sandostatin Protonix 40 mg IV BID Vasopressin (holding off for now) Quadlevo discontinued Dopamine switched to Levophed d/t Tachycardia; NS 250 cc bolus given H&H stable; continue monitoring Completed Bedside colonoscopy today. As per GI specialist, patient has diverticulosis, likely the source GI bleed. No active bleed seen. # Liver cirrhosis likely due to fatty liver disease # Acute metabolic encephalopathy likely due to hyperammonemia # Hypoalbuminemia MELD score 26 Continue lactulose Monitor ammonia Albumin supplemented Continue IV Lasix 20 mg PRN Continue spironolactone # Cholelithaisis Abdominal US: The gallbladder wall measures 0.3 cm and is normal in size. Gallstones are noted. # 2 cm sliding type hiatal hernia # Mild gastritis EGD 08/26/2025: 1-2 cm sliding-type hiatal hernia with no significant erosive esophagitis, mild gastritis involving the antrum and body of the stomach with some linear gastric erosions GI recommended Protonix 40 mg b.i.d. IV, discontinue IV Sandostatin drip, continue to monitor labs and transfuse if hemoglobin drops below 7, elective colonoscopy once medically stabilized Continue IV iron therapy CT scan of the abdomen pelvis shows liver cirrhosis, splenomegaly. Pulmonary hypertension, B/L LL opacities. Enlargement of the uterus with a lobulated contour and scattered calcifications, possibly referable to fibroids. Genitourinary # Abreu catheter present draining clear urine # Complicated UTI Urine culture: E coli ESBL Discontinued Meropenem UA shows signs of improved infection UC: No growth after 48 hours Urine analysis from 09/06/25 negative for UTI Nephrology # RUDDY on CKD likely due to hemodynamically mediated (d/t VMN) Per nephrology, renal function is improving, dialysis is being held at this time. Jose M catheter remain in its place due to thrombocytopenia until patient is more stabilized. # Hyperkalemia, resolved # Hypernatremia Monitor BMP D5 given Infectious disease # Sepsis d/t below (POA Unable to determine) # Possible Septic Shock due to below (POA Unable to determine) # Complicated ESBL UTI D/c'd Meropenem 1 g IV BID Urine Culture: E. Coli ESBL Follow up UA shows improvement; Follow up UC shows no growth at 48 hours Vasopressin (holding off for now) Quadlevo discontinued Hem/onc # Acute hypovolemic shock likely due to Lower GI Bleed Managed w/ 8 PRBC transfusions, 4 FFPs, 5 Platelet transfusions D/c Sandostatin drip Protonix 40 mg IV BID Dopamine switched to Levophed d/t Tachycardia (08/29/25); Levophed discontinued in context of SBP> 90 # Pancytopenia Possibly associated to liver cirrhosis We will closely monitor WBC count. Endocrinology # Morbid Obesity BMI 57.4 DVT prophylaxis: SCDs Peptic ulcer prophylaxis: Pantoprazole 40 mg IV BID Nutrition: Passed bedside swallow eval, trial of p.o nutrition with close supervision. Aspiration precautions ordered Lines -R PICC line 08/19 -Abreu catheter 08/19 -ET tube: 08/19 -Jose M catheter 08/19 Drips during [facility] ventilation: Propofol 10 mcg/kg/min Fentanyl 150 mcg/hr Vasopressin held Quadlevo discontinued Sandostatin discontinued Dopamine discontinued Levophed started (08/29/25) held Patient on vasopressin (holding off for now), Levophed discontinued in context of SBP> 90. Dopamine discontinued d/t elevated heart rate. Patient is in critical condition, all findings and care plan discussed with her son at bedside. Questions and concerns were thoroughly addressed, prognosis is poor. Critical care time 45 minutes excluding procedure. Code status discussed greater than 20 minutes: Full CODE STATUS. Family at bedside explained about the condition of the patient. Goals of care discussed with son on bedside. Plan discussed with Dr. Puga Plan discussed with: Daughter, Son, Other (Nurses) CC Plasma Assessment Blood Product Administration S: 12:45 Visit Coding STANDARD RES Billing Provider: SILVIA PUGA MD Date of Service if different f: Sep 10, 2025 Common Visit Codes: 01596-[id number] INP/OBS CARE(HIGH) Secondary Visit Codes: 97051-[id number] CARE PLAN 30 MINUTES KLAUDIA LOWE RESIDENT Sep 10, 2025 15:52
--- NOTE | 2025-09-10 17:47 | DVHPN2 ---
Progress Note - Dictate Date Seen: Sep 10, 2025 Has the PT tested + for MRSA If YES, has PT been informed?: No Medical Necessity Reason Pt with a Central, PICC or Fol: Yes The following are medically ne: PICC Line, Abreu Catheter Subjective Patient was seen and evaluated in follow up. Patient is on 2 LPM NC. Patient appears sleepy and tired. Patient remains on Amiodarone drip. WBC 2.9, HGB 9.1, HCT 27.5, NA 147.Patient tolerating pureed with with thin liquid. Telemetry reviewed. vital signs Vital Sign Date Time Temp Pulse Resp B/P (MAP) Pulse Ox O2 Delivery O2 Flow Rate FiO2 09/10/25 17:00 97.6 101 17 128/80 (96) 96 97.6 09/10/25 08:00 Nasal Cannula* 2 28 Total Intake and Output 09/09/25 09/09/25 09/10/25 15:00 23:00 07:00 Intake Total 150.2 ml 399.96 ml 516 ml Output Total 350 ml 350 ml Balance 150.2 ml 49.96 ml 166 ml medications Current Medications Medications Dose Ordered Sig/Erum Route Start Time Stop Time Status Last Admin Dose Admin Acetaminophen 650 mg Q6HP PRN PO 08/15/25 22:15 Sodium Chloride 10 ml QSHIFT@10,22 IV 08/19/25 22:00 09/10/25 09:41 10 ML Pantoprazole Sodium 40 mg BID IV 08/22/25 10:00 09/10/25 09:41 40 MG Albumin Human 100 ml @ 100 mls/hr PRN PRN IV 08/22/25 17:00 Sodium Chloride 10 meq/Potassium Chloride 10 meq/ Calcium Gluconate 6.3 meq/Magnesium Sulfate 10 meq/ Multivitamins 10 ml/Potassium Phosphate 20 meq/ Amino Acids/ Dextrose/Purified Water 1,038.0938 ml @ 43 mls/hr Q24H9M IV 08/26/25 22:00 08/27/25 21:59 Cancel Enteral Nutritional Formula 1,000 ml 30ML/HR GT 08/26/25 15:00 09/08/25 19:27 1,000 ML Lactulose 30 ml DAILY PO 08/28/25 10:00 09/10/25 09:41 30 ML Albuterol 2.5 mg Q4HP PRN NEB 09/04/25 09:45 09/10/25 05:53 2.5 MG Spironolactone 50 mg DAILY PO 09/07/25 10:00 09/10/25 09:43 50 MG Folic Acid 1 mg/ Dextrose 50.2 ml @ 200.8 mls/ hr DAILY INJ 09/08/25 10:00 09/10/25 09:42 200.8 MLS/HR Ipratropium [place] 0.5 mg Q4HPRN PRN NEB 09/08/25 01:45 09/08/25 18:58 0.5 MG Amiodarone HCl 250 ml @ 33.33 mls/ hr Q7H31M IV 09/08/25 03:30 09/10/25 15:38 33.33 MLS/HR objective GENERAL: Alert and oriented x 3. Ill appearing, morbidly obese. EYES: PERRL, EOMI. Anicteric. HENT: Moist mucous membranes. LUNGS: Decreased breath sounds. CARDIOVASCULAR: Irregular rate and rhythm. ABDOMEN: Soft, non-tender and non-distended. EXTREMITIES: No edema. NEUROLOGIC: No focal neurological deficits. SKIN: Warm, dry. laboratory and microbiology Laboratory Tests 09/10/25 04:24 Test 09/10/25 04:24 Range/Units Serum Glucose 103 74-106 mg/dL Problem List Acute metabolic encephalopathy. Acute on chronic HFpEF heart failure. Atrial Fibrillation with RVR. Severe Pulmonary Hypertension. Bradycardia. Septic shock. Acute hypoxic and hypercapnic respiratory failure. Sleep apnea. Acute hypovolemic shock. Liver cirrhosis likely due to fatty liver disease. Hypoalbuminemia. Complicated UTI . RUDDY on CKD. Hypernatremia. Pancytopenia. Morbid Obesity. Assessment/Plan Continued all current supportive medical care. IV Amiodarone. GI prophylactics. Nebulized breathing treatments. Additional plan as per the hospital course. Plan discussed with: Patient CC Plasma Assessment Blood Product Administration S: 12:45 KATELYN ARTHUR MD Sep 10, 2025 17:47
--- NOTE | 2025-09-10 20:54 | DVHPN2 ---
Progress Note - Dictate Date Seen: Sep 10, 2025 Has the PT tested + for MRSA If YES, has PT been informed?: No Medical Necessity Reason Pt with a Central, PICC or Fol: Yes The following are medically ne: PICC Line, Abreu Catheter Subjective Patient extubated and downgraded to the floor on nasal cannula No active GI bleeding, normal brown stool, hemoglobin stable at 8.7 Patient has mild neutropenia improving EGD was negative, small hiatal hernia mild gastritis no bleeding Colonoscopy showed diverticulosis Patient was sleepy and tired. Currently on 2 L room air. A&O x3, no new complaints. PT on board. vital signs Vital Sign Date Time Temp Pulse Resp B/P (MAP) Pulse Ox O2 Delivery O2 Flow Rate FiO2 09/10/25 18:00 101 09/10/25 17:00 97.6 17 128/80 (96) 96 97.6 09/10/25 08:00 Nasal Cannula* 2 28 Total Intake and Output 09/09/25 09/09/25 09/10/25 15:00 23:00 07:00 Intake Total 150.2 ml 399.96 ml 516 ml Output Total 350 ml 350 ml Balance 150.2 ml 49.96 ml 166 ml medications Current Medications Medications Dose Ordered Sig/Erum Route Start Time Stop Time Status Last Admin Dose Admin Acetaminophen 650 mg Q6HP PRN PO 08/15/25 22:15 Sodium Chloride 10 ml QSHIFT@10,22 IV 08/19/25 22:00 09/10/25 09:41 10 ML Pantoprazole Sodium 40 mg BID IV 08/22/25 10:00 09/10/25 09:41 40 MG Albumin Human 100 ml @ 100 mls/hr PRN PRN IV 08/22/25 17:00 Sodium Chloride 10 meq/Potassium Chloride 10 meq/ Calcium Gluconate 6.3 meq/Magnesium Sulfate 10 meq/ Multivitamins 10 ml/Potassium Phosphate 20 meq/ Amino Acids/ Dextrose/Purified Water 1,038.0938 ml @ 43 mls/hr Q24H9M IV 08/26/25 22:00 08/27/25 21:59 Cancel Enteral Nutritional Formula 1,000 ml 30ML/HR GT 08/26/25 15:00 09/08/25 19:27 1,000 ML Lactulose 30 ml DAILY PO 08/28/25 10:00 09/10/25 09:41 30 ML Albuterol 2.5 mg Q4HP PRN NEB 09/04/25 09:45 09/10/25 05:53 2.5 MG Spironolactone 50 mg DAILY PO 09/07/25 10:00 09/10/25 09:43 50 MG Folic Acid 1 mg/ Dextrose 50.2 ml @ 200.8 mls/ hr DAILY INJ 09/08/25 10:00 09/10/25 09:42 200.8 MLS/HR Ipratropium [place] 0.5 mg Q4HPRN PRN NEB 09/08/25 01:45 09/08/25 18:58 0.5 MG Amiodarone HCl 250 ml @ 33.33 mls/ hr Q7H31M IV 09/08/25 03:30 09/10/25 15:38 33.33 MLS/HR objective General: Obese, afebrile, palor, mucosae are moist Cardiovascular: Regular S1 and S2. No murmurs, gallops or rubs. No JVD elevation. Bilateral pedal edema. Respiratory: Decreased breath sounds heard on auscultation, extubated on 2 L nasal cannula Abdomen: Soft, nontender, nondistended, hypoactive bowel sounds, no rebound tenderness, no organomegaly, no masses Genitourinary: Abreu catheter seen Neurological: Pupils are isocoric and reactive. laboratory and microbiology Laboratory Tests 09/10/25 04:24 Test 09/10/25 04:24 Range/Units Serum Glucose 103 74-106 mg/dL Problems(with codes): (1) Neutropenia (2) CHF exacerbation (3) Rectal bleeding (4) Hypoxemia (5) Thrombocytopenia Prognosis Plan Patient passed swallow evaluation She is on a pureed diet with thickened liquids Discontinue NG tube and tube feedings Patient is off amiodarone Continue physical therapy Plan discussed with: Patient CC Plasma Assessment Blood Product Administration S: 12:45 STEPHANIE CLAYTON MD Sep 10, 2025 20:53
--- NOTE | 2025-09-10 23:30 | DVHPN2 ---
Subjective DOS: 09/10/2025 Patient seen and examined at bedside. Currently on supplemental oxygen Overnight events reviewed Reviewed: H&P Changes from previous H/P or p: No Changes Objective Vitals Vital Signs Date Time Temp Pulse Resp B/P (MAP) Pulse Ox O2 Delivery O2 Flow Rate FiO2 09/10/25 21:45 100 97 Nasal BiPAP Mask 30 09/10/25 17:00 97.6 17 128/80 (96) 97.6 09/10/25 08:00 2 Intake/Output Intake and Output 09/10/25 07:00 Intake Total 1066.16 ml Output Total 700 ml Balance 366.16 ml Intake Oral 300 ml IV Total 666.16 ml Tube Feeding 100 ml Output Urine Total 700 ml # Voids 3 # Bowel Movements 4 Exam Gen.: Patient lying in bed in no apparent distress. On supplemental oxygen Head: Normocephalic, atraumatic. Eyes: EOMI/PERRLA. Ears: Normal hearing. Normal anatomy. Neck/trachea: Trachea midline, supple. Nose: Normal external anatomy. Mouth: Moist mucous membranes. Chest: Decreased air entry bilaterally. No wheezing or rhonchi. Cardiovascular: Positive S1, positive S2. Regular rate and rhythm. Abdomen: Positive bowel sounds in all 4 quadrants. Soft, non-tender, non- distended. : Deferred. Rectal: Deferred. Skin: Warm, dry. Intact. Extremities: 2+ radial pulses bilaterally. No lower extremity edema. Neuro: Awake, alert, oriented x3. No gross motor or sensory deficits. Cranial nerves II through XII intact. Gait not assessed. General Appearance: Other (intubated and sedated) HEENT: Atraumatic Cardiovascular: Regular rate, Normal S1, Normal S2 Abdomen: Normal bowel sounds Medications Current Medications Medications Dose Ordered Sig/Erum Route Start Time Stop Time Status Last Admin Dose Admin Acetaminophen 650 mg Q6HP PRN PO 08/15/25 22:15 Sodium Chloride 10 ml QSHIFT@10,22 IV 08/19/25 22:00 09/10/25 21:52 10 ML Pantoprazole Sodium 40 mg BID IV 08/22/25 10:00 09/10/25 21:52 40 MG Albumin Human 100 ml @ 100 mls/hr PRN PRN IV 08/22/25 17:00 Sodium Chloride 10 meq/Potassium Chloride 10 meq/ Calcium Gluconate 6.3 meq/Magnesium Sulfate 10 meq/ Multivitamins 10 ml/Potassium Phosphate 20 meq/ Amino Acids/ Dextrose/Purified Water 1,038.0938 ml @ 43 mls/hr Q24H9M IV 08/26/25 22:00 08/27/25 21:59 Cancel Enteral Nutritional Formula 1,000 ml 30ML/HR GT 08/26/25 15:00 09/08/25 19:27 1,000 ML Lactulose 30 ml DAILY PO 08/28/25 10:00 09/10/25 09:41 30 ML Albuterol 2.5 mg Q4HP PRN NEB 09/04/25 09:45 09/10/25 05:53 2.5 MG Spironolactone 50 mg DAILY PO 09/07/25 10:00 09/10/25 09:43 50 MG Folic Acid 1 mg/ Dextrose 50.2 ml @ 200.8 mls/ hr DAILY INJ 09/08/25 10:00 09/10/25 09:42 200.8 MLS/HR Ipratropium [place] 0.5 mg Q4HPRN PRN NEB 09/08/25 01:45 09/08/25 18:58 0.5 MG Amiodarone HCl 250 ml @ 33.33 mls/ hr Q7H31M IV 09/08/25 03:30 09/10/25 15:38 33.33 MLS/HR Laboratory Results Laboratory Tests 09/10/25 04:24 Chemistry Test 09/10/25 04:24 Albumin 3.7 g/dL (3.2-4.8) Calcium Level 9.0 mg/dL (8.7-10.4) Total Protein 7.3 g/dL (5.7-8.2) LFT Test 09/10/25 04:24 Alanine Aminotransferase (ALT) < 9 U/L (7-40) Alkaline Phosphatase 85 U/L (46-116) Aspartate Amino Transferase (AST) 29 U/L (13-40) Total Bilirubin 1.6 mg/dL (0.2-1.0) H Urinalysis Test 08/16/25 04:10 08/24/25 15:20 09/06/25 04:00 Urine WBC Clumps Present /hpf (None Seen) Urine Creatinine 50.59 mg/dL (30.0-125.0) Urine Protein/Creatinine Ratio 0.61 Urine Sodium 46 mmol/L (40-220) Urine Total Protein 30.8 mg/dL (1-14) H Urine Hyaline Casts Few /lpf (0 - 2) Urine Mucus Few (None Seen) Urine Color Yellow (Yellow) Urine Clarity Clear (Clear) Urine pH 7.5 (5.0-9.0) Urine Specific [place] 1.016 (1.001-1.035) Urine Protein 1+ (Negative) H Urine Ketones Trace (Negative) Urine Blood Negative /uL (Negative) Urine Nitrite Negative (Negative) Urine Bilirubin Negative (Negative) Urine Urobilinogen 4 mg/dL (Negative) H Urine Leukocyte Esterase Negative /uL (Negative) Urine RBC 2 /hpf (0 - 4) Urine Microscopic WBC 5 /HPF (0-5) Urine Squamous Epithelial Cells Mod /hpf (<5) Urine Bacteria None seen /hpf (None Seen) Urine Glucose Normal mg/dL (Normal) Microbiology Microbiology Date/Time Source Procedure Growth Status 08/23/25 16:30 Urine - Abreu Port Urine Culture - Final Complete 08/18/25 10:55 Nose MRSA Screen - Final Complete Assessment/Plan Assessment/Plan Impression: Acute on chronic hypoxic respiratory failure Pulmonary hypertension Congestive heart failure Morbid obesity Acute on chronic renal failure Pancytopenia Events: Patient is currently on supplemental O2 On 2 LPM NC Taper O2 as tolerated BiPAP at night from 10 PM to 6 AM for ROMAINE; supplemental O2 when awake. Patient with productive cough. CTAB on exam Patient passed swallow eval. HOB elevation Aspiration precautions Diet is puree diet - feed with assistance. Recommend PT, SNF Placement Labs reviewed; WBC 2.9, HGB 9.1, HCT 27.5, NA 147. Chest x-ray shows increased interstitial prominence ABG reviewed, compensated Remains on amiodarone drip Cardiology recs appreciated Continue bronchodilators. Completed antibiotics Monitor WBC. Hypernatremia - sodium of 147 IV fluids with D5W for 12 hours Monitor blood pressure -midodrine for BP support Remains off pressors, monitor hemodynamics No further bloody bowel movements. Monitor hemoglobin - currently stable. Protonix BID EGD reviewed, showed sliding-type hiatal hernia. S/p colonoscopy - showed diverticulosis and hemorrhoids. GI recs appreciated. Hemodialysis per Nephrology Nephrology recs appreciated Diurese with Lasix PRN Monitor renal function. Monitor electrolytes. Supplement as necessary. Monitor ins and outs. Tube feeds for nutritional support Labs and imaging reviewed. Plan: Supplemental oxygen Titrate to keep O2 sats above 92%. BiPAP at nighttime Pressors as necessary for hemodynamic support Titrate to keep mean arterial pressure greater than 65 mmHg Continue bronchodilators. Continue antibiotics Amiodarone for AFib Follow up Cardiology recs Follow up Nephrology recs HD per Nephrology Diurese to euvolemia Monitor renal function. Monitor electrolytes. Supplement as necessary. Hyperkalemia resolved Monitor ins and outs. DVT prophylaxis. Prognosis: Poor given patient's multiple co-morbidities. Rest of plan per hospitalist and other consultants. Thank you, Dr. Longo, for allowing me to participate in this patient's care. Further recommendations will depend on the patient's clinical course. Please do not hesitate to contact me if you have any questions or concerns. This medical document was created using an electronic medical record system with [employer] dictation system. Although these documentations are being carefully reviewed, there may still be some phonetic and typographical changes. The errors are purely typographical, due to imperfection on the software program, and do not reflect any compromise in the patient's medical care. Plan discussed with: Patient, Other (RN) Visit Coding Pulmonary Billing Provider: SILVIA RIVAS MD Date of Service if different f: Sep 10, 2025 Common Visit Codes: 76598-[id number] INP/OBS CARE(HIGH) SILVIA RIVAS MD Sep 10, 2025 23:30
[2025-09-11] VITALS (15 sets, daily range): BP systolic 125–142; BP diastolic 51–76; PULSE 80–106; RESP 16–24; TEMP 97.6–98.8; O2SAT 94–100
[2025-09-11 07:26] LABS: Hematocrit 26.0 % (36.0-46.0); Hemoglobin 8.5 g/dL (12.2-16.2); Mean Corpuscular Hemoglobin 29.6 pg (28.0-32.0); Mean Corpuscular Volume 90.9 fL (80.0-100.0); Nucleated Red Blood Cells % 0.1 %
[2025-09-11 07:34] LABS: Alkaline Phosphatase 78 U/L (46-116); Anion Gap 12 (5-15); BUN/Creatinine Ratio 9.5 (10.0-20.0); Blood Urea Nitrogen 9 mg/dL (9-23); Calcium 9.0 mg/dL (8.7-10.4); Carbon Dioxide 28 mmol/L (20-31); Glucose 105 mg/dL (74-106); Total Protein 6.9 g/dL (5.7-8.2)
[2025-09-11 07:35] LABS: Albumin 3.6 g/dL (3.2-4.8)
[2025-09-11 07:40] LABS: Alanine Aminotransferase < 9 U/L (7-40); Bilirubin, Total 1.4 mg/dL (0.2-1.0); Chloride 107 mmol/L (98-107); Potassium 3.5 mmol/L (3.5-5.1); Sodium 147 mmol/L (136-145)
--- NOTE | 2025-09-11 09:17 | DVHPNRES ---
Progress Note Date Seen: Sep 11, 2025 Resident Creating Document: LEILA ALBARRAN RESIDENT Has the PT tested + for MRSA If YES, has PT been informed?: No Medical Necessity Reason Pt with a Central, PICC or Fol: Yes The following are medically ne: PICC Line, Abreu Catheter Subjective Review of Systems Ms. Worthington is a 65 year old female with past medical history of HFpEF liver cirrhosis, chronic atrial fibrillation, anemia with multiple blood transfusions in the past, and pulmonary hypertension, who presented to [facility] via EMS due shortness of breath. As per her sons, the patient has had progressively worsening bilateral leg edema for the last month associated with worsening shortness of breath for two weeks. They state that she is compliant with her medications, however, every few months they have to take their mom to the hospital for similar symptoms, with most recent hospitalization in late May 2025. She was seen by her home health nurse on Friday (08/15/2025) night, who told the family to call EMS. As per records, on scene she was found to have a saturation of 90% on room air, she placed on 2 L NC with improvement to 92% and brought to the emergency department. On initial evaluation in the ER, she was afebrile, MAP within normal range, saturating adequately on 2L NC. She was found to have anasarca reaching up to her thighs. 12 lead EKG showed atrial fibrillation. Initial labs are significant for pancytopenia, hyperkalemia, BUN 84, creatinine 2.14, BNP 207, troponins negative, and lipase 178. UA is consistent with a UTI. Chest Xray significant for hazy opacities throughout the right lung, and stable cardiomediastinal enlargement. The patient was started on IV Lasix, hyperkalemia protocol, IV antibiotics, and of 1 PRBC and was admitted for further work up and management. The patient was evaluated by nephrology who initially recommended diuresis, albumin and low dose dopamine, and midodrine, however, due to progressively worsening kidney function, dialysis was recommended. On 08/18/2025 patient was found lethargic and disoriented, blood gas showed hypoxic and hypercapnic respiratory failure, she was started on BiPAP and transferred to the ICU. Mentation continued to deteriorate and required intubation for airway protection and respiratory insufficiency. Patient presented two large bloody bowel movements requiring emergent transfusion of 2 PRBCs and vasopressors. She was evaluated by gastroenterology who recommended use of PPI, octreotide, and transfusions as needed with endoscopy when stable. Prior medical history: HFrEF, Liver cirrhosis, Chronic Atrial Fibrillation, Anemia s/p multiple blood transfusions, and pulmonary hypertension Prior surgical history: 3 c-sections Social: Sons deny any previous drug, tobacco, or alcohol use. She recently moved to the area to live with her son, Dalia. 09/11/2025: Patient seen and examined at bedside, continues to have trace crackles in lower extremity pitting edema with moist mucous membranes. Progressing with physical therapy. Remains on 2 L O2 via NC, saturating 98%. Objective vital signs Vital Sign Date Time Temp Pulse Resp B/P (MAP) Pulse Ox O2 Delivery O2 Flow Rate FiO2 09/11/25 06:56 98 Nasal Cannula* 2 09/11/25 06:00 100 09/11/25 05:00 98.7 19 125/76 (92) 98.7 Total Intake and Output 09/10/25 09/10/25 09/11/25 15:00 23:00 07:00 Intake Total 50 ml 400 ml 482 ml Output Total 350 ml 350 ml Balance 50 ml 50 ml 132 ml medications Current Medications Medications Dose Ordered Sig/Erum Route Start Time Stop Time Status Last Admin Dose Admin Acetaminophen 650 mg Q6HP PRN PO 08/15/25 22:15 Sodium Chloride 10 ml QSHIFT@10,22 IV 08/19/25 22:00 09/11/25 09:05 10 ML Pantoprazole Sodium 40 mg BID IV 08/22/25 10:00 09/11/25 09:05 40 MG Albumin Human 100 ml @ 100 mls/hr PRN PRN IV 08/22/25 17:00 Sodium Chloride 10 meq/Potassium Chloride 10 meq/ Calcium Gluconate 6.3 meq/Magnesium Sulfate 10 meq/ Multivitamins 10 ml/Potassium Phosphate 20 meq/ Amino Acids/ Dextrose/Purified Water 1,038.0938 ml @ 43 mls/hr Q24H9M IV 08/26/25 22:00 08/27/25 21:59 Cancel Enteral Nutritional Formula 1,000 ml 30ML/HR GT 08/26/25 15:00 09/08/25 19:27 1,000 ML Lactulose 30 ml DAILY PO 08/28/25 10:00 09/10/25 09:41 30 ML Albuterol 2.5 mg Q4HP PRN NEB 09/04/25 09:45 09/10/25 05:53 2.5 MG Spironolactone 50 mg DAILY PO 09/07/25 10:00 09/11/25 09:05 50 MG Folic Acid 1 mg/ Dextrose 50.2 ml @ 200.8 mls/ hr DAILY INJ 09/08/25 10:00 09/11/25 09:05 200.8 MLS/HR Ipratropium [place] 0.5 mg Q4HPRN PRN NEB 09/08/25 01:45 09/08/25 18:58 0.5 MG Amiodarone HCl 250 ml @ 33.33 mls/ hr Q7H31M IV 09/08/25 03:30 09/11/25 03:39 33.33 MLS/HR Examination General: A&O x3; Opens eyes spontaneously. HEENT: Pupils B/L equal and reactive to light. Normocephalic, atraumatic. Whispering. Respiratory/pulmonary: Crackles in bilateral breath sounds. Cardiovascular: Irregular heart rate Abdomen: Soft abdomen on palpation, normal bowel sounds Extremities: Warm bilateral extremities. B/L upper arm ecchymosis. Trace pitting edema in B/L upper and lower extremities. Skin: Small partial thickness linear skin tears (healing with scabs) approximately 0.5X1 cm in abdominal folds, left arm and left lower leg, healing with scabs. Neurological: Patient is A&O x3, following commands. Motor strength 3/5 laboratory and microbiology Laboratory Tests 09/11/25 04:40 Test 09/11/25 04:40 Range/Units Serum Glucose 105 74-106 mg/dL Microbiology Date/Time Source Procedure Growth Status 08/23/25 16:30 Urine - Abreu Port Urine Culture - Final Complete 08/18/25 10:55 Nose MRSA Screen - Final Complete Labs and/or images reviewed: Labs reviewed by me, Image(s) reviewed by me Problem List/Assessment/Plan Problem List/Assessment/Plan Neurology # Sedation, Analgesia, now discontinued # Acute metabolic encephalopathy likely due to hyperammonemia, now improved Ammonia levels have normalized. Cardiovascular # Acute on chronic HFpEF heart failure Likely precipitated by fluid overload and sepsis Echocardiogram: LVEF 50%. mild mitral regurgitation. mild tricuspid regurgitation. mild to moderate pulmonic regurgitation Bumex drip, Furosemide 20 mg IV discontinued Jardiance, Furosemide, and carvedilol held at this time CXR on 09/01/2025 show increased right hemithorax pleural opacification. Reduce Furosemide 40 mg IV from b.i.d. dosing to once daily. Holding off IV Lasix Cardiology on board. Per cardiology, IV amiodarone, diuretics with Lasix, GI prophylaxis. # Chronic Atrial Fibrillation Amiodarone, cardiology on board # Severe Pulmonary Hypertension Sildenafil held Ambrisentan 5 mg held # Bradycardia Midodrine 10 mg TID Discontinued Dopamine 2 mcg d/t tachycardia # Septic shock (POA Unable to determine) Holding Levophed Respiratory # Ventilator Intubated (08/19/2025) Extubated on 09/07/2025 # Acute hypoxic respiratory failure # Acute hypercapnic respiratory failure # Sleep apnea, possible # Obesity hyperventilation syndrome, possible S/p extubation Blood gas show normalization of pH, pCO2, pO2 On 2 L oxygen with nasal cannula during daytime. ABG and CXR ordered. Continue on nightly BiPAP. Patient on CPAP at home # Pulmonary Edema with bilateral pleural effusions Chest xray: Stable appearing pulmonary edema and small bilateral pleural effusions. # Pneumonia, ruled out Azithromycin discontinued Gastrointestinal # Acute hypovolemic shock likely due to Lower GI Bleed # Segmental ischemic colitis or diverticular disease, possible 8 PRBC transfusions, 4 FFPs, 5 Platelet transfusions Stool occult positive, discontinued Sandostatin Protonix 40 mg IV BID Vasopressin (holding off for now) Quadlevo discontinued Dopamine switched to Levophed d/t Tachycardia; NS 250 cc bolus given H&H stable; continue monitoring Completed Bedside colonoscopy today. As per GI specialist, patient has diverticulosis, likely the source GI bleed. No active bleed seen. # Liver cirrhosis likely due to fatty liver disease # Acute metabolic encephalopathy likely due to hyperammonemia # Hypoalbuminemia MELD score 26 Continue lactulose Monitor ammonia Albumin supplemented Continue IV Lasix 20 mg PRN Continue spironolactone # Cholelithaisis Abdominal US: The gallbladder wall measures 0.3 cm and is normal in size. Gallstones are noted. # 2 cm sliding type hiatal hernia # Mild gastritis EGD 08/26/2025: 1-2 cm sliding-type hiatal hernia with no significant erosive esophagitis, mild gastritis involving the antrum and body of the stomach with some linear gastric erosions GI recommended Protonix 40 mg b.i.d. IV, discontinue IV Sandostatin drip, continue to monitor labs and transfuse if hemoglobin drops below 7, elective colonoscopy once medically stabilized Continue IV iron therapy CT scan of the abdomen pelvis shows liver cirrhosis, splenomegaly. Pulmonary hypertension, B/L LL opacities. Enlargement of the uterus with a lobulated contour and scattered calcifications, possibly referable to fibroids. Genitourinary # Abreu catheter present draining clear urine # Complicated UTI Urine culture: E coli ESBL Discontinued Meropenem UA shows signs of improved infection UC: No growth after 48 hours Urine analysis from 09/06/25 negative for UTI Nephrology # RUDDY on CKD likely due to hemodynamically mediated (d/t VMN) Per nephrology, renal function is improving, dialysis is being held at this time. Jose M catheter remain in its place due to thrombocytopenia until patient is more stabilized. # Hyperkalemia, resolved # Hypernatremia Monitor BMP D5 given Infectious disease # Sepsis d/t below (POA Unable to determine) # Possible Septic Shock due to below (POA Unable to determine) # Complicated ESBL UTI D/c'd Meropenem 1 g IV BID Urine Culture: E. Coli ESBL Follow up UA shows improvement; Follow up UC shows no growth at 48 hours Vasopressin (holding off for now) Quadlevo discontinued Hem/onc # Acute hypovolemic shock likely due to Lower GI Bleed Managed w/ 8 PRBC transfusions, 4 FFPs, 5 Platelet transfusions D/c Sandostatin drip Protonix 40 mg IV BID Dopamine switched to Levophed d/t Tachycardia (08/29/25); Levophed discontinued in context of SBP> 90 # Pancytopenia Possibly associated to liver cirrhosis We will closely monitor WBC count. Endocrinology # Morbid Obesity BMI 57.4 DVT prophylaxis: SCDs Peptic ulcer prophylaxis: Pantoprazole 40 mg IV BID Nutrition: Passed bedside swallow eval, trial of p.o nutrition with close supervision. Aspiration precautions ordered Lines -R PICC line / -Abreu catheter / -ET tube: 08/19 -Jose M catheter 12/ Drips during mech ventilation: Propofol 10 mcg/kg/min Fentanyl 150 mcg/hr Vasopressin held Quadlevo discontinued Sandostatin discontinued Dopamine discontinued Levophed started (08/29/25) held Patient on vasopressin (holding off for now), Levophed discontinued in context of SBP> 90. Dopamine discontinued d/t elevated heart rate. Critical care time 45 minutes excluding procedure. Code status discussed greater than 20 minutes: Full CODE STATUS. Family at bedside explained about the condition of the patient. Goals of care discussed with son on bedside. Plan discussed with Dr. Puga Plan discussed with: Patient, Son, Other (RN) My Orders My Orders Orders - LEILA ALBARRAN Procedure Category Date Status Time Complete Blood Count LAB 09/12/25 Verified 04:00 Comprehensive LAB 09/12/25 Verified Metabolic Panel 04:00 CC Plasma Assessment Blood Product Administration S: 12:45 Visit Coding STANDARD RES Billing Provider: SILVIA PUGA MD Date of Service if different f: Sep 11, 2025 Common Visit Codes: 43930-[id number] CARE 30-74 MIN, [id number] CARE-EACH +30MIN LEILA ALBARRAN Sep 11, 2025 09:17
--- NOTE | 2025-09-11 16:06 | DVHPN2 ---
Progress Note - Dictate Date Seen: Sep 11, 2025 Has the PT tested + for MRSA If YES, has PT been informed?: No Medical Necessity Reason Pt with a Central, PICC or Fol: Yes The following are medically ne: PICC Line, Abreu Catheter Subjective Patient passed swallow evaluation Patient has been started on a pureed diet and taking her medications Patient still has an NG-tube No active GI bleeding, normal brown stool, hemoglobin stable at 8.7 EGD was negative, small hiatal hernia mild gastritis no bleeding Colonoscopy showed diverticulosis Patient was sleepy and tired. Currently on 2 L room air. A&O x3, no new complaints. PT on board. vital signs Vital Sign Date Time Temp Pulse Resp B/P (MAP) Pulse Ox O2 Delivery O2 Flow Rate FiO2 09/11/25 13:00 98.8 89 20 129/53 (78) 95 98.8 09/11/25 08:00 Nasal Cannula* 2 28 Total Intake and Output 09/10/25 09/10/25 09/11/25 15:00 23:00 07:00 Intake Total 50 ml 400 ml 615.33 ml Output Total 350 ml 600 ml Balance 50 ml 50 ml 15.33 ml medications Current Medications Medications Dose Ordered Sig/Erum Route Start Time Stop Time Status Last Admin Dose Admin Acetaminophen 650 mg Q6HP PRN PO 08/15/25 22:15 Sodium Chloride 10 ml QSHIFT@10,22 IV 08/19/25 22:00 09/11/25 09:05 10 ML Pantoprazole Sodium 40 mg BID IV 08/22/25 10:00 09/11/25 09:05 40 MG Albumin Human 100 ml @ 100 mls/hr PRN PRN IV 08/22/25 17:00 Sodium Chloride 10 meq/Potassium Chloride 10 meq/ Calcium Gluconate 6.3 meq/Magnesium Sulfate 10 meq/ Multivitamins 10 ml/Potassium Phosphate 20 meq/ Amino Acids/ Dextrose/Purified Water 1,038.0938 ml @ 43 mls/hr Q24H9M IV 08/26/25 22:00 08/27/25 21:59 Cancel Enteral Nutritional Formula 1,000 ml 30ML/HR GT 08/26/25 15:00 09/08/25 19:27 1,000 ML Lactulose 30 ml DAILY PO 08/28/25 10:00 09/10/25 09:41 30 ML Albuterol 2.5 mg Q4HP PRN NEB 09/04/25 09:45 09/10/25 05:53 2.5 MG Spironolactone 50 mg DAILY PO 09/07/25 10:00 09/11/25 09:05 50 MG Folic Acid 1 mg/ Dextrose 50.2 ml @ 200.8 mls/ hr DAILY INJ 09/08/25 10:00 09/11/25 09:05 200.8 MLS/HR Ipratropium [place] 0.5 mg Q4HPRN PRN NEB 09/08/25 01:45 09/08/25 18:58 0.5 MG Amiodarone HCl 250 ml @ 33.33 mls/ hr Q7H31M IV 09/08/25 03:30 09/11/25 11:49 33.33 MLS/HR objective General: Obese, afebrile, palor, mucosae are moist Cardiovascular: Regular S1 and S2. No murmurs, gallops or rubs. No JVD elevation. Bilateral pedal edema. Respiratory: Decreased breath sounds heard on auscultation, extubated on 2 L nasal cannula Abdomen: Soft, nontender, nondistended, hypoactive bowel sounds, no rebound tenderness, no organomegaly, no masses Genitourinary: Abreu catheter seen Neurological: Pupils are isocoric and reactive. laboratory and microbiology Laboratory Tests 09/11/25 04:40 Test 09/11/25 04:40 Range/Units Serum Glucose 105 74-106 mg/dL Problems(with codes): (1) Neutropenia (2) Rectal bleeding (3) Thrombocytopenia (4) Hypoxemia (5) Anemia (6) Acute hyperkalemia Prognosis Plan Continue supportive care Advance diet as tolerated Discontinue NG tube Continue PT Plan discussed with: Other (Nurse) CC Plasma Assessment Blood Product Administration S: 12:45 STEPHANIE CLAYTON MD Sep 11, 2025 16:06
[2025-09-11] MEDS: POTASSIUM EFFERVESENT TAB 25 MEQ PO ONE (18:00)
[2025-09-11] MEDS: FUROSEMIDE 20 MG/2 ML VIAL IV ONE (18:43)
--- NOTE | 2025-09-11 19:57 | DVHPN2 ---
Progress Note - Dictate Date Seen: Sep 11, 2025 Has the PT tested + for MRSA If YES, has PT been informed?: No Medical Necessity Reason Pt with a Central, PICC or Fol: Yes The following are medically ne: PICC Line, Abreu Catheter Subjective Patient was seen and evaluated in follow up. Patient is on 2 LPM NC. Patient's NGT was removed. WBC 2.7, HGB 8.5, HCT 26, NA 147. Telemetry reviewed. vital signs Vital Sign Date Time Temp Pulse Resp B/P (MAP) Pulse Ox O2 Delivery O2 Flow Rate FiO2 09/11/25 13:00 98.8 89 20 129/53 (78) 95 98.8 09/11/25 08:00 Nasal Cannula* 2 28 Total Intake and Output 09/10/25 09/10/25 09/11/25 15:00 23:00 07:00 Intake Total 50 ml 400 ml 582 ml Output Total 350 ml 600 ml Balance 50 ml 50 ml -18 ml medications Current Medications Medications Dose Ordered Sig/Erum Route Start Time Stop Time Status Last Admin Dose Admin Acetaminophen 650 mg Q6HP PRN PO 08/15/25 22:15 Sodium Chloride 10 ml QSHIFT@10,22 IV 08/19/25 22:00 09/11/25 09:05 10 ML Pantoprazole Sodium 40 mg BID IV 08/22/25 10:00 09/11/25 09:05 40 MG Albumin Human 100 ml @ 100 mls/hr PRN PRN IV 08/22/25 17:00 Sodium Chloride 10 meq/Potassium Chloride 10 meq/ Calcium Gluconate 6.3 meq/Magnesium Sulfate 10 meq/ Multivitamins 10 ml/Potassium Phosphate 20 meq/ Amino Acids/ Dextrose/Purified Water 1,038.0938 ml @ 43 mls/hr Q24H9M IV 08/26/25 22:00 08/27/25 21:59 Cancel Enteral Nutritional Formula 1,000 ml 30ML/HR GT 08/26/25 15:00 09/08/25 19:27 1,000 ML Lactulose 30 ml DAILY PO 08/28/25 10:00 09/10/25 09:41 30 ML Albuterol 2.5 mg Q4HP PRN NEB 09/04/25 09:45 09/10/25 05:53 2.5 MG Spironolactone 50 mg DAILY PO 09/07/25 10:00 09/11/25 09:05 50 MG Folic Acid 1 mg/ Dextrose 50.2 ml @ 200.8 mls/ hr DAILY INJ 09/08/25 10:00 09/11/25 09:05 200.8 MLS/HR Ipratropium [place] 0.5 mg Q4HPRN PRN NEB 09/08/25 01:45 09/08/25 18:58 0.5 MG Amiodarone HCl 250 ml @ 33.33 mls/ hr Q7H31M IV 09/08/25 03:30 09/11/25 11:49 33.33 MLS/HR objective GENERAL: Alert and oriented x 3. Ill appearing, morbidly obese. EYES: PERRL, EOMI. Anicteric. HENT: Moist mucous membranes. LUNGS: Decreased breath sounds. CARDIOVASCULAR: Irregular rate and rhythm. ABDOMEN: Soft, non-tender and non-distended. EXTREMITIES: No edema. NEUROLOGIC: No focal neurological deficits. SKIN: Warm, dry. laboratory and microbiology Laboratory Tests 09/11/25 04:40 Test 09/11/25 04:40 Range/Units Serum Glucose 105 74-106 mg/dL Problem List Acute metabolic encephalopathy. Acute on chronic HFpEF heart failure. Atrial Fibrillation with RVR. Severe Pulmonary Hypertension. Bradycardia. Septic shock. Acute hypoxic and hypercapnic respiratory failure. Sleep apnea. Acute hypovolemic shock. Liver cirrhosis likely due to fatty liver disease. Hypoalbuminemia. Complicated UTI . RUDDY on CKD. Hypernatremia. Pancytopenia. Morbid Obesity. Assessment/Plan Continued all current supportive medical care. IV Amiodarone. GI prophylactics. Additional plan as per the hospital course. Plan discussed with: Patient CC Plasma Assessment Blood Product Administration S: 12:45 KATELYN ARTHUR MD Sep 11, 2025 14:05
--- NOTE | 2025-09-11 23:22 | DVHPN2 ---
Subjective DOS: 09/11/2025 Patient seen and examined at bedside. Currently on supplemental oxygen Overnight events reviewed Reviewed: H&P Changes from previous H/P or p: No Changes Objective Vitals Vital Signs Date Time Temp Pulse Resp B/P (MAP) Pulse Ox O2 Delivery O2 Flow Rate FiO2 09/11/25 21:00 97.8 92 16 129/67 (87) 99 97.8 09/11/25 20:00 Nasal Cannula* 2 28 Intake/Output Intake and Output 09/11/25 07:00 Intake Total 1065.33 ml Output Total 950 ml Balance 115.33 ml Intake Oral 750 ml IV Total 315.33 ml Output Urine Total 950 ml # Bowel Movements 3 Exam Gen.: Patient lying in bed in no apparent distress. On supplemental oxygen Head: Normocephalic, atraumatic. Eyes: EOMI/PERRLA. Ears: Normal hearing. Normal anatomy. Neck/trachea: Trachea midline, supple. Nose: Normal external anatomy. Mouth: Moist mucous membranes. Chest: Decreased air entry bilaterally. No wheezing or rhonchi. Cardiovascular: Positive S1, positive S2. Regular rate and rhythm. Abdomen: Positive bowel sounds in all 4 quadrants. Soft, non-tender, non- distended. : Deferred. Rectal: Deferred. Skin: Warm, dry. Intact. Extremities: 2+ radial pulses bilaterally. No lower extremity edema. Neuro: Awake, alert, oriented x3. No gross motor or sensory deficits. Cranial nerves II through XII intact. Gait not assessed. General Appearance: Other HEENT: Atraumatic Cardiovascular: Regular rate, Normal S1, Normal S2 Abdomen: Normal bowel sounds Medications Current Medications Medications Dose Ordered Sig/[facility] Route Start Time Stop Time Status Last Admin Dose Admin Acetaminophen 650 mg Q6HP PRN PO 08/15/25 22:15 Sodium Chloride 10 ml QSHIFT@10,22 IV 08/19/25 22:00 09/11/25 22:03 10 ML Pantoprazole Sodium 40 mg BID IV 08/22/25 10:00 09/11/25 22:02 40 MG Albumin Human 100 ml @ 100 mls/hr PRN PRN IV 08/22/25 17:00 Sodium Chloride 10 meq/Potassium Chloride 10 meq/ Calcium Gluconate 6.3 meq/Magnesium Sulfate 10 meq/ Multivitamins 10 ml/Potassium Phosphate 20 meq/ Amino Acids/ Dextrose/Purified Water 1,529.0675 ml @ 43 mls/hr Q24H9M IV 08/26/25 22:00 08/27/25 21:59 Cancel Enteral Nutritional Formula 1,000 ml 30ML/HR GT 08/26/25 15:00 09/08/25 19:27 1,000 ML Lactulose 30 ml DAILY PO 08/28/25 10:00 09/10/25 09:41 30 ML Albuterol 2.5 mg Q4HP PRN NEB 09/04/25 09:45 09/10/25 05:53 2.5 MG Spironolactone 50 mg DAILY PO 09/07/25 10:00 09/11/25 09:05 50 MG Folic Acid 1 mg/ Dextrose 50.2 ml @ 200.8 mls/ hr DAILY INJ 09/08/25 10:00 09/11/25 09:05 200.8 MLS/HR Ipratropium [place] 0.5 mg Q4HPRN PRN NEB 09/08/25 01:45 09/08/25 18:58 0.5 MG Amiodarone HCl 250 ml @ 33.33 mls/ hr Q7H31M IV 09/08/25 03:30 09/11/25 22:03 33.33 MLS/HR Laboratory Results Laboratory Tests 09/11/25 04:40 Chemistry Test 09/11/25 04:40 Albumin 3.6 g/dL (3.2-4.8) Calcium Level 9.0 mg/dL (8.7-10.4) Total Protein 6.9 g/dL (5.7-8.2) LFT Test 09/11/25 04:40 Alanine Aminotransferase (ALT) < 9 U/L (7-40) Alkaline Phosphatase 78 U/L (46-116) Aspartate Amino Transferase (AST) 23 U/L (13-40) Total Bilirubin 1.4 mg/dL (0.2-1.0) H Urinalysis Test 08/16/25 04:10 08/24/25 15:20 09/06/25 04:00 Urine WBC Clumps Present /hpf (None Seen) Urine Creatinine 50.59 mg/dL (30.0-125.0) Urine Protein/Creatinine Ratio 0.61 Urine Sodium 46 mmol/L (40-220) Urine Total Protein 30.8 mg/dL (1-14) H Urine Hyaline Casts Few /lpf (0 - 2) Urine Mucus Few (None Seen) Urine Color Yellow (Yellow) Urine Clarity Clear (Clear) Urine pH 7.5 (5.0-9.0) Urine Specific [place] 1.016 (1.001-1.035) Urine Protein 1+ (Negative) H Urine Ketones Trace (Negative) Urine Blood Negative /uL (Negative) Urine Nitrite Negative (Negative) Urine Bilirubin Negative (Negative) Urine Urobilinogen 4 mg/dL (Negative) H Urine Leukocyte Esterase Negative /uL (Negative) Urine RBC 2 /hpf (0 - 4) Urine Microscopic WBC 5 /HPF (0-5) Urine Squamous Epithelial Cells Mod /hpf (<5) Urine Bacteria None seen /hpf (None Seen) Urine Glucose Normal mg/dL (Normal) Microbiology Microbiology Date/Time Source Procedure Growth Status 08/23/25 16:30 Urine - Abreu Port Urine Culture - Final Complete 08/18/25 10:55 Nose MRSA Screen - Final Complete Assessment/Plan Assessment/Plan Impression: Acute on chronic hypoxic respiratory failure Pulmonary hypertension Congestive heart failure Morbid obesity Acute on chronic renal failure Pancytopenia Events: Patient is currently on supplemental O2 On 2 LPM NC Taper O2 as tolerated BiPAP at night from 10 PM to 6 AM for ROMAINE; supplemental O2 when awake. Patient with productive cough. CTAB on exam Patient passed swallow eval. HOB elevation Aspiration precautions Diet is puree diet - feed with assistance. Recommend SNF placement Continue physical therapy Chest x-ray shows increased interstitial prominence ABG reviewed, compensated Remains on amiodarone drip Cardiology recs appreciated Continue bronchodilators. Completed antibiotics Monitor WBC. Hypernatremia - sodium of 147 IV fluids with D5W for 12 hours Monitor blood pressure -midodrine for BP support Remains off pressors, monitor hemodynamics No further bloody bowel movements. Monitor hemoglobin - currently stable. Monitor platelet count - currently 82 K Protonix BID EGD reviewed, showed sliding-type hiatal hernia. S/p colonoscopy - showed diverticulosis and hemorrhoids. GI recs appreciated. Hemodialysis per Nephrology Nephrology recs appreciated Diurese with Lasix PRN Monitor renal function. Monitor electrolytes. Supplement as necessary. Monitor ins and outs. Labs and imaging reviewed. Plan: Supplemental oxygen Titrate to keep O2 sats above 92%. BiPAP at nighttime Pressors as necessary for hemodynamic support Titrate to keep mean arterial pressure greater than 65 mmHg Continue bronchodilators. Continue antibiotics Amiodarone for AFib Follow up Cardiology recs Follow up Nephrology recs HD per Nephrology Diurese to euvolemia Monitor renal function. Monitor electrolytes. Supplement as necessary. Hyperkalemia resolved Monitor ins and outs. DVT prophylaxis. Prognosis: Poor given patient's multiple co-morbidities. Rest of plan per hospitalist and other consultants. Thank you, Dr. Longo, for allowing me to participate in this patient's care. Further recommendations will depend on the patient's clinical course. Please do not hesitate to contact me if you have any questions or concerns. This medical document was created using an electronic medical record system with [employer] dictation system. Although these documentations are being carefully reviewed, there may still be some phonetic and typographical changes. The errors are purely typographical, due to imperfection on the software program, and do not reflect any compromise in the patient's medical care. Plan discussed with: Patient, Other (RN) Visit Coding Pulmonary Billing Provider: SILVIA RIVAS MD Date of Service if different f: Sep 11, 2025 Common Visit Codes: 24449-[id number] INP/OBS CARE(HIGH) SILVIA RIVAS MD Sep 11, 2025 23:22
[2025-09-12] VITALS (16 sets, daily range): BP systolic 113–132; BP diastolic 53–70; PULSE 61–113; RESP 17–24; TEMP 97.3–98.6; O2SAT 93–99
[2025-09-12 07:08] LABS: Hematocrit 25.7 % (36.0-46.0); Hemoglobin 8.3 g/dL (12.2-16.2); Mean Corpuscular Hemoglobin 29.7 pg (28.0-32.0); Mean Corpuscular Volume 91.7 fL (80.0-100.0); Nucleated Red Blood Cells % 0.1 %
[2025-09-12 07:38] LABS: Albumin 3.3 g/dL (3.2-4.8); Alkaline Phosphatase 73 U/L (46-116); Anion Gap 8 (5-15); BUN/Creatinine Ratio 11.2 (10.0-20.0); Blood Urea Nitrogen 11 mg/dL (9-23); Calcium 8.7 mg/dL (8.7-10.4); Chloride 106 mmol/L (98-107); Glucose 104 mg/dL (74-106); Total Protein 6.4 g/dL (5.7-8.2)
[2025-09-12 07:41] LABS: Alanine Aminotransferase < 9 U/L (7-40); Bilirubin, Total 1.3 mg/dL (0.2-1.0); Carbon Dioxide 32 mmol/L (20-31); Potassium 3.4 mmol/L (3.5-5.1); Sodium 146 mmol/L (136-145)
[2025-09-12] MEDS: POTASSIUM EFFERVESENT TAB 25 MEQ PO ONE (11:14)
--- NOTE | 2025-09-12 21:28 | DVHPNRES ---
Progress Note Date Seen: Sep 12, 2025 Resident Creating Document: KLAUDIA LOWE RESIDENT Has the PT tested + for MRSA If YES, has PT been informed?: No Medical Necessity Reason Pt with a Central, PICC or Fol: Yes The following are medically ne: PICC Line, Abreu Catheter Subjective Review of Systems Ms. Worthington is a 65 year old female with past medical history of HFpEF liver cirrhosis, chronic atrial fibrillation, anemia with multiple blood transfusions in the past, and pulmonary hypertension, who presented to [facility] via EMS due shortness of breath. As per her sons, the patient has had progressively worsening bilateral leg edema for the last month associated with worsening shortness of breath for two weeks. They state that she is compliant with her medications, however, every few months they have to take their mom to the hospital for similar symptoms, with most recent hospitalization in late May 2025. She was seen by her home health nurse on Friday (08/15/2025) night, who told the family to call EMS. As per records, on scene she was found to have a saturation of 90% on room air, she placed on 2 L NC with improvement to 92% and brought to the emergency department. On initial evaluation in the ER, she was afebrile, MAP within normal range, saturating adequately on 2L NC. She was found to have anasarca reaching up to her thighs. 12 lead EKG showed atrial fibrillation. Initial labs are significant for pancytopenia, hyperkalemia, BUN 84, creatinine 2.14, BNP 207, troponins negative, and lipase 178. UA is consistent with a UTI. Chest Xray significant for hazy opacities throughout the right lung, and stable cardiomediastinal enlargement. The patient was started on IV Lasix, hyperkalemia protocol, IV antibiotics, and of 1 PRBC and was admitted for further work up and management. The patient was evaluated by nephrology who initially recommended diuresis, albumin and low dose dopamine, and midodrine, however, due to progressively worsening kidney function, dialysis was recommended. On 08/18/2025 patient was found lethargic and disoriented, blood gas showed hypoxic and hypercapnic respiratory failure, she was started on BiPAP and transferred to the ICU. Mentation continued to deteriorate and required intubation for airway protection and respiratory insufficiency. Patient presented two large bloody bowel movements requiring emergent transfusion of 2 PRBCs and vasopressors. She was evaluated by gastroenterology who recommended use of PPI, octreotide, and transfusions as needed with endoscopy when stable. Prior medical history: HFrEF, Liver cirrhosis, Chronic Atrial Fibrillation, Anemia s/p multiple blood transfusions, and pulmonary hypertension Prior surgical history: 3 c-sections Social: Sons deny any previous drug, tobacco, or alcohol use. She recently moved to the area to live with her son, Dalia. 09/05/2025: Patient was seen at bedside. Patient failed CPAP trial yesterday due to low tidal volume, tachycardia, tachypnea. Patient was diuresing very well with output -2056. Holding off IV Lasix, discontinued meropenem. Repeat urine analysis ordered. Patient is day 17 of intubation, discussed tracheostomy option with family if CPAP trial fails. Patient's son, who is the POA demonstrated understanding, we will continue this discussion after CPAP trial tomorrow. 09/06/2025: Today, CPAP trial stopped after 3-1/2 hours due to tachypnea, low tidal volume and accessory muscle use. Labs show elevated sodium, ordered free water. IV spironolactone before CPAP trial in morning tomorrow. 09/07/2025: Patient was seen at bedside. No significant overnight events. CPAP trial today in morning further on 04/19 pressures. Patient was eventually extubated. Ordered folic acid, Lasix 20. We will try feeding tomorrow. Patient had low-sodium, supplemented. Continue free water in context of hypernatremia. 09/08/2025: Patient was seen at bedside. Patient was extubated yesterday. Tachypnea overnight, required BiPAP. Patient had low-grade fever overnight. Patient had tachycardia overnight, switched p.o. amiodarone to drip. On 2 L oxygen with nasal cannula during daytime. As the day progressed patient started getting dyspneic, started on BiPAP. Pressure setting changed, FiO2 reduced to 30%, EPAP 8. ABG and CXR ordered. Continue on nightly BiPAP. We will continue Lasix p.r.n.. We will closely monitor WBC count. Discharge planning based on PT recommendations. 09/09/2025: Patient was seen at bedside. No significant overnight events. Patient was transferred to telemetry. Chest x-ray shows increased pulmonary vascular congestion. Physical therapy on board. Per nurse, physical therapy was unable to work with patient due to tachycardia with RVR. 09/10/2025: Patient seen on bedside. Patient was sleepy and tired. Currently on 2 L room air. A&O x3, no new complaints. PT on board. 09/12/2025: Patient was seen at bedside. Patient is complaining of right knee pain limiting physiotherapy. Ordered lab workup for uric acid. Switch IV medications to p.o.. We will consult social services counselor for placement in SNF for physical therapy. Objective vital signs Vital Sign Date Time Temp Pulse Resp B/P (MAP) Pulse Ox O2 Delivery O2 Flow Rate FiO2 09/12/25 21:00 97.6 93 18 118/65 (82) 98 97.6 09/12/25 08:25 Nasal Cannula* 2 28 Total Intake and Output 09/11/25 09/11/25 09/12/25 15:00 23:00 07:00 Intake Total 316.84 ml 186.66 ml 200 ml Output Total 100 ml Balance 316.84 ml 186.66 ml 100 ml medications Current Medications Medications Dose Ordered Sig/Erum Route Start Time Stop Time Status Last Admin Dose Admin Acetaminophen 650 mg Q6HP PRN PO 08/15/25 22:15 Sodium Chloride 10 ml QSHIFT@10,22 IV 08/19/25 22:00 09/12/25 09:08 10 ML Albumin Human 100 ml @ 100 mls/hr PRN PRN IV 08/22/25 17:00 Sodium Chloride 10 meq/Potassium Chloride 10 meq/ Calcium Gluconate 6.3 meq/Magnesium Sulfate 10 meq/ Multivitamins 10 ml/Potassium Phosphate 20 meq/ Amino Acids/ Dextrose/Purified Water 1,038.0938 ml @ 43 mls/hr Q24H9M IV 08/26/25 22:00 08/27/25 21:59 Cancel Enteral Nutritional Formula 1,000 ml 30ML/HR GT 08/26/25 15:00 09/08/25 19:27 1,000 ML Lactulose 30 ml DAILY PO 08/28/25 10:00 09/12/25 09:08 30 ML Albuterol 2.5 mg Q4HP PRN NEB 09/04/25 09:45 09/10/25 05:53 2.5 MG Spironolactone 50 mg DAILY PO 09/07/25 10:00 09/12/25 09:08 50 MG Ipratropium [place] 0.5 mg Q4HPRN PRN NEB 09/08/25 01:45 09/08/25 18:58 0.5 MG Folic Acid 1 mg DAILY PO 09/13/25 10:00 Amiodarone HCl 200 mg DAILY PO 09/13/25 10:00 Sildenafil Citrate 20 mg BID@0600,1800 PO 09/12/25 18:00 Carvedilol 3.125 mg BID PO 09/12/25 22:00 Patient Own Medication 10 mg DAILY PO 09/13/25 10:00 Patient Own Medication 1 DAILY PO 09/13/25 10:00 Pantoprazole Sodium 40 mg BID PO 09/13/25 10:00 Examination General: A&O x3; Opens eyes spontaneously. HEENT: Pupils B/L equal and reactive to light. Normocephalic, atraumatic. Whispering. Respiratory/pulmonary: Crackles in bilateral breath sounds. Cardiovascular: Irregular heart rate Abdomen: Soft abdomen on palpation, normal bowel sounds Extremities: Warm bilateral extremities. B/L upper arm ecchymosis. Trace pitting edema in B/L upper and lower extremities. Skin: Small partial thickness linear skin tears (healing with scabs) approximately 0.5X1 cm in abdominal folds, left arm and left lower leg, healing with scabs. Neurological: Patient is A&O x3, following commands. Motor strength 3/5 laboratory and microbiology Laboratory Tests 09/12/25 12:35 09/12/25 06:36 Test 09/12/25 06:36 Range/Units Serum Glucose 104 74-106 mg/dL Microbiology Date/Time Source Procedure Growth Status 08/23/25 16:30 Urine - Abreu Port Urine Culture - Final Complete 08/18/25 10:55 Nose MRSA Screen - Final Complete Problem List/Assessment/Plan Problem List/Assessment/Plan Neurology # Sedation, Analgesia Propofol 10 mcg/kg/hr Fentanyl 150 mcg/hr # Acute metabolic encephalopathy likely due to hyperammonemia Ammonia levels have normalized. Cardiovascular # Acute on chronic HFpEF heart failure Likely precipitated by fluid overload and sepsis Echocardiogram: LVEF 50%. mild mitral regurgitation. mild tricuspid regurgitation. mild to moderate pulmonic regurgitation Bumex drip, Furosemide 20 mg IV discontinued Jardiance, Furosemide, and carvedilol held at this time CXR on 09/01/2025 show increased right hemithorax pleural opacification. Holding off IV Lasix Cardiology on board. Per cardiology, IV amiodarone, diuretics with Lasix, GI prophylaxis. # Chronic Atrial Fibrillation Continue amiodarone 200 mg p.o daily # Severe Pulmonary Hypertension Sildenafil held Restarted on Ambrisentan 5 mg # Bradycardia Midodrine 10 mg TID Discontinued Dopamine 2 mcg d/t tachycardia # Septic shock (POA Unable to determine) D/c'd Levophed Respiratory # Ventilator Intubated (08/19/2025) Extubated on 09/07/2025 # Acute hypoxic respiratory failure # Acute hypercapnic respiratory failure # Sleep apnea, possible # Obesity hyperventilation syndrome, possible S/p extubation Blood gas show normalization of pH, pCO2, pO2 On 2 L oxygen with nasal cannula during daytime. ABG and CXR ordered. Continue on nightly BiPAP. Patient on CPAP at home # Pulmonary Edema with bilateral pleural effusions Chest xray: Stable appearing pulmonary edema and small bilateral pleural effusions. # Pneumonia, ruled out Azithromycin discontinued Gastrointestinal # Acute hypovolemic shock likely due to Lower GI Bleed # Segmental ischemic colitis or diverticular disease, possible 8 PRBC transfusions, 4 FFPs, 5 Platelet transfusions Stool occult positive, discontinued Sandostatin Protonix 40 mg IV BID Vasopressin discontinued Quadlevo discontinued Dopamine switched to Levophed d/t Tachycardia; NS 250 cc bolus given H&H stable; continue monitoring Completed Bedside colonoscopy today. As per GI specialist, patient has diverticulosis, likely the source GI bleed. No active bleed seen. # Liver cirrhosis likely due to fatty liver disease # Acute metabolic encephalopathy likely due to hyperammonemia # Hypoalbuminemia MELD score 26 Continue lactulose Monitor ammonia Albumin supplemented Continue IV Lasix 20 mg PRN Continue spironolactone # Cholelithaisis Abdominal US: The gallbladder wall measures 0.3 cm and is normal in size. Gallstones are noted. # 2 cm sliding type hiatal hernia # Mild gastritis EGD 08/26/2025: 1-2 cm sliding-type hiatal hernia with no significant erosive esophagitis, mild gastritis involving the antrum and body of the stomach with some linear gastric erosions GI recommended Protonix 40 mg b.i.d. IV, discontinue IV Sandostatin drip, continue to monitor labs and transfuse if hemoglobin drops below 7, elective colonoscopy once medically stabilized Continue IV iron therapy CT scan of the abdomen pelvis shows liver cirrhosis, splenomegaly. Pulmonary hypertension, B/L LL opacities. Enlargement of the uterus with a lobulated contour and scattered calcifications, possibly referable to fibroids. Genitourinary # Abreu catheter present draining clear urine # Complicated UTI Urine culture: E coli ESBL Discontinued Meropenem UA shows signs of improved infection UC: No growth after 48 hours Urine analysis from 09/06/25 negative for UTI Nephrology # RUDDY on CKD likely due to hemodynamically mediated (d/t VMN) Per nephrology, renal function is improving, dialysis is being held at this time. Jose M catheter remain in its place due to thrombocytopenia until patient is more stabilized. # Hyperkalemia, resolved # Hypernatremia Monitor BMP D5 given Infectious disease # Sepsis d/t below (POA Unable to determine) # Possible Septic Shock due to below (POA Unable to determine) # Complicated ESBL UTI D/c'd Meropenem 1 g IV BID Urine Culture: E. Coli ESBL Follow up UA shows improvement; Follow up UC shows no growth at 48 hours Vasopressin (holding off for now) Quadlevo discontinued Hem/onc # Acute hypovolemic shock likely due to Lower GI Bleed Managed w/ 8 PRBC transfusions, 4 FFPs, 5 Platelet transfusions D/c Sandostatin drip Protonix 40 mg IV BID Dopamine switched to Levophed d/t Tachycardia (08/29/25); Levophed discontinued in context of SBP> 90 # Pancytopenia Possibly associated to liver cirrhosis We will closely monitor WBC count. Endocrinology # Morbid Obesity BMI 57.4 DVT prophylaxis: SCDs Peptic ulcer prophylaxis: Pantoprazole 40 mg p.o. Nutrition: Passed bedside swallow eval, trial of p.o nutrition with close supervision. Aspiration precautions ordered Lines -R PICC line 08/19 -Abreu catheter 08/19 -ET tube: 08/19 -Jose M [facility]: Propofol 10 mcg/kg/min Fentanyl 150 mcg/hr Vasopressin held Quadlevo discontinued Sandostatin discontinued Dopamine discontinued Levophed started (08/29/25) held Patient on vasopressin (holding off for now), Levophed discontinued in context of SBP> 90. Dopamine discontinued d/t elevated heart rate. Patient is in critical condition, all findings and care plan discussed with her son at bedside. Questions and concerns were thoroughly addressed, prognosis is poor. Critical care time 47 minutes excluding procedure. Code status discussed greater than 20 minutes: Full CODE STATUS. Family at bedside explained about the condition of the patient. Goals of care discussed with son on bedside. Plan discussed with Dr. Gallo Plan discussed with: Son, Other (nurses) My Orders My Orders Orders - KLAUDIA LOWE Procedure Category Date Status Time Folic Acid Tablet PHA 09/13/25 In Process 10:00 Amiodarone Tablet PHA 09/13/25 In Process (Cordarone Tablet) 10:00 Sildenafil Citrate PHA 09/12/25 Logged (Revatio) 18:00 (Nf) Dapagliflozin PHA 09/13/25 In Process Propanediol (Farxiga) 10:00 Patients Own PHA 09/13/25 In Process Medication 10:00 Complete Blood Count LAB 09/13/25 Verified 04:00 Comprehensive LAB 09/13/25 Verified Metabolic Panel 04:00 Carvedilol Tablet PHA 09/12/25 In Process (Coreg Tablet) 22:00 CC Plasma Assessment Blood Product Administration S: 12:45 Visit Coding STANDARD RES Billing Provider: ALINA GALLO MD Date of Service if different f: Sep 12, 2025 Common Visit Codes: [id number] CARE 30-74 MIN KLAUDIA LOWE RESIDENT Sep 12, 2025 21:28 ALINA GALLO MD Sep 13, 2025 15:24
[2025-09-12] MEDS: SILDENAFIL CITRATE 20 MG TAB PO SCH (21:37)
[2025-09-12] MEDS: FOLIC ACID 1 MG TAB PO ONE (21:38)
[2025-09-12] MEDS: CARVEDILOL 3.125 MG TAB PO SCH (21:38)
--- NOTE | 2025-09-12 22:35 | DVHPN2 ---
Progress Note - Dictate Date Seen: Sep 12, 2025 Has the PT tested + for MRSA If YES, has PT been informed?: No Medical Necessity Reason Pt with a Central, PICC or Fol: Yes The following are medically ne: PICC Line, Abreu Catheter Subjective Patient was seen and evaluated in follow up. Patient remains on 2 LPM NC. Patient c/o generalized pain. HGB 8.3, HCT 25.7, PLT 81, NA 146, K 3.4, CO2 32. Telemetry reviewed. vital signs Vital Sign Date Time Temp Pulse Resp B/P (MAP) Pulse Ox O2 Delivery O2 Flow Rate FiO2 09/12/25 21:38 93 118/65 09/12/25 21:00 97.6 18 98 97.6 09/12/25 08:25 Nasal Cannula* 2 28 Total Intake and Output 09/11/25 09/11/25 09/12/25 15:00 23:00 07:00 Intake Total 316.84 ml 186.66 ml 200 ml Output Total 100 ml Balance 316.84 ml 186.66 ml 100 ml medications Current Medications Medications Dose Ordered Sig/Erum Route Start Time Stop Time Status Last Admin Dose Admin Acetaminophen 650 mg Q6HP PRN PO 08/15/25 22:15 Sodium Chloride 10 ml QSHIFT@10,22 IV 08/19/25 22:00 09/12/25 21:38 10 ML Albumin Human 100 ml @ 100 mls/hr PRN PRN IV 08/22/25 17:00 Sodium Chloride 10 meq/Potassium Chloride 10 meq/ Calcium Gluconate 6.3 meq/Magnesium Sulfate 10 meq/ Multivitamins 10 ml/Potassium Phosphate 20 meq/ Amino Acids/ Dextrose/Purified Water 1,038.0938 ml @ 43 mls/hr Q24H9M IV 08/26/25 22:00 08/27/25 21:59 Cancel Enteral Nutritional Formula 1,000 ml 30ML/HR GT 08/26/25 15:00 09/08/25 19:27 1,000 ML Lactulose 30 ml DAILY PO 08/28/25 10:00 09/12/25 09:08 30 ML Albuterol 2.5 mg Q4HP PRN NEB 09/04/25 09:45 09/10/25 05:53 2.5 MG Spironolactone 50 mg DAILY PO 09/07/25 10:00 09/12/25 09:08 50 MG Ipratropium [place] 0.5 mg Q4HPRN PRN NEB 09/08/25 01:45 09/08/25 18:58 0.5 MG Folic Acid 1 mg DAILY PO 09/13/25 10:00 Amiodarone HCl 200 mg DAILY PO 09/13/25 10:00 Sildenafil Citrate 20 mg BID@0600,1800 PO 09/12/25 18:00 09/12/25 21:37 20 MG Carvedilol 3.125 mg BID PO 09/12/25 22:00 09/12/25 21:38 3.125 MG Patient Own Medication 10 mg DAILY PO 09/13/25 10:00 Patient Own Medication 1 DAILY PO 09/13/25 10:00 Pantoprazole Sodium 40 mg BID PO 09/13/25 10:00 objective GENERAL: Alert and oriented x 3. Ill appearing, morbidly obese. EYES: PERRL, EOMI. Anicteric. HENT: Moist mucous membranes. LUNGS: Decreased breath sounds. CARDIOVASCULAR: Irregular rate and rhythm. ABDOMEN: Soft, non-tender and non-distended. EXTREMITIES: No edema. NEUROLOGIC: No focal neurological deficits. SKIN: Warm, dry. laboratory and microbiology Laboratory Tests 09/12/25 12:35 09/12/25 06:36 Test 09/12/25 06:36 Range/Units Serum Glucose 104 74-106 mg/dL Problem List Acute metabolic encephalopathy. Acute on chronic HFpEF heart failure. Atrial Fibrillation with RVR. Severe Pulmonary Hypertension. Bradycardia. Septic shock. Acute hypoxic and hypercapnic respiratory failure. Sleep apnea. Acute hypovolemic shock. Liver cirrhosis likely due to fatty liver disease. Hypoalbuminemia. Complicated UTI . RUDDY on CKD. Hypernatremia. Pancytopenia. Morbid Obesity. Assessment/Plan Continued all current supportive medical care. Amiodarone. Coreg. GI prophylactics. Aldactone. Additional plan as per the hospital course. Plan discussed with: Patient CC Plasma Assessment Blood Product Administration S: 12:45 KATELYN ARTHUR MD Sep 12, 2025 22:35
--- NOTE | 2025-09-12 23:13 | DVHPN2 ---
Progress Note - Dictate Date Seen: Sep 12, 2025 Has the PT tested + for MRSA If YES, has PT been informed?: No Medical Necessity Reason Pt with a Central, PICC or Fol: Yes The following are medically ne: PICC Line, Abreu Catheter Subjective Patient passed swallow evaluation Patient has been started on a pureed diet and taking her medications Patient had a bowel movement No active GI bleeding, normal brown stool, hemoglobin stable at 8.3 Patient required BiPAP this morning because of shallow breathing EGD was negative, small hiatal hernia mild gastritis no bleeding Colonoscopy showed diverticulosis vital signs Vital Sign Date Time Temp Pulse Resp B/P (MAP) Pulse Ox O2 Delivery O2 Flow Rate FiO2 09/12/25 21:38 93 118/65 09/12/25 21:00 97.6 18 98 97.6 09/12/25 08:25 Nasal Cannula* 2 28 Total Intake and Output 09/11/25 09/11/25 09/12/25 15:00 23:00 07:00 Intake Total 316.84 ml 186.66 ml 200 ml Output Total 100 ml Balance 316.84 ml 186.66 ml 100 ml medications Current Medications Medications Dose Ordered Sig/Erum Route Start Time Stop Time Status Last Admin Dose Admin Acetaminophen 650 mg Q6HP PRN PO 08/15/25 22:15 Sodium Chloride 10 ml QSHIFT@10,22 IV 08/19/25 22:00 09/12/25 21:38 10 ML Albumin Human 100 ml @ 100 mls/hr PRN PRN IV 08/22/25 17:00 Sodium Chloride 10 meq/Potassium Chloride 10 meq/ Calcium Gluconate 6.3 meq/Magnesium Sulfate 10 meq/ Multivitamins 10 ml/Potassium Phosphate 20 meq/ Amino Acids/ Dextrose/Purified Water 1,038.0938 ml @ 43 mls/hr Q24H9M IV 08/26/25 22:00 08/27/25 21:59 Cancel Enteral Nutritional Formula 1,000 ml 30ML/HR GT 08/26/25 15:00 09/08/25 19:27 1,000 ML Lactulose 30 ml DAILY PO 08/28/25 10:00 09/12/25 09:08 30 ML Albuterol 2.5 mg Q4HP PRN NEB 09/04/25 09:45 09/10/25 05:53 2.5 MG Spironolactone 50 mg DAILY PO 09/07/25 10:00 09/12/25 09:08 50 MG Ipratropium [place] 0.5 mg Q4HPRN PRN NEB 09/08/25 01:45 09/08/25 18:58 0.5 MG Folic Acid 1 mg DAILY PO 09/13/25 10:00 Amiodarone HCl 200 mg DAILY PO 09/13/25 10:00 Sildenafil Citrate 20 mg BID@0600,1800 PO 09/12/25 18:00 09/12/25 21:37 20 MG Carvedilol 3.125 mg BID PO 09/12/25 22:00 09/12/25 21:38 3.125 MG Patient Own Medication 10 mg DAILY PO 09/13/25 10:00 Patient Own Medication 1 DAILY PO 09/13/25 10:00 Pantoprazole Sodium 40 mg BID PO 09/13/25 10:00 objective General: Obese, afebrile, palor, mucosae are moist Cardiovascular: Regular S1 and S2. No murmurs, gallops or rubs. No JVD elevation. Bilateral pedal edema. Respiratory: Decreased breath sounds heard on auscultation, extubated on 2 L nasal cannula Abdomen: Soft, nontender, nondistended, hypoactive bowel sounds, no rebound tenderness, no organomegaly, no masses Genitourinary: Abreu catheter seen Neurological: Pupils are isocoric and reactive. laboratory and microbiology Laboratory Tests 09/12/25 12:35 09/12/25 06:36 Test 09/12/25 06:36 Range/Units Serum Glucose 104 74-106 mg/dL Problems(with codes): (1) Neutropenia (2) CHF exacerbation (3) Rectal bleeding (4) Thrombocytopenia (5) Anemia (6) Hypoxemia Prognosis Plan Continue supportive care Advance diet as tolerated Discontinue NG tube Continue PT Plan discussed with: Patient CC Plasma Assessment Blood Product Administration S: 12:45 STEPHANIE CLAYTON MD Sep 12, 2025 23:13
[2025-09-13] VITALS (9 sets, daily range): BP systolic 104–129; BP diastolic 45–64; PULSE 69–92; RESP 17–20; TEMP 97.4–98.7; O2SAT 95–99
[2025-09-13] MEDS ORDERED: PANTOPRAZOLE 40 MG TAB PO SCH (06:00)
[2025-09-13 07:13] LABS: Nucleated Red Blood Cells % 0.1 %
[2025-09-13 07:15] LABS: Hematocrit 24.8 % (36.0-46.0); Hemoglobin 8.3 g/dL (12.2-16.2); Mean Corpuscular Hemoglobin 29.9 pg (28.0-32.0); Mean Corpuscular Volume 89.8 fL (80.0-100.0)
[2025-09-13 07:24] LABS: Alkaline Phosphatase 72 U/L (46-116); Anion Gap 9 (5-15); BUN/Creatinine Ratio 9.5 (10.0-20.0); Blood Urea Nitrogen 9 mg/dL (9-23); Calcium 8.8 mg/dL (8.7-10.4); Carbon Dioxide 29 mmol/L (20-31); Chloride 105 mmol/L (98-107); Sodium 143 mmol/L (136-145); Total Protein 6.5 g/dL (5.7-8.2)
[2025-09-13 07:25] LABS: Albumin 3.4 g/dL (3.2-4.8)
[2025-09-13 07:26] LABS: Alanine Aminotransferase < 9 U/L (7-40); Bilirubin, Total 1.3 mg/dL (0.2-1.0); Glucose 118 mg/dL (74-106); Potassium 3.4 mmol/L (3.5-5.1)
[2025-09-13] MEDS: FOLIC ACID 1 MG TAB PO SCH (09:22)
[2025-09-13] MEDS: PANTOPRAZOLE 40 MG TAB PO SCH (09:24)
[2025-09-13] MEDS: AMIODARONE HCL 200 MG TAB PO SCH (09:24)
[2025-09-13] MEDS: POTASSIUM CHL 10 Meq TABLET PO ONE (09:35)
[2025-09-13] MEDS ORDERED: LACT10SO3 PO (15:59)
[2025-09-13] MEDS ORDERED: SPIR25TA PO (15:59)
[2025-09-13] MEDS ORDERED: FOLI-119 PO (15:59)
--- NOTE | 2025-09-13 17:10 | DVHDSRES ---
Discharge Summary Date of Admission Resident Creating Document: KLAUDIA LOWE RESIDENT Aug 15, 2025 at 20:38 Date of Discharge: Sep 13, 2025 Labs/Diagnostic Data: Laboratory Results Test 09/13/25 10:51 09/13/25 06:29 09/12/25 12:35 09/09/25 03:56 Potassium Level 3.6 mmol/L (3.5-5.1) White Blood Count 2.8 10^3/uL (4.4-10.8) Red Blood Count 2.77 10^6/uL (4.0-5.20) Hemoglobin 8.3 g/dL (12.2-16.2) Hematocrit 24.8 % (36.0-46.0) Mean Corpuscular Volume 89.8 fL (80.0-100.0) Mean Corpuscular Hemoglobin 29.9 pg (28.0-32.0) Mean Corpuscular Hemoglobin Concent 33.3 g/dL (32.0-36.0) Red Cell Distribution Width 21.1 % (11.8-14.3) Platelet Count 83 10^3/uL (140-450) Mean Platelet Volume 8.3 fL (6.9-10.8) Neutrophils (%) (Auto) 70.5 % (37.0-80.0) Lymphocytes (%) (Auto) 10.8 % (10.0-50.0) Monocytes (%) (Auto) 13.7 % (0.0-12.0) Eosinophils (%) (Auto) 4.6 % (0.0-7.0) Basophils (%) (Auto) 0.4 % (0.0-2.0) Neutrophils # (Auto) 1.9 10 ^3/uL (1.6-8.6) Lymphocytes # (Auto) 0.3 10 ^3/uL (0.4-5.4) Monocytes # (Auto) 0.4 10 ^3/uL (0-1.3) Eosinophils # (Auto) 0.1 10 ^3/uL (0-0.8) Basophils # (Auto) 0 10 ^3/uL (0-0.2) Nucleated Red Blood Cells 0.1 % Sodium Level 143 mmol/L (136-145) Chloride Level 105 mmol/L (98-107) Carbon Dioxide Level 29 mmol/L (20-31) Anion Gap 9 (5-15) Blood Urea Nitrogen 9 mg/dL (9-23) Creatinine 0.95 mg/dL (0.550-1.02) Glomerular Filtration Rate Calc 66 mL/min (>90) BUN/Creatinine Ratio 9.5 (10.0-20.0) Serum Glucose 118 mg/dL (74-106) Calcium Level 8.8 mg/dL (8.7-10.4) Total Bilirubin 1.3 mg/dL (0.2-1.0) Aspartate Amino Transferase (AST) 21 U/L (13-40) Alanine Aminotransferase (ALT) < 9 U/L (7-40) Alkaline Phosphatase 72 U/L (46-116) Total Protein 6.5 g/dL (5.7-8.2) Albumin 3.4 g/dL (3.2-4.8) Uric Acid 8.7 mg/dL (3.1-7.8) Magnesium Level 1.9 mg/dL (1.6-2.6) Test 09/08/25 19:42 09/08/25 16:17 09/07/25 09:16 09/07/25 03:15 Blood Gas Specimen Type Arterial Blood Gas Sample Site Left radial Blood Gas Patient Temperature 37.0 Arterial Blood Date Drawn [id number] Arterial Blood pH 7.430 (7.350-7.450) Arterial Blood Partial Pressure CO2 44.3 mmHg (32.0-45.0) Arterial Blood Partial Pressure O2 75.0 mmHg (83.0-108.0) Arterial Blood HCO3 28.7 mmol/L (21.0-28.0) Arterial Blood Oxygen Saturation 93.8 % (94.0-98.0) Arterial Blood Base Excess 4.0 mmol/L (-2.0-3.0) Arterial Blood Oxyhemoglobin 92.8 % (94.0-98.0) Arterial Blood Carboxyhemoglobin 1.0 % (0.5-1.5) Arterial Blood Methemoglobin 0.1 % (0.0-1.5) Arterial Blood Deoxyhemoglobin 6.1 % (0.0-5.0) George Test Yes Blood Gas Total Hemoglobin 9.70 g/dL (12.0-16.0) Blood Gas Liter Flow 2.00 Blood Gas Modality Nasal cannula FiO2 % 28.0 POC Glucose 110 mg/dl (70-106) Blood Gas Spontaneous Rate 24 Blood Gas Spontaneous Tidal Volume 443 Blood Gas Pressure Support 8 Blood Gas PEEP or CPAP 5.0 Differential Total Cells Counted 100.0 (100) Neutrophils % (Manual) 63 (37.0-80.0) Band Neutrophils % (Manual) 0 Lymphocytes % (Manual) 24 (10.0-50.0) Monocytes % (Manual) 7 (0-12) Eosinophils % (Manual) 6 (0-7) Basophils % (Manual) 0 (0.0-2.0) Metamyelocytes % (manual) 0 Myelocytes % (Manual) 0 Promyelocytes % (Manual) 0 Blast Cells % (Manual) 0 Reactive Lymphocytes 0 Platelet Estimate Decreased Anisocytosis (manual) Slight Test 09/07/25 03:12 09/06/25 06:48 09/06/25 04:00 09/02/25 03:43 Ammonia 25 umol/L (11-32) Blood Gas Set Respiration Rate 22.0 Blood Gas Tidal Volume 450.0 Urine Color Yellow (Yellow) Urine Clarity Clear (Clear) Urine pH 7.5 (5.0-9.0) Urine Specific [place] 1.016 (1.001-1.035) Urine Protein 1+ (Negative) Urine Ketones Trace (Negative) Urine Blood Negative /uL (Negative) Urine Nitrite Negative (Negative) Urine Bilirubin Negative (Negative) Urine Urobilinogen 4 mg/dL (Negative) Urine Leukocyte Esterase Negative /uL (Negative) Urine RBC 2 /hpf (0 - 4) Urine Microscopic WBC 5 /HPF (0-5) Urine Squamous Epithelial Cells Mod /hpf (<5) Urine Bacteria None seen /hpf (None Seen) Urine Glucose Normal mg/dL (Normal) Prothrombin Time 12.9 sec (9.3-11.8) Prothrombin Time INR 1.24 (0.9-1.15) Activated Partial Thromboplast Time 35.7 SEC (24.5-34.5) Phosphorus Level 2.9 mg/dL (2.4-5.1) Test 08/24/25 15:20 08/24/25 03:50 08/23/25 04:05 08/22/25 15:13 Urine Hyaline Casts Few /lpf (0 - 2) Urine Mucus Few (None Seen) Iron Level 59 ug/dL (50-170) Total Iron Binding Capacity 286 ug/dL (250-425) Percent Iron Saturation 20.6 % (15-50) Ferritin 38.2 ng/mL (10-291) Triglycerides Level 156 mg/dL (< 150) Tumor Marker Alpha Fetoprotein 2.0 ng/mL (0.0-9.2) Anti-Nuclear Antibody Screen Negative (Negative) Hepatitis C Antibody Negative (Negative) Test 08/21/25 02:55 08/20/25 15:46 08/19/25 23:00 08/19/25 20:37 Poikilocytosis (manual) Slight Tear Drop Cells Few Ovalocytes Few Schistocytes Few Hepatitis B Surface Antigen Negative (Negative) Hepatitis B Surface Antibody Positive (Negative) Stool Occult Blood Positive (Negative) Stool Occult Blood Sample #3 (Negative) Specimen Drawn By Blood Gas Critical Value Read Back yes Blood Gas Notified Whom jean bolden md Blood Gas Notified Time [id number] Blood Gas Notified By Test 08/19/25 16:00 08/18/25 14:00 08/18/25 09:35 08/16/25 11:00 Lactic Acid Level 1.2 mmol/L (0.4-2.0) Blood Gas EPAP 5 Blood Gas IPAP 18 Creatine Kinase 49 U/L (34-145) Vitamin D 25-Hydroxy 59.6 ng/mL (30.0-100) Test 08/16/25 04:10 08/16/25 03:21 08/15/25 20:10 08/15/25 19:17 Urine WBC Clumps Present /hpf (None Seen) Urine Creatinine 50.59 mg/dL (30.0-125.0) Urine Protein/Creatinine Ratio 0.61 Urine Sodium 46 mmol/L (40-220) Urine Total Protein 30.8 mg/dL (1-14) Parathyroid Hormone (Intact) 186.8 pg/mL (18.4-80.1) Troponin I High Sensitivity 24 ng/L (</=34) B-Type Natriuretic Peptide 207.44 pg/mL (0-100) Lipase 178 U/L (12-53) Other Laboratory Tests 09/13/25 10:51 09/13/25 06:29 Brief Hx & Hospital Course: History on arrival: Ms. Worthington is a 65 year old female with past medical history of HFpEF liver cirrhosis, chronic atrial fibrillation, anemia with multiple blood transfusions in the past, and pulmonary hypertension, who presented to [facility] via EMS due shortness of breath. As per her sons, the patient has had progressively worsening bilateral leg edema for the last month associated with worsening shortness of breath for two weeks. They state that she is compliant with her medications, however, every few months they have to take their mom to the hospital for similar symptoms, with most recent hospitalization in late May 2025. She was seen by her home health nurse on Friday (08/15/2025) night, who told the family to call EMS. As per records, on scene she was found to have a saturation of 90% on room air, she placed on 2 L NC with improvement to 92% and brought to the emergency department. On initial evaluation in the ER, she was afebrile, MAP within normal range, saturating adequately on 2L NC. She was found to have anasarca reaching up to her thighs. 12 lead EKG showed atrial fibrillation. Initial labs are significant for pancytopenia, hyperkalemia, BUN 84, creatinine 2.14, BNP 207, troponins negative, and lipase 178. UA is consistent with a UTI. Chest Xray significant for hazy opacities throughout the right lung, and stable cardiomediastinal enlargement. The patient was started on IV Lasix, hyperkalemia protocol, IV antibiotics, and of 1 PRBC and was admitted for further work up and management. The patient was evaluated by nephrology who initially recommended diuresis, albumin and low dose dopamine, and midodrine, however, due to progressively worsening kidney function, dialysis was recommended. On 08/18/2025 patient was found lethargic and disoriented, blood gas showed hypoxic and hypercapnic respiratory failure, she was started on BiPAP and transferred to the ICU. Mentation continued to deteriorate and required intubation for airway protection and respiratory insufficiency. Patient presented two large bloody bowel movements requiring emergent transfusion of 2 PRBCs and vasopressors. She was evaluated by gastroenterology who recommended use of PPI, octreotide, and transfusions as needed with endoscopy when stable. The patient was admitted on 08/19/2025 with acute hypoxic and hypercapnic respiratory failure requiring intubation. She had a complex past medical history including chronic heart failure with preserved ejection fraction (HFpEF), chronic atrial fibrillation, severe pulmonary hypertension, morbid obesity (BMI 57.4), liver cirrhosis, and prior GI bleed. Initial presentation was complicated by septic shock, acute metabolic encephalopathy, and RUDDY on CKD. She required vasopressor support, ventilatory management, and aggressive diuresis. Hospital course: Patient was admitted with acute on chronic respiratory failure and exacerbation of heart failure, likely precipitated by fluid overload and sepsis. Her echocardiogram revealed LVEF 50%. mild mitral regurgitation. mild tricuspid regurgitation, mild to moderate pulmonic regurgitation. She received Bumex drip, Furosemide 20 PRN. Cardiology was consulted and recommendations for IV amiodarone, diuretics with Lasix, GI prophylaxis were followed. Infectious workup showed ESBL E. coli UTI treated with meropenem. The patient was intubated for 17 days. Multiple CPAP trials were attempted but failed due to tachypnea and low tidal volumes. Her hospital course was complicated by recurrent tachyarrhythmias requiring IV amiodarone, severe pulmonary hypertension, and episodes of tachycardia with RVR limiting physical therapy. She has history of liver cirrhosis, with multiple episodes of blood in stools. Stool occult was positive. GI was consulted and the patient underwent EGD and colonoscopy. Severe anemia and GI bleed managed with 8 PRBC transfusions, 4 FFPs, 5 Platelet transfusions. EGD showed sliding-type hiatal hernia with no significant erosive esophagitis, mild gastritis. Her colonoscopy revealed diverticulosis without active bleeding. Her initial labs also showed worsening kidney function, nephrology was consulted. Eventually, renal function improved, and dialysis was held. On 09/07/2025, she was successfully extubated and transitioned to BiPAP at night and nasal cannula during the day. Antibiotics were discontinued after completion of course. The patient was gradually transitioned from IV to oral medications, including amiodarone and diuretics. At the time of discharge, the patient was stable on 2 L oxygen via nasal cannula, alert and oriented, but continued to have significant deconditioning and right knee pain limiting mobility. Physical therapy recommended residential facility (SNF) placement for rehabilitation. security services specialist were consulted for discharge planning. Patient will be discharged to SNF when placement arranged. Plan: Discharge to SNF for PT when placement arranged Continue CPAP nightly Follow up in discharge clinic in 72 hours Follow up with PCP in 1 week Follow up with GI in outpatient clinic in 2 weeks Follow with Cardiology in outpatient clinic in 2 weeks Follow with sleep Medicine in outpatient clinic in 2 weeks New Medications: Folic Acid 1 Mg Tab daily Lactulose 30 mL daily Spironolactone (Aldactone) 50 mg daily Allopurinol 100 mg daily TIME SPENT IN DISCHARGE PLANNING WAS 41 MINS Operations or Procedures Operative Report DATE OF OPERATION: 09/02/25 PROCEDURE: Diagnostic Colonoscopy. PREOPERATIVE INDICATION: The patient is a 65 -year-old female undergoing colonoscopy for rectal bleeding POSTOPERATIVE DIAGNOSES: 1. Moderate scattered diverticular disease with no active bleeding at this time 2. Patient had a superficial AVM in the hepatic flexure but no active bleeding 3. 1+ internal hemorrhoids without bleeding otherwise completely normal colonoscopy examination up to the cecum PROCEDURE PERFORMED BY: Rita Elena M.D. SCOPE: Olympus videocolonoscope. ASA CLASS: 3. PREOPERATIVE MEDICATIONS: Patient is intubated on a fentanyl drip PROCEDURE IN DETAIL: After obtaining an informed consent, the patient was placed on left lateral decubitus position. She was then sedated with the above medications. A rectal examination was performed that was normal. The colonoscope was then passed through the anus into the rectosigmoid and through the descending, transverse, and ascending colon up to the cecum with visualization of the appendiceal orifice, base of the cecum and the ileocecal valve. The colonoscope was then withdrawn. No polyps or masses were seen. There was no colitis. There was no fresh or old blood in the colon. Patient had a superficial AVM at the hepatic flexure Patient had scattered diverticular disease more prominent in the sigmoid colon. On retroflexion and straight on view patient had 1+ internal hemorrhoids The patient tolerated the procedure well without difficulty. WITHDRAWAL TIME: 8 minutes QUALITY OF THE PREP: [place] Bowel Prep score: 9. COMPLICATIONS : None SPECIMENS: None DISPOSITION: Stable Continue to monitor in ICU PLAN: 1. Repeat colonoscopy in 10 years 2. Continue supportive care, monitor labs 3. CPAP trial 4. Resume NG-tube feedings 5. Hold blood thinner Operative Report DATE OF OPERATION: 08/26/25 PROCEDURE: Upper Endoscopy with biopsy PREOPERATIVE INDICATION: The patient is a 65 -year-old female undergoing endoscopy for GI bleed POSTOPERATIVE DIAGNOSES: 1. 1-2 cm sliding-type hiatal hernia with no significant erosive esophagitis 2. Mild gastritis involving the antrum and body of the stomach with some linear gastric erosions PROCEDURE PERFORMED BY: Rita Elena GI NURSE: Abbey SCOPE: Olympus videoendoscope. ASA CLASS: 3. PREOPERATIVE MEDICATIONS: Versed 2 mg, patient intubated on a fentanyl drip I administered moderate sedation throughout this _10_ minutes procedure. An independent trained observer pushed medications at my direction, and monitored the patient's level of consciousness and physiological status throughout. PROCEDURE IN DETAIL: After obtaining an informed consent, the patient was placed on left lateral decubitus position. The patient was then sedated with the above medications. A PDA bite block was placed between her teeth. The endoscope was then passed through the oropharynx, into the esophagus, and through the stomach and pylorus up to the second and third part of the duodenum. The endoscope was then withdrawn. The 2nd and 3rd part of the duodenum and the duodenal bulb were normal. There was good bile drainage The pre-pyloric area and antrum showed mild gastritis. There were linear gastric erosions in the body of stomach On retroflexion the fundus and cardia were normal. There was no fresh or old blood in the upper GI tract. Gastric biopsies were obtained The endoscope was then withdrawn into distal esophagus where the patient had a 2 cm sliding-type hiatal hernia with no significant erosive esophagitis Remaining distal and proximal esophagus and oropharynx were unremarkable The patient tolerated the procedure well without difficulty. COMPLICATIONS : None SPECIMENS: Gastric biopsies DISPOSITION: Stable Continue to monitor in ICU PLAN: 1. Await for biopsy result 2. Will place pt on Protonix 40 mg bid IV 3. Discontinue IV Sandostatin drip 4. Continue to monitor labs and transfuse if hemoglobin drops below seven 5. Elective colonoscopy once medically stabilized CXR 08/15/25 INDICATION: SOB TECHNIQUE: Frontal view of the chest. COMPARISON: XY CHEST PORTABLE on DOS: 06/08/25 FINDINGS/IMPRESSION: Hazy opacities are seen throughout the right lung. Unchanged enlargement of the cardiomediastinal silhouette. No pleural effusion or pneumothorax. No acute osseous abnormality. CHEST RADIOGRAPH 09/09/25 Indication: SOB Technique: Single frontal view of the chest was obtained COMPARISON: XY CHEST XRAY 1 VIEW on DOS: 09/08/25, XY CHEST PORTABLE on DOS: 09/07/25, XY CHEST PORTABLE on DOS: 09/06/25, XY CHEST PORTABLE on DOS: 09/05/25, XY CHEST PORTABLE on DOS: 09/04/25 FINDINGS: Lines and Tubes: Endotracheal tube and enteric catheter in satisfactory position. Left PICC in satisfactory position. Lungs: Increased interstitial prominence. This may represent pulmonary vascular congestion and/or viral pneumonia. Pleura: No effusion. No pneumothorax. Cardiomediastinal contours: Cardiomegaly. Bones: Unremarkable IMPRESSION: Lines and tubes in satisfactory position. Increased interstitial prominence. This may represent pulmonary vascular congestion and/or viral pneumonia. US-ABDOMEN TECHNIQUE: Multiple real-time sonographic images of the abdomen were obtained. COMPARISON: US ABDOMEN LIMITED on DOS: 06/10/25 FINDINGS: The liver is homogenous in echogenicity. No intrahepatic biliary ductal dilatation is noted. No hepatic masses were seen. The gallbladder wall measures 0.3 cm and is normal in size. Gallstones are noted. The common duct measures nonvisualized. The right kidney measures 9cm and is normal in size. The right renal echogenicity, contour and cortical thickness are within normal limits. No hydronephrosis or large masses are seen. The left kidney measures 10cm and is normal in size. The left renal echogenicity, contour, and cortical thickness are within normal limits. No hydronephrosis or large masses are seen. The spleen measures 18cm, within normal limits. The echogenicity is within normal limits. The pancreas is not well visualized. The visualized portions of the IVC and aorta are grossly unremarkable. IMPRESSION: Mild asites . Hepatosplenomegaly. Gallstones. EXAM: CT CT AB PEL WO CON-NO ORAL OR IV HISTORY: GI hemorrhage COMPARISON STUDY: US ABDOMEN COMPLETE SONOGRAM on DOS: 08/16/25, MRI PELVIS WO CONTRAST on DOS: 06/12/25, US PELVIC on DOS: 06/11/25, US ABDOMEN LIMITED on DOS: 06/10/25 TECHNIQUE: Multidetector CT of the abdomen and pelvis was performed from lung bases to pubic symphysis. Imaging was performed without IV contrast. Axial, coronal, and sagittal multiplanar reformats were obtained from the axial data set by the technologist. RADIATION DOSE: CTDI vol 27.9 mGy. DLP 1911.7 mGy.cm FINDINGS: Limited evaluation of the solid organs in the absence of IV contrast. Lungs: Incompletely assessed small bilateral pleural effusions with adjacent dense opacity. Small pericardial effusion. Liver: Nodular hepatic contour. Spleen: Splenomegaly measuring up to 16.6 cm. Pancreas: Unremarkable. Gallbladder: Contracted in appearance. Cholelithiasis. Adrenals: Unremarkable Kidneys: Unremarkable. Pelvic Viscera: Enlargement of the uterus with a lobulated contour and scattered calcifications, possibly referable to fibroids. Vasculature: Atherosclerotic aortoiliac calcification. Retroperitoneum: Small abdominopelvic ascites. Bowel: No bowel obstruction. Nasogastric tube is noted. Musculoskeletal: Unremarkable. Soft tissues: Diffuse subcutaneous edema. IMPRESSION: 1. Cirrhosis with stigmata of pulmonary hypertension as detailed. 2. Enlargement of the uterus with lobulated contour and scattered calcification, pelvic ultrasound or pelvic MRI is suggested in further assessment. 3. Dense bilateral lower lobe opacities may be referable to atelectasis, though superimposed infectious / inflammatory process cannot be excluded in the appropriate clinical setting. 4. Please note, evaluation for active bleeding is suboptimal in the absence of IV contrast and if clinically indicated, dedicated CTA may be beneficial in further assessment. Condition at Discharge: Stable Final Diagnosis/Problems List # Acute metabolic encephalopathy likely due to hyperammonemia # Acute on chronic HFpEF heart failure # Chronic Atrial Fibrillation # Severe Pulmonary Hypertension # Bradycardia # Septic shock (POA Unable to determine) # s/p Extubation; 19 days on Ventilator # Acute hypoxic respiratory failure # Acute hypercapnic respiratory failure # Sleep apnea, possible # Obesity hyperventilation syndrome, possible # Pulmonary Edema with bilateral pleural effusions # Pneumonia, ruled out # Acute hypovolemic shock likely due to Lower GI Bleed # Segmental ischemic colitis or diverticular disease, possible # Liver cirrhosis likely due to fatty liver disease # Acute metabolic encephalopathy likely due to hyperammonemia # Hypoalbuminemia # Cholelithaisis # 2 cm sliding type hiatal hernia # Mild gastritis # Complicated UTI # RUDDY on CKD likely due to hemodynamically mediated (d/t [facility]) # Hyperkalemia, resolved # Hypernatremia # Sepsis d/t below (POA Unable to determine) # Possible Septic Shock due to below (POA Unable to determine), resolved # Complicated ESBL UTI # Acute hypovolemic shock likely due to Lower GI Bleed, resolved # Pancytopenia # Morbid Obesity Discharge Disposition: Residential Facility Discharge Instruct/Medications Diet: Regular, Cardiac 2g Na,low cholest Activity: No Restrictions, As Tolerated Follow Up/Referral: Follow with PCP in 1 week Follow up with GI in outpatient clinic in 2 weeks Follow with Cardiology in outpatient clinic in 2 weeks Follow with sleep Medicine in outpatient clinic in 2 weeks Medications: As per EHR New Medications: Folic Acid (Folic Acid) 1 Mg Tab 1 MG PO DAILY for 30 Days, #30 TAB Lactulose (Lactulose) 10 Gm/15 Ml Sara 30 ML PO DAILY for 30 Days, #30 ML Spironolactone (Aldactone) 25 Mg Tab 50 MG PO DAILY for 30 Days, #60 TAB Continued Medications: Albuterol Sulfate (Albuterol Sulfate Hfa) 108 Mcg/Act Aer 108 MCG IN Q6HP PRN for 30 Days, #1 AER Ambrisentan (Ambrisentan) 5 Mg Tab 5 MG PO DAILY, TAB Carvedilol (Carvedilol) 6.25 Mg Tab 1 TAB PO DAILY, #180 TAB 1 Refill Ferrous Sulfate (Ferrous Sulfate) 325 Mg Tb 1 TAB PO DAILY for 30 Days, #30 TAB 1 Refill Sildenafil Citrate (Sildenafil Citrate) 20 Mg Tab 1 TAB PO BID for 90 Days, #270 Discontinued Medications: Dapagliflozin Propanediol (Farxiga) 10 Mg Tab 10 MG PO DAILY, TAB Furosemide (Lasix) 40 Mg Tab 40 MG PO BID for 30 Days, #60 TAB Spironolactone (Spironolactone) 25 Mg Tab 1 TAB PO DAILY, #90 TAB 1 Refill Scheduled Allopurinol (Zyloprim Tablet), 1 TAB PO DAILY Ambrisentan (Ambrisentan), 5 MG PO DAILY, (Reported) Carvedilol (Carvedilol), 1 TAB PO DAILY, (Reported) Ferrous Sulfate (Ferrous Sulfate), 1 TAB PO DAILY Folic Acid (Folic Acid), 1 MG PO DAILY Lactulose (Lactulose), 30 ML PO DAILY Sildenafil Citrate (Sildenafil Citrate), 1 TAB PO BID, (Reported) Spironolactone (Aldactone), 50 MG PO DAILY Scheduled PRN Albuterol Sulfate (Albuterol Sulfate Hfa), 108 MCG IN Q6HP PRN Discontinued Medications Dapagliflozin Propanediol (Farxiga), 10 MG PO DAILY, (Reported) Furosemide (Lasix), 40 MG PO BID Spironolactone (Spironolactone), 1 TAB PO DAILY, (Reported) Discharge Statement: "Patient was advised to return to the ER or call 911 if any headaches, dizziness, shortness of breath, chest pain, abdominal pain, bleeding, fevers, or worsening of medical condition. Patient was counseled about treatment plan, medications, possible side effects, patientverbalized understanding. All questions were answered to the best of my ability. This discharge took greater then 30 minutes in planning, reviewing documentation, counseling the patient, and discussing with other team members." ASSESSMENT ASSESSMENT Assessment # Acute metabolic encephalopathy likely due to hyperammonemia # Acute on chronic HFpEF heart failure # Chronic Atrial Fibrillation # Severe Pulmonary Hypertension # Bradycardia # Septic shock (POA Unable to determine) # s/p Extubation; 19 days on Ventilator # Acute hypoxic respiratory failure # Acute hypercapnic respiratory failure # Sleep apnea, possible # Obesity hyperventilation syndrome, possible # Pulmonary Edema with bilateral pleural effusions # Pneumonia, ruled out # Acute hypovolemic shock likely due to Lower GI Bleed # Segmental ischemic colitis or diverticular disease, possible # Liver cirrhosis likely due to fatty liver disease # Acute metabolic encephalopathy likely due to hyperammonemia # Hypoalbuminemia # Cholelithaisis # 2 cm sliding type hiatal hernia # Mild gastritis # Complicated UTI # RUDDY on CKD likely due to hemodynamically mediated (d/t [facility]) # Hyperkalemia, resolved # Hypernatremia # Sepsis d/t below (POA Unable to determine) # Possible Septic Shock due to below (POA Unable to determine), resolved # Complicated ESBL UTI # Acute hypovolemic shock likely due to Lower GI Bleed, resolved # Pancytopenia # Morbid Obesity Visit Coding STANDARD RES Billing Provider: ALINA GALLO MD Date of Service if different f: Sep 13, 2025 Common Visit Codes: 06095-JTP/OBS DISCH DAY >30min KLAUDIA LOWE RESIDENT Sep 13, 2025 17:10 ALINA GALLO MD Sep 14, 2025 14:46
[2025-09-13] MEDS ORDERED: ALL100T PO (17:17)
[2025-09-13] MEDS: ALLOPURINOL 100 MG TAB PO ONE (18:00)
--- NOTE | 2025-09-13 19:31 | DVHPN2 ---
Progress Note - Dictate Date Seen: Sep 13, 2025 Has the PT tested + for MRSA If YES, has PT been informed?: No Medical Necessity Reason Pt with a Central, PICC or Fol: Yes The following are medically ne: PICC Line, Abreu Catheter Subjective Patient is sleeping comfortably family at bedside Patient is tolerating pureed diet and taking her medications Patient has also been moving her bowels, no active GI bleeding reported Patient just on nasal cannula 2 L EGD was negative, small hiatal hernia mild gastritis no bleeding Colonoscopy showed diverticulosis vital signs Vital Sign Date Time Temp Pulse Resp B/P (MAP) Pulse Ox O2 Delivery O2 Flow Rate FiO2 09/13/25 19:15 96 Nasal Cannula* 2 28 09/13/25 16:44 97.4 89 20 119/64 (82) 97.4 Total Intake and Output 09/12/25 09/12/25 09/13/25 15:00 23:00 07:00 Intake Total 300.2 ml 318 ml 350 ml Output Total 200 ml 200 ml Balance 300.2 ml 118 ml 150 ml medications Current Medications Medications Dose Ordered Sig/Erum Route Start Time Stop Time Status Last Admin Dose Admin Acetaminophen 650 mg Q6HP PRN PO 08/15/25 22:15 Sodium Chloride 10 ml QSHIFT@10,22 IV 08/19/25 22:00 09/13/25 09:21 10 ML Albumin Human 100 ml @ 100 mls/hr PRN PRN IV 08/22/25 17:00 Sodium Chloride 10 meq/Potassium Chloride 10 meq/ Calcium Gluconate 6.3 meq/Magnesium Sulfate 10 meq/ Multivitamins 10 ml/Potassium Phosphate 20 meq/ Amino Acids/ Dextrose/Purified Water 1,038.0938 ml @ 43 mls/hr Q24H9M IV 08/26/25 22:00 08/27/25 21:59 Cancel Lactulose 30 ml DAILY PO 08/28/25 10:00 09/13/25 09:23 30 ML Albuterol 2.5 mg Q4HP PRN NEB 09/04/25 09:45 09/13/25 19:15 2.5 MG Spironolactone 50 mg DAILY PO 09/07/25 10:00 09/13/25 09:23 50 MG Ipratropium [place] 0.5 mg Q4HPRN PRN NEB 09/08/25 01:45 09/13/25 19:15 0.5 MG Folic Acid 1 mg DAILY PO 09/13/25 10:00 09/13/25 09:22 1 MG Amiodarone HCl 200 mg DAILY PO 09/13/25 10:00 09/13/25 09:24 200 MG Sildenafil Citrate 20 mg BID@0600,1800 PO 09/12/25 18:00 09/13/25 18:00 20 MG Carvedilol 3.125 mg BID PO 09/12/25 22:00 09/13/25 09:24 3.125 MG Patient Own Medication 10 mg DAILY PO 09/13/25 10:00 Patient Own Medication 1 DAILY PO 09/13/25 10:00 Pantoprazole Sodium 40 mg BID PO 09/13/25 10:00 09/13/25 09:24 40 MG Allopurinol 100 mg DAILY PO 09/14/25 10:00 objective General: Obese, afebrile, palor, mucosae are moist Cardiovascular: Regular S1 and S2. No murmurs, gallops or rubs. No JVD elevation. Bilateral pedal edema. Respiratory: Decreased breath sounds heard on auscultation, extubated on 2 L nasal cannula Abdomen: Soft, nontender, nondistended, hypoactive bowel sounds, no rebound tenderness, no organomegaly, no masses Genitourinary: Abreu catheter seen Neurological: Pupils are isocoric and reactive. laboratory and microbiology Laboratory Tests 09/13/25 10:51 09/13/25 06:29 Test 09/13/25 06:29 Range/Units Serum Glucose 118 H 74-106 mg/dL Problems(with codes): (1) Neutropenia (2) CHF exacerbation (3) Rectal bleeding (4) Thrombocytopenia (5) Hypoxemia (6) Anemia (7) Acute renal failure (8) Anasarca (9) Hypoxic respiratory failure (10) Acute CHF Prognosis Plan Patient has made significant strides in her clinical improvement Discharge planning is in progress to SNF Continue supportive care Monitor labs Family at bedside Plan discussed with: Patient CC Plasma Assessment Blood Product Administration S: 12:45 STEPHANIE CLAYTON MD Sep 13, 2025 19:31
--- NOTE | 2025-09-13 23:47 | DVHPN2 ---
Progress Note - Dictate Date Seen: Sep 13, 2025 Has the PT tested + for MRSA If YES, has PT been informed?: No Medical Necessity Reason Pt with a Central, PICC or Fol: Yes The following are medically ne: PICC Line, Abreu Catheter Subjective Patient was seen and evaluated in follow up. Patient remains on 2 LPM NC. Family is at bedside. CM is working on SNF placement. WBC 2.8, HGB 8.3, HCT 24.8, K 3.4. Telemetry reviewed. vital signs Vital Sign Date Time Temp Pulse Resp B/P (MAP) Pulse Ox O2 Delivery O2 Flow Rate FiO2 09/13/25 13:00 97.9 71 18 118/61 (80) 96 97.9 09/13/25 08:25 Nasal Cannula* 2 28 Total Intake and Output 09/12/25 09/12/25 09/13/25 15:00 23:00 07:00 Intake Total 300.2 ml 318 ml 350 ml Output Total 200 ml 200 ml Balance 300.2 ml 118 ml 150 ml medications Current Medications Medications Dose Ordered Sig/Erum Route Start Time Stop Time Status Last Admin Dose Admin Acetaminophen 650 mg Q6HP PRN PO 08/15/25 22:15 Sodium Chloride 10 ml QSHIFT@10,22 IV 08/19/25 22:00 09/13/25 09:21 10 ML Albumin Human 100 ml @ 100 mls/hr PRN PRN IV 08/22/25 17:00 Sodium Chloride 10 meq/Potassium Chloride 10 meq/ Calcium Gluconate 6.3 meq/Magnesium Sulfate 10 meq/ Multivitamins 10 ml/Potassium Phosphate 20 meq/ Amino Acids/ Dextrose/Purified Water 1,038.0938 ml @ 43 mls/hr Q24H9M IV 08/26/25 22:00 08/27/25 21:59 Cancel Enteral Nutritional Formula 1,000 ml 30ML/HR GT 08/26/25 15:00 09/08/25 19:27 1,000 ML Lactulose 30 ml DAILY PO 08/28/25 10:00 09/13/25 09:23 30 ML Albuterol 2.5 mg Q4HP PRN NEB 09/04/25 09:45 09/10/25 05:53 2.5 MG Spironolactone 50 mg DAILY PO 09/07/25 10:00 09/13/25 09:23 50 MG Ipratropium [place] 0.5 mg Q4HPRN PRN NEB 09/08/25 01:45 09/08/25 18:58 0.5 MG Folic Acid 1 mg DAILY PO 09/13/25 10:00 09/13/25 09:22 1 MG Amiodarone HCl 200 mg DAILY PO 09/13/25 10:00 09/13/25 09:24 200 MG Sildenafil Citrate 20 mg BID@0600,1800 PO 09/12/25 18:00 09/13/25 05:09 20 MG Carvedilol 3.125 mg BID PO 09/12/25 22:00 09/13/25 09:24 3.125 MG Patient Own Medication 10 mg DAILY PO 09/13/25 10:00 Patient Own Medication 1 DAILY PO 09/13/25 10:00 Pantoprazole Sodium 40 mg BID PO 09/13/25 10:00 09/13/25 09:24 40 MG objective GENERAL: Alert and oriented x 3. Ill appearing, morbidly obese. EYES: PERRL, EOMI. Anicteric. HENT: Moist mucous membranes. LUNGS: Decreased breath sounds. CARDIOVASCULAR: Irregular rate and rhythm. ABDOMEN: Soft, non-tender and non-distended. EXTREMITIES: No edema. NEUROLOGIC: No focal neurological deficits. SKIN: Warm, dry. laboratory and microbiology Laboratory Tests 09/13/25 10:51 09/13/25 06:29 Test 09/13/25 06:29 Range/Units Serum Glucose 118 H 74-106 mg/dL Problem List Acute metabolic encephalopathy. Acute on chronic HFpEF heart failure. Atrial Fibrillation with RVR. Severe Pulmonary Hypertension. Bradycardia. Septic shock. Acute hypoxic and hypercapnic respiratory failure. Sleep apnea. Acute hypovolemic shock. Liver cirrhosis likely due to fatty liver disease. Hypoalbuminemia. Complicated UTI . RUDDY on CKD. Hypernatremia. Pancytopenia. Morbid Obesity. Assessment/Plan Continued all current supportive medical care. Amiodarone. Coreg. GI prophylactics. Aldactone. Additional plan as per the hospital course. Plan discussed with: Patient CC Plasma Assessment Blood Product Administration S: 12:45 KATELYN ARTHUR MD Sep 13, 2025 13:49
[2025-09-14 01:00] VITALS: BP 112/63; PULSE 70; RESP 17; TEMP 98; O2SAT 97
[2025-09-14 05:00] VITALS: BP 123/71; PULSE 80; RESP 18; TEMP 97.8; O2SAT 98
[2025-09-14 07:24] VITALS: O2SAT 98
[2025-09-14 08:00] VITALS: PULSE 64; PULSE 69; RESP 18; O2SAT 98
[2025-09-14 08:34] VITALS: BP 121/43; PULSE 64; RESP 18; TEMP 98.9; O2SAT 98
[2025-09-14] MEDS: ALLOPURINOL 100 MG TAB PO SCH (10:00)
[2025-09-14 12:48] VITALS: BP 123/62; PULSE 86; RESP 19; TEMP 98.9; O2SAT 97
--- NOTE | 2025-09-14 16:26 | DVHPNRES ---
Progress Note Date Seen: Sep 14, 2025 Resident Creating Document: KLAUDIA LOWE RESIDENT Has the PT tested + for MRSA If YES, has PT been informed?: No Medical Necessity Reason Pt with a Central, PICC or Fol: Yes The following are medically ne: PICC Line, Abreu Catheter Subjective Review of Systems Ms. Worthington is a 65 year old female with past medical history of HFpEF liver cirrhosis, chronic atrial fibrillation, anemia with multiple blood transfusions in the past, and pulmonary hypertension, who presented to [facility] via EMS due shortness of breath. As per her sons, the patient has had progressively worsening bilateral leg edema for the last month associated with worsening shortness of breath for two weeks. They state that she is compliant with her medications, however, every few months they have to take their mom to the hospital for similar symptoms, with most recent hospitalization in late May 2025. She was seen by her home health nurse on Friday (08/15/2025) night, who told the family to call EMS. As per records, on scene she was found to have a saturation of 90% on room air, she placed on 2 L NC with improvement to 92% and brought to the emergency department. On initial evaluation in the ER, she was afebrile, MAP within normal range, saturating adequately on 2L NC. She was found to have anasarca reaching up to her thighs. 12 lead EKG showed atrial fibrillation. Initial labs are significant for pancytopenia, hyperkalemia, BUN 84, creatinine 2.14, BNP 207, troponins negative, and lipase 178. UA is consistent with a UTI. Chest Xray significant for hazy opacities throughout the right lung, and stable cardiomediastinal enlargement. The patient was started on IV Lasix, hyperkalemia protocol, IV antibiotics, and of 1 PRBC and was admitted for further work up and management. The patient was evaluated by nephrology who initially recommended diuresis, albumin and low dose dopamine, and midodrine, however, due to progressively worsening kidney function, dialysis was recommended. On 08/18/2025 patient was found lethargic and disoriented, blood gas showed hypoxic and hypercapnic respiratory failure, she was started on BiPAP and transferred to the ICU. Mentation continued to deteriorate and required intubation for airway protection and respiratory insufficiency. Patient presented two large bloody bowel movements requiring emergent transfusion of 2 PRBCs and vasopressors. She was evaluated by gastroenterology who recommended use of PPI, octreotide, and transfusions as needed with endoscopy when stable. Prior medical history: HFrEF, Liver cirrhosis, Chronic Atrial Fibrillation, Anemia s/p multiple blood transfusions, and pulmonary hypertension Prior surgical history: 3 c-sections Social: Sons deny any previous drug, tobacco, or alcohol use. She recently moved to the area to live with her son, Dalia. 09/05/2025: Patient was seen at bedside. Patient failed CPAP trial yesterday due to low tidal volume, tachycardia, tachypnea. Patient was diuresing very well with output -2056. Holding off IV Lasix, discontinued meropenem. Repeat urine analysis ordered. Patient is day 17 of intubation, discussed tracheostomy option with family if CPAP trial fails. Patient's son, who is the POA demonstrated understanding, we will continue this discussion after CPAP trial tomorrow. 09/06/2025: Today, CPAP trial stopped after 3-1/2 hours due to tachypnea, low tidal volume and accessory muscle use. Labs show elevated sodium, ordered free water. IV spironolactone before CPAP trial in morning tomorrow. 09/07/2025: Patient was seen at bedside. No significant overnight events. CPAP trial today in morning further on 04/19 pressures. Patient was eventually extubated. Ordered folic acid, Lasix 20. We will try feeding tomorrow. Patient had low-sodium, supplemented. Continue free water in context of hypernatremia. 09/08/2025: Patient was seen at bedside. Patient was extubated yesterday. Tachypnea overnight, required BiPAP. Patient had low-grade fever overnight. Patient had tachycardia overnight, switched p.o. amiodarone to drip. On 2 L oxygen with nasal cannula during daytime. As the day progressed patient started getting dyspneic, started on BiPAP. Pressure setting changed, FiO2 reduced to 30%, EPAP 8. ABG and CXR ordered. Continue on nightly BiPAP. We will continue Lasix p.r.n.. We will closely monitor WBC count. Discharge planning based on PT recommendations. 09/09/2025: Patient was seen at bedside. No significant overnight events. Patient was transferred to telemetry. Chest x-ray shows increased pulmonary vascular congestion. Physical therapy on board. Per nurse, physical therapy was unable to work with patient due to tachycardia with RVR. 09/10/2025: Patient seen on bedside. Patient was sleepy and tired. Currently on 2 L room air. A&O x3, no new complaints. PT on board. 09/12/2025: Patient was seen at bedside. Patient is complaining of right knee pain limiting physiotherapy. Ordered lab workup for uric acid. Switch IV medications to p.o.. We will consult social work instructor for placement in SNF for physical therapy. 09/04/25: Patient was seen at bedside. Started on allopurinol 100 mg daily for elevated uric acid. Continue CPAP nightly. Pending placement to SNF for physical therapy. Objective vital signs Vital Sign Date Time Temp Pulse Resp B/P (MAP) Pulse Ox O2 Delivery O2 Flow Rate FiO2 09/14/25 12:48 98.9 86 19 123/62 (82) 97 98.9 09/14/25 08:00 Nasal Cannula* 2 28 Total Intake and Output 09/13/25 09/13/25 09/14/25 15:00 23:00 07:00 Intake Total 300 ml 300 ml Output Total 301 ml 300 ml Balance -1 ml 0 ml medications Current Medications Medications Dose Ordered Sig/Erum Route Start Time Stop Time Status Last Admin Dose Admin Sodium Chloride 10 meq/Potassium Chloride 10 meq/ Calcium Gluconate 6.3 meq/Magnesium Sulfate 10 meq/ Multivitamins 10 ml/Potassium Phosphate 20 meq/ Amino Acids/ Dextrose/Purified Water 1,038.0938 ml @ 43 mls/hr Q24H9M IV 08/26/25 22:00 08/27/25 21:59 Cancel Examination General: A&O x3; Opens eyes spontaneously. HEENT: Pupils B/L equal and reactive to light. Normocephalic, atraumatic. Whispering. Respiratory/pulmonary: Clear bilateral breath sounds. Cardiovascular: Irregular heart rate Abdomen: Soft abdomen on palpation, normal bowel sounds Extremities: Warm bilateral extremities. B/L upper arm ecchymosis. Trace pitting edema in B/L upper and lower extremities. Skin: Small partial thickness linear skin tears (healing with scabs) approximately 0.5X1 cm in abdominal folds, left arm and left lower leg, healing with scabs. Neurological: Patient is A&O x3, following commands. Motor strength 3/5 laboratory and microbiology Laboratory Tests 09/13/25 10:51 09/13/25 06:29 Test 09/13/25 06:29 Range/Units Serum Glucose 118 H 74-106 mg/dL Microbiology Date/Time Source Procedure Growth Status 08/23/25 16:30 Urine - Abreu [place] Urine Culture - Final Complete 08/18/25 10:55 Nose MRSA Screen - Final Complete Problem List/Assessment/Plan Problem List/Assessment/Plan Neurology # Sedation, Analgesia Propofol 10 mcg/kg/hr d/c Fentanyl 150 mcg/hr d/c # Acute metabolic encephalopathy likely due to hyperammonemia Ammonia levels have normalized. Cardiovascular # Acute on chronic HFpEF heart failure Likely precipitated by fluid overload and sepsis Echocardiogram: LVEF 50%. mild mitral regurgitation. mild tricuspid regurgitation. mild to moderate pulmonic regurgitation Bumex drip, Furosemide 20 mg IV discontinued Jardiance, Furosemide, and carvedilol held at this time CXR on 09/01/2025 show increased right hemithorax pleural opacification. Holding off IV Lasix Cardiology on board. Per cardiology, amiodarone, diuretics with Lasix, GI prophylaxis. # Chronic Atrial Fibrillation Continue amiodarone 200 mg p.o daily # Severe Pulmonary Hypertension Sildenafil held Restarted on Ambrisentan 5 mg # Bradycardia Midodrine 10 mg TID Discontinued Dopamine 2 mcg d/t tachycardia # Septic shock (POA Unable to determine) D/c'd Levophed Respiratory # Ventilator Intubated (08/19/2025) Extubated on 09/07/2025 # Acute hypoxic respiratory failure # Acute hypercapnic respiratory failure # Sleep apnea, possible # Obesity hyperventilation syndrome, possible S/p extubation Blood gas show normalization of pH, pCO2, pO2 On 2 L oxygen with nasal cannula during daytime. ABG and CXR ordered. Continue on nightly BiPAP. Patient on CPAP at home # Pulmonary Edema with bilateral pleural effusions Chest xray: Stable appearing pulmonary edema and small bilateral pleural effusions. # Pneumonia, ruled out Azithromycin discontinued Gastrointestinal # Acute hypovolemic shock likely due to Lower GI Bleed # Segmental ischemic colitis or diverticular disease, possible 8 PRBC transfusions, 4 FFPs, 5 Platelet transfusions Stool occult positive, discontinued Sandostatin Protonix 40 mg IV BID Vasopressin discontinued Quadlevo discontinued Dopamine switched to Levophed d/t Tachycardia; NS 250 cc bolus given H&H stable; continue monitoring Completed Bedside colonoscopy today. As per GI specialist, patient has diverticulosis, likely the source GI bleed. No active bleed seen. # Liver cirrhosis likely due to fatty liver disease # Acute metabolic encephalopathy likely due to hyperammonemia # Hypoalbuminemia MELD score 26 Continue lactulose Monitor ammonia Albumin supplemented Continue IV Lasix 20 mg PRN Continue spironolactone # Cholelithaisis Abdominal US: The gallbladder wall measures 0.3 cm and is normal in size. Gallstones are noted. # 2 cm sliding type hiatal hernia # Mild gastritis EGD 08/26/2025: 1-2 cm sliding-type hiatal hernia with no significant erosive esophagitis, mild gastritis involving the antrum and body of the stomach with some linear gastric erosions GI recommended Protonix 40 mg b.i.d. IV, discontinue IV Sandostatin drip, continue to monitor labs and transfuse if hemoglobin drops below 7, elective colonoscopy once medically stabilized Continue IV iron therapy CT scan of the abdomen pelvis shows liver cirrhosis, splenomegaly. Pulmonary hypertension, B/L LL opacities. Enlargement of the uterus with a lobulated contour and scattered calcifications, possibly referable to fibroids. Genitourinary # Abreu catheter present draining clear urine # Complicated UTI Urine culture: E coli ESBL Discontinued Meropenem UA shows signs of improved infection UC: No growth after 48 hours Urine analysis from 09/06/25 negative for UTI Nephrology # RUDDY on CKD likely due to hemodynamically mediated (d/t VMN) Per nephrology, renal function is improving, dialysis is being held at this time. Jose M catheter remain in its place due to thrombocytopenia until patient is more stabilized. # Hyperkalemia, resolved # Hypernatremia Monitor BMP D5 given Infectious disease # Sepsis d/t below (POA Unable to determine) # Possible Septic Shock due to below (POA Unable to determine) # Complicated ESBL UTI D/c'd Meropenem 1 g IV BID Urine Culture: E. Coli ESBL Follow up UA shows improvement; Follow up UC shows no growth at 48 hours Vasopressin d/c Quadlevo discontinued Hem/onc # Acute hypovolemic shock likely due to Lower GI Bleed Managed w/ 8 PRBC transfusions, 4 FFPs, 5 Platelet transfusions D/c Sandostatin drip Protonix 40 mg po daily Dopamine switched to Levophed d/t Tachycardia (08/29/25); Levophed discontinued in context of SBP> 90 # Pancytopenia Possibly associated to liver cirrhosis We will closely monitor WBC count. Endocrinology # Morbid Obesity BMI 57.4 # Hyperuricemia P.o. allopurinol 100 mg daily DVT prophylaxis: SCDs Peptic ulcer prophylaxis: Pantoprazole 40 mg p.o. Nutrition: Passed bedside swallow eval, trial of p.o nutrition with close supervision. Aspiration precautions ordered Lines -R PICC line 08/19 -Abreu catheter 08/19 -ET tube: 08/19 -Jose M catheter 08/19 Drips [facility] ventilation: Propofol 10 mcg/kg/min Fentanyl 150 mcg/hr Vasopressin held Quadlevo discontinued Sandostatin discontinued Dopamine discontinued Levophed started (08/29/25) held Code status discussed greater than 20 minutes: Full CODE STATUS. Family at bedside explained about the condition of the patient. Goals of care discussed with son on bedside. Plan discussed with Dr. Gallo Plan discussed with: Son, Other (nurses) CC Plasma Assessment Blood Product Administration S: 12:45 Visit Coding STANDARD RES Billing Provider: ALINA GALLO MD Date of Service if different f: Sep 14, 2025 Common Visit Codes: 90111-HWTOLYPCSE INP/OBS CARE(HIGH) Secondary Visit Codes: 07118-[id number] CARE PLAN 30 MINUTES KLAUDIA LOWE RESIDENT Sep 14, 2025 16:26 ALINA GALLO MD Sep 16, 2025 12:48
--- NOTE | 2025-09-14 17:29 | DVHPN2 ---
Progress Note - Dictate Date Seen: Sep 14, 2025 (Late entryPatient seen at 10:00 a.m.) Has the PT tested + for MRSA If YES, has PT been informed?: No Medical Necessity Reason Pt with a Central, PICC or Fol: Yes The following are medically ne: PICC Line, Abreu Catheter Subjective Patient is stable with no new complaints Patient is tolerating pureed diet and taking her medications Patient has also been moving her bowels, no active GI bleeding reported Patient just on nasal cannula 2 L EGD was negative, small hiatal hernia mild gastritis no bleeding Colonoscopy showed diverticulosis vital signs Vital Sign Date Time Temp Pulse Resp B/P (MAP) Pulse Ox O2 Delivery O2 Flow Rate FiO2 09/14/25 12:48 98.9 86 19 123/62 (82) 97 98.9 09/14/25 08:00 Nasal Cannula* 2 28 Total Intake and Output 09/13/25 09/13/25 09/14/25 15:00 23:00 07:00 Intake Total 300 ml 300 ml Output Total 301 ml 300 ml Balance -1 ml 0 ml medications Current Medications Medications Dose Ordered Sig/Erum Route Start Time Stop Time Status Last Admin Dose Admin Sodium Chloride 10 meq/Potassium Chloride 10 meq/ Calcium Gluconate 6.3 meq/Magnesium Sulfate 10 meq/ Multivitamins 10 ml/Potassium Phosphate 20 meq/ Amino Acids/ Dextrose/Purified Water 1,038.0938 ml @ 43 mls/hr Q24H9M IV 08/26/25 22:00 08/27/25 21:59 Cancel objective General: Obese, afebrile, palor, mucosae are moist Cardiovascular: Regular S1 and S2. No murmurs, gallops or rubs. No JVD elevation. Bilateral pedal edema. Respiratory: Decreased breath sounds heard on auscultation, extubated on 2 L nasal cannula Abdomen: Soft, nontender, nondistended, hypoactive bowel sounds, no rebound tenderness, no organomegaly, no masses Genitourinary: Abreu catheter seen Neurological: Pupils are isocoric and reactive. laboratory and microbiology Laboratory Tests 09/13/25 10:51 09/13/25 06:29 Test 09/13/25 06:29 Range/Units Serum Glucose 118 H 74-106 mg/dL Problems(with codes): (1) Neutropenia (2) CHF exacerbation (3) Rectal bleeding (4) Thrombocytopenia (5) Hypoxemia (6) Anemia (7) Acute hyperkalemia (8) Acute renal failure (9) Anasarca (10) Hypoxic respiratory failure (11) Acute CHF Prognosis PLAN Patient has made significant strides in her clinical improvement Discharge planning is in progress to SNF to [facility] today Continue supportive care Monitor labs Family at bedside Plan discussed with: Patient CC Plasma Assessment Blood Product Administration S: 12:45 STEPHANIE CLAYTON MD Sep 14, 2025 17:29
--- NOTE | 2025-09-14 22:32 | DVHPN2 ---
Progress Note - Dictate Date Seen: Sep 14, 2025 Has the PT tested + for MRSA If YES, has PT been informed?: No Medical Necessity Reason Pt with a Central, PICC or Fol: Yes The following are medically ne: PICC Line, Abreu Catheter Subjective Patient was seen and evaluated in follow up. No overnight events. Patient is on 2 LPM NC. Per CM, patient was accepted to [facility] under the care of . Patient is cardiac stable for discharge. Telemetry reviewed. vital signs Vital Sign Date Time Temp Pulse Resp B/P (MAP) Pulse Ox O2 Delivery O2 Flow Rate FiO2 09/14/25 12:48 98.9 86 19 123/62 (82) 97 98.9 09/14/25 07:24 Nasal Cannula* 2 28 Total Intake and Output 09/13/25 09/13/25 09/14/25 15:00 23:00 07:00 Intake Total 300 ml 300 ml Output Total 301 ml 300 ml Balance -1 ml 0 ml medications Current Medications Medications Dose Ordered Sig/Erum Route Start Time Stop Time Status Last Admin Dose Admin Acetaminophen 650 mg Q6HP PRN PO 08/15/25 22:15 Sodium Chloride 10 ml QSHIFT@10,22 IV 08/19/25 22:00 09/14/25 10:08 10 ML Albumin Human 100 ml @ 100 mls/hr PRN PRN IV 08/22/25 17:00 Sodium Chloride 10 meq/Potassium Chloride 10 meq/ Calcium Gluconate 6.3 meq/Magnesium Sulfate 10 meq/ Multivitamins 10 ml/Potassium Phosphate 20 meq/ Amino Acids/ Dextrose/Purified Water 1,038.0938 ml @ 43 mls/hr Q24H9M IV 08/26/25 22:00 08/27/25 21:59 Cancel Lactulose 30 ml DAILY PO 08/28/25 10:00 09/14/25 10:00 30 ML Albuterol 2.5 mg Q4HP PRN NEB 09/04/25 09:45 09/13/25 19:15 2.5 MG Spironolactone 50 mg DAILY PO 09/07/25 10:00 09/14/25 10:00 50 MG Ipratropium [place] 0.5 mg Q4HPRN PRN NEB 09/08/25 01:45 09/13/25 19:15 0.5 MG Folic Acid 1 mg DAILY PO 09/13/25 10:00 09/14/25 10:00 1 MG Amiodarone HCl 200 mg DAILY PO 09/13/25 10:00 09/14/25 09:59 200 MG Sildenafil Citrate 20 mg BID@0600,1800 PO 09/12/25 18:00 09/14/25 05:58 20 MG Carvedilol 3.125 mg BID PO 09/12/25 22:00 09/14/25 10:01 3.125 MG Patient Own Medication 10 mg DAILY PO 09/13/25 10:00 Patient Own Medication 1 DAILY PO 09/13/25 10:00 Pantoprazole Sodium 40 mg BID PO 09/13/25 10:00 09/14/25 10:00 40 MG Allopurinol 100 mg DAILY PO 09/14/25 10:00 09/14/25 10:00 100 MG objective GENERAL: Alert and oriented x 3. Ill appearing, morbidly obese. EYES: PERRL, EOMI. Anicteric. HENT: Moist mucous membranes. LUNGS: Decreased breath sounds. CARDIOVASCULAR: Irregular rate and rhythm. ABDOMEN: Soft, non-tender and non-distended. EXTREMITIES: No edema. NEUROLOGIC: No focal neurological deficits. SKIN: Warm, dry. laboratory and microbiology Laboratory Tests 09/13/25 10:51 09/13/25 06:29 Test 09/13/25 06:29 Range/Units Serum Glucose 118 H 74-106 mg/dL Problem List Acute metabolic encephalopathy. Acute on chronic HFpEF heart failure. Atrial Fibrillation with RVR. Severe Pulmonary Hypertension. Bradycardia. Septic shock. Acute hypoxic and hypercapnic respiratory failure. Sleep apnea. Acute hypovolemic shock. Liver cirrhosis likely due to fatty liver disease. Hypoalbuminemia. Complicated UTI . RUDDY on CKD. Hypernatremia. Pancytopenia. Morbid Obesity. Assessment/Plan Continued all current supportive medical care. Amiodarone. Coreg. GI prophylactics. Aldactone. Additional plan as per the hospital course. Plan discussed with: Patient CC Plasma Assessment Blood Product Administration S: 12:45 KATELYN ARTHUR MD Sep 14, 2025 13:07
== END 2025-09-14 15:15 | DRG 207 ==
LOC: EDBD 19:13 → ER 19:13 → EDSEX 19:13 → OVERFLOW 20:38 → TELE-CENTR 08-16 19:02 → ICU WEST 08-18 10:38 → TELE-CENTR 09-09 06:16
PROVIDERS: ADMIT Internal Medicine; ATTEND Internal Medicine
PROC: 5A09357 Assistance with Respiratory Ventilation, Less than 24 Consecutive Hours, Continuous Positive Airway Pressure (ICD-10-PCS; 2025-08-18)
PROC: 5A1955Z Respiratory Ventilation, Greater than 96 Consecutive Hours (ICD-10-PCS; principal; 2025-08-19)
PROC: 5A1D70Z Performance of Urinary Filtration, Intermittent, Less than 6 Hours Per Day (ICD-10-PCS; 2025-08-19)
PROC: 0BH17EZ Insertion of Endotracheal Airway into Trachea, Via Natural or Artificial Opening (ICD-10-PCS; 2025-08-19)
PROC: 30233N1 Transfusion of Nonautologous Red Blood Cells into Peripheral Vein, Percutaneous Approach (ICD-10-PCS; 2025-08-19)
PROC: 30233K1 Transfusion of Nonautologous Frozen Plasma into Peripheral Vein, Percutaneous Approach (ICD-10-PCS; 2025-08-19)
PROC: 5A09357 Assistance with Respiratory Ventilation, Less than 24 Consecutive Hours, Continuous Positive Airway Pressure (ICD-10-PCS; 2025-08-19)
PROC: 02HV33Z Insertion of Infusion Device into Superior Vena Cava, Percutaneous Approach (ICD-10-PCS; 2025-08-19)
PROC: B548ZZA Ultrasonography of Superior Vena Cava, Guidance (ICD-10-PCS; 2025-08-19)
PROC: 02HV33Z Insertion of Infusion Device into Superior Vena Cava, Percutaneous Approach (ICD-10-PCS; 2025-08-19)
PROC: B548ZZA Ultrasonography of Superior Vena Cava, Guidance (ICD-10-PCS; 2025-08-19)
PROC: 5A1D70Z Performance of Urinary Filtration, Intermittent, Less than 6 Hours Per Day (ICD-10-PCS; 2025-08-20)
PROC: 30233R1 Transfusion of Nonautologous Platelets into Peripheral Vein, Percutaneous Approach (ICD-10-PCS; 2025-08-20)
PROC: 5A1D70Z Performance of Urinary Filtration, Intermittent, Less than 6 Hours Per Day (ICD-10-PCS; 2025-08-21)
PROC: 5A1D70Z Performance of Urinary Filtration, Intermittent, Less than 6 Hours Per Day (ICD-10-PCS; 2025-08-22)
PROC: 0DB68ZX Excision of Stomach, Via Natural or Artificial Opening Endoscopic, Diagnostic (ICD-10-PCS; 2025-08-26)
PROC: 0DJD8ZZ Inspection of Lower Intestinal Tract, Via Natural or Artificial Opening Endoscopic (ICD-10-PCS; 2025-09-02)
PROC: 5A09357 Assistance with Respiratory Ventilation, Less than 24 Consecutive Hours, Continuous Positive Airway Pressure (ICD-10-PCS; 2025-09-08)
PROC: 5A09357 Assistance with Respiratory Ventilation, Less than 24 Consecutive Hours, Continuous Positive Airway Pressure (ICD-10-PCS; 2025-09-09)
PROC: 5A09357 Assistance with Respiratory Ventilation, Less than 24 Consecutive Hours, Continuous Positive Airway Pressure (ICD-10-PCS; 2025-09-10)
PROC: 5A09357 Assistance with Respiratory Ventilation, Less than 24 Consecutive Hours, Continuous Positive Airway Pressure (ICD-10-PCS; 2025-09-13)
DX: J96.21 Acute and chronic respiratory failure with hypoxia (principal); A41.9 Sepsis, unspecified organism; K85.90 Acute pancreatitis without necrosis or infection, unspecified; R57.1 Hypovolemic shock; N18.6 End stage renal disease; R57.8 Other shock; I50.33 Acute on chronic diastolic (congestive) heart failure; G93.41 Metabolic encephalopathy; J15.69 Pneumonia due to other Gram-negative bacteria; R65.21 Severe sepsis with septic shock; I13.2 Hypertensive heart and chronic kidney disease with heart failure and with stage 5 chronic kidney disease, or end stage renal disease; E87.0 Hyperosmolality and hypernatremia; D61.818 Other pancytopenia; N17.9 Acute kidney failure, unspecified; Z99.2 Dependence on renal dialysis; J96.22 Acute and chronic respiratory failure with hypercapnia; I27.20 Pulmonary hypertension, unspecified; K76.82 Hepatic encephalopathy; E66.01 Morbid (severe) obesity due to excess calories; N39.0 Urinary tract infection, site not specified; D62 Acute posthemorrhagic anemia; N25.81 Secondary hyperparathyroidism of renal origin; E87.4 Mixed disorder of acid-base balance; Z68.44 Body mass index [BMI] 60.0-69.9, adult; E83.39 Other disorders of phosphorus metabolism; E87.5 Hyperkalemia; E88.09 Other disorders of plasma-protein metabolism, not elsewhere classified; I48.91 Unspecified atrial fibrillation; K64.8 Other hemorrhoids; K76.0 Fatty (change of) liver, not elsewhere classified; K80.20 Calculus of gallbladder without cholecystitis without obstruction; R16.2 Hepatomegaly with splenomegaly, not elsewhere classified; R00.1 Bradycardia, unspecified; K64.9 Unspecified hemorrhoids; K74.60 Unspecified cirrhosis of liver; G47.33 Obstructive sleep apnea (adult) (pediatric); K57.30 Diverticulosis of large intestine without perforation or abscess without bleeding; K29.70 Gastritis, unspecified, without bleeding; K44.9 Diaphragmatic hernia without obstruction or gangrene; Z79.899 Other long term (current) drug therapy
CPT/HCPCS: 36415; 36556; 36569; 36600; 71045; 74176; 76700; 76937; 80048; 80053; 81001; 82105; 82140; 82270; 82306; 82550; 82570; 82728; 82805; 82962; 83540; 83550; 83605; 83690; 83735; 83880; 83970; 84100; 84132; 84156; 84300; 84478; 84484; 84550; 85007; 85014; 85018; 85025; 85027; 85610; 85730; 86038; 86706; 86803; 86850; 86900; 86901; 86920; 87081; 87086; 87088; 87186; 87340; 90935; 92610; 93005; 94002; 94003; 94640; 94660; 97110; 97163; 97530; 99291; A4618; G0378; J1642; J1756; J1815; J2185; J2250; J2405; J2470; J2704; J3480; J7060; J7131; P9047